=== PATIENT | male | born 1945 | race Caucasian/White ===

== ENCOUNTER 2020-12-25 10:43 | Outpatient (CLI) | payer MEDICARE, SELFPAY | END 2020-12-25 10:44 | disposition home or self-care (01) | PROVIDERS: PCP Family Medicine | DX: Z23 Encounter for immunization (principal) | CPT/HCPCS: 0001A; 91300 ==

== ENCOUNTER 2021-01-15 13:48 | Outpatient (CLI) | payer MEDICARE, SELFPAY | END 2021-01-15 13:49 | disposition home or self-care (01) | LOC: ANHCOVIDVC 13:48 | PROVIDERS: PCP Family Medicine | DX: Z23 Encounter for immunization (principal) | CPT/HCPCS: 0002A; 91300 ==

== ENCOUNTER 2021-10-21 13:54 | Emergency (ER) | payer MEDICARE, SELFPAY ==
[2021-10-21 14:12] VITALS: BP 146/82; PULSE 81; RESP 18; TEMP 36.4; O2SAT 100
--- NOTE | 2021-10-21 14:54 | ED.GENADULT ---
HPI - General Adult General Chief complaint: Upper Respiratory Infection Stated complaint: sorethroat Source: patient Mode of arrival: ambulatory Limitations: no limitations History of Present Illness HPI narrative: Patient is a 76-year-old male who presents to the [facility] via POV for evaluation of a sore throat that began this morning. Additionally, he reports swollen lymph nodes. He states his throat pain is intermittent and scratchy in nature. He also reports his sore throat has been improving after using warm salt water gargles. Nothing worsens symptoms. Denies known exposure to sick contacts. Patient reports he is fully vaccinated against Covid and influenza. He also reports having been vaccinated with the Covid booster. Related Data Home Medications Medication Instructions Recorded Confirmed isosorbide mononitrate 30 mg 30 mg PO DAILY 10/04/19 10/21/21 tablet,extended release 24 hr aspirin 81 mg tablet,delayed 81 mg PO DAILY 11/27/20 10/21/21 release calcium citrate 250 mg PO DAILY 11/27/20 10/21/21 cyanocobalamin (vitamin B-12) 5,000 mcg PO DAILY 11/27/20 10/21/21 5,000 mcg capsule ferrous sulfate 325 mg (65 mg 325 mg PO DAILY 11/27/20 10/21/21 iron) tablet multivitamin 1 tablet PO DAILY 11/27/20 10/21/21 omega-3 fatty acids 1,000 mg 1,000 mg PO DAILY 11/27/20 10/21/21 capsule rosuvastatin 20 mg tablet 20 mg PO DAILY 03/05/21 10/21/21 Allergies Allergy/AdvReac Type Severity Reaction Status Date / Time Penicillins Allergy Unknown Hives Verified 10/21/21 14:26 Review of Systems Review of Systems: Denies fever, chills, sweats, change in appetite, poor p.o. intake, rhinorrhea, sinus problems, nasal congestion, drooling, difficulty swallowing, voice changes, cough, shortness of breath, wheezing, abdominal pain, nausea, vomiting, diarrhea, chest pain, heart palpitations PMFSH Past Medical History Medical History Atrophy of muscle of right thigh Dysplastic nevi Hearing loss Macrocytic anemia Mixed axonal-demyelinating polyneuropathy Myelodysplasia (myelodysplastic syndrome) Other spondylosis, lumbar region Overweight (BMI 25.0-29.9) Squamous cell carcinoma of scalp Weight loss Family History Family History Father Cerebrovascular accident Social History Social History Second hand tobacco smoke exposure: No Alcohol intake: current Comments I have reviewed and agree with the patient's past medical, surgical, social, and family hx as documented by the RN. There is no relevant family history pertinent to the presenting complaint. Exam Narrative: GENERAL: Well-appearing, well-nourished, and in no acute distress. HEAD: Normocephalic, atraumatic. No sinus tenderness or facial swelling appreciated. EYES: PERRLA and EOMI. No evidence of erythema, swelling, or drainage. ENT: Bilateral external ears and ear canals normal. Bilateral TMs are normal.No TM perforation. Nares clear, no rhinorrhea or epistaxis. Bilateral turbinates without erythema/ swelling. Mucous membranes moist and pink. Uvula is midline without erythema and swelling. Posterior pharynx is subtly erythematous otherwise normal. Breath odor and voice normal. NECK: Supple. No Lymphadenopathy or nuchal rigidity appreciated. CHEST: Bilateral lung diehl are clear to auscultation. No respiratory distress. No evidence of cough or pleuritic cp upon examination. HEART: Regular rate and rhythm. No murmur, gallop, or rub heard. EXTREMITIES: Normal range of motion. No edema. SKIN: Warm, dry, no rash. NEURO: No focal deficits. Alert and oriented x3. Course Vital Signs Vital signs: Vital Signs Temperature 97.6 F 10/21/21 14:12 Pulse Rate 81 10/21/21 14:12 Respiratory Rate 18 10/21/21 14:12 Blood Pressure 146/82 H 10/21/21 14:12 Puls
[2021-10-22 12:27] LABS: SARS-CoV-2 RNA PCR Negative
== END 2021-10-21 15:10 | disposition home or self-care (01) ==
PROVIDERS: Emergency Provider Nurse Practitioner Family; PCP Family Medicine
DX: J02.9 Acute pharyngitis, unspecified (principal); Z20.822 Contact with and (suspected) exposure to COVID-19; D53.9 Nutritional anemia, unspecified; M62.551 Muscle wasting and atrophy, not elsewhere classified, right thigh; D46.9 Myelodysplastic syndrome, unspecified; M47.896 Other spondylosis, lumbar region; Z85.828 Personal history of other malignant neoplasm of skin
CPT/HCPCS: 87081; 87880; 99213; C9803; G0463; U0003; U0005

== ENCOUNTER 2022-09-23 10:04 | Outpatient (CLI) | payer MEDICARE, SELFPAY ==
[2022-09-23 18:59] LABS: Alanine Aminotransferase 26 U/L (6-50); Albumin Level 4.2 g/dL (3.5-5.1); Alkaline Phosphatase 56 U/L (38-126); Anion Gap 8 mmol/L (8-16); Aspartate Amino Transferase 54 U/L (17-59); Bilirubin,Total 0.6 mg/dL (0.2-1.3); Blood Urea Nitrogen 22 mg/dL (9-20); Calcium 8.8 mg/dL (8.4-10.2); Carbon Dioxide 27 mmol/L (22-30); Chloride 102 mmol/L (98-107); Cholesterol 151 mg/dL (0-200); Estimated Glomerular Filt Rate > 60; Glucose 155 mg/dL (65-110); HDL Direct 43 mg/dL; Potassium 4.1 mmol/L (3.4-5.0); Sodium 137 mmol/L (137-145); Triglycerides 70 mg/dL (<150)
[2022-09-23 19:10] LABS: LDL Cholesterol Direct 86 mg/dL
[2022-09-23 19:30] LABS: Creatinine Urine 98.8 mg/dL
[2022-09-23 19:33] LABS: MALB Creatinine Ratio 157.2 mg/g (0-30); Microalbumin Urine Random 155.3 mg/L (0-16.7)
[2022-09-23 20:01] LABS: Hemoglobin A1C 7.3 % (<5.7)
== END 2022-09-23 10:05 | disposition home or self-care (01) ==
PROVIDERS: PCP Family Medicine; Visit Provider Family Medicine
DX: E11.9 Type 2 diabetes mellitus without complications (principal)
CPT/HCPCS: 36415; 80053; 80061; 82043; 83036

== ENCOUNTER 2022-10-11 15:50 | Outpatient (CLI) | payer MEDICARE, SELFPAY ==
[2022-10-11 19:01] LABS: INR 1.2; Prothrombin Time 14.7 Seconds (11.1-14.7)
[2022-10-11 19:07] LABS: Basophils Percent Auto 0.7 % (0.2-1.2); Eosinophils Absolute Auto 0.1 K/mm3 (0-0.3); Eosinophils Percent Auto 2.4 % (0-4.4); Hematocrit 27.6 % (42.0-52.0); Hemoglobin 9.2 g/dL (14.0-18.0); Immature Granulocyte Absolute 0.01 K/mm3 (0.00-0.031); Immature Granulocyte Percent A 0.2 % (0-0.5); Lymphocytes Absolute Auto 1.04 K/mm3 (0.9-3.2); Lymphocytes Percent Auto 24.6 % (18.3-44.2); Mean Corpuscular HGB Conc 33.3 g/dl (32-36); Mean Corpuscular Hemoglobin 36.9 pg (26-34); Mean Corpuscular Volume 110.8 fl (80-100); Mean Platelet Volume 10.1 fl (7.4-10.4); Monocytes Absolute Auto 0.4 K/mm3 (0.1-0.6); Monocytes Percent Auto 9.5 % (2.6-8.5); Neutrophils Absolute Auto 2.7 K/mm3 (1.3-6.7); Neutrophils Percent Auto 62.6 % (45.5-73.1); Platelet Count Result 237 k/mm3 (150-375); Red Blood Count 2.49 M/mm3 (4.6-6.20); Red Cell Distribution Width 15.1 % (11.5-14.5); White Blood Count 4.2 K/mm3 (4.5-10.0)
[2022-10-11 19:08] LABS: Alanine Aminotransferase 36 U/L (6-50); Albumin Level 4.4 g/dL (3.5-5.1); Alkaline Phosphatase 59 U/L (38-126); Anion Gap 6 mmol/L (8-16); Aspartate Amino Transferase 34 U/L (17-59); Bilirubin,Total 0.4 mg/dL (0.2-1.3); Blood Urea Nitrogen 29 mg/dL (9-20); Calcium 8.8 mg/dL (8.4-10.2); Carbon Dioxide 27 mmol/L (22-30); Chloride 101 mmol/L (98-107); Estimated Glomerular Filt Rate 53; Glucose 326 mg/dL (65-110); Potassium 4.7 mmol/L (3.4-5.0); Sodium 134 mmol/L (137-145)
[2022-10-11 20:11] LABS: Platelet Estimate Adequate (Adequate); Schistocytes None Seen (NORMAL)
[2022-10-11 20:12] LABS: Anisocytosis 3+ (NORMAL)
== END 2022-10-11 15:51 | disposition home or self-care (01) ==
PROVIDERS: PCP Family Medicine; Visit Provider Internal Medicine Cardiovascular Disease
DX: I25.119 Atherosclerotic heart disease of native coronary artery with unspecified angina pectoris (principal); Z01.812 Encounter for preprocedural laboratory examination
CPT/HCPCS: 36415; 80053; 85025; 85610

== ENCOUNTER 2022-10-12 10:14 | Emergency (ER) | payer MEDICARE, SELFPAY ==
--- NOTE | ~2022-10-12 | CT_ITS ---
EXAMINATION: CT abdomen pelvis wo con DATE: 10/12/2022 13:30 INDICATION: Abdominal pain. Constipation. TECHNIQUE: Computed tomography (CT) of the abdomen and pelvis was performed without intravenous contr ast. Automated exposure control and iterative reconstruction technique were employed. The dose-length product was 386.29 mGy-cm. COMPARISON: None FINDINGS: Small bilateral pleural effusions, right greater than left. Right basilar atelectasis. Heart size is normal. No pericardial effusion. Atherosclerotic coronary artery calcification. Liver, gallbladder, p ancreas and bilateral adrenal glands are normal. Multiple splenic calcifications consistent with old granulomatous disease. Bilateral nephrolithiasis with 5 stones in the right kidney measuring up to 2 mm and 4 mm stone at the upper pole of the left kidney. Mild right and moderate left hydroureteroneph rosis. 2 mm nonobstructing stone in the dependent aspect of the dilated distalmost left ureter positi oned approximately 3 to 4 cm from the left ureterovesicular junction. 6 mm and 4 mm bladder stones in the dependent right trigonal region of the bladder, unclear whether freely mobile in the bladder or position within a ureterocele at the right ureterovesicular junction. Prostatomegaly which impresses upon the base of the distended bladder. Multiple phleboliths in the pelvis. Peyronie's disease with s mall amount of calcification along the penile tunica albuginea. Moderate amount of stool scattered th roughout the colon. Small bowel and appendix are normal. No free intraperitoneal gas or fluid. No pat hologically enlarged abdominal or pelvic lymphadenopathy. Small fat-containing left inguinal hernia. Mild lumbar dextrocurvature with severe spondylosis. Chronic T12 compression fracture with 50% anteri or vertebral body height loss. Severe left hip osteoarthritis. Chronic sclerotic lesion in the right supra-acetabular region likely representing an enchondroma which can be seen dating back to 02/01/2014 . IMPRESSION: 1. Bilateral nephrolithiasis with mild right and moderate left hydroureteronephrosis. There is also d istention of the bladder suggesting this may be related to outlet obstruction from the enlarged prost ate. There is however a 2 mm stone in the dependent aspect of the dilated distal left ureter, not cur rently but potentially transiently obstructing. There are also 6 mm and 4 mm stones at the right depe ndent bladder near the expected location of the right ureterovesicular junction, unclear whether free ly mobile or position within a ureterocele and also potentially obstructing. 2. Moderate amount of stool scattered throughout the colon consistent with constipation. 3. Small bilateral pleural effusions, right greater than left. Reviewed, dictated and finalized at location L. CAL THERAPIST IMPRESSION: 1. Bilateral nephrolithiasis with mild right and moderate left hydroureteroneph rosis. There is also distention of the bladder suggesting this may be related t o outlet obstruction from the enlarged prostate. There is however a 2 mm stone in the dependent aspect of the dilated distal left ureter, not currently but po tentially transiently obstructing. There are also 6 mm and 4 mm stones at the r ight dependent bladder near the expected location of the right ureterovesicular junction, unclear whether freely mobile or position within a ureterocele and a lso potentially obstructing. 2. Moderate amount of stool scattered throughout the colon consistent with cons tipation. 3. Small bilateral pleural effusions, right greater than left.
[2022-10-12 10:19] VITALS: BP 148/68; PULSE 92; RESP 16; TEMP 36.6; O2SAT 99
--- NOTE | 2022-10-12 12:38 | ED.ABDPAIN ---
HPI - Abdominal Pain General Chief Complaint: Abdominal Pain Stated Complaint: constipation Time Seen by Provider: 10/12/22 12:24 History of Present Illness HPI narrative: Patient is a 77-year-old male with a history of hypertension, hyperlipidemia, hypothyroidism, CHF presenting with abdominal pain. Patient states over the last 2 days he has been unable to have a bowel movement and has been feeling increasingly bloated. States that he has diffuse abdominal pain that is worsened with any slight movement. States that he became nauseated last night which has persisted through this afternoon. States he was able to tolerate water and has not had any vomiting. States that he has been unable to urinate since last night states he feels its related to his bloating. He denies prior abdominal surgeries. States he is unable to pass flatus. Denies recent fevers or chills, headache, chest pain, shortness of breath, cough, dysuria, hematuria, leg swelling. Related Data Home Medications Medication Instructions Recorded Confirmed isosorbide mononitrate 30 mg 30 mg PO DAILY 10/04/19 01/11/22 tablet,extended release 24 hr aspirin 81 mg tablet,delayed 81 mg PO DAILY 11/27/20 01/11/22 release (Adult Low Dose Aspirin) calcium citrate 250 mg PO DAILY 11/27/20 01/11/22 cyanocobalamin (vitamin B-12) 5,000 mcg PO DAILY 11/27/20 01/11/22 5,000 mcg capsule ferrous sulfate 325 mg (65 mg 325 mg PO DAILY 11/27/20 01/11/22 iron) tablet (Feosol) multivitamin (Daily Multi-Vitamin 1 tablet PO DAILY 11/27/20 01/11/22 tablet) omega-3 fatty acids 1,000 mg 1,000 mg PO DAILY 11/27/20 01/11/22 capsule (Super [place]-3) insulin detemir U-100 100 unit/mL 6 unit subcut QHS 01/11/22 01/11/22 (3 mL) subcutaneous pen (Levemir FlexTouch U-100 Insulin) Allergies Allergy/AdvReac Type Severity Reaction Status Date / Time Penicillins Allergy Unknown Hives Verified 09/27/22 10:52 Review of Systems Review of Systems: All systems reviewed & are unremarkable except as noted in HPI and below PMFSH Past Medical History Medical History Atrophy of muscle of right thigh Diabetic nephropathy associated with type 2 diabetes mellitus Dysplastic nevi Hearing loss Macrocytic anemia Mixed axonal-demyelinating polyneuropathy Myelodysplasia (myelodysplastic syndrome) Other spondylosis, lumbar region Overweight (BMI 25.0-29.9) Squamous cell carcinoma of scalp Weight loss Surgical History Surgical History History of quadruple bypass Family History Family History Father Cerebrovascular accident Mother due to natural causes Son Diabetes mellitus Social History Social History Smoking status: Never smoker Second hand tobacco smoke exposure: No Alcohol intake: current Substance use: never Substance use type: does not use Lack of Transportation: No Lack of Food: Never True Current Housing: I Have Housing Concerned About Future Housing: No Difficulty Paying Gas/Electric Bills: No Difficulty Paying for Meds: No Currently Unemployed: No Education: Bachelor's Degree Difficulty w/ Childcare or Family Care: No Additional living arrangements comments: Exam Narrative: GENERAL: Well-appearing, well-nourished, and in no acute distress. HEAD: Normocephalic, atraumatic. EYES: PERRLA and EOMI. ENT: Nares clear, no rhinorrhea or epistaxis. Mucous membranes moist. NECK: Supple. CHEST: Clear to auscultation. No respiratory distress. HEART: Regular rate and rhythm. No murmur heard. Normal peripheral pulses. ABDOMEN: Soft, diffusely tender, no guarding or rebound, normal active bowel sounds. EXTREMITIES: Normal range of motion. No edema. SKIN: Warm, dry, no rash. MARY
[2022-10-12 12:56] LABS: Basophils Percent Auto 0.5 % (0.2-1.2); Eosinophils Absolute Auto 0.1 K/mm3 (0-0.3); Eosinophils Percent Auto 0.8 % (0-4.4); Hematocrit 28.5 % (42.0-52.0); Hemoglobin 9.4 g/dL (14.0-18.0); Immature Granulocyte Absolute 0.02 K/mm3 (0.00-0.031); Immature Granulocyte Percent A 0.3 % (0-0.5); Lymphocytes Absolute Auto 0.94 K/mm3 (0.9-3.2); Lymphocytes Percent Auto 15.6 % (18.3-44.2); Mean Corpuscular Hemoglobin 37.3 pg (26-34); Mean Corpuscular Volume 113.1 fl (80-100); Mean Platelet Volume 10.1 fl (7.4-10.4); Monocytes Absolute Auto 0.5 K/mm3 (0.1-0.6); Monocytes Percent Auto 8.9 % (2.6-8.5); Neutrophils Absolute Auto 4.5 K/mm3 (1.3-6.7); Neutrophils Percent Auto 73.9 % (45.5-73.1); Platelet Count Result 243 k/mm3 (150-375); Red Blood Count 2.52 M/mm3 (4.6-6.20); Red Cell Distribution Width 15.2 % (11.5-14.5)
[2022-10-12 13:09] VITALS: BP 150/77; PULSE 83; O2SAT 100
[2022-10-12 13:09] LABS: Alanine Aminotransferase 28 U/L (6-50); Albumin Level 4.5 g/dL (3.5-5.1); Alkaline Phosphatase 71 U/L (38-126); Anion Gap 8 mmol/L (8-16); Aspartate Amino Transferase 23 U/L (17-59); Bilirubin,Total 0.8 mg/dL (0.2-1.3); Blood Urea Nitrogen 34 mg/dL (9-20); Calcium 9.1 mg/dL (8.4-10.2); Carbon Dioxide 24 mmol/L (22-30); Chloride 103 mmol/L (98-107); Estimated CRCL calculation 19 ml/min; Estimated Glomerular Filt Rate 24; Glucose 193 mg/dL (65-110); Lipase 18 U/L (23-300); Potassium 4.8 mmol/L (3.4-5.0); Sodium 135 mmol/L (137-145)
--- NOTE | 2022-10-12 13:54 | PC.NURSE ---
pt up to desk. states he just had a bowel movement and feels much better. states is going to go home and come back if any further problems.
== END 2022-10-12 13:44 | disposition left against medical advice (07) ==
PROVIDERS: Emergency Provider Emergency Medicine; PCP Family Medicine
DX: N17.9 Acute kidney failure, unspecified (principal); R33.9 Retention of urine, unspecified; K59.00 Constipation, unspecified; I11.0 Hypertensive heart disease with heart failure; I50.9 Heart failure, unspecified; E11.21 Type 2 diabetes mellitus with diabetic nephropathy; E78.5 Hyperlipidemia, unspecified; E03.9 Hypothyroidism, unspecified; D46.9 Myelodysplastic syndrome, unspecified; G61.81 Chronic inflammatory demyelinating polyneuritis; D53.9 Nutritional anemia, unspecified; E66.3 Overweight; Z68.25 Body mass index [BMI] 25.0-25.9, adult; Z85.828 Personal history of other malignant neoplasm of skin; Z79.82 Long term (current) use of aspirin; Z79.4 Long term (current) use of insulin; Z79.84 Long term (current) use of oral hypoglycemic drugs; J90 Pleural effusion, not elsewhere classified; N13.2 Hydronephrosis with renal and ureteral calculous obstruction
CPT/HCPCS: 36415; 74176; 80053; 83690; 85025; 99284

== ENCOUNTER 2022-10-12 19:52 | Observation (INO) | payer MEDICARE, SELFPAY ==
--- NOTE | ~2022-10-12 | XR_ITS ---
EXAMINATION: XR chest 1V portable DATE: 10/13/2022 00:42 INDICATION: Midsternal chest pain TECHNIQUE: frontal view of the chest was obtained. COMPARISON: Chest radiograph dated 05/28/2005 FINDINGS: Opacities at the right lower lung zone. Small right pleural effusion with blunting at the right costo phrenic angle. Mild left basilar opacities. No pneumothorax or left-sided pleural effusion. The cardi omediastinal silhouette is within normal limits for AP technique. Median sternotomy wires and mediast inal surgical clips are seen, likely from prior coronary artery bypass grafting. IMPRESSION: 1. Small left pleural effusion with associated right basilar atelectasis and/or pneumonia. 2. Mild atelectasis at the left lung base. Reviewed, dictated and finalized at location A. E CLEANER
--- NOTE | ~2022-10-12 | US_ITS ---
EXAMINATION: US renal BI DATE: 10/13/2022 23:15 INDICATION: Bilateral hydronephrosis. Acute kidney injury. TECHNIQUE: Multiple ultrasound grayscale images of the kidneys were obtained. COMPARISON: CT abdomen and pelvis 10/12/2022 FINDINGS: The right kidney measures 10.9 x 4.7 x 6.0 cm. The left kidney measures 10.5 x 5.7 x 5.7 cm. The kidn eys demonstrate normal parenchymal echogenicity. There is no hydronephrosis. The bladder is decompres sed by a Webber catheter. Bladder wall thickening is noted. IMPRESSION: 1. Normal kidneys. No hydronephrosis. 2. Wall thickening, which may be secondary to neurogenic bladder or chronic outlet obstruction. Reviewed, dictated and finalized at location A. RNAL SALESPERSON IMPRESSION: 1. Normal kidneys. No hydronephrosis. 2. Wall thickening, which may be secondary to neurogenic bladder or chronic out let obstruction.
[2022-10-12 20:32] VITALS: BP 155/89; PULSE 88; RESP 15; TEMP 37.3; O2SAT 100
[2022-10-13] VITALS (95 sets, daily range): BP systolic 117–162; BP diastolic 61–104; PULSE 68–102; RESP 12–32; TEMP 36.3–36.6; O2SAT 90–100; BMI 24.9
--- NOTE | 2022-10-13 00:23 | ECG_ITS ---
Measurements Intervals [place] Rate: 78 P: 48 OR: 191 QRS: -68 QRSD: 165 T: 105 QT: 433 QTc: 496 Interpretive Statements SINUS RHYTHM WITH SINUS ARRHYTHMIA RIGHT BUNDLE BRANCH BLOCK [120+ ms QRS DURATION, UPRIGHT V1, 40+ ms S IN I/aVL/V4/V5/V6] LEFT ANTERIOR FASCICULAR BLOCK [QRS AXIS <= -45, QR IN I, RS IN II] POSSIBLE SEPTAL MYOCARDIAL INFARCTION , OF INDETERMINATE AGE [30 ms Q WAVE IN V1/V2] ST DEVIATION AND MODERATE T-WAVE ABNORMALITY, CONSIDER LATERAL ISCHEMIA [-0.1+ mV T WAVE IN I/aVL/V5/V6] NO PREVIOUS ECG AVAILABLE FOR COMPARISON Electronically Signed On 10-13-2022 17:54:08 SUBSTANCE ABUSE PREVENTION COORDINATOR by Marycruz Evans M.D.
[2022-10-13] MEDS: ASPIRIN 81 MG CHEWABLE TABLET 324 MG PO (00:42)
[2022-10-13 01:30] LABS: Basophils Percent Auto 0.9 % (0.2-1.2); Eosinophils Percent Auto 0.7 % (0-4.4); Hematocrit 27.2 % (42.0-52.0); Hemoglobin 8.9 g/dL (14.0-18.0); Immature Granulocyte Absolute 0.01 K/mm3 (0.00-0.031); Immature Granulocyte Percent A 0.2 % (0-0.5); Lymphocytes Absolute Auto 0.88 K/mm3 (0.9-3.2); Lymphocytes Percent Auto 19.7 % (18.3-44.2); Mean Corpuscular HGB Conc 32.7 g/dl (32-36); Mean Corpuscular Hemoglobin 37.1 pg (26-34); Mean Corpuscular Volume 113.3 fl (80-100); Mean Platelet Volume 9.9 fl (7.4-10.4); Monocytes Absolute Auto 0.5 K/mm3 (0.1-0.6); Monocytes Percent Auto 10.5 % (2.6-8.5); Platelet Count Result 194 k/mm3 (150-375); Red Cell Distribution Width 15.4 % (11.5-14.5); White Blood Count 4.5 K/mm3 (4.5-10.0)
[2022-10-13 01:41] LABS: Platelet Estimate Adequate (Adequate)
[2022-10-13 01:42] LABS: Anion Gap 9 mmol/L (8-16); Anisocytosis 1+ (NORMAL); Blood Urea Nitrogen 40 mg/dL (9-20); Carbon Dioxide 25 mmol/L (22-30); Chloride 105 mmol/L (98-107); Estimated Glomerular Filt Rate 20; Glucose 231 mg/dL (65-110); Sodium 139 mmol/L (137-145)
[2022-10-13 01:55] LABS: Troponin I 0.487 ng/mL (0.000-0.034)
--- NOTE | 2022-10-13 01:55 | ED.RECABL ---
HPI - Recheck/Abnormal Lab/Rx General Chief Complaint: Recheck/Abnormal Lab/Rx Stated Complaint: Abnormal findings; Tori told to come back Time Seen by Provider: 10/13/22 00:08 History of Present Illness HPI narrative: 77-year-old male who had been seen here earlier for constipation and difficulty urinating, left the ER before his labs and imaging results come back, he was found to have an KARYNA with doubling of his creatinine. When he was at home, he had an episode of chest pain, which he states is very common for him and he took a nitroglycerin at home and his chest pain went away. Related Data Home Medications Medication Instructions Recorded Confirmed isosorbide mononitrate 30 mg 30 mg PO DAILY 10/04/19 01/11/22 tablet,extended release 24 hr aspirin 81 mg tablet,delayed 81 mg PO DAILY 11/27/20 01/11/22 release (Adult Low Dose Aspirin) calcium citrate 250 mg PO DAILY 11/27/20 01/11/22 cyanocobalamin (vitamin B-12) 5,000 mcg PO DAILY 11/27/20 01/11/22 5,000 mcg capsule ferrous sulfate 325 mg (65 mg 325 mg PO DAILY 11/27/20 01/11/22 iron) tablet (Feosol) multivitamin (Daily Multi-Vitamin 1 tablet PO DAILY 11/27/20 01/11/22 tablet) omega-3 fatty acids 1,000 mg 1,000 mg PO DAILY 11/27/20 01/11/22 capsule (Super [place]-3) insulin detemir U-100 100 unit/mL 6 unit subcut QHS 01/11/22 01/11/22 (3 mL) subcutaneous pen (Levemir FlexTouch U-100 Insulin) Allergies Allergy/AdvReac Type Severity Reaction Status Date / Time Penicillins Allergy Unknown Hives Verified 09/27/22 10:52 Review of Systems Review of Systems: CONST: No fever. HEENT: No sore throat C/V: Chest pain now resolved RESP: No cough GI: Reports distention and constipation : Difficulty urinating M/S: No joint pain. SKIN: No rash. NEURO: [No headache or focal numbness or weakness] PSYCH: [No depression] [facility] Past Medical History Medical History Atrophy of muscle of right thigh Diabetic nephropathy associated with type 2 diabetes mellitus Dysplastic nevi Hearing loss Macrocytic anemia Mixed axonal-demyelinating polyneuropathy Myelodysplasia (myelodysplastic syndrome) Other spondylosis, lumbar region Overweight (BMI 25.0-29.9) Squamous cell carcinoma of scalp Weight loss Surgical History Surgical History History of quadruple bypass Family History Family History Father Cerebrovascular accident Mother due to natural causes Son Diabetes mellitus Social History Social History Smoking status: Never smoker Second hand tobacco smoke exposure: No Alcohol intake: current Substance use: never Substance use type: does not use Lack of Transportation: No Lack of Food: Never True Current Housing: I Have Housing Concerned About Future Housing: No Difficulty Paying Gas/Electric Bills: No Difficulty Paying for Meds: No Currently Unemployed: No Education: Bachelor's Degree Difficulty w/ Childcare or Family Care: No Additional living arrangements comments: Exam Narrative: EXAMINATION OF ORGAN SYSTEMS/BODY AREAS: Constitutional: Vital signs per nursing GENERAL:[No acute distress, non-toxic appearing.] HEAD: Normal with no signs of head trauma. EYES: EOMI, conjunctiva normal ENT: Hearing grossly intact LUNGS: Nonlabored breathing. HEART: [Regular rate and rhythm] ABD: [Soft], [nontender to palpation] EXT: Normal range of motion SKIN: [No rashes or lesions.] NEURO: [Alert and oriented x 3. No gross focal sensory or strength deficits.] PSYCH: Normal affect Course Vital Signs Vital signs: Vital Signs Temperature 99.1 F 10/12/22 20:32 Pulse Rate 88 10/12/22 20:32 Respiratory Rate 15 10/12/22 20:32 Blood Pressure 155/89 H 10/12/22 20:32 Pulse Oxi
[2022-10-13 02:25] LABS: Influenza A QL RT-PCR Negative (Negative); Influenza B QL RT-PCR Negative (Negative); SARS-CoV-2 RNA PCR Negative
[2022-10-13 05:19] LABS: Troponin I 0.923 ng/mL (0.000-0.034)
--- NOTE | 2022-10-13 05:29 | PM.IMHP ---
H&P: HPI History of Present Illness Date/Time: 10/13/22 05:29 Chief Complaint: Acute urinary obstruction. Chest pain Narrative: This is a 69 year old gentleman with a past medical history including but not limited to hypertension, diabetes, dyslipidemia, heart disease, hypothyroidism who presented to the emergency department with complaint of urinary retention. He was seen earlier yesterday for constipation and difficulty urinating, left the ER before his labs and imaging results come back, he was found to have an KARYNA with doubling of his baseline creatinine.? While he was at home, he had an episode of chest pain, which is not unusual for him and had resolved after he took some nitroglycerin. Noted that the patient was previously scheduled for an elective outpatient cardiac catheterization with his primary public health veterinarian Dr. Chang on 10/14/2022. On arrival to the emergency department he was stable and afebrile with a temperature of 99.1? F, pulse rate 88, respiratory rate 15, blood pressure 122/77, pulse ox 98% on room air. His EKG shows normal sinus rhythm with rate of 78, left axis, pr interval 191, QRS duration 165, corrected QTC 467. No ST segment elevation or depression. Impression no EKG evidence of acute ischemia or dysrhythmia. He CBC shows a WBC of 4.5 hemoglobin 8.9, hematocrit 27.2 and a platelet count of 194. Chemistry shows a sodium of 135, potassium 4.8, chloride 103, bicarb 24, BUN 34, creatinine 2.6. Repeat chemistry shows serum sodium 139 potassium 5, chloride 105, bicarb 25, BUN 40, creatinine 3 and blood glucose 231. Troponin elevated at 0.48; a repeat troponin has almost double at 0.92. The patient was started on aspirin, heparin drip. Repeat EKG was ordered which reveals sinus rhythm with sinus arrhythmia, right bundle branch block, left anterior fascicular block, possible septal myocardial infarction, moderate T-wave abnormality, consider lateral ischemia.. Cardiology was consulted for possible cardiac catheterization today. This patient is NPO. The [facility] medicines service was consulted for evaluation and further management. Review of Systems Review of Systems: All systems reviewed & are unremarkable except as noted in HPI and below Constitutional: Constitutional: Reports as per HPI, Denies body ache(s) and Denies chills Eyes: Eyes: Reports as per HPI and Denies blurry vision ENT: Reports system reviewed and no additional complaints, except as documented, Denies dysphagia, Denies epistaxis and Denies nasal congestion Cardiovascular: Cardiovascular: Reports as per HPI, Reports chest pain, Denies pedal edema, Denies leg edema and Denies palpitations Respiratory: Respiratory: Reports as per HPI, Denies no additional respiratory complaints, Denies cough and Denies dyspnea Gastrointestinal: Gastrointestinal: Reports as per HPI, Reports melena, Denies diarrhea, Denies nausea, Denies vomiting and Denies hematemesis Genitourinary: Genitourinary: Reports no additional male genitourinary complaints, Reports as per HPI, Denies hematuria and Denies dysuria Musculoskeletal: Musculoskeletal: Reports no additional musculoskeletal complaints, Denies back pain, Denies arthralgias, Denies joint swelling and Denies neck pain Integumentary/Breasts: Skin/Breast: Reports system reviewed and no additional complaints, except as docu and Denies rash Neurologic: Reports system reviewed and no additional complaints, except as documented and Reports as per HPI Psychiatric: Psychiatric: Reports no additional psychiatric complaints and Reports as per HPI [facility] Past Medical History Medical History Atrophy of muscle of right thigh Diabetic nephropathy associated with type 2 diabetes mellitus Dysplastic nevi Hearing loss Macrocytic anemia Mixed axonal-demyelinating polyneuropathy Myelodysplasia (myelodysplastic syndrome) Other spondylosis, lumbar region Overweight (BMI 25.0-29.9) Squamous tianna
--- NOTE | 2022-10-13 05:35 | ECG_ITS ---
Measurements Intervals [place] Rate: 72 P: 52 MT: 196 QRS: -65 QRSD: 159 T: 122 QT: 444 QTc: 489 Interpretive Statements SINUS RHYTHM WITH SINUS ARRHYTHMIA RIGHT BUNDLE BRANCH BLOCK [120+ ms QRS DURATION, UPRIGHT V1, 40+ ms S IN I/aVL/V4/V5/V6] LEFT ANTERIOR FASCICULAR BLOCK [QRS AXIS <= -45, QR IN I, RS IN II] POSSIBLE SEPTAL MYOCARDIAL INFARCTION , OF INDETERMINATE AGE [30 ms Q WAVE IN V1/V2] MODERATE T-WAVE ABNORMALITY, CONSIDER LATERAL ISCHEMIA [-0.1+ mV T WAVE IN I/aVL/V5/V6] COMPARED TO ECG 10/13/2022 00:30:00 NO SIGNIFICANT CHANGES Electronically Signed On 10-13-2022 17:55:26 AUTOMOBILE UPHOLSTERER APPRENTICE by Marycruz Evans M.D.
[2022-10-13 06:10] LABS: Eosinophils Absolute Auto 0.1 K/mm3 (0-0.3); Eosinophils Percent Auto 1.4 % (0-4.4); Hematocrit 27.2 % (42.0-52.0); Immature Granulocyte Absolute 0.01 K/mm3 (0.00-0.031); Immature Granulocyte Percent A 0.2 % (0-0.5); Lymphocytes Absolute Auto 1.13 K/mm3 (0.9-3.2); Lymphocytes Percent Auto 27.1 % (18.3-44.2); Mean Corpuscular HGB Conc 33.1 g/dl (32-36); Mean Corpuscular Hemoglobin 37.7 pg (26-34); Mean Corpuscular Volume 113.8 fl (80-100); Mean Platelet Volume 10.2 fl (7.4-10.4); Monocytes Absolute Auto 0.6 K/mm3 (0.1-0.6); Monocytes Percent Auto 13.4 % (2.6-8.5); Neutrophils Absolute Auto 2.4 K/mm3 (1.3-6.7); Neutrophils Percent Auto 56.9 % (45.5-73.1); Platelet Count Result 213 k/mm3 (150-375); Red Blood Count 2.39 M/mm3 (4.6-6.20); Red Cell Distribution Width 15.2 % (11.5-14.5); White Blood Count 4.2 K/mm3 (4.5-10.0)
--- NOTE | 2022-10-13 06:13 | PC.NURSE ---
heparin orders clarified with provider
[2022-10-13 06:23] LABS: INR 1.3; Prothrombin Time 15.3 Seconds (11.1-14.7)
[2022-10-13 06:24] LABS: Partial Thromboplastin Time 31.6 SECONDS (22.3-36.8)
[2022-10-13] MEDS: HEPARIN SOD/D5W 100 UNITS/ML 25,000 UNITS/250 ML BAG 8 UNITS IV CONT (06:24)
[2022-10-13 07:10] LABS: Platelet Estimate Adequate (Adequate)
[2022-10-13 07:12] LABS: Anisocytosis 1+ (NORMAL); Schistocytes 1+ (NORMAL)
[2022-10-13 07:13] LABS: Helmet Cells 1+ (NORMAL); Macrocytosis 1+ (NORMAL); Microcytosis 1+ (NORMAL); Poikilocytosis 1+ (NORMAL)
--- NOTE | 2022-10-13 09:39 | ADMGEN ---
This patient, Darien Guzman, was admitted to Virtual Bed 3rd Floor-1. Patient/family oriented to hospital policies and general routines including ID bracelet, bed and alarms, visiting hours, pain management, procedures, bathroom and other care routines, personal items, smoking policy, room service/diet, and visiting hours. Information on how to activate the Rapid Response Team has been discussed. Patient/Family are encouraged to report perceived risks to care and to ask questions if they do not understand what they are told or what they should do. Admission done at bedside in ED. Pt pleasant,answered all questions to the best of his ability.
--- NOTE | 2022-10-13 15:47 | PM.CNCAR ---
Assessment and Plan Assessment and plan (1) CAD (coronary artery disease): Code(s): I25.10 - Atherosclerotic heart disease of [place] coronary artery without angina pectoris Status: Acute Plan Patient's anginal symptoms are stable. Discussed with Dr. Chang as well. He does not need inpatient cardiac cath at this time, and we will reschedule his outpatient cardiac cath. Will need his KARYNA to be resolved prior to cath. Recommend to continue his home cardiac meds. I will stop his Heparin drip. At this time, he does not need further inpatient cardiac evaluation. History of Present Illness History of Present Illness Consult date/time: 10/13/22 15:47 Requesting physician: Beatriz Shelton MD Consult reason: Other (Cardiac cath) Reason For Visit: Urinary Retention, KARYNA Narrative: This is a 77-year-old male who is a patient of Dr. Chang's. He has a history of known CAD with history of remote CABG x 4, hypertension, type 2 diabetes mellitus, dyslipidemia. He recently saw Dr. Chang on 09/29/22 and due to anginal symptoms, he was set up for cardiac cath as an outpatient on 10/14. Patient states he presented yesterday with constipation. He had a CT scan done here showing possible bladder outlet obstruction from enlarge prostate. He states he was called to come back to the ED. Patient was found with an KARYNA of 3 (baseline SCr is normal). He was found with minimally elevated troponins. We are being consulted for this given he was supposed to have cath tomorrow. Patient tells me that his anginal symptoms are stable and have not progressed since his visit with Dr. Chang. He is currently not complaining of chest pain and when he does get his angina, it resolves with NTG. Review of Systems Review of Systems: 12-point ROS obtained. Negative, unless stated in HPI. [facility] Past Medical History Medical History Atrophy of muscle of right thigh Diabetic nephropathy associated with type 2 diabetes mellitus Dysplastic nevi Hearing loss Macrocytic anemia Mixed axonal-demyelinating polyneuropathy Myelodysplasia (myelodysplastic syndrome) Other spondylosis, lumbar region Overweight (BMI 25.0-29.9) Squamous cell carcinoma of scalp Weight loss Surgical History Surgical History History of quadruple bypass Family History Family History Father Cerebrovascular accident Mother due to natural causes Son Diabetes mellitus Social History Social History Smoking status: Never smoker Second hand tobacco smoke exposure: No Alcohol intake: former Substance use: never Substance use type: does not use Lack of Transportation: No Lack of Food: Never True Current Housing: I Have Housing Concerned About Future Housing: No Difficulty Paying Gas/Electric Bills: No Difficulty Paying for Meds: No Currently Unemployed: No Education: Don't Know Difficulty w/ Childcare or Family Care: No Additional living arrangements comments: Spiritual care concerns: No Meds Home Medications and Allergies Home Medications Medication Instructions Recorded Confirmed Type isosorbide mononitrate 30 mg 30 mg PO DAILY 10/04/19 10/13/22 History tablet,extended release 24 hr aspirin 81 mg tablet,delayed 81 mg PO DAILY 11/27/20 10/13/22 History release (Adult Low Dose Aspirin) calcium citrate 250 mg PO DAILY 11/27/20 10/13/22 History cyanocobalamin (vitamin B-12) 5,000 mcg PO DAILY 11/27/20 10/13/22 History 5,000 mcg capsule ferrous sulfate 325 mg (65 mg 325 mg PO DAILY 11/27/20 10/13/22 History iron) tablet (Feosol) multivitamin (Daily Multi-Vitamin 1 tablet PO DAILY 11/27/20 10/13/22 History tablet) omega-3 fatty acids 1,000 mg 1,000 mg PO DAILY 11/27/20 10/13/22 History capsule ([place]ale
[2022-10-13 17:30] LABS: Glucose Point of Care 266 mg/dl (65-105)
[2022-10-13 20:29] LABS: Glucose Point of Care 331 mg/dl (65-105)
[2022-10-13] MEDS: INSULIN GLARGINE (*BKC) 100 UNITS/ML SUB-Q (21:21)
[2022-10-13 21:29] LABS: Hematocrit 26.9 % (42.0-52.0); Hemoglobin 8.9 g/dL (14.0-18.0)
[2022-10-13 21:40] LABS: Anion Gap 6 mmol/L (8-16); Blood Urea Nitrogen 31 mg/dL (9-20); Calcium 8.8 mg/dL (8.4-10.2); Carbon Dioxide 27 mmol/L (22-30); Chloride 106 mmol/L (98-107); Estimated CRCL calculation 31 ml/min; Estimated Glomerular Filt Rate 42; Glucose 282 mg/dL (65-110); Potassium 4.4 mmol/L (3.4-5.0); Sodium 139 mmol/L (137-145)
[2022-10-13 22:13] LABS: Prostate Specific Antigen 1.9 ng/mL (< OR = 4.0)
[2022-10-14] VITALS (7 sets, daily range): BP systolic 130–152; BP diastolic 67–74; PULSE 73–93; RESP 16–20; TEMP 36.5–36.7; O2SAT 96–100
[2022-10-14] MEDS: rOPINIRole HCL 0.25 MG TABLET PO (00:10)
[2022-10-14 04:38] LABS: Basophils Percent Auto 0.7 % (0.2-1.2); Eosinophils Absolute Auto 0.1 K/mm3 (0-0.3); Eosinophils Percent Auto 2.2 % (0-4.4); Hematocrit 28.5 % (42.0-52.0); Hemoglobin 9.4 g/dL (14.0-18.0); Immature Granulocyte Absolute 0.01 K/mm3 (0.00-0.031); Immature Granulocyte Percent A 0.2 % (0-0.5); Lymphocytes Absolute Auto 1.12 K/mm3 (0.9-3.2); Lymphocytes Percent Auto 24.9 % (18.3-44.2); Mean Corpuscular Hemoglobin 37.3 pg (26-34); Mean Corpuscular Volume 113.1 fl (80-100); Mean Platelet Volume 10.4 fl (7.4-10.4); Monocytes Absolute Auto 0.6 K/mm3 (0.1-0.6); Monocytes Percent Auto 12.2 % (2.6-8.5); Neutrophils Absolute Auto 2.7 K/mm3 (1.3-6.7); Neutrophils Percent Auto 59.8 % (45.5-73.1); Platelet Count Result 220 k/mm3 (150-375); Red Blood Count 2.52 M/mm3 (4.6-6.20); White Blood Count 4.5 K/mm3 (4.5-10.0)
[2022-10-14 04:47] LABS: Albumin Level 3.9 g/dL (3.5-5.1); Anion Gap 6 mmol/L (8-16); Blood Urea Nitrogen 27 mg/dL (9-20); Carbon Dioxide 30 mmol/L (22-30); Chloride 106 mmol/L (98-107); Estimated CRCL calculation 35 ml/min; Estimated Glomerular Filt Rate 49; Glucose 149 mg/dL (65-110); Potassium 3.9 mmol/L (3.4-5.0); Sodium 142 mmol/L (137-145)
[2022-10-14 05:15] LABS: Platelet Estimate Adequate (Adequate)
[2022-10-14 05:16] LABS: Macrocytosis 1+ (NORMAL); Schistocytes 1+ (NORMAL)
[2022-10-14] MEDS: LEVOTHYROXINE SODIUM 100 MCG TABLET BY MOUTH (06:12)
--- NOTE | 2022-10-14 08:27 | PM.CNNEP ---
Assessment and Plan Assessment and plan (1) KARYNA (acute kidney injury): Code(s): N17.9 - Acute kidney failure, unspecified Status: Acute Assessment and Plan: The patient has acute kidney injury. His baseline creatinine is normal. He had urinary retention on admission. A Webber catheter was placed and had a good volume of urine since then. His creatinine peaked at 3 and has come down to 1.4. Most likely this is obstructive uropathy. This is most likely benign prostatic hypertrophy. It is thought that possibly his constipation lead to extra pressure on his prostate leading to the obstruction. Will check a urinalysis. If the creatinine does not return to baseline then we can do more evaluation of the kidneys. A creatinine has been ordered for tomorrow The patient is almost back to baseline as far as his creatinine goes. At this point he needs to see a urologist to further manage this issue especially in light that he is going to have a cardiac catheterization soon. (2) Angina pectoris, unstable: Code(s): I20.0 - Unstable angina Status: Acute Assessment and Plan: The patient has been having chronic stable angina and is going to get a cardiac catheterization at some point. Cardiology is on the case (3) Diabetic nephropathy associated with type 2 diabetes mellitus: Code(s): E11.21 - Type 2 diabetes mellitus with diabetic nephropathy Status: Acute Assessment and Plan: Management per hospitalist History of Present Illness Reason for Consult Consult date: 10/14/22 Chief Complaint Chief complaint: Urinary Retention, KARYNA History of Present Illness Narrative: Darien is a very pleasant 77-year-old gentleman who has multiple medical problems including coronary artery disease, benign prostatic hypertrophy, diabetes, mixed axonal demyelinating polyneuropathy, myelodysplastic syndrome. The patient came in the hospital because he was constipated had abdominal pain. He says that he had a big alliance party for his uncle and the patient ate poorly. He became constipated and was unable to have a bowel movement. He tried cathartics but they did not work so he went to the ER. He waited 4hours in the ER to be seen and just happened to have a bowel movement so he felt better. So he left. They had however already drawn his blood and when the blood returned he had an elevated creatinine and so he was asked to come back. He was admitted to the hospital. In the meantime the patient has been having angina and was talking with his health education director and was scheduled for a cardiac catheterization this week at [facility]. This of course was canceled because he is here. Upon admission the patient was found to have a high bladder volume and so a catheter rub was placed. After that his creatinine came down nicely and is almost normal at 1.4 today. The patient says he takes Advil every once in a while but has not had any in no few weeks. He says that he noted that his urine was darker recently. He says that normally he gets up at night once a night but in the last few weeks has been getting up twice a night. His flows have been pretty good. He denies any bloody urine, foamy urine, kidney stones, or bladder infections. He has no pain with urination. Review of Systems Constitutional: Constitutional: Reports no additional constitutional complaints Eyes: Eyes: Reports no additional eye complaints ENT: Reports system reviewed and no additional complaints, except as documented Cardiovascular: Cardiovascular: Reports no additional cardiovascular complaints Respiratory: Respiratory: Reports no additional respiratory complaints Gastrointestinal: Gastrointestinal: Reports no additional gastrointestinal complaints Genitourinary: Genitourinary: Reports no additional male genitourinary complaints Musculoskeletal: Musculoskeletal: Reports no additional musculoskeletal complaints Integumentary/Deysi
[2022-10-14 08:29] LABS: Glucose Point of Care 143 mg/dl (65-105)
--- NOTE | 2022-10-14 10:16 | PM.IMPN ---
Progress Note: A&P Assessment and Plan (1) Elevated troponin: Code(s): R77.8 - Other specified abnormalities of plasma proteins Status: Acute Assessment and Plan: Patient present with a history of recent episode of chest pain, promptly improve after nitro paste. He has a history of coronary artery disease and is well known by Dr. Gómez. Patient previously scheduled for cardiac catheterization as an outpatient. Cardiology consulted for possible cardiac catheterization and patient's is NPO. 10/13/2022 interval history: 77-year-old male with history of coronary artery disease with 4 vessel CABG and chronic angina presented emergency department with complaint of chest he was found to have elevated and his tropes were elevated he was started on heparin drip, he was seen by Cardiology after evaluation patient did not need any further ischemic workup and heparin was stopped, patient will be seen by his primary dial mounter as outpatient further recommendation to follow, remains clinically stable will continue to monitor. (2) Acute urinary retention: Code(s): R33.8 - Other retention of urine Status: Acute Assessment and Plan: Patient denies previous episode of acute urinary retention. Creatinine is elevated from 1.3-2.6 on 10/12/2022. Obtain renal ultrasound. Follow-up with urology consult. Monitor daily intake output. Avoid nephrotoxic medication. Five monitor serum creatinine in a.m. labs. May consider Nephrology consult if this is not improving. (3) KARYNA (acute kidney injury): Code(s): N17.9 - Acute kidney failure, unspecified Status: Acute Assessment and Plan: Acute kidney injury likely prerenal versus ischemic ATN versus obstruction. Given the context, obstruction appears to be likely. (4) Diabetic nephropathy associated with type 2 diabetes mellitus: Code(s): E11.21 - Type 2 diabetes mellitus with diabetic nephropathy Status: Acute Assessment and Plan: Establish diabetes mellitus. This morning blood glucose was 231. Obtain serial Accu-Cheks. Currently patient is NPO. Resume home regimen once diet can be reinstated. (5) CAD (coronary artery disease): Code(s): I25.10 - Atherosclerotic heart disease of [place] coronary artery without angina pectoris Status: Acute Assessment and Plan: As above. Patient describe intermittent episode of chest pain, likely resolve with nitroglycerin. Proceed with cardiac catheterization. Continue home cardioprotective regimen. (6) Overweight (BMI 25.0-29.9): Code(s): E66.3 - Overweight Status: Acute Assessment and Plan: Patient was advised to observe caloric restriction and exercise. (7) Hypothyroidism (acquired): Code(s): E03.9 - Hypothyroidism, unspecified Status: Acute Assessment and Plan: Resume supplementation when diet is a wean stated above. (8) Mixed hyperlipidemia: Code(s): E78.2 - Mixed hyperlipidemia Status: Acute Assessment and Plan: Check lipid profile is as an outpatient. Resume home medication with diet is reinstated. (9) Sleep disorder: Code(s): G47.9 - Sleep disorder, unspecified Status: Acute Assessment and Plan: CPAP/BiPAP at home per home parameters. (10) Vitamin B12 deficiency: Code(s): E53.8 - Deficiency of other specified B group vitamins Status: Acute Assessment and Plan: Currently being supplemented. Plan Code status full code. Patient admitted under observation service. DVT prophylaxes patient was previously on Xarelto. Currently on Ramesh hoses. Subjective Date/time seen: 10/13/22 3375 HPINarrative: This is a 69 year old gentleman with a past medical history including but not limited to hypertension, diabetes, dyslipidemia, heart disease, hypothyroidism who presented to the emergency department with complaint of urinary retention.? He was seen earlier yesterday for constipa
--- NOTE | 2022-10-14 10:41 | PM.PNCARD ---
Progress Note: A&P Assessment and Plan (1) CAD (coronary artery disease): Code(s): I25.10 - Atherosclerotic heart disease of [place] coronary artery without angina pectoris Status: Acute Plan Patient's anginal symptoms are stable. He does not need inpatient cardiac cath at this time, and we will reschedule his outpatient cardiac cath. Acute kidney injury has improved post relief of obstruction Recommend to continue his home cardiac meds. He is instructed to limit his activity until after angiogram At this time, he does not need further inpatient cardiac evaluation. Subjective Date/time seen: 10/14/22 10:41 Interval history: 77-year-old admitted for constipation, urinary obstruction, renal failure. Also the plan was to have a catheterization as an outpatient today. Date of service 10/14/2022: Feels okay. No chest pain at present. No shortness breath abdominal pain Review of Systems Review of Systems: All systems reviewed & are unremarkable except as noted in HPI and below Constitutional: Constitutional: Denies chills ENT: Reports Normal hearing present Cardiovascular: Cardiovascular: Reports chest pain Respiratory: Respiratory: Denies dyspnea Gastrointestinal: Gastrointestinal: Denies abdominal pain and Reports constipation Musculoskeletal: Musculoskeletal: Denies back pain Integumentary/Breasts: Skin/Breast: Denies skin pain Endocrine: Endocrine: Denies excessive sweating Hematologic/Lymphatic: Hematologic/Lymphatic: Denies easy bleeding Exam Narrative: Alert oriented Const: General: comfortable and no acute distress HENMT: Face/Nose/Sinus: Normal nares present Eyes: Sclera: sclerae normal Neck: Neck: supple Carotids: no bruits Resp: Effort & Inspection: normal respiratory effort Cardio: Rate: regular rate Rhythm: regular rhythm GI: Inspection: non-distended GI Palp: Yes Soft to palpation Auscultation: normal bowel sounds Urinary Catheter: Urinary Catheter: patent and draining Skin: General skin exam: normal color Neuro: Speech: normal speech Extrem: General: normal to inspection Psych: Affect: normal affect Objective Data Vital Signs Vital Signs: Vital Signs - 24 hr 10/13/22 10:48 10/13/22 11:00 10/13/22 11:01 Temperature Pulse Rate 82 72 81 Respiratory Rate 25 H 15 20 Blood Pressure 128/69 Pulse Oximetry 95 94 95 Oxygen Delivery 10/13/22 11:15 10/13/22 11:16 10/13/22 11:30 Temperature Pulse Rate 72 79 70 Respiratory Rate 14 24 H 14 Blood Pressure 142/89 H Pulse Oximetry 96 97 97 Oxygen Delivery 10/13/22 11:31 10/13/22 11:54 10/13/22 12:00 Temperature Pulse Rate 72 85 84 Respiratory Rate 19 15 18 Blood Pressure 145/73 H Pulse Oximetry 99 98 100 Oxygen Delivery 10/13/22 12:01 10/13/22 12:15 10/13/22 12:16 Temperature Pulse Rate 74 88 73 Respiratory Rate 19 17 19 Blood Pressure 142/81 H 162/99 H Pulse Oximetry 99 98 99 Oxygen Delivery 10/13/22 12:30 10/13/22 13:01 10/13/22 13:15 Temperature Pulse Rate 93 102 H 73 Respiratory Rate 18 26 H 16 Blood Pressure Pulse Oximetry 100 99 Oxygen Delivery 10/13/22 13:17 10/13/22 13:30 10/13/22 13:31 Temperature Pulse Rate 77 79 73 Respiratory Rate 16 32 H 20 Blood Pressure 138/75 131/73 Pulse Oximetry 100 90 100 Oxygen Delivery 10/13/22 13:50 10/13/22 14:00 10/13/22 14:01 Temperature Pulse Rate 85 80 78 Respiratory Rate 19 16 16 Blood Pressure 145/86 H Pulse Oximetry Oxygen Delivery 10/13/22 15:07 10/13/22 15:15 10/13/22 15:16 Temperature Pulse Rate 91 74 76 Respiratory Rate 27 H 20 21 H Blood Pressure 139/104 H Pulse Oximetry 99 94 92 Oxygen Delivery 10/13/22 15:35 10/13/22 15:45 10/13/22 15:46 Temperature Pulse Rate 79 85 78 Respiratory Rate 25 H 23 H 20 Blood Pressure 119/101 H Pulse Oximetry 100 100 99 Oxygen Delivery 10/13/22 15:47 10/13/22 16:00 10/13/22
[2022-10-14 11:04] LABS: Add Urine Microscopic? YES; Appearance Urine Clear (Clear); Bilirubin Urine Negative (Negative); Blood Urine 2+ (Negative); Color Urine Light Yellow (Yellow); Glucose Urine UA 2+ mg/dL (Negative); Ketones Urine Negative (Negative); Leukocyte Esterase Ur Negative LEU/UL (NEGATIVE); Nitrate Urine Negative (Negative); Protein Urine 2+ mg/dL (Negative); Urobilinogen Urine 0.2 mg/dL (<2.0)
[2022-10-14] MEDS: TAMSULOSIN HCL 0.4 MG CAPSULE PO (11:18)
[2022-10-14] MEDS: CYANOCOBALAMIN 1,000 MCG TABLET 5000 MCG PO (11:18)
[2022-10-14] MEDS: MULTIVITAMINS THERAPEUTIC TAB (*BKC) 1 TABLET PO (11:18)
[2022-10-14] MEDS: ASPIRIN 81 MG ENTERIC TABLET PO (11:18)
[2022-10-14] MEDS: FERROUS SULFATE 324 MG TABLET PO (11:18)
[2022-10-14] MEDS: OMEGA 3 POLYUNSAT FATTY ACIDS 1 GM CAP PO (11:18)
[2022-10-14] MEDS: RANOLAZINE 500 MG TAB.ER.12H PO (11:19)
[2022-10-14] MEDS: PANTOPRAZOLE SOD SESQUIHYDRATE 20 MG TAB PO (11:19)
[2022-10-14] MEDS: ENOXAPARIN 40 MG/0.4 ML SYRINGE SUB-Q (11:19)
[2022-10-14] MEDS: ISOSORBIDE MONONITRATE 30 MG TAB.ER.24H PO (11:19)
[2022-10-14 11:20] LABS: RBC Urine >75 /hpf (0-2); Squamous Epithelial Cell Urine Rare /hpf (Few); WBC Urine 51-75 /hpf (0-3)
[2022-10-14 11:32] LABS: Glucose Point of Care 273 mg/dl (65-105)
--- NOTE | 2022-10-14 12:00 | WPDURCON ---
Assessment and Plan Assessment and plan (1) Acute urinary retention: Code(s): R33.8 - Other retention of urine Status: Acute Assessment and Plan: Resolved s/p catheter placement. Ok to discharge home with saini. Will do a voiding trial in the office in 7-10 days. Tamsulosin started, continue post discharge. (2) KARYNA (acute kidney injury): Code(s): N17.9 - Acute kidney failure, unspecified Status: Acute Assessment and Plan: Improved s/p cath placement from 3.0 to 1.4. (3) BPH (benign prostatic hyperplasia): Code(s): N40.0 - Benign prostatic hyperplasia without lower urinary tract symptoms Status: Acute Assessment and Plan: Hydronephrosis resolved. Urology Consult Note HPI Date Seen: 10/14/22 Time Seen: 09:15 Requesting Physician: Beatriz Shelton MD Primary Care Provider: Jay Jay Reynoso MD Consult Narrative Reason for consult: Retention/BPH Narrative: Darien Guzman is a 77 year old male who initially presented to the ER a few days ago for severe constipation and was discharged home, however when his CT results were noted there was bladder distention and bilateral hydronephrosis noted as well as KARYNA with a creatinine of 3.0 so he was called to come back to the ER. He states he had a good bowel movement at home before returning back to the ER. He was also having intermittent episodes of angina especially with exercise recently. A saini was placed upon arrival and >2500cc were noted upon return. His WBC is 4.5 today and creatinine has decreased significantly to 1.40 today s/p catheter placement and a repeat EDGAR today shows resolution of his hydronephrosis and bladder distention. He states that he doesn't urinate frequently at home, or at night, and denies straining or hesitancy. He has no history of being on BPH or OAB medications. Review of Systems Cardiovascular: Cardiovascular: Denies chest pain Respiratory: Respiratory: Reports no additional respiratory complaints Gastrointestinal: Gastrointestinal: Reports no additional gastrointestinal complaints, Denies abdominal pain, Denies nausea and Denies vomiting Genitourinary: Genitourinary: Denies hematuria, Denies dysuria, Denies flank pain, Denies urinary frequency, Denies urinary hesitancy and Denies urinary urgency [facility] Past Medical History Medical History Atrophy of muscle of right thigh Diabetic nephropathy associated with type 2 diabetes mellitus Dysplastic nevi Hearing loss Macrocytic anemia Mixed axonal-demyelinating polyneuropathy Myelodysplasia (myelodysplastic syndrome) Other spondylosis, lumbar region Overweight (BMI 25.0-29.9) Squamous cell carcinoma of scalp Weight loss Surgical History Surgical History History of quadruple bypass Family History Family History Father Cerebrovascular accident Mother due to natural causes Son Diabetes mellitus Social History Social History Smoking status: Never smoker Second hand tobacco smoke exposure: No Alcohol intake: former Substance use: never Substance use type: does not use Lack of Transportation: No Lack of Food: Never True Current Housing: I Have Housing Concerned About Future Housing: No Difficulty Paying Gas/Electric Bills: No Difficulty Paying for Meds: No Currently Unemployed: No Education: Don't Know Difficulty w/ Childcare or Family Care: No Additional living arrangements comments: Spiritual care concerns: No Meds Home Medications and Allergies Home Medications Medication Instructions Recorded Confirmed Type isosorbide mononitrate 30 mg 30 mg PO DAILY 10/04/19 10/13/22 History tablet,extended release 24 hr asp
--- NOTE | 2022-10-14 12:24 | PM.DS ---
DS: Admitting Diagnosis Discharge Date 10/13/2022 Admitting Diagnosis urinary retention DS: Discharge Diagnosis Discharge Diagnosis (1) Elevated troponin: Code(s): R77.8 - Other specified abnormalities of plasma proteins Status: Acute Assessment and Plan: Patient present with a history of recent episode of chest pain, promptly improve after nitro paste. He has a history of coronary artery disease and is well known by Dr. Gómez. Patient previously scheduled for cardiac catheterization as an outpatient. Cardiology consulted for possible cardiac catheterization and patient's is NPO. 10/13/2022 interval history: 77-year-old male with history of coronary artery disease with 4 vessel CABG and chronic angina presented emergency department with complaint of chest he was found to have elevated and his tropes were elevated he was started on heparin drip, he was seen by Cardiology after evaluation patient did not need any further ischemic workup and heparin was stopped, patient will be seen by his primary driver as outpatient further recommendation to follow, remains clinically stable will continue to monitor. (2) Acute urinary retention: Code(s): R33.8 - Other retention of urine Status: Acute Assessment and Plan: Patient denies previous episode of acute urinary retention. Creatinine is elevated from 1.3-2.6 on 10/12/2022. Obtain renal ultrasound. Follow-up with urology consult. Monitor daily intake output. Avoid nephrotoxic medication. Five monitor serum creatinine in a.m. labs. May consider Nephrology consult if this is not improving. (3) KARYNA (acute kidney injury): Code(s): N17.9 - Acute kidney failure, unspecified Status: Acute Assessment and Plan: Acute kidney injury likely prerenal versus ischemic ATN versus obstruction. Given the context, obstruction appears to be likely. (4) Diabetic nephropathy associated with type 2 diabetes mellitus: Code(s): E11.21 - Type 2 diabetes mellitus with diabetic nephropathy Status: Acute Assessment and Plan: Establish diabetes mellitus. This morning blood glucose was 231. Obtain serial Accu-Cheks. Currently patient is NPO. Resume home regimen once diet can be reinstated. (5) CAD (coronary artery disease): Code(s): I25.10 - Atherosclerotic heart disease of [place] coronary artery without angina pectoris Status: Acute Assessment and Plan: As above. Patient describe intermittent episode of chest pain, likely resolve with nitroglycerin. Proceed with cardiac catheterization. Continue home cardioprotective regimen. (6) Overweight (BMI 25.0-29.9): Code(s): E66.3 - Overweight Status: Acute Assessment and Plan: Patient was advised to observe caloric restriction and exercise. (7) Hypothyroidism (acquired): Code(s): E03.9 - Hypothyroidism, unspecified Status: Acute Assessment and Plan: Resume supplementation when diet is a wean stated above. (8) Mixed hyperlipidemia: Code(s): E78.2 - Mixed hyperlipidemia Status: Acute Assessment and Plan: Check lipid profile is as an outpatient. Resume home medication with diet is reinstated. (9) Sleep disorder: Code(s): G47.9 - Sleep disorder, unspecified Status: Acute Assessment and Plan: CPAP/BiPAP at home per home parameters. (10) Vitamin B12 deficiency: Code(s): E53.8 - Deficiency of other specified B group vitamins Status: Acute Assessment and Plan: Currently being supplemented. Plan Code status full code. Patient admitted under observation service. DVT prophylaxes patient was previously on Xarelto. Currently on Ramesh hoses. DS: Summary Hospital Course Reason for hospitalization: Acute urinary obstruction. Chest pain Narrative: This is a 69 year old gentleman with a past medical history including but not limited to hypertension, diabetes, dyslipidemia, he
[2022-10-14 12:45] LABS: Hemoglobin A1C 7.7 % (<5.7)
== END 2022-10-14 13:08 | disposition home or self-care (01) ==
LOC: ANHED 10-13 03:09 → ANHIMU 10-14 12:23
PROVIDERS: Internal Medicine Nephrology; Admitting Provider Internal Medicine; Emergency Provider Emergency Medicine; PCP Family Medicine; Visit Provider Family Medicine
DX: R77.8 Other specified abnormalities of plasma proteins (principal); R33.8 Other retention of urine; N17.9 Acute kidney failure, unspecified; E11.21 Type 2 diabetes mellitus with diabetic nephropathy; G61.81 Chronic inflammatory demyelinating polyneuritis; D46.9 Myelodysplastic syndrome, unspecified; M47.816 Spondylosis without myelopathy or radiculopathy, lumbar region; I25.10 Atherosclerotic heart disease of native coronary artery without angina pectoris; Z95.1 Presence of aortocoronary bypass graft; I10 Essential (primary) hypertension; Z20.822 Contact with and (suspected) exposure to COVID-19; E78.2 Mixed hyperlipidemia; E03.9 Hypothyroidism, unspecified; R79.89 Other specified abnormal findings of blood chemistry; R94.4 Abnormal results of kidney function studies; R19.7 Diarrhea, unspecified; N40.1 Benign prostatic hyperplasia with lower urinary tract symptoms; N13.8 Other obstructive and reflux uropathy; G47.9 Sleep disorder, unspecified; Z99.89 Dependence on other enabling machines and devices; R39.198 Other difficulties with micturition; D23.9 Other benign neoplasm of skin, unspecified; J90 Pleural effusion, not elsewhere classified; J98.11 Atelectasis; I45.2 Bifascicular block; H91.90 Unspecified hearing loss, unspecified ear; E66.3 Overweight; E53.8 Deficiency of other specified B group vitamins; F10.90 Alcohol use, unspecified, uncomplicated; Z68.23 Body mass index [BMI] 23.0-23.9, adult; Z79.82 Long term (current) use of aspirin; Z79.84 Long term (current) use of oral hypoglycemic drugs; Z79.4 Long term (current) use of insulin; Z79.899 Other long term (current) drug therapy; Z83.3 Family history of diabetes mellitus
CPT/HCPCS: 36415; 71045; 76775; 80048; 80069; 81001; 82948; 83036; 84153; 84484; 85014; 85018; 85025; 85610; 85730; 87636; 93005; 96372; 96374; 99285; A9270; G0378; J1644; J1650; J1815

== ENCOUNTER 2022-10-26 08:34 | Outpatient (CLI) | payer MEDICARE, SELFPAY ==
[2022-10-26 21:47] LABS: Anion Gap 7 mmol/L (8-16); Blood Urea Nitrogen 28 mg/dL (9-20); Carbon Dioxide 26 mmol/L (22-30); Chloride 102 mmol/L (98-107); Estimated Glomerular Filt Rate > 60; Glucose 151 mg/dL (65-110); Sodium 135 mmol/L (137-145)
== END 2022-10-26 08:35 | disposition home or self-care (01) ==
LOC: ANHGOSHLAB 08:36
PROVIDERS: PCP Family Medicine; Visit Provider Physician Assistant
DX: N17.9 Acute kidney failure, unspecified (principal)
CPT/HCPCS: 36415; 80048

== ENCOUNTER 2022-11-01 10:30 | Outpatient (CLI) | payer MEDICARE, SELFPAY ==
[2022-11-01 11:12] LABS: Basophils Percent Auto 0.8 % (0.2-1.2); Eosinophils Absolute Auto 0.1 K/mm3 (0-0.3); Eosinophils Percent Auto 3.2 % (0-4.4); Hematocrit 26.4 % (42.0-52.0); Hemoglobin 8.4 g/dL (14.0-18.0); Lymphocytes Absolute Auto 1.01 K/mm3 (0.9-3.2); Lymphocytes Percent Auto 27.2 % (18.3-44.2); Mean Corpuscular HGB Conc 31.8 g/dl (32-36); Mean Corpuscular Hemoglobin 37.8 pg (26-34); Mean Corpuscular Volume 118.9 fl (80-100); Mean Platelet Volume 10.3 fl (7.4-10.4); Monocytes Absolute Auto 0.4 K/mm3 (0.1-0.6); Monocytes Percent Auto 10.8 % (2.6-8.5); Neutrophils Absolute Auto 2.2 K/mm3 (1.3-6.7); Platelet Count Result 258 k/mm3 (150-375); Red Blood Count 2.22 M/mm3 (4.6-6.20); Red Cell Distribution Width 15.7 % (11.5-14.5); White Blood Count 3.7 K/mm3 (4.5-10.0)
[2022-11-01 11:25] LABS: Alanine Aminotransferase 43 U/L (6-50); Albumin Level 3.9 g/dL (3.5-5.1); Alkaline Phosphatase 64 U/L (38-126); Anion Gap 7 mmol/L (8-16); Aspartate Amino Transferase 38 U/L (17-59); Bilirubin,Total 0.4 mg/dL (0.2-1.3); Blood Urea Nitrogen 24 mg/dL (9-20); Calcium 8.4 mg/dL (8.4-10.2); Carbon Dioxide 27 mmol/L (22-30); Chloride 104 mmol/L (98-107); Estimated Glomerular Filt Rate 49; Glucose 254 mg/dL (65-110); Potassium 5.1 mmol/L (3.4-5.0); Sodium 138 mmol/L (137-145)
[2022-11-01 12:18] LABS: Anisocytosis 1+ (NORMAL); Hypochromasia 1+ (NORMAL); Macrocytosis 1+ (NORMAL); Platelet Estimate Adequate (Adequate); Poikilocytosis 1+ (NORMAL); Schistocytes Rare (NORMAL)
== END 2022-11-01 10:31 | disposition home or self-care (01) ==
LOC: ANHLAB 10:34
PROVIDERS: PCP Family Medicine; Visit Provider Internal Medicine Cardiovascular Disease
DX: R94.39 Abnormal result of other cardiovascular function study (principal)
CPT/HCPCS: 36415; 80053; 85025

== ENCOUNTER 2022-11-11 04:51 | Emergency (ER) | payer MEDICARE, SELFPAY ==
[2022-11-11] VITALS (9 sets, daily range): BP systolic 102–107; BP diastolic 59–68; PULSE 69–81; RESP 16–114; TEMP 36–36.1; O2SAT 98–100
--- NOTE | 2022-11-11 05:56 | ED.MALEGU ---
HPI - Male Genitourinary General Chief complaint: Urogenital-Male Stated complaint: bllod in urine Time Seen by Provider: 11/11/22 04:58 History of Present Illness HPI Narrative: Patient is a 77-year-old male who presents ER with hematuria and Webber catheter not draining. He has had acute urinary retention and has had Webber catheter placed. He then failed his postvoid residual and has had to keep it in. No fevers or chills or sweats. No abdominal pain here is not on blood thinners. Related Data Home Medications Medication Instructions Recorded Confirmed isosorbide mononitrate 30 mg 30 mg PO DAILY 10/04/19 10/26/22 tablet,extended release 24 hr aspirin 81 mg tablet,delayed 81 mg PO DAILY 11/27/20 10/26/22 release (Adult Low Dose Aspirin) calcium citrate 250 mg PO DAILY 11/27/20 10/26/22 cyanocobalamin (vitamin B-12) 5,000 mcg PO DAILY 11/27/20 10/26/22 5,000 mcg capsule ferrous sulfate 325 mg (65 mg 325 mg PO DAILY 11/27/20 10/26/22 iron) tablet (Feosol) multivitamin (Daily Multi-Vitamin 1 tablet PO DAILY 11/27/20 10/26/22 tablet) omega-3 fatty acids 1,000 mg 1,000 mg PO DAILY 11/27/20 10/26/22 capsule (Super [place]-3) insulin detemir U-100 100 unit/mL 5 unit subcut QHS 01/11/22 10/26/22 (3 mL) subcutaneous pen (Levemir FlexTouch U-100 Insulin) pantoprazole 20 mg tablet,delayed 20 mg PO DAILY 10/13/22 10/26/22 release ranolazine 500 mg tablet,extended 500 mg PO DAILY 10/13/22 10/26/22 release,12 hr Allergies Allergy/AdvReac Type Severity Reaction Status Date / Time Penicillins Allergy Unknown Hives Verified 10/26/22 09:05 Review of Systems Gastrointestinal: Gastrointestinal: Denies abdominal pain, Denies nausea and Denies vomiting Genitourinary: Genitourinary: Reports hematuria, Reports oliguria and Denies urinary frequency PMFSH Past Medical History Medical History Atrophy of muscle of right thigh Diabetic nephropathy associated with type 2 diabetes mellitus Dysplastic nevi Hearing loss Macrocytic anemia Mixed axonal-demyelinating polyneuropathy Myelodysplasia (myelodysplastic syndrome) Other spondylosis, lumbar region Overweight (BMI 25.0-29.9) Squamous cell carcinoma of scalp Weight loss Surgical History Surgical History History of quadruple bypass Family History Family History Father Cerebrovascular accident Mother due to natural causes Son Diabetes mellitus Social History Social History Smoking status: Never smoker Second hand tobacco smoke exposure: No Alcohol intake: former Substance use: never Substance use type: does not use Lack of Transportation: No Lack of Food: Never True Current Housing: I Have Housing Concerned About Future Housing: No Difficulty Paying Gas/Electric Bills: No Difficulty Paying for Meds: No Currently Unemployed: No Education: Don't Know Difficulty w/ Childcare or Family Care: No Additional living arrangements comments: Spiritual care concerns: No Exam Narrative: GENERAL: Well-appearing, well-nourished, and in no acute distress. HEAD: Normocephalic, atraumatic. ABDOMEN: Soft, nontender, nondistended. : Circumcised penis with hypospadias with Webebr coming from urethra. No discharge. Webber with blood in it. EXTREMITIES: Normal range of motion. No edema. SKIN: Warm, dry, no rash. NEURO: Alert and oriented x3. PSYCH: Normal mood and affect. Course Course Emergency Course: Webber flushed and now draining without issue. Sediment was removed. Vital Signs Vital signs: Vital Signs Temperature 96.9 F L 11/11/22 05:00 Pulse Rate 69 11/11/22 05:00 Respiratory Rate 18 11/11/22 05:00 Blood Pressure 102/59 L 11/11/22 05:00 Pulse Oxime
== END 2022-11-11 06:37 | disposition home or self-care (01) ==
PROVIDERS: Emergency Provider Emergency Medicine; PCP Family Medicine
DX: T83.091A Other mechanical complication of indwelling urethral catheter, initial encounter (principal); E11.21 Type 2 diabetes mellitus with diabetic nephropathy; E11.42 Type 2 diabetes mellitus with diabetic polyneuropathy; D46.9 Myelodysplastic syndrome, unspecified; G61.81 Chronic inflammatory demyelinating polyneuritis; D53.9 Nutritional anemia, unspecified; Z79.82 Long term (current) use of aspirin; Z79.84 Long term (current) use of oral hypoglycemic drugs; Y84.6 Urinary catheterization as the cause of abnormal reaction of the patient, or of later complication, without mention of misadventure at the time of the procedure
CPT/HCPCS: 99282

== ENCOUNTER 2022-11-19 10:11 | Outpatient (CLI) | payer MEDICARE, SELFPAY ==
[2022-11-19 10:47] LABS: Basophils Percent Auto 0.6 % (0.2-1.2); Eosinophils Absolute Auto 0.1 K/mm3 (0-0.3); Eosinophils Percent Auto 1.9 % (0-4.4); Hematocrit 29.4 % (42.0-52.0); Hemoglobin 9.6 g/dL (14.0-18.0); Immature Granulocyte Absolute 0.01 K/mm3 (0.00-0.031); Immature Granulocyte Percent A 0.3 % (0-0.5); Lymphocytes Absolute Auto 0.91 K/mm3 (0.9-3.2); Lymphocytes Percent Auto 29.4 % (18.3-44.2); Mean Corpuscular HGB Conc 32.7 g/dl (32-36); Mean Corpuscular Hemoglobin 37.8 pg (26-34); Mean Corpuscular Volume 115.7 fl (80-100); Mean Platelet Volume 9.6 fl (7.4-10.4); Monocytes Absolute Auto 0.3 K/mm3 (0.1-0.6); Monocytes Percent Auto 10.7 % (2.6-8.5); Neutrophils Absolute Auto 1.8 K/mm3 (1.3-6.7); Neutrophils Percent Auto 57.1 % (45.5-73.1); Platelet Count Result 218 k/mm3 (150-375); Red Blood Count 2.54 M/mm3 (4.6-6.20); Red Cell Distribution Width 15.3 % (11.5-14.5); White Blood Count 3.1 K/mm3 (4.5-10.0)
[2022-11-19 10:55] LABS: Alanine Aminotransferase 16 U/L (6-50); Albumin Level 3.8 g/dL (3.5-5.1); Alkaline Phosphatase 66 U/L (38-126); Anion Gap 8 mmol/L (8-16); Aspartate Amino Transferase 18 U/L (17-59); Bilirubin,Total 0.4 mg/dL (0.2-1.3); Blood Urea Nitrogen 27 mg/dL (9-20); Calcium 8.9 mg/dL (8.4-10.2); Carbon Dioxide 26 mmol/L (22-30); Chloride 104 mmol/L (98-107); Estimated Glomerular Filt Rate 49; Glucose 267 mg/dL (65-110); Potassium 5.3 mmol/L (3.4-5.0); Sodium 138 mmol/L (137-145)
[2022-11-19 11:02] LABS: Transferrin 184 mg/dL (206-381)
== END 2022-11-19 10:12 | disposition home or self-care (01) ==
LOC: ANHLAB 10:13
PROVIDERS: PCP Family Medicine; Visit Provider Internal Medicine Cardiovascular Disease
DX: I50.42 Chronic combined systolic (congestive) and diastolic (congestive) heart failure (principal)
CPT/HCPCS: 36415; 80053; 82728; 84466; 85025

== ENCOUNTER 2022-12-06 11:06 | Outpatient (CLI) | payer MEDICARE, SELFPAY ==
[2022-12-06 11:52] LABS: Basophils Percent Auto 0.6 % (0.2-1.2); Eosinophils Absolute Auto 0.1 K/mm3 (0-0.3); Eosinophils Percent Auto 1.4 % (0-4.4); Hematocrit 26.6 % (42.0-52.0); Hemoglobin 8.7 g/dL (14.0-18.0); Immature Granulocyte Absolute 0.01 K/mm3 (0.00-0.031); Immature Granulocyte Percent A 0.3 % (0-0.5); Lymphocytes Absolute Auto 1.29 K/mm3 (0.9-3.2); Lymphocytes Percent Auto 35.9 % (18.3-44.2); Mean Corpuscular HGB Conc 32.7 g/dl (32-36); Mean Corpuscular Hemoglobin 37.8 pg (26-34); Mean Corpuscular Volume 115.7 fl (80-100); Mean Platelet Volume 9.7 fl (7.4-10.4); Monocytes Absolute Auto 0.4 K/mm3 (0.1-0.6); Monocytes Percent Auto 9.7 % (2.6-8.5); Neutrophils Absolute Auto 1.9 K/mm3 (1.3-6.7); Neutrophils Percent Auto 52.1 % (45.5-73.1); Platelet Count Result 192 k/mm3 (150-375); Red Cell Distribution Width 14.7 % (11.5-14.5); White Blood Count 3.6 K/mm3 (4.5-10.0)
[2022-12-06 12:08] LABS: Albumin Level 3.8 g/dL (3.5-5.1); Alkaline Phosphatase 65 U/L (38-126); Anion Gap 6 mmol/L (8-16); Aspartate Amino Transferase 21 U/L (17-59); Bilirubin,Total 0.4 mg/dL (0.2-1.3); Blood Urea Nitrogen 31 mg/dL (9-20); Calcium 8.7 mg/dL (8.4-10.2); Carbon Dioxide 25 mmol/L (22-30); Chloride 106 mmol/L (98-107); Estimated Glomerular Filt Rate 53; Glucose 299 mg/dL (65-110); Potassium 4.9 mmol/L (3.4-5.0); Sodium 137 mmol/L (137-145)
[2022-12-06 12:18] LABS: Transferrin 187 mg/dL (206-381)
[2022-12-07 00:02] LABS: Alanine Aminotransferase 20 U/L (6-50)
== END 2022-12-06 11:07 | disposition home or self-care (01) ==
LOC: ANHLAB 11:11
PROVIDERS: PCP Family Medicine; Visit Provider Internal Medicine Cardiovascular Disease
DX: I50.42 Chronic combined systolic (congestive) and diastolic (congestive) heart failure (principal)
CPT/HCPCS: 36415; 80053; 82728; 84466; 85025

== ENCOUNTER 2023-01-18 13:45 | Outpatient (RCR) | payer MEDICARE, SELFPAY ==
--- NOTE | 2023-01-18 15:21 | PTOPEVAL1 ---
Assessment and note entered by Barbara Chinchilla, PT, DPT Evaluation Information Assessment Status Evaluation Diagnosis cervicalgia Onset 4-6 weeks Subjective Information Pt initially states he thinks he brought this on himself. He states he was working out 3-4 times a week using a resisted neck extension machine. He states about a week after this he started to have pain that become really severe really quickly, sending him to the ED. He states imaging at the ED showed arthritis in his neck. He is currently wearing an inflatable cervical decompression device. He states anytime he tries to move he has a clicking pain that sounds and feels like a pencil snapping . He states all the pain is centralized to his neck and denies any numbness or tingling. Pt reports no pain at rest when sitting up in proper posture, and 10/10 at the worst during a click . Reported Pain Level Pain Score 0: Self Report Assessment PT Clinical Summary Darien presents to therapy today for his initial evaluation with a diagnosis of cervicalgia. Today his active and passive ROM in limited by pin point pain centralized at the R C5 facet joint. His pain was not affected by his shoulder ROM, and he demonstrates good shoulder strength. He declined radiating symptoms as well. He was instructed in a HEP including isometric cervical strengthening and cervical active ROM. It is recommended that he follow up with career transition specialist to address a possible opening restriction. He was not scheduled out for routine visits at this time and will only follow up if needed. Plan of Care Treatment Frequency and follow up in 1 month if needed Duration These treatments will address the objective and functional deficits as defined above. The patient will be advanced safely and appropriately in order for the patient to progress towards his/her prior level of function. Additional exercises will be introduced and as well as a comprehensive home exercise program upon discharge, if needed, ?to ensure carryover of functional gains achieved in the clinic. This treatment plan has been reviewed and agreement upon by the patient.
--- NOTE | 2023-02-23 14:39 | PCPTNOTE ---
Called and LVM for patient asking him to follow up if he felt like he needed more therapy. If we do not hear from with within a week he will be discharged.
--- NOTE | 2023-03-03 08:44 | PTOPDC ---
Assessment and note entered by Barbara Chinchilla, PT, DPT Evaluation Information Assessment Status Discharge - Pt Not Present Diagnosis cervicalgia Onset 4-6 weeks Subjective Information Darien was evaluated on 01/18/23, and did not complete any treatments. He planned on performing the exercises on his own and then following up one month if needed. Called pt one week ago for one month follow up and he did not return call. Assessment PT Clinical Summary He will be discharged at this time. If he needs additional therapy at a later date he will need a new order. Plan of Care PT Services Indicated No
== END 2023-03-03 10:42 | disposition home or self-care (01) ==
LOC: ANHGOSHPT 13:45
PROVIDERS: Visit Provider Nurse Practitioner Family
DX: M54.2 Cervicalgia (principal)
CPT/HCPCS: 97110; 97112; 97161

== ENCOUNTER → 2023-01-21 08:01 | Outpatient (CLI) | payer MEDICARE, SELFPAY ==
--- NOTE | ~2023-01-21 | MR_ITS ---
MRI of the cervical spine Clinical History: Neck pain Technique: Axial T2-weighted and gradient images, and sagittal T1-weighted, T2-weighted, and STIR dorys ges were acquired. Findings: There is no fracture of the cervical spine. 3 mm anterolisthesis of C4 over C5 noted. There is advanced degenerative disc narrowing at C5-C6 and C6-C7. No suspicious bone marrow signal abnorma lity seen. At C2-C3, there is no disc bulge or herniation. There is no spinal canal stenosis or cord compression . There is mild facet arthropathy with mild bilateral neural foraminal narrowing. At C3-C4, there is mild disc osteophyte complex. No luis spinal canal stenosis or cord compression. There is facet arthropathy bilaterally which also contribute to bilateral neural foraminal narrowing. At C4-C5, disc osteophyte complex results in mild flattening the ventral cord. There is facet arthrop athy, left worse than right, which contributes to bilateral neural foraminal narrowing. At C5-C6, there is disc osteophyte complex which results in mild canal stenosis and mild flattening t he ventral cord. There is bilateral neural foraminal narrowing. At C6-C7, disc osteophyte complex results in mild effacement of the ventral thecal sac but no luis c ord compression. There is bilateral neural foraminal narrowing. No abnormal signal seen in the spinal cord. Paravertebral soft tissues are unremarkable. Impression: Moderate degenerative spondylosis, as detailed above. There is mild flattening of the ventral cord at C4-C5 and C5-C6. There is multilevel neural foraminal narrowing, as detailed above. 3 mm anterolisthesis of C4 over C5. Reviewed, dictated and finalized at [facility]. Impression: Moderate degenerative spondylosis, as detailed above. There is mild flattening of the ventral cord at C4-C5 and C5-C6. There is multilevel neural foraminal na rrowing, as detailed above. 3 mm anterolisthesis of C4 over C5.
== END ==
PROVIDERS: PCP Family Medicine; Visit Provider Nurse Practitioner Family
DX: M47.892 Other spondylosis, cervical region (principal)
CPT/HCPCS: 72141

== ENCOUNTER 2023-03-17 10:33 | Observation (INO) | payer MEDICARE, SELFPAY ==
[2023-03-17] VITALS (38 sets, daily range): BP systolic 78–125; BP diastolic 24–69; PULSE 40–75; RESP 7–26; TEMP 36.6–36.9; O2SAT 99–100
--- NOTE | ~2023-03-17 | US_ITS ---
Procedure: Duplex Doppler examination of the bilateral carotids. Indication: Near syncope Technique: Real time, color-flow and pulse wave Doppler examination of the bilateral carotids was performed. Findings: Cai scale ultrasonography of the right neck demonstrated no significant plaque. There was demonstrat ion of normal color-flow and Doppler waveforms within the right common, internal and external carotid arteries. The peak systolic velocities in the right common, internal and external carotid arteries w ere demonstrated to be 197 cm/sec, 79 cm/sec and 129 cm/sec respectively. The right ICA/CCA ratio was 0.5.The proximal right internal carotid artery demonstrates 0% stenosis relative to the normal dista l artery lumen diameter. Cai scale sonography of the left neck demonstrated small plaques at the left carotid bulb and proxim al left internal carotid artery. There was demonstration of normal color-flow and wave forms within t he left common, internal and external carotid arteries. The peak systolic velocities in the left comm on, internal and external carotid arteries were demonstrated to be 145cm/sec, 131 cm/sec and 149 cm/s ec respectively. The left ICA/CCA ratio was 1.1. The proximal left internal carotid artery demonstrat es 0% stenosis relative to the normal distal artery lumen diameter. There was antegrade flow demonstrated in the bilateral vertebral arteries. Impression: No hemodynamically significant stenosis of the bilateral internal carotid arteries. Antegrade flow in the bilateral vertebral arteries. Note: The methodology used is an indirect measurement validated against a direct method (such as the NASCET criteria) that compares diameters at the stenosis to the distal ICA. Reviewed, dictated and finalized at location . Impression: No hemodynamically significant stenosis of the bilateral internal carotid arter ies. Antegrade flow in the bilateral vertebral arteries. Note: The methodology used is an indirect measurement validated against a direct meth od (such as the NASCET criteria) that compares diameters at the stenosis to the distal ICA.
--- NOTE | 2023-03-17 10:34 | ECG_ITS ---
Measurements Intervals [place] Rate: 50 P: 36 MD: 203 QRS: -15 QRSD: 165 T: 105 QT: 470 QTc: 430 Interpretive Statements SINUS BRADYCARDIA WITH SINUS ARRHYTHMIA RIGHT BUNDLE BRANCH BLOCK CANNOT RULE OUT SEPTAL INFARCT, AGE INDETERMINATE BORDERLINE ST-T WAVE ABNORMALITY- LATERAL LEADS ABNORMAL ECG COMPARED TO ECG 10/13/2022 06:43:49 SINUS BRADYCARDIA NOW PRESENT Electronically Signed On 03-17-2023 15:36:02 CDT by Samuel Ortega D.O.
--- NOTE | 2023-03-17 10:53 | PC.NURSE ---
Pt's EMS bag of NSS has finished. Pt is a diabetic and states his sugar this morning was 160
[2023-03-17 10:56] LABS: Basophils Percent Auto 0.6 % (0.2-1.2); Eosinophils Absolute Auto 0.1 K/mm3 (0-0.3); Eosinophils Percent Auto 2.9 % (0-4.4); Hematocrit 27.7 % (42.0-52.0); Hemoglobin 9.1 g/dL (14.0-18.0); Lymphocytes Absolute Auto 1.22 K/mm3 (0.9-3.2); Lymphocytes Percent Auto 38.9 % (18.3-44.2); Mean Corpuscular HGB Conc 32.9 g/dl (32-36); Mean Corpuscular Hemoglobin 37.4 pg (26-34); Monocytes Absolute Auto 0.3 K/mm3 (0.1-0.6); Monocytes Percent Auto 9.2 % (2.6-8.5); Neutrophils Absolute Auto 1.5 K/mm3 (1.3-6.7); Neutrophils Percent Auto 48.4 % (45.5-73.1); Platelet Count Result 168 k/mm3 (150-375); Red Blood Count 2.43 M/mm3 (4.6-6.20); Red Cell Distribution Width 13.3 % (11.5-14.5); White Blood Count 3.1 K/mm3 (4.5-10.0)
--- NOTE | 2023-03-17 10:58 | ED.GENADULT ---
HPI - General Adult General Chief complaint: Nausea/Vomiting/Diarrhea Stated complaint: DIZZY, N/V Time Seen by Provider: 03/17/23 10:33 History of Present Illness HPI narrative: 77-year-old male presented to the emergency department for evaluation after having some low blood pressure. Patient states that he did take his blood pressure medications this morning at 630 and then took Viagra at 730. Patient does have an indwelling Webber catheter. Patient was scheduled to have his Webber catheter exchanged at the urology office today. Patient had coordinated with urology would remove the Webber catheter at home, have intercourse with his ex- and then present to his urology appointment to have the Webber catheter replaced. Patient did take the Viagra, the patient's ex- did not show up, patient did not remove the Webber catheter, the patient did present to the hospital to have a Webber catheter exchange. Patient states during his drive to the ED he had excessive lightheadedness and dizziness. Patient did call EMS and patient was found in the parking lot to be hypotensive and minimally responsive. Upon arrival to the ED patient states he does feel improved. Patient's blood pressure with EMS was in the 70s. Patient did have IV rehydration started and patient's blood pressure was in the 90s systolic after rehydration. Patient states that his blood pressure typically runs 120/80 when he checks it at the gym. Related Data Home Medications Medication Instructions Recorded Confirmed aspirin 81 mg tablet,delayed 81 mg PO DAILY 11/27/20 03/17/23 release (Adult Low Dose Aspirin) cyanocobalamin (vitamin B-12) 5,000 mcg PO DAILY 11/27/20 03/17/23 5,000 mcg capsule ferrous sulfate 325 mg (65 mg 325 mg PO DAILY 11/27/20 03/17/23 iron) tablet (Feosol) multivitamin (Daily Multi-Vitamin 1 tablet PO DAILY 11/27/20 03/17/23 tablet) omega-3 fatty acids 1,000 mg 1,000 mg PO DAILY 11/27/20 10/26/22 capsule (Super [place]-3) insulin detemir U-100 100 unit/mL 5 unit subcut QHS 01/11/22 10/26/22 (3 mL) subcutaneous pen (Levemir FlexTouch U-100 Insulin) ranolazine 500 mg tablet,extended 500 mg PO BID 12/21/22 05/25/23 release,12 hr lisinopril 5 mg tablet 5 mg PO DAILY 12/30/22 03/17/23 carvedilol 3.125 mg tablet (Coreg) 3.125 mg PO TID 03/17/23 03/17/23 isosorbide mononitrate 60 mg 60 mg PO BID 03/17/23 03/17/23 tablet,extended release 24 hr levothyroxine 100 mcg tablet 100 mcg PO DAILY 03/17/23 03/17/23 metformin 1,000 mg tablet 1,000 mg PO BID 03/17/23 03/17/23 Allergies Allergy/AdvReac Type Severity Reaction Status Date / Time Penicillins Allergy Unknown Hives Verified 03/17/23 17:18 Review of Systems Review of Systems: All systems reviewed & are unremarkable except as noted in HPI and below PMFSH Past Medical History Medical History Atrophy of muscle of right thigh Diabetic nephropathy associated with type 2 diabetes mellitus Dysplastic nevi Hearing loss Macrocytic anemia Mixed axonal-demyelinating polyneuropathy Myelodysplasia (myelodysplastic syndrome) Other spondylosis, lumbar region Overweight (BMI 25.0-29.9) Squamous cell carcinoma of scalp Weight loss Surgical History Surgical History History of quadruple bypass Family History Family History Father Cerebrovascular accident Mother due to natural causes Son Diabetes mellitus Social History Social History Smoking status: Never smoker Second hand tobacco smoke exposure: No Alcohol intake: never Substance use: never Substance use type: does not use Lack of Transportation: No Lack of Food: Never True Current Housing: I Have Housing Concerned About Future Housing: No Difficulty Paying Gas/Electric B
[2023-03-17 11:05] LABS: Alanine Aminotransferase 15 U/L (6-50); Albumin Level 3.4 g/dL (3.5-5.1); Alkaline Phosphatase 45 U/L (38-126); Anion Gap 4 mmol/L (8-16); Aspartate Amino Transferase 19 U/L (17-59); Bilirubin,Total 0.4 mg/dL (0.2-1.3); Blood Urea Nitrogen 43 mg/dL (9-20); Calcium 8.2 mg/dL (8.4-10.2); Carbon Dioxide 27 mmol/L (22-30); Chloride 107 mmol/L (98-107); Estimated CRCL calculation 31 ml/min; Estimated Glomerular Filt Rate 42; Glucose 226 mg/dL (65-110); Potassium 5.9 mmol/L (3.4-5.0); Sodium 138 mmol/L (137-145)
[2023-03-17] MEDS: SODIUM CHLORIDE 0.9% IV 1,000 ML 999 ML IV CONT (11:08)
[2023-03-17 11:22] LABS: Appearance Urine Turbid (Clear); Bacteria Urine 4+ /hpf; Bilirubin Urine Negative (Negative); Blood Urine 2+ (Negative); Color Urine Yellow (Yellow); Glucose Urine UA 3+ mg/dL (Negative); Ketones Urine Negative (Negative); Leukocyte Esterase Ur 3+ LEU/UL (Negative); Nitrate Urine Negative (Negative); Protein Urine 2+ mg/dL (Negative); RBC Urine 21-50 /hpf (0-2); Specific Grav Ur 1.021 (1.001-1.035); Squamous Epithelial Cell Urine Occasional /hpf (Few); Urobilinogen Urine 0.2 mg/dL (<2.0); WBC Clumps Urine Present /HPF; WBC Urine >100 /hpf
[2023-03-17 11:27] LABS: Add Urine Microscopic? YES
[2023-03-17] MEDS: CALCIUM GLUC 1,000 MG/NS 50 ML 1,000 MG/50 ML BAG 100 MG IVPB (11:31)
[2023-03-17] MEDS: SODIUM BICARBONATE 8.4% 50 MEQ/50 ML SYRINGE IV PUSH (11:32)
[2023-03-17 11:33] LABS: Anisocytosis 1+ (NORMAL); Ovalocytes 1+ (NORMAL); Platelet Estimate Adequate (Adequate); Schistocytes Rare (NORMAL)
[2023-03-17] MEDS: DEXTROSE 50% 25 GM/50 ML SYRINGE IV PUSH (11:33)
[2023-03-17] MEDS: INSULIN HUMAN REGULAR (*BKC) 100 UNITS/ML 6 UNITS IV PUSH (11:35)
[2023-03-17] MEDS: ALBUTEROL SULFATE NEB 2.5 MG/3 ML INH 10 MG INHALATION (11:36)
[2023-03-17 11:37] LABS: Glucose Point of Care 203 mg/dl (65-105)
[2023-03-17] MEDS: SODIUM ZIRCONIUM CYCLOSILICATE 10 GM POWD.PACK PO (11:37)
[2023-03-17] MEDS: levoFLOXacin 750 MG/D5W 150 ML 750 MG/150 ML BAG 100 MG IVPB (12:10)
[2023-03-17] MEDS: SODIUM CHLORIDE 0.9% IV 1,000 ML 250 ML IV CONT (12:11)
[2023-03-17 13:14] LABS: Glucose Point of Care 197 mg/dl (65-105)
--- NOTE | 2023-03-17 14:40 | PM.IMHP ---
H&P: HPI History of Present Illness Date/Time: 03/17/23 14:15 Chief Complaint: Dizzy and lightheaded. Narrative: This is a very pleasant 77-year-old male with multiple medical problems including history of TIA, coronary artery disease status post 4 vessel bypass in his 50s, heart failure with preserved ejection fraction, insulin-dependent type 2 diabetes mellitus, hypothyroidism, hypertension, myelodysplastic syndrome, and iron deficiency anemia who presented to the emergency department via EMS for evaluation of dizziness and lightheadedness. He felt fine when he went to bed last night and when he got up this morning. He was scheduled to have his Webber catheter changed at the urologist today and he made plans with his to have sexual intercourse this morning after removing his Webber catheter and before going to his appointment. He took a Viagra at about 07:30 however they did not have relations. During his drive to the appointment he began to feel extremely lightheaded, dizzy, and weak. He pulled over immediately and called 911 as he thought he was going to lose consciousness. He denies that he could have taken more medication than prescribed. His glucose this morning was 140. He denies headache, vertigo, focal weakness, paresthesias, chest pain, pleuritic pain, palpitations, shortness of breath, abdominal pain, back pain, and diarrhea. On EMS arrival his systolic blood pressure was in the 70s and he was complaining of nausea and he had several episodes of emesis. At the time my evaluation he reports feeling a lot better and he has no specific complaints. In the ED: Pertinent labs include a WBC count of 3.1, RBC count 2.43, hemoglobin 9.1, hematocrit 27.7%, MCV 114, platelets 168. Sodium 138, potassium 5.9, BUN 43, creatinine 1.60, glucose 226. UA showed 2+ protein, 2+ blood, 3+ leukocyte esterase, 21 to 50 RBC, greater than 100 WBC, and 4+ bacteria. He received an IV fluid bolus and was treated appropriately for hyperkalemia. He was also given a dose of levofloxacin 750 mg IV x1 for what appears to be urinary tract infection. He is being admitted for further treatment and evaluation. Review of Systems Review of Systems: Twelve systems were reviewed and are negative except for as per HPI. [facility] Past Medical History Medical History (Updated 03/17/23 @ 21:49 by Lulu Bello PA-C) Chronic kidney disease Coronary artery disease Diabetic peripheral neuropathy Gastroesophageal reflux disease Hearing loss Hypothyroidism Insulin dependent type 2 diabetes mellitus Iron deficiency anemia Mixed axonal-demyelinating polyneuropathy Myelodysplastic syndrome Osteoarthritis Squamous cell carcinoma of scalp Transient ischemic attack (2019) Vitamin B12 deficiency Weight loss Surgical History Surgical History (Updated 03/17/23 @ 21:45 by Lulu Bello PA-C) History of arthroscopy of right knee History of cardiac catheterization History of colonoscopy with polypectomy History of quadruple bypass Family History Family History Father Cerebrovascular accident Mother due to natural causes Son Diabetes mellitus Social History Social History (Updated 03/17/23 @ 21:45 by Lulu Bello PA-C) Social History: Surrogate medical decision maker: Ingris Guzman. Code status: Full code. Smoking status: Never smoker Second hand tobacco smoke exposure: No Alcohol intake: never Substance use: never Substance use type: does not use Lack of Transportation: No Lack of Food: Never True Current Housing: I Have Housing Concerned About Future Housing: No Difficulty Paying Gas/Electric Bills: No Difficulty Paying for Meds: No Currently Unemployed: No Education: Master's Degree or Higher Difficulty w/ Childcare or Family Care: No Living arrangements: alone Additional living arrangements comments: The patient lives
--- NOTE | 2023-03-17 15:46 | ADMGEN ---
This patient, Darien Guzman, was admitted to 2 Medical Room 260-01. Patient/family oriented to hospital policies and general routines including ID bracelet, bed and alarms, visiting hours, pain management, procedures, bathroom and other care routines, personal items, smoking policy, room service/diet, and visiting hours. Information on how to activate the Rapid Response Team has been discussed. Patient/Family are encouraged to report perceived risks to care and to ask questions if they do not understand what they are told or what they should do.
[2023-03-17 16:08] LABS: Glucose Point of Care 142 mg/dl (65-105)
--- NOTE | 2023-03-17 18:30 | PC.NURSE ---
limited written home med list from pt, reviewed and compared meds to external med history, will be bringing med list tomorrow for confirmation
[2023-03-17 20:20] LABS: Anion Gap 4 mmol/L (8-16); Blood Urea Nitrogen 38 mg/dL (9-20); Calcium 8.7 mg/dL (8.4-10.2); Carbon Dioxide 30 mmol/L (22-30); Chloride 106 mmol/L (98-107); Estimated CRCL calculation 31 ml/min; Estimated Glomerular Filt Rate 42; Glucose 171 mg/dL (65-110); Potassium 4.9 mmol/L (3.4-5.0); Sodium 140 mmol/L (137-145)
[2023-03-17 20:45] LABS: Hemoglobin A1C 8.1 % (<5.7)
[2023-03-17 21:04] LABS: Glucose Point of Care 168 mg/dl (65-105)
[2023-03-17] MEDS: LACTATED RINGERS 1,000 ML 75 ML IV CONT (23:08)
[2023-03-18] VITALS: BP 109/60; PULSE 61; PULSE 79; RESP 14; TEMP 36.6; O2SAT 98
[2023-03-18 04:00] VITALS: PULSE 57
[2023-03-18 05:02] VITALS: BP 129/56; PULSE 86; RESP 14; TEMP 36.7; O2SAT 98
[2023-03-18 05:03] LABS: Hematocrit 29.2 % (42.0-52.0); Hemoglobin 9.7 g/dL (14.0-18.0); Mean Corpuscular HGB Conc 33.2 g/dl (32-36); Mean Corpuscular Hemoglobin 37.7 pg (26-34); Mean Corpuscular Volume 113.6 fl (80-100); Mean Platelet Volume 9.4 fl (7.4-10.4); Platelet Count Result 140 k/mm3 (150-375); Red Blood Count 2.57 M/mm3 (4.6-6.20); Red Cell Distribution Width 13.8 % (11.5-14.5); White Blood Count 3.5 K/mm3 (4.5-10.0)
[2023-03-18 05:15] LABS: Alanine Aminotransferase 14 U/L (6-50); Albumin Level 3.3 g/dL (3.5-5.1); Alkaline Phosphatase 49 U/L (38-126); Anion Gap 3 mmol/L (8-16); Aspartate Amino Transferase 20 U/L (17-59); Bilirubin,Total 0.5 mg/dL (0.2-1.3); Blood Urea Nitrogen 30 mg/dL (9-20); Calcium 8.5 mg/dL (8.4-10.2); Carbon Dioxide 29 mmol/L (22-30); Chloride 106 mmol/L (98-107); Estimated CRCL calculation 39 ml/min; Estimated Glomerular Filt Rate 53; Glucose 121 mg/dL (65-110); Magnesium 1.8 mg/dL (1.6-2.3); Potassium 4.7 mmol/L (3.4-5.0); Sodium 138 mmol/L (137-145)
[2023-03-18 05:54] LABS: Thyroid Stimulating Hormone Reflex 0.766 uIU/mL (0.465-4.68)
[2023-03-18] MEDS: LEVOTHYROXINE SODIUM 100 MCG TABLET PO (06:33)
[2023-03-18 08:00] VITALS: BP 128/61; PULSE 56; PULSE 69; RESP 18; TEMP 36.6; O2SAT 100
--- NOTE | 2023-03-18 08:00 | ECHO_ITS ---
Patient Info Name: Darien Guzman Age: 77 years : 1945 Gender: Male Ht: 66 in Wt: 140 lbs BSA: 1.72 m2 HR: 64 bpm BP: 129 / 54 mmHg Heart Rhythm: Sinus Rhythm Technical Quality: Good Exam Date: 03/18/2023 10:49 AM Exam Location: [facility] Patient Status: Outpatient Admit Date: 03/17/2023 Staff Ordering Physician: Lulu Bello PA-C Digital Composer: FRANCISCO Attending Provider: Gibson Raygoza MD Referring Physician: Eugenia VELA; Exam Type: CA echo doppler color flow Study Info Indications - barady cardia Complete two-dimensional, color flow and Doppler transthoracic echocardiogram is performed. Summary 1. Left ventricular chamber dimension is mildly enlarged. 2. Left ventricular systolic function is normal, estimated at 55%. 3. There is no increased left ventricular wall thickness. 4. Left ventricular septal wall motion is abnormal with septal motion related to bundle branch block. 5. The left ventricular diastolic function is grade I diastolic dysfunction. 6. Right ventricular chamber dimension is mildly enlarged. 7. Right ventricular systolic function is normal. 8. Right atrial chamber dimension is moderately enlarged. 9. There is trace tricuspid valve regurgitation. 10. No pulmonary hypertension, estimated pulmonary arterial systolic pressure is 7 mmHg. Left Ventricle Left ventricular chamber dimension is mildly enlarged. Left ventricular systolic function is normal, estimated at 55%. There is no increased left ventricular wall thickness. Left ventricular septal wall motion is abnormal with septal motion related to bundle branch block. The left ventricular diastolic function is grade I diastolic dysfunction. Right Ventricle Right ventricular chamber dimension is mildly enlarged. Right ventricular systolic function is normal. Left Atria Left atrial chamber dimension is mildly enlarged. Right Atria Right atrial chamber dimension is moderately enlarged. Aortic Valve The aortic valve is trileaflet. There is mild aortic valve sclerosis. There is no aortic valve stenosis. There is no aortic valve regurgitation. Pulmonic Valve The pulmonic valve is normal. There is trace pulmonic regurgitation. Mitral Valve The mitral valve has thickened leaflets. There is trace mitral valve regurgitation. The mitral valve annulus is mildly calcified. Tricuspid Valve The tricuspid valve leaflets are normal. There is trace tricuspid valve regurgitation. No pulmonary hypertension, estimated pulmonary arterial systolic pressure is 7 mmHg. Pericardium/Pleural The pericardium appears normal. There is no pericardial effusion. Inferior Vena Cava Normal inferior vena cava with >50% collapse upon inspiration consistent with normal right atrial pressure, 5 mmHg. Aorta The aortic root size at the sinus of Valsalva is normal. There is mild aortic atherosclerosis. Left Ventricular Outflow Tract Name Value Normal LVOT 2D LVOT Diameter 2.1 cm LVOT Doppler LVOT Peak Gradient 2 mmHg LVOT Mean Gradient 1 mmHg LVOT VTI 13 cm LVOT VTI/AV VTI Ratio 0.7
[2023-03-18 08:33] LABS: Glucose Point of Care 118 mg/dl (65-105)
[2023-03-18] MEDS: FERROUS SULFATE 324 MG TABLET PO (09:07)
[2023-03-18] MEDS: MULTIVITAMINS THERAPEUTIC TAB (*BKC) 1 TABLET PO (09:07)
[2023-03-18] MEDS: CYANOCOBALAMIN 1,000 MCG TABLET 5000 MCG PO (09:07)
[2023-03-18] MEDS: ASPIRIN 81 MG ENTERIC TABLET PO (09:07)
--- NOTE | 2023-03-18 10:13 | PM.DS ---
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 He felt fine when he went to bed last night and when he got up this morning. He was scheduled to have his Webber catheter changed at the urologist today and he made plans with his to have sexual intercourse this morning after removing his Webber catheter and before going to his appointment. He took a Viagra at about 07:30. During his drive to the appointment he began to feel extremely lightheaded, dizzy, and weak. He pulled over immediately and called 911 as he thought he was going to lose consciousness. He denies that he could have taken more medication than prescribed. His glucose this morning was 140. He denies headache, vertigo, focal weakness, paresthesias, chest pain, pleuritic pain, palpitations, shortness of breath, abdominal pain, back pain, and diarrhea. On EMS arrival his systolic blood pressure was in the 70s and he was complaining of nausea and he had several episodes of emesis. In the ED: Pertinent labs include a WBC count of 3.1, RBC count 2.43, hemoglobin 9.1, hematocrit 27.7%, MCV 114, platelets 168. Sodium 138, potassium 5.9, BUN 43, creatinine 1.60, glucose 226. UA showed 2+ protein, 2+ blood, 3+ leukocyte esterase, 21 to 50 RBC, greater than 100 WBC, and 4+ bacteria. He received an IV fluid bolus and was treated appropriately for hyperkalemia. He was also given a dose of levofloxacin 750 mg IV x1 for what appears to be urinary tract infection. He is being admitted for further treatment and evaluation. At this time patient is completely normal. He probably had orthostatic hypotension leading to presyncope. Patient is asymptomatic at this time and is being discharged home Time Spent with Patient Time attestation: Total time spent providing and/or coordinating discharge services: Exam Narrative: General: Nontoxic-appearing male in the semi-Salazar position in bed. Weight: 63.5 kg. BMI: 20.7. HEENT: Normocephalic, atraumatic. PERRL, EOMI. Sclera anicteric. Moist mucous membranes. Neck: Supple. No obvious carotid bruits. Respiratory: Lungs are clear to auscultation bilaterally. Cardiovascular: Bradycardic with S1-S2. Ventricular rate is in the upper 50s at the time of my evaluation. Gastrointestinal: Abdomen is soft, black, nontender, and nondistended with positive bowel sounds. Skin: Warm and dry. No rash or lesions on limited exam. Extremities: No cyanosis, clubbing, or edema. Radial and pedal pulses intact. Neurological: Alert. Cranial nerves 2-12 are grossly intact. No gross focal deficits to casual conversation. Psychiatric: Pleasant and cooperative with normal mood and affect. Judgment and insight intact. He is in good spirits. DS: Data Data Completed and Pending Labs on day of discharge: Labs from last 24 hours 03/18/23 03/18/23 03/17/23 08:31 04:49 20:31 WBC 3.5 L RBC 2.57 L Hgb 9.7
[2023-03-18 12:17] LABS: Glucose Point of Care 142 mg/dl (65-105)
== END 2023-03-18 12:45 | disposition home or self-care (01) ==
LOC: ANHED 11:26 → ANHIMU 14:35 → ANH2MED 15:29
PROVIDERS: Physician Assistant; Admitting Provider Hospitalist; Emergency Provider Emergency Medicine; PCP Family Medicine; Visit Provider Hospitalist
DX: I95.9 Hypotension, unspecified (principal); R55 Syncope and collapse; I25.10 Atherosclerotic heart disease of native coronary artery without angina pectoris; Z95.1 Presence of aortocoronary bypass graft; D50.9 Iron deficiency anemia, unspecified; E11.21 Type 2 diabetes mellitus with diabetic nephropathy; R42 Dizziness and giddiness; N39.0 Urinary tract infection, site not specified; B96.1 Klebsiella pneumoniae [K. pneumoniae] as the cause of diseases classified elsewhere; Z96.0 Presence of urogenital implants; D46.9 Myelodysplastic syndrome, unspecified; G61.81 Chronic inflammatory demyelinating polyneuritis; I50.30 Unspecified diastolic (congestive) heart failure; M47.896 Other spondylosis, lumbar region; R79.89 Other specified abnormal findings of blood chemistry; R94.31 Abnormal electrocardiogram [ECG] [EKG]; E66.3 Overweight; E87.5 Hyperkalemia; Z68.21 Body mass index [BMI] 21.0-21.9, adult; R63.4 Abnormal weight loss; Z86.73 Personal history of transient ischemic attack (TIA), and cerebral infarction without residual deficits; Z79.82 Long term (current) use of aspirin; Z79.4 Long term (current) use of insulin; Z79.84 Long term (current) use of oral hypoglycemic drugs; Z79.899 Other long term (current) drug therapy
CPT/HCPCS: 36415; 51702; 80048; 80053; 81001; 82948; 83036; 83735; 84443; 85025; 85027; 87040; 87077; 87086; 87186; 93005; 93306; 93880; 94640; 96361; 96365; 96367; 96375; 99285; A9270; G0378; J0612; J1815; J1956; J7030; J7120

== ENCOUNTER 2023-06-01 07:56 | Outpatient (CLI) | payer MEDICARE, SELFPAY ==
[2023-06-01 18:21] LABS: Basophils Percent Auto 0.6 % (0.2-1.2); Eosinophils Absolute Auto 0.1 K/mm3 (0-0.3); Hematocrit 33.6 % (42.0-52.0); Hemoglobin 11.2 g/dL (14.0-18.0); Lymphocytes Absolute Auto 1.31 K/mm3 (0.9-3.2); Mean Corpuscular HGB Conc 33.3 g/dl (32-36); Mean Corpuscular Hemoglobin 37.5 pg (26-34); Mean Corpuscular Volume 112.4 fl (80-100); Mean Platelet Volume 10.3 fl (7.4-10.4); Monocytes Absolute Auto 0.4 K/mm3 (0.1-0.6); Monocytes Percent Auto 11.3 % (2.6-8.5); Neutrophils Absolute Auto 1.6 K/mm3 (1.3-6.7); Neutrophils Percent Auto 46.1 % (45.5-73.1); Platelet Count Result 188 k/mm3 (150-375); Red Blood Count 2.99 M/mm3 (4.6-6.20); Red Cell Distribution Width 13.5 % (11.5-14.5); White Blood Count 3.4 K/mm3 (4.5-10.0)
[2023-06-01 18:54] LABS: Alanine Aminotransferase 18 U/L (6-50); Albumin Level 4.2 g/dL (3.5-5.1); Alkaline Phosphatase 69 U/L (38-126); Anion Gap 6 mmol/L (8-16); Aspartate Amino Transferase 24 U/L (17-59); Bilirubin,Total 0.5 mg/dL (0.2-1.3); Blood Urea Nitrogen 31 mg/dL (9-20); Calcium 9.4 mg/dL (8.4-10.2); Carbon Dioxide 27 mmol/L (22-30); Chloride 102 mmol/L (98-107); Cholesterol 172 mg/dL (0-200); Estimated Glomerular Filt Rate 42; Glucose 187 mg/dL (65-110); HDL Direct 46 mg/dL; Potassium 5.4 mmol/L (3.4-5.0); Sodium 135 mmol/L (137-145); Triglycerides 71 mg/dL (<150)
[2023-06-01 18:56] LABS: Platelet Estimate Adequate (Adequate)
[2023-06-01 18:57] LABS: Macrocytosis 1+ (NORMAL); Schistocytes None Seen (NORMAL)
[2023-06-01 19:05] LABS: LDL Cholesterol Direct 103 mg/dL
[2023-06-01 19:18] LABS: Hemoglobin A1C 8.6 % (<5.7)
== END 2023-06-01 07:57 | disposition home or self-care (01) ==
PROVIDERS: PCP Family Medicine; Visit Provider Family Medicine
DX: E78.5 Hyperlipidemia, unspecified (principal); E11.21 Type 2 diabetes mellitus with diabetic nephropathy; I25.10 Atherosclerotic heart disease of native coronary artery without angina pectoris; E03.9 Hypothyroidism, unspecified; D46.9 Myelodysplastic syndrome, unspecified
CPT/HCPCS: 36415; 80053; 80061; 83036; 84443; 85025

== ENCOUNTER 2023-07-11 09:45 | Outpatient (CLI) | payer MEDICARE, SELFPAY ==
[2023-07-11 19:16] LABS: Basophils Percent Auto 0.9 % (0.2-1.2); Eosinophils Absolute Auto 0.1 K/mm3 (0-0.3); Eosinophils Percent Auto 2.8 % (0-4.4); Hematocrit 33.4 % (42.0-52.0); Immature Granulocyte Absolute 0.01 K/mm3 (0.00-0.031); Immature Granulocyte Percent A 0.3 % (0-0.5); Lymphocytes Absolute Auto 1.35 K/mm3 (0.9-3.2); Lymphocytes Percent Auto 42.7 % (18.3-44.2); Mean Corpuscular HGB Conc 32.9 g/dl (32-36); Mean Corpuscular Hemoglobin 38.3 pg (26-34); Mean Corpuscular Volume 116.4 fl (80-100); Mean Platelet Volume 10.1 fl (7.4-10.4); Monocytes Absolute Auto 0.3 K/mm3 (0.1-0.6); Monocytes Percent Auto 9.2 % (2.6-8.5); Neutrophils Absolute Auto 1.4 K/mm3 (1.3-6.7); Neutrophils Percent Auto 44.1 % (45.5-73.1); Platelet Count Result 205 k/mm3 (150-375); Red Blood Count 2.87 M/mm3 (4.6-6.20); Red Cell Distribution Width 14.2 % (11.5-14.5); White Blood Count 3.2 K/mm3 (4.5-10.0)
[2023-07-11 19:50] LABS: Platelet Estimate Adequate (Adequate); Schistocytes None Seen (NORMAL)
[2023-07-11 19:51] LABS: Anisocytosis 1+ (NORMAL); Macrocytosis 1+ (NORMAL)
[2023-07-11 20:22] LABS: Alanine Aminotransferase 19 U/L (6-50); Albumin Level 4.4 g/dL (3.5-5.1); Alkaline Phosphatase 50 U/L (38-126); Anion Gap 7 mmol/L (8-16); Aspartate Amino Transferase 37 U/L (17-59); Bilirubin,Total 0.5 mg/dL (0.2-1.3); Blood Urea Nitrogen 45 mg/dL (9-20); Calcium 9.5 mg/dL (8.4-10.2); Carbon Dioxide 27 mmol/L (22-30); Chloride 105 mmol/L (98-107); Cholesterol 179 mg/dL (0-200); Estimated Glomerular Filt Rate 49; Glucose 124 mg/dL (65-110); HDL Direct 39 mg/dL; Potassium 4.7 mmol/L (3.4-5.0); Sodium 139 mmol/L (137-145); Triglycerides 94 mg/dL (<150)
[2023-07-11 20:33] LABS: LDL Cholesterol Direct 107 mg/dL
[2023-07-11 20:34] LABS: Creatinine Urine 64.4 mg/dL
[2023-07-11 20:35] LABS: Hemoglobin A1C 7.6 % (<5.7)
[2023-07-11 20:38] LABS: MALB Creatinine Ratio 224.5 mg/g (0-30); Microalbumin Urine Random 144.6 mg/L (0-16.7)
== END 2023-07-11 09:46 | disposition home or self-care (01) ==
PROVIDERS: PCP Family Medicine; Visit Provider Family Medicine
DX: E11.9 Type 2 diabetes mellitus without complications (principal); M87.052 Idiopathic aseptic necrosis of left femur; Z01.818 Encounter for other preprocedural examination
CPT/HCPCS: 36415; 80053; 80061; 82043; 83036; 85025

== ENCOUNTER 2023-08-30 09:59 | Outpatient (CLI) | payer MEDICARE, SELFPAY ==
[2023-08-30 19:53] LABS: Alanine Aminotransferase 13 U/L (6-50); Albumin Level 4.1 g/dL (3.5-5.1); Alkaline Phosphatase 74 U/L (38-126); Anion Gap 7 mmol/L (8-16); Aspartate Amino Transferase 19 U/L (17-59); Bilirubin,Total 0.6 mg/dL (0.2-1.3); Blood Urea Nitrogen 31 mg/dL (9-20); Calcium 9.5 mg/dL (8.4-10.2); Carbon Dioxide 28 mmol/L (22-30); Chloride 105 mmol/L (98-107); Cholesterol 147 mg/dL (0-200); Estimated Glomerular Filt Rate 53; Glucose 145 mg/dL (65-110); HDL Direct 35 mg/dL; Sodium 140 mmol/L (137-145); Triglycerides 115 mg/dL (<150)
[2023-08-30 20:04] LABS: LDL Cholesterol Direct 92 mg/dL
[2023-08-30 20:49] LABS: Basophils Percent Auto 0.9 % (0.2-1.2); Eosinophils Absolute Auto 0.1 K/mm3 (0-0.3); Eosinophils Percent Auto 2.6 % (0-4.4); Hematocrit 31.6 % (42.0-52.0); Hemoglobin 10.2 g/dL (14.0-18.0); Immature Granulocyte Absolute 0.01 K/mm3 (0.00-0.031); Immature Granulocyte Percent A 0.3 % (0-0.5); Lymphocytes Absolute Auto 1.33 K/mm3 (0.9-3.2); Lymphocytes Percent Auto 38.6 % (18.3-44.2); Mean Corpuscular HGB Conc 32.3 g/dl (32-36); Mean Corpuscular Hemoglobin 37.5 pg (26-34); Mean Corpuscular Volume 116.2 fl (80-100); Monocytes Absolute Auto 0.4 K/mm3 (0.1-0.6); Neutrophils Absolute Auto 1.6 K/mm3 (1.3-6.7); Neutrophils Percent Auto 46.6 % (45.5-73.1); Platelet Count Result 291 k/mm3 (150-375); Red Blood Count 2.72 M/mm3 (4.6-6.20); Red Cell Distribution Width 14.6 % (11.5-14.5); White Blood Count 3.5 K/mm3 (4.5-10.0)
[2023-08-30 21:03] LABS: Platelet Estimate Adequate (Adequate)
[2023-08-30 21:04] LABS: Macrocytosis 1+ (NORMAL); Ovalocytes 1+ (NORMAL); Schistocytes None Seen (NORMAL)
[2023-08-30 21:17] LABS: Hemoglobin A1C 7.2 % (<5.7)
== END 2023-08-30 10:00 | disposition home or self-care (01) ==
LOC: ANHGOSHLAB 10:01
PROVIDERS: PCP Family Medicine; Visit Provider Family Medicine
DX: E78.5 Hyperlipidemia, unspecified (principal); D46.9 Myelodysplastic syndrome, unspecified; E03.9 Hypothyroidism, unspecified; E11.9 Type 2 diabetes mellitus without complications; E87.5 Hyperkalemia; N17.9 Acute kidney failure, unspecified; N18.9 Chronic kidney disease, unspecified; Z79.4 Long term (current) use of insulin
CPT/HCPCS: 36415; 80053; 80061; 83036; 84443; 85025; G0108

== ENCOUNTER 2023-09-27 08:54 | Outpatient (CLI) | payer MEDICARE, SELFPAY | END 2023-09-27 08:55 | disposition home or self-care (01) | LOC: ANHAUDIO 08:55 | PROVIDERS: PCP Family Medicine; Visit Provider Nurse Practitioner Family | DX: H91.90 Unspecified hearing loss, unspecified ear (principal) | CPT/HCPCS: 92557; 92567 ==

== ENCOUNTER 2023-09-29 09:30 | Outpatient (RCR) | payer MEDICARE, SELFPAY | END 2023-11-15 12:48 | disposition home or self-care (01) | LOC: ANHDMC 09:30 | PROVIDERS: PCP Family Medicine; Visit Provider Nurse Practitioner Family | DX: E11.65 Type 2 diabetes mellitus with hyperglycemia (principal); Z71.89 Other specified counseling | CPT/HCPCS: G0108 ==

== ENCOUNTER 2023-10-11 08:30 | Outpatient (RCR) | payer MEDICARE, SELFPAY ==
--- NOTE | 2023-09-22 09:57 | OPREHPOC ---
Outpatient Therapy Plan of Care This is a Multidisciplinary Plan of Care that may contain components documented by all disciplines (PT, OT, and ST.) PT Problem 1 PT Problem #1 Knowledge Deficit PT Goal 1 Goal 1* indep with HEP PT Problem 2 PT Problem #2 Pain PT Goal 1 Goal 1* pt report pain at worst rating of 2/10 with increased activity level 2* pt report walking/standing tolerance of 45 minutes PT Problem 3 PT Problem #3 Impaired Range of Motion PT Goal 1 Goal increase flexibility of L LE: in supine: 1* hip extension 0' 2* knee extension 0' 3* hip flexion 100' PT Problem 4 PT Problem #4 Impaired Strength PT Goal 1 Goal increase strength of L LE, to improve mobility and gait skills: 1* pt perform supine exercises x 20 reps 2* transfer supine/sit without laboring and good speed 3* sit/stand from 18 seat without use of UE x 5 reps 4* single leg standing 10 seconds with good balance PT Problem 5 PT Problem #5 Impaired Functional Mobil PT Goal 1 Goal 1* TUG 11 seconds 2* 5 reps sit/stand time of 19 seconds 3* 2 minute walking test distance of 420' 4* pt report no issues getting in/out car 5* pt report NO issues getting up/down from toliet
--- NOTE | 2023-09-22 09:57 | PTOPEVAL1 ---
Assessment and note entered by Gisela Messer, PT Evaluation Information Assessment Status Evaluation Diagnosis L femur necrosis/ s/p L THR Jul Onset 08-02-23 Subjective Information had [facility] services; doing HEP-supine: heel slide, hip abduction,quad set; standing side step R/L, small squat, hip abduction--10 reps; used wheeled walker then cane- stopped using cane about few weeks ago; no falls ACTIVITY: live alone; stairs with one rail, doing OK with them but slow; problems tying L shoe, to reach shoe laces- wear slip on shoes; returned to driving, cooking, cleaning; still using grabber to reach things from the floor; some problems getting in/out car and bed; still have raised toliet seat; prior to hip surgery--golf and played pickle ball; want to get back to them. per pt- no restrictions from dr; activity as tolerated. GOAL: improve balance, leg strength, Reported Pain Level Pain Score Self Report Additional Pain Score Comments pain range in the past week -12/31; lateral hip pain reported walking/standing tolerance: 20 minutes decrease pain:sit/rest no longer taking any pain meds; no longer using ice- instruct on PRN use Assessment PT Clinical Summary Darien is s/p L THR in July. He lives alone and no longer uses an assistive device. Reports decreased balance and strength, with difficulty getting in/out car, stand up from toliet and walking tolerance. Active prior to THR and wants to get back to [employer] and pickle ball. Is planning to go to [place] after . With the evaluation, he has decreased hip and knee extension ROM and decreased strength of L LE; 5 reps sit/stand time of 29 sec with use of 1 UE; TUG 16 seconds and 2 minute walking test distance of 310'. He has a HEP from [facility] services, but only performing 10 reps; SKilled PT services are indicated to increase LE strength, gait and balance skills, to improve mobility, activity leve
--- NOTE | 2023-10-13 07:41 | PTOPDC ---
Assessment and note entered by Sagar Palma, PT Discharge Information Assessment Status Discharge - Pt Not Present Diagnosis L femur necrosis/ s/p L THR Jul Onset 08-02-23 Subjective Information Patient contacted clinic stating that he was unable to make his progress note visit. Unable to reschedule because he is going out of state for a while. Reports that he is doing very well and denies any issues. Would like to be discharged from skilled therapy at this time. Reported Pain Level Pain Score 1: Self Report Additional Pain Score Comments Pt's neck pain 05/02 Assessment PT Clinical Summary Patient will be discharged from therapy at this time per request. Travelling out of state for a while. Please refer to last treatment note for discharge status. Plan of Care PT Services Indicated D/C to HEP
== END 2023-10-13 13:47 | disposition home or self-care (01) ==
LOC: ANHPT 08:30
PROVIDERS: PCP Family Medicine; Visit Provider Family Medicine
DX: M87.052 Idiopathic aseptic necrosis of left femur (principal)
CPT/HCPCS: 97110; 97112; 97116; 97161; 97530

== ENCOUNTER 2023-12-22 08:24 | Outpatient (CLI) | payer MEDICARE, SELFPAY ==
[2023-12-22 12:42] LABS: Alanine Aminotransferase 13 U/L (6-50); Albumin Level 4.1 g/dL (3.5-5.1); Alkaline Phosphatase 61 U/L (38-126); Anion Gap 6 mmol/L (8-16); Aspartate Amino Transferase 29 U/L (17-59); Bilirubin,Total 0.4 mg/dL (0.2-1.3); Blood Urea Nitrogen 31 mg/dL (9-20); Calcium 9.2 mg/dL (8.4-10.2); Carbon Dioxide 27 mmol/L (22-30); Chloride 105 mmol/L (98-107); Cholesterol 145 mg/dL (0-200); Estimated Glomerular Filt Rate 58; Glucose 156 mg/dL (65-110); HDL Direct 37 mg/dL; Potassium 4.6 mmol/L (3.4-5.0); Sodium 138 mmol/L (137-145); Triglycerides 82 mg/dL (<150)
[2023-12-22 12:53] LABS: LDL Cholesterol Direct 92 mg/dL
[2023-12-22 13:03] LABS: Hemoglobin A1C 7.5 % (<5.7)
[2023-12-22 13:25] LABS: Creatinine Urine 71.5 mg/dL
[2023-12-22 13:29] LABS: MALB Creatinine Ratio 198.3 mg/g (0-30); Microalbumin Urine Random 141.8 mg/L (0-16.7)
== END 2023-12-22 08:25 | disposition home or self-care (01) ==
LOC: ANHGOSHLAB 08:26
PROVIDERS: PCP Family Medicine; Visit Provider Family Medicine
DX: E03.9 Hypothyroidism, unspecified (principal); E11.9 Type 2 diabetes mellitus without complications
CPT/HCPCS: 36415; 80053; 80061; 82043; 83036; 84443

== ENCOUNTER 2024-01-02 14:43 | Outpatient (CLI) | payer MEDICARE, SELFPAY ==
--- NOTE | ~2024-01-02 | XR_ITS ---
EXAMINATION: XR hand LT 2V DATE: 01/02/2024 14:56 INDICATION: Dropped heavy piece of wood on the hand 2 weeks prior TECHNIQUE: Posteroanterior and lateral views of the left hand were obtained. COMPARISON: None. FINDINGS: Bone alignment is normal. No acute fracture. Suggestion of an old healed fracture deformity at the ba se of the left middle phalanx with severe secondary osteoarthritis at the fifth proximal interphalang eal joint. Additional old healed fracture deformity at the fifth distal phalanx. Additional severe os teoarthritis at the distal radioulnar and first carpometacarpal joints. Moderate osteoarthritis at th e first and second metacarpophalangeal and first interphalangeal and second, third and fifth distal i nterphalangeal joints. Mild osteoarthritis at many of the remaining joints in the left hand. Multiple surgical clips along the radial/volar aspect of the wrist and distal forearm. Vascular calcification along the ulnar artery. IMPRESSION: 1. Old healed fracture deformities at the left fifth middle and distal phalanges. No acute osseous at the left hand or wrist abnormality. 2. 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 Reviewed, dictated and finalized at location B. IMPRESSION: 1. Old healed fracture deformities at the left fifth middle and distal phalange s. No acute osseous at the left hand or wrist abnormality. 2. 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
== END 2024-01-02 14:44 ==
PROVIDERS: PCP Family Medicine; Visit Provider Family Medicine
DX: M19.042 Primary osteoarthritis, left hand (principal); M19.032 Primary osteoarthritis, left wrist
CPT/HCPCS: 73120

== ENCOUNTER 2024-01-12 02:59 | Day surgery (SDC) | payer MEDICARE, SELFPAY ==
[2024-01-09 10:59] VITALS: BMI 24.5
--- NOTE | 2024-01-10 09:36 | SUR.PREOP ---
Patient called regarding upcoming procedure. Voicemail left regarding appointment times.
[2024-01-12 09:37] VITALS: BP 149/75; PULSE 62; RESP 16; TEMP 36.1; O2SAT 100
[2024-01-12 09:41] LABS: Glucose Point of Care 81 mg/dl (65-105)
[2024-01-12] MEDS: LACTATED RINGERS 1,000 ML 150 ML IV CONT (10:00)
--- NOTE | 2024-01-12 10:22 | WPDANESEPPF ---
Anes - Initial Pre Proc Eval Procedure: Operation Date: 01/12/24 11:00 Proposed Procedures p Esophagogastroduodenoscopy EGD - Hector Ryan MD Date/Time: 01/12/24 10:22 Surgeon: Hector Ryan MD Pre Op Diagnosis: Eosinophilic esophagitis and Dyskinesia of esophag Patient Data Age: 78 Gender: M Height: 1.65 m Weight: 66.9 kg Last Vital Signs Temp 96.9 F L 01/12/24 09:37 Pulse 62 01/12/24 09:37 Resp 16 01/12/24 09:37 BP 149/75 H 01/12/24 09:37 Pulse Ox 100 01/12/24 09:37 O2 Del Method Room Air 01/12/24 09:37 Allergies Allergy/AdvReac Type Severity Reaction Status Date / Time Penicillins Allergy Unknown Hives Verified 01/12/24 09:37 Home Medications Medication Instructions Recorded Confirmed Type aspirin 81 mg tablet,delayed 81 mg PO DAILY 11/27/20 01/09/24 History release (Adult Low Dose Aspirin) ferrous sulfate 325 mg (65 mg 325 mg PO DAILY 11/27/20 01/09/24 History iron) tablet (Feosol) multivitamin (Daily Multi-Vitamin 1 tablet PO DAILY 11/27/20 01/09/24 History tablet) omega-3 fatty acids 1,000 mg 1,000 mg PO DAILY 11/27/20 01/09/24 History capsule (Super [place]-3) ranolazine 500 mg tablet,extended 500 mg PO BID 10/13/22 01/09/24 History release,12 hr sacubitril 24 mg-valsartan 26 mg 1 tablet PO BID #30 tabs 11/15/22 01/09/24 Rx tablet (Entresto) blood sugar diagnostic (OneTouch #200 ea 01/05/23 01/09/24 Rx Verio test strips) nitroglycerin 0.4 mg sublingual 0.4 mg sublingual Q5M PRN chest 01/07/23 01/09/24 Rx tablet pain #25 tabs carvedilol 3.125 mg tablet (Coreg) 3.125 mg PO TID 03/17/23 01/12/24 History levothyroxine 100 mcg tablet 100 mcg PO DAILY #90 tabs 08/05/23 01/09/24 Rx flash glucose scanning reader #1 ea 08/31/23 01/09/24 Rx (FreeStyle Drea 2 [place]) flash glucose sensor (FreeStyle #13 ea 08/31/23 01/09/24 Rx Drea 2 Sensor kit) empagliflozin 5 mg-linagliptin 2.5 2 tablet PO QAM #180 ea 09/26/23 01/09/24 Rx mg-metformn ER 1,000 mg tablet,24hr (Trijardy XR) insulin detemir U-100 100 unit/mL 11 unit subcut QHS 09/26/23 01/09/24 History (3 mL) subcutaneous pen isosorbide mononitrate 60 mg 60 mg PO BID #180 tabs 12/26/23 01/09/24 Rx tablet,extended release 24 hr selenium sulfide 2.5 % lotion 1 applic topical 2XW 2 weeks #120 12/26/23 01/09/24 Rx mL doxycycline monohydrate 100 mg 100 mg PO BID #20 caps 01/03/24 01/09/24 Rx capsule prednisone 20 mg tablet 20 mg PO DAILY #7 tabs 01/03/24 01/09/24 Rx Laboratory Tests 01/12/24 09:36 POC Capillary Glucose 81 mg/dl (65-105) Patient hx anesthesia problems: none Family hx anesthesia problems: none Results Review: All pre-operative results and documents have been reviewed as part of the pre-operative evaluation. 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 Chronic kidney disease Coronary artery disease Diabetic peripheral neuropathy Gastroesophageal reflux disease Hearing loss Hypothyroidism Insulin dependent type 2 diabetes mellitus Iron deficiency anemia Mixed axonal-demyelinating polyneuropathy Myelodysplastic syndrome Osteoarthritis Squamous cell carcinoma of scalp Transient ischemic attack (2019) Vitamin B12 deficiency Weight loss Surgical History Surgical History History of arthroscopy of right knee History of cardiac catheterization History of colonoscopy with polypectomy History of left hip replacement History of quadruple bypass Family History Family History Father Cerebrovascular accident Mother due to natural causes Son Diabetes mellitus Social History Social History Social History: Surrogate medical d
--- NOTE | 2024-01-12 10:43 | PM.HPGS ---
History of Present Illness History of Present Illness Consent: Risks, benefits, and alternatives have been discussed and questions answered. Patient agrees to proceed with procedure. Chief complaint: esophageal spasm Narrative: Darien Guzman is a 78 year old male with almost a year of intermittent upper abdominal discomfort after eating that can last up to 2-3 hours and gets better after throwing up, this can happen 2-3 times a month. Never had EGD. 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 Chronic kidney disease Coronary artery disease Diabetic peripheral neuropathy Epigastric pain Gastroesophageal reflux disease Hearing loss Hypothyroidism Insulin dependent type 2 diabetes mellitus Iron deficiency anemia Mixed axonal-demyelinating polyneuropathy Myelodysplastic syndrome Osteoarthritis Squamous cell carcinoma of scalp Transient ischemic attack (2019) Vitamin B12 deficiency Weight loss Surgical History Surgical History History of arthroscopy of right knee History of cardiac catheterization History of colonoscopy with polypectomy History of left hip replacement History of quadruple bypass Family History Family History Father Cerebrovascular accident Mother due to natural causes Son Diabetes mellitus Social History Social History Social History: Surrogate medical decision maker: Ingris Guzman. Code status: Full code. Smoking status: Never smoker Second hand tobacco smoke exposure: No Alcohol intake: current Drinks per week: 1 Substance use: never Substance use type: does not use Lack of Transportation: No Lack of Food: Never True Current Housing: I Have Housing Concerned About Future Housing: No Difficulty Paying Gas/Electric Bills: No Difficulty Paying for Meds: No Currently Unemployed: No Education: Master's Degree or Higher Difficulty w/ Childcare or Family Care: No Living arrangements: with family Additional living arrangements comments: The patient lives in his own home in [place]. He and his are . 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: No Meds Home Medications and Allergies Home Medications Medication Instructions Recorded Confirmed Type aspirin 81 mg tablet,delayed 81 mg PO DAILY 11/27/20 01/09/24 History release (Adult Low Dose Aspirin) ferrous sulfate 325 mg (65 mg 325 mg PO DAILY 11/27/20 01/09/24 History iron) tablet (Feosol) multivitamin (Daily Multi-Vitamin 1 tablet PO DAILY 11/27/20 01/09/24 History tablet) omega-3 fatty acids 1,000 mg 1,000 mg PO DAILY 11/27/20 01/09/24 History capsule (Super [place]-3) ranolazine 500 mg tablet,extended 500 mg PO BID 10/13/22 01/09/24 History release,12 hr sacubitril 24 mg-valsartan 26 mg 1 tablet PO BID #30 tabs 11/15/22 01/09/24 Rx tablet (Entresto) blood sugar diagnostic (OneTouch #200 ea 01/05/23 01/09/24 Rx Verio test strips) nitroglycerin 0.4 mg sublingual 0.4 mg sublingual Q5M PRN chest 01/07/23 01/09/24 Rx tablet pain #25 tabs carvedilol 3.125 mg tablet (Coreg) 3.125 mg PO TID 03/17/23 01/12/24 History levothyroxine 100 mcg tablet 100 mcg PO DAILY #90 tabs 08/05/23 01/09/24 Rx flash glucose scanning reader #1 ea 08/31/23 01/09/24 Rx (FreeStyle Drea 2 [place]) flash glucose sensor (FreeStyle #13 ea 08/31/23 01/09/24 Rx Drea 2 Sensor kit) empagliflozin 5 mg-linagliptin 2.5 2 tablet PO QAM #180 ea 09/26/23 01/09/24 Rx mg-metformn ER 1,000 mg tablet,24hr (Tom
[2024-01-12 10:56] VITALS: BP 85/53; PULSE 62; RESP 26; O2SAT 100
[2024-01-12 11:06] VITALS: BP 86/53; PULSE 62; RESP 16; O2SAT 100
[2024-01-12 11:16] VITALS: BP 139/76; PULSE 61; RESP 28; O2SAT 100
[2024-01-12 11:17] LABS: Glucose Point of Care 93 mg/dl (65-105)
== END 2024-01-12 11:37 | disposition home or self-care (01) ==
PROVIDERS: PCP Family Medicine; Visit Provider Internal Medicine Gastroenterology
PROC: 0DJ08ZZ Inspection of Upper Intestinal Tract, Via Natural or Artificial Opening Endoscopic (ICD-10-PCS; CPT 43235; principal; 2024-01-12 11:00)
DX: K29.70 Gastritis, unspecified, without bleeding (principal); E11.22 Type 2 diabetes mellitus with diabetic chronic kidney disease; N18.30 Chronic kidney disease, stage 3 unspecified; G61.81 Chronic inflammatory demyelinating polyneuritis; E03.9 Hypothyroidism, unspecified; D50.9 Iron deficiency anemia, unspecified; K21.9 Gastro-esophageal reflux disease without esophagitis; E53.8 Deficiency of other specified B group vitamins; D46.9 Myelodysplastic syndrome, unspecified; Z86.73 Personal history of transient ischemic attack (TIA), and cerebral infarction without residual deficits; Z79.84 Long term (current) use of oral hypoglycemic drugs; Z79.82 Long term (current) use of aspirin; Z79.4 Long term (current) use of insulin; Z95.1 Presence of aortocoronary bypass graft
CPT/HCPCS: 43239; 82948; 88305; J2704; J7120

== ENCOUNTER 2024-01-30 08:02 | Outpatient (CLI) | payer MEDICARE, SELFPAY ==
--- NOTE | ~2024-01-30 | US_ITS ---
Abdominal Sonogram: Real-time sonographic imaging of the abdomen was performed. Clinical History: Epigastric pain Findings: The liver appears normal with no evidence of mass lesion or bile duct dilatation. Main por milly vein demonstrates normal direction of flow. The spleen is normal in size, with calcified granulom as. The gallbladder is well distended, without definite stone. Questionable focal gallbladder wall p olyp or wall calcification. The common bile duct measures 5 mm. The visualized pancreas, aorta, and IVC are unremarkable. The right kidney measures 10.2 cm in length and the left kidney measures 11.0 cm. There is no hydronephrosis or renal calculus. Impression: Questionable focal gallbladder wall polyp or wall calcification. No other significant findings. Reviewed, dictated and finalized at [facility]. Impression: Questionable focal gallbladder wall polyp or wall calcification. No other significant findings.
== END 2024-01-30 08:03 | disposition home or self-care (01) ==
LOC: ANHIMG 08:10
PROVIDERS: PCP Family Medicine; Visit Provider Internal Medicine Gastroenterology
DX: R10.13 Epigastric pain (principal); R11.2 Nausea with vomiting, unspecified
CPT/HCPCS: 76700

== ENCOUNTER 2024-01-30 12:42 | Outpatient (CLI) | payer MEDICARE, SELFPAY ==
--- NOTE | ~2024-01-30 | MR_ITS ---
MRI of the left hand CLINICAL HISTORY: Contusion TECHNIQUE: Axial T1-weighted and T2 fat-sat images, coronal T1-weighted and T2 fat-sat images, and sa gittal T1-weighted and T2 fat-sat images were acquired. FINDINGS: There is severe degenerative change of the first carpal metacarpal joint, with mild reactiv e marrow edema and perirectal change. Otherwise, remaining bone marrow signals throughout the hand ar e unremarkable. No other bone marrow edema identified. No fracture identified. Remaining joint spaces are preserved. No significant joint effusion. There is diffuse dorsal subcutaneous soft tissue edema in the hand. There is extensive edematous lundberg ge of the abductor pollicis brevis muscle, compatible with muscle strain. Remaining musculature appea rs intact. No abscess or soft tissue mass evident. X extensor tendons appear intact. IMPRESSION: Severe grade 1 strain of the abductor pollicis brevis muscle. Extensive dorsal subcutaneous soft tissue edema. Correlate for cellulitis. Severe degenerative change at the first CMC joint. Reviewed, dictated and finalized at [facility].
== END 2024-01-30 12:43 ==
LOC: GOSHIMG 12:44
PROVIDERS: PCP Family Medicine; Visit Provider Nurse Practitioner Family
DX: S60.222A Contusion of left hand, initial encounter (principal); X58.XXXA Exposure to other specified factors, initial encounter; M19.042 Primary osteoarthritis, left hand
CPT/HCPCS: 73218

== ENCOUNTER 2024-02-01 15:22 | Emergency (ER) | payer MEDICARE, SELFPAY ==
[2024-02-01 15:23] VITALS: BP 146/64; PULSE 79; RESP 16; TEMP 36.1; O2SAT 100
--- NOTE | 2024-02-01 16:09 | ED.GENADULT ---
HPI - General Adult General Chief complaint: Unspecified <Jose Childers APRN - Last Filed: 02/01/24 16:22> Stated complaint: left hand swelling <Jose Childers APRN - Last Filed: 02/01/24 16:22> Time Seen by Provider: 02/01/24 16:09 <Jose Childers APRN - Last Filed: 02/01/24 16:22> Focused HPI: Darien is a 78-year-old male patient presenting to the ER today with complaints of pain and swelling to the left hand. He reports that he smashed it on a log about 5 weeks ago and was gradually improving however he was helping a friend rake 2 weeks ago and he developed swelling and redness to the hand. Dr. Reynoso wanted him to come in to be evaluated to see if he needed IV antibiotics for cellulitis. No obvious open wound. States he had an x-ray of the hand and was negative for any fracture. Had a MRI of his hand 2 days ago and showed a severe muscle strain and soft tissue swelling. GENERAL: Well-appearing, well-nourished, and in no acute distress. HEAD: Normocephalic, atraumatic. CHEST: Clear to auscultation. No respiratory distress. HEART: Regular rate and rhythm. NEURO: Alert and oriented x3. Patient screened in triage and initial orders placed. Additional care and disposition to be based upon diagnostic testing and treatment. <Jose Childers APRN - Last Filed: 02/01/24 16:22> Source: patient <Jose CHIO Childers - Last Filed: 02/01/24 16:22> Mode of arrival: ambulatory <Jose Childers APRN - Last Filed: 02/01/24 16:22> Limitations: no limitations <Jose Childers APRN - Last Filed: 02/01/24 16:22> History of Present Illness HPI narrative: Agree with above MSE documentation. Denies fevers, chills. Has been taking Tylenol for the pain. Is scheduled to see Dr. Fung in 2 weeks. Patient also complains of intermittent discomfort with his urinary catheter. Wants to be checked for a UTI. Sees Dr. Luna. <Vonda Bonner PA-C - Last Filed: 02/01/24 23:27> Related Data Home medications: Home Medications Medication Instructions Recorded Confirmed aspirin 81 mg tablet,delayed 81 mg PO DAILY 11/27/20 01/16/24 release (Adult Low Dose Aspirin) ferrous sulfate 325 mg (65 mg 325 mg PO DAILY 11/27/20 01/16/24 iron) tablet (Feosol) multivitamin (Daily Multi-Vitamin 1 tablet PO DAILY 11/27/20 01/16/24 tablet) omega-3 fatty acids 1,000 mg 1,000 mg PO DAILY 11/27/20 01/16/24 capsule (Super [place]-3) ranolazine 500 mg tablet,extended 500 mg PO BID 10/13/22 01/16/24 release,12 hr carvedilol 3.125 mg tablet (Coreg) 3.125 mg PO TID 03/17/23 01/16/24 <Jose Childers APRN - Last Filed: 02/01/24 16:22> Allergies/adverse reactions: Allergies Allergy/AdvReac Type Severity Reaction Status Date / Time Penicillins Allergy Unknown Hives Verified 01/26/24 15:37 <Jose Childers APRN - Last Filed: 02/01/24 16:22> Review of Systems Review of Systems: CONSTITUTIONAL: Denies fever, chills, or sweats. GASTROINTESTINAL: Denies abdominal pain, nausea, vomiting GENITOURINARY: See HPI MUSCULOSKELETAL: See HPI NEUROLOGIC: Denies headache, dizziness, numbness, or weakness. 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
[2024-02-01 16:34] LABS: Basophils Percent Auto 0.3 % (0.2-1.2); Eosinophils Absolute Auto 0.2 K/mm3 (0-0.3); Eosinophils Percent Auto 5.1 % (0-4.4); Hematocrit 30.8 % (42.0-52.0); Hemoglobin 10.4 g/dL (14.0-18.0); Immature Granulocyte Absolute 0.01 K/mm3 (0.00-0.031); Immature Granulocyte Percent A 0.3 % (0-0.5); Lymphocytes Absolute Auto 1.28 K/mm3 (0.9-3.2); Lymphocytes Percent Auto 43.4 % (18.3-44.2); Mean Corpuscular HGB Conc 33.8 g/dl (32-36); Mean Corpuscular Hemoglobin 37.3 pg (26-34); Mean Corpuscular Volume 110.4 fl (80-100); Mean Platelet Volume 9.6 fl (7.4-10.4); Monocytes Absolute Auto 0.4 K/mm3 (0.1-0.6); Monocytes Percent Auto 13.2 % (2.6-8.5); Neutrophils Absolute Auto 1.1 K/mm3 (1.3-6.7); Neutrophils Percent Auto 37.7 % (45.5-73.1); Platelet Count Result 168 k/mm3 (150-375); Red Blood Count 2.79 M/mm3 (4.6-6.20); Red Cell Distribution Width 14.5 % (11.5-14.5)
[2024-02-01 16:48] LABS: Alanine Aminotransferase 16 U/L (6-50); Albumin Level 4.6 g/dL (3.5-5.1); Alkaline Phosphatase 57 U/L (38-126); Anion Gap 8 mmol/L (4-12); Aspartate Amino Transferase 21 U/L (17-59); Bilirubin,Total 0.5 mg/dL (0.2-1.3); Blood Urea Nitrogen 32 mg/dL (9-20); CRP < 0.5 mg/dL (<1.0); Calcium 9.9 mg/dL (8.4-10.2); Carbon Dioxide 25 mmol/L (22-30); Chloride 107 mmol/L (98-107); Estimated CRCL calculation 37 ml/min; Estimated Glomerular Filt Rate 53; Glucose 198 mg/dL (65-110); Potassium 4.4 mmol/L (3.4-5.0); Sodium 140 mmol/L (137-145)
[2024-02-01 17:10] LABS: Erythrocyte Sedimentation Rate 35 mm/hr (0-20)
[2024-02-01 17:12] LABS: Platelet Estimate Adequate (Adequate); Schistocytes None Seen
[2024-02-01 17:13] LABS: Anisocytosis 1+; Macrocytosis 1+ (NORMAL)
[2024-02-01 17:42] LABS: Lactic Acid Reflex 1.7 mmol/L (0.7-2.0)
[2024-02-01 19:33] LABS: Appearance Urine Cloudy (Clear); Bacteria Urine 4+ /hpf; Bilirubin Urine Negative (Negative); Blood Urine 1+ (Negative); Color Urine Yellow (Yellow); Glucose Urine UA 3+ mg/dL (Negative); Ketones Urine Negative (Negative); Leukocyte Esterase Ur 2+ LEU/UL (Negative); Need Manual Microscopic Reviewed; Nitrate Urine Negative (Negative); Protein Urine 1+ mg/dL (Negative); RBC Urine 0-2 /hpf (0-2); Specific Grav Ur 1.027 (1.001-1.035); Squamous Epithelial Cell Urine None Seen /hpf (Few); Urobilinogen Urine 0.2 mg/dL (<2.0); WBC Urine >100 /hpf (0-3)
[2024-02-01 19:34] LABS: Add Urine Microscopic? YES
[2024-02-01] MEDS: CEPHALEXIN 500 MG CAPSULE PO (19:51)
[2024-02-01 21:05] VITALS: BP 107/61; PULSE 60; RESP 15; O2SAT 98
== END 2024-02-01 21:08 | disposition home or self-care (01) ==
PROVIDERS: Nurse Practitioner Family; Emergency Provider Physician Assistant; PCP Family Medicine
DX: S66.912A Strain of unspecified muscle, fascia and tendon at wrist and hand level, left hand, initial encounter (principal); T83.511A Infection and inflammatory reaction due to indwelling urethral catheter, initial encounter; E11.22 Type 2 diabetes mellitus with diabetic chronic kidney disease; N18.9 Chronic kidney disease, unspecified; E11.42 Type 2 diabetes mellitus with diabetic polyneuropathy; E03.9 Hypothyroidism, unspecified; E53.8 Deficiency of other specified B group vitamins; D50.9 Iron deficiency anemia, unspecified; D46.9 Myelodysplastic syndrome, unspecified; K21.9 Gastro-esophageal reflux disease without esophagitis; Z96.642 Presence of left artificial hip joint; Z85.828 Personal history of other malignant neoplasm of skin; Z86.73 Personal history of transient ischemic attack (TIA), and cerebral infarction without residual deficits; Z79.82 Long term (current) use of aspirin; Z79.4 Long term (current) use of insulin; Y84.6 Urinary catheterization as the cause of abnormal reaction of the patient, or of later complication, without mention of misadventure at the time of the procedure; W23.0XXA Caught, crushed, jammed, or pinched between moving objects, initial encounter
CPT/HCPCS: 36415; 80053; 81001; 83605; 85025; 85652; 86140; 87077; 87086; 87147; 87181; 87186; 99283; A9270

== ENCOUNTER 2024-05-01 14:30 | Outpatient (RCR) | payer MEDICARE, SELFPAY ==
--- NOTE | 2024-02-17 11:55 | OTOPEVAL1 ---
Assessment and note entered by ISELA Fuentes/Padmini, CHT Evaluation Information 02/17/24 Diagnosis Pain in left hand Subjective Information Patient reporting left middle finger pain and swelling that has persisted for about 8 weeks. He is right handed. Reports the pain wakes him up at night. Has been using ice, Voltaren, and a compression wrap for relief. He reports he is unable to tie a shoe or button buttons. Reported Pain Level Pain Score 0: Self Report Additional Pain Score Comments Reporting no pain at rest. When his hand is bumped against something he experiences 10/10 pain. Assessment OT Clinical Summary Patient referred to OT with left hand pain and suspected sagittal band sprain of the middle finger MCP. He presents with no extensor lag of the finger, just persistent pain, swelling, and stiffness. Fabricated a relative motion orthosis for the patient and he is able to move the IPs well in the splint. He reports no pain with IP motion, just MCP motion. Also issued a compression glove to help with edema. Continued follow up indicated to progress HEP as tolerated, for use of modalities for pain control, splinting, manual therapy, and therapeutic exercise to facilitate optimal return of functional ROM and strength. Plan of Care Interventions Therapeutic Exercise,Manual Therapy,Therapeutic Activities,Hot Pack/Cold Pack,Check Out for Orthotic/Pr,Ultrasound,Paraffin OT Services Indicated Yes Treatment Frequency and 1-2x/week for 6 visits Duration These treatments will address the objective and functional deficits as defined above. The patient will be advanced safely and appropriately in order for the patient to progress towards his/her prior level of function. Additional exercises will be introduced and as well as a comprehensive home exercise program upon discharge, if needed, ?to ensure carryover of functional gains achieved in the clinic. This treatment plan has been reviewed and agreement upon by the patient.
--- NOTE | 2024-02-17 11:56 | OPREHPOC ---
Outpatient Therapy Plan of Care This is a Multidisciplinary Plan of Care that may contain components documented by all disciplines (PT, OT, and ST.) OT Problem 1 OT Problem #1 Knowledge Deficit OT Goal 1 Goal 1. Patient to be independent with instructed materials. 2. Patient to be independent and compliant with splint wearing schedule. Target Visit 7 OT Problem 2 OT Problem #2 Pain OT Goal 1 Goal 1. Patient to be independent with non-medication pain management techniques. Target Visit 7 OT Problem 3 OT Problem #3 Impaired Flexibility OT Goal 1 Goal 1. Patient to improve functional flexibility of the left hand as demonstrated by being able to make a hook fist with <2 cm gap between the finger tips and the DPC. 2. Patient to improve functional flexibility of the left hand as demonstrated by being able to make a composite fist with <1 cm gap between the finger tips and the palm. Target Visit 7
--- NOTE | 2024-03-23 11:50 | PCOTNOTE ---
Patient did not show up for scheduled appointment this date. Called patient and left voicemail regarding missed appt and to call back to reschedule as it was his re-eval.
--- NOTE | 2024-04-13 14:00 | OTOPPROG ---
Assessment and note entered by Gamaliel Whitlock, OTYury/Padmini, CHT OT Progress Update 04/13/24 Assessment Status Progress Diagnosis Pain in left hand Subjective Information Patient reporting some progress. He reports his pain is a little better. He continues to wear a compression glove for comfort. He reports he now able to tie his shoes. He tried to golf and it did not go well . Otherwise he reports he tries to avoid using the hand due to pain. He reports good compliance with his HEP. States he wears the relative motion orthosis when he sleeps. Wrist flexion improved from 45 to 60 deg. Wrist extension improved from 30 [address] improved from 10 to 20 deg. Wrist UD improved from 25 to 30 deg. 0/10 pain with wrist ROM. This improved from 8/10 pain with wrist ROM at the start of care. Finger flexion, tip to palm measurments: - index improved from 4 to 1 cm gap - middle improved from 7 to 2 cm gap - ring improved from 3 to 1 cm gap - small improved from 2 to 1 cm gap (L) appointment coordinator 32 lbs. (R) appointment coordinator 74 lbs. Assessment OT Clinical Summary Patient referred to OT with left hand pain and suspected sagittal band sprain of the middle finger MCP. He has participated in 6 OT sessions focused on reducing pain, improving ROM, and improving functional strength. He has made slow, steady progress with therapy. He is having less pain with assessments today. ROM is making great improvements. He continues to demonstrate residual weakness, stiffness, and pain that limits return to functional use. Continued skilled OT indicated to progress HEP as tolerated, for use of modalities for pain control, splinting, manual therapy, and therapeutic exercise to facilitate optimal return of functional ROM and strength. Plan of Care Interventions Therapeutic Exercise,Manual Therapy,Therapeutic Activities,Hot Pack/Cold Pack,Check Out for Orthotic/Pr,Ultrasound,Paraffin OT Services Indicated Yes Treatment Frequency and 1x/week for 4 visits Duration These treatments will address the objective and functional deficits as defined above. The elise
--- NOTE | 2024-04-13 14:00 | OPREHPOC ---
Outpatient Therapy Plan of Care This is a Multidisciplinary Plan of Care that may contain components documented by all disciplines (PT, OT, and ST.) OT Problem 1 OT Problem #1 Knowledge Deficit OT Goal 1 Goal 1. Patient to be independent with instructed materials. 2. Patient to be independent and compliant with splint wearing schedule. ---OT POC UPDATE 04/13/24--- 1. Met 2. Met Target Visit 10 OT Problem 2 OT Problem #2 Pain OT Goal 1 Goal 1. Patient to be independent with non-medication pain management techniques. ---OT POC UPDATE 04/13/24--- 1. Met, continue to treat pain Target Visit 10 OT Problem 3 OT Problem #3 Impaired Flexibility OT Goal 1 Goal 1. Patient to improve functional flexibility of the left hand as demonstrated by being able to make a hook fist with <2 cm gap between the finger tips and the DPC. 2. Patient to improve functional flexibility of the left hand as demonstrated by being able to make a composite fist with <1 cm gap between the finger tips and the palm. ---OT POC UPDATE 04/13/24--- 1. Progressing, not met 2. Progressing, not met Target Visit 10 OT Problem 4 OT Problem #4 Impaired Strength OT Goal 1 Goal New strength goals, 04/13/24: 1. Patient to increase left battery tester and repairer strength to 40 lbs. 2. Patient to be able to complete left wrist strengthening with 4 lbs. x20 reps without pain. Target Visit 10
--- NOTE | 2024-05-01 15:13 | OTOPPROG ---
Assessment and note entered by Gamaliel Whitlock, ISELA/Padmini, CHT OT Progress Update 05/01/24 Assessment Status Progress Diagnosis Pain in left hand Subjective Information Patient reporting some progress, but overall he is not happy with his level of function in the left hand. He reports he golfed 9 holes the other day and reports he did not have any pain, he did not use his middle finger on the club he says. 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 When gripping a dumbbell for wrist ROM he reports stiffness and tightness. We had a lengthy discussion regarding the importance of incorporating the left hand into ADLs. He states he wears the relative motion orthosis half the day , he finds it comforting. Wrist flexion 60 deg. Wrist extension [address] deg[address] 20 deg. Wrist UD 30 deg. 0/10 pain with wrist ROM. This improved from 8/10 pain with wrist ROM at the start of care. Finger flexion, tip to palm measurements: - index remained at 1 cm gap - middle remained at 2 cm gap - ring improved from 1 to 0 cm gap - small improved from 1 to 0 cm gap Hook fist/tip to DPC measurement: - index improved from 3 to 1 cm gap - middle improved from 4 to 2 cm gap - ring improved from 3 to 0 cm gap - small improved from 3 to 2 cm gap (L) health and safety tech 28 lbs. (R) health and safety tech 70 lbs. Assessment OT Clinical Summary Patient referred to OT with left hand pain and suspected sagittal band sprain of the middle finger MCP. He has participated in 9 OT sessions focused on reducing pain, improving ROM, and improving functional strength. He has made slow, steady progress with therapy. ROM is making great improvements. He continues to demonstrate residual weakness, stiffness, and pain that limits return to functional use. At the beginning of
== END 2024-05-16 09:24 | disposition still patient (30) ==
LOC: ANHGOSHOT 14:30
PROVIDERS: PCP Family Medicine; Visit Provider Plastic Surgery
DX: M79.642 Pain in left hand (principal)
CPT/HCPCS: 97018; 97035; 97110; 97140; 97165; L3806; L3933

== ENCOUNTER 2024-05-29 14:38 | Outpatient (RCR) | payer MEDICARE, SELFPAY ==
--- NOTE | 2024-05-29 13:51 | OTOPDC ---
Assessment and note entered by Gamaliel Whitlock, OTR/L, CHT OT D/C 05/29/24 Diagnosis Pain in left hand Subjective Information Patient reports he is doing great, noticing progress every day. This past month he has not been attending therapy due to being out of town for several weeks on a fishing trip. He states he was using his hand a lot for fishing, kayaking, and driving and this really helped. He just played 9 holes of golf and he was experiencing low amounts of pain and his concrete bucket unloader on the club felt good . He is reporting some residual stiffness, but he is now able to make a fist. Wrist ROM improved to functional limits: Wrist flexion 70 deg. Wrist extension [address] 20 deg. Wrist UD 30 deg. Finger flexion, tip to palm measurements: - index improved from 1 cm gap to 0 cm gap - middle improved from 2 cm gap to 0 cm gap - ring improved from 1 cm gap to 0 cm gap - small remained WNL Hook fist/tip to DPC measurement: - index improved from 3 to 1 cm gap - middle improved from 4 to 2 cm gap - ring improved from 3 to 0 cm gap - small improved from 3 to 2 cm gap (L) concrete bucket unloader improved from 28 lbs. to 48 lbs. (R) concrete bucket unloader 74 lbs. Reported Pain Level Pain Score 1: Self Report Additional Pain Score Comments Patient reports 1/10 is the lowest his hand gets. He states it can get up to 4/10 when he has to concrete bucket unloader with a strong concrete bucket unloader. Assessment OT Clinical Summary Patient referred to OT with left hand pain. Progress was plateauing last month from which appeared to be from patient not using his hand, however in the past month he went on vacation and used his hand for a variety of activities and this has really helped his progress. Today he presents with improved ROM, improved strength, and reduced pain. Reviewed his HEP and patient demonstrates excellent understanding. He states he would like to continue to exercise on his own and that he is ready for discharge. I
== END 2024-05-29 14:39 | disposition home or self-care (01) ==
LOC: ANHGOSHOT 14:38
PROVIDERS: PCP Family Medicine; Visit Provider Plastic Surgery
DX: M79.642 Pain in left hand (principal)
CPT/HCPCS: 97018; 97110

== ENCOUNTER 2024-07-06 09:20 | Outpatient (CLI) | payer MEDICARE, SELFPAY ==
[2024-07-06 16:19] LABS: Microalbumin Urine Random 144.7 mg/L (0-16.7)
[2024-07-06 16:20] LABS: Alanine Aminotransferase 13 U/L (6-50); Alkaline Phosphatase 64 U/L (38-126); Anion Gap 10 mmol/L (4-12); Aspartate Amino Transferase 39 U/L (17-59); Bilirubin,Total 0.3 mg/dL (0.2-1.3); Blood Urea Nitrogen 24 mg/dL (9-20); Calcium 9.1 mg/dL (8.4-10.2); Carbon Dioxide 27 mmol/L (22-30); Chloride 100 mmol/L (98-107); Cholesterol 151 mg/dL (0-200); Estimated Glomerular Filt Rate 58; Glucose 161 mg/dL (65-110); HDL Direct 39 mg/dL; Potassium 4.5 mmol/L (3.4-5.0); Sodium 137 mmol/L (137-145); Triglycerides 87 mg/dL (<150)
[2024-07-06 16:29] LABS: Creatinine Urine 88.6 mg/dL; MALB Creatinine Ratio 163.3 mg/g (0-30)
[2024-07-06 16:32] LABS: Hemoglobin A1C 7.4 % (<5.7)
[2024-07-06 16:33] LABS: LDL Cholesterol Direct 94 mg/dL
== END 2024-07-06 09:21 | disposition home or self-care (01) ==
PROVIDERS: PCP Family Medicine; Visit Provider Family Medicine
DX: E11.9 Type 2 diabetes mellitus without complications (principal)
CPT/HCPCS: 36415; 80053; 80061; 82043; 83036

== ENCOUNTER 2024-09-04 08:00 | Outpatient (RCR) | payer MEDICARE, SELFPAY ==
--- NOTE | 2024-06-26 14:50 | OTOPEVAL1 ---
Assessment and note entered by Gamaliel Whitlock, ISELA/Padmini, CHT Evaluation Information Assessment Status Evaluation Diagnosis Strain of extensor muscle, fascia, and tendon of left middle finger at [facility] ICD-10 Condition Codes (OT) M79.642 Subjective Information Patient has been experiencing left dorsal hand pain since December 2023 after a piece of lumber fell on his hand. He is right handed. He reports being restricted in any sort of gripping - hand tube bender on steering wheel, squeezing tooth paste, gripping a water bottle to open, etc. He wears a relative motion orthosis on the left middle finger to support the MCP joint when he weight lifts. Otherwise he has difficulties completely flexing the left 3rd MCP joint. Reports pain can occasionally wake him up in the middle of the night. Reported Pain Level Pain Score 0: Self Report Additional Pain Score Comments No pain at rest. 5/10 pain with composite flexion of the middle finger. Assessment OT Clinical Summary Patient referred to OT with left hand pain that has been persisting for 6 months. Pain localized to the dorsum of the MCP joint of the left middle finger. Restrictions include decreased functional hand tube bender and pain with gripping. Skilled OT indicated for use of paraffin, US, and iontophoresis, therapeutic exercise, and HEP instruction/ progression to facilitate optimal functional use of his left hand. Plan of Care Interventions Therapeutic Exercise,Manual Therapy,Therapeutic Activities,Hot Pack/Cold Pack,Ultrasound,Paraffin Other Interventions Iontophoresis OT Services Indicated Yes Treatment Frequency and 2x/week for 6 visits Duration These treatments will address the objective and functional deficits as defined above. The patient will be advanced safely and appropriately in order for the patient to progress towards his/her prior level of function. Additional exercises will be introduced and as well as a comprehensive home exercise program upon discharge, if needed, ?to ensure carryover of functional gains achieved in the clinic. This treatment plan has been reviewed and agreement upon by the patient.
--- NOTE | 2024-07-09 08:52 | PCOTNOTE ---
Patient called & cancelled scheduled appointment this date due to his car not starting.
--- NOTE | 2024-07-17 10:23 | OTOPPROG ---
Assessment and note entered by Gamaliel Whitlock, ISELA/Padmini, CHT OT Progress Update 07/17/24 Diagnosis Strain of extensor muscle, fascia, and tendon of left middle finger at [facility] ICD-10 Condition Codes (OT) M79.642 Subjective Information Patient has been experiencing left dorsal hand pain since December 2023 after a piece of lumber fell on his hand. He is right handed. Patient has been completing iontophoresis treatments this month. He reports after an iontophoresis treatment he gets relief for about a day. He reports the hand no longer wakes him up at night. He continues to report difficulties and pain with gripping a steering wheel, wash rag, and tube of toothpaste. He continues to report the most pain with composite flexion of the middle finger, particularly at the MCP joint. Assessment OT Clinical Summary Patient referred to OT with left hand pain that has been persisting for 6 months. Pain localized to the dorsum of the MCP joint of the left middle finger. He has participated in 5 treatment sessions focused on reducing pain and inflammation and improving functional cras. He continues to demonstrate functional limitations due to stiffness, weakness, and pain. He continues to report 7/10 pain with gross gripping tasks. He continues to get relief from therapy, however he continues to not use that hand for ADLs because of the pain. Patient typically feels better after completing heat, ROM, and gentle cras strengthening. Encouraged more use of the hand vs. keeping it immobilized and further leading into more stiffness. Continued skilled OT indicated for use of paraffin, US, and iontophoresis, therapeutic exercise, and HEP instruction/ progression to facilitate optimal functional use of his left hand. Plan of Care Interventions Therapeutic Exercise,Manual Therapy,Therapeutic Activities,Hot Pack/Cold Pack,Ultrasound,Paraffin Other Interventions Iontophoresis OT Services Indicated Yes Treatment Frequency and 2x/week for 6 visits Duration These treatments will address the objective and functional deficits as defined above. The patient will be advanced safely and appropriately in order for the patient to progress towards his/her prior level of function. Additional exercises will be introduced and as well as a comprehensive home exercise program upon discharge, if needed, ?to ensure carryover of functional gains achieved in the clinic. This treatment plan has been reviewed and agreement upon by the patient.
--- NOTE | 2024-07-17 10:24 | OPREHPOC ---
Outpatient Therapy Plan of Care This is a Multidisciplinary Plan of Care that may contain components documented by all disciplines (PT, OT, and ST.) OT Problem 1 OT Problem #1 Knowledge Deficit OT Goal 1 Goal / Goal Update 1. Patient to be independent with HEP. ---OT POC UPDATE 07/17/24--- 1. Met, questionable compliance with HEP, continue Target Visit 12 OT Problem 2 OT Problem #2 Pain OT Goal 1 Goal / Goal Update 1. Patient to be able to resume gross gripping tasks with pain less than 3/10. ---OT POC UPDATE 07/17/24--- 1. Not met, continue Target Visit 12 OT Problem 3 OT Problem #3 Impaired Range of Motion OT Goal 1 Goal / Goal Update ---OT POC UPDATE 07/17/24--- New ROM goal: 1. To increase functional power press tender on the left hand, patient to consistently be able to touch the middle finger to the palm 5/5 trials. Target Visit 12 OT Goal 1 Goal / Goal Update ---OT POC UPDATE 07/17/24--- New strength goal: 1. To increase power press tender strength on toothpaste tube, patient to increase left power press tender strength from 63 to 41 lbs. Target Visit 12
--- NOTE | 2024-08-07 09:27 | OTOPPROG ---
Assessment and note entered by Gamaliel Whitlock, ISELA/Padmini, VALENTINOT OT Progress Update 08/07/24 Assessment Status Progress Diagnosis Strain of extensor muscle, fascia, and tendon of left middle finger ICD-10 Condition Codes (OT) M79.642 Subjective Information Patient has been experiencing left dorsal hand pain since December 2023 after a piece of lumber fell on his hand. He is right handed. Patient reports progress in the last month. He reports he no longer wakes up in the middle of the night with pain. He reports his washing machine loader is better and more comfortable with gripping the tube of toothpaste. He has resumed his home workouts with weight lifting and reports he can sometimes washing machine loader the barbell. He continues to compensate by avoiding gross gripping on objects despite his hand feeling better after he works on his ROM and washing machine loader strength. Assessment OT Clinical Summary Patient referred to OT with left hand pain that has been persisting for 6-7 months. Pain localized to the dorsum of the MCP joint of the left middle finger. He has participated in 10 treatment sessions focused on reducing pain and inflammation and improving functional washing machine loader. He has made progress with improved ROM and improved washing machine loader strength of the left hand. He continues to demonstrate functional limitations due to stiffness, weakness, and pain. He continues to report 7/10 pain with gross gripping tasks. He continues to get relief from therapy, however he continues to not use that hand for ADLs because of the pain. Patient typically feels better after completing heat, ROM, and gentle washing machine loader strengthening. Encouraged more use of the hand vs. keeping it immobilized and further leading into more stiffness. Continued skilled OT indicated for use of paraffin, US, and iontophoresis, therapeutic exercise, and HEP instruction/ progression to facilitate optimal functional use of his left hand. Plan of Care Interventions Therapeutic Exercise,Manual Therapy,Therapeutic Activities,Hot Pack/Cold Pack,Ultrasound,Paraffin OT Services Indicated Yes Treatment Frequency and 2x/week for 8 visits Duration These treatments will address the objective and functional deficits as defined above. The patient will be advanced safely and appropriately in order for the patient to progress towards his/her prior level of function. Additional exercises will be introduced and as well as a comprehensive home exercise program upon discharge, if needed, ?to ensure carryover of functional gains achieved in the clinic. This treatment plan has been reviewed and agreement upon by the patient.
--- NOTE | 2024-08-07 09:27 | OPREHPOC ---
Outpatient Therapy Plan of Care This is a Multidisciplinary Plan of Care that may contain components documented by all disciplines (PT, OT, and ST.) OT Problem 1 OT Problem #1 Knowledge Deficit OT Goal 1 Goal / Goal Update 1. Patient to be independent with HEP. ---OT POC UPDATE 07/17/24--- 1. Met, questionable compliance with HEP, continue ---OT POC UPDATE 08/07/24--- 1. Met Target Visit 20 OT Problem 2 OT Problem #2 Pain OT Goal 1 Goal / Goal Update 1. Patient to be able to resume gross gripping tasks with pain less than 3/10. ---OT POC UPDATE 07/17/24--- 1. Not met, continue ---OT POC UPDATE 08/07/24--- 1. Not met, continue Target Visit 20 OT Problem 3 OT Problem #3 Impaired Range of Motion OT Goal 1 Goal / Goal Update ---OT POC UPDATE 07/17/24--- New ROM goal: 1. To increase functional financial analysis advisor on the left hand, patient to consistently be able to touch the middle finger to the palm 5/5 trials. ---OT POC UPDATE 08/07/24--- 1. Patient is progressing, he continues to have difficulties at first, but can progress to touching the palm Target Visit 20 OT Goal 1 Goal / Goal Update ---OT POC UPDATE 07/17/24--- New strength goal: 1. To increase financial analysis advisor strength on toothpaste tube, patient to increase left financial analysis advisor strength from 36 to 41 lbs. ---OT POC UPDATE 08/07/24--- 1. Goal met, increase financial analysis advisor strength to 50 lbs. Target Visit 20
--- NOTE | 2024-09-04 08:49 | OTOPDC ---
Assessment and note entered by Gamaliel Whitlock, OTR/L, CHT OT D/C REPORT 09/04/24 Diagnosis Strain of extensor muscle, fascia, and tendon of left middle finger ICD-10 Condition Codes (OT) M79.642 Subjective Information Patient has been experiencing left dorsal hand pain since December 2023 after a piece of lumber fell on his hand. He is right handed. Patient reports progress in the last month. He reports improvements with gross gripping, experiencing less pain, which has allowed improved heating equipment repairer on the toothpaste and barbells. He is no longer waking up in the middle of the night with pain. He reports the more he works his hand the better it feels. He reports he is making himself use his hand, which he notices it feels better when he uses it. ROM: - Patient's gross fist has returned to functional limits. Finger tips II-V are able to touch the palm when making a composite fist. He measures a 2 cm gap between finger tips and DPC, which improved from 3 cm gap last month. - Patient reporting no pain with active ROM and gripping with putty today. This improved from 5/10 with active ROM last month. Strength: - Left heating equipment repairer strength improved minimally, from 43 to 46 lbs., however last month he was reporting 8/ 10 pain with heating equipment repairer strength assessment and today he is reporting 2/10. - He has resumed his home workout routine with dumbbells and barbells. He is using his left hand to heating equipment repairer these now compared to a month ago he would avoid a gross heating equipment repairer around his weights. Reported Pain Level Pain Score 0: Self Report Additional Pain Score Comments No pain at rest. No pain with gripping his putty and working on his HEP. Just reporting stiffness . At worst the pain has been in the last week: / . Assessment OT Clinical Summary Patient referred to OT with left hand pain that has been persisting for 8 months. Pain localized to the dorsum of the MCP joint of the left middle finger. He has make slow, steady progress with therapy. His pain has reduced and he is using his hand for more ADL tasks. His full fist has returned to functional limits and his tolerance to heating equipment repairer strengthening has made excellent progress, no longer experiencing 8/10 pain with this. Had a lengthy discussion today about continuing this momentum by continuing to use his hand as much as he can and continuing to work on strengthening within his tolerance. He verbalizes excellent understanding. Discharging OT with patient independent with all materials. Plan of Care OT Services Indicated No
== END 2024-09-04 12:36 | disposition home or self-care (01) ==
LOC: ANHOT 08:00
PROVIDERS: PCP Family Medicine; Visit Provider Plastic Surgery
DX: S66.313D Strain of extensor muscle, fascia and tendon of left middle finger at wrist and hand level, subsequent encounter (principal); M79.642 Pain in left hand; M25.542 Pain in joints of left hand; R60.0 Localized edema
CPT/HCPCS: 97018; 97033; 97110; 97165; 97530

== ENCOUNTER 2025-01-10 01:59 | Day surgery (SDC) | payer MEDICARE, SELFPAY ==
[2025-01-01 14:38] VITALS: BMI 24.5
--- OUTSIDE RECORDS SUMMARY | 2025-01-10 02:01 | XMS_ITS | Clinical Summary ---
Author Organization [facility] [address] [facility] Address [address] [place] [address] Care Team Providers Care Elevator Constructor Hydraulic Name Role Phone Jay Jay Reynoso MD Unavailable [phone] Jay Jay Reynoso MD Primary Care Provider [phone] Allergies Active Allergy Reactions Criticality Noted Date Comments Penicillins Rash Medium 03/29/2012 As teen Penicillin allergy history form completed Medications levothyroxine (SYNTHROID, LEVOTHROID) 100 mcg tablet Take 1 tablet (100 mcg total) by mouth daily before breakfast Active vitamin B complex capsule Take 1 capsule by mouth daily Active nitroglycerin (NITROSTAT) 0.[address] 1 tablet (0.4 mg total) under the tongue every 5 (five) minutes as needed for chest pain Active ONETOUCH VERIO strip USE ONCE D UTD 3 019 Active cholecalcifer ol (VITAMIN D-3) 25 mcg (1,000 unit) tablet Take 1 tablet (1,000 Units total) by mouth daily Active omega-3/dha/e pa/dpa/fish oil (OMEGA-3 2100 ORAL) Take by mouth daily Active coenzyme Q10 100 mg capsule Take 1 capsule (100 mg total) by mouth daily Active hppxidlp71-bv co-Wydeifxa-s lgal 27 mg iron-1.13 mg-581.92 mg capsule Take by mouth Active UNABLE TO FIND Take 1 each by mouth daily Stress Relief Active ibuprofen (ADVIL,MOTRIN ) 200 mg tab/cap Take by mouth every 6 (six) hours as needed for pain Active calcium carbonate (OS-VIDAL) 1,500 mg (600 mg elemental) tablet Take 1 tablet (1,500 mg total) by mouth 2 (two) times a day Active ferrous sulfate ER 324 mg (65 mg iron) EC tabletIndicat ions:Iron Deficiency Anemia Take 65 mg by mouth 3 (three) times a day Active mupirocin (BACTROBAN) 2 % ointment Apply topically 3 (three) times a day X 5 days 023 Active aspirin 81 mg enteric coated tabletIndicat ions:Deep Vein Thrombosis Prevention Take 1 tablet (81 mg total) by mouth 2 (two) times a day 60 tablet 023 Active Additional Information Patient taking differently:81 mg oralOnce, Indications: Deep Vein Thrombosis Prevention, Reported on 01/09/2025 Levemir FlexPen 100 unit/mL (3 mL) pen for injection Inject 10 Units under the skin daily 023 Active Additional Information Patient taking differently: 12 Unitssubcutaneous Daily, Reported on 01/09/2025 Trijardy XR 5-2.5-1,000 mg tablet, IR & ER, biphasic 24hr Take 2 tablets by mouth every morning 023 Active isosorbide mononitrate ER (IMDUR) 60 mg 24 hr tablet Take 1 tablet (60 mg total) by mouth daily 90 tablet 3 024 Active Entresto 24-26 mg tablet TAKE 1 TABLET BY MOUTH TWICE DAILY 180 tablet [address] (PROTONIX) 20 mg EC tablet Take 1 tablet (20 mg total) by mouth every morning 024 Active ranolazine ER (RANEXA) 500 mg 12 hr tablet Take 1 tablet (500 mg total) by mouth 2 (two) times a day 180 tablet 3 024 Active carvediloL (COREG) 3.125 mg tablet TAKE 1 TABLET(3.125 MG) BY MOUTH TWICE DAILY WITH MEALS 180 tablet 025 Active atorvastatin (LIPITOR) 40 mg tablet Take 1 tablet (40 mg total) by mouth daily 30 tablet 11 025 2025 Active metoprolol (LOPRESSOR) 50 mg tablet Take 1/2 tablet twice daily 019 2020 Discontinued terazosin (HYTRIN) 10 mg capsule 019 2020 Discontinued traMADoL (ULTRAM) 50 mg tablet Take 1 tablet (50 mg total) by mouth every 6 (six) hours as needed 023 2024 Discontinued(P atient Reported) carvediloL (COREG) 3.125 mg tablet TAKE 1 TABLET(3.125 MG) BY MOUTH TWICE DAILY WITH MEALS 180 tablet 3 024 2024 Discontinued Active Problems Problem Noted Date Diagnosed Date Status post total hip replacement, left 08/02/20 23 CAD (coronary artery disease) 07/11/2019 Hx of CABG 07/11/2019 Essential hypertension 07/11/2019 Diabetes mellitus type II, non insulin dependent 07/11/2019 Hyperlipidemia 07/11/2019 Abnormal cardiovascular stress test 06/22/2019 Overview (06/22/2019): Added automatically from request for surgery [id number] Chest pain 06/22/2019 Overview (06/22/2019): Added automatically from request for surgery [id number] Encounters Date Type Department Care Team Description 01/09/2025 2:00 PM CDT Office Visit [facility] [address] [place] [address] Riccardo Chang MD Coronary artery disease [place] artery [place] heart with stable angina pectoris (Primary Dx); Hx of CABG; Ischemic cardiomyopathy; Hypertension associated with diabetes (HCC) from Last 3 Months Surgical History Surgery Date Site/Laterality Comments KNEE SURGERY CORONARY ARTERY BYPASS GRAFT X 4 HERNIA REPAIR BONE MARROW BIOPSY CARDIAC CATHETERIZATION SKIN CANCER EXCISION scalp Medical History Medical History Date Comments Joint pain Heart disease CHF (congestive heart failure) (HCC) Arthritis Enlarged prostate Hypertension Motion sickness Constipation Urinary retention 11/02/2022 Webber catheter present Type 2 diabetes mellitus (HCC) TIA (transient ischemic attack) 11/2020 Anemia GERD (gastroesophageal reflux disease) Hypothyroidism Family History Medical History Relation Name Comments No Known Problems Brother Other Father Unknown; Stroke Father Dementia Mother Other Mother Unknown; Relation Name Status Comments Brother Alive Father (Age 83) Mother (Age 81) Social History Tobacco Use Types Packs/Day Years Used Date Smoking Tobacco: Never Smokeless Tobacco: Never Tobacco Cessation:Counseling Given: Not Answered Alcohol Use Standard Drinks/Week Comments Yes 1 (1 standard drink = 0.6 oz pur e alcohol) Social Connection and Isolation Panel [NHANES] A nswer Date Recorded In a typical week, how many times do you talk on the phone with family, friends, or neighbors? Twice a week 08/03/20 How often do you get togethe r with friends or relatives? Three times a week 08/03/2023 How often do you attend chur ch or amish services? Never 08/03/2023 Do you belong to any clubs o r organizations such as christian groups, unions, fraternal or athletic groups, or school groups? No 08/03/2023 How often do you attend meet ings of the clubs or organizations you belong to? 1 to 4 times per year 08/03/2023 Are you , , di vorced, , never , or living with a partner? 08/03/2023 AUDIT-C Answer Date Recorded Q1: How often do you have a drink containing alc ohol? Monthly or less 08/02/2023 Q2: How many drinks containi ng alcohol do you have on a typical day when you are drinking? 1 or 2 08/02/2023 Q3: How often do you have si x or more drinks on one occasion? Never 08/02/2023 Overall Financial Resource Strain (CARDIA) Answe r Date Recorded How hard is it for you to pa y for the very basics like food, housing, medical care, and heating? Not very hard 08/03/2023 PRAPARE - Transportation Answer Date Re corded In the past 12 months, has l ack of transportation kept you from medical appointments or from getting medications? No 07/24 In the past 12 months, has l ack of transportation kept you from meetings, work, or from getting things needed for daily living? No 08/03/2023 Personal Safety Answer Date Recorded Have you ever been in or are you currently in a harmful physical or emotional relationship or is someone making you feel afraid or unsafe? 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 Gender Identity Not on file Sexual Orientation Not on file Obstetrics History Last Filed Vital Signs Vital Sign Reading Time Taken Comments Blood Pressure 100/54 01/09/2025 1:54 PM CDT Pulse 67 01/09/2025 1:54 PM CDT Temperature 36.8 C (98.2 F) 08/03/2023 7:48 AM CDT Respiratory Rate 16 08/03/2023 7:48 AM CDT Oxygen Saturation 93% 01/09/2025 1:54 PM CDT Inhaled Oxygen Concentration - - Weight 68.9 kg (152 lb) 01/09/2025 1:54 PM CDT Height 167.6 cm (5' 6 ) 01/09/2025 1:54 PM CDT Body Mass Index 24.53 01/09/2025 1:54 PM CDT Plan of Treatment Health Maintenance Due Date Last Done Comments Albumin Creatinine Ratio, Urine 1945 Depression Screening 1945 Hemoglobin A1C 1945 Dilated Eye Exam 1945 Foot Exam 1945 DTaP/Tdap/Td Vaccine (1 - Tdap) 1955 Hepatitis B Screening 1962 Zoster Vaccine (1 of 2) 1994 Well Visit 65+ 2009 Pneumococcal vaccine 65+ (2 of 2 - PPSV23) 02/06/2018 12/12/2017 Covid-19 Vaccine (4 - 2023-2 5 season) 2024 08/23/2021, 01/15/2021, 12/25/2020 Influenza Vaccine (#1) 2024 09/17/2022, 2017 Fall Risk Assessment 08/03/2024 08/03/2023, 07/12/2022, 07/06/2021, Additional history exists eGFR 08/03/2024 08/03/2023, 11/24, 12/21/2020, Additional history exists Lipid Panel 01/09/2026 01/09/2025, 07/24, 09/29/2022, Additional history exists Medical Devices Implanted Type Area Cutting Machine Offbearer Device Identifier Shelf Expiration Date Model / Serial / Lot Cinnafilm [id number] Device Closure Angio-Seal Vip Bondek-Plus Polyglyd L70 Cm Od6 Fr Odsec.035 In Vascular - [id number] Implanted:Qty: 1 on 07/19/2019 by Riccardo Chang MD at [facility] 01/22/2020 [id number] / / [employer] Device Closure Vascade Od5 Fr Femoral Artery [id number] - [id number] Implanted:Qty: 1 on 11/04/2022 by Riccardo Chang MD at [facility] [id number] / / Giron [employer] Nephew/Richco/ Ortho R3 56mm 3 Hole Hip Standard Shell Acetabular [id number] - [id number] Implanted:Qty: 1 on 08/02/2023 by Galileo Klein MD at [facility] Left: Hip [employer]/Richco/Or tho [id number] 09/16/2031 [id number] / / [id number] G[employer]hew[employer]Rich[employer]/ Ortho R3 56mm 40mm 20d Liner Acetabular Xlpe [id number] - [id number] Implanted:Qty: 1 on 08/02/2023 by Galileo Klein MD at [facility] Left: Hip [employer]Rich[employer]/Or tho [id number] 05/01/2033 [id number] / / [id number] [employer]Richco/ Ortho Polarstem Cementless Hip 6 Standard Stem Femoral Titanium Mcintosh [id number] - [id number] Implanted:Qty: 1 on 08/02/2023 by Galileo Klein MD at [facility] Left: Hip [employer]hew[employer]Richco/Or tho [id number] 04/15/2029 [id number] / / [id number] G[employer]hew[employer]Richco/ Ortho 40mm Modular Hip Head Femoral Oxinium [id number] - [id number] Implanted:Qty: 1 on 08/02/2023 by Galileo Klein MD at [facility] Left: Hip [employer]Rich[employer]/Or tho [id number] 04/29/2033 [id number] / / [id number] [employer]Rich[employer]/ Ortho Modular Neck Hip +0mm Taper Sleeve Femoral Titanium [id number] - [id number] Implanted:Qty: 1 on 08/02/2023 by Galileo Klein MD at [facility] Left: Hip [employer]Rich[employer]/Or tho [id number] 04/25/2033 [id number] / / [id number] Procedures Procedure Name Priority Date/Time Associated Diagnosis Comments POCT LIPID PANEL Routine 01/09/2025 1:48 PM CDT Coronary artery disease [place] artery [place] heart with stable angina pectoris EGFR Routine 08/03/2023 2:48 AM CDT from Last 3 Months or Most Recently Relevant to Health Maintenance Results * POCT lipid panel (01/09/2025 1:48 PM CDT) Cholesterol, POC 149 mg/dL HDL, POC 44 mg/dL Triglycerides, POC 88 mg/dL LDL Cholesterol POC 87 mg/dL Chol/HDL Ratio, POC 2.0 Non-HDL Cholesterol, POC 105 mg/dL Cholesterol Total, POC 149 mg/dL Capillary blood 01/09/2025 1 :48 PM CDT Riccardo Chang MD POINT OF CARE TEST ORDERABLES Fi nal Result * eGFR (08/03/2023 2:48 AM CDT) eGFR 77 mL/min/1. 73 m2 Comment: Interpretive Data Reference Interval Normal >/= 90 mL/min/1.73m2 Mildly decreased* 60 - 89 mL/min/1.73m2 Mildly to moderately decreased 45 - 59 mL/min/1.73m2 Moderately to severely decreased 30 - 44 mL/min/1.73m2 Severely decreased 15 - 29 mL/min/1.73m2 Kidney Failure < 15 mL/min/1.73m2 *Relative to young adult level Estimated glomerular filtration rate is determined by the 2020 CKD-EPI equation recommended by the National Kidney Foundation (A Unifying Approach to GFR Estimation: Recommendations of the NKF-ASK Task Force on Reassessing the Inclusion of Race in Diagnosing Kidney Disease, JUAN 2020). The CKD-EPI equation should not be used for patients with unstable renal function and has not been validated in children and those over 70. Current interpretive data was last reviewed 2021. Blood 08/03/2023 2:48 AM CDT 08/03/2023 2:51 AM CDT David Diaz MD LAB BLOOD ORDERABLES Final Res ult [facility] [address] [facility] Department [place] [address] from Last 3 Months or Most Recently Relevant to Health Maintenance Insurance MEDICARE SOLUTIONS MEDICARE SOLUTIONS MEDICARE SOLUTIONS Advance Directives For more information, please contact: [phone] * Full Code (Latest Code Status on File) Date Activated Date Inactivated Comments 08/02/2023 9:03 AM 08/03/2023 8:37 PM Care Teams Elevator Constructor Hydraulic Relationship Specialty Start Date End Date Jay Jay Reynoso MD PCP - General Family Medicine 09/08/20 Jay Jay Reynoso MD Family Medicine 11/29/19
--- OUTSIDE RECORDS SUMMARY | 2025-01-10 02:01 | XMS_ITS | Encounter Summary ---
Author Organization [employer] Address [address] [place] [address] Care Team Providers Care Amplifier Mechanic Name Role Phone Unavailable Primary Care Provider Unavailabl e Encounter Details Date Type Department Care Team (Late st Contact Info) Description 12/14/1999 Outpatient Historical Division of [facility] [address] [facility] [address] [address] (Excluded Provider) [place] [address] [facility] [address] [place] [address] Social History Tobacco Use Types Packs/Day Years Used Date Smoking Tobacco: Never Assessed Sex and Gender Information Value Date Recorded Sex Assigned at Not on file Legal Sex Male 4:08 AM RENAL DIETITIAN Gender Identity Not on file Sexual Orientation Not on file documented as of this encounter Plan of Treatment Not on file documented as of this encounter Visit Diagnoses Not on filedocumented in this encounter
--- OUTSIDE RECORDS SUMMARY | 2025-01-10 02:01 | XMS_ITS | Encounter Summary ---
Author Organization [employer] Address 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
--- OUTSIDE RECORDS SUMMARY | 2025-01-10 02:01 | XMS_ITS | Encounter Summary ---
Author Organization [employer] Address [address] [place] [address] Care Team Providers Care Diesel Engine Inspector Name Role Phone Unavailable Primary Care Provider Unavailabl e Encounter Details Date Type Department Care Team (Late st Contact Info) Description 12/01/1999 Outpatient Historical [facility] MRI DEPT Jay Jay Reynoso MD [address] [place] [id number] Amyotrophic lateral sclerosis (CMS/HCC) (Primary Dx) Social History Tobacco Use Types Packs/Day Years Used Date Smoking Tobacco: Never Assessed Sex and Gender Information Value Date Recorded Sex Assigned at Not on file Legal Sex Male 4:08 AM DIRECTOR OF LITIGATION Gender Identity Not on file Sexual Orientation Not on file documented as of this encounter Plan of Treatment Not on file documented as of this encounter Visit Diagnoses Diagnosis Amyotrophic lateral sclerosis (CMS/HCC)- Primary Amyotrophic lateral sclerosis documented in this encounter
--- OUTSIDE RECORDS SUMMARY | 2025-01-10 02:01 | XMS_ITS | Clinical Summary ---
Author Organization [facility] [employer] Address [address] [place] [address] Care Team Providers Care Cyber Security Engineer Name Role Phone Jay Jay Reynoso MD Primary Care Provider [phone] Source Comments [facility],non-owned Affiliates and Associated Physician Practices is amultiple site organization consisting of ambulatory clinics and hospital sitesin [place], [place], [place] and [place]. This disclosure is being madepursuant to the Care Everywhere program and may not contain all information available regarding this patient. Last updated 18.[facility] [employer] Allergies Active Allergy Reactions Criticality Noted Date Comments Penicillins Rash Low 03/29/2012 As teen Medications * Be aware that medications may not be up to date on this document. Alwaysverify current medications with the patient. Medication Sig Dispensed Refills Start Date End Date Status levothyroxine (SYNTHROID) 100 MCG tablet Take 1 Tab by mouth daily before breakfast. Active terazosin (HYTRIN) 10 MG capsule Take 1 Cap by mouth once daily. Active metoprolol succinate XL 24hr (TOPROL XL) 50 MG tablet Take 0.5 Tabs by mouth 2 times daily Active aspirin 81 MG tablet Take 1 Tab by mouth once daily. Active fenofibrate (TRICOR) 145 MG tablet Take 1 Tab by mouth once daily. Active Diltiazem HCl 180 MG CP24 Take 1 Cap by mouth once daily. Active rosuvastatin (CRESTOR) 10 MG tablet Take 10 mg by mouth once daily. Active Coenzyme Q10 (CO Q 10) 100 MG CAPS Take 1 Cap by mouth once daily. Active Multiple Vitamin (MULTI-VITAMIN PO) Take 1 Tab by mouth once daily. Active simvastatin (ZOCOR) 5 MG tablet TK 1 T PO D 1 06/29/2016 Active metFORMIN (GLUCOPHAGE) 1000 MG tablet TK 1 T PO BID 2 06/29/2016 Active lisinopril (PRINIVIL; ZESTRIL) 2.5 MG tablet 07/25/2016 Active fluticasone propionate (FLONASE) 50 MCG/ACT nasal spray ADMINISTER 2 SPRAYS IEN D 3 08/09/2016 Active hydrOXYzine hcl (ATARAX) 25 MG tablet Take 1 tablet by mouth 4 times daily as needed for Itching 30 tablet 02/07/2018 Active famotidine (PEPCID) 20 MG tablet Take 1 tablet by mouth 2 times daily 20 tablet 02/07/2018 Active isosorbide mononitrate CR 24hr (IMDUR) 30 MG tablet 02/12/2021 Acti ve B Complex Vitamins CAPS Take 1 capsule by mouth once daily Active naproxen (Naprosyn) 500 MG tablet Take 1 (one) tablet by mouth 2 times daily 20 tablet 12/22/2022 Active Active Problems No known active problems Family History Medical History Relation Name Comments Colon polyps Brother Colon polyps Father Stroke Father Diabetes Mother Cancer - Colon Neg Hx Relation Name Status Comments Brother Father Mother Social History Tobacco Use Types Packs/Day Years Used Date Smoking Tobacco: Never Smokeless Tobacco: Never Tobacco Cessation:Counseling Given: No Alcohol Use Standard Drinks/Week Comments Yes 5 (1 standard drink = 0.6 oz pur e alcohol) Sex and Gender Information Value Date Recorded Sex Assigned at Not on file Gender Identity Male 04/11/2021 8:06 AM CDT Sexual Orientation Not on file Last Filed Vital Signs Vital Sign Reading Time Taken Comments Blood Pressure 107/71 12/22/2022 2:45 PM RAND MAKER Pulse 72 12/22/2022 2:45 PM RAND MAKER Temperature 36.8 C (98.2 F) 12/22/2022 2:45 PM RAND MAKER Respiratory Rate 16 12/22/2022 2:45 PM RAND MAKER Oxygen Saturation 98% 12/22/2022 2:45 PM RAND MAKER Inhaled Oxygen Concentration - - Weight 68 kg (150 lb) 12/22/2022 10:19 AM RAND MAKER Height 165.1 cm (5' 5 ) 12/22/2022 9:57 AM RAND MAKER Body Mass Index 24.96 12/22/2022 9:57 AM RAND MAKER Plan of Treatment Health Maintenance Due Date Last Done Comments DTAP/TDAP/TD VACCINES (1 - Tdap) 1963 PNEUMOCOCCAL VACCINE 50+ (1 of 1 - PCV) 1994 ZOSTER VACCINE (1 of 2) 1994 Respiratory Syncytial Virus (RSV) Vaccine Pt: or over 60 yrs (1 - 1-dose 75+ series) 2019 COVID-19 VACCINE (4 - 2023-2 5 season) 2024 08/23/2021, 01/15/2021, 12/25/2020 INFLUENZA VACCINE (#1) 2024 09/17/2022 DEPRESSION SCREENING 10/24/2024 MEDICARE AWV CALENDAR YEAR 2024 HEPATITIS B VACCINE Aged Out No longe r eligible based on patient's age to complete this topic HIB VACCINE Aged Out No longer eligi ble based on patient's age to complete this topic HPV VACCINE Aged Out No longer eligi ble based on patient's age to complete this topic MENINGOCOCCAL (Group B) VACCINE SHARED DECISION-MAKING Aged Out No longer eligible based on patient's age to complete this topic MENINGOCOCCAL GROUPS A/C/Y/W VACCINE Aged Out No longer eligible b ased on patient's age to complete this topic Care Teams Cyber Security Engineer Relationship Specialty Start Date End Date Jay Jay Reynoso MD [facility] [place] [id number] PCP - General 03/29/12
--- OUTSIDE RECORDS SUMMARY | 2025-01-10 02:01 | XMS_ITS ---
Author Organization [facility] Address [address] [facility] [address] [place] [address] Care Team Providers Care Welding Machine Operator Helper Arc Name Role Phone Jay Jay Reynoso Primary Care Provider Unavaila Jay Jay King Unavailable [phone] Alka Reynoso MD Unavailable Unavailabl e REASON FOR VISIT DMB - [facility] - Schedule Encounters Encounter Location Date Provider Diagnosis -[facility] [address] [facility] [address] [place] [address] 10/03/2023 Jay Jay Howard Plan Of Treatment No Information Progress Notes * ASHLEY GabyOB:1944 (78 yo M)Acc No.[id number]:10/03/2023 Patient: Kai TAVAREZ :1945 A ge:78 Y S ex:Male [place], [address] * true * Date: Generated for Nedrai ng/Falevig/eTransmitting on: 0 01/10/2025 02:01 AM CDT
--- OUTSIDE RECORDS SUMMARY | 2025-01-10 02:01 | XMS_ITS | Patient Health Record ---
Author Organization [facility] Address [address] [place] [address] Care Team Providers Care Voice Over Announcer Name Role Phone Jay Jay Reynoso Primary Care Provider Jay Jay Beck Unavailable [phone] Alka Reynoso MD Unavailable Unavailabl e Allergies No Known Allergies Reason For Referral No Information Medications Medication SIG (Take, Route, Frequency, Duration) Notes Start Date End Date Status metFORMIN HCl 1000 MG 1 tablet with a me al Orally Once a day for 30 day(s) Active Aspir-81 Active Insulin Aspart 100 UNIT/ML as directed Subcutaneous Active Levothyroxine Sodium 50 MCG 1 tablet in the morning on an empty stomach Orally Once a day for 30 day(s) Active Jardiance 10 MG 1 tablet Orally Once a day for 30 day(s) Active Entresto 24-26 MG 1 tablet Orally Twic e a day for 30 day(s) Active Isosorbide Dinitrate 40 MG 1 tablet Oral ly Twice a day for 30 day(s) Active Social History Tobacco Use: Social History Observation Description Date Details (start date - stop date) Never Smoker NA - NA Smoking Question Answer Notes Are you a: never smoker Alcohol Screen Question Answer Notes How often did you have a dri nk containing alcohol in the past year? 2 to 3 times a week (3 points) Problems Problem Type SNOMED Code ICD Code Onset Dates Problem Status W/U Status Risk Notes Problem Fear of medical treatment (970687300) Fear of injections and transfusions (F40.231) Active confirmed Problem Localized, primary osteoarthritis of the pelvic region and thigh (125477484) Unilateral primary osteoarthritis, left hip (M16.12) Active confirmed Problem Cervical spondylosis without myelopathy (984959873) Spondylosis without myelopathy or radiculopathy, cervical region (M47.812) Active confirmed Plan Of Treatment Pending Test Test Name Order Date X ray : Hip, left 05/02/2023 Insurance Providers Payer Name Payer Address Payer Phone Subscriber Number Group Number Insured Name Patient Relationship to Insured Coverage Start Date Coverage End Date [employer]age [address] [address] [place] [address] [id number] Kai Stewart Self - patient is the insured Medical (General) History Medical History History ICD Code Arthritis: Yes Congestive Heart Failure: Yes Diabetes, type I: Yes High blood pressure: Yes Surgical History Surgery Date(Month/Year)
--- OUTSIDE RECORDS SUMMARY | 2025-01-10 02:01 | XMS_ITS | Encounter Summary ---
Author Organization [facility] Address [address] [place] [address] Phone Care Team Providers Care Heavy Equipment Field Mechanic Name Role Phone Diego Nunez MD Primary Care Provider Jay Jay Reynoso MD Unavailable [phone] Rosibel Rodrigues DPT Unavailable [phone] Jay Jay Reynoso MD Primary Care Provider [phone] Encounter Details Date Type Department Care Team (Late st Contact Info) Description 07/16/2020 Telephone [facility] Physical Therapy [address] [address] Fidelia Macias, B.A. 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 Gender Identity Not on file Sexual Orientation Not on file documented as of this encounter Plan of Treatment Not on file documented as of this encounter Visit Diagnoses Not on filedocumented in this encounter Care Teams Heavy Equipment Field Mechanic Relationship Specialty Start Date End Date Diego Nunez MD [address] [facility] [address] [place] [address] PCP - General Internal Medicine 11/29/19 09/07/20 Jay Jay Reynoso MD [address] [facility] [address] [place] [address] PCP - General Family Medicine 09/08/20 Jay Jay Reynoso MD [address] [facility] [address] [place] [address] Family Medicine 11/29/19 Rosibel Rodrigues DPT [address] [facility] [address] [place] [address] Physical Therapist Physical Therapy 06/25/20 09/01/20 documented as of this encounter
--- OUTSIDE RECORDS SUMMARY | 2025-01-10 02:01 | XMS_ITS | Encounter Summary ---
Author Organization [employer] Address [address] [place] [address] Care Team Providers Care Luncheonette Operator Name Role Phone Unavailable Primary Care Provider Unavailabl e Encounter Details Date Type Department Care Team (Late st Contact Info) Description 11/13/1999 Outpatient Historical Division [facility] [address] 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
--- OUTSIDE RECORDS SUMMARY | 2025-01-10 02:01 | XMS_ITS ---
Author Organization [facility] Address [address] [place] [address] Care Team Providers Care Molding Line Operator Name Role Phone Jay Jay Reynoso Primary Care Provider Unavaila Jay Jay King Unavailable [phone] Alka Reynoso MD Unavailable Unavailabl e Allergies No Known Allergies REASON FOR VISIT neck pain Medications Medication SIG (Take, Route, Frequency, Duration) Notes Start Date End Date Status Insulin Aspart 100 UNIT/ML as directed Subcutaneous Active Aspir-81 Active metFORMIN HCl 1000 MG 1 tablet with a me al Orally Once a day for 30 day(s) Active Jardiance 10 MG 1 tablet Orally Once a day for 30 day(s) Active Levothyroxine Sodium 50 MCG 1 tablet in the morning on an empty stomach Orally Once a day for 30 day(s) Active Isosorbide Dinitrate 40 MG 1 tablet Oral ly Twice a day for 30 day(s) Active Entresto 24-26 MG 1 tablet Orally Twic e a day for 30 day(s) Active Social History Tobacco Use: Social History Observation Description Date Details (start date - stop date) Never Smoker NA - NA Smoking Question Answer Notes Are you a: never smoker Alcohol Screen Question Answer Notes How often did you have a dri nk containing alcohol in the past year? 2 to 3 times a week (3 points) Vital Signs Height 66 in 11/30/2023 Weight 147 lbs 11/30/2023 BMI 23.72 11/30/2023 Blood pressure systolic 102 mm Hg 11/30/19 24 Blood pressure diastolic 63 mm Hg 024 Heart Rate 80 /min 11/30/2023 Temperature 97.8 degrees Fahrenheit 11/30/19 24 Oximetry 99 11/30/2023 Encounters Encounter Location Date Provider Diagnosis -[facility] [address] [place] [address] 11/30/2023 Jay Jay Shepardjoel Spondylosis without myelopathy or radiculopathy, cervical region M47.812 and Generalized anxiety disorder F41.1 Assessments Encounter Date Diagnosis (ICD Code) Assessment Notes Treatment Notes Treatment Clinical Notes Section Notes 11/30/2023 Spondylosis without myelopathy or radiculopathy, cervical region (ICD-10 - M47.812) I will proceed with the radiofrequency ablation of the right C3, C4 and C5 medial branch nerves under fluoroscopy. The patient has return of right-sided neck pain which is axial consistent with facet pain. He noted relief with the previous radiofrequency ablation back in March [place] like continued anemia. He has failed conservative therapy. I discussed the risks including bleeding, infection and neurologic injury. He will follow back as needed. Patient will continue to be a part of a comprehensive pain management program as tolerated, while and after treatment plan is carried out. The patient reported their current pain is 8/10 currently in office but is a 9/10 at worst and their pain disability index score is 40. Patient reports __% inital relief from procedure today and post procedure pain scale is __/10. Following the procedure the patient was monitored for 15 minutes post procedure to insure no side effects from procedure were present. 11/30/2023 Generalized anxiety disorder (ICD-10 - F41.1) Plan Of Treatment Treatment Notes Assessment Notes Spondylosis without myelopat hy or radiculopathy, cervical region I will proceed with the radiofrequency ablation of the right C3, C4 and C5 medial branch nerves under fluoroscopy. The patient has return of right-sided neck pain which is axial consistent with facet pain. He noted relief with the previous radiofrequency ablation back in March [place] like continued anemia. He has failed conservative therapy. I discussed the risks including bleeding, infection and neurologic injury. He will follow back as needed. Patient will continue to be a part of a comprehensive pain management program as tolerated, while and after treatment plan is carried out. The patient reported their current pain is 8/10 currently in office but is a 9/10 at worst and their pain disability index score is 40. Patient reports __% inital relief from procedure today and post procedure pain scale is __/10. Following the procedure the patient was monitored for 15 minutes post procedure to insure no side effects from procedure were present. Next Appt Details Follow Up: 4 Weeks, Reason: RFA follow up Procedure Notes * Category Sub-Category Detail Notes Cervical RFA right C3,C4,C5 *The patient was identified in the holding area and the operative permit was explained and signed. I have discussed with the patient the risks, benefits, side effects and complications of fluoroscopically guided cervical medial branch radiofrequency. I have answered the patient's questions regarding the procedure and have given the patient the opportunity to refuse the procedure. I also have discussed alternative methods of treatment. The patient stated understanding of the procedure and wished to proceed with a fluoroscopically guided cervical medial branch blocks and radiofrequency lesioning. The patient was taken to the fluoroscopic suite and placed on a C-arm table in the prone position with the appropriate monitors placed. A nurse was in attendance for the duration of the procedure to carefully monitor the patient. Please refer to the nursing record for vital sign documentation and for any doses of sedatives and medications. I was present and gave the order for any medications given to the patient. The patient was positioned prone on the fluoroscopy table. The posterior cervical area was prepped and draped in the usual sterile fashion. AP fluoroscopy was utilized to identify the target midway between the superior and inferior articular processes of C3 on the right side. The skin and subcutaneous tissues overlying were anesthetized with 1 cc of 1% Lidocaine via a 27 gauge needle at each level approached. A 22 gauge 10 mm cannula with a 5 mm active tip was then advanced. Once seated in the tissues, lateral fluoroscopy was utilized in order to advance the needle to the middle of the facet pillar at the C3 level. Once satisfactory placement of the first needle was obtained, the procedure was repeated at the C4 and C5 level utilizing AP fluoroscopy to determine appropriate lateral positioning and lateral fluoroscopy to advance the needles to an appropriate depth in the middle of the facet pillars at the respective levels. After completion lateral positioning was double checked with AP fluoroscopy. Motor testing was carried out at 2 Hz and up to 3 Volts which did not result in upper extremity movement. Following appropriate testing, 1 cc of preservative free 0.25% bupivacaine was injected at each level after negative aspiration of blood or CSF. Following, radiofrequency lesioning was conducted at each level for 60 seconds at 80 degrees Celsius. The patient did not note any upper extremity symptoms throughout the radiofrequency procedure. Lateral fluoroscopy was also utilized to constantly compare the needle position with those during testing. The patient tolerated the procedure well and there were no complications. Meaningful verbal contact was maintained with the patient throughout the procedure. The patient was taken to the recovery area. The patient remained in stable condition with no apparent complications. Post procedure instructions were given to the patient and a follow up appointment was confirmed. The patient was also discharged with information on how to reach the clinic or certified professional coder physician at anytime for questions or complaints., CPT- 21494 (RT), 31403 (RT), ICD-10- M47.812 cervical spondylosis, Estimated blood loss 0 ml Progress Notes * Gaby RAMIREZOB:1944 (78 yo M)Acc No.[id number]:11/30/2023 Progress Note Patient: Kai TAVAREZ Provider: Mariel Howard MD :1945 A ge:78 Y S ex:Male Date:11/30/2023 Address:[facility] [place] [address] Pcp:Jay Jay Reynoso Subjective: * Chief Complaints: * N aj pain * HPI: N aj Pain: The patient returns to the pain clinic. He has return of pain in the right cervical spine. The pain is the axial consistent with the cervical facet pain. He has failed conservative therapy. Previously on 04/06/23, I performed a radiofrequency circulation of the right side C3, C4 and C5 medial branch nerves under fluoroscopy. The patient noted over 80% relief for over seven months. He has requested a repeat treatment. * ROS: C ancer: Breast N o. P rostate N o. S kin N o. O thers N o. A utoimmune: Fibromylagia N o. L upus N o. T MJ N o.?Osteoarthritis N o. R heumatoid arthritis N o. O thers N o. R enal: Kidney stones N o. K idney infections N o. O thers N o. G enitourinary: Prostrate problems N o. U rinary Incontinence N o.?Bladder infections N o. O thers N o. C entral nervous system: Stroke N o. H eadaches N o. M igraines N o.?Nerve Damage N o. O thers N o. I nfectious disease: Hepatitis N o. M ononucleosis N o. O thers N o. P sychiatric: Depression N o. E CT Treatments N o. A nxiety?No. A lcoholism N o. P anic Attacks N o. D rug Addiction N o. O ther?No. C ardiology: High blood Pressure Y es. H eart Attack N o. A ngina(Chest Pain) N o. C ongestive heart failure Y es. O thers N o. ? E ndocrinology: Diabetes Y es. T hyroid disease N o. O thers?No. G astroenterology: Peptic ulcer disease N o. I rritable bowel syndrome?No. G ERD N o. D iverticulosis N o. O thers N o. H ematology/Lymph: Anemia N o. S ickle Cell N o. O thers N o.? R espiratory: Asthma N o. C hronic Bronchitis N o. P neumonia?No. C OPD N o. O thers N o. * Medical History: * Surgical History: N o Surgical History documented. * Hospitalization/Major Diagno stic Procedure: N o Hospitalization History. * Family History: F ather: No. M other: No. S iblings: No. * Social History: M arried: Yes. P regnancy: No. C hildren: 3. E ducation: Bachelors. O ccupation: Retired. D isability: No. S moking Are you a: n ever smoker E lectronic Cigarettes: No. A lcohol Screen How often did you have a drink containing alcohol in the past year? 2 to 3 times a week (3 points) C affeine: No. E xercise: Regularly. R ecreational drug use: No. * Medications: T akingIsosorbide Dinitrate 40 MG Tablet 1 tablet Orally Twice a day Entresto 24- 26 MG Tablet 1 tablet Orally Twice a day Insulin Aspart 100 UNIT/ML Solution Pen- injector as directed Subcutaneous Aspir-81 Jardiance 10 MG Tablet 1 tablet Orally Once a day Levothyroxine Sodium 50 MCG Tablet 1 tablet in the morning on an empty stomach Orally Once a day metFORMIN HCl 1000 MG Tablet 1 tablet with a meal Orally Once a day Medication List reviewed and reconciled with the patientTaking Isosorbide Dinitrate 40 MG Tablet 1 tablet Orally Twice a day Taking Entresto 24-26 MG Tablet 1 tablet Orally Twice a day Taking Insulin Aspart 100 UNIT/ML Solution Pen-injector as directed Subcutaneous Taking Aspir-81 Taking Jardiance 10 MG Tablet 1 tablet Orally Once a day Taking Levothyroxine Sodium 50 MCG Tablet 1 tablet in the morning on an empty stomach Orally Once a day Taking metFORMIN HCl 1000 MG Tablet 1 tablet with a meal Orally Once a day Medication List reviewed and reconciled with the patient * Allergies: N .K.D.A.no[Allergies Verified] Objective: * Vitals: H t: 66, Wt: 147, BMI: 23.72, BP: 102/63, HR: 80, Temp: 97.8, RR: 17, Pain Scale: 8/10, PO2: 99. * Examination: G eneral examination: General appearance: a lert and oriented to person, place and time, in no acute distress. HEENT: N ormocephalic/atraumatic. Lungs: n on labored breathing. Assessment: * Assessment: 1. S pondylosis without myelopathy or radiculopathy, cervical region - M47.812 (Primary) 2 . G eneralized anxiety disorder - F41.1 Plan: * Treatment: * Procedures: C ervical RFA: right C3,C4,C5 * The patient was identified in the holding area and the operative permit was explained and signed. I have discussed with the patient the risks, benefits, side effects and complications of fluoroscopically guided cervical medial branch radiofrequency. I have answered the patient's questions regarding the procedure and have given the patient the opportunity to refuse the procedure. I also have discussed alternative methods of treatment. The patient stated understanding of the procedure and wished to proceed with a fluoroscopically guided cervical medial branch blocks and radiofrequency lesioning. The patient was taken to the fluoroscopic suite and placed on a C-arm table in the prone position with the appropriate monitors placed. A nurse was in attendance for the duration of the procedure to carefully monitor the patient. Please refer to the nursing record for vital sign documentation and for any doses of sedatives and medications. I was present and gave the order for any medications given to the patient. The patient was positioned prone on the fluoroscopy table. The posterior cervical area was prepped and draped in the usual sterile fashion. AP fluoroscopy was utilized to identify the target midway between the superior and inferior articular processes of C3 on the right side. The skin and subcutaneous tissues overlying were anesthetized with 1 cc of 1% Lidocaine via a 27 gauge needle at each level approached. A 22 gauge 10 mm cannula with a 5 mm active tip was then advanced. Once seated in the tissues, lateral fluoroscopy was utilized in order to advance the needle to the middle of the facet pillar at the C3 level. Once satisfactory placement of the first needle was obtained, the procedure was repeated at the C4 and C5 level utilizing AP fluoroscopy to determine appropriate lateral positioning and lateral fluoroscopy to advance the needles to an appropriate depth in the middle of the facet pillars at the respective levels. After completion lateral positioning was double checked with AP fluoroscopy. Motor testing was carried out at 2 Hz and up to 3 Volts which did not result in upper extremity movement. Following appropriate testing, 1 cc of preservative free 0.25% bupivacaine was injected at each level after negative aspiration of blood or CSF. Following, radiofrequency lesioning was conducted at each level for 60 seconds at 80 degrees Celsius. The patient did not note any upper extremity symptoms throughout the radiofrequency procedure. Lateral fluoroscopy was also utilized to constantly compare the needle position with those during testing. The patient tolerated the procedure well and there were no complications. Meaningful verbal contact was maintained with the patient throughout the procedure. The patient was taken to the recovery area. The patient remained in stable condition with no apparent complications. Post procedure instructions were given to the patient and a follow up appointment was confirmed. The patient was also discharged with information on how to reach the clinic or certified professional coder physician at anytime for questions or complaints., CPT- 20887 (RT), 91363 (RT), ICD-10- M47.812 cervical spondylosis, Estimated blood loss 0 ml. * Procedure Codes: 6 4633 DESTROY CERV/THOR FACET [id number] DESTROY C/TH FACET JNT [id number] INJECTION MIDAZOLAM HCL PER 1 [id number] MOD SED SAME PHYS/QHP 5/>YRS * Follow Up: 4 Weeks (Reason: RFA follow up) * Images: Billing Information: * Visit Code: * Procedure Codes: 20566 DESTROY CERV/THOR FACET JNT. 46325 DESTROY C/TH FACET JNT ADDL. J2250 INJECTION MIDAZOLAM HCL PER 1 MG. 87311 MOD SED SAME PHYS/QHP 5/>YRS. * ESIS NURSE Sign off status: Completed true * Provider: Mariel Howard MD Date: 0 11/30/2023 Generated for Printi ng/Falevig/eTransmitting on: 0 01/10/2025 02:01 AM CDT History and Physical Notes * HPI (History of Present Illness) Category Sub-Category Detail Notes Category Not es Neck Pain The patient ret urns to the pain clinic. He has return of pain in the right cervical spine. The pain is the axial consistent with the cervical facet pain. He has failed conservative therapy. Previously on 04/06/23, I performed a radiofrequency circulation of the right side C3, C4 and C5 medial branch nerves under fluoroscopy. The patient noted over 80% relief for over seven months. He has requested a repeat treatment. Examination Category Sub-Category Detail Notes Category Not es General examination HEENT: Normocephalic/atrauma tic Lungs: non labored breathin g General appearance: alert and oriented t o person, place and time, in no acute distress
--- OUTSIDE RECORDS SUMMARY | 2025-01-10 02:01 | XMS_ITS | Encounter Summary ---
Author Organization [employer] Address [address] [place] [address] Care Team Providers Care Packer Name Role Phone Unavailable Primary Care Provider Unavailabl e Encounter Details Date Type Department Care Team (Late st Contact Info) Description 01/26/2000 Outpatient Historical Division [facility] [address] [address] [address] (Excluded Provider) [place] [address] [facility] [address] [place] [address] Social History Tobacco Use Types Packs/Day Years Used Date Smoking Tobacco: Never Assessed Sex and Gender Information Value Date Recorded Sex Assigned at Not on file 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
--- OUTSIDE RECORDS SUMMARY | 2025-01-10 02:01 | XMS_ITS | Referral Summary ---
Author Organization [facility] [address] [facility] Address [address] [place] [address] Care Team Providers Care Coppersmith Helper Name Role Phone Jay Jay Reynoso MD Unavailable [phone] Jay Jay Reynoso MD Primary Care Provider [phone] Encounters Date Type Department Care Team Description 01/09/2025 2:00 PM CDT Office Visit [facility] Cardiology [address] [place] [address] Riccardo Chang MD Coronary artery disease of [place] artery of [place] heart with stable angina pectoris (Primary Dx); Hx of CABG; Ischemic cardiomyopathy; Hypertension associated with diabetes (HCC) from Last 3 Months Allergies Active Allergy Reactions Criticality Noted Date [...] (100 mg total) by mouth daily Active rjcorluh25-vc xj-Izpznprv-s lgal 27 mg iron-1.13 mg-581.92 mg capsule [...] (three) times a day X 5 days Active aspirin 81 mg enteric coated tabletIndicat ions:Deep Vein Thrombosis Prevention Take 1 tablet (81 mg total) by mouth 2 (two) times a day 60 tablet Active Additional Information Patient taking differently:81 mg oralOnce, Indications: Deep Vein Thrombosis Prevention, Reported on 01/09/2025 Levemir FlexPen 100 unit/mL (3 mL) pen for injection Inject 10 Units under the skin daily Active Additional Information Patient taking differently: 12 Unitssubcutaneous Daily, Reported on 01/09/2025 Trijardy XR 5-2.5-1,000 mg tablet, IR & ER, biphasic 24hr Take 2 tablets by mouth every morning Active isosorbide mononitrate ER (IMDUR) 60 mg 24 hr tablet Take 1 tablet (60 mg total) by mouth daily 90 tablet 3 024 Active Entresto 24-26 mg tablet TAKE 1 TABLET BY MOUTH TWICE DAILY 180 [address] (PROTONIX) 20 mg EC tablet Take 1 tablet (20 mg total) by mouth every morning Active ranolazine ER (RANEXA) 500 mg 12 [...] (06/22/2019): Added automatically from request for surgery [id number] Chest pain 06/22/2019 Overview (06/22/2019): Added automatically from request for surgery [id number] Social History Tobacco Use Types Packs/Day Years [...] week 08/03/2023 How often do you attend [facility] or amish services? 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 Gender Identity Not on file Sexual Orientation Not on file Last Filed [...] 01/09/2025 1:54 PM CDT Plan of Treatment Not on file Medical Devices Implanted Type Area Rigger Device Identifier Shelf Expiration Date Model / Serial / Lot Lyft [id number] Device Closure Angio-Seal Vip [place]-Plus Polyglyd L70 Cm Od6 Fr Odsec.035 In Vascular - [id number] Implanted:Qty: 1 on 07/19/2019 by Riccardo Chang MD at [facility] [employer] 01/22/2020 [id number] / / [employer] Device Closure Vascade Od5 Fr Femoral Artery [id number] - [id number] Implanted:Qty: 1 on 11/04/2022 by Riccardo Chang MD at [facility] 700-500DX-[id number] [id number] / / [employer]Rich[employer]/ Ortho R3 56mm 3 Hole Hip Standard Shell Acetabular [id number] - [id number] Implanted:Qty: 1 on 08/02/2023 by Galileo Klein MD at [facility] Left: Hip [employer]Rich[employer]/Or tho [id number] 09/16/2031 [id number] / / [id number] [employer]/ Ortho R3 56mm 40mm 20d Liner Acetabular Xlpe [id number] - [id number] Implanted:Qty: 1 on 08/02/2023 by Galileo Klein MD at [facility] Left: Hip [employer]Or tho [id number] 05/01/2033 [id number] / / [id number] [employer]/ Ortho Polarstem Cementless Hip 6 Standard Stem Femoral Titanium Mcintosh [id number] - [id number] Implanted:Qty: 1 on 08/02/2023 by Galileo Klein MD at [facility] Left: Hip [employer]Or tho [id number] 04/15/2029 [id number] / / [id number] [employer]/ Ortho 40mm Modular Hip Head Femoral Oxinium [id number] - [id number] Implanted:Qty: 1 on 08/02/2023 by Galileo Klein MD at [facility] Left: Hip [employer]Or tho [id number] 04/29/2033 [id number] / / [id number] [employer]/ Ortho Modular Neck Hip +0mm 12/14 Taper Sleeve Femoral Titanium [id number] - [id number] Implanted:Qty: 1 on 08/02/2023 by Galileo Klein MD at [facility] Left: Hip [employer]Or tho [id number] 04/25/2033 [id number] / / [id number] Procedures Procedure Name Priority Date/Time Associated Diagnosis Comments POCT LIPID PANEL Routine 01/09/2025 1:48 PM CDT Coronary artery disease of [place] artery of [place] heart with stable angina pectoris EGFR Routine 08/03/2023 2:48 AM CDT from Last 3 Months or Most Recently Relevant to Health Maintenance Results * POCT lipid panel (01/09/2025 1:48 PM CDT) Pathologist [facility] Cholesterol, POC 149 mg/dL HDL, POC 44 mg/dL Triglycerides, POC 88 mg/dL LDL Cholesterol POC 87 mg/dL Chol/HDL Ratio, POC 2.0 Non-HDL Cholesterol, POC 105 mg/dL Cholesterol Total, POC 149 mg/dL Capillary blood 01/09/2025 1 :48 PM CDT us Riccardo Chang MD POINT OF CARE TEST ORDERABLES Fi nal Result * eGFR (08/03/2023 2:48 AM CDT) Pathologist [facility] eGFR 77 mL/min/1. 73 m2 Comment: Interpretive [...] Inclusion of Race in Diagnosing Kidney Disease, JASN 2020). The CKD-EPI equation should not be used for patients with unstable renal function and has not been validated in children and those over 70. Current interpretive data was last reviewed 2021. Blood 08/03/2023 2:48 AM CDT 08/03/2023 2:51 AM CDT David Diaz MD LAB BLOOD ORDERABLES Final Res ult [facility] [address] [facility] Department of Laboratories [place], [place] [id number] from Last 3 Months or Most Recently Relevant to Health Maintenance Insurance MEDICARE SOLUTIONS MEDICARE SOLUTIONS MEDICARE SOLUTIONS Advance Directives For more information, please contact: [phone] * Full Code (Latest Code Status on File) Date Activated Date Inactivated Comments 08/02/2023 9:03 AM 08/03/2023 8:37 PM Care Teams Coppersmith Helper Relationship Specialty Start Date End Date Jay Jay Reynoso MD PCP - General Family Medicine 09/08/20 Jay Jay Reynoso MD Family Medicine 11/29/19
--- OUTSIDE RECORDS SUMMARY | 2025-01-10 02:01 | XMS_ITS | Encounter Summary ---
Author Organization [facility] Address 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
--- OUTSIDE RECORDS SUMMARY | 2025-01-10 02:01 | XMS_ITS | Encounter Summary ---
Author Organization [facility] Healthcare Address [address] [place] [address] Care Team Providers Care Shrinker Name Role Phone Jay Jay Reynoso MD Unavailable [phone] Jay Jay Reynoso MD Primary Care Provider [phone] Reason for Visit * Reason Comments Follow-up 6 M follow up Encounter Details Date Type Department Care Team (Late st Contact Info) Description 01/09/2025 2:00 PM CDT Office Visit [facility] Medical Group Cardiology [address] [place] [address] Riccardo Chang MD [address] [address] Coronary artery disease of [place] artery of [place] heart with stable angina pectoris (Primary Dx); Hx of CABG; Ischemic cardiomyopathy; Hypertension associated with diabetes (HCC) Social History Tobacco Use Types Packs/Day Years [...] week 08/03/2023 How often do you attend [facility] or roman catholic services? Never 08/03/2023 Do you belong to any clubs o r organizations such as taoism groups, unions, fraternal or athletic groups, or [...] on file Legal Sex Male 3:30 AM [employer] Gender Identity Not on file Sexual Orientation Not on file documented as of this encounter Last Filed Vital Signs Vital Sign Reading Time Taken Comments Blood Pressure 100/54 01/09/2025 1:54 PM CDT Pulse 67 01/09/2025 1:54 PM CDT Temperature - - Respiratory Rate - - Oxygen Saturation 93% 01/09/2025 1:54 PM CDT Inhaled Oxygen Concentration - - Weight 68.9 kg (152 lb) 01/09/2025 1:54 PM CDT Height 167.6 cm (5' 6 ) 01/09/2025 1:54 PM CDT Body Mass Index 24.53 01/09/2025 1:54 PM CDT documented in this encounter Ordered Prescriptions Prescription Sig Dispense Quantity Refills Last Filled Start Date End Date atorvastatin (LIPITOR) 40 mg tablet Take 1 tablet (40 mg total) by mouth daily 30 tablet 11 01/09/2025 01/09/2026 documented in this encounter Progress Notes * Riccardo Chang MD - 01/09/2025 2:00 PM CDT [facility] 01/09/2025 CHIEF COMPLAINT Chief Complaint Patient presents with Follow-up 6 M follow up Chest pain, off and on x3 months HPI Darien Guzman is a 79 y.o. male with known CAD, history of remote CABG x4 (operative report not available, performed at [place], [place]), hypertension, type 2 diabetes mellitus, dyslipidemia. 06/13/2019-initial evaluation: Patient has known coronary disease, however has not had regular follow-up visit over last several years. He states that he saw Dr. Becker at one point of time few years ago, although, no records could be found in our EMR. He has been doing reasonably well over lastseveral years until 3 months ago when he started having exertional chest discomfort with walking, especially walking uphill. More recently, he has been experiencing discomfort during sexual intercourse. He also has dyspnea on exertion. He denies palpitation, dizziness or loss of consciousness. No PND, orthopnea or lower extremity swelling. He reports that he feels weak in his lower extremities lat bandar. He reports compliance with current medical regimen and heart healthy diet. 08/27/2019-patient is here for the follow-up visit after recent angiogram which showed severe [place] vessel CAD; patent bypass grafts, normal LVEF. His antianginal medications were optimized, and hasbeen on long-acting nitroglycerin and ranolazine in addition to other medications. On the follow-upvisit today, he reports resolution of the angina. His exercise capacity has improved. Reports compliance with current medical regimen. 09/08/2020- on the follow-up visit today, patient reports mild chest discomfort on heavy exertion. He denies any significant shortness of breath for level of activity. He has occasional orthostatic dizziness without syncope. Patient reports that he occasionally has low blood pressures, could not give the numbers. Reports compliance with current medical regimen. 12/22/2020- patient is here for the follow-up visit accompanied by his . Yesterday, patient hadan episode of dizziness and disorientation, and was taken to [facility]. His EKG showed sinus bradycardia, heart rate 49 beats per minute, right bundle branch block. Patient wasnot hypoglycemic. CT scan did not show any acute intracranial abnormality. Patient was ruled out for MD. His beta-varinder was discontinued. Patient's states that patient does not eat and drink regularly. Patient has stable angina, and is on isosorbide mononitrate. He occasionally needs sublingual nitroglycerin. Denies any significant shortness of breath for his level of activity. He has postural dizziness without syncope. 07/06/2021-on the follow-up visit today, patient states that he has stable chest pain. He gets chest discomfort when he starts play golf, and occasionally when he has an orgasm. His symptoms subsidedonce he gets going with playing golf. He denies any recurrent episodes of dizziness. No significantdyspnea for his level of activity. He reports compliance with current medical regimen. Patient states that he recently got from his . Patient follows up with Hematology for management ofhis anemia. 02/03/2022-on the follow-up today, patient reports anginal chest pain. He states that he gets chestdiscomfort at the beginning of playing golf and pickle ball which resolves after continued activity. He also states that he gets chest discomfort during sexual intercourse. He denies chest pain at rest. Patient has occasional orthostatic dizziness. No palpitations, syncope. No significant shortnessof breath for his level of activity. Reports compliance with current medical regimen. 07/12/2022-on the follow-up visit today, patient patient reports chest discomfort at the beginning of the exercise which improves as the patient continues to exercise. He is otherwise physically active, plays golf and pickle ball on a regular basis. Denies any significant shortness of breath for his level of activity. No palpitation, dizziness or syncope. Reports compliance with current medical regimen. 09/29/2022-on the follow-up visit today, patient reports worsening of anginal chest pain with more frequent episodes, especially when he tries to play pickle ball. He states that any time he tries toexert, he gets chest discomfort, which is sometimes relieved with nitroglycerin and often with rest. He denies chest pain while he is resting. He has been using nitroglycerin more frequently lately. No significant shortness of breath. No palpitation, dizziness or syncope. Reports compliance with current medical regimen. 11/10/2022- Patient has been experiencing worsening anginal chest pain with more frequent episodes of exertional chest discomfort. He has been optimal medical treatment including antianginal treatment with nitrates and ranolazine. Previously metoprolol was discontinued due to dizziness and bradycardia. Discussed previous angiographic findings with the patient which showed severe [place] vessel CAD; and essentially graft dependent. Due to worsening chest discomfort, patient was eager to proceed with repeat cardiac catheterization to reassess bypass grafts. He was recently admitted to [facility] on 10/13/2022 with constipation, ? Bladder outlet obstruction, and was found to be in KARYNA. His cardiac catheterization was postponed until renal function stabilized. Recent coronary angiogram showed that he is graft dependent. One of the aorta coronary grafts was not visualized and is likelyoccluded. His other grafts to left and right coronary systems are patent. Angiographic findings have not significantly changed compared to the previous cardiac catheterization. LVEF is 27% on recent echo. Since recent cardiac catheterization, patient states that he has had relatively sedentary lifestyle. He denies any recurrent chest discomfort at present. No dyspnea for his limited activity at present. Denies PND, orthopnea lower extremity swelling. Patient states he currently has a bladder catheter in place, follows up with a urologist. 01/19/2023-on the follow-up visit today, patient denies any significant shortness of breath for hislevel activity. He plays golf and pickle ball on a regular basis. Denies angina. No palpitations, dizziness or syncope. Reports compliance with current medical regimen. He states he follows up with he matologist for his chronic anemia. 04/20/2023-patient is here for the routine follow-up visit. He reports generalized fatigue. He states that he is able to walk at a slow pace without difficulty. He continues to play pickleball, all the he plays it less frequently. He states that he has started playing golf now. Denies chest pain. No palpitation, dizziness or syncope. He reports compliance with current medical regimen. He is concerned about the higher cost for Jardiance and Entresto. 01/09/2025-on the follow-up visit today, patient denies any major cardiovascular symptoms includingchest pain, shortness breath for level activity. Patient states that he plays 18 holes of golf, although he uses a cart. Reports compliance with current medication but has not been fully compliant with statin. MEDICAL HISTORY he has a past medical history of Anemia, Arthritis, CHF (congestive heart failure) ([facility]), Constipation, Enlarged prostate, GERD (gastroesophageal reflux disease), Heart disease, Hypertension, Hypothyroidism, Joint pain, Motion sickness, TIA (transient ischemic attack) (11/2020), Type 2 diabetes mellitus ([facility]), and Urinary retention (11/02/2022). he has a past surgical history that includes Knee surgery; Coronary artery bypass graft; Hernia repair; Bone marrow biopsy; Cardiac catheterization; and Skin cancer excision. CABG x4 at [facility]; operative report not available. he Allergies Allergen Reactions Penicillins Rash As teen Penicillin allergy history form completed Current Outpatient Medications Medication Sig Dispense Refill aspirin 81 mg enteric coated tablet Take 1 tablet (81 mg total) by mouth 2 (two) times a day (Patient taking differently: Take 1 tablet (81 mg total) by mouth once) 60 tablet 0 calcium carbonate (OS-VIDAL) 1,500 mg (600 mg elemental) tablet Take 1 tablet (1,500 mg total) by mouth 2 (two) times a day carvediloL (COREG) 3.125 mg tablet TAKE 1 TABLET(3.125 MG) BY MOUTH TWICE DAILY WITH MEALS 180 tablet 0 cholecalciferol (VITAMIN D-3) 25 mcg (1,000 unit) tablet Take 1 tablet (1,000 Units total) by mouthdaily coenzyme Q10 100 mg capsule Take 1 capsule (100 mg total) by mouth daily Entresto 24-26 mg tablet TAKE 1 TABLET BY MOUTH TWICE DAILY 180 tablet 3 ferrous sulfate ER 324 mg (65 mg iron) EC tablet Take 65 mg by mouth 3 (three) times a day ibuprofen (ADVIL,MOTRIN) 200 mg tab/cap Take by mouth every 6 (six) hours as needed for pain isosorbide mononitrate ER (IMDUR) 60 mg 24 hr tablet Take 1 tablet (60 mg total) by mouth daily 90 tablet 3 Levemir FlexPen 100 unit/mL (3 mL) pen for injection Inject 10 Units under the skin daily (Patient taking differently: Inject 12 Units under the skin daily) levothyroxine (SYNTHROID, LEVOTHROID) 100 mcg tablet Take 1 tablet (100 mcg total) by mouth daily before breakfast [id number]-kpbde 27 mg iron-1.13 mg-581.92 mg capsule Take by mouth nitroglycerin (NITROSTAT) 0.[address] 1 tablet (0.4 mg total) under the tongue every 5 (five) minutes as needed for chest pain omega-3/dha/epa/dpa/fish oil (OMEGA-3 2100 ORAL) Take by mouth daily ONETOUCH VERIO strip USE ONCE D UTD [address] (PROTONIX) 20 mg EC tablet Take 1 tablet (20 mg total) by mouth every morning ranolazine ER (RANEXA) 500 mg 12 hr tablet Take 1 tablet (500 mg total) by mouth 2 (two) times a day 180 tablet 3 Trijardy XR 5-2.5-1,000 mg tablet, IR & ER, biphasic 24hr Take 2 tablets by mouth every morning vitamin B complex capsule Take 1 capsule by mouth daily atorvastatin (LIPITOR) 40 mg tablet Take 1 tablet (40 mg total) by mouth daily 30 tablet 11 mupirocin (BACTROBAN) 2 % ointment Apply topically 3 (three) times a day X 5 days (Patient not taking: Reported on 01/09/2025) UNABLE TO FIND Take 1 each by mouth daily Stress Relief No current facility-administered medications for this visit. he family history includes Dementia in his mother; No Known Problems in his brother; Other in his father and mother; Stroke in his father. he reports that he has never smoked. He has never used smokeless tobacco. He reports current alcohol use of about 1.0 standard drink of alcohol per week. He reports that he does not use drugs. REVIEW OF SYSTEMS General ROS: Positive for fatigue Psychological ROS: negative for - anxiety, depression Ophthalmic ROS: negative for - loss of vision ENT ROS: negative for - sore throat, epistaxis, headaches, nasal congestion Allergy and Immunology ROS: negative for - hives, postnasal drip or seasonal allergies Hematological and Lymphatic ROS: Positive for low blood counts Respiratory ROS: negative for - cough, hemoptysis, wheezing Cardiovascular ROS: No angina or shortness of breath at present Gastrointestinal ROS: Positive for dyspepsia Endocrine ROS: Positive for diabetes without any major symptoms Musculoskeletal ROS: Weakness in the lower extremities Neurological ROS: negative for - gait disturbance, weakness Dermatological ROS: negative for pruritus, rash LABS AND OTHER DIAGNOSTIC TESTS REVIEWED Lab Results Component Value Date WBC 4.9 08/03/2023 HGB 9.0 (L) 08/03/2023 HCT 27.5 (L) 08/03/2023 MCV 114.6 (H) 08/03/2023 No lab exists for component: LABALBU Lab Results Component Value Date WBC 4.9 08/03/2023 HGB 9.0 (L) 08/03/2023 HCT 27.5 (L) 08/03/2023 MCV 114.6 (H) 08/03/2023 Lab Results Component Value Date CHOL 123 08/03/2023 Lab Results Component Value Date HDL 31 (L) 08/03/2023 No results found for: LDL ] Lab Results Component Value Date TRIG 150 (H) 08/03/2023 Echo- Normal left ventricular wall thickness. Moderate enlargement of left ventricle cavity. Left ventricular systolic function at the lower limit of normal. Normal left ventricular diastolic function. Ejection fraction is visually estimated at 55 %. These segments of the LV are hypokinetic: basal i nferior segment and mid inferior segment. There is moderate enlargement of left atrium. Increased left atrial pressure based on pulmonary vein inflow. Mitral valve leaflets appear mildly thickened. Mild mitral valve regurgitation. Aortic cusps appear mildly sclerotic. Mild aortic valve regurgitation. Mild tricuspid regurgitation. Moderate pulmonic regurgitation. Normal sinus rhythm. 01/31/2018-Dr. Vernon EKG-sinus rhythm, left anterior fascicular block, right bundle branch block. 06/13/2019 Lipid panel-total cholesterol 107, HDL 36, triglycerides 107, LDL 50. 06/13/2019 Cardiac catheterization- Severe [place] vessel CAD- A) 100% occlusion (chronic total occlusion) distal left main B) 100% occlusion mid RCA. Patent LEO to LAD; patent jump graft arising from LEO to OM/LPL branch; patent graft to distal RCA branches. Patent left subclavian artery. Ectatic aorta. Preserved LV systolic function, ejection fraction 60-65%; LVEDP 21 mmHg. 07/19/2019 Lipids-total cholesterol 110, HDL 47, triglycerides 68, LDL 49. 12/22/2020 EKG-sinus rhythm, right bundle branch block. 02/03/2022 Echo- Normal left ventricular systolic function. No focal wall motion abnormalities. Moderate concentric left ventricular hypertrophy. Normal left ventricular size. Normal global left ventricular systolic function. Normal left ventricular diastolic function. Ejection fraction is measured at 67 %. Moderate enlargement of left atrium. Mild tricuspid regurgitation. Mild pulmonary hypertension. Estimated peak RVSP is 38 mmHg. Normal sinus rhythm. Compared to the Echo of 05/2019, segmental wall motion abnormalities are not appreciated on this study. 03/24/2022-Dr. Valdez Lipids-total cholesterol 129, HDL 40, triglycerides 44, LDL 38. 09/29/2022 EKG-sinus rhythm, RBBB, LAFB. 09/29/2022 Cardiac catheterization-Severe [place] vessel CAD- A) 100% occlusion (chronic total occlusion) distal left main-from previous angiogram B) 100% occlusion mid RCA Patent LEO to LAD; patent jump graft arising from LEO to OM/LPL branch; patent graft to distal RCA branches. Patent left subclavian artery Ectatic aorta LVEF visually estimated at about 35%; poor visualization of the LV cavity. LVEDP elevated at 19 mmHg. 11/04/2022 Echo-Moderate LV enlargement. Moderate LVH. Severe global left ventricular systolic dysfunction. Restrictive diastolic dysfunction Grade III to IV. Ejection fraction is measured at 27 %. Global Longitudinal Strain abnormal at -8 %. Normal right ventricular size with mild hypokinesis. Moderate left atrial enlargement. Atrial septum bowed to right consistent with elevated left atrial pressures. Mild mitral annular calcification. Mild mitral valve regurgitation. Normal appearance of the aortic valve. No significant aortic stenosis by Doppler. Trace aortic valve regurgitation. Moderate pulmonary hypertension, RVSP 47 mmHg. Mild tricuspid regurgitation. Moderate to severe pulmonic regurgitation.11/08/2022 2 Labs-hemoglobin 9.6, MCV 115.7, platelet count 218. 11/19/2022 Labs-hemoglobin 8.7, MCV 115.7, platelet count 192. 12/06/2022 Echo-mild LV enlargement, mild LVH, LVEF about 55%, global longitudinal strain - 13%. Severe left, moderate right atrial enlargement. Moderate MAC, mild MR. Mild aortic valve sclerosis, no stenosis, trace aortic regurgitation, mild TR, RVSP 23 mmHg. 06/22/2023 Echo-normal LV size, mild LVH, LVEF 55%, grade 1 diastolic dysfunction, global longitudinal strain -12%. Moderate left atrial enlargement. Aneurysmal atrial septum. 07/27/2024; Dr. Becker Lipids-total cholesterol 149, LDL 44, triglycerides 88, LDL 87. 01/09/2025 PHYSICAL EXAM Vitals BP 100/54 (BP Location: Left arm, Patient Position: Sitting) Pulse 67 Ht 167.6 cm (5' 6 ) Wt 68.9 kg (152 lb) SpO2 93% BMI 24.53 kg/m?? General appearance -pale-appearing, alert, no distress, oriented to time, place, person Mental status - affect appropriate to mood Eyes - extraocular eye movements intact, pallor Ears - external ears appear normal, slightly decreased hearing Nose - normal and patent, no discharge Mouth - mucous membranes moist, tongue normal Neck - supple, no JVD Chest - clear to auscultation Heart - normal rate, regular rhythm, prominent S1, S2; S4 gallop Abdomen - soft, nontender Neurological - alert, oriented, normal speech, no gross motor deficits Musculoskeletal - no major deformity, no amputations Extremities - no pedal edema, no clubbing or cyanosis Skin - no rashes (on the exposed areas), no cyanosis ASSESSMENT Diagnoses and all orders for this visit: Coronary artery disease of [place] artery of [place] heart with stable angina pectoris (Primary) Hx of CABG Ischemic cardiomyopathy Hypertension associated with diabetes (HCC) Other orders - atorvastatin (LIPITOR) 40 mg tablet; Take 1 tablet (40 mg total) by mouth daily PLAN/RECOMMENDATIONS 79 y.o. male with known CAD, history of remote CABG x4 in approximately 1994 (operative report not available, performed at [place], [place]), hypertension, type 2 diabetesmellitus, dyslipidemia. -patient has CAD and ischemic cardiomyopathy. Prior coronary angiogram showed severe [place] vessel CAD; and essentially graft dependent, angiographic findings not significantly changed compared to the previous angiogram. Continue low-dose aspirin indefinitely as tolerated; and resume atorvastatin. Current LDL 87, target LDL less than 55. Currently on antianginal medications including isosorbide mononitrate, beta- varinder and ranolazine. - Patient has ischemic cardiomyopathy, and history of LV systolic dysfunction. Echocardiogram from 07/27/2024 showed normalization of LV systolic function. Currently on carvedilol, sacubitril/valsartan. Previously metoprolol was discontinued due to dizziness and bradycardia. He has been tolerating low-dose carvedilol 3.125 mg p.o. b.i.d. well so far. -patient has history of macrocytic anemia. He was advised to continue to follow- up with PCP and Hematology. No overt bleeding. He is currently receiving iron supplementation under Hematology care. - counseling done regarding heart healthy/low-salt diet. Aerobic exercise as tolerated . -follow-up in about 12 months or sooner if needed. 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 documented in this encounter Miscellaneous Notes * Addendum Note - Irina Ortiz MA - 01/09/2025 2:00 PM CDTAddended by: IRINA ORTIZ on: 01/09/2025 02:50 PM Modules accepted: Orders documented in this encounter Plan of Treatment Not on file documented as of this encounter Procedures Procedure Name Priority Date/Time Associated Diagnosis Comments POCT LIPID PANEL Routine 01/09/2025 1:48 PM CDT Coronary artery disease of [place] artery of [place] heart with stable angina pectoris documented in this encounter Results * POCT lipid panel (01/09/2025 1:48 PM CDT) Cholesterol, POC 149 mg/dL HDL, POC 44 mg/dL Triglycerides, POC 88 mg/dL LDL Cholesterol POC 87 mg/dL Chol/HDL Ratio, POC 2.0 Non-HDL Cholesterol, POC 105 mg/dL Cholesterol Total, POC 149 mg/dL Capillary blood 01/09/2025 1 :48 PM CDT Riccardo Chang MD POINT OF CARE TEST ORDERABLES Fi nal Result documented in this encounter Visit Diagnoses Diagnosis Coronary artery disease of [place] artery of [place] heart with stable angina pectoris- Primary Hx of CABG Postsurgical aortocoronary bypass status Ischemic cardiomyopathy Other specified forms of chronic ischemic heart disease Hypertension associated with diabetes (HCC) Unspecified essential hypertension documented in this encounter Discontinued Medications Medication Sig Discontinue Reason Start Date End Da te traMADoL (ULTRAM) 50 mg tablet Take 1 tablet (50 mg total) by mouth every 6 (six) hours as needed Patient Reported 07/28/2023 01/09/2025 documented as of this encounter Care Teams Shrinker Relationship Specialty Start Date End Date Jay Jay Reynoso MD PCP - General Family Medicine 09/08/20 Jay Jay Reynoso MD Family Medicine 11/29/19 documented as of this encounter
--- OUTSIDE RECORDS SUMMARY | 2025-01-10 02:02 | XMS_ITS | Clinical Summary ---
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 Gender Identity Not on file Sexual Orientation Not on file Plan of Treatment Health Maintenance Due Date Last Done Comments DIABETES ANNUAL FOOT EXAM 1962 DIABETES ANNUAL RETINAL EXAM 1962 DIABETES HBA1C Q 6 MONTHS 1962 DIABETES MICROALBUMIN ANNUAL SCREEN 1962 LDL CHOLESTEROL ANNUAL 1962 DTAP/TDAP/TD VACCINES (1 - Tdap) 1963 PNEUMOCOCCAL VACCINE 50+ YEARS (1 of 2 - PCV) 06/27/19 63 ZOSTER VACCINE (1 of 2) 1994 RSV VACCINE (60+ or ) (1 - 1-dose 75+ series) 2019 INFLUENZA VACCINE (#1) [address] [place] [id number] [facility] [id number] [facility] [place] [id number]
--- OUTSIDE RECORDS SUMMARY | 2025-01-10 02:02 | XMS_ITS ---
Author Organization [facility] Address [address] [facility] [address] [place] [address] Care Team Providers Care Dental Therapist Name Role Phone Jay Jay Reynoso Primary Care Provider Unavaila Jay Jay King Unavailable [phone] Alka Reynoso MD Unavailable Unavailabl e REASON FOR VISIT Neck pain Medications Medication SIG (Take, Route, Frequency, [...] to 3 times a week (3 points) Encounters Encounter Location Date Provider Diagnosis -[facility] [address] [facility] [address] [place] [address] 12/28/2023 Jay Jay Howard Plan Of Treatment No Information Progress Notes * Gaby RAMIREZOB:1944 (79 yo M)Acc No.[id number]:12/28/2023 Progress Note Patient: Mariel REYES Kai Provider: Mariel Howard MD :1945 A ge:78 Y S ex:Male Date:12/28/2023 Address:[address] [place] [address] [facility], [id number] Pcp:Jay Jay Reynoso Subjective: * Chief Complaints: * 1 . Neck pain. * ROS: C ancer: Breast N o. [...] O thers N o. * Medical History: A rthritis: Yes, Congestive Heart Failure: Yes, Diabetes, type I: Yes, High blood pressure: Yes. * Surgical History: D enies Past Surgical History. * Hospitalization/Major Diagno stic Procedure: D enies Past Hospitalization. * Family History: F ather: No. M [...] ecreational drug use: No. * Medications: T aking Isosorbide Dinitrate 40 MG Tablet 1 tablet Orally Twice a day , Taking Entresto 24-26 MG Tablet 1 tablet Orally Twice a day , Taking Insulin Aspart 100 UNIT/ML Solution Pen-injector as directed Subcutaneous , Taking Aspir-81 , Taking Jardiance 10 MG Tablet 1 tablet Orally Once a day , Taking Levothyroxine Sodium 50 MCG Tablet 1 tablet in the morning on an empty stomach Orally Once a day , Taking metFORMIN HCl 1000 MG Tablet 1 tablet with a meal Orally Once a day , Medication List reviewed and reconciled with the patient Objective: * Vitals: Assessment: Plan: * Treatment: * Images: Billing Information: * Visit Code: * Procedure Codes: * Electronic signature of Blue Howard MD on 01/10/2025 at 02:01 AM CDT Sign off status: Pending * Provider: Mariel Howard MD Date: 12/28/2023 Generated for Cody uriostegui/Ibrahima/Crystal on: 01/10/2025 02:01 AM CDT
[2025-01-10 08:14] VITALS: BP 110/86; PULSE 59; RESP 18; TEMP 36.1; O2SAT 100
[2025-01-10] MEDS: LACTATED RINGERS 1,000 ML 150 ML IV CONT (08:27)
[2025-01-10 08:32] LABS: Glucose Point of Care 143 mg/dl (65-105)
--- NOTE | 2025-01-10 08:34 | P.PNAN_ITS ---
Anes - Initial Pre Proc Eval Procedure: Operation Date: 01/10/25 09:30 Proposed Procedures p Colonoscopy - Hector Ryan MD Date/Time: 01/10/25 08:34 Surgeon: Hector Ryan MD Pre Op Diagnosis: Personal HX of colon polyps. Patient Data Age: 79 Gender: M Height: 1.65 m Weight: 67.8 kg Last Vital Signs Temp 36.1 C L 01/10/25 08:14 Pulse 59 L 01/10/25 08:14 Resp 18 01/10/25 08:14 BP 110/86 01/10/25 08:14 Pulse Ox 100 01/10/25 08:14 O2 Del Method Room Air 01/10/25 08:14 Allergies Allergy/AdvReac Type Severity Reaction Status Date / Time Penicillins Allergy Unknown Hives Verified 01/10/25 08:11 Home Medications ?Medication ?Instructions ?Recorded ?Confirmed ?Type aspirin 81 mg tablet,delayed 81 mg PO DAILY 11/27/20 01/10/25 History release (Adult Low Dose Aspirin) ferrous sulfate 325 mg (65 mg 325 mg PO DAILY 11/27/20 01/10/25 History iron) tablet (Feosol) multivitamin (Daily Multi-Vitamin 1 tablet PO DAILY 11/27/20 01/10/25 History tablet) omega-3 fatty acids 1,000 mg 1,000 mg PO DAILY 11/27/20 01/10/25 History capsule (Super [place]-3) ranolazine 500 mg tablet,extended 500 mg PO BID 10/13/22 01/10/25 History release,12 hr sacubitril 24 mg-valsartan 26 mg 1 tablet PO BID #30 tabs 11/15/22 01/10/25 Rx tablet (Entresto) blood sugar diagnostic (OneTouch #200 ea 01/05/23 01/01/25 Rx Verio test strips) carvedilol 3.125 mg tablet (Coreg) 3.125 mg PO TID 03/17/23 01/10/25 History flash glucose scanning reader #1 ea 08/31/23 01/01/25 Rx (FreeStyle Drea 2 [place]) isosorbide mononitrate 60 mg 60 mg PO BID #180 tabs 12/26/23 01/10/25 Rx tablet,extended release 24 hr levothyroxine 100 mcg tablet 100 mcg PO DAILY #90 tabs 03/29/24 01/10/25 Rx pantoprazole 20 mg tablet,delayed 20 mg PO QAM 3 months #90 tabs 04/05/24 01/10/25 Rx release empagliflozin 5 mg-linagliptin 2.5 2 tablet (2 x 5-2.5-1,000 mg) PO 06/18/24 01/10/25 Rx mg-metformn ER 1,000 mg QAM #180 ea tablet,24hr (Trijardy XR) insulin detemir U-100 100 unit/mL 11 unit (0.11 mL) subcut QHS #15 mL 07/16/24 01/10/25 Rx (3 mL) subcutaneous pen flash glucose sensor (FreeStyle #13 ea 07/20/24 01/01/25 Rx Drea 2 Sensor kit) nitroglycerin 0.4 mg sublingual 0.4 mg sublingual Q5M PRN chest 09/28/24 01/01/25 Rx tablet pain #25 tabs coenzyme Q10 100 mg capsule (Co 100 mg PO DAILY 01/01/25 01/10/25 History Q-10) Laboratory Tests 01/10/25 08:21 POC Capillary Glucose 143 H mg/dl (65-105) Patient hx anesthesia problems: none Family hx anesthesia problems: none Results Review: All pre-operative results and documents have been reviewed as part of the pre- operative evaluation. 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 Chronic kidney disease Diabetic peripheral neuropathy Iron deficiency anemia Osteoarthritis Hypothyroidism Gastroesophageal reflux disease Coronary artery disease 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 Code status: Full code. Smoking status: Never smoker Second hand tobacco smoke exposure: No Alcohol intake: current Drinks per week: 1 Substance use: never Substance use type: does not use Lack of Transportation: No Lack of Food: Never True Current Housing: I Have Housing Concerned About Future Housing: No Difficulty Paying Gas/Electric Bills: No Difficulty Paying for Meds: No Currently Unemployed: No Education: Master's Degree or Higher Difficulty w/ Childcare or Family Care: No Living arrangements: with family Additional living arrangements comments: The patient lives in his own home in [place]. He and his are . 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: No Anes - Eval Final PreProcedure Day of Procedure 01/10/25 08:34 Patient weight: normal Heart: regular rate and rhythm Lungs: clear to auscultation Airway: Mallampati scale class II Neurological: alert and oriented Last oral intake: >/= 8 hours ASA classification: IV Emergent: no Anesthetic plan: proceed Anesthesia type and monitoring: general GIVS and standard monitoring Results Review: All pre-operative results and documents have been reviewed as part of the pre- operative evaluation. Informed Consent: The patient's anesthetic plan and its attendant risks and benefits were discussed with the patient/family/POA. Questions were solicited and answers provided to the satisfaction of the patient/family/POA.
--- NOTE | 2025-01-10 09:18 | PM.HPGS ---
History of Present Illness History of Present Illness Consent: Risks, benefits, and alternatives have been discussed and questions answered. Patient agrees to proceed with procedure. Chief complaint: Personal HX of colon polyps. 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 Chronic kidney disease Diabetic peripheral neuropathy Iron deficiency anemia Osteoarthritis Hypothyroidism Gastroesophageal reflux disease Coronary artery disease 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 Code status: Full code. Smoking status: Never smoker Second hand tobacco smoke exposure: No Alcohol intake: current Drinks per week: 1 Substance use: never Substance use type: does not use Lack of Transportation: No Lack of Food: Never True Current Housing: I Have Housing Concerned About Future Housing: No Difficulty Paying Gas/Electric Bills: No Difficulty Paying for Meds: No Currently Unemployed: No Education: Master's Degree or Higher Difficulty w/ Childcare or Family Care: No Living arrangements: with family Additional living arrangements comments: The patient lives in his own home in [place]. He and his are . 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: No Meds Home Medications and Allergies Home Medications ?Medication ?Instructions ?Recorded ?Confirmed ?Type aspirin 81 mg tablet,delayed 81 mg PO DAILY 11/27/20 01/10/25 History release (Adult Low Dose Aspirin) ferrous sulfate 325 mg (65 mg 325 mg PO DAILY 11/27/20 01/10/25 History iron) tablet (Feosol) multivitamin (Daily Multi-Vitamin 1 tablet PO DAILY 11/27/20 01/10/25 History tablet) omega-3 fatty acids 1,000 mg 1,000 mg PO DAILY 11/27/20 01/10/25 History capsule (Super [place]-3) ranolazine 500 mg tablet,extended 500 mg PO BID 10/13/22 01/10/25 History release,12 hr sacubitril 24 mg-valsartan 26 mg 1 tablet PO BID #30 tabs 11/15/22 01/10/25 Rx tablet (Entresto) blood sugar diagnostic (OneTouch #200 ea 01/05/23 01/01/25 Rx Verio test strips) carvedilol 3.125 mg tablet (Coreg) 3.125 mg PO TID 03/17/23 01/10/25 History flash glucose scanning reader #1 ea 08/31/23 01/01/25 Rx (Piano MediaStyle Drea 2 [place]) isosorbide mononitrate 60 mg 60 mg PO BID #180 tabs 12/26/23 01/10/25 Rx tablet,extended release 24 hr levothyroxine 100 mcg tablet 100 mcg PO DAILY #90 tabs 03/29/24 01/10/25 Rx pantoprazole 20 mg tablet,delayed 20 mg PO QAM 3 months #90 tabs 04/05/24 01/10/25 Rx release empagliflozin 5 mg-linagliptin 2.5 2 tablet (2 x 5-2.5-1,000 mg) PO 06/18/24 01/10/25 Rx mg-metformn ER 1,000 mg QAM #180 ea tablet,24hr (Trijardy XR) insulin detemir U-100 100 unit/mL 11 unit (0.11 mL) subcut QHS #15 mL 07/16/24 01/10/25 Rx (3 mL) subcutaneous pen flash glucose sensor (FreeStyle #13 ea 07/20/24 01/01/25 Rx Drea 2 Sensor kit) nitroglycerin 0.4 mg sublingual 0.4 mg sublingual Q5M PRN chest 09/28/24 01/01/25 Rx tablet pain #25 tabs coenzyme Q10 100 mg capsule (Co 100 mg PO DAILY 01/01/25 01/10/25 History Q-10) Allergies Allergy/AdvReac Type Severity Reaction Status Date / Time Penicillins Allergy Unknown Hives Verified 01/10/25 08:11 Vital Signs Vital Signs - 24 hr 01/10/25 08:14 Temperature 97 F L Pulse Rate 59 L Respiratory Rate 18 Blood Pressure 110/86 Pulse Oximetry 100 Oxygen Delivery Room Air Exam Const: General: comfortable and no acute distress HENMT: Face/Nose/Sinus: Normal nares present Eyes: General: appearance normal, both eyes and all related structures Neck: Neck: no JVD Resp: Auscultation: clear to auscultation bilaterally Cardio: Rate: regular rate Rhythm: regular rhythm GI: Inspection: non-distended GI Palp: Yes Soft to palpation Skin: General skin exam: normal color Neuro: Speech: normal speech Extrem: General: normal to inspection Psych: Mental Status: mental status grossly normal Assessment and Plan Assessment and plan (1) Colon polyp: Code(s): K63.5 - Polyp of colon Status: Acute Assessment and Plan: colonoscopy
[2025-01-10 09:38] VITALS: BP 97/42; PULSE 62; RESP 21; O2SAT 100
[2025-01-10 09:48] VITALS: BP 113/33; PULSE 58; RESP 13; O2SAT 100
[2025-01-10 09:56] LABS: Glucose Point of Care 144 mg/dl (65-105)
[2025-01-10 09:58] VITALS: BP 110/48; PULSE 59; RESP 19; O2SAT 100
== END 2025-01-10 10:25 | disposition home or self-care (01) ==
PROVIDERS: PCP Family Medicine; Referring Provider Nurse Practitioner Family; Visit Provider Internal Medicine Gastroenterology
PROC: 0DJD8ZZ Inspection of Lower Intestinal Tract, Via Natural or Artificial Opening Endoscopic (ICD-10-PCS; CPT 45378; principal; 2025-01-10 09:30)
DX: Z12.11 Encounter for screening for malignant neoplasm of colon (principal); D12.3 Benign neoplasm of transverse colon; K63.5 Polyp of colon; K64.8 Other hemorrhoids; E11.22 Type 2 diabetes mellitus with diabetic chronic kidney disease; N18.9 Chronic kidney disease, unspecified; E11.42 Type 2 diabetes mellitus with diabetic polyneuropathy; D50.9 Iron deficiency anemia, unspecified; E03.9 Hypothyroidism, unspecified; K21.9 Gastro-esophageal reflux disease without esophagitis; E53.8 Deficiency of other specified B group vitamins; I25.10 Atherosclerotic heart disease of native coronary artery without angina pectoris; Q44.1 Other congenital malformations of gallbladder; M87.052 Idiopathic aseptic necrosis of left femur; D46.9 Myelodysplastic syndrome, unspecified; M19.90 Unspecified osteoarthritis, unspecified site; Z79.4 Long term (current) use of insulin; Z79.82 Long term (current) use of aspirin; Z79.84 Long term (current) use of oral hypoglycemic drugs; Z98.890 Other specified postprocedural states; Z98.61 Coronary angioplasty status; Z95.1 Presence of aortocoronary bypass graft; Z86.69 Personal history of other diseases of the nervous system and sense organs; Z86.73 Personal history of transient ischemic attack (TIA), and cerebral infarction without residual deficits; Z85.828 Personal history of other malignant neoplasm of skin; Z87.19 Personal history of other diseases of the digestive system; Z82.49 Family history of ischemic heart disease and other diseases of the circulatory system
CPT/HCPCS: 45385; 82948; 88305; J2003; J2371; J2704; J7120

== ENCOUNTER 2025-01-11 09:22 | Outpatient (CLI) | payer MEDICARE, SELFPAY ==
--- OUTSIDE RECORDS SUMMARY | 2025-01-11 10:23 | XMS_ITS | Encounter Summary ---
Author Organization [facility] Address [address] [place] [address] Phone Care Team Providers Care Computer Forensics Analyst Name Role Phone Diego Nunez MD Primary Care Provider Jay Jay Reynoso MD Unavailable [phone] Rosibel Rodrigues DPT Unavailable [phone] Jay Jay Reynoso MD Primary Care Provider [phone] Encounter Details Date Type Department Care Team (Late st Contact Info) Description 07/16/2020 Telephone [facility] Physical Therapy [address] [address] Fidelia Macias, B.A. 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 Gender Identity Not on file Sexual Orientation Not on file documented as of this encounter Plan of Treatment Not on file documented as of this encounter Visit Diagnoses Not on filedocumented in this encounter Care Teams Computer Forensics Analyst Relationship Specialty Start Date End Date Diego Nunez MD [address] [facility] [address] [place] [address] PCP - General Internal Medicine 11/29/19 09/07/20 Jay Jay Reynoso MD [address] [facility] [address] [place] [address] PCP - General Family Medicine 09/08/20 Jay Jay Reynoso MD [address] [facility] [address] [place] [address] Family Medicine 11/29/19 Rosibel Rodrigues DPT [address] [facility] [address] [place] [address] Physical Therapist Physical Therapy 06/25/20 09/01/20 documented as of this encounter
--- OUTSIDE RECORDS SUMMARY | 2025-01-11 10:23 | XMS_ITS | Clinical Summary ---
Author Organization [facility] Address [address] [place] [address] Care Team Providers Care Experimental Physicist Name Role Phone Jay Jay Reynoso MD Primary Care Provider [phone] Source Comments [facility],non-owned Affiliates and Associated Physician Practices is amultiple site organization consisting of ambulatory clinics and hospital sitesin [place], [place], [place] and [place]. This disclosure is being madepursuant to the Care Everywhere program and may not contain all information available regarding this patient. Last updated 18.[facility] Allergies Active Allergy Reactions Criticality Noted Date [...] Comments Blood Pressure 107/71 12/22/2022 2:45 PM CANOE BUILDER Pulse 72 12/22/2022 2:45 PM CANOE BUILDER Temperature 36.8 C (98.2 F) 12/22/2022 2:45 PM CANOE BUILDER Respiratory Rate 16 12/22/2022 2:45 PM CANOE BUILDER Oxygen Saturation 98% 12/22/2022 2:45 PM CANOE BUILDER Inhaled Oxygen Concentration - - Weight 68 kg (150 lb) 12/22/2022 10:19 AM CANOE BUILDER Height 165.1 cm (5' 5 ) 12/22/2022 9:57 AM CANOE BUILDER Body Mass Index 24.96 12/22/2022 9:57 AM CANOE BUILDER Plan of Treatment Health Maintenance Due Date [...] age to complete this topic Care Teams Experimental Physicist Relationship Specialty Start Date End Date Jay Jay Reynoso MD [facility] [place] [address] PCP - General 03/29/12
--- OUTSIDE RECORDS SUMMARY | 2025-01-11 10:23 | XMS_ITS | Patient Health Record ---
Author Organization [facility] Address [address] [place] [address] Care Team Providers Care Rn Cardiovascular Name Role Phone Jay Jay Reynoso Primary Care Provider Jay Jay Beck Unavailable [phone] Alka Reynoso MD Unavailable Unavailabl e Allergies [...] Risk Notes Problem Fear of medical treatment (278014160) Fear of injections and transfusions (F40.231) Active confirmed Problem Localized, primary osteoarthritis of the pelvic region and thigh (782807460) Unilateral primary osteoarthritis, left hip (M16.12) Active confirmed Problem Cervical spondylosis without myelopathy (125328022) Spondylosis without myelopathy or radiculopathy, cervical region (M47.812) Active confirmed Plan Of Treatment Pending Test Test Name Order Date X ray : Hip, left 05/02/2023 Insurance Providers Payer Name Payer Address Payer Phone Subscriber Number Group Number Insured Name Patient Relationship to Insured Coverage Start Date Coverage End Date [employer] Medicare Advantage [address] [address] [place] [address] [id number] Kai Stewart Self - patient is the insured Medical (General) History Medical History History ICD Code Arthritis: Yes Congestive Heart Failure: Yes Diabetes, type I: Yes High blood pressure: Yes Surgical History Surgery Date(Month/Year)
--- OUTSIDE RECORDS SUMMARY | 2025-01-11 10:23 | XMS_ITS | Encounter Summary ---
Author Organization [employer] Address [address] [place] [address] Care Team Providers Care Assessment Consultant Name Role Phone Unavailable Primary Care Provider Unavailabl e Encounter Details Date Type Department Care Team (Late st Contact Info) Description 12/14/1999 Outpatient Historical Division of [facility] [address] [facility] [address] [address] (Excluded Provider) [place] [address] [facility] [address] [place] [address] Social History Tobacco Use Types Packs/Day Years Used Date Smoking Tobacco: Never Assessed Sex and Gender Information Value Date Recorded Sex Assigned at Not on file 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
--- OUTSIDE RECORDS SUMMARY | 2025-01-11 10:23 | XMS_ITS | Encounter Summary ---
Author Organization [employer] Address 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
--- OUTSIDE RECORDS SUMMARY | 2025-01-11 10:23 | XMS_ITS | Referral Summary ---
Author Organization [facility] [address] [facility] Address [address] [place] [address] Care Team Providers Care Patternmaker Helper Name Role Phone Jay Jay Reynoso MD Unavailable [phone] Jay Jay Reynoso MD Primary Care Provider [phone] Encounters Date Type Department Care Team Description 01/09/2025 2:00 PM CDT Office Visit [facility] Cardiology [address] [place] [address] Riccardo Chang MD Coronary artery disease of [place] artery of [place] heart with stable angina pectoris (Primary Dx); [...] (100 mg total) by mouth daily Active [id number] wy-Umqqpiwm-y lgal 27 mg iron-1.13 mg-581.92 mg capsule [...] (06/22/2019): Added automatically from request for surgery [id number] Chest pain 06/22/2019 Overview (06/22/2019): Added automatically from request for surgery [id number] Social History Tobacco Use Types Packs/Day Years [...] week 08/03/2023 How often do you attend [facility] or denominational services? 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 Gender Identity Not on file Sexual Orientation [...] on file Medical Devices Implanted Type Area Clinical Dietitian Device Identifier Shelf Expiration Date Model / Serial / Lot [employer] [id number] Device Closure Angio-Seal Vip [place]-Plus Polyglyd L70 Cm Od6 Fr Odsec.035 In Vascular - [id number] Implanted:Qty: 1 on 07/19/2019 by Riccardo Chang MD at [facility] [employer] 01/22/2020 [id number] / / [employer] Device Closure Vascade Od5 Fr Femoral Artery [id number] - [id number] Implanted:Qty: 1 on 11/04/2022 by Riccardo Chang MD at [facility] [id number] / / [employer]hew[employer]Rich[employer]/ Ortho R3 56mm 3 Hole Hip Standard Shell Acetabular [id number] - [id number] Implanted:Qty: 1 on 08/02/2023 by Galileo Klein MD at [facility] Left: Hip [employer]hew[employer]Rich[employer]/Or tho [id number] 09/16/2031 [id number] / / [id number] [employer]/ Ortho R3 56mm 40mm 20d Liner Acetabular Xlpe [id number] - [id number] Implanted:Qty: 1 on 08/02/2023 by Galileo Klein MD at [facility] Left: Hip [employer]Rich[employer]/Or tho [id number] 05/01/2033 [id number] / / [id number] [employer]/ Ortho Polarstem Cementless Hip 6 Standard Stem Femoral Titanium Mcintosh [id number] - [id number] Implanted:Qty: 1 on 08/02/2023 by Galileo Klein MD at [facility] Left: Hip [employer]Rich[employer]/Or tho [id number] 04/15/2029 [id number] / / [id number] [employer]Rich[employer]/ Ortho 40mm Modular Hip Head Femoral Oxinium [id number] - [id number] Implanted:Qty: 1 on 08/02/2023 by Galileo Klein MD at [facility] Left: Hip [employer]Rich[employer]/Or tho [id number] 04/29/2033 [id number] / / [id number] [employer]/ Ortho Modular Neck Hip +0mm 12/14 Taper Sleeve Femoral Titanium [id number] - [id number] Implanted:Qty: 1 on 08/02/2023 by Galileo Klein MD at [facility] Left: Hip [employer]Rich[employer]/Or tho [id number] 04/25/2033 [id number] / / [id number] Procedures Procedure Name Priority Date/Time Associated Diagnosis Comments POCT LIPID PANEL Routine 01/09/2025 1:48 PM CDT Coronary artery disease of [place] artery of [place] heart with stable angina pectoris EGFR Routine 08/03/2023 2:48 AM CDT from Last 3 Months or Most Recently Relevant to Health Maintenance Results * POCT lipid panel (01/09/2025 1:48 PM CDT) Pathologist [facility] Cholesterol, POC 149 mg/dL HDL, POC 44 mg/dL Triglycerides, POC 88 mg/dL LDL Cholesterol POC 87 mg/dL Chol/HDL Ratio, POC 2.0 Non-HDL Cholesterol, POC 105 mg/dL Cholesterol Total, POC 149 mg/dL Capillary blood 01/09/2025 1 :48 PM CDT us Riccardo Chang MD POINT OF CARE TEST ORDERABLES Fi nal Result * eGFR (08/03/2023 2:48 AM CDT) Pathologist [facility] eGFR 77 mL/min/1. 73 m2 Comment: Interpretive [...] MD LAB BLOOD ORDERABLES Final Res ult [facility] [address] [facility] Department of Laboratories [place], [place] [id number] from Last 3 Months or Most Recently Relevant to Health Maintenance Insurance [employer] Advance Directives For more information, please contact: [phone] * Full Code (Latest Code Status on File) Date Activated Date Inactivated Comments 08/02/2023 9:03 AM 08/03/2023 8:37 PM Care Teams Patternmaker Helper Relationship Specialty Start Date End Date Jay Jay Reynoso MD PCP - General Family Medicine 09/08/20 Jay Jay Reynoso MD Family Medicine 11/29/19
--- OUTSIDE RECORDS SUMMARY | 2025-01-11 10:23 | XMS_ITS ---
Author Organization [facility] Address [address] [place] [address] Care Team Providers Care Cashier Assistant Name Role Phone Jay Jay Reynoso Primary Care Provider Unavaila Jay Jay Knig Unavailable [phone] Alka Reynoso MD Unavailable Unavailabl e REASON FOR VISIT D[facility] - [facility] - Schedule Encounters Encounter Location Date Provider Diagnosis -[facility] [address] [facility] [address] [place] [address] 10/03/2023 Jay Jay Howard Plan Of Treatment No Information Progress Notes * ASHLEY GabyOB:1944 (78 yo M)Acc No.[id number]:10/03/2023 Patient: Kai TAVAREZ :1945 A ge:78 Y S ex:Male [place], [address] * true * Date: Generated for Nedrai gila/Falevig/eTransmitting on: 0 01/11/2025 10:22 AM CDT
--- OUTSIDE RECORDS SUMMARY | 2025-01-11 10:23 | XMS_ITS ---
Author Organization [facility] Address [address] [place] [address] Care Team Providers Care Marketing Lead Name Role Phone Jay Jay Reynoso Primary Care Provider Unavaila Jay Jay King Unavailable [phone] Alka Reynoso MD Unavailable Unavailabl e Allergies [...] Provider Diagnosis -[facility] [address] [place] [address] 11/30/2023 Jay Jay Shepardjoel Spondylosis without myelopathy [...] the previous radiofrequency ablation back in March [place] like continued anemia. He has failed conservative [...] the previous radiofrequency ablation back in March [place] like continued anemia. He has failed conservative [...] on how to reach the clinic or concrete laborer physician at anytime for questions or complaints., CPT- 99491 (RT), 63271 (RT), ICD-10- M47.812 cervical spondylosis, Estimated blood loss 0 ml Progress Notes * Gaby RAMIREZOB:1944 (78 yo M)Acc No.[id number]:11/30/2023 Progress Note Patient: Kai TAVAREZ Provider: Mariel Howard MD :1945 A ge:78 Y S ex:Male Date:11/30/2023 Address:[facility] [place] [address] Pcp:Jay Jay Reynoso Subjective: * Chief Complaints: [...] on how to reach the clinic or concrete laborer physician at anytime for questions or complaints., CPT- 92698 (RT), 49117 (RT), ICD-10- M47.812 cervical spondylosis, Estimated blood loss 0 ml. * Procedure Codes: 6 4633 DESTROY CERV/THOR FACET [id number] DESTROY C/TH FACET JNT [id number] INJECTION MIDAZOLAM HCL PER 1 [id number] MOD SED SAME PHYS/QHP 5/>YRS * Follow Up: 4 Weeks (Reason: RFA follow up) * Images: Billing Information: * Visit Code: * Procedure Codes: 05038 DESTROY CERV/THOR FACET JNT. 96721 DESTROY C/TH FACET JNT ADDL. J2250 INJECTION MIDAZOLAM HCL PER 1 MG. 87374 MOD SED SAME PHYS/QHP 5/>YRS. * [facility] Sign off status: Completed true * Provider: Mariel Howard MD Date: 0 11/30/2023 Generated for Printi ng/Falevig/eTransmitting on: 0 01/11/2025 10:23 AM CDT History and Physical Notes * [...]
--- OUTSIDE RECORDS SUMMARY | 2025-01-11 10:23 | XMS_ITS | Clinical Summary ---
Author Organization [facility] [address] [facility] Address [address] [place] [address] Care Team Providers Care Glass Blower Helper Name Role Phone Jay Jay Reynoso MD Unavailable [phone] Jay Jay Reynoso MD Primary Care Provider [phone] Allergies Active Allergy Reactions Criticality Noted Date [...] (100 mg total) by mouth daily Active hutnnmsl26-jm td-Bfvtceyq-w lgal 27 mg iron-1.13 mg-581.92 mg capsule [...] (06/22/2019): Added automatically from request for surgery [id number] Chest pain 06/22/2019 Overview (06/22/2019): Added automatically from request for surgery [id number] Encounters Date Type Department Care Team Description 01/09/2025 2:00 PM CDT Office Visit [facility] Cardiology [address] [place] [address] Riccardo Chang MD Coronary artery disease of [place] artery of [place] heart with stable angina pectoris (Primary Dx); [...] often do you attend chur ch or sabianist services? 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 [employer] 01/22/2020 [id number] / / [employer] Device Closure [place] Od5 Fr Femoral Artery [id number] - [id number] Implanted:Qty: 1 on 11/04/2022 by Riccardo Chang MD at [facility] [id number] [id number] / / Giron [employer] Nephew/Richco/ Ortho R3 56mm 3 Hole Hip Standard Shell Acetabular [id number] - [id number] Implanted:Qty: 1 on 08/02/2023 by Galileo Klein MD at [facility] Left: Hip [employer]hew/Richco/Or tho [id number] 09/16/2031 [id number] / / [id number] G[employer]hew/Richco/ Ortho R3 56mm 40mm 20d Liner Acetabular Xlpe [id number] - [id number] Implanted:Qty: 1 on 08/02/2023 by Galileo Klein MD at [facility] Left: Hip [employer]hew/Richco/Or tho [id number] 05/01/2033 [id number] / / [id number] G[employer]hew/Richco/ Ortho Polarstem Cementless Hip 6 Standard Stem Femoral Titanium Mcintosh [id number] - [id number] Implanted:Qty: 1 on 08/02/2023 by Galileo Klein MD at [facility] Left: Hip [employer]hew/Richco/Or tho [id number] 04/15/2029 [id number] / / [id number] G[employer]hew/Richco/ Ortho 40mm Modular Hip Head Femoral Oxinium [id number] - [id number] Implanted:Qty: 1 on 08/02/2023 by Galileo Klein MD at [facility] Left: Hip [employer]hew/Richco/Or tho [id number] 04/29/2033 [id number] / / [id number] [employer]hew[employer]Richco/ Ortho Modular Neck Hip +0mm Taper Sleeve Femoral Titanium [id number] - [id number] Implanted:Qty: 1 on 08/02/2023 by Galileo Klein MD at [facility] Left: Hip [employer]hew[employer]Richco/Or tho [id number] 04/25/2033 [id number] / / [id number] Procedures Procedure Name Priority Date/Time Associated Diagnosis Comments POCT LIPID PANEL Routine 01/09/2025 1:48 PM CDT Coronary artery disease of [place] artery of [place] heart with stable angina pectoris EGFR Routine [...] LAB BLOOD ORDERABLES Final Res ult [facility] Department [place] [address] from Last 3 Months or Most Recently Relevant to Health Maintenance Insurance [facility] MEDICARE ADVANTAGE [facility] MEDICARE ADVANTAGE Advance Directives For more information, please contact: [phone] * Full Code (Latest Code Status on File) Date Activated Date Inactivated Comments 08/02/2023 9:03 AM 08/03/2023 8:37 PM Care Teams Glass Blower Helper Relationship Specialty Start Date End Date Jay Jay Reyonso MD PCP - General Family Medicine 09/08/20 Jay Jay Reynoso MD Family Medicine 11/29/19
--- OUTSIDE RECORDS SUMMARY | 2025-01-11 10:23 | XMS_ITS | Encounter Summary ---
Author Organization [employer] Address [address] [place] [address] Care Team Providers Care Steel Chipper Name Role Phone Unavailable Primary Care Provider Unavailabl e Encounter Details Date Type Department Care Team (Late st Contact Info) Description 01/26/2000 Outpatient Historical Division of [facility] [address] [facility] [address] [address] (Excluded Provider) [place] [address] [address] [facility] [address] [place] [address] Social History Tobacco Use Types Packs/Day Years Used Date Smoking Tobacco: Never Assessed Sex and Gender Information Value Date Recorded Sex Assigned at Not on file 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
--- OUTSIDE RECORDS SUMMARY | 2025-01-11 10:24 | XMS_ITS | Encounter Summary ---
Author Organization [employer] Address [address] [place] [address] Care Team Providers Care Sharemilker Name Role Phone Unavailable Primary Care Provider Unavailabl e Encounter Details Date Type Department Care Team (Late st Contact Info) Description 11/13/1999 Outpatient Historical Division [facility] [address] [facility] [address] [address] (Excluded Provider) [place] [address] [address] [facility] [address] [place] [address] Social History Tobacco Use Types Packs/Day Years Used Date Smoking Tobacco: Never Assessed Sex and Gender Information Value Date Recorded Sex Assigned at Not on file 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
--- OUTSIDE RECORDS SUMMARY | 2025-01-11 10:24 | XMS_ITS | Encounter Summary ---
Author Organization [employer] Address 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
--- OUTSIDE RECORDS SUMMARY | 2025-01-11 10:24 | XMS_ITS | Encounter Summary ---
Author Organization [employer] Address 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
--- OUTSIDE RECORDS SUMMARY | 2025-01-11 10:24 | XMS_ITS | Clinical Summary ---
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
--- OUTSIDE RECORDS SUMMARY | 2025-01-11 10:24 | XMS_ITS ---
Author Organization [facility] Address [address] [facility] [address] [place] [address] Care Team Providers Care Application Software Developer Name Role Phone Jay Jay Reynoso Primary Care Provider Unavaila Jay Jay King Unavailable [phone] Alka Reynoso MD Unavailable Unavailabl e REASON [...] Provider Diagnosis -[facility] [address] [facility] [address] [place] [address] 12/28/2023 Jay Jay Howard Plan Of Treatment No Information Progress Notes * Gaby RAMIREZOB:1944 (79 yo M)Acc No.[id number]:12/28/2023 Progress Note Patient: Mariel REYES Kai Provider: Mariel Howard MD :1945 A ge:78 Y S ex:Male Date:12/28/2023 Address:[address] [place] [address] [id number] Pcp:Jay Jay Reynoso Subjective: * Chief Complaints: [...] Electronic signature of Blue Howard MD on 01/11/2025 at 10:23 AM CDT Sign off status: Pending * Provider: Mariel Howard MD Date: 12/28/2023 Generated for Cody uriostegui/Ibrahima/Crystal on: 01/11/2025 10:23 AM CDT
[2025-01-11 13:53] LABS: Hemoglobin A1C 7.2 % (<5.7)
[2025-01-11 13:56] LABS: Alanine Aminotransferase 15 U/L (6-50); Albumin Level 4.2 g/dL (3.5-5.1); Alkaline Phosphatase 62 U/L (38-126); Anion Gap 9 mmol/L (4-12); Aspartate Amino Transferase 38 U/L (17-59); Bilirubin,Total 0.7 mg/dL (0.2-1.3); Blood Urea Nitrogen 26 mg/dL (9-20); Calcium 9.5 mg/dL (8.4-10.2); Carbon Dioxide 26 mmol/L (22-30); Chloride 104 mmol/L (98-107); Estimated Glomerular Filt Rate 57; Glucose 162 mg/dL (65-110); Potassium 4.7 mmol/L (3.4-5.0); Sodium 139 mmol/L (137-145)
== END 2025-01-11 09:23 | disposition home or self-care (01) ==
LOC: ANHGOSHLAB 09:23
PROVIDERS: PCP Family Medicine; Visit Provider Nurse Practitioner Family
DX: E11.65 Type 2 diabetes mellitus with hyperglycemia (principal)
CPT/HCPCS: 36415; 80053; 83036

== ENCOUNTER 2025-03-10 14:47 | Inpatient (IN) | payer MEDICARE, SELFPAY ==
--- NOTE | ~2025-03-10 | CT_ITS ---
CLINICAL INDICATION: Lower abdominal pain COMPARISON: 10/12/2022. TECHNIQUE: Multiple contiguous axial images of the abdomen and pelvis were performed following the ad ministration of with 100 mL Omnipaque-350 intravenous contrast The dose-length product (DLP) was 337.14 mGy-cm. Automated exposure control and iterative reconstruction technique were employed. FINDINGS/OBSERVATIONS: Visualized lower thorax: The bilateral lung bases are clear. The heart is of normal size, without pericardial effusion. Liver: The liver demonstrates homogeneous enhancement and is enlarged measuring 20 cm in longitudinal dimens ion. Gallbladder and biliary system: The gallbladder is only minimally distended, and otherwise unremarkable. Pancreas: The pancreas enhances homogeneously without ductal dilatation. Spleen: Punctate calcifications identified within the splenic parenchyma, suggesting prior granulomat ous disease. The remainder of the spleen otherwise enhances homogeneously and is not enlarged. Kidneys: Subcentimeter focus of fluid attenuation within the posterior upper pole of the left kidney, statistically a cyst. The remainder of the bilateral kidneys otherwise enhance symmetrically without hydronephrosis or michelle l calculi. Adrenal glands: Unremarkable. Gastrointestinal tract: Colonic diverticulosis without surrounding inflammatory change. Fecal stasis within the colon. Appendix: The appendix is not definitively visualized. However, no pericecal inflammatory change is identified suggest the presence of acute appendicitis. Vasculature: Densely calcified atherosclerotic disease Lymph nodes: No pathologically enlarged or morphologically suspicious lymph nodes within the retroperitoneum or at the root of the mesentery. Pelvic structures: The distended bladder is irregular in shape with significant surrounding inflammatory change. Dense opacification of the central portion of the bladder. A Webber catheter is present, in good position within the bladder, despite its distention. The prostate gland is poorly visualized and there acute streak metallic artifact from the patient's l eft hip prosthetic. Body wall and musculoskeletal: Small fat-containing umbilical hernia. Age-appropriate degenerative disease within the lumbosacral spine IMPRESSION: Findings within the bladder consistent with this patient's presentation, with a focus of increased at tenuation centrally within the bladder, likely representing hematoma, as detailed above. Reviewed, dictated and finalized at location A. IMPRESSION: Findings within the bladder consistent with this patient's presentation, with a focus of increased attenuation centrally within the bladder, likely representi ng hematoma, as detailed above.
--- OUTSIDE RECORDS SUMMARY | 2025-03-10 14:51 | XMS_ITS | Encounter Summary ---
Author Organization [employer] Address [address] [place] [address] Care Team Providers Care Career Technical Supervisor Name Role Phone Unavailable Primary Care Provider Unavailabl e Encounter Details Date Type Department Care Team (Late st Contact Info) Description 01/26/2000 Outpatient Historical Division of Neurology [address] [address] [address] (Excluded Provider) [place] [address] [address] [facility] [address] [place] [address] Social History Tobacco Use Types Packs/Day Years Used Date Smoking Tobacco: Never Assessed Sex and Gender Information Value Date Recorded Sex Assigned at Not on file 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
--- OUTSIDE RECORDS SUMMARY | 2025-03-10 14:51 | XMS_ITS | Encounter Summary ---
Author Organization [employer] Address [address] [place] [address] Care Team Providers Care Eviction Specialist Name Role Phone Unavailable Primary Care Provider Unavailabl e Encounter Details Date Type Department Care Team (Late st Contact Info) Description 12/14/1999 Outpatient Historical Division of Neurology [address] [facility] [address] [address] (Excluded Provider) [place] [address] [address] [facility] [address] [place] [address] Social History Tobacco Use Types Packs/Day Years Used Date Smoking Tobacco: Never Assessed Sex and Gender Information Value Date Recorded Sex Assigned at Not on file 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
--- OUTSIDE RECORDS SUMMARY | 2025-03-10 14:51 | XMS_ITS | Clinical Summary ---
Author Organization [facility] [employer] Address [address] [place] [address] Care Team Providers Care Non Destructive Testing Specialist Name Role Phone Jay Jay Reynoso MD Primary Care Provider [phone] Source Comments [facility] [employer],non-[facility] Affiliates and Associated Physician Practices is amultiple site organization consisting of ambulatory clinics and hospital sitesin [place], [place], [place] and [place]. This disclosure is being madepursuant to the Care Everywhere program and may not contain all information available regarding this patient. Last updated 18.[facility] [employer] Allergies Active Allergy Reactions Criticality Noted Date Comments Penicillins Rash Low 03/29/2012 As teen Medications * Be aware that medications may not be up to date on this document. Alwaysverify current medications with the patient. levothyroxine (SYNTHROID) 100 MCG tablet Take 1 [...] tablet TK 1 T PO D 1 6 Active metFORMIN (GLUCOPHAGE) 1000 MG tablet TK 1 T PO BID 2 6 Active lisinopril (PRINIVIL; ZESTRIL) 2.5 MG tablet 6 Active fluticasone propionate (FLONASE) 50 MCG/ACT nasal spray ADMINISTER 2 SPRAYS IEN D 3 6 Active hydrOXYzine hcl (ATARAX) 25 MG tablet Take 1 tablet by mouth 4 times daily as needed for Itching 30 tablet 8 Active famotidine (PEPCID) 20 MG tablet Take 1 tablet by mouth 2 times daily 20 tablet 8 Active isosorbide mononitrate CR 24hr (IMDUR) 30 MG tablet 1 Active B Complex Vitamins CAPS Take 1 capsule by mouth once daily Active naproxen (Naprosyn) 500 MG tablet Take 1 (one) tablet by mouth 2 times daily 20 tablet 3 Active Active Problems No known active problems [...] at Not on file Legal Sex Male 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 Gender Identity Male 04/11/2021 8:06 AM CDT Sexual Orientation Not on file Last Filed Vital Signs Vital Sign Reading Time Taken Comments Blood Pressure 107/71 12/22/2022 2:45 PM BOAT FUELER Pulse 72 12/22/2022 2:45 PM BOAT FUELER Temperature 36.8 C (98.2 F) 12/22/2022 2:45 PM BOAT FUELER Respiratory Rate 16 12/22/2022 2:45 PM BOAT FUELER Oxygen Saturation 98% 12/22/2022 2:45 PM BOAT FUELER Inhaled Oxygen Concentration - - Weight 68 kg (150 lb) 12/22/2022 10:19 AM BOAT FUELER Height 165.1 cm (5' 5) 12/22/2022 9:57 AM BOAT FUELER Body Mass Index 24.96 12/22/2022 9:57 AM BOAT FUELER Plan of Treatment Health Maintenance Due Date Last Done Comments DTAP/TDAP/TD VACCINES (1 - Tdap) 1963 PNEUMOCOCCAL VACCINE 50+ (1 of 1 - PCV) 1994 ZOSTER VACCINE (1 of 2) 1994 Respiratory Syncytial Virus (RSV) Vaccine Pt: or over 60 yrs (1 - 1-dose 75+ series) 2019 COVID-19 VACCINE (4 - 2023-2 5 season) 2024 08/23/2021, 01/15/2021, 12/25/2020 DEPRESSION SCREENING 10/24/2024 MEDICARE AWV CALENDAR YEAR 2024 INFLUENZA VACCINE (Season Ended) 2025 09/17/2022 HEPATITIS B VACCINE Aged Out No longe [...] on patient's age to complete this topic Insurance [address] [place], [place] [id number] [place] [address] MEDICARE ADV [facility] MANAGED MEDICARE ADV SELF PAY NO INSURANCE Member Subscriber Plan / Payer (Ef fective for All Dates) Name:AshleyDarien perez Member ID:Not on file Relation to Subscriber:Not on file Name:DARIEN RAMIREZ Subscriber ID:Not on file (Home) Address: [address] [place] [address] [place] [address] Payer ID:Not on file Group ID:Not on file Type:Self Pay Address: [place], [place] SELF PAY NO INSURANCE Member Subscriber Plan / Payer (Ef fective for All Dates) Name:AshleyDarien Member ID:Not on file Relation to Subscriber:Not on file Name:ASHLEYDARIEN Subscriber ID:Not on file Address: [address] [place] [address] Payer ID:Not on file Group ID:Not on file Type:Self Pay Address: [facility] MANAGED MEDICARE ADV SELF PAY NO INSURANCE Member Subscriber Plan / Payer (Ef fective for All Dates) Name:Darien Ramirez Member ID:Not on file Relation to Subscriber:Not on file Name:DARIEN RAMIREZ Subscriber ID:Not on file Address: [address] [place] [address] Payer ID:Not on file Group ID:Not on file Type:Self Pay Address: [facility] MANAGED MEDICARE ADV SELF PAY NO INSURANCE Member Subscriber Plan / Payer (Ef fective for All Dates) Name:Darien Ramirez Member ID:Not on file Relation to Subscriber:Not on file Name:DARIEN RAMIREZ Subscriber ID:Not on file Address: [address] [place] [address] Payer ID:Not on file Group ID:Not on file Type:Self Pay Address: [facility] MANAGED MEDICARE ADV Care Teams Non Destructive Testing Specialist Relationship Specialty Start Date End Date Jay Jay Reynoso MD [facility] [place] [address] PCP - General 03/29/12
--- OUTSIDE RECORDS SUMMARY | 2025-03-10 14:51 | XMS_ITS | Encounter Summary ---
Author Organization [employer] Address 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
--- OUTSIDE RECORDS SUMMARY | 2025-03-10 14:51 | XMS_ITS | Clinical Summary ---
Author Organization [facility] [address] [facility] Address [address] [place] [address] Care Team Providers Care Crane Helper Name Role Phone Jay Jay Reynoso MD Unavailable [phone] Jay Jay Reynoso MD Primary Care Provider [phone] Allergies Active Allergy Reactions Criticality Noted Date [...] VERIO strip USE ONCE D UTD 3 07/21/ 019 Active cholecalcifero l (VITAMIN D-3) 25 mcg (1,000 unit) tablet Take 1 tablet (1,000 Units total) by mouth daily Active omega-3/dha/ep a/dpa/fish oil (OMEGA-3 2100 ORAL) Take by mouth daily Active coenzyme Q10 100 mg capsule Take 1 capsule (100 mg total) by mouth daily Active pnvnjkac89-izu d-Nrxdjdji-jqu al 27 mg iron-1.13 mg-581.92 mg capsule Take by mouth Active UNABLE TO FIND Take 1 each by mouth daily Stress Relief Active ibuprofen (ADVIL,MOTRIN) 200 mg tab/cap Take by mouth every 6 (six) hours as needed for pain Active calcium carbonate (OS-VIDAL) 1,500 mg (600 mg elemental) tablet Take 1 tablet (1,500 mg total) by mouth 2 (two) times a day Active ferrous sulfate ER 324 mg (65 mg iron) EC tabletIndicati ons:Iron Deficiency Anemia Take 65 mg by mouth 3 (three) times a day Active mupirocin (BACTROBAN) 2 % ointment Apply topically 3 (three) times a day X 5 days Active aspirin 81 mg enteric coated tabletIndicati ons:Deep Vein Thrombosis Prevention Take 1 tablet (81 [...] tablets by mouth every morning 023 Active Entresto 24-26 mg tablet TAKE 1 [...] daily 30 tablet 11 025 2025 Active isosorbide mononitrate ER (IMDUR) 60 mg 24 hr tablet TAKE 1 TABLET(60 MG) BY MOUTH DAILY 90 tablet 3 025 Active metoprolol (LOPRESSOR) 50 mg tablet Take 1/2 tablet twice daily 019 2020 Discontinued terazosin (HYTRIN) 10 mg capsule 019 2020 Discontinued Active Problems Problem Noted Date Diagnosed Date Status post total hip replacement, left 08/02/20 23 CAD (coronary artery disease) 07/11/2019 Hx of CABG 07/11/2019 Essential hypertension 07/11/2019 Diabetes mellitus type II, non insulin dependent 07/11/2019 Hyperlipidemia 07/11/2019 Abnormal cardiovascular stress test 06/22/2019 Overview (06/22/2019): Added automatically from request for surgery [id number] Chest pain 06/22/2019 Overview (06/22/2019): Added automatically from request for surgery [id number] Encounters Date Type Department Care Team Description 01/09/2025 2:00 PM CDT Office Visit [facility] Cardiology [address] [place] [address] Riccardo Chang MD Coronary artery disease of [place] artery of [place] heart with stable angina pectoris (Primary Dx); [...] week 08/03/2023 How often do you attend [facility] or scientology services? 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 Gender Identity Not on file Sexual Orientation [...] 1:54 PM CDT Height 167.6 cm (5' 6) 01/09/2025 1:54 PM CDT Body Mass Index [...] 2023-2 5 season) 2024 08/23/2021, 01/15/2021, 12/25/2020 Fall Risk Assessment 08/03/2024 08/03/2023, 07/12/2022, 07/06/2021, Additional history exists eGFR 08/03/2024 08/03/2023, 11/24, 12/21/2020, Additional history exists Influenza Vaccine (Season Ended) 2025 09/17/20, 09/25/2018 Lipid Panel 01/09/2026 01/09/2025, 07/24, 09/29/2022, Additional history exists Medical Devices Implanted Type Area Real Estate Loan Processor Device Identifier Shelf Expiration Date Model / Serial / Lot [facility] [id number] Device Closure Angio-Seal Vip Bondek-Plus Polyglyd L70 Cm Od6 Fr Odsec.035 In Vascular - [id number] Implanted:Qty: 1 on 07/19/2019 by Riccardo Chang MD at [facility] [employer] 01/22/2020 [id number] / / [employer] Inc Device Closure Vascade Od5 Fr Femoral Artery [id number]-[id number] - [id number] Implanted:Qty: 1 on 11/04/2022 by Riccardo Chang MD at [facility] [employer] Inc [id number]-0 5U / / Giron & Nephew/Richco/ Ortho R3 56mm 3 Hole Hip Standard Shell Acetabular [id number] - [id number] Implanted:Qty: 1 on 08/02/2023 by Galileo Klein MD at [facility] Left: Hip Giron [employer] Nephew/Richco/Or tho [id number] 09/16/2031 [id number] / / [id number] Giron & Nephew/Richco/ Ortho R3 56mm 40mm 20d Liner Acetabular Xlpe [id number] - [id number] Implanted:Qty: 1 on 08/02/2023 by Galileo Klein MD at [facility] Left: Hip Giron [employer] Nephew/Richco/Or tho [id number] 05/01/2033 [id number] / / [id number] Giron [employer] Nephew/Richco/ Ortho Polarstem Cementless Hip 6 Standard Stem Femoral Titanium Mcintosh [id number] - [id number] Implanted:Qty: 1 on 08/02/2023 by Galileo Klein MD at [facility] Left: Hip Giron [employer] Nephew/Richco/Or tho [id number] 04/15/2029 [id number] / / [id number] Giron [employer] Nephew/Richco/ Ortho 40mm Modular Hip Head Femoral Oxinium [id number] - [id number] Implanted:Qty: 1 on 08/02/2023 by Galileo Klein MD at [facility] Left: Hip Giron [employer] Nephew/Richco/Or tho [id number] 04/29/2033 [id number] / / [id number] Giron & Nephew/Richco/ Ortho Modular Neck Hip +0mm 12/14 Taper Sleeve Femoral Titanium [id number] - [id number] Implanted:Qty: 1 on 08/02/2023 by Galileo Klein MD at [facility] Left: Hip Giron [employer] Nephew/Richco/Or tho [id number] 04/25/2033 [id number] / / [id number] Procedures Procedure Name Priority Date/Time Associated Diagnosis Comments POCT LIPID PANEL Routine 01/09/2025 1:48 PM CDT Coronary artery disease of [place] artery of [place] heart with stable angina pectoris EGFR Routine [...] MD LAB BLOOD ORDERABLES Final Res ult [facility] [address] [place] [address] from Last 3 Months or Most Recently Relevant to Health Maintenance Insurance [place] [id number] Advance Directives For more information, please contact: [phone] * Full Code (Latest Code Status on File) Date Activated Date Inactivated Comments 08/02/2023 9:03 AM 08/03/2023 8:37 PM Care Teams Crane Helper Relationship Specialty Start Date End Date Jay Jay Reynoso MD PCP - General Family Medicine 09/08/20 Jay Jay Reynoso MD Family Medicine 11/29/19
--- OUTSIDE RECORDS SUMMARY | 2025-03-10 14:51 | XMS_ITS | Patient Health Record ---
Author Organization [facility] Address [address] [place] [address] Care Team Providers Care Medical Concierge Name Role Phone Jay Jay Reynoso Primary Care Provider Jay Jay Beck Unavailable [phone] Alka Reynoso MD Unavailable Unavailabl e Allergies [...] Risk Notes Problem Fear of medical treatment (153664501) Fear of injections and transfusions (F40.231) Active confirmed Problem Localized, primary osteoarthritis of the pelvic region and thigh (973605338) Unilateral primary osteoarthritis, left hip (M16.12) Active confirmed Problem Cervical spondylosis without myelopathy (420902100) Spondylosis without myelopathy or radiculopathy, cervical region (M47.812) Active confirmed Plan Of Treatment Pending Test Test Name Order Date X ray : Hip, left 05/02/2023 Insurance Providers Payer Name Payer Address Payer Phone Subscriber Number Group Number Insured Name Patient Relationship to Insured Coverage Start Date Coverage End Date [employer] Medicare Advantage [address] [address] [place] [address] [id number] Kai Stewart Self - patient is the insured Medical (General) History Medical History History ICD Code Arthritis: Yes Congestive Heart Failure: Yes Diabetes, type I: Yes High blood pressure: Yes Surgical History Surgery Date(Month/Year)
--- OUTSIDE RECORDS SUMMARY | 2025-03-10 14:51 | XMS_ITS | Encounter Summary ---
Author Organization [employer] Address [address] [place] [address] Care Team Providers Care Associate Professor Of Library Science Name Role Phone Unavailable Primary Care Provider Unavailabl e Encounter Details Date Type Department Care Team (Latest Contact Info) Description 12/04/1999 Outpatient Historical [facility] Fabio Sanchez MD [address] [facility] [address] [address] Nerv/musculskel sym NEC (Primary Dx) Social History Tobacco Use Types Packs/Day Years Used Date Smoking Tobacco: Never Assessed Sex and Gender Information Value Date Recorded Sex Assigned at Not on file 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
--- OUTSIDE RECORDS SUMMARY | 2025-03-10 14:51 | XMS_ITS | Encounter Summary ---
Author Organization [facility] Address [address] [place] [address] Phone Care Team Providers Care Floriculturist Name Role Phone Diego Nunez MD Primary Care Provider Jay Jay Reynoso MD Unavailable [phone] Rosibel Rodrigues DPT Unavailable [phone] Jay Jay Reynoso MD Primary Care Provider [phone] Encounter Details Date Type Department Care Team (Late st Contact Info) Description 07/16/2020 Telephone [facility] Physical Therapy [address] [facility] [address] [place] [address] Fidelia Macias B.A. 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 Gender Identity Not on file Sexual Orientation Not on file documented as of this encounter Plan of Treatment Not on file documented as of this encounter Visit Diagnoses Not on filedocumented in this encounter Care Teams Floriculturist Relationship Specialty Start Date End Date Diego Nunez MD [address] [address] PCP - General Internal Medicine 11/29/19 09/07/20 Jay Jay Reynoso MD [address] [facility] [address] [place] [address] PCP - General Family Medicine 09/08/20 Jay Jay Reynoso MD [address] [facility] [address] [place] [address] Family Medicine 11/29/19 Rosibel Rodrigues DPT [address] [facility] [address] [place] [address] Physical Therapist Physical Therapy 06/25/20 09/01/20 documented as of this encounter
--- OUTSIDE RECORDS SUMMARY | 2025-03-10 14:51 | XMS_ITS | Referral Summary ---
Author Organization [facility] [address] [facility] Address [address] [place] [address] Care Team Providers Care Auto Top Mechanic Name Role Phone Jay Jay Reynoso MD Unavailable [phone] Jay Jay Reynoso MD Primary Care Provider [phone] Encounters Date Type Department Care Team Description 01/09/2025 2:00 PM CDT Office Visit [facility] Medical [facility] Cardiology [address] [place] [address] Riccardo Chang MD Coronary artery disease of [place] artery of [place] heart with stable angina pectoris (Primary Dx); [...] USE ONCE D UTD 3 019 Active cholecalcifero l (VITAMIN D-3) 25 mcg (1,000 unit) tablet Take 1 tablet (1,000 Units total) by mouth daily Active omega-3/dha/ep a/dpa/fish oil (OMEGA-3 2100 ORAL) Take by mouth daily Active coenzyme Q10 100 mg capsule Take 1 capsule (100 mg total) by mouth daily Active idozrofx54-vew x-Gfqajsvq-rgs al 27 mg iron-1.13 mg-581.92 mg capsule [...] 2 tablets by mouth every morning Active Entresto 24-26 mg tablet TAKE 1 TABLET BY MOUTH TWICE DAILY 180 tablet [address] (PROTONIX) 20 mg EC tablet Take 1 tablet (20 mg total) by mouth every morning Active ranolazine ER (RANEXA) 500 mg 12 hr tablet Take 1 tablet (500 mg total) by mouth 2 (two) times a day 180 tablet 3 Active carvediloL (COREG) 3.125 mg tablet TAKE 1 TABLET(3.125 MG) BY MOUTH TWICE DAILY WITH MEALS 180 tablet Active atorvastatin (LIPITOR) 40 mg tablet Take [...] (06/22/2019): Added automatically from request for surgery [id number] Chest pain 06/22/2019 Overview (06/22/2019): Added automatically from request for surgery [id number] Social History Tobacco Use Types Packs/Day Years [...] friends, or neighbors? Twice a week 08/03/20 23 How often do you get togethe r with friends or relatives? Three times a week 08/03/2023 How often do you attend chur ch or uatsdin services? 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 [employer] 01/22/2020 [id number] / / Cardiva Medical Inc Device Closure Vascade Od5 Fr Femoral Artery [id number] - [id number] Implanted:Qty: 1 on 11/04/2022 by Riccardo Chang MD at [facility] 700-500DX-0 5U / / Giron & Nephew/Richco/ Ortho R3 56mm 3 Hole Hip Standard Shell Acetabular [id number] - [id number] Implanted:Qty: 1 on 08/02/2023 by Galileo Klein MD at [facility] Left: Hip Giron [employer] Nephew/Richco/Or tho [id number] 09/16/2031 [id number] / / [id number] Giron & Nephew/Richco/ Ortho R3 56mm 40mm 20d Liner Acetabular Xlpe [id number] - [id number] Implanted:Qty: 1 on 08/02/2023 by Galileo Klein MD at [facility] Left: Hip Giron [employer] Nephew/Richco/Or tho [id number] 05/01/2033 [id number] / / [id number] Giron [employer] Nephew/Richco/ Ortho Polarstem Cementless Hip 6 Standard Stem Femoral Titanium Mcintosh [id number] - [id number] Implanted:Qty: 1 on 08/02/2023 by Galiloe Klein MD at [facility] Left: Hip Giron & Nephew/Richco/Or tho [id number] 04/15/2029 [id number] / / [id number] Giron & Nephew/Richco/ Ortho 40mm Modular Hip Head Femoral Oxinium [id number] - [id number] Implanted:Qty: 1 on 08/02/2023 by Galileo Klein MD at [facility] Left: Hip Giron [employer] Nephew/Richco/Or tho [id number] 04/29/2033 [id number] / / [id number] Giron & Nephew/Richco/ Ortho Modular Neck Hip +0mm 12/14 Taper Sleeve Femoral Titanium [id number] - [id number] Implanted:Qty: 1 on 08/02/2023 by Galileo Klein MD at [facility] Left: Hip Giron [employer] Nephew/Richco/Or tho [id number] 04/25/2033 [id number] / / [id number] Procedures Procedure Name Priority Date/Time Associated Diagnosis Comments POCT LIPID PANEL Routine 01/09/2025 1:48 PM CDT Coronary artery disease of [place] artery of [place]en[place] heart with stable angina pectoris EGFR Routine [...] LAB BLOOD ORDERABLES Final Res ult [facility] [address] [facility] Department [place] [address] from Last 3 Months or Most Recently Relevant to Health Maintenance Insurance Member Subscriber Plan / Payer (Ef fective 2022-Present) Name:Darien Guzman Relation to Subscriber:Self Name:Darien Guzman Payer ID:[id number] (NAIC) Type:[facility] MED[facility] Address: [place] [id number] [facility] MEDICARE ADVANTAGE Advance Directives For more information, please contact: [phone] * Full Code (Latest Code Status on File) Date Activated Date Inactivated Comments 08/02/2023 9:03 AM 08/03/2023 8:37 PM Care Teams Auto Top Mechanic Relationship Specialty Start Date End Date Jay Jay Reynoso MD PCP - General Family Medicine 09/08/20 Jay Jay Reynoso MD Family Medicine 11/29/19
--- OUTSIDE RECORDS SUMMARY | 2025-03-10 14:52 | XMS_ITS | Encounter Summary ---
Author Organization [employer] Address 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
--- OUTSIDE RECORDS SUMMARY | 2025-03-10 14:52 | XMS_ITS | Clinical Summary ---
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
--- OUTSIDE RECORDS SUMMARY | 2025-03-10 14:52 | XMS_ITS ---
Author Organization [facility] Address [address] [facility] [address] [place] [address] Care Team Providers Care Customer Servicer Name Role Phone Jay Jay Reynoso Primary Care Provider Unavaila Jay Jay King Unavailable [phone] Alka Reynoso MD Unavailable Unavailabl e REASON [...] Provider Diagnosis -[facility] [address] [facility] [address] [place] [address] 12/28/2023 Jay Jay Howard Plan Of Treatment No Information Progress Notes * Gaby RAMIREZOB:1944 (79 yo M)Acc No.[id number]:12/28/2023 Progress Note Patient: Mariel REYES Kai Provider: Mariel Howard MD :1945 A ge:78 Y S ex:Male Date:12/28/2023 Address:[address] [place] [address] [id number] Pcp:Jay Jay Reynoos Subjective: * Chief Complaints: * 1 . [...] Electronic signature of Blue Howard MD on 03/10/2025 at 02:51 PM CDT Sign off status: Pending * Provider: Mariel Howard MD Date: 12/28/2023 Generated for Cody uriostegui/Ibrahima/Crystal on: 0 03/10/2025 02:51 PM CDT
--- OUTSIDE RECORDS SUMMARY | 2025-03-10 14:52 | XMS_ITS | Encounter Summary ---
Author Organization [employer] Address [address] [place] [address] Care Team Providers Care Web Knitter Name Role Phone Unavailable Primary Care Provider Unavailabl e Encounter Details Date Type Department Care Team (Late st Contact Info) Description 11/13/1999 Outpatient Historical Division of Neurology [address] [facility] [address] [address] (Excluded Provider) [place] [address] [facility] [address] [place] [address] Social History Tobacco Use Types Packs/Day Years Used Date Smoking Tobacco: Never Assessed Sex and Gender Information Value Date Recorded Sex Assigned at Not on file 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
[2025-03-10 15:05] VITALS: BP 144/65; PULSE 63; RESP 16; TEMP 36.6; O2SAT 100
--- OUTSIDE RECORDS SUMMARY | 2025-03-10 15:24 | XMS_ITS | Referral Summary ---
Author Organization [facility] [address] [facility] Address [address] [place] [address] Care Team Providers Care Material Handler Floorperson Name Role Phone Jay Jay Reynoso MD Unavailable [phone] Jay Jay Reynoso MD Primary Care Provider [phone] Encounters Date Type Department Care Team Description 01/09/2025 2:00 PM CDT Office Visit [facility] Cardiology [address] [place] [address] Riccardo Chang MD Coronary artery disease of [place] artery of [place] heart with stable angina pectoris (Primary Dx); [...] (100 mg total) by mouth daily Active blrllbin09-dtl e-Qgmeagni-whg al 27 mg iron-1.13 mg-581.92 mg capsule [...] (06/22/2019): Added automatically from request for surgery [id number] Chest pain 06/22/2019 Overview (06/22/2019): Added automatically from request for surgery [id number] Social History Tobacco Use Types Packs/Day Years [...] often do you attend chur ch or church services? 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 Gender Identity Not on file Sexual Orientation [...] on file Medical Devices Implanted Type Area Critical Care Nurse Device Identifier Shelf Expiration Date Model / Serial / Lot Nordic Neurostim [id number] Device Closure Angio-Seal Vip Bondek-Plus Polyglyd L70 Cm Od6 Fr Odsec.035 In Vascular - [id number] Implanted:Qty: 1 on 07/19/2019 by Riccardo Chang MD at [facility] Nordic Neurostim/[employer] 01/22/2020 [id number] / / Cardiva Medical Inc Device Closure Vascade Od5 Fr Femoral Artery [id number]-[id number] - [id number] Implanted:Qty: 1 on 11/04/2022 by Riccardo Chang MD at [facility] 700-500DX-0 5U / / Giron & Nephew/Richco/ Ortho R3 56mm 3 Hole Hip Standard Shell Acetabular [id number] - [id number] Implanted:Qty: 1 on 08/02/2023 by Galileo Klein MD at [facility] Left: Hip Giron & Nephew/Richco/Or tho [id number] 09/16/2031 [id number] / / [id number] Giron & Nephew/Richco/ Ortho R3 56mm 40mm 20d Liner Acetabular Xlpe [id number] - [id number] Implanted:Qty: 1 on 08/02/2023 by Galileo Klein MD at [facility] Left: Hip Giron & Nephew/Richco/Or tho [id number] 05/01/2033 [id number] / / [id number] Giron & Nephew/Richco/ Ortho Polarstem Cementless Hip 6 Standard Stem Femoral Titanium Mcintosh [id number] - [id number] Implanted:Qty: 1 on 08/02/2023 by Galileo Klein MD at [facility] Left: Hip Giron & Nephew/Richco/Or tho [id number] 04/15/2029 [id number] / / [id number] Giron & Nephew/Richco/ Ortho 40mm Modular Hip Head Femoral Oxinium [id number] - [id number] Implanted:Qty: 1 on 08/02/2023 by Galileo Klein MD at [facility] Left: Hip Giron & Nephew/Richco/Or tho [id number] 04/29/2033 [id number] / / [id number] Giron & Nephew/Richco/ Ortho Modular Neck Hip +0mm 12/14 Taper Sleeve Femoral Titanium [id number] - [id number] Implanted:Qty: 1 on 08/02/2023 by Galileo Klein MD at [facility] Left: Hip Giron & Nephew/Richco/Or tho [id number] 04/25/2033 [id number] / / [id number] Procedures Procedure Name Priority Date/Time Associated Diagnosis Comments POCT LIPID PANEL Routine 01/09/2025 1:48 PM CDT Coronary artery disease of [place] artery of [place] heart with stable angina pectoris EGFR Routine [...] LAB BLOOD ORDERABLES Final Res ult [facility] [address] [facility] Department [place] [address] from Last 3 Months or Most Recently Relevant to Health Maintenance Insurance Member Subscriber Plan / Payer (Ef fective 2022-Present) Name:Darien Guzman Relation to Subscriber:Self Name:Darien Guzman Payer ID:[id number] (NAIC) Type:[facility] MEDICARE Address: [place] [id number] [facility] [address] Advance Directives For more information, please contact: [phone] * Full Code (Latest Code Status on File) Date Activated Date Inactivated Comments 08/02/2023 9:03 AM 08/03/2023 8:37 PM Care Teams Material Handler Floorperson Relationship Specialty Start Date End Date Jay Jay Reynoso MD PCP - General Family Medicine 09/08/20 Jay Jay Reynoso MD Family Medicine 11/29/19
--- OUTSIDE RECORDS SUMMARY | 2025-03-10 15:24 | XMS_ITS | Encounter Summary ---
Author Organization [employer] Address 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
--- OUTSIDE RECORDS SUMMARY | 2025-03-10 15:24 | XMS_ITS | Encounter Summary ---
Author Organization [employer] Address 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
--- OUTSIDE RECORDS SUMMARY | 2025-03-10 15:24 | XMS_ITS | Encounter Summary ---
Author Organization [facility] Address [address] [place] [address] Phone Care Team Providers Care Building Services Engineer Name Role Phone Diego Nunez MD Primary Care Provider Jay Jay Reynoso MD Unavailable [phone] Rosibel Rodrigues DPT Unavailable [phone] Jay Jay Reynoso MD Primary Care Provider [phone] Encounter Details Date Type Department Care Team (Late st Contact Info) Description 07/16/2020 Telephone [facility] Physical Therapy [address] [facility] [address] [place] [address] Fidelia Macias B.A. 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 Gender Identity Not on file Sexual Orientation Not on file documented as of this encounter Plan of Treatment Not on file documented as of this encounter Visit Diagnoses Not on filedocumented in this encounter Care Teams Building Services Engineer Relationship Specialty Start Date End Date Diego Nunez MD [address] [address] PCP - General Internal Medicine 11/29/19 09/07/20 Jay Jay Reynoso MD [address] [facility] [address] [place] [address] PCP - General Family Medicine 09/08/20 Jay Jay Reynoso MD [address] [facility] [address] [place] [address] Family Medicine 11/29/19 Rosibel Rodrigues DPT [address] [facility] [address] [place] [address] Physical Therapist Physical Therapy 06/25/20 09/01/20 documented as of this encounter
--- OUTSIDE RECORDS SUMMARY | 2025-03-10 15:24 | XMS_ITS | Encounter Summary ---
Author Organization [facility] Address [address] [place] [address] Care Team Providers Care Embossing Clerk Name Role Phone Unavailable Primary Care Provider Unavailabl e Encounter Details Date Type Department Care Team (Late st Contact Info) Description 01/26/2000 Outpatient Historical Division of Neurology [address] [facility] [address] [address] (Excluded Provider) [place] [address] [address] [facility] [address] [place] [address] Social History Tobacco Use Types Packs/Day Years Used Date Smoking Tobacco: Never Assessed Sex and Gender Information Value Date Recorded Sex Assigned at Not on file 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
--- OUTSIDE RECORDS SUMMARY | 2025-03-10 15:24 | XMS_ITS | Clinical Summary ---
Author Organization [facility] [employer] Address [address] [place] [address] Care Team Providers Care Net Developer With Wcf Name Role Phone Jay Jay Reynoso MD Primary Care Provider [phone] Source Comments [facility],non-[facility] Affiliates and Associated Physician Practices is amultiple site organization consisting of ambulatory clinics and hospital sitesin [place], [place], [place] and [place]. This disclosure is being madepursuant to the Care Everywhere program and may not contain all information available regarding this patient. Last updated 18.[facility] [employer] Allergies Active Allergy Reactions Criticality Noted Date [...] on file Legal Sex Male 6:18 AM DIRECTOR EMPLOYMENT Gender Identity Male 04/11/2021 8:06 AM CDT Sexual Orientation Not on file Last Filed Vital Signs Vital Sign Reading Time Taken Comments Blood Pressure 107/71 12/22/2022 2:45 PM DIRECTOR EMPLOYMENT Pulse 72 12/22/2022 2:45 PM DIRECTOR EMPLOYMENT Temperature 36.8 C (98.2 F) 12/22/2022 2:45 PM DIRECTOR EMPLOYMENT Respiratory Rate 16 12/22/2022 2:45 PM DIRECTOR EMPLOYMENT Oxygen Saturation 98% 12/22/2022 2:45 PM DIRECTOR EMPLOYMENT Inhaled Oxygen Concentration - - Weight 68 kg (150 lb) 12/22/2022 10:19 AM DIRECTOR EMPLOYMENT Height 165.1 cm (5' 5) 12/22/2022 9:57 AM DIRECTOR EMPLOYMENT Body Mass Index 24.96 12/22/2022 9:57 AM DIRECTOR EMPLOYMENT Plan of Treatment Health Maintenance Due Date [...] to complete this topic Insurance [address] [place], [place] [id number] [place] [address] MEDICARE ADV [facility] MANAGED MEDICARE ADV SELF PAY NO INSURANCE Member Subscriber Plan / Payer (Ef fective for All Dates) Name:AshleyDarien perez Member ID:Not on file Relation to Subscriber:Not on file Name:DARIEN RAMIREZ Subscriber ID:Not on file (Home) Address: [address] [place] [address] [place] [address] Payer ID:Not on file Group ID:Not on file Type:Self Pay Address: [place] SELF PAY NO INSURANCE Member Subscriber Plan / Payer (Ef fective for All Dates) Name:AshleyDarien Member ID:Not on file Relation to Subscriber:Not on file Name:ASHLEYDARIEN Subscriber ID:Not on file Address: [address] [place] [address] Payer ID:Not on file Group ID:Not on file Type:Self Pay Address: [facility] MANAGED MEDICARE ADV SELF PAY NO INSURANCE Member Subscriber Plan / Payer (Ef fective for All Dates) Name:Darien Ramirez Member ID:Not on file Relation to Subscriber:Not on file Name:DARIEN RAMIREZ Subscriber ID:Not on file Address: [address] [place] [address] Payer ID:Not on file Group ID:Not on file Type:Self Pay Address: [facility] MANAGED MEDICARE ADV SELF PAY NO INSURANCE Member Subscriber Plan / Payer (Ef fective for All Dates) Name:Darien Ramirez Member ID:Not on file Relation to Subscriber:Not on file Name:DARIEN RAMIREZ Subscriber ID:Not on file Address: [address] [place] [address] Payer ID:Not on file Group ID:Not on file Type:Self Pay Address: [facility] MANAGED MEDICARE ADV Care Teams Net Developer With Wcf Relationship Specialty Start Date End Date Jay Jay Reynoso MD [facility] [place] [address] PCP - General 03/29/12
--- OUTSIDE RECORDS SUMMARY | 2025-03-10 15:24 | XMS_ITS | Clinical Summary ---
Author Organization [facility] [address] [facility] Address [address] [place] [address] Care Team Providers Care Conche Loader And Unloader Name Role Phone Jay Jay Reynoso MD Unavailable [phone] Jay Jay Reynoso MD Primary Care Provider [phone] Allergies Active Allergy Reactions Criticality Noted Date [...] (100 mg total) by mouth daily Active osoosbjr39-vbr f-Eujoqxjo-qlg al 27 mg iron-1.13 mg-581.92 mg capsule [...] (06/22/2019): Added automatically from request for surgery [id number] Chest pain 06/22/2019 Overview (06/22/2019): Added automatically from request for surgery [id number] Encounters Date Type Department Care Team Description 01/09/2025 2:00 PM CDT Office Visit [facility] Cardiology [address] [place] [address] Riccardo Chang MD Coronary artery disease of [place] artery of [place] heart with stable angina pectoris (Primary Dx); [...] week 08/03/2023 How often do you attend [facility] or judaism services? 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 Gender Identity Not on file Sexual Orientation [...] history exists Medical Devices Implanted Type Area Supervisor Telephone Information Device Identifier Shelf Expiration Date Model / Serial / Lot [facility] [id number] Device Closure Angio-Seal Vip Bondek-Plus Polyglyd L70 Cm Od6 Fr Odsec.035 In Vascular - [id number] Implanted:Qty: 1 on 07/19/2019 by Riccardo Chang MD at [facility] [employer] 01/22/2020 [id number] / / Cardiva Medical Inc Device Closure Vascade Od5 Fr Femoral Artery [id number] - [id number] Implanted:Qty: 1 on 11/04/2022 by Riccardo Chang MD at [facility] 700-500DX-0 5U / / Giron & Nephew/Richco/ Ortho R3 56mm 3 Hole Hip Standard Shell Acetabular [id number] - [id number] Implanted:Qty: 1 on 08/02/2023 by Galileo Klein MD at [facility] Left: Hip Giron & Nephew/Richco/Or tho [id number] 09/16/2031 [id number] / / [id number] Giron & Nephew/Richco/ Ortho R3 56mm 40mm 20d Liner Acetabular Xlpe [id number] - [id number] Implanted:Qty: 1 on 08/02/2023 by Galileo Klein MD at [facility] Left: Hip Giron & Nephew/Richco/Or tho [id number] 05/01/2033 [id number] / / [id number] Giron & Nephew/Richco/ Ortho Polarstem Cementless Hip 6 Standard Stem Femoral Titanium Mcintosh [id number] - [id number] Implanted:Qty: 1 on 08/02/2023 by Galileo Klein MD at [facility] Left: Hip Giron & Nephew/Richco/Or tho [id number] 04/15/2029 [id number] / / [id number] Giron & Nephew/Richco/ Ortho 40mm Modular Hip Head Femoral Oxinium [id number] - [id number] Implanted:Qty: 1 on 08/02/2023 by Galileo Klein MD at [facility] Left: Hip Giron & Nephew/Richco/Or tho [id number] 04/29/2033 [id number] / / [id number] Giron & Nephew/Richco/ Ortho Modular Neck Hip +0mm 12/14 Taper Sleeve Femoral Titanium [id number] - [id number] Implanted:Qty: 1 on 08/02/2023 by Galileo Klein MD at [facility] Left: Hip Giron & Nephew/Richco/Or tho [id number] 04/25/2033 [id number] / / [id number] Procedures Procedure Name Priority Date/Time Associated Diagnosis Comments POCT LIPID PANEL Routine 01/09/2025 1:48 PM CDT Coronary artery disease of [place] artery of [place] heart with stable angina pectoris EGFR Routine [...] [address] Department [place] [address] from Last 3 Months or Most Recently Relevant to Health Maintenance Insurance [place] [phone] Advance Directives For more information, please contact: [phone] * Full Code (Latest Code Status on File) Date Activated Date Inactivated Comments 08/02/2023 9:03 AM 08/03/2023 8:37 PM Care Teams Conche Loader And Unloader Relationship Specialty Start Date End Date Jay Jay Reynoso MD PCP - General Family Medicine 09/08/20 Jay Jay Reynoso MD Family Medicine 11/29/19
--- OUTSIDE RECORDS SUMMARY | 2025-03-10 15:24 | XMS_ITS | Encounter Summary ---
Author Organization [email or web address] Address [address] [place] [address] Care Team Providers Care Janitorial Cleaner Name Role Phone Unavailable Primary Care Provider Unavailabl e Encounter Details Date Type Department Care Team (Late st Contact Info) Description 11/13/1999 Outpatient Historical Division of Neurology [address] [facility] [address] [address] (Excluded Provider) [place] [address] [facility] [address] [place] [address] Social History Tobacco Use Types Packs/Day Years Used Date Smoking Tobacco: Never Assessed Sex and Gender Information Value Date Recorded Sex Assigned at Not on file 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
--- OUTSIDE RECORDS SUMMARY | 2025-03-10 15:24 | XMS_ITS | Encounter Summary ---
Author Organization [employer] Address 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
--- OUTSIDE RECORDS SUMMARY | 2025-03-10 15:24 | XMS_ITS | Clinical Summary ---
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
--- OUTSIDE RECORDS SUMMARY | 2025-03-10 15:24 | XMS_ITS | Encounter Summary ---
Author Organization [employer] Address [address] [place] [address] Care Team Providers Care Surgical Nurse Practitioner Name Role Phone Unavailable Primary Care Provider Unavailabl e Encounter Details Date Type Department Care Team (Late st Contact Info) Description 12/14/1999 Outpatient Historical Division of Neurology [address] [facility] [address] [address] (Excluded Provider) [place] [address] [facility] [facility] [address] [place] [address] Social History Tobacco Use Types Packs/Day Years Used Date Smoking Tobacco: Never Assessed Sex and Gender Information Value Date Recorded Sex Assigned at Not on file 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
[2025-03-10 16:07] LABS: Basophils Percent Auto 0.5 % (0.2-1.2); Eosinophils Absolute Auto 0.1 K/mm3 (0-0.3); Eosinophils Percent Auto 2.3 % (0-4.4); Hematocrit 29.8 % (42.0-52.0); Hemoglobin 10.2 g/dL (14.0-18.0); Immature Granulocyte Absolute 0.01 K/mm3 (0.00-0.031); Immature Granulocyte Percent A 0.3 % (0-0.5); Lymphocytes Absolute Auto 1.17 K/mm3 (0.9-3.2); Lymphocytes Percent Auto 29.6 % (18.3-44.2); Mean Corpuscular HGB Conc 34.2 g/dl (32-36); Mean Corpuscular Hemoglobin 37.5 pg (26-34); Mean Corpuscular Volume 109.6 fl (80-100); Mean Platelet Volume 9.9 fl (7.4-10.4); Monocytes Absolute Auto 0.4 K/mm3 (0.1-0.6); Monocytes Percent Auto 10.6 % (2.6-8.5); Neutrophils Absolute Auto 2.2 K/mm3 (1.3-6.7); Neutrophils Percent Auto 56.7 % (45.5-73.1); Platelet Count Result 170 k/mm3 (150-375); Red Blood Count 2.72 M/mm3 (4.6-6.20)
--- NOTE | 2025-03-10 16:12 | ED_ITS ---
HPI - General Adult General Chief complaint: Urogenital-Male Stated complaint: saini stopped draining Time Seen by Provider: 03/10/25 15:12 History of Present Illness HPI narrative: Patient is an 79-year-old male who presents ER with further complications. Chronic indwelling Saini for neurogenic bladder. Catheter was exchanged on 02/24/2025. He started noticing some blood in his Saini bag last night. It stopped draining this morning he has developed suprapubic discomfort. No fevers or chills or sweats. His pain is lower abdomen that is worse with movement. Related Data Home Medications ?Medication ?Instructions ?Recorded ?Confirmed ?Last Taken ?Type aspirin 81 mg tablet,delayed 81 mg PO DAILY 11/27/20 01/14/25 01/07/25 History release (Adult Low Dose Aspirin) ferrous sulfate 325 mg (65 mg 325 mg PO DAILY 11/27/20 01/14/25 01/03/25 History iron) tablet (Feosol) multivitamin (Daily Multi-Vitamin 1 tablet PO DAILY 11/27/20 01/14/25 01/09/25 History tablet) omega-3 fatty acids 1,000 mg 1,000 mg PO DAILY 11/27/20 01/14/25 01/07/25 History capsule (Super [place]-3) ranolazine 500 mg tablet,extended 500 mg PO BID 10/13/22 01/14/25 01/09/25 History release,12 hr carvedilol 3.125 mg tablet (Coreg) 3.125 mg PO TID 03/17/23 01/14/25 01/09/25 History coenzyme Q10 100 mg capsule (Co 100 mg PO DAILY 01/01/25 01/14/25 01/08/25 History Q-10) Allergies Allergy/AdvReac Type Severity Reaction Status Date / Time Penicillins Allergy Unknown Hives Verified 03/10/25 14:49 Review of Systems 2 Review of Systems: All systems reviewed & are unremarkable except as noted in HPI and below Constitutional: Constitutional: Reports no additional constitutional complaints ENT: Reports system reviewed and no additional complaints, except as documented Gastrointestinal: Gastrointestinal: Reports no additional gastrointestinal complaints Genitourinary: Genitourinary: Reports no additional male genitourinary complaints [facility] Past Medical History Medical History Colon polyp Gastritis Gallbladder anomaly Nausea & vomiting Epigastric pain 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 Chronic kidney disease Diabetic peripheral neuropathy Iron deficiency anemia Osteoarthritis Hypothyroidism Gastroesophageal reflux disease Coronary artery disease 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 Code status: Full code. Smoking status: Never smoker Second hand tobacco smoke exposure: No Alcohol intake: current Drinks per week: 1 Substance use: never Substance use type: does not use Lack of Transportation: No Lack of Food: Never True Current Housing: I Have Housing Concerned About Future Housing: No Difficulty Paying Gas/Electric Bills: No Difficulty Paying for Meds: No Currently Unemployed: No Education: Master's Degree or Higher Difficulty w/ Childcare or Family Care: No Living arrangements: with family Additional living arrangements comments: The patient lives in his own home in [place]. He and his are . 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: No Exam 2 Narrative: GENERAL: Well-appearing, well-nourished, and in no acute distress. HEAD: Normocephalic, atraumatic. ENT: Mucous membranes moist. CHEST: Clear to auscultation. No respiratory distress. HEART: Regular rate and rhythm. Normal peripheral pulses. ABDOMEN: Soft, mild suprapubic discomfort, nondistended. EXTREMITIES: Normal range of motion. No edema. SKIN: Warm, dry, no rash. NEURO: Alert and oriented x3. PSYCH: Normal mood and affect. Course Course Emergency Course: Discussed with urology. Recommends [address] and then CBI for hematoma. After placement we are still not getting much blood out but if I manipulate the suprapubic region there is sediment that starts to come out. Patient is to be NPO as he may require cystoscopy in the morning. Patient wear of treatment plan. Accepted by hospitalist service. Vital Signs Vital signs: Vital Signs Temperature 98 F 03/10/25 15:05 Pulse Rate 63 03/10/25 15:05 Respiratory Rate 16 03/10/25 15:05 Blood Pressure 144/65 H 03/10/25 15:05 Pulse Oximetry 100 03/10/25 15:05 Oxygen Delivery Room Air 03/10/25 15:05 Temperature 98 F 03/10/25 15:05 Pulse Rate 61 03/10/25 18:46 Respiratory Rate 18 03/10/25 18:46 Blood Pressure 139/72 03/10/25 18:46 Pulse Oximetry 100 03/10/25 18:46 Oxygen Delivery Room Air 03/10/25 15:05 Medical Decision Making Vital Signs Vital Signs: Vital Signs Temperature 98 F 03/10/25 15:05 Pulse Rate 63 03/10/25 15:05 Respiratory Rate 16 03/10/25 15:05 Blood Pressure 144/65 H 03/10/25 15:05 Pulse Oximetry 100 03/10/25 15:05 Oxygen Delivery Room Air 03/10/25 15:05 Temperature 98 F 03/10/25 15:05 Pulse Rate 61 03/10/25 18:46 Respiratory Rate 18 03/10/25 18:46 Blood Pressure 139/72 03/10/25 18:46 Pulse Oximetry 100 03/10/25 18:46 Oxygen Delivery Room Air 03/10/25 15:05 Lab Data 03/10/25 16:01 03/10/25 16:01 Labs: Lab Results 03/10/25 03/10/25 Range/Units 16:01 16:27 WBC 4.0 L (4.5-10.0) K/mm3 RBC 2.72 L (4.6-6.20) M/mm3 Hgb 10.2 L (14.0-18.0) g/dL Hct 29.8 L (42.0-52.0) % MCV 109.6 H (80-100) fl MCH 37.5 H (26-34) pg MCHC 34.2 (32-36) g/dl RDW 14.0 (11.5-14.5) % Plt Count 170 (150-375) k/mm3 MPV 9.9 (7.4-10.4) fl Immature Gran % (Auto) 0.3 (0-0.5) % Neut % (Auto) 56.7 (45.5-73.1) % Lymph % (Auto) 29.6 (18.3-44.2) % [place] % (Auto) 10.6 H (2.6-8.5) % Eos % (Auto) 2.3 (0-4.4) % Baso % (Auto) 0.5 (0.2-1.2) % Lymph # (Auto) 1.17 (0.9-3.2) K/mm3 [place] # (Auto) 0.4 (0.1-0.6) K/mm3 Eos # (Auto) 0.1 (0-0.3) K/mm3 Baso # (Auto) 0.0 (0.0-0.1) K/mm3 Abs Immat Gran (auto) 0.01 (0.00-0.031) K/mm3 Absolute Neuts (auto) 2.2 (1.3-6.7) K/mm3 Absolute Nucleated RBC 0.000 (0.0-0.012) K/mm3 Band Neutrophils % Not Reportable Nucleated RBC % 0.0 (0.0-0.2) % Platelet Estimate Adequate (Adequate) Macrocytosis 1+ (NORMAL) Ovalocytes 1+ Schistocytes None seen Sodium 138 (137-145) mmol/L Potassium 4.6 (3.4-5.0) mmol/L Chloride 106 (98-107) mmol/L Carbon Dioxide 23 (22-30) mmol/L Anion Gap 9 (4-12) mmol/L BUN 41 H D (9-20) mg/dL Creatinine 1.25 (0.7-1.3) mg/dL Estim Creat Clear Calc 37 ml/min Estimated GFR 56 L (59 - ) Glucose 216 H (65-110) mg/dL Calcium 9.4 (8.4-10.2) mg/dL Total Bilirubin 0.4 (0.2-1.3) mg/dL AST 26 (17-59) U/L ALT 19 (6-50) U/L Alkaline Phosphatase 59 (38-126) U/L Total Protein 7.0 (6.3-8.2) g/dL Albumin 4.2 (3.5-5.1) g/dL Urine Color Yellow (Yellow) Urine Appearance Turbid H (Clear) Urine pH 5.5 (5.0-9.0) Ur Specific [place] 1.011 (1.001-1.035) Urine Protein 2+ H (Negative) mg/dL Urine Glucose (UA) 3+ H (Negative) mg/dL Urine Ketones Negative (Negative) mg/dL Ur Blood (Man) 3+ H (Negative) Urine Nitrate Negative (Negative) Urine Bilirubin Negative (Negative) Urine Urobilinogen 0.2 (<2.0) mg/dL Add Ur Microanalysis Reviewed Leukocyte Esterase Rfl 3+ H (Negative) YARELIS/UL Urine RBC >100 H (0-2) /hpf Urine WBC >100 H (0-3) /hpf Ur Squamous Epith Cells Moderate (Few) /hpf Urine Bacteria 1+ H /hpf Urine Casts 0-2 Urine Yeast (Budding) Present H (None) /hpf Imaging Data Radiologist's impression: ITS Impressions Abdomen/Pelvis CT 03/10/25 17:00 IMPRESSION: Findings within the bladder consistent with this patient's presentation, with a focus of increased attenuation centrally within the bladder, likely representing hematoma, as detailed above. Discharge Plan Discharge Clinical Impression: Acute UTI, Complication of Saini catheter, Hematoma Patient Disposition: Still a Patient Condition: Stable Patient Language: [place] Prescriptions: No Action aspirin [Adult Low Dose Aspirin] 81 mg tablet,delayed release (DR/EC) 81 mg PO DAILY omega-3 fatty acids [Super [place]-3] 1,000 mg capsule 1,000 mg PO DAILY multivitamin [Daily Multi-Vitamin] Tablet 1 tablet PO DAILY ferrous sulfate [Feosol] 325 mg (65 mg iron) tablet 325 mg PO DAILY Entresto 24-26 mg tablet 1 tablet PO BID Qty: 30 0RF (DME) FreeStyle Drea 2 [place] Misc See Rx Instructions .Route Qty: 1 0RF Rx Instructions: As directed isosorbide mononitrate 60 mg tablet extended release 24 hr 60 mg PO BID Qty: 180 3RF pantoprazole 20 mg tablet,delayed release (DR/EC) 20 mg PO QAM 90 Days Qty: 90 3RF ranolazine 500 mg tablet extended release 12 hr 500 mg PO BID carvedilol [Coreg] 3.125 mg Tablet 3.125 mg PO TID Rx Instructions: must administer with a meal/food coenzyme Q10 [Co Q-10] 100 mg capsule 100 mg PO DAILY (DME) OneTouch Verio test strips Strip See Rx Instructions .ROUTE .MEDSUPPLY Qty: 200 3RF Rx Instructions: Use to test blood sugar bid, daily and as directed Trijardy XR 5-2.5-1,000 mg tablet, IR - ER, biphasic 24hr 2 tablet PO QAM Qty: 180 4RF nitroglycerin 0.4 mg tablet, sublingual 0.4 mg SUBLINGUAL Q5M PRN (Reason: chest pain) Qty: 25 2RF insulin glargine [Lantus Solostar U-100 Insulin] 100 unit/mL (3 mL) insulin pen 11 unit subcut QPM Qty: 15 3RF (DME) FreeStyle Drea 2 Sensor Kit See Rx Instructions .Route Qty: 13 1RF Rx Instructions: As directed levothyroxine 100 mcg tablet 100 mcg PO DAILY Qty: 90 1RF Follow-up/Referrals: Jay Jay Reynoso MD [Primary Care Provider] -
[2025-03-10 16:14] VITALS: BP 121/72; PULSE 66; RESP 14; O2SAT 100
[2025-03-10] MEDS: WATER FOR IRRIGATION, STERILE 500 ML BOTTLE (16:17)
[2025-03-10 16:18] LABS: Alanine Aminotransferase 19 U/L (6-50); Albumin Level 4.2 g/dL (3.5-5.1); Alkaline Phosphatase 59 U/L (38-126); Anion Gap 9 mmol/L (4-12); Aspartate Amino Transferase 26 U/L (17-59); Bilirubin,Total 0.4 mg/dL (0.2-1.3); Blood Urea Nitrogen 41 mg/dL (9-20); Calcium 9.4 mg/dL (8.4-10.2); Carbon Dioxide 23 mmol/L (22-30); Chloride 106 mmol/L (98-107); Estimated CRCL calculation 37 ml/min; Estimated Glomerular Filt Rate 56; Glucose 216 mg/dL (65-110); Potassium 4.6 mmol/L (3.4-5.0); Sodium 138 mmol/L (137-145)
[2025-03-10 16:32] LABS: Macrocytosis 1+ (NORMAL); Ovalocytes 1+; Platelet Estimate Adequate (Adequate); Schistocytes None Seen
[2025-03-10 16:48] LABS: Add Urine Microscopic? YES; Appearance Urine Turbid (Clear); Bacteria Urine 1+ /hpf; Bilirubin Urine Negative (Negative); Blood Urine 3+ (Negative); Budding Yeast Urine Present /hpf; Color Urine Yellow (Yellow); Glucose Urine UA 3+ mg/dL (Negative); Ketones Urine Negative (Negative); Leukocyte Esterase Ur 3+ LEU/UL (Negative); Need Manual Microscopic Reviewed; Nitrate Urine Negative (Negative); Non Pathogenic Casts 0-2; Protein Urine 2+ mg/dL (Negative); RBC Urine >100 /hpf (0-2); Specific Grav Ur 1.011 (1.001-1.035); Squamous Epithelial Cell Urine Moderate /hpf (Few); Urobilinogen Urine 0.2 mg/dL (<2.0); WBC Urine >100 /hpf (0-3); pH Urine 5.5 (5.0-9.0)
--- NOTE | 2025-03-10 18:33 | P.HP_ITS ---
H&P: HPI History of Present Illness Date/Time: 03/10/25 18:33 Chief Complaint: Abdominal pain Narrative: 79-year-old male diabetes type 2, myelodysplastic syndrome, neurogenic bladder with chronic Webber, chronic kidney disease, iron deficiency anemia, hypothyroidism and CAD presents the hospital with abdominal pain. Patient has a chronic Webber and he states that yesterday he noticed that his urine was slight ly bloody. Today he states that his Webber catheter stopped draining and causing him abdominal pain. Patient denies nausea vomiting fever chills. In the ED his lab work shows leukopenia at 4.0, hemoglobin of 10.2, BUN of 41, creatinine of 1.25 which is around baseline, GFR of 56, glucose of 216, urine is turbid with 3+ blood, 3+ leukocyte esterase, over 100 RBCs over 100 wbc's with 1+ bacteria. Patient's Webber was flushed and was draining well. CT of the abdomen shows Findings within the bladder consistent with this patient's presentation, with a focus of increased attenuation centrally within the bladder, likely representing hematoma. Urology was consulted with recommendations for through a Webber and CBI overnight. Review of Systems Review of Systems: 12 systems were reviewed and are negativ e except for as per HPI. 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 Chronic kidney disease Diabetic peripheral neuropathy Iron deficiency anemia Osteoarthritis Hypothyroidism Gastroesophageal reflux disease Coronary artery disease 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 Code status: Full code. Smoking status: Never smoker Second hand tobacco smoke exposure: No Alcohol intake: never Drinks per week: 1 Substance use: never Substance use type: does not use Do You Feel Safe in your Home?: Yes Lack of Transportation: No Lack of Food: Never True Current Housing: I Have Housing Concerned About Future Housing: No Difficulty Paying Gas/Electric Bills: No Difficulty Paying for Meds: No Currently Unemployed: No Education: Decline to Answer Difficulty w/ Childcare or Family Care: No Living arrangements: with family Additional living arrangements comments: The patient lives in his own home in [place]. He and his are . 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: No Meds Home Medications and Allergies Home Medications ?Medication ?Instructions ?Recorded ?Confirmed ?Type aspirin 81 mg tablet,delayed 81 mg PO HS 11/27/20 03/10/25 History release (Adult Low Dose Aspirin) ferrous sulfate 325 mg (65 mg 325 mg PO TID 11/27/20 03/10/25 History iron) tablet (Feosol) multivitamin (Daily Multi-Vitamin 1 tablet PO DAILY 11/27/20 03/10/25 History tablet) omega-3 fatty acids 1,000 mg 1,000 mg PO DAILY 11/27/20 03/10/25 History capsule (Super [place]-3) ranolazine 500 mg tablet,extended 500 mg PO BID 10/13/22 03/10/25 History release,12 hr sacubitril 24 mg-valsartan 26 mg 1 tablet PO BID #30 tabs 11/15/22 03/10/25 Rx tablet (Entresto) blood sugar diagnostic (OneTouch #200 ea 01/05/23 03/10/25 Rx Verio test strips) carvedilol 3.125 mg tablet (Coreg) 3.125 mg PO DAILY 03/17/23 03/10/25 History flash glucose scanning reader #1 ea 08/31/23 03/10/25 Rx (FreeStyle Drea 2 [place]) isosorbide mononitrate 60 mg 60 mg PO BID #180 tabs 12/26/23 03/10/25 Rx tablet,extended release 24 hr pantoprazole 20 mg tablet,delayed 20 mg PO QAM 3 months #90 tabs 04/05/24 03/10/25 Rx release empagliflozin 5 mg-linagliptin 2.5 2 tablet (2 x 5-2.5-1,000 mg) PO 06/18/24 03/10/25 Rx mg-metformn ER 1,000 mg QAM #180 ea tablet,24hr (Trijardy XR) nitroglycerin 0.4 mg sublingual 0.4 mg sublingual Q5M PRN chest 09/28/24 03/10/25 Rx tablet pain #25 tabs coenzyme Q10 100 mg capsule (Co 100 mg PO DAILY 01/01/25 03/10/25 History Q-10) flash glucose sensor (FreeStyle #13 ea 01/21/25 03/10/25 Rx Drea 2 Sensor kit) levothyroxine 100 mcg tablet 100 mcg PO DAILY #90 tabs 01/22/25 03/10/25 Rx insulin glargine 100 unit/mL (3 12 unit subcut QPM 03/10/25 03/10/25 History mL) subcutaneous pen (Lantus Solostar U-100 Insulin) Allergies Allergy/AdvReac Type Severity Reaction Status Date / Time Penicillins Allergy Unknown Hives Verified 03/10/25 14:49 Vital Signs Vital Signs - 24 hr 03/10/25 15:05 03/10/25 16:14 Temperature 98 F Pulse Rate 63 66 Respiratory Rate 16 14 Blood Pressure 144/65 H 121/72 Pulse Oximetry 100 100 Oxygen Delivery Room Air Exam Narrative: General: well appearing, appears stated age. HEENT: normocephalic, atraumatic. Mucous membranes moist. EOMI, PERRLA, bilateral sclera anicteric, no conjunctival injection. Neck supple without JVD, lymphadenopathy, or bruit. Respiratory: clear to ascultation bilaterally. No rales/rhonic/wheezes. Cardiovascular: Regular rate and rhythm, normal S1-S2 upon ascultation. No murmurs, rubs, or clicks. PMI is nondisplaced, capillary refill less than 3 second. Abdomen: Soft, round, no pulsatile masses, nondistended and nontender. No rebound, no guarding. No CVA tenderness, no hepatosplenomegaly. Bowel sounds present to all four quadrants. No high pitch or tinkling sounds, resonant to percussion. Extremities: No cyanosis, clubbing, or edema present. Pulses are palpable 2/2. Active ROM to all four extremities. Neuro: Alert and orientated x 4. PERRLA. Cranial nerves 2-12 intact without focal deficit. Skin: Warm, dry, and intact, without rash, erythema, or lesion. Psych: pleasant, cooperative, normal speech, normal affect, no hallucinations, no dysarthia Webber catheter H&P: Results Labs Labs: Short CBC 03/10/25 Range/Units 16:01 WBC 4.0 L (4.5-10.0) K/mm3 Hgb 10.2 L (14.0-18.0) g/dL Hct 29.8 L (42.0-52.0) % Plt Count 170 (150-375) k/mm3 BMP 03/10/25 16:01 Sodium 138 Potassium 4.6 Chloride 106 Carbon Dioxide 23 BUN 41 H D Creatinine 1.25 Glucose 216 H Calcium 9.4 Liver Function 03/10/25 Range/Units 16:01 Total Bilirubin 0.4 (0.2-1.3) mg/dL AST 26 (17-59) U/L ALT 19 (6-50) U/L Alkaline Phosphatase 59 (38-126) U/L Albumin 4.2 (3.5-5.1) g/dL Urine 03/10/25 Range/Units 16:27 Urine Color Yellow (Yellow) Urine Appearance Turbid H (Clear) Urine pH 5.5 (5.0-9.0) Ur Specific [place] 1.011 (1.001-1.035) Urine Protein 2+ H (Negative) mg/dL Urine Glucose (UA) 3+ H (Negative) mg/dL Assessment and Plan Assessment and plan (1) Acute UTI: Code(s): N39.0 - Urinary tract infection, site not specified Status: Acute Assessment and Plan: Secondary to chronic Webber being clotted off and urinary retention Culture and sensitivity pending Rocephin IVF (2) Hematoma of bladder wall: Code(s): S37.22XA - Contusion of bladder, initial encounter Status: Acute Assessment and Plan: Chronic Webber exchanged for a 3 way catheter Urology consulted CBI Possible procedure in the morning NPO midnight (3) Insulin dependent type 2 diabetes mellitus: Code(s): E11.9 - Type 2 diabetes mellitus without complications; Z79.4 - [facility]CI (current) use of insulin Status: Acute Assessment and Plan: Diabetic diet NPO midnight for procedure Accu-Cheks a.c. HS Lantus and SSI (4) Hypothyroidism (acquired): Code(s): E03.9 - Hypothyroidism, unspecified Status: Acute Assessment and Plan: Continue levothyroxine (5) CKD (chronic kidney disease), stage III: Code(s): N18.30 - Chronic kidney disease, stage 3 unspecified Status: Acute Assessment and Plan: BMP in morning L (6) Myelodysplasia (myelodysplastic syndrome): Code(s): D46.9 - Myelodysplastic syndrome, unspecified Status: Acute Assessment and Plan: Chronic Webber due to neurogenic bladder Restart home medications (7) Coronary artery disease: Qualifiers: Associated angina: without angina Coronary Disease-Associated Artery/Lesion type: [place] artery [place] vs. transplanted heart: [place] heart Qualified Code(s): I25.10 - Atherosclerotic heart disease of [place] coronary artery without angina pectoris Code(s): I25.10 - Atherosclerotic heart disease of [place] coronary artery without angina pectoris Status: Acute Assessment and Plan: Continue Entresto, and Imdur Quality VTE Prophylaxis VTE prophylaxis: mechanical ordered If No VTE Prophylaxis Answer both mechanical and pharmacologic: Reason no pharmacologic proph: medical contraindication active bleeding/bleeding risk Hospitalist MIPS Advance Care Plan I have confirmed that the patient's Advanced Care Plan is present, code status is documented, or surrogate decision maker is listed in patient medical record.: Yes Medication Reconciliation I have utilized all available resources to obtain, update and review the patients current medications (includes all prescriptions, OTC, herbals, cannabis, and nutritional supplements).: Yes
[2025-03-10 18:46] VITALS: BP 139/72; PULSE 61; RESP 18; O2SAT 100
[2025-03-10] MEDS: MORPHINE SULFATE (*CRX) 2 MG/ML INJ IV PUSH (18:58)
[2025-03-10] MEDS: ONDANSETRON INJ 4 MG/2 ML VIAL IV PUSH (18:58)
[2025-03-10 20:32] VITALS: O2SAT 98
[2025-03-10 20:45] VITALS: BP 110/74; PULSE 74; RESP 16; O2SAT 98
[2025-03-10 20:52] VITALS: BMI 24.7
--- NOTE | 2025-03-10 20:53 | ADMGEN ---
This patient, Darien Guzman, was admitted to [address] [place] [address] Room 324-02. Patient/family oriented to hospital policies and general routines including ID bracelet, bed and alarms, visiting hours, pain management, procedures, bathroom and other care routines, personal items, smoking policy, room service/diet, and visiting hours. Information on how to activate the Rapid Response Team has been discussed. Patient/Family are encouraged to report perceived risks to care and to ask questions if they do not understand what they are told or what they should do.
[2025-03-10 21:51] LABS: Glucose Point of Care 252 mg/dl (65-105)
[2025-03-10] MEDS: SODIUM CHLORIDE 0.45% 1,000 ML 100 ML IV CONT (21:54)
[2025-03-10] MEDS: DOCUSATE SODIUM 100 MG CAPSULE PO (21:54)
[2025-03-10 21:59] VITALS: BP 117/54; PULSE 88; RESP 18; TEMP 36.9; O2SAT 99
[2025-03-10] MEDS: SODIUM CHLORIDE 0.9% IV 1,000 ML 125 ML IV CONT (22:55)
[2025-03-10] MEDS: SACUBITRIL/VALSARTAN 24-26 MG TABLET 1 TAB PO (22:57)
[2025-03-10] MEDS: INSULIN GLARGINE (*BKC) 100 UNITS/ML 10 UNITS SUB-Q (22:57)
[2025-03-11] VITALS (10 sets, daily range): BP systolic 108–147; BP diastolic 40–65; PULSE 48–95; RESP 13–19; TEMP 35.9–36.6; O2SAT 98–100
[2025-03-11] MEDS: MORPHINE SULFATE (*CRX) 2 MG/ML INJ IV PUSH ×2 (01:12→10:42)
[2025-03-11] MEDS: LEVOTHYROXINE SODIUM 100 MCG TABLET PO (05:41)
[2025-03-11 06:34] LABS: Basophils Percent Auto 0.8 % (0.2-1.2); Eosinophils Absolute Auto 0.1 K/mm3 (0-0.3); Eosinophils Percent Auto 2.5 % (0-4.4); Hematocrit 31.7 % (42.0-52.0); Hemoglobin 10.4 g/dL (14.0-18.0); Immature Granulocyte Absolute 0.01 K/mm3 (0.00-0.031); Immature Granulocyte Percent A 0.3 % (0-0.5); Lymphocytes Absolute Auto 0.88 K/mm3 (0.9-3.2); Lymphocytes Percent Auto 22.1 % (18.3-44.2); Mean Corpuscular HGB Conc 32.8 g/dl (32-36); Mean Corpuscular Hemoglobin 37.1 pg (26-34); Mean Corpuscular Volume 113.2 fl (80-100); Mean Platelet Volume 9.9 fl (7.4-10.4); Monocytes Absolute Auto 0.5 K/mm3 (0.1-0.6); Monocytes Percent Auto 11.3 % (2.6-8.5); Neutrophils Absolute Auto 2.5 K/mm3 (1.3-6.7); Platelet Count Result 148 k/mm3 (150-375)
[2025-03-11 06:40] LABS: Anion Gap 7 mmol/L (4-12); Blood Urea Nitrogen 32 mg/dL (9-20); Calcium 8.8 mg/dL (8.4-10.2); Carbon Dioxide 27 mmol/L (22-30); Chloride 105 mmol/L (98-107); Estimated CRCL calculation 40 ml/min; Estimated Glomerular Filt Rate > 60; Glucose 151 mg/dL (65-110); Potassium 4.4 mmol/L (3.4-5.0); Sodium 139 mmol/L (137-145)
[2025-03-11] MEDS: SODIUM CHLORIDE 0.9% IV 1,000 ML 125 ML IV CONT (06:41)
[2025-03-11 07:52] LABS: Glucose Point of Care 145 mg/dl (65-105)
[2025-03-11 07:57] LABS: Macrocytosis 1+ (NORMAL); Platelet Estimate Slightly Decreased (Adequate); Schistocytes None Seen
[2025-03-11 11:36] LABS: Glucose Point of Care 130 mg/dl (65-105)
--- NOTE | 2025-03-11 12:03 | WPDURCON ---
Assessment and Plan Assessment and plan (1) Hematoma of bladder wall: Code(s): S37.22XA - Contusion of bladder, initial encounter Status: Acute Assessment and Plan: Despite urine looking clear his CT scan reveals clots in the bladder will proceed with cysto with clot evacuation later today. (2) Urinary retention: Code(s): R33.9 - Retention of urine, unspecified Status: Acute Assessment and Plan: Continue with chronic indwelling Webber. Urology Consult Note HPI Date Seen: 03/11/25 Time Seen: 07:45 Requesting Physician: Huber Redding MD Primary Care Provider: Jay Jay Reynoso MD Consult Narrative Reason for consult: Hematuria Narrative: Darien Guzman is a 79 year old male with chronic indwelling Webber. Presented to the emergency room after his Webber catheter had some blood in stent draining. Catheter was replaced in the emergency room but again did not have adequate drainage. The time my evaluation he had some CBI going his urine was actually clear. However his CT scan reveals possible clots in the bladder. 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 Chronic kidney disease Diabetic peripheral neuropathy Iron deficiency anemia Osteoarthritis Hypothyroidism Gastroesophageal reflux disease Coronary artery disease Insulin dependent type 2 diabetes mellitus Myelodysplastic syndrome Transient ischemic attack (2020) Mixed axonal-demyelinating polyneuropathy Hearing loss Squamous cell carcinoma of scalp Vitamin B12 deficiency Weight loss Surgical History Surgical History Hx of hernia repair History of left hip replacement History of arthroscopy of right knee History of colonoscopy with polypectomy History of cardiac catheterization History of quadruple bypass Family History Family History Father Cerebrovascular accident Mother due to natural causes Son Diabetes mellitus Social History Social History Social History: Surrogate medical decision maker: Fritchmalathi Guzman. Code status: Full code. Smoking status: Never smoker Second hand tobacco smoke exposure: No Alcohol intake: never Drinks per week: 1 Substance use: never Substance use type: does not use Do You Feel Safe in your Home?: Yes Lack of Transportation: No Lack of Food: Never True Current Housing: I Have Housing Concerned About Future Housing: No Difficulty Paying Gas/Electric Bills: No Difficulty Paying for Meds: No Currently Unemployed: No Education: Decline to Answer Difficulty w/ Childcare or Family Care: No Living arrangements: with family Additional living arrangements comments: The patient lives in his own home in [place]. He and his are . 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: No Meds Home Medications and Allergies Home Medications ?Medication ?Instructions ?Recorded ?Confirmed ?Type aspirin 81 mg tablet,delayed 81 mg PO HS 11/27/20 03/10/25 History release (Adult Low Dose Aspirin) ferrous sulfate 325 mg (65 mg 325 mg PO TID 11/27/20 03/10/25 History iron) tablet (Feosol) multivitamin (Daily Multi-Vitamin 1 tablet PO DAILY 11/27/20 03/10/25 History tablet) omega-3 fatty acids 1,000 mg 1,000 mg PO DAILY 11/27/20 03/10/25 History capsule (Super [place]-3) ranolazine 500 mg tablet,extended 500 mg PO BID 10/13/22 03/10/25 History release,12 hr sacubitril 24 mg-valsartan 26 mg 1 tablet PO BID #30 tabs 11/15/22 03/10/25 Rx tablet (Entresto) blood sugar diagnostic (OneTouch #200 ea 01/05/23 03/10/25 Rx Verio test strips) carvedilol 3.125 mg tablet (Coreg) 3.125 mg PO DAILY 03/17/23 03/10/25 History flash glucose scanning reader #1 ea 08/31/23 03/10/25 Rx (FreeStyle Drea 2 [place]) isosorbide mononitrate 60 mg 60 mg PO BID #180 tabs 12/26/23 03/10/25 Rx tablet,extended release 24 hr pantoprazole 20 mg tablet,delayed 20 mg PO QAM 3 months #90 tabs 04/05/24 03/10/25 Rx release empagliflozin 5 mg-linagliptin 2.5 2 tablet (2 x 5-2.5-1,000 mg) PO 06/18/24 03/10/25 Rx mg-metformn ER 1,000 mg QAM #180 ea tablet,24hr (Trijardy XR) nitroglycerin 0.4 mg sublingual 0.4 mg sublingual Q5M PRN chest 09/28/24 03/10/25 Rx tablet pain #25 tabs coenzyme Q10 100 mg capsule (Co 100 mg PO DAILY 01/01/25 03/10/25 History Q-10) flash glucose sensor (FreeStyle #13 ea 01/21/25 03/10/25 Rx Drea 2 Sensor kit) levothyroxine 100 mcg tablet 100 mcg PO DAILY #90 tabs 01/22/25 03/10/25 Rx insulin glargine 100 unit/mL (3 12 unit subcut QPM 03/10/25 03/10/25 History mL) subcutaneous pen (Lantus Solostar U-100 Insulin) Allergies Allergy/AdvReac Type Severity Reaction Status Date / Time Penicillins Allergy Unknown Hives Verified 03/10/25 14:49 Vital Signs Vital Signs - 24 hr 03/10/25 15:05 03/10/25 16:14 03/10/25 18:46 Temperature 36.6 C Pulse Rate 63 66 61 Respiratory Rate 16 14 18 Blood Pressure 144/65 H 121/72 139/72 Pulse Oximetry 100 100 100 Oxygen Delivery Room Air 03/10/25 20:32 03/10/25 20:45 03/10/25 21:11 Temperature Pulse Rate 74 Respiratory Rate 16 Blood Pressure 110/74 Pulse Oximetry 98 98 Oxygen Delivery Room Air Room Air 03/10/25 21:59 03/11/25 05:34 03/11/25 08:00 Temperature 36.9 C 36.6 C Pulse Rate 88 51 L Respiratory Rate 18 16 Blood Pressure 117/54 L 114/40 L Pulse Oximetry 99 98 Oxygen Delivery Room Air 03/11/25 08:00 Temperature Pulse Rate 59 L Respiratory Rate Blood Pressure 126/55 L Pulse Oximetry 100 Oxygen Delivery Exam Const: General: cooperative and comfortable Resp: Effort & Inspection: normal respiratory effort Cardio: Rate: regular rate Rhythm: regular rhythm Results Labs 03/11/25 06:04 03/11/25 06:04 Labs: Short CBC 03/10/25 03/11/25 Range/Units 16:01 06:04 WBC 4.0 L 4.0 L (4.5-10.0) K/mm3 Hgb 10.2 L 10.4 L (14.0-18.0) g/dL Hct 29.8 L 31.7 L (42.0-52.0) % Plt Count 170 148 L (150-375) k/mm3 BMP 03/10/25 03/11/25 16:01 06:04 Sodium 138 139 Potassium 4.6 4.4 Chloride 106 105 Carbon Dioxide 23 27 BUN 41 H D 32 H Creatinine 1.25 1.14 Glucose 216 H 151 H Calcium 9.4 8.8 Liver Function 03/10/25 Range/Units 16:01 Total Bilirubin 0.4 (0.2-1.3) mg/dL AST 26 (17-59) U/L ALT 19 (6-50) U/L Alkaline Phosphatase 59 (38-126) U/L Albumin 4.2 (3.5-5.1) g/dL Urine 03/10/25 Range/Units 16:27 Urine Color Yellow (Yellow) Urine Appearance Turbid H (Clear) Urine pH 5.5 (5.0-9.0) Ur Specific [place] 1.011 (1.001-1.035) Urine Protein 2+ H (Negative) mg/dL Urine Glucose (UA) 3+ H (Negative) mg/dL
--- NOTE | 2025-03-11 12:07 | WPDHPUPDATE1 ---
History and Physical Update Update Date/Time: 03/11/25 12:07 History and Physical has been reviewed, including an updated exam of the patient. There are NO changes in the patient's condition. Risks, benefits, and alternatives have been discussed and questions answered. Patient agrees to proceed with procedure. Proceed with cysto with clot evacuation
--- NOTE | 2025-03-11 12:46 | P.PNIM_ITS ---
Progress Note: A&P Assessment and Plan (1) Acute UTI: Code(s): N39.0 - Urinary tract infection, site not specified Status: Acute Assessment and Plan: Secondary to chronic Webber being clotted off and urinary retention Culture and sensitivity pending Rocephin IVF (2) Hematoma of bladder wall: Code(s): S37.22XA - Contusion of bladder, initial encounter Status: Acute Assessment and Plan: Chronic Webber exchanged for a [address] showed clot in the bladder Urology consulted plan for cystoscopy today CBI t (3) Insulin dependent type 2 diabetes mellitus: Code(s): E11.9 - Type 2 diabetes mellitus without complications; Z79.4 - group home (current) use of insulin Status: Acute Assessment and Plan: Diabetic diet NPO for procedure Accu-Cheks a.c. HS Lantus and SSI (4) Hypothyroidism (acquired): Code(s): E03.9 - Hypothyroidism, unspecified Status: Acute Assessment and Plan: Continue levothyroxine (5) CKD (chronic kidney disease), stage III: Code(s): N18.30 - Chronic kidney disease, stage 3 unspecified Status: Acute Assessment and Plan: BMP in morning (6) Myelodysplasia (myelodysplastic syndrome): Code(s): D46.9 - Myelodysplastic syndrome, unspecified Status: Acute Assessment and Plan: Chronic Webber due to neurogenic bladder Restart home medications (7) Coronary artery disease: Qualifiers: Coronary Disease-Associated Artery/Lesion type: [place] artery [place] vs. transplanted heart: [place] heart Associated angina: without angina Qualified Code(s): I25.10 - Atherosclerotic heart disease of [place] coronary artery without angina pectoris Code(s): I25.10 - Atherosclerotic heart disease of [place] coronary artery without angina pectoris Status: Acute Assessment and Plan: Continue Entresto, and Imdur Subjective Date/time seen: 03/11/25 12:46 Interval history: per HPI: 79-year-old male diabetes type 2, myelodysplastic syndrome, neurogenic bladder with chronic Webber, chronic kidney disease, iron deficiency anemia, hypothyroidism and CAD presents the hospital with abdominal pain. Patient has a chronic Webber and he states that yesterday he noticed that his urine was slightly bloody. Today he states that his Webber catheter stopped draining and causing him abdominal pain. Patient denies nausea vomiting fever chills. In the ED his lab work shows leukopenia at 4.0, hemoglobin of 10.2, BUN of 41, creatinine of 1.25 which is around baseline, GFR of 56, glucose of 216, urine is turbid with 3+ blood, 3+ leukocyte esterase, over 100 RBCs over 100 wbc's with 1+ bacteria. Patient's Webber was flushed and was draining well. CT of the abdomen shows Findings within the bladder consistent with this patient's presentation, with a focus of increased attenuation centrally within the bladder, likely representing hematoma. Urology was consulted with recom mendations for through a Webber and CBI overnight. 03/11/25 patient was seen and examined at bedside. he is feeling Fine denies any chest pain, abd pain, nausea or vomiting. hematuria improving. catheter is working. urology team on board.Ct showed clot in the bladder. plan for cystoscopy today. Review of Systems Review of Systems: 12 systems were reviewed and are negativ e except for as per HPI. Exam Narrative: General: well appearing, appears stated age. HEENT: normocephalic, atraumatic. Mucous membranes moist. EOMI, PERRLA, bilateral sclera anicteric, no conjunctival injection. Neck supple without JVD, lymphadenopathy, or bruit. Respiratory: clear to ascultation bilaterally. No rales/rhonic/wheezes. Cardiovascular: Regular rate and rhythm, normal S1-S2 upon ascultation. No murmurs, rubs, or clicks. PMI is nondisplaced, capillary refill less than 3 second. Abdomen: Soft, round, no pulsatile masses, nondistended and nontender. No rebound, no guarding. No CVA tenderness, no hepatosplenomegaly. Bowel sounds present to all four quadrants. No high pitch or tinkling sounds, resonant to percussion. Extremities: No cyanosis, clubbing, or edema present. Pulses are palpable 2/2. Active ROM to all four extremities. Neuro: Alert and orientated x 4. PERRLA. Cranial nerves 2-12 intact without focal deficit. Skin: Warm, dry, and intact, without rash, erythema, or lesion. Psych: pleasant, cooperative, normal speech, normal affect, no hallucinations, no dysarthia Webber catheter Objective Data Vital Signs Vital Signs: Vital Signs - 24 hr 03/10/25 15:05 03/10/25 16:14 03/10/25 18:46 Temperature 98 F Pulse Rate 63 66 61 Respiratory Rate 16 14 18 Blood Pressure 144/65 H 121/72 139/72 Pulse Oximetry 100 100 100 Oxygen Delivery Room Air 03/10/25 20:32 03/10/25 20:45 03/10/25 21:11 Temperature Pulse Rate 74 Respiratory Rate 16 Blood Pressure 110/74 Pulse Oximetry 98 98 Oxygen Delivery Room Air Room Air 03/10/25 21:59 03/11/25 05:34 03/11/25 08:00 Temperature 98.4 F 98 F Pulse Rate 88 51 L Respiratory Rate 18 16 Blood Pressure 117/54 L 114/40 L Pulse Oximetry 99 98 Oxygen Delivery Room Air 03/11/25 08:00 Temperature Pulse Rate 59 L Respiratory Rate Blood Pressure 126/55 L Pulse Oximetry 100 Oxygen Delivery Intake/Output Intake/Output: Intake & Output 03/08/25 03/09/25 03/10/25 03/11/25 23:59 23:59 23:59 23:59 Intake Total 150 1444.6 Output Total 4500 6100 Balance -4350 -4655.4 Meds/Results Medications: Active Medications Generic Name Dose Route Start Last Admin Trade Name Freq PRN Reason Stop Dose Admin Acetaminophen 650 mg 03/10/25 18:33 Acetaminophen 325 Mg Tablet PO Q4H PRN Mild Pain (1-3) or Fever Hydrocodone Bitart/Acetaminophen 1 tab 03/10/25 18:33 Hydrocodone/Acetaminophen (*Crx) 5-325 Mg Tablet PO Q4H PRN Pain Rated 4-6 Aspirin 81 mg 03/11/25 21:00 Aspirin 81 Mg Enteric Tablet PO HS [facility] Dextrose 12.5 gm 03/10/25 19:18 Dextrose 50% 25 Gm/50 Ml Syringe IV PUSH PRN PRN Hypoglycemia Protocol Docusate Sodium 100 mg 03/10/25 21:00 03/10/25 21:54 Docusate Sodium 100 Mg Capsule PO 100 mg Q12HR TROY Administration Ferrous Sulfate 325 mg 03/11/25 09:00 Ferrous Sulfate [address] BY MOUTH TID TROY Glucagon 1 mg 03/10/25 19:18 Glucagon For Inj 1 Mg Vial IM PRN PRN Hypoglycemia Protocol Glucose 15 gm 03/10/25 19:18 Glucose Oral Gel 15 Gm Of Glucse In 37.5 Gm Tube PO PRN PRN Hypoglycemia Protocol Ceftriaxone Sodium 1 gm in 50 mls @ 100 mls/hr 03/11/25 19:00 Rocephin 1 Gm/Ns 50 Ml IVPB Q24H TROY Sodium Chloride 1,000 mls @ 125 mls/hr 03/10/25 18:35 03/11/25 06:41 Normal Saline Iv IV CONT 125 mls/hr .Q8H TROY Administration Dextrose 1,000 mls @ 100 mls/hr 03/10/25 19:18 Dextrose 5% 1,000 Ml IVPB PRN PRN Hypoglycemia Protocol Insulin Aspart 2 - 5 units 03/11/25 08:00 03/11/25 12:04 Insulin Aspart (*Bkc) 100 Units/Ml SUB-Q Not Given TIDWM [facility] Protocol Insulin Glargine 10 units 03/10/25 21:00 03/10/25 22:57 Insulin Glargine (*Bkc) 100 Units/Ml 0.15 units/kg (10 units) 10 units SUB-Q Administration HS TROY Isosorbide Mononitrate 60 mg 03/11/25 09:00 Isosorbide Mononitrate 60 Mg Tab.Er.24h PO DAILY TROY Levothyroxine Sodium 100 mcg 03/11/25 06:30 03/11/25 05:41 Levothyroxine Sodium 100 Mcg Tablet PO 100 mcg DAILY@0630 [facility] Administration Morphine Sulfate 2 mg 03/10/25 18:33 03/11/25 10:42 Morphine Sulfate (*Crx) 2 Mg/Ml Inj IV PUSH 2 mg Q2H PRN Administration Pain Rated 7-10 Nitroglycerin 0.4 mg 03/10/25 22:07 Nitroglycerin Sl 0.4 Mg Tablet SUBLINGUAL Q5M PRN chest pain Ondansetron HCl 4 mg 03/10/25 18:33 03/10/25 18:58 Ondansetron Inj 4 Mg/2 Ml Vial IV PUSH 4 mg Q4H PRN Administration Nausea Pantoprazole Sodium 20 mg 03/11/25 09:00 Pantoprazole Sod Sesquihydrate 20 Mg Tab PO QAM TROY Sacubitril/Valsartan 1 tab 03/10/25 22:20 03/10/25 22:57 Sacubitril/Valsartan 24-26 Mg Tablet PO 1 tab Q12HR TROY Administration Radiology Results: ITS Impressions Abdomen/Pelvis CT 03/10/25 17:00 IMPRESSION: Findings within the bladder consistent with this patient's presentation, with a focus of increased attenuation centrally within the bladder, likely representing hematoma, as detailed above. Labs Labs: Laboratory Results - last 24 hr 03/10/25 03/10/25 03/10/25 16:01 16:27 21:39 WBC 4.0 L RBC 2.72 L Hgb 10.2 L Hct 29.8 L MCV 109.6 H MCH 37.5 H MCHC 34.2 RDW 14.0 Plt Count 170 MPV 9.9 Immature Gran % (Auto) 0.3 Neut % (Auto) 56.7 Lymph % (Auto) 29.6 [place] % (Auto) 10.6 H Eos % (Auto) 2.3 Baso % (Auto) 0.5 Lymph # (Auto) 1.17 [place] # (Auto) 0.4 Eos # (Auto) 0.1 Baso # (Auto) 0.0 Abs Immat Gran (auto) 0.01 Absolute Neuts (auto) 2.2 Absolute Nucleated RBC 0.000 Band Neutrophils % Not Reportable Nucleated RBC % 0.0 Platelet Estimate Adequate Macrocytosis 1+ Ovalocytes 1+ Schistocytes None seen Sodium 138 Potassium 4.6 Chloride 106 Carbon Dioxide 23 Anion Gap 9 BUN 41 H D Creatinine 1.25 Estim Creat Clear Calc 37 Estimated GFR 56 L Glucose 216 H POC Capillary Glucose 252 H Calcium 9.4 Total Bilirubin 0.4 AST 26 ALT 19 Alkaline Phosphatase 59 Total Protein 7.0 Albumin 4.2 Urine Color Yellow Urine Appearance Turbid H Urine pH 5.5 Ur Specific [place] 1.011 Urine Protein 2+ H Urine Glucose (UA) 3+ H Urine Ketones Negative Ur Blood (Man) 3+ H Urine Nitrate Negative Urine Bilirubin Negative Urine Urobilinogen 0.2 Add Ur Microanalysis Reviewed Leukocyte Esterase Rfl 3+ H Urine RBC >100 H Urine WBC >100 H Ur Squamous Epith Cells Moderate Urine Bacteria 1+ H Urine Casts 0-2 Urine Yeast ([place]) Present H 03/11/25 03/11/25 03/11/25 06:04 07:48 11:34 WBC 4.0 L RBC 2.80 L Hgb 10.4 L Hct 31.7 L MCV 113.2 H MCH 37.1 H MCHC 32.8 RDW 14.0 Plt Count 148 L MPV 9.9 Immature Gran % (Auto) 0.3 Neut % (Auto) 63.0 Lymph % (Auto) 22.1 [place] % (Auto) 11.3 H Eos % (Auto) 2.5 Baso % (Auto) 0.8 Lymph # (Auto) 0.88 L [place] # (Auto) 0.5 Eos # (Auto) 0.1 Baso # (Auto) 0.0 Abs Immat Gran (auto) 0.01 Absolute Neuts (auto) 2.5 Absolute Nucleated RBC 0.000 Band Neutrophils % Not Reportable Nucleated RBC % 0.0 Platelet Estimate Slightly decreased Macrocytosis 1+ Ovalocytes Schistocytes None seen Sodium 139 Potassium 4.4 Chloride 105 Carbon Dioxide 27 Anion Gap 7 BUN 32 H Creatinine 1.14 Estim Creat Clear Calc 40 Estimated GFR > 60 Glucose 151 H POC Capillary Glucose 145 H 130 H Calcium 8.8 Total Bilirubin AST ALT Alkaline Phosphatase Total Protein Albumin Urine Color Urine Appearance Urine pH Ur Specific [place] Urine Protein Urine Glucose (UA) Urine Ketones Ur Blood (Man) Urine Nitrate Urine Bilirubin Urine Urobilinogen Add Ur Microanalysis Leukocyte Esterase Rfl Urine RBC Urine WBC Ur Squamous Epith Cells Urine Bacteria Urine Casts Urine Yeast ([place]) Quality VTE Prophylaxis VTE prophylaxis: mechanical ordered
--- NOTE | 2025-03-11 15:05 | PC.NURSE ---
To OR via stretcher.
[2025-03-11] MEDS: LACTATED RINGERS 1,000 ML 30 ML IV CONT (15:20)
--- NOTE | 2025-03-11 15:28 | P.PNAN_ITS ---
Anes - Initial Pre Proc Eval Procedure: Operation Date: 03/11/25 16:00 Proposed Procedures p Cystoscopy, Clot Evacuation - Matt Mills MD Date/Time: 03/11/25 15:28 Surgeon: Gene Pre Op Diagnosis: bladder hematoma, uti Patient Data Age: 79 Gender: M Height: 1.65 m Weight: 67.4 kg Last Vital Signs Temp 35.9 C L 03/11/25 14:00 Pulse 95 03/11/25 14:00 Resp 18 03/11/25 14:00 BP 118/62 03/11/25 14:00 Pulse Ox 100 03/11/25 14:00 O2 Del Method Room Air 03/11/25 08:00 Allergies Allergy/AdvReac Type Severity Reaction Status Date / Time Penicillins Allergy Unknown Hives Verified 03/10/25 14:49 Home Medications ?Medication ?Instructions ?Recorded ?Confirmed ?Type aspirin 81 mg tablet,delayed 81 mg PO HS 11/27/20 03/10/25 History release (Adult Low Dose Aspirin) ferrous sulfate 325 mg (65 mg 325 mg PO TID 11/27/20 03/10/25 History iron) tablet (Feosol) multivitamin (Daily Multi-Vitamin 1 tablet PO DAILY 11/27/20 03/10/25 History tablet) omega-3 fatty acids 1,000 mg 1,000 mg PO DAILY 11/27/20 03/10/25 History capsule (Super [place]-3) ranolazine 500 mg tablet,extended 500 mg PO BID 10/13/22 03/10/25 History release,12 hr sacubitril 24 mg-valsartan 26 mg 1 tablet PO BID #30 tabs 11/15/22 03/10/25 Rx tablet (Entresto) blood sugar diagnostic (OneTouch #200 ea 01/05/23 03/10/25 Rx Verio test strips) carvedilol 3.125 mg tablet (Coreg) 3.125 mg PO DAILY 03/17/23 03/10/25 History flash glucose scanning reader #1 ea 08/31/23 03/10/25 Rx (FreeStyle Drea 2 [place]) isosorbide mononitrate 60 mg 60 mg PO BID #180 tabs 12/26/23 03/10/25 Rx tablet,extended release 24 hr pantoprazole 20 mg tablet,delayed 20 mg PO QAM 3 months #90 tabs 04/05/24 03/10/25 Rx release empagliflozin 5 mg-linagliptin 2.5 2 tablet (2 x 5-2.5-1,000 mg) PO 06/18/24 03/10/25 Rx mg-metformn ER 1,000 mg QAM #180 ea tablet,24hr (Trijardy XR) nitroglycerin 0.4 mg sublingual 0.4 mg sublingual Q5M PRN chest 09/28/24 03/10/25 Rx tablet pain #25 tabs coenzyme Q10 100 mg capsule (Co 100 mg PO DAILY 01/01/25 03/10/25 History Q-10) flash glucose sensor (FreeStyle #13 ea 01/21/25 03/10/25 Rx Drea 2 Sensor kit) levothyroxine 100 mcg tablet 100 mcg PO DAILY #90 tabs 01/22/25 03/10/25 Rx insulin glargine 100 unit/mL (3 12 unit subcut QPM 03/10/25 03/10/25 History mL) subcutaneous pen (Lantus Solostar U-100 Insulin) Laboratory Tests 03/10/25 03/10/25 03/10/25 16:01 16:27 21:39 WBC 4.0 L K/mm3 (4.5-10.0) RBC 2.72 L M/mm3 (4.6-6.20) Hgb 10.2 L g/dL (14.0-18.0) Hct 29.8 L % (42.0-52.0) MCV 109.6 H fl (80-100) MCH 37.5 H pg (26-34) MCHC 34.2 g/dl (32-36) RDW 14.0 % (11.5-14.5) Plt Count 170 k/mm3 (150-375) MPV 9.9 fl (7.4-10.4) Immature Gran % (Auto) 0.3 % (0-0.5) Neut % (Auto) 56.7 % (45.5-73.1) Lymph % (Auto) 29.6 % (18.3-44.2) [place] % (Auto) 10.6 H % (2.6-8.5) Eos % (Auto) 2.3 % (0-4.4) Baso % (Auto) 0.5 % (0.2-1.2) Lymph # (Auto) 1.17 K/mm3 (0.9-3.2) [place] # (Auto) 0.4 K/mm3 (0.1-0.6) Eos # (Auto) 0.1 K/mm3 (0-0.3) Baso # (Auto) 0.0 K/mm3 (0.0-0.1) Abs Immat Gran (auto) 0.01 K/mm3 (0.00-0.031) Absolute Neuts (auto) 2.2 K/mm3 (1.3-6.7) Absolute Nucleated RBC 0.000 K/mm3 (0.0-0.012) Band Neutrophils % Not Reportable Nucleated RBC % 0.0 % (0.0-0.2) Platelet Estimate Adequate (Adequate) Macrocytosis 1+ (NORMAL) Ovalocytes 1+ Schistocytes None seen Sodium 138 mmol/L (137-145) Potassium 4.6 mmol/L (3.4-5.0) Chloride 106 mmol/L (98-107) Carbon Dioxide 23 mmol/L (22-30) Anion Gap 9 mmol/L (4-12) BUN 41 H D mg/dL (9-20) Creatinine 1.25 mg/dL (0.7-1.3) Estim Creat Clear Calc 37 ml/min Estimated GFR 56 L (59 - ) Glucose 216 H mg/dL (65-110) POC Capillary Glucose 252 H mg/dl (65-105) Calcium 9.4 mg/dL (8.4-10.2) Total Bilirubin 0.4 mg/dL (0.2-1.3) AST 26 U/L (17-59) ALT 19 U/L (6-50) Alkaline Phosphatase 59 U/L (38-126) Total Protein 7.0 g/dL (6.3-8.2) Albumin 4.2 g/dL (3.5-5.1) Urine Color Yellow (Yellow) Urine Appearance Turbid H (Clear) Urine pH 5.5 (5.0-9.0) Ur Specific [place] 1.011 (1.001-1.035) Urine Protein 2+ H mg/dL (Negative) Urine Glucose (UA) 3+ H mg/dL (Negative) Urine Ketones Negative mg/dL (Negative) Ur Blood (Man) 3+ H (Negative) Urine Nitrate Negative (Negative) Urine Bilirubin Negative (Negative) Urine Urobilinogen 0.2 mg/dL (<2.0) Add Ur Microanalysis Reviewed Leukocyte Esterase Rfl 3+ H YARELIS/UL (Negative) Urine RBC >100 H /hpf (0-2) Urine WBC >100 H /hpf (0-3) Ur Squamous Epith Cells Moderate /hpf (Few) Urine Bacteria 1+ H /hpf Urine Casts 0-2 Urine Yeast (Budding) Present H /hpf (None) 03/11/25 03/11/25 03/11/25 06:04 07:48 11:34 WBC 4.0 L K/mm3 (4.5-10.0) RBC 2.80 L M/mm3 (4.6-6.20) Hgb 10.4 L g/dL (14.0-18.0) Hct 31.7 L % (42.0-52.0) MCV 113.2 H fl (80-100) MCH 37.1 H pg (26-34) MCHC 32.8 g/dl (32-36) RDW 14.0 % (11.5-14.5) Plt Count 148 L k/mm3 (150-375) MPV 9.9 fl (7.4-10.4) Immature Gran % (Auto) 0.3 % (0-0.5) Neut % (Auto) 63.0 % (45.5-73.1) Lymph % (Auto) 22.1 % (18.3-44.2) [place] % (Auto) 11.3 H % (2.6-8.5) Eos % (Auto) 2.5 % (0-4.4) Baso % (Auto) 0.8 % (0.2-1.2) Lymph # (Auto) 0.88 L K/mm3 (0.9-3.2) [place] # (Auto) 0.5 K/mm3 (0.1-0.6) Eos # (Auto) 0.1 K/mm3 (0-0.3) Baso # (Auto) 0.0 K/mm3 (0.0-0.1) Abs Immat Gran (auto) 0.01 K/mm3 (0.00-0.031) Absolute Neuts (auto) 2.5 K/mm3 (1.3-6.7) Absolute Nucleated RBC 0.000 K/mm3 (0.0-0.012) Band Neutrophils % Not Reportable Nucleated RBC % 0.0 % (0.0-0.2) Platelet Estimate Slightly decreased (Adequate) Macrocytosis 1+ (NORMAL) Ovalocytes Schistocytes None seen Sodium 139 mmol/L (137-145) Potassium 4.4 mmol/L (3.4-5.0) Chloride 105 mmol/L (98-107) Carbon Dioxide 27 mmol/L (22-30) Anion Gap 7 mmol/L (4-12) BUN 32 H mg/dL (9-20) Creatinine 1.14 mg/dL (0.7-1.3) Estim Creat Clear Calc 40 ml/min Estimated GFR > 60 (59 - ) Glucose 151 H mg/dL (65-110) POC Capillary Glucose 145 H mg/dl 130 H mg/dl (65-105) (65-105) Calcium 8.8 mg/dL (8.4-10.2) Total Bilirubin AST ALT Alkaline Phosphatase Total Protein Albumin Urine Color Urine Appearance Urine pH Ur Specific [place] Urine Protein Urine Glucose (UA) Urine Ketones Ur Blood (Man) Urine Nitrate Urine Bilirubin Urine Urobilinogen Add Ur Microanalysis Leukocyte Esterase Rfl Urine RBC Urine WBC Ur Squamous Epith Cells Urine Bacteria Urine Casts Urine Yeast (Budding) Patient hx anesthesia problems: none Family hx anesthesia problems: none Results Review: All pre-operative results and documents have been reviewed as part of the pre- operative evaluation. 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 Chronic kidney disease Diabetic peripheral neuropathy Iron deficiency anemia Osteoarthritis Hypothyroidism Gastroesophageal reflux disease Coronary artery disease 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 Code status: Full code. Smoking status: Never smoker Second hand tobacco smoke exposure: No Alcohol intake: never Drinks per week: 1 Substance use: never Substance use type: does not use Do You Feel Safe in your Home?: Yes Lack of Transportation: No Lack of Food: Never True Current Housing: I Have Housing Concerned About Future Housing: No Difficulty Paying Gas/Electric Bills: No Difficulty Paying for Meds: No Currently Unemployed: No Education: Decline to Answer Difficulty w/ Childcare or Family Care: No Living arrangements: with family Additional living arrangements comments: The patient lives in his own home in [place]. He and his are . 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: No Anes - Eval Final PreProcedure Day of Procedure 03/11/25 15:28 Patient weight: normal Heart: regular rate and rhythm Lungs: clear to auscultation Airway: Mallampati scale class II Neurological: alert and oriented Last oral intake: >/= 8 hours ASA classification: IV Emergent: no Anesthetic plan: proceed Anesthesia type and monitoring: general LMA and standard monitoring Results Review: All pre-operative results and documents have been reviewed as part of the pre- operative evaluation. Informed Consent: The patient's anesthetic plan and its attendant risks and benefits were discussed with the patient/family/POA. Questions were solicited and answers provided to the satisfaction of the patient/family/POA.
[2025-03-11] MEDS: LIDOCAINE 2% GEL UROJET 10 ML PKG MUCOUS MEM (15:39)
--- NOTE | 2025-03-11 16:07 | P.OP_ITS ---
Procedure Note - Detailed Date of Procedure 03/11/25 Pre-op Diagnosis bladder hematoma, uti Post-op Diagnosis Same Procedure Performed Cystoscopy with clot evacuation bladder fulguration with Webber catheter placement [address] Matt Mills MD Anesthesia General Description of Procedure Patient was taken to the operative suite correctly identified. Once anesthesia was obtained was placed in dorsal lithotomy position and prepped and draped usual sterile fashion. Twenty-two Vietnamese scope inserted bladder direct vision. He has lateral lobe hypertrophy and a large median lobe protruding into the bladder. This was fairly vascular and oozing slightly. Upon entering the bladder he did have some debris with small clots which were evacuated. Reinspection revealed no bladder tumors. He was using at the medial lobe. I used the Bugbee to fulgurate the area. 2% viscous lidocaine was then inserted into the urethra and a 20 Vietnamese Webber was placed with 15 cc in the balloon. This was connected to continuous bladder irrigation and patient is taken recovery stable condition. Hopefully will be able to wean it off over the next 24 hours. This completes dictation. Please send a copy of op note to my office Estimated Blood Loss 0 Drains Yes Packing No Pathology None sent Complications No immediate complications Condition Stable Disposition PACU
[2025-03-11 16:36] LABS: Glucose Point of Care 96 mg/dl (65-105)
--- NOTE | 2025-03-11 17:30 | PC.NURSE ---
Back from OR via stretcher.
[2025-03-11] MEDS: DOCUSATE SODIUM 100 MG CAPSULE PO ×2 (17:52→20:29)
[2025-03-11] MEDS: PANTOPRAZOLE SOD SESQUIHYDRATE 20 MG TAB PO (17:52)
[2025-03-11] MEDS: FERROUS SULFATE 325 MG TABLET DR BY MOUTH (17:53)
[2025-03-11] MEDS: SACUBITRIL/VALSARTAN 24-26 MG TABLET 1 TAB PO (20:29)
[2025-03-11] MEDS: INSULIN GLARGINE (*BKC) 100 UNITS/ML 10 UNITS SUB-Q (20:29)
[2025-03-11] MEDS: ASPIRIN 81 MG ENTERIC TABLET PO (20:29)
[2025-03-11 23:02] LABS: Glucose Point of Care 176 mg/dl (65-105)
[2025-03-12] MEDS: LEVOTHYROXINE SODIUM 100 MCG TABLET PO (05:31)
[2025-03-12 05:50] VITALS: BP 109/55; PULSE 55; RESP 18; TEMP 36.2; O2SAT 100
[2025-03-12 06:40] LABS: Hematocrit 31.4 % (42.0-52.0); Hemoglobin 10.1 g/dL (14.0-18.0); Mean Corpuscular HGB Conc 32.2 g/dl (32-36); Mean Corpuscular Hemoglobin 37.4 pg (26-34); Mean Corpuscular Volume 116.3 fl (80-100); Mean Platelet Volume 9.7 fl (7.4-10.4); Platelet Count Result 127 k/mm3 (150-375); Red Cell Distribution Width 14.4 % (11.5-14.5); White Blood Count 4.1 K/mm3 (4.5-10.0)
[2025-03-12 06:51] LABS: Anion Gap 4 mmol/L (4-12); Blood Urea Nitrogen 26 mg/dL (9-20); Calcium 8.6 mg/dL (8.4-10.2); Carbon Dioxide 28 mmol/L (22-30); Chloride 107 mmol/L (98-107); Estimated CRCL calculation 41 ml/min; Estimated Glomerular Filt Rate > 60; Glucose 145 mg/dL (65-110); Potassium 4.3 mmol/L (3.4-5.0); Sodium 139 mmol/L (137-145)
[2025-03-12 07:25] LABS: Glucose Point of Care 150 mg/dl (65-105)
[2025-03-12] MEDS: SACUBITRIL/VALSARTAN 24-26 MG TABLET 1 TAB PO (08:08)
[2025-03-12] MEDS: FERROUS SULFATE 325 MG TABLET DR BY MOUTH ×2 (08:08→12:04)
[2025-03-12] MEDS: ISOSORBIDE MONONITRATE 60 MG TAB.ER.24H PO (08:08)
[2025-03-12] MEDS: PANTOPRAZOLE SOD SESQUIHYDRATE 20 MG TAB PO (08:08)
[2025-03-12] MEDS: DOCUSATE SODIUM 100 MG CAPSULE PO (08:08)
--- NOTE | 2025-03-12 10:04 | P.DS_ITS ---
DS: Admitting Diagnosis Discharge Date 03/12/25 Admitting Diagnosis hematuria DS: Discharge Diagnosis Discharge Diagnosis (1) Acute UTI: Code(s): N39.0 - Urinary tract infection, site not specified Status: Acute Assessment and Plan: Secondary to chronic Webber being clotted off and urinary retention R/O UTI (2) Hematoma of bladder wall: Code(s): S37.22XA - Contusion of bladder, initial encounter Status: Acute Assessment and Plan: Chronic Webber exchanged for a [address] showed clot in the bladder Urology consulted :S/P Cystoscopy with clot evacuation bladder fulguration with Webber catheter placement [address] (3) Insulin dependent type 2 diabetes mellitus: Code(s): E11.9 - Type 2 diabetes mellitus without complications; Z79.4 - long-term (current) use of insulin Status: Acute Assessment and Plan: Diabetic diet (4) Hypothyroidism (acquired): Code(s): E03.9 - Hypothyroidism, unspecified Status: Acute Assessment and Plan: Continue levothyroxine (5) CKD (chronic kidney disease), stage III: Code(s): N18.30 - Chronic kidney disease, stage 3 unspecified Status: Acute Assessment and Plan: BMP in morning (6) Myelodysplasia (myelodysplastic syndrome): Code(s): D46.9 - Myelodysplastic syndrome, unspecified Status: Acute Assessment and Plan: Chronic Webber due to neurogenic bladder Restart home medications (7) Coronary artery disease: Qualifiers: Coronary Disease-Associated Artery/Lesion type: [place] artery [place] vs. transplanted heart: [place] heart Associated angina: without angina Qualified Code(s): I25.10 - Atherosclerotic heart disease of [place] coronary artery without angina pectoris Code(s): I25.10 - Atherosclerotic heart disease of [place] coronary artery without angina pectoris Status: Acute Assessment and Plan: Continue Entresto, and Imdur DS: Summary Hospital Course Hospital Course: per HPI: 79-year-old male diabetes type 2, myelodysplastic syndrome, neurogenic bladder with chronic Webber, chronic kidney disease, iron deficiency anemia, hypothyroidism and CAD presents the hospital with abdominal pain. Patient has a chronic Webber and he states that yesterday he noticed that his urine was slightly bloody. Today he states that his Webber catheter stopped draining and causing him abdominal pain. Patient denies nausea vomiting fever chills. In the ED his lab work shows leukopenia at 4.0, hemoglobin of 10.2, BUN of 41, creatinine of 1.25 which is around baseline, GFR of 56, glucose of 216, urine is turbid with 3+ blood, 3+ leukocyte esterase, over 100 RBCs over 100 wbc's with 1+ bacteria. Patient's Webber was flushed and was draining well. CT of the abdomen shows Findings within the bladder consistent with this patient's presentation, with a focus of increased attenuation centrally within the bladder, likely representing hematoma. Urology was consulted with recommendations for through a Webber and CBI overnight. 03/11/25 patient was seen and examined at bedside. he is feeling Fine denies any chest pain, abd pain, nausea or vomiting. hematuria improving. catheter is working. urology team on board.Ct showed clot in the bladder. 03/12/25 Patient was seen and examined at bedside. he is feeling fine . denies any pain, SOb, abd pain, N/V underwent Cystoscopy with clot evacuation bladder fulguration with Webber catheter placement [address] Webber is working no hematuria. will discharge patient home and follow up as outpatient Status at Discharge Overall status at discharge: patient is back to baseline Time Spent with Patient Time attestation: Total time spent providing and/or coordinating discharge services: Time spent: Greater than 30 minutes Exam Narrative: General: well appearing, appears stated age. HEENT: normocephalic, atraumatic. Mucous membranes moist. EOMI, PERRLA, bilateral sclera anicteric, no conjunctival injection. Neck supple without JVD, lymphadenopathy, or bruit. Respiratory: clear to ascultation bilaterally. No rales/rhonic/wheezes. Cardiovascular: Regular rate and rhythm, normal S1-S2 upon ascultation. No mu rmurs, rubs, or clicks. PMI is nondisplaced, capillary refill less than 3 second. Abdomen: Soft, round, no pulsatile masses, nondistended and nontender. No rebound, no guarding. No CVA tenderness, no hepatosplenomegaly. Bowel sounds present to all four quadrants. No high pitch or tinkling sounds, resonant to percussion. Extremities: No cyanosis, clubbing, or edema present. Pulses are palpable 2/2. Active ROM to all four extremities. Neuro: Alert and orientated x 4. PERRLA. Cranial nerves 2-12 intact without focal deficit. Skin: Warm, dry, and intact, without rash, erythema, or lesion. Psych: pleasant, cooperative, normal speech, normal affect, no hallucinations, no dysarthia Webber catheter DS: Data Data Completed and Pending Labs on day of discharge: Labs from last 24 hours 03/12/25 03/12/25 03/11/25 07:21 06:34 20:35 WBC 4.1 L RBC 2.70 L Hgb 10.1 L Hct 31.4 L MCV 116.3 H MCH 37.4 H MCHC 32.2 RDW 14.4 Plt Count 127 L MPV 9.7 Sodium 139 Potassium 4.3 Chloride 107 Carbon Dioxide 28 Anion Gap 4 BUN 26 H Creatinine 1.11 Estim Creat Clear Calc 41 Estimated GFR > 60 Glucose 145 H POC Capillary Glucose 150 H 176 H Calcium 8.6 03/11/25 03/11/25 16:35 11:34 WBC RBC Hgb Hct MCV MCH MCHC RDW Plt Count MPV Sodium Potassium Chloride Carbon Dioxide Anion Gap BUN Creatinine Estim Creat Clear Calc Estimated GFR Glucose POC Capillary Glucose 96 130 H Calcium Discharge Plan Discharge Attending physician on discharge: Huber Redding Consulting providers: Damir Luna; Curtis Stack Discharging Clinician: Huber Redding Anticipated Discharge Date/Time: 03/12/25 17:47 Patient Disposition: Home Activity: as tolerated Diet: as tolerated Discharge Instructions: follow with PCP in one week Follow with urology clinic as outpatient Patient Instructions: Antibiotic Form, Heart Failure (GEN) Patient Language: Yi Stand Alone Forms: General Discharge Information Follow-up/Referrals: Matt Mills MD [Physician] - Call for Appointment Jay Jay Reynoso MD [Primary Care Provider] - 1 Week Discharge Medications: Continued aspirin [Adult Low Dose Aspirin] 81 mg tablet,delayed release (DR/EC) 81 mg PO HS omega-3 fatty acids [Super [place]-3] 1,000 mg capsule 1,000 mg PO DAILY multivitamin [Daily Multi-Vitamin] Tablet 1 tablet PO DAILY ferrous sulfate [Feosol] 325 mg (65 mg iron) tablet 325 mg PO TID Patient Comments: Supposed to be TID but takes 1 in AM and that 2 PM Entresto 24-26 mg tablet 1 tablet PO BID Qty: 30 0RF (DME) FreeStyle Drea 2 [place] Misc See Rx Instructions .Route Qty: 1 0RF Rx Instructions: As directed isosorbide mononitrate 60 mg tablet extended release 24 hr 60 mg PO BID Qty: 180 3RF pantoprazole 20 mg tablet,delayed release (DR/EC) 20 mg PO QAM 90 Days Qty: 90 3RF ranolazine 500 mg tablet extended release 12 hr 500 mg PO BID carvedilol [Coreg] 3.125 mg Tablet 3.125 mg PO DAILY Patient Comments: MD told to stop but reduced it to daily as felt it was too much to stop Rx Instructions: must administer with a meal/food insulin glargine [Lantus Solostar U-100 Insulin] 100 unit/mL (3 mL) insulin pen 12 unit subcut QPM coenzyme Q10 [Co Q-10] 100 mg capsule 100 mg PO DAILY (DME) OneTouch Verio test strips Strip See Rx Instructions .ROUTE .MEDSUPPLY Qty: 200 3RF Rx Instructions: Use to test blood sugar bid, daily and as directed Trijardy XR 5-2.5-1,000 mg tablet, IR - ER, biphasic 24hr 2 tablet PO QAM Qty: 180 4RF nitroglycerin 0.4 mg tablet, sublingual 0.4 mg SUBLINGUAL Q5M PRN (Reason: chest pain) Qty: 25 2RF (DME) FreeStyle Drea 2 Sensor Kit See Rx Instructions .Route Qty: 13 1RF Rx Instructions: As directed levothyroxine 100 mcg tablet 100 mcg PO DAILY Qty: 90 1RF Date of admission: 03/11/25 13:02 Primary Care Provider: Jay Jay Reynoso Admitting Provider: Akash Acosta Attending physician on admission: Huber Redding Condition: Stable Quality VTE Prophylaxis VTE prophylaxis: mechanical ordered
[2025-03-12 11:44] LABS: Glucose Point of Care 257 mg/dl (65-105)
[2025-03-12] MEDS: INSULIN ASPART (*BKC) 100 UNITS/ML SUB-Q (12:08)
== END 2025-03-12 13:32 | disposition home or self-care (01) | DRG 664 ==
LOC: ANHED 19:50 → ANH3MEDSUR 20:08
PROVIDERS: Nurse Practitioner Gerontology; Urology; Admitting Provider Internal Medicine; Emergency Provider Emergency Medicine; PCP Family Medicine; Visit Provider Internal Medicine
PROC: 0TCB8ZZ Extirpation of Matter from Bladder, Via Natural or Artificial Opening Endoscopic (ICD-10-PCS; CPT 52001; principal; 2025-03-11 16:00)
DX: T83.511A Infection and inflammatory reaction due to indwelling urethral catheter, initial encounter (principal); N39.0 Urinary tract infection, site not specified; N31.9 Neuromuscular dysfunction of bladder, unspecified; T83.091A Other mechanical complication of indwelling urethral catheter, initial encounter; N32.89 Other specified disorders of bladder; R33.9 Retention of urine, unspecified; E11.22 Type 2 diabetes mellitus with diabetic chronic kidney disease; N18.30 Chronic kidney disease, stage 3 unspecified; E11.42 Type 2 diabetes mellitus with diabetic polyneuropathy; E03.9 Hypothyroidism, unspecified; D46.9 Myelodysplastic syndrome, unspecified; I25.10 Atherosclerotic heart disease of native coronary artery without angina pectoris; K21.9 Gastro-esophageal reflux disease without esophagitis; D50.9 Iron deficiency anemia, unspecified; M19.90 Unspecified osteoarthritis, unspecified site; Z96.642 Presence of left artificial hip joint; Z86.73 Personal history of transient ischemic attack (TIA), and cerebral infarction without residual deficits; Z85.828 Personal history of other malignant neoplasm of skin; Z79.4 Long term (current) use of insulin
CPT/HCPCS: 36415; 74177; 80048; 80053; 81001; 82948; 85025; 85027; 96361; 96365; 96375; 96376; 99285; A9270; G0378; J0696; J1815; J2003; J2270; J2405; J2704; J3010; J7030; J7120; Q9967

== ENCOUNTER 2025-03-25 15:33 | Emergency (ER) | payer MEDICARE, SELFPAY ==
--- OUTSIDE RECORDS SUMMARY | 2025-03-25 15:39 | XMS_ITS | Encounter Summary ---
Author Organization [employer] Address [address] [place] [address] Care Team Providers Care Ground Equipment Mechanic Name Role Phone Unavailable Primary Care Provider Unavailabl e Encounter Details Date Type Department Care Team (Late st Contact Info) Description 11/13/1999 Outpatient Historical Division of Neurology [address] [facility] [address] [address] (Excluded Provider) [place] [address] [facility] [address] [place] [address] Social History Tobacco Use Types Packs/Day Years Used Date Smoking Tobacco: Never Assessed Sex and Gender Information Value Date Recorded Sex Assigned at Not on file 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
--- OUTSIDE RECORDS SUMMARY | 2025-03-25 15:39 | XMS_ITS | Encounter Summary ---
Author Organization [employer] Address 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
--- OUTSIDE RECORDS SUMMARY | 2025-03-25 15:39 | XMS_ITS | Clinical Summary ---
Author Organization [facility] [address] [facility] Address [address] [place] [address] Care Team Providers Care Cardiology Rn Name Role Phone Jay Jay Reynoso MD Unavailable [phone] Jay Jay Reynoso MD Primary Care Provider [phone] Allergies Active Allergy Reactions Criticality Noted Date [...] (100 mg total) by mouth daily Active -zpr k-Tjsqztjm-jpn al 27 mg iron-1.13 mg-581.92 mg capsule [...] (06/22/2019): Added automatically from request for surgery [id number] Chest pain 06/22/2019 Overview (06/22/2019): Added automatically from request for surgery [id number] Encounters Date Type Department Care Team Description 01/09/2025 2:00 PM CDT Office Visit [facility] Cardiology [address] [place] [address] Riccardo Chang MD Coronary artery disease of eastern shoshone artery of eastern shoshone heart with stable angina pectoris (Primary Dx); [...] week 08/03/2023 How often do you attend [facility] or zoroastrian services? 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 [employer] 01/22/2020 [id number] / / Cardiva Medical Inc Device Closure Vascade Od5 Fr Femoral Artery [id number]-[id number] - [id number] Implanted:Qty: 1 on 11/04/2022 by Riccardo Chang MD at [facility] 700-500DX-0 5U / / Giron & Nephew/Richco/ Ortho R3 56mm 3 Hole Hip Standard Shell Acetabular [id number] - [id number] Implanted:Qty: 1 on 08/02/2023 by Galileo Klein MD at [facility] Left: Hip Giron & Nephew/Richco/Or tho [id number] 09/16/2031 [id number] / / [id number] Giron & Nephew/Richco/ Ortho R3 56mm 40mm 20d Liner Acetabular Xlpe [id number] - [id number] Implanted:Qty: 1 on 08/02/2023 by Galileo Klein MD at [facility] Left: Hip Giron [employer] Nephew/Richco/Or tho [id number] 05/01/2033 [id number] / / [id number] Giron & Nephew/Richco/ Ortho Polarstem Cementless Hip 6 Standard Stem Femoral Titanium Mcintosh [id number] - [id number] Implanted:Qty: 1 on 08/02/2023 by Galileo Klein MD at [facility] Left: Hip Giron [employer] Nephew/Richco/Or tho [id number] 04/15/2029 [id number] / / [id number] Giron & Nephew/Richco/ Ortho 40mm Modular Hip Head Femoral Oxinium [id number] - [id number] Implanted:Qty: 1 on 08/02/2023 by Galileo Klein MD at [facility] Left: Hip Giron [employer] Nephew/Richco/Or tho [id number] 04/29/2033 [id number] / / [id number] Giron & Nephew/Richco/ Ortho Modular Neck Hip +0mm 12/14 Taper Sleeve Femoral Titanium [id number] - [id number] Implanted:Qty: 1 on 08/02/2023 by Galileo Klein MD at [facility] Left: Hip Giron & Nephew/Richco/Or tho [id number] 04/25/2033 [id number] / / [id number] Procedures Procedure Name Priority Date/Time Associated Diagnosis Comments POCT LIPID PANEL Routine 01/09/2025 1:48 PM CDT Coronary artery disease of eastern shoshone artery of eastern shoshone heart with stable angina pectoris EGFR Routine [...] [address] Department [place] [address] from Last 3 Months or Most Recently Relevant to Health Maintenance Insurance [place] [phone] Advance Directives For more information, please contact: [phone] * Full Code (Latest Code Status on File) Date Activated Date Inactivated Comments 08/02/2023 9:03 AM 08/03/2023 8:37 PM Care Teams Cardiology Rn Relationship Specialty Start Date End Date Jay Jay Reynoso MD PCP - General Family Medicine 09/08/20 Jay Jay Reynoso MD Family Medicine 11/29/19
--- OUTSIDE RECORDS SUMMARY | 2025-03-25 15:39 | XMS_ITS | Encounter Summary ---
Author Organization [employer] Address 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
--- OUTSIDE RECORDS SUMMARY | 2025-03-25 15:39 | XMS_ITS ---
Author Organization [facility] Address [address] [facility] [address] [place] [address] Care Team Providers Care Post Secondary Professional Name Role Phone Jay Jay Reynoso Primary Care Provider Unavaila Jay Jay King Unavailable [phone] Alka Reynoso MD Unavailable Unavailabl e REASON [...] Provider Diagnosis -[facility] [facility] [address] [facility] [address] [place] [address] 12/28/2023 Jay Jay Howard Plan Of Treatment No Information Progress Notes * Gaby RAMIREZOB:1944 (79 yo M)Acc No.[id number]:12/28/2023 Progress Note Patient: Mariel REYES Kai Provider: Mariel Howard MD :1945 A ge:78 Y S ex:Male Date:12/28/2023 Address:[address] [place] [address] [facility], [id number] Pcp:Jay Jay Reynoso Subjective: * Chief Complaints: [...] Electronic signature of Blue Howard MD on 03/25/2025 at 03:39 PM CDT Sign off status: Pending * Provider: Mariel Howard MD Date: 12/28/2023 Generated for Cody uriostegui/Ibrahima/Crystal on: 0 03/25/2025 03:39 PM CDT
--- OUTSIDE RECORDS SUMMARY | 2025-03-25 15:39 | XMS_ITS | Patient Health Record ---
Author Organization [facility] Address [address] [facility] [address] [place] [address] Care Team Providers Care Media Theorist And Author Of Name Role Phone Jay Jay Reynoso Primary Care Provider Jay Jay Beck Unavailable [phone] Alka Reynoso MD Unavailable Unavailabl e Allergies [...] Risk Notes Problem Fear of medical treatment (101854509) Fear of injections and transfusions (F40.231) Active confirmed Problem Localized, primary osteoarthritis of the pelvic region and thigh (976751624) Unilateral primary osteoarthritis, left hip (M16.12) Active confirmed Problem Cervical spondylosis without myelopathy (888981591) Spondylosis without myelopathy or radiculopathy, cervical region (M47.812) Active confirmed Plan Of Treatment Pending Test Test Name Order Date X ray : Hip, left 05/02/2023 Insurance Providers Payer Name Payer Address Payer Phone Subscriber Number Group Number Insured Name Patient Relationship to Insured Coverage Start Date Coverage End Date [employer] Medicare Advantage [address] [address] [place] [address] [id number] Kai Stewart Self - patient is the insured Medical (General) History Medical History History ICD Code Arthritis: Yes Congestive Heart Failure: Yes Diabetes, type I: Yes High blood pressure: Yes Surgical History Surgery Date(Month/Year)
--- OUTSIDE RECORDS SUMMARY | 2025-03-25 15:39 | XMS_ITS | Encounter Summary ---
Author Organization [facility] Address [address] [place] [address] Phone Care Team Providers Care Factory Representative Name Role Phone Diego Nunez MD Primary Care Provider Jay Jay Reynoso MD Unavailable [phone] Ravi Rosibelami Muniz DPT Unavailable [phone] Jay Jay Reynoso MD Primary Care Provider [phone] Encounter Details Date Type Department Care Team (Late st Contact Info) Description 07/16/2020 Telephone [facility] Physical Therapy [address] [facility] [address] [place] [address] Fidelia Macias B.A. 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 Gender Identity Not on file Sexual Orientation Not on file documented as of this encounter Plan of Treatment Not on file documented as of this encounter Visit Diagnoses Not on filedocumented in this encounter Care Teams Factory Representative Relationship Specialty Start Date End Date Diego Nunez MD [address] [address] PCP - General Internal Medicine 11/29/19 09/07/20 Jay Jay Reynoso MD [address] [facility] [address] [place] [address] PCP - General Family Medicine 09/08/20 Jay Jay Reynoso MD [address] [facility] [address] [place] [address] Family Medicine 11/29/19 Rosibel Rodrigues DPT [address] [facility] [address] [place] [address] Physical Therapist Physical Therapy 06/25/20 09/01/20 documented as of this encounter
--- OUTSIDE RECORDS SUMMARY | 2025-03-25 15:39 | XMS_ITS | Clinical Summary ---
Author Organization [facility] Address [address] [facility] [place] [address] Care Team Providers Care Cover Assembler Name Role Phone Jay Jay Reynoso MD Primary Care Provider [phone] Source Comments [facility],non-[facility] Affiliates and Associated Physician Practices is amultiple site organization consisting of ambulatory clinics and hospital sitesin [place], [place] and [place]. This disclosure is being madepursuant to the Care Everywhere program and may not contain all information available regarding this patient. Last updated 18.[facility] Allergies Active Allergy Reactions Criticality Noted Date [...] on file Legal Sex Male 6:18 AM PRECAST WORKER Gender Identity Male 04/11/2021 8:06 AM CDT Sexual Orientation Not on file Last Filed Vital Signs Vital Sign Reading Time Taken Comments Blood Pressure 107/71 12/22/2022 2:45 PM PRECAST WORKER Pulse 72 12/22/2022 2:45 PM PRECAST WORKER Temperature 36.8 C (98.2 F) 12/22/2022 2:45 PM PRECAST WORKER Respiratory Rate 16 12/22/2022 2:45 PM PRECAST WORKER Oxygen Saturation 98% 12/22/2022 2:45 PM PRECAST WORKER Inhaled Oxygen Concentration - - Weight 68 kg (150 lb) 12/22/2022 10:19 AM PRECAST WORKER Height 165.1 cm (5' 5) 12/22/2022 9:57 AM PRECAST WORKER Body Mass Index 24.96 12/22/2022 9:57 AM PRECAST WORKER Plan of Treatment Health Maintenance Due Date [...] to complete this topic Insurance [address] [place], [place] [id number] [place] [address] MEDICARE ADV [facility] MANAGED MEDICARE ADV SELF PAY NO INSURANCE Member Subscriber Plan / Payer (Ef fective for All Dates) Name:AshleyDarien perez Member ID:Not on file Relation to Subscriber:Not on file Name:DARIEN RAMIREZ Subscriber ID:Not on file (Home) Address: [address] [place] [address] [place] [address] Payer ID:Not on file Group ID:Not on file Type:Self Pay Address: [place], [place] SELF PAY NO INSURANCE Member Subscriber Plan / Payer (Ef fective for All Dates) Name:AshleyDarien Member ID:Not on file Relation to Subscriber:Not on file Name:ASHLEYDARIEN Subscriber ID:Not on file Address: [address] [place] [address] Payer ID:Not on file Group ID:Not on file Type:Self Pay Address: [facility] MANAGED MEDICARE ADV SELF PAY NO INSURANCE Member Subscriber Plan / Payer (Ef fective for All Dates) Name:Darien Ramirez Member ID:Not on file Relation to Subscriber:Not on file Name:DARIEN RAMIREZ Subscriber ID:Not on file Address: [address] [place] [address] Payer ID:Not on file Group ID:Not on file Type:Self Pay Address: [facility] MANAGED MEDICARE ADV SELF PAY NO INSURANCE Member Subscriber Plan / Payer (Ef fective for All Dates) Name:Darien Ramirez Member ID:Not on file Relation to Subscriber:Not on file Name:DARIEN RAMIREZ Subscriber ID:Not on file Address: [address] [place] [address] Payer ID:Not on file Group ID:Not on file Type:Self Pay Address: [facility] MANAGED MEDICARE ADV Care Teams Cover Assembler Relationship Specialty Start Date End Date Jay Jay Reynoso MD [facility] [place] [address] PCP - General 03/29/12
--- OUTSIDE RECORDS SUMMARY | 2025-03-25 15:39 | XMS_ITS | Clinical Summary ---
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
--- OUTSIDE RECORDS SUMMARY | 2025-03-25 15:39 | XMS_ITS | Referral Summary ---
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 Gender Identity Not on file Sexual Orientation [...] on file Medical Devices Implanted Type Area Projection Engineer Device Identifier Shelf Expiration Date Model / Serial / Lot [employer] [id number] Device Closure Angio-Seal Vip Bondek-Plus Polyglyd L70 Cm Od6 Fr Odsec.035 In Vascular - [id number] Implanted:Qty: 1 on 07/19/2019 by Riccardo Chang MD at [facility] [employer] 01/22/2020 [id number] / / Cardiva Medical Inc Device Closure Vascade Od5 Fr Femoral Artery [id number] - [id number] Implanted:Qty: 1 on 11/04/2022 by Riccardo Chang MD at [facility] 700-500DX-0 5U / / Giron & Nephew/Richco/ Ortho R3 56mm 3 Hole Hip Standard Shell Acetabular [id number] - [id number] Implanted:Qty: 1 on 08/02/2023 by Galileo Klein MD at [facility] Left: Hip Giron [employer] Nephew/Richco/Or tho [id number] 09/16/2031 [id number] / / [id number] Giron & Nephew/Richco/ Ortho R3 56mm 40mm 20d Liner Acetabular Xlpe [id number] - [id number] Implanted:Qty: 1 on 08/02/2023 by Galileo Klein MD at [facility] Left: Hip Giron [employer] Nephew/Richco/Or tho [id number] 05/01/2033 [id number] / / [id number] Giron & Nephew/Richco/ Ortho Polarstem Cementless Hip 6 Standard Stem Femoral Titanium Mcintosh [id number] - [id number] Implanted:Qty: 1 on 08/02/2023 by Galileo Klein MD at [facility] Left: Hip Giron [employer] Nephew/Richco/Or tho [id number] 04/15/2029 [id number] / / [id number] Giron & Nephew/Richco/ Ortho 40mm Modular Hip Head Femoral Oxinium 59409100 - [id number] Implanted:Qty: 1 on 08/02/2023 by Galileo Klein MD at [facility] Left: Hip Giron [employer] Nephew/Richco/Or tho [id number] 04/29/2033 [id number] / / [id number] Giron & Nephew/Richco/ Ortho Modular Neck Hip +0mm 12/14 Taper Sleeve Femoral Titanium [id number] - [id number] Implanted:Qty: 1 on 08/02/2023 by Galileo Klein MD at [facility] Left: Hip Giron [employer] Nephew/Richco/Or tho [id number] 04/25/2033 [id number] / / [id number] Procedures Procedure Name Priority Date/Time Associated Diagnosis Comments POCT LIPID PANEL Routine 01/09/2025 1:48 PM CDT Coronary artery disease of confederated sal[place] artery of confederated salish heart with stable angina pectoris EGFR Routine [...] LAB BLOOD ORDERABLES Final Res ult [facility] [address] [facility] Department [place] [address] from Last 3 Months or Most Recently Relevant to Health Maintenance Insurance Member Subscriber Plan / Payer (Ef fective 2022-Present) Name:Darien Guzman Relation to Subscriber:Self Name:Darien Guzman Payer ID:[id number] (NAIC) Type:[facility] MEDICARE Address: [place] [id number] [facility] MEDICARE ADVANTAGE Advance Directives For more information, please contact: [phone] * Full Code (Latest Code Status on File) Date Activated Date Inactivated Comments 08/02/2023 9:03 AM 08/03/2023 8:37 PM Care Teams Thread Separator Relationship Specialty Start Date End Date Jay Jay Reynoso MD PCP - General Family Medicine 09/08/20 Jay Jay Reynoso MD Family Medicine 11/29/19
--- OUTSIDE RECORDS SUMMARY | 2025-03-25 15:39 | XMS_ITS | Encounter Summary ---
Author Organization [employer] Address [address] [place] [address] Care Team Providers Care Plant Nursery Worker Name Role Phone Unavailable Primary Care Provider Unavailabl e Encounter Details Date Type Department Care Team (Late st Contact Info) Description 01/26/2000 Outpatient Historical Division of Neurology [address] [facility] [address] [address] (Excluded Provider) [place] [address] [address] [facility] [address] [place] [address] Social History Tobacco Use Types Packs/Day Years Used Date Smoking Tobacco: Never Assessed Sex and Gender Information Value Date Recorded Sex Assigned at Not on file 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
--- OUTSIDE RECORDS SUMMARY | 2025-03-25 15:39 | XMS_ITS | Encounter Summary ---
Author Organization [employer] Address [address] [place] [address] Care Team Providers Care Actuarial Analyst Name Role Phone Unavailable Primary Care Provider Unavailabl e Encounter Details Date Type Department Care Team (Late st Contact Info) Description 12/14/1999 Outpatient Historical Division of [facility] [address] [facility] [address] [address] (Excluded Provider) [place] [address] [facility] [address] [place] [address] Social History Tobacco Use Types Packs/Day Years Used Date Smoking Tobacco: Never Assessed Sex and Gender Information Value Date Recorded Sex Assigned at Not on file 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
--- OUTSIDE RECORDS SUMMARY | 2025-03-25 15:39 | XMS_ITS | Encounter Summary ---
Author Organization [employer] Address 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
[2025-03-25 15:46] VITALS: BP 134/76; PULSE 86; RESP 18; TEMP 36.9; O2SAT 98
--- OUTSIDE RECORDS SUMMARY | 2025-03-25 16:25 | XMS_ITS | Clinical Summary ---
Author Organization [facility] Global Active Address [address] [facility] [place] [address] Care Team Providers Care Debrander Name Role Phone Jay Jay Reynoso MD Primary Care Provider [phone] [facility] Global Active,[facility] Affiliates and Associated Physician Practices is amultiple site organization consisting of ambulatory clinics and hospital sitesin [place], [place], [place] and [place]. This disclosure is being madepursuant to the Care Everywhere program and may not contain all information available regarding this patient. Last updated 18.[facility] Global Active Allergies Active Allergy Reactions Criticality Noted Date [...] on file Legal Sex Male 6:18 AM TRAFFIC ANALYST Gender Identity Male 04/11/2021 8:06 AM CDT Sexual Orientation Not on file Last Filed Vital Signs Vital Sign Reading Time Taken Comments Blood Pressure 107/71 12/22/2022 2:45 PM TRAFFIC ANALYST Pulse 72 12/22/2022 2:45 PM TRAFFIC ANALYST Temperature 36.8 C (98.2 F) 12/22/2022 2:45 PM TRAFFIC ANALYST Respiratory Rate 16 12/22/2022 2:45 PM TRAFFIC ANALYST Oxygen Saturation 98% 12/22/2022 2:45 PM TRAFFIC ANALYST Inhaled Oxygen Concentration - - Weight 68 kg (150 lb) 12/22/2022 10:19 AM TRAFFIC ANALYST Height 165.1 cm (5' 5) 12/22/2022 9:57 AM TRAFFIC ANALYST Body Mass Index 24.96 12/22/2022 9:57 AM TRAFFIC ANALYST Plan of Treatment Health Maintenance Due Date [...] to complete this topic Insurance [address] [place], [place] [id number] [place] [address] [place] [address] [facility] MANAGED MEDICARE ADV SELF PAY NO INSURANCE Member Subscriber Plan / Payer (Ef fective for All Dates) Name:AshleyDarien perez Member ID:Not on file Relation to Subscriber:Not on file Name:DARIEN RAMIREZ Subscriber ID:Not on file (Home) Address: [address] [place] [address] [place] [address] Payer ID:Not on file Group ID:Not on file Type:Self Pay Address: [place] SELF PAY NO INSURANCE Member Subscriber Plan / Payer (Ef fective for All Dates) Name:AshleyDarien Member ID:Not on file Relation to Subscriber:Not on file Name:ASHLEYDARIEN Subscriber ID:Not on file Address: [address] [place] [address] Payer ID:Not on file Group ID:Not on file Type:Self Pay Address: [facility] MANAGED MEDICARE ADV SELF PAY NO INSURANCE Member Subscriber Plan / Payer (Ef fective for All Dates) Name:Darien Ramirez Member ID:Not on file Relation to Subscriber:Not on file Name:DARIEN RAMIREZ Subscriber ID:Not on file Address: [address] [place] [address] Payer ID:Not on file Group ID:Not on file Type:Self Pay Address: [facility] MANAGED MEDICARE ADV SELF PAY NO INSURANCE Member Subscriber Plan / Payer (Ef fective for All Dates) Name:Darien Ramirez Member ID:Not on file Relation to Subscriber:Not on file Name:DARIEN RAMIREZ Subscriber ID:Not on file Address: [address] [place] [address] Payer ID:Not on file Group ID:Not on file Type:Self Pay Address: [facility] MANAGED MEDICARE ADV Care Teams Debrander Relationship Specialty Start Date End Date Jay Jay Reynoso MD [facility] [place] [address] PCP - General 03/29/12
--- OUTSIDE RECORDS SUMMARY | 2025-03-25 16:25 | XMS_ITS | Clinical Summary ---
Author Organization [facility] [address] [facility] Address [address] [place] [address] Care Team Providers Care Experimental Box Tester Name Role Phone Jay Jay Reynoso MD Unavailable Jay Jay Reynoso MD Primary Care Provider [phone] Allergies Active Allergy Reactions Criticality Noted Date [...] (100 mg total) by mouth daily Active -ern d-Zujmkbbu-wxq al 27 mg iron-1.13 mg-581.92 mg capsule [...] (06/22/2019): Added automatically from request for surgery [id number] Chest pain 06/22/2019 Overview (06/22/2019): Added automatically from request for surgery [id number] Encounters Date Type Department Care Team Description 01/09/2025 2:00 PM CDT Office Visit [facility] Cardiology [address] [place] [address] Riccardo Chang MD Coronary artery disease of [place] artery of [place] heart with stable angina pectoris (Primary Dx); [...] week 08/03/2023 How often do you attend up health system or orthodox services? 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 Gender Identity Not on file Sexual Orientation [...] history exists Medical Devices Implanted Type Area Chief Business Development Officer Device Identifier Shelf Expiration Date Model / Serial / Lot [facility] Center[facility]apo[facility] [id number] Device Closure Angio-Seal Vip Bondek-Plus Polyglyd L70 Cm Od6 Fr Odsec.035 In Vascular - [id number] Implanted:Qty: 1 on 07/19/2019 by Riccardo Chang MD at [facility] [employer] 01/22/2020 [id number] / / [employer] Inc Device Closure Vascade Od5 Fr Femoral Artery [id number] - [id number] Implanted:Qty: 1 on 11/04/2022 by Riccardo Chang MD at [facility] 700-500DX-0 5U / / Giron & Nephew/Richco/ Ortho R3 56mm 3 Hole Hip Standard Shell Acetabular [id number] - [id number] Implanted:Qty: 1 on 08/02/2023 by Galileo Klein MD at [facility] Left: Hip Giron [employer] Nephew/Richco/Or tho [id number] 09/16/2031 [id number] / / [id number] Giron & Nephew/Richco/ Ortho R3 56mm 40mm 20d Liner Acetabular Xlpe [id number] - [id number] Implanted:Qty: 1 on 08/02/2023 by Galileo Klein MD at [facility] Left: Hip G[employer] Nephew/Richco/Or tho [id number] 05/01/2033 [id number] / / [id number] Giron [employer] Nephew/Richco/ Ortho Polarstem Cementless Hip 6 Standard Stem Femoral Titanium Mcintosh [id number] - [id number] Implanted:Qty: 1 on 08/02/2023 by Galileo Klein MD at [facility] Left: Hip Giron [employer] Nephew/Richco/Or tho [id number] 04/15/2029 [id number] / / [id number] Giron & Nephew/Richco/ Ortho 40mm Modular Hip Head Femoral Oxinium [id number] - [id number] Implanted:Qty: 1 on 08/02/2023 by Galileo Klein MD at [facility] Left: Hip G[employer] Nephew/Richco/Or tho [id number] 04/29/2033 [id number] / / [id number] Giron & Nephew/Richco/ Ortho Modular Neck Hip +0mm 12/14 Taper Sleeve Femoral Titanium [id number] - [id number] Implanted:Qty: 1 on 08/02/2023 by Galileo Klein MD at [facility] Left: Hip G[employer] Nephew/Richco/Or tho [id number] 04/25/2033 [id number] / / [id number] Procedures Procedure Name Priority Date/Time Associated Diagnosis Comments POCT LIPID PANEL Routine 01/09/2025 1:48 PM CDT Coronary artery disease of [place] artery of [place] heart with stable angina pectoris EGFR Routine [...] [address] [place] [address] from Last 3 Months or Most Recently Relevant to Health Maintenance Insurance [place] [id number] Advance Directives For more information, please contact: [phone] * Full Code (Latest Code Status on File) Date Activated Date Inactivated Comments 08/02/2023 9:03 AM 08/03/2023 8:37 PM Care Teams Experimental Box Tester Relationship Specialty Start Date End Date Jay Jay Reynoso MD PCP - General Family Medicine 09/08/20 Jay Jay Reynoso MD Family Medicine 11/29/19
--- OUTSIDE RECORDS SUMMARY | 2025-03-25 16:25 | XMS_ITS | Encounter Summary ---
Author Organization [facility] Address [address] [place] [address] Phone Care Team Providers Care Photography Spotter Name Role Phone Diego Nunez MD Primary Care Provider Jay Jay Reynoso MD Unavailable [phone] Ravi Rosibelami Muniz DPT Unavailable [phone] Jay Jay Reynoso MD Primary Care Provider [phone] Encounter Details Date Type Department Care Team (Late st Contact Info) Description 07/16/2020 Telephone [facility] Physical Therapy [address] [facility] [address] [place] [id number] Fidelia Macias B.A. 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 CONSULTANT TECHNOLOGY Gender Identity Not on file Sexual Orientation Not on file documented as of this encounter Plan of Treatment Not on file documented as of this encounter Visit Diagnoses Not on filedocumented in this encounter Care Teams Photography Spotter Relationship Specialty Start Date End Date Diego Nunez MD [address] [address] PCP - General Internal Medicine 11/29/19 09/07/20 Jay Jay Reynoso MD [address] [facility] [address] [place] [address] PCP - General Family Medicine 09/08/20 Jay Jay Reynoso MD [address] [facility] [address] [place] [address] Family Medicine 11/29/19 Rosibel Rodrigues DPT [address] [facility] [address] [place] [address] Physical Therapist Physical Therapy 06/25/20 09/01/20 documented as of this encounter
--- OUTSIDE RECORDS SUMMARY | 2025-03-25 16:25 | XMS_ITS | Encounter Summary ---
Author Organization [employer] Address 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
--- OUTSIDE RECORDS SUMMARY | 2025-03-25 16:25 | XMS_ITS | Encounter Summary ---
Author Organization [facility] Address [address] [place] [address] Care Team Providers Care Tourist Cabin Keeper Name Role Phone Unavailable Primary Care Provider Unavailabl e Encounter Details Date Type Department Care Team (Late st Contact Info) Description 12/01/1999 Outpatient Historical [facility] MRI DEPT Jay Jay Reynoso MD [address] [place] [phone] Amyotrophic lateral sclerosis (CMS/HCC) (Primary Dx) Social History Tobacco Use Types Packs/Day Years Used Date Smoking Tobacco: Never Assessed Sex and Gender Information Value Date Recorded Sex Assigned at Not on file Legal Sex Male 4:08 AM SASH FINISHER Gender Identity Not on file Sexual Orientation Not on file documented as of this encounter Plan of Treatment Not on file documented as of this encounter Visit Diagnoses Diagnosis Amyotrophic lateral sclerosis (CMS/HCC)- Primary Amyotrophic lateral sclerosis documented in this encounter
--- OUTSIDE RECORDS SUMMARY | 2025-03-25 16:25 | XMS_ITS | Encounter Summary ---
Author Organization [employer] Address [address] [place] [address] Care Team Providers Care Video Rental Clerk Name Role Phone Unavailable Primary Care Provider Unavailabl e Encounter Details Date Type Department Care Team (Late st Contact Info) Description 01/26/2000 Outpatient Historical Division of Neurology [address] [facility] [address] [address] (Excluded Provider) [place] [address] [address] [facility] [address] [place] [address] Social History Tobacco Use Types Packs/Day Years Used Date Smoking Tobacco: Never Assessed Sex and Gender Information Value Date Recorded Sex Assigned at Not on file Legal Sex Male 4: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
--- OUTSIDE RECORDS SUMMARY | 2025-03-25 16:25 | XMS_ITS | Clinical Summary ---
Author Organization [facility] Address [address] [place] [address] [place] [address] Care Team Providers Care R Developer Name Role Phone Unavailable Primary Care Provider Unavailabl e Social History Tobacco Use Types Packs/Day Years Used Date Smoking Tobacco: Never Assessed Sex and Gender Information Value Date Recorded Sex Assigned at Not on file Legal Sex Male 4:08 AM DATABASE PROGRAMMER ANALYST Gender Identity Not on file Sexual Orientation [...] VACCINE (#1) [address] [place] [address] [place] [id number] [facility] [address] [place] [address] [facility] [place] [id number]
--- OUTSIDE RECORDS SUMMARY | 2025-03-25 16:25 | XMS_ITS | Referral Summary ---
Author Organization [facility] [address] [facility] Address [address] [place] [address] Care Team Providers Care Blue Line Operator Name Role Phone Jay Jay eRynoso MD Unavailable [phone] Jay Jay Reynoso MD Primary Care Provider [phone] Encounters Date Type Department Care Team Description 01/09/2025 2:00 PM CDT Office Visit [facility] Cardiology [address] [place] [address] Riccardo Chang MD Coronary artery disease of [place] artery of quina[place] heart with stable angina pectoris (Primary Dx); [...] (100 mg total) by mouth daily Active giohaznj96-cfl t-Qrnvuzzs-woh al 27 mg iron-1.13 mg-581.92 mg capsule [...] (06/22/2019): Added automatically from request for surgery [id number] Chest pain 06/22/2019 Overview (06/22/2019): Added automatically from request for surgery [id number] Social History Tobacco Use Types Packs/Day Years [...] often do you attend chur ch or restoration services? 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 INDUSTRY INTERN Gender Identity Not on file Sexual Orientation [...] on file Medical Devices Implanted Type Area Hatchery Employee Device Identifier Shelf Expiration Date Model / Serial / Lot [employer] [id number] Device Closure Angio-Seal Vip Bondek-Plus Polyglyd L70 Cm Od6 Fr Odsec.035 In Vascular - [id number] Implanted:Qty: 1 on 07/19/2019 by Riccardo Chang MD at [facility] [employer] 01/22/2020 [id number] / / Cardiva Medical Inc Device Closure Vascade Od5 Fr Femoral Artery [id number]-[id number] - [id number] Implanted:Qty: 1 on 11/04/2022 by Riccardo Chang MD at [facility] 700-500DX-0 5U / / Giron & Nephew/Richco/ Ortho R3 56mm 3 Hole Hip Standard Shell Acetabular [id number] - [id number] Implanted:Qty: 1 on 08/02/2023 by Galileo Klein MD at [facility] Left: Hip Giron [employer] Nephew/Richco/Or tho [id number] 09/16/2031 [id number] / / [id number] Giron [employer] Nephew/Richco/ Ortho R3 56mm 40mm 20d Liner Acetabular Xlpe [id number] - [id number] Implanted:Qty: 1 on 08/02/2023 by Galileo Klein MD at [facility] Left: Hip Giron [employer] Nephew/Richco/Or tho [id number] 05/01/2033 [id number] / / [id number] Giron [employer] Nephew/Richco/ Ortho Polarstem Cementless Hip 6 Standard Stem Femoral Titanium Mcintosh [id number] - [id number] Implanted:Qty: 1 on 08/02/2023 by Galileo Klein MD at [facility] Left: Hip Giron [employer] Nephew/Richco/Or tho [id number] 04/15/2029 [id number] / / [id number] Giron & Nephew/Richco/ Ortho 40mm Modular Hip Head Femoral Oxinium [id number] - [id number] Implanted:Qty: 1 on 08/02/2023 by Galileo Klein MD at [facility] Left: Hip Giron [employer] Nephew/Richco/Or tho [id number] 04/29/2033 [id number] / / [id number] Giron & Nephew/Richco/ Ortho Modular Neck Hip +0mm 12/14 Taper Sleeve Femoral Titanium [id number] - [id number] Implanted:Qty: 1 on 08/02/2023 by Galileo Klein MD at [facility] Left: Hip Giron [employer] Nephew/Richco/Or tho [id number] 04/25/2033 [id number] / / [id number] Procedures Procedure Name Priority Date/Time Associated Diagnosis Comments POCT LIPID PANEL Routine 01/09/2025 1:48 PM CDT Coronary artery disease of [place] artery of [place] heart with stable angina pectoris EGFR Routine [...] LAB BLOOD ORDERABLES Final Res ult [facility] [address] [facility] Department [place] [address] from Last 3 Months or Most Recently Relevant to Health Maintenance Insurance Member Subscriber Plan / Payer (Ef fective 2022-Present) Name:Darien Guzman Relation to Subscriber:Self Name:Darien Guzman Payer ID:[id number] (NAIC) Type:[facility] MEDICARE Address: [place] [id number] [facility] MEDICARE ADVANTAGE Advance Directives For more information, please contact: [phone] * Full Code (Latest Code Status on File) Date Activated Date Inactivated Comments 08/02/2023 9:03 AM 08/03/2023 8:37 PM Care Teams Blue Line Operator Relationship Specialty Start Date End Date Jay Jay Reynoso MD PCP - General Family Medicine 09/08/20 Jay Jay Reynoso MD Family Medicine 11/29/19
--- OUTSIDE RECORDS SUMMARY | 2025-03-25 16:25 | XMS_ITS | Encounter Summary ---
Author Organization [employer] Address [address] [place] [address] Care Team Providers Care Public Transit Specialist Name Role Phone Unavailable Primary Care Provider Unavailabl e Encounter Details Date Type Department Care Team (Late st Contact Info) Description 12/14/1999 Outpatient Historical Division of Neurology [address] [facility] [address] [address] (Excluded Provider) [place] [address] [facility] [address] [place] [address] Social History Tobacco Use Types Packs/Day Years Used Date Smoking Tobacco: Never Assessed Sex and Gender Information Value Date Recorded Sex Assigned at Not on file Legal Sex Male 4:08 AM INSIDE SALES ADVISOR Gender Identity Not on file Sexual Orientation Not on file documented as of this encounter Plan of Treatment Not on file documented as of this encounter Visit Diagnoses Not on filedocumented in this encounter
--- OUTSIDE RECORDS SUMMARY | 2025-03-25 16:25 | XMS_ITS | Encounter Summary ---
Author Organization [employer] Address 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
--- OUTSIDE RECORDS SUMMARY | 2025-03-25 16:25 | XMS_ITS | Encounter Summary ---
Author Organization [employer] Address [address] [place] [address] Care Team Providers Care Tunnel Heading Supervisor Name Role Phone Unavailable Primary Care Provider Unavailabl e Encounter Details Date Type Department Care Team (Late st Contact Info) Description 11/13/1999 Outpatient Historical Division of Neurology [address] 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
[2025-03-25 17:48] VITALS: BP 140/92; PULSE 76; RESP 16; O2SAT 98
[2025-03-25 17:51] LABS: Bacteria Urine None Seen /hpf; Budding Yeast Urine Present /hpf; Non Pathogenic Casts 0-2; RBC Urine >100 /hpf (0-2); Squamous Epithelial Cell Urine None Seen /hpf (Few); WBC Urine >100 /hpf (0-3)
[2025-03-25 18:13] LABS: Add Urine Microscopic? YES; Appearance Urine Turbid (Clear); Bilirubin Urine Negative (Negative); Blood Urine 3+ (Negative); Glucose Urine UA 3+ mg/dL (Negative); Ketones Urine Negative (Negative); Leukocyte Esterase Ur 3+ LEU/UL (Negative); Nitrate Urine Negative (Negative); Protein Urine 2+ mg/dL (Negative); Specific Grav Ur 1.024 (1.001-1.035); Urobilinogen Urine 0.2 mg/dL (<2.0)
[2025-03-25 18:14] LABS: Color Urine Light Amber (Yellow)
--- NOTE | 2025-03-25 18:43 | ED_ITS ---
HPI - Male Genitourinary General Chief complaint: Urogenital-Male Stated complaint: Unable to urinate since 0800 Time Seen by Provider: 03/25/25 16:13 Source: patient Mode of arrival: ambulatory Limitations: no limitations History of Present Illness HPI Narrative: 79-year-old with a history of hypertension, diabetes, BPH, chronic Webber catheter a here with a complains of unable to urinate through his Webber catheter since this afternoon. Patient complains of lower abdominal pain. He denies any fever or chills. Onset (ago): day(s) (1) Severity: moderate Exacerbating factors: none Related Data Home Medications ?Medication ?Instructions ?Recorded ?Confirmed ?Last Taken ?Type aspirin 81 mg tablet,delayed 81 mg PO HS 11/27/20 03/15/25 03/09/25 21:00 History release (Adult Low Dose Aspirin) ferrous sulfate 325 mg (65 mg 325 mg PO TID 11/27/20 03/15/25 03/10/25 09:00 History iron) tablet (Feosol) multivitamin (Daily Multi-Vitamin 1 tablet PO DAILY 11/27/20 03/15/25 03/10/25 09:00 History tablet) omega-3 fatty acids 1,000 mg 1,000 mg PO DAILY 11/27/20 03/15/25 03/10/25 09:00 History capsule (Super Gentry-3) ranolazine 500 mg tablet,extended 500 mg PO BID 10/13/22 03/15/25 03/10/25 09:00 History release,12 hr carvedilol 3.125 mg tablet (Coreg) 3.125 mg PO DAILY 03/17/23 03/15/25 03/10/25 09:00 History coenzyme Q10 100 mg capsule (Co 100 mg PO DAILY 01/01/25 03/15/25 03/10/25 09:00 History Q-10) insulin glargine 100 unit/mL (3 12 unit subcut QPM 03/10/25 03/15/25 03/09/25 17:00 History mL) subcutaneous pen (Lantus Solostar U-100 Insulin) Allergies Allergy/AdvReac Type Severity Reaction Status Date / Time Penicillins Allergy Unknown Hives Verified 03/15/25 12:49 Review of Systems Review of Systems: All systems reviewed & are unremarkable except as noted in HPI and below Constitutional: Constitutional: Reports no additional constitutional complaints Eyes: Eyes: Reports no additional eye complaints ENT: Reports system reviewed and no additional complaints, except as documented Cardiovascular: Cardiovascular: Reports no additional cardiovascular complaints Respiratory: Respiratory: Reports no additional respiratory complaints Gastrointestinal: Gastrointestinal: Reports as per HPI Genitourinary: Genitourinary: Reports as per HPI Musculoskeletal: Musculoskeletal: Reports no additional musculoskeletal complaints PMFSH Past Medical History Medical History Colon polyp Gastritis Gallbladder anomaly Nausea & vomiting Epigastric pain 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 Chronic kidney disease Diabetic peripheral neuropathy Iron deficiency anemia Osteoarthritis Hypothyroidism Gastroesophageal reflux disease Coronary artery disease 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 Code status: Full code. Smoking status: Never smoker Second hand tobacco smoke exposure: No Alcohol intake: never Drinks per week: 1 Substance use: never Substance use type: does not use Do You Feel Safe in your Home?: Yes Lack of Transportation: No Lack of Food: Never True Current Housing: I Have Housing Concerned About Future Housing: No Difficulty Paying Gas/Electric Bills: No Difficulty Paying for Meds: No Currently Unemployed: No Education: Decline to Answer Difficulty w/ Childcare or Family Care: No Living arrangements: with family Additional living arrangements comments: The patient lives in his own home in [place]. He and his are . 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: No Exam Narrative: GENERAL: Well-appearing, well-nourished, and in no acute distress. HEAD: Normocephalic, atraumatic. EYES: PERRLA and EOMI. ENT: Nares clear, no rhinorrhea or epistaxis. Mucous membranes moist. NECK: Supple. CHEST: Clear to auscultation. No respiratory distress. HEART: Regular rate and rhythm. No murmur heard. Normal peripheral pulses. ABDOMEN: Soft, mild supra pubic tenderness, nondistended, normal active bowel sounds. EXTREMITIES: Normal range of motion. No edema. SKIN: Warm, dry, no rash. NEURO: No focal deficits. Alert and oriented x3. PSYCH: Normal mood and affect. Course Course Emergency Course: Pt's Webber cath was not flushing ,after changing Webber cath , drained about 600ml of pinkish reddish urine , UA was sent which appears to be infected , upon chart review his UA grew Pseudomonas sensitive to Cipro , i advised him to take antibiotic as prescribed , follow with urology Vital Signs Vital signs: Vital Signs Temperature 36.9 C 03/25/25 15:46 Pulse Rate 86 03/25/25 15:46 Respiratory Rate 18 03/25/25 15:46 Blood Pressure 134/76 03/25/25 15:46 Pulse Oximetry 98 03/25/25 15:46 Temperature 36.9 C 03/25/25 15:46 Pulse Rate 76 03/25/25 17:48 Respiratory Rate 16 03/25/25 17:48 Blood Pressure 140/92 H 03/25/25 17:48 Pulse Oximetry 98 03/25/25 17:48 MDM - Male Genitourinary Lab Data Labs: Lab Results 03/25/25 Range/Units 17:03 Urine Color Light lionel (Yellow) Urine Appearance Turbid H (Clear) Urine pH 7.0 (5.0-9.0) Ur Specific [place] 1.024 (1.001-1.035) Urine Protein 2+ H (Negative) mg/dL Urine Glucose (UA) 3+ H (Negative) mg/dL Urine Ketones Negative (Negative) mg/dL Ur Blood (Man) 3+ H (Negative) Urine Nitrate Negative (Negative) Urine Bilirubin Negative (Negative) Urine Urobilinogen 0.2 (<2.0) mg/dL Leukocyte Esterase Rfl 3+ H (Negative) YARELIS/UL Urine RBC >100 H (0-2) /hpf Urine WBC >100 H (0-3) /hpf Ur Squamous Epith Cells None seen (Few) /hpf Urine Bacteria None seen /hpf Urine Casts 0-2 Urine Yeast (Budding) Present H (None) /hpf Discharge Plan Discharge Clinical Impression: Chronic indwelling Webber catheter, Acute UTI Patient Disposition: Home Condition: Stable Instructions: Antibiotic Form, Urinary Tract Infection in Men (ED), Webber Catheter Placement and Care (ED) Patient Language: Bulgarian Prescriptions: New ciprofloxacin HCl [Cipro] 500 mg tablet 500 mg PO Q12H Qty: 14 0RF No Action aspirin [Adult Low Dose Aspirin] 81 mg tablet,delayed release (DR/EC) 81 mg PO HS omega-3 fatty acids [Super Gentry-3] 1,000 mg capsule 1,000 mg PO DAILY multivitamin [Daily Multi-Vitamin] Tablet 1 tablet PO DAILY ferrous sulfate [Feosol] 325 mg (65 mg iron) tablet 325 mg PO TID Patient Comments: Supposed to be TID but takes 1 in AM and that 2 PM Entresto 24-26 mg tablet 1 tablet PO BID Qty: 30 0RF (DME) FreeStyle Drea 2 [place]ona Misc See Rx Instructions .Route Qty: 1 0RF Rx Instructions: As directed isosorbide mononitrate 60 mg tablet extended release 24 hr 60 mg PO BID Qty: 180 3RF pantoprazole 20 mg tablet,delayed release (DR/EC) 20 mg PO QAM 90 Days Qty: 90 3RF ranolazine 500 mg tablet extended release 12 hr 500 mg PO BID carvedilol [Coreg] 3.125 mg Tablet 3.125 mg PO DAILY Patient Comments: told to stop but reduced it to daily as felt it was too much to stop Rx Instructions: must administer with a meal/food insulin glargine [Lantus Solostar U-100 Insulin] 100 unit/mL (3 mL) insulin pen 12 unit subcut QPM coenzyme Q10 [Co Q-10] 100 mg capsule 100 mg PO DAILY (DME) OneTouch Verio test strips Strip See Rx Instructions .ROUTE .MEDSUPPLY Qty: 200 3RF Rx Instructions: Use to test blood sugar bid, daily and as directed Trijardy XR 5-2.5-1,000 mg tablet, IR - ER, biphasic 24hr 2 tablet PO QAM Qty: 180 4RF nitroglycerin 0.4 mg tablet, sublingual 0.4 mg SUBLINGUAL Q5M PRN (Reason: chest pain) Qty: 25 2RF (DME) FreeStyle Drea 2 Sensor Kit See Rx Instructions .Route Qty: 13 1RF Rx Instructions: As directed levothyroxine 100 mcg tablet 100 mcg PO DAILY Qty: 90 1RF Follow-up/Referrals: Matt Mills MD [Physician] - Jay Jay Reynoso MD [Primary Care Provider] - Time of Disposition: 18:45
[2025-03-25 18:55] VITALS: BP 128/60; PULSE 73; RESP 16; TEMP 36.3; O2SAT 97
== END 2025-03-25 19:01 | disposition home or self-care (01) ==
PROVIDERS: Emergency Provider Family Medicine; PCP Family Medicine
DX: N39.0 Urinary tract infection, site not specified (principal); E11.9 Type 2 diabetes mellitus without complications; Z79.4 Long term (current) use of insulin; E11.40 Type 2 diabetes mellitus with diabetic neuropathy, unspecified; E03.9 Hypothyroidism, unspecified; N18.9 Chronic kidney disease, unspecified; M19.90 Unspecified osteoarthritis, unspecified site; K21.9 Gastro-esophageal reflux disease without esophagitis
CPT/HCPCS: 81001; 87086; 99283

== ENCOUNTER 2025-03-27 23:58 | Inpatient (IN) | payer MEDICARE, SELFPAY ==
--- NOTE | ~2025-03-27 | XR_ITS ---
Right Knee Technique: AP and lateral views were obtained. Clinical History: Pain Findings: No fracture or dislocation is seen. There is advanced degenerative change of the patellofem oral compartment. There is moderate to advanced degenerative change of the medial lateral compartment s.. Moderate to large joint effusion present. Extensive vascular calcifications are present. Impression: Moderate to advanced tricompartmental degenerative change, as detailed above. Moderate joint effusion. Reviewed, dictated and finalized at [facility]. Impression: Moderate to advanced tricompartmental degenerative change, as detailed above. Moderate joint effusion.
--- NOTE | ~2025-03-27 | CT_ITS ---
CT of the Abdomen and Pelvis: Indication: Hematuria Technique: 2.5 mm axial scans were obtained through the abdomen and pelvis following intravenous adm inistration of 100 cc of Omnipaque 350. Dose reduction technique was used on this scan by utilizing a utomated exposure control and iterative reconstruction technique. The dose-length product (DLP) was 4 57.47 mGy-cm. Findings: Scans through the lung bases are unremarkable. The liver, spleen, pancreas, gallbladder, and adrenal glands are within normal limits. Bilateral nono bstructing renal stones are present, largest in the left kidney measuring 4 mm. There are atheroscler otic calcifications of the aorta. No lymphadenopathy. No bowel obstruction or bowel wall thickening. There is no evidence to suggest acute appendicitis. Images through the pelvis are mildly degraded by streak artifact from left hip arthroplasty. Prostate gland is probably markedly enlarged, indenting into the bladder base. Webber catheter in place. There is a large hyperdense masslike lesion in the bladder lumen, measuring approximately 10.6 x 7.9 cm, c ompatible with large hematoma. No ascites. Chronic T12 compression fracture present. There is advanced degenerative spondylosis of the lumbar sp ine. Impression: Very large hematoma/blood clot in the urinary bladder measuring 10.6 x 7.9 cm. Probable markedly enlarged prostate gland indenting into the bladder base. Small nonobstructing renal stones, as above. Reviewed, dictated and finalized at [facility]. Impression: Very large hematoma/blood clot in the urinary bladder measuring 10.6 x 7.9 cm. Probable markedly enlarged prostate gland indenting into the bladder base. Small nonobstructing renal stones, as above.
[2025-03-27 23:56] VITALS: BP 163/95; PULSE 81; RESP 16; TEMP 36.9; O2SAT 98
[2025-03-28] VITALS (40 sets, daily range): BP systolic 94–147; BP diastolic 46–90; PULSE 50–83; RESP 14–18; TEMP 36.2–37.1; O2SAT 94–100; BMI 23.7
--- NOTE | 2025-03-28 00:05 | PC.NURSE ---
attempted to flush catheter without success. Old catheter removed. EDP Torossian at bedside.
--- NOTE | 2025-03-28 00:17 | ED_ITS ---
HPI - Male Genitourinary General Chief complaint: Urogenital-Male Stated complaint: blockage in catheter Time Seen by Provider: 03/28/25 00:04 History of Present Illness HPI Narrative: 79-year-old male with a past medical history including neurogenic bladder with a chronic indwelling Webber, chronic kidney disease, iron deficiency anemia, diabetes, myelodysplastic syndrome. Patient presents to the emergency department with inability urinate through his Webber catheter. He states his Webber catheter seems to have clogged up at around 5:00 p.m. and he has tried irrigated. Unsuccessful and he has been having abdominal distension pain worsening. He states this happened similarly just several days ago and he came to the ER and had his catheter exchange prior to discharge home. Three weeks ago he was admitted for continuous bladder irrigation, cystoscopy with hematoma in the bladder requiring fulguration with Urology. Patient has not been able to follow-up with urologist yet. He is currently on antibiotics for urinary tract infection. Denies any fever, chest pain, shortness a breath, chills, back pain. States that he is having abdominal pain distension not able to urinate. Notices that he has had hematuria for several weeks. Related Data Home Medications ?Medication ?Instructions ?Recorded ?Confirmed ?Last Taken ?Type aspirin 81 mg tablet,delayed 81 mg PO HS 11/27/20 03/15/25 03/09/25 21:00 History release (Adult Low Dose Aspirin) ferrous sulfate 325 mg (65 mg 325 mg PO TID 11/27/20 03/15/25 03/10/25 09:00 History iron) tablet (Feosol) multivitamin (Daily Multi-Vitamin 1 tablet PO DAILY 11/27/20 03/15/25 03/10/25 09:00 History tablet) omega-3 fatty acids 1,000 mg 1,000 mg PO DAILY 11/27/20 03/15/25 03/10/25 09:00 History capsule (Super Muse-3) ranolazine 500 mg tablet,extended 500 mg PO BID 10/13/22 03/15/25 03/10/25 09:00 History release,12 hr carvedilol 3.125 mg tablet (Coreg) 3.125 mg PO DAILY 03/17/23 03/15/25 03/10/25 09:00 History coenzyme Q10 100 mg capsule (Co 100 mg PO DAILY 01/01/25 03/15/25 03/10/25 09:00 History Q-10) insulin glargine 100 unit/mL (3 12 unit subcut QPM 03/10/25 03/15/25 03/09/25 17:00 History mL) subcutaneous pen (Lantus Solostar U-100 Insulin) Allergies Allergy/AdvReac Type Severity Reaction Status Date / Time Penicillins Allergy Unknown Hives Verified 03/15/25 12:49 Review of Systems 2 Review of Systems: As reviewed above in [facility] Past Medical History Medical History Colon polyp Gastritis Gallbladder anomaly Nausea & vomiting Epigastric pain 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 Chronic kidney disease Diabetic peripheral neuropathy Iron deficiency anemia Osteoarthritis Hypothyroidism Gastroesophageal reflux disease Coronary artery disease 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 Code status: Full code. Smoking status: Never smoker Second hand tobacco smoke exposure: No Alcohol intake: never Drinks per week: 1 Substance use: never Substance use type: does not use Do You Feel Safe in your Home?: Yes Lack of Transportation: No Lack of Food: Never True Current Housing: I Have Housing Concerned About Future Housing: No Difficulty Paying Gas/Electric Bills: No Difficulty Paying for Meds: No Currently Unemployed: No Education: Decline to Answer Difficulty w/ Childcare or Family Care: No Living arrangements: with family Additional living arrangements comments: The patient lives in his own home in [place]. He and his are . 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: No Exam 2 Narrative: GENERAL: Uncomfortable appearing and in pain but not any acute distress, answering questions appropriately HEAD: [Normocephalic, atraumatic.] EYES: [PERRLA and EOMI.] ENT: Nares clear, no rhinorrhea or epistaxis. Mucous membranes moist. NECK: Supple. CHEST: [Clear to auscultation. No respiratory distress.] HEART: [Regular rate and rhythm]. No murmur heard. [Normal peripheral pulses.] ABDOMEN: Soft, suprapubic fullness, tender to palpation in the suprapubic region, no peritonitis, [No rigidity or guarding] EXTREMITIES: Normal range of motion. [No edema.] SKIN: Warm, dry, no rash. NEURO: [No focal deficits]. Alert and oriented [x3.] PSYCH: [Normal mood and affect.] Course Vital Signs Vital signs: Vital Signs Temperature 36.9 C 03/27/25 23:56 Pulse Rate 81 03/27/25 23:56 Respiratory Rate 16 03/27/25 23:56 Blood Pressure 163/95 H 03/27/25 23:56 Pulse Oximetry 98 03/27/25 23:56 Oxygen Delivery Room Air 03/27/25 23:56 Temperature 36.9 C 03/27/25 23:56 Pulse Rate 81 03/27/25 23:56 Respiratory Rate 16 03/27/25 23:56 Blood Pressure 163/95 H 03/27/25 23:56 Pulse Oximetry 98 03/27/25 23:56 Oxygen Delivery Room Air 03/27/25 23:56 MDM - Male Genitourinary MDM Narrative Medical decision making narrative: 79-year-old male with a history of neurogenic bladder with chronic indwelling Webber, CKD, type 2 diabetes, myelodysplastic syndrome, iron deficiency. Patient presents to the emergency department with painful hematuria and inability urinate for the last several hours. Patient appears acutely uncomfortable has distended suprapubic region with tenderness to palpation. He has normal vital signs but is uncomfortable in a bladder scan shows greater than 1000 cc in the bladder. His current Webber catheter was exchanged at bedside with blood clots at the urethral meatus upon withdrawal. A 3 way Webber catheter was inserted and continuous bladder irrigation was initiated. Patient had return of over a 1000 cc of blood. He remains hemodynamically stable at this time. CBC, CMP, PT, PTT, continuous bladder irrigation ordered. CT of the abdomen and pelvis was obtained. Patient given his recent hematoma in the bladder and cystoscopy with Urology might have a complication of the procedure verses bleeding hematoma versus hemorrhagic cystitis versus urinary obstruction from clot in the Webber system. Low suspicion other acute intra-abdominal process. Patient was given morphine and fluids and re-evaluated frequently. Patient CT scan shows significant blood products in the bladder consistent with his clinical picture. Nonobstructing renal calculi left and right, no hydronephrosis of either kidney. No other intra-abdominal process. Patient has a stable hemoglobin of 10.0 and remains without leukocytosis. He does have a mild KARYNA with potential process being postobstructive. Patient was given fluid bolus, CBI was initiated and had significant cleared up from initial bloody return to now mostly clear. Patient's pain is under control. Case patient's case was discussed with the on-call urologist Dr. Dooley and his clinical exam, history, CT scan imaging and plan of care was discussed. Recommendations to make the patient NPO for potential cystoscopy interventions given the blood products on CT. Discussed the case with the hospitalist Service who agreed to accept the patient to the [facility] floor at this time. Patient comfortable with the plan. Medical Records Attestation: I reviewed the patient's medical records. Lab Data Attestation: I reviewed the patient's lab results. 03/28/25 00:19 03/28/25 00:19 Labs: Lab Results 03/28/25 Range/Units 00:19 WBC 5.4 (4.5-10.0) K/mm3 RBC 2.64 L (4.6-6.20) M/mm3 Hgb 10.0 L (14.0-18.0) g/dL Hct 30.1 L (42.0-52.0) % MCV 114.0 H (80-100) fl MCH 37.9 H (26-34) pg MCHC 33.2 (32-36) g/dl RDW 14.2 (11.5-14.5) % Plt Count 240 D (150-375) k/mm3 MPV 9.9 (7.4-10.4) fl Immature Gran % (Auto) 1.1 H (0-0.5) % Neut % (Auto) 51.2 (45.5-73.1) % Lymph % (Auto) 34.6 (18.3-44.2) % [place] % (Auto) 10.0 H (2.6-8.5) % Eos % (Auto) 2.4 (0-4.4) % Baso % (Auto) 0.7 (0.2-1.2) % Lymph # (Auto) 1.87 (0.9-3.2) K/mm3 [place] # (Auto) 0.5 (0.1-0.6) K/mm3 Eos # (Auto) 0.1 (0-0.3) K/mm3 Baso # (Auto) 0.0 (0.0-0.1) K/mm3 Abs Immat Gran (auto) 0.06 H (0.00-0.031) K/mm3 Absolute Neuts (auto) 2.8 (1.3-6.7) K/mm3 Absolute Nucleated RBC 0.000 (0.0-0.012) K/mm3 Nucleated RBC % 0.0 (0.0-0.2) % PT 14.5 (11.1-14.7) Seconds INR 1.1 APTT 29.0 (22.3-36.8) Seconds Sodium 138 (137-145) mmol/L Potassium 4.2 (3.4-5.0) mmol/L Chloride 103 (98-107) mmol/L Carbon Dioxide 22 (22-30) mmol/L Anion Gap 13 H (4-12) mmol/L BUN 22 H (9-20) mg/dL Creatinine 1.54 H (0.7-1.3) mg/dL Estim Creat Clear Calc 30 ml/min Estimated GFR 44 L (59 - ) Glucose 262 H (65-110) mg/dL Calcium 9.4 (8.4-10.2) mg/dL Total Bilirubin 0.4 (0.2-1.3) mg/dL AST 31 (17-59) U/L ALT 21 (6-50) U/L Alkaline Phosphatase 70 (38-126) U/L Total Protein 7.4 (6.3-8.2) g/dL Albumin 4.4 (3.5-5.1) g/dL Imaging Data Attestation: I personally reviewed and interpreted this imaging study as follows: My impression: Retained blood products in the bladder, Discharge Plan Discharge Clinical Impression: Painful hematuria, Complication of Webber catheter, Acute kidney injury, Clot hematuria Patient Disposition: Still a Patient Condition: Stable Patient Language: Ukrainian Prescriptions: No Action aspirin [Adult Low Dose Aspirin] 81 mg tablet,delayed release (DR/EC) 81 mg PO HS omega-3 fatty acids [Super Muse-3] 1,000 mg capsule 1,000 mg PO DAILY multivitamin [Daily Multi-Vitamin] Tablet 1 tablet PO DAILY ferrous sulfate [Feosol] 325 mg (65 mg iron) tablet 325 mg PO TID Patient Comments: Supposed to be TID but takes 1 in AM and that 2 PM Entresto 24-26 mg tablet 1 tablet PO BID Qty: 30 0RF (DME) FreeStyle Drea 2 Ledger Misc See Rx Instructions .Route Qty: 1 0RF Rx Instructions: As directed isosorbide mononitrate 60 mg tablet extended release 24 hr 60 mg PO BID Qty: 180 3RF ranolazine 500 mg tablet extended release 12 hr 500 mg PO BID carvedilol [Coreg] 3.125 mg Tablet 3.125 mg PO DAILY Patient Comments: MD told to stop but reduced it to daily as felt it was too much to stop Rx Instructions: must administer with a meal/food insulin glargine [Lantus Solostar U-100 Insulin] 100 unit/mL (3 mL) insulin pen 12 unit subcut QPM ciprofloxacin HCl [Cipro] 500 mg tablet 500 mg PO Q12H Qty: 14 0RF ciprofloxacin HCl 500 mg tablet 500 mg PO Q12H Qty: 14 0RF coenzyme Q10 [Co Q-10] 100 mg capsule 100 mg PO DAILY (DME) OneTouch Verio test strips Strip See Rx Instructions .ROUTE .MEDSUPPLY Qty: 200 3RF Rx Instructions: Use to test blood sugar bid, daily and as directed Trijardy XR 5-2.5-1,000 mg tablet, IR - ER, biphasic 24hr 2 tablet PO QAM Qty: 180 4RF nitroglycerin 0.4 mg tablet, sublingual 0.4 mg SUBLINGUAL Q5M PRN (Reason: chest pain) Qty: 25 2RF (DME) FreeStyle Drea 2 Sensor Kit See Rx Instructions .Route Qty: 13 1RF Rx Instructions: As directed levothyroxine 100 mcg tablet 100 mcg PO DAILY Qty: 90 1RF pantoprazole 20 mg tablet,delayed release (DR/EC) 20 mg PO QAM 90 Days Qty: 90 3RF Follow-up/Referrals: Jay Jay Reynoso MD [Primary Care Provider] - Time of Disposition: 03:08
[2025-03-28] MEDS: WATER FOR IRRIGATION, STERILE 500 ML BOTTLE 1000 ML (00:20)
[2025-03-28] MEDS: MORPHINE SULFATE (*CRX) 4 MG/ML INJ IV PUSH (00:21)
[2025-03-28] MEDS: LACTATED RINGERS 500 ML 999 ML IV CONT (00:21)
[2025-03-28 00:34] LABS: Alanine Aminotransferase 21 U/L (6-50); Albumin Level 4.4 g/dL (3.5-5.1); Alkaline Phosphatase 70 U/L (38-126); Anion Gap 13 mmol/L (4-12); Aspartate Amino Transferase 31 U/L (17-59); Bilirubin,Total 0.4 mg/dL (0.2-1.3); Blood Urea Nitrogen 22 mg/dL (9-20); Calcium 9.4 mg/dL (8.4-10.2); Carbon Dioxide 22 mmol/L (22-30); Chloride 103 mmol/L (98-107); Estimated CRCL calculation 30 ml/min; Estimated Glomerular Filt Rate 44; Glucose 262 mg/dL (65-110); Potassium 4.2 mmol/L (3.4-5.0); Sodium 138 mmol/L (137-145); Total Protein 7.4 g/dL (6.3-8.2)
--- OUTSIDE RECORDS SUMMARY | 2025-03-28 00:36 | XMS_ITS | Clinical Summary ---
Author Organization [facility] [address] [facility] Address [address] [place] [address] Care Team Providers Care Focuser Name Role Phone Jay Jay Reynoso MD Unavailable [phone] Jay Jay Reynoso MD Primary Care Provider [phone] Allergies Active Allergy Reactions Criticality Noted Date [...] (100 mg total) by mouth daily Active zucmzqjj20-flr h-Hrgizlek-wfs al 27 mg iron-1.13 mg-581.92 mg capsule [...] (06/22/2019): Added automatically from request for surgery [id number] Chest pain 06/22/2019 Overview (06/22/2019): Added automatically from request for surgery [id number] Encounters Date Type Department Care Team Description 01/09/2025 2:00 PM CDT Office Visit [facility] Cardiology [address] [place] [address] Riccardo Chang MD Coronary artery disease of [place] artery of [place] heart with stable angina pectoris (Primary Dx); [...] 08/03/2023 How often do you attend [facility] or temple services? 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 Gender Identity Not on file Sexual [...] history exists Medical Devices Implanted Type Area Factory Lay Out Engineer Device Identifier Shelf Expiration Date Model / Serial / Lot [employer] [facility] [id number] Device Closure Angio-Seal Vip Bondek-Plus Polyglyd L70 Cm Od6 Fr Odsec.035 In Vascular - [id number] Implanted:Qty: 1 on 07/19/2019 by Riccardo Chang MD at [facility] [employer] 01/22/2020 [id number] / / Cardiva Medical Inc Device Closure Vascade Od5 Fr Femoral Artery [id number] - [id number] Implanted:Qty: 1 on 11/04/2022 by Riccardo Chang MD at [facility] Medical Inc 700-500DX-0 5U / / Giron & Nephew/Richco/ Ortho R3 56mm 3 Hole Hip Standard Shell Acetabular [id number] - [id number] Implanted:Qty: 1 on 08/02/2023 by Galileo Klein MD at [facility] Left: Hip Giron [employer] Nephew/Richco/Or tho [id number] 09/16/2031 [id number] / / [id number] Giron [employer] Nephew/Richco/ Ortho R3 56mm 40mm 20d Liner Acetabular Xlpe [id number] - [id number] Implanted:Qty: 1 on 08/02/2023 by Galileo Klein MD at [facility] Left: Hip G[employer] Nephew/Richco/Or tho [id number] 05/01/2033 [id number] / / [id number] G[employer]hew/Richco/ Ortho Polarstem Cementless Hip 6 Standard Stem Femoral Titanium Mcintosh [id number] - [id number] Implanted:Qty: 1 on 08/02/2023 by Galileo Klein MD at [facility] Left: Hip G[employer] Nephew/Richco/Or tho [id number] 04/15/2029 [id number] / / [id number] Giron [employer] Nephew/Richco/ Ortho 40mm Modular Hip Head Femoral Oxinium [id number] - [id number] Implanted:Qty: 1 on 08/02/2023 by Galileo Klein MD at [facility] Left: Hip G[employer] Nephew/Richco/Or tho [id number] 04/29/2033 [id number] / / [id number] Giron [employer] Nephew/Richco/ Ortho Modular Neck Hip +0mm 12/14 Taper Sleeve Femoral Titanium [id number] - [id number] Implanted:Qty: 1 on 08/02/2023 by Galileo Klein MD at [facility] Left: Hip G[employer] Nephew/Richco/Or tho [id number] 04/25/2033 [id number] / / [id number] Procedures Procedure Name Priority Date/Time Associated Diagnosis Comments POCT LIPID PANEL Routine 01/09/2025 1:48 PM CDT Coronary artery disease of [place] artery of [place] heart with stable angina pectoris EGFR Routine [...] [address] [place] [address] from Last 3 Months or Most Recently Relevant to Health Maintenance Insurance [place] [phone] Advance Directives For more information, please contact: [phone] * Full Code (Latest Code Status on File) Date Activated Date Inactivated Comments 08/02/2023 9:03 AM 08/03/2023 8:37 PM Care Teams Focuser Relationship Specialty Start Date End Date Jay Jay Reynoso MD PCP - General Family Medicine 09/08/20 Jay Jay Reynoso MD Family Medicine 11/29/19
--- OUTSIDE RECORDS SUMMARY | 2025-03-28 00:36 | XMS_ITS | Referral Summary ---
Author Organization [facility] [address] [facility] Address [address] [place] [address] Care Team Providers Care M48 M60 Armor Crewman Name Role Phone Jay Jay Reynoso MD Unavailable [phone] Jay Jay Reynoso MD Primary Care Provider [phone] Encounters Date Type Department Care Team Description 01/09/2025 2:00 PM CDT Office Visit [facility] Cardiology [address] [place] [address] Riccardo Chang MD Coronary artery disease of [place] artery of [place] heart with stable angina pectoris (Primary Dx); [...] (100 mg total) by mouth daily Active elcdsatg98-pvh y-Cfqdqjcv-arl al 27 mg iron-1.13 mg-581.92 mg capsule [...] (06/22/2019): Added automatically from request for surgery [id number] Chest pain 06/22/2019 Overview (06/22/2019): Added automatically from request for surgery [id number] Social History Tobacco Use Types Packs/Day Years [...] often do you attend chur ch or orthodox services? 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 Gender Identity Not on file Sexual [...] on file Medical Devices Implanted Type Area Rotary Shear Cutter Device Identifier Shelf Expiration Date Model / Serial / Lot Home Dialysis Plus [id number] Device Closure Angio-Seal Vip Bondek-Plus Polyglyd L70 Cm Od6 Fr Odsec.035 In Vascular - [id number] Implanted:Qty: 1 on 07/19/2019 by Riccardo Chang MD at [facility] Dialysis Plus/[employer] 01/22/2020 [id number] / / Cardiva Medical Inc Device Closure Vascade Od5 Fr Femoral Artery [id number] - [id number] Implanted:Qty: 1 on 11/04/2022 by Riccardo Chang MD at [facility] 700-500DX-0 5U / / Giron & Nephew/Richco/ Ortho R3 56mm 3 Hole Hip Standard Shell Acetabular [id number] - [id number] Implanted:Qty: 1 on 08/02/2023 by Galileo Klein MD at [facility] Left: Hip Giron [employer] Nephew/Richco/Or tho [id number] 09/16/2031 [id number] / / [id number] Giron & Nephew/Richco/ Ortho R3 56mm 40mm 20d Liner Acetabular Xlpe [id number] - [id number] Implanted:Qty: 1 on 08/02/2023 by Galileo Klein MD at [facility] Left: Hip Giron [employer] Nephew/Richco/Or tho [id number] 05/01/2033 [id number] / / [id number] Giron & Nephew/Richco/ Ortho Polarstem Cementless Hip 6 Standard Stem Femoral Titanium Mcintosh 20592262 - [id number] Implanted:Qty: 1 on 08/02/2023 by Galileo Klein MD at [facility] Left: Hip Giron [employer] Nephew/Richco/Or tho [id number] 04/15/2029 [id number] / / [id number] Giron & Nephew/Richco/ Ortho 40mm Modular Hip Head Femoral Oxinium [id number] - [id number] Implanted:Qty: 1 on 08/02/2023 by Galileo Klein MD at [facility] Left: Hip Giron [employer] Nephew/Richco/Or tho [id number] 04/29/2033 [id number] / / [id number] Giron & Nephew/Richco/ Ortho Modular Neck Hip +0mm 12/14 Taper Sleeve Femoral Titanium [id number] - [id number] Implanted:Qty: 1 on 08/02/2023 by Galileo Klein MD at [facility] Left: Hip Giron & Nephew/Richco/Or tho [id number] 04/25/2033 [id number] / / [id number] Procedures Procedure Name Priority Date/Time Associated Diagnosis Comments POCT LIPID PANEL Routine 01/09/2025 1:48 PM CDT Coronary artery disease of [place] artery of [place] tribe heart with stable angina pectoris EGFR Routine [...] LAB BLOOD ORDERABLES Final Res ult [facility] [address] [facility] Department [place] [address] from Last 3 Months or Most Recently Relevant to Health Maintenance Insurance [facility] Address: [place] [id number] [facility] Address: [address] [address] [facility] ADVANTAGE [facility] Address: [facility] [address] [place] [address] Advance Directives For more information, please contact: [phone] * Full Code (Latest Code Status on File) Date Activated Date Inactivated Comments 08/02/2023 9:03 AM 08/03/2023 8:37 PM Care Teams M48 M60 Armor Crewman Relationship Specialty Start Date End Date Jay Jay Reynoso MD PCP - General Family Medicine 09/08/20 Jay Jay Reynoso MD Family Medicine 11/29/19
--- OUTSIDE RECORDS SUMMARY | 2025-03-28 00:36 | XMS_ITS | Clinical Summary ---
Author Organization [facility] Address [address] [place] [address] Care Team Providers Care Senior Engineering Associate Name Role Phone Jay Jay Reynoso MD Primary Care Provider [phone] Source Comments [facility],non-[facility] Affiliates and Associated Physician Practices is amultiple site organization consisting of ambulatory clinics and hospital sitesin [place], [place], [place] and [place]. This disclosure is being madepursuant to the Care Everywhere program and may not contain all information available regarding this patient. 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 MANAGER Gender Identity Male 04/11/2021 8:06 AM CDT Sexual Orientation Not on file Last Filed Vital Signs Vital Sign Reading Time Taken Comments Blood Pressure 107/71 12/22/2022 2:45 PM OPTICAL ENGINEERING MANAGER Pulse 72 12/22/2022 2:45 PM OPTICAL ENGINEERING MANAGER Temperature 36.8 C (98.2 F) 12/22/2022 2:45 PM OPTICAL ENGINEERING MANAGER Respiratory Rate 16 12/22/2022 2:45 PM OPTICAL ENGINEERING MANAGER Oxygen Saturation 98% 12/22/2022 2:45 PM OPTICAL ENGINEERING MANAGER Inhaled Oxygen Concentration - - Weight 68 kg (150 lb) 12/22/2022 10:19 AM OPTICAL ENGINEERING MANAGER Height 165.1 cm (5' 5) 12/22/2022 9:57 AM OPTICAL ENGINEERING MANAGER Body Mass Index 24.96 12/22/2022 9:57 AM OPTICAL ENGINEERING MANAGER Plan of Treatment Health Maintenance Due Date [...] to complete this topic Insurance [address] [place], [place] [id number] [place] [address] MEDICARE ADV [facility] MANAGED MEDICARE ADV SELF PAY NO INSURANCE Member Subscriber Plan / Payer (Ef fective for All Dates) Name:AshleyDarien perez Member ID:Not on file Relation to Subscriber:Not on file Name:DARIEN RAMIREZ Subscriber ID:Not on file (Home) Address: [address] [place] [address] [place] [address] Payer ID:Not on file Group ID:Not on file Type:Self Pay Address: [place], [place] SELF PAY NO INSURANCE Member Subscriber Plan / Payer (Ef fective for All Dates) Name:AshleyDarien Member ID:Not on file Relation to Subscriber:Not on file Name:ASHLEYDARIEN Subscriber ID:Not on file Address: [address] [place] [address] Payer ID:Not on file Group ID:Not on file Type:Self Pay Address: [facility] MANAGED MEDICARE ADV SELF PAY NO INSURANCE Member Subscriber Plan / Payer (Ef fective for All Dates) Name:Darien Ramirez Member ID:Not on file Relation to Subscriber:Not on file Name:DARIEN RAMIREZ Subscriber ID:Not on file Address: [address] [place] [address] Payer ID:Not on file Group ID:Not on file Type:Self Pay Address: [facility] MANAGED MEDICARE ADV SELF PAY NO INSURANCE Member Subscriber Plan / Payer (Ef fective for All Dates) Name:Darien Ramirez Member ID:Not on file Relation to Subscriber:Not on file Name:DARIEN RAMIREZ Subscriber ID:Not on file Address: [address] [place] [address] Payer ID:Not on file Group ID:Not on file Type:Self Pay Address: [facility] MANAGED MEDICARE ADV Care Teams Senior Engineering Associate Relationship Specialty Start Date End Date Jay Jay Reynoso MD [facility] [place] [address] PCP - General 03/29/12
--- OUTSIDE RECORDS SUMMARY | 2025-03-28 00:36 | XMS_ITS | Encounter Summary ---
Author Organization [facility] Address [address] [place] [address] Phone Care Team Providers Care Home Paraprofessional Name Role Phone Diego Nunez MD Primary Care Provider Jay Jay Reynoso MD Unavailable [phone] Rosibel Rodrigues DPT Unavailable [phone] Jay Jay Reynoso MD Primary Care Provider [phone] Encounter Details Date Type Department Care Team (Late st Contact Info) Description 07/16/2020 Telephone [facility] Physical Therapy [address] [facility] [address] [place] [address] Fidelia Macias B.A. 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 Gender Identity Not on file Sexual Orientation Not on file documented as of this encounter Plan of Treatment Not on file documented as of this encounter Visit Diagnoses Not on filedocumented in this encounter Care Teams Home Paraprofessional Relationship Specialty Start Date End Date Diego Nunez MD [address] [address] PCP - General Internal Medicine 11/29/19 09/07/20 Jay Jay Reynoso MD [address] [facility] [address] [place] [address] PCP - General Family Medicine 09/08/20 Jay Jay Reynoso MD [address] [facility] [address] [place] [address] Family Medicine 11/29/19 Rosibel Rodrigues DPT [address] [facility] [address] [place] [address] Physical Therapist Physical Therapy 06/25/20 09/01/20 documented as of this encounter
--- OUTSIDE RECORDS SUMMARY | 2025-03-28 00:36 | XMS_ITS | Encounter Summary ---
Author Organization [employer] Address [address] [place] [address] Care Team Providers Care Wood Die Maker Name Role Phone Unavailable Primary Care Provider Unavailabl e Encounter Details Date Type Department Care Team (Late st Contact Info) Description 01/26/2000 Outpatient Historical Division of Neurology [address] [facility] [address] [address] (Excluded Provider) [place] [address] [address] [facility] [address] [place] [address] Social History Tobacco Use Types Packs/Day Years Used Date Smoking Tobacco: Never Assessed Sex and Gender Information Value Date Recorded Sex Assigned at Not on file Legal 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
--- OUTSIDE RECORDS SUMMARY | 2025-03-28 00:36 | XMS_ITS | Patient Health Record ---
Author Organization [facility] Address [address] [place] [address] Care Team Providers Care Head Rigger Name Role Phone Jay Jay Reynoso Primary Care Provider Jay Jay Beck Unavailable [phone] Alka Reynoso MD Unavailable Unavailabl e Allergies [...] Risk Notes Problem Fear of medical treatment (478901466) Fear of injections and transfusions (F40.231) Active confirmed Problem Localized, primary osteoarthritis of the pelvic region and thigh (936378318) Unilateral primary osteoarthritis, left hip (M16.12) Active confirmed Problem Cervical spondylosis without myelopathy (589465749) Spondylosis without myelopathy or radiculopathy, cervical region (M47.812) Active confirmed Plan Of Treatment Pending Test Test Name Order Date X ray : Hip, left 05/02/2023 Insurance Providers Payer Name Payer Address Payer Phone Subscriber Number Group Number Insured Name Patient Relationship to Insured Coverage Start Date Coverage End Date [employer] Medicare Advantage [address] [address] [place] [address] [id number] Kai Stewart Self - patient is the insured Medical (General) History Medical History History ICD Code Arthritis: Yes Congestive Heart Failure: Yes Diabetes, type I: Yes High blood pressure: Yes Surgical History Surgery Date(Month/Year)
--- OUTSIDE RECORDS SUMMARY | 2025-03-28 00:37 | XMS_ITS | Encounter Summary ---
Author Organization [employer] Address [address] [place] [address] Care Team Providers Care Employee Development Specialist Name Role Phone Unavailable Primary Care Provider Unavailabl e Encounter Details Date Type Department Care Team (Late st Contact Info) Description 01/06/2000 Outpatient Historical [facility] MRI DEPT (Excluded Provider) [place] [address] [facility] [address] [place] [address] Nerv/musculskel sym NEC (Primary Dx) Social History Tobacco Use Types Packs/Day Years Used Date Smoking Tobacco: Never Assessed Sex and Gender Information Value Date Recorded Sex Assigned at Not on file 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
--- OUTSIDE RECORDS SUMMARY | 2025-03-28 00:37 | XMS_ITS | Encounter Summary ---
Author Organization [employer] Address 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
--- OUTSIDE RECORDS SUMMARY | 2025-03-28 00:37 | XMS_ITS | Encounter Summary ---
Author Organization [employer] Address [address] [place] [address] Care Team Providers Care Senior Sales Director Name Role Phone Unavailable Primary Care Provider Unavailabl e Encounter Details Date Type Department Care Team (Late st Contact Info) Description 11/13/1999 Outpatient Historical Division of Neurology [address] [facility] [address] [address] (Excluded Provider) [place] [address] [facility] [address] [place] [address] Social History Tobacco Use Types Packs/Day Years Used Date Smoking Tobacco: Never Assessed Sex and Gender Information Value Date Recorded Sex Assigned at Not on file 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
--- OUTSIDE RECORDS SUMMARY | 2025-03-28 00:37 | XMS_ITS | Encounter Summary ---
Author Organization [employer] Address 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
--- OUTSIDE RECORDS SUMMARY | 2025-03-28 00:37 | XMS_ITS ---
Author Organization [facility] Address [address] [facility] [address] [place] [address] Care Team Providers Care Edge Molder Name Role Phone Jay Jay Reynoso Primary Care Provider Unavaila Jay Jay King Unavailable [phone] Alka Reynoso MD Unavailable Unavailabl e REASON [...] Provider Diagnosis -[address] [facility] [address] [facility] [address] [place] [address] 12/28/2023 Jay Jay Howard Plan Of Treatment No Information Progress Notes * Gaby RAMIREZOB:1944 (79 yo M)Acc No.[id number]:12/28/2023 Progress Note Patient: Mariel REYES Kai Provider: Mariel Howard MD :1945 A ge:78 Y S ex:Male Date:12/28/2023 Address:[address] [place] [address] [id number] Pcp:Jay Jay Reynoso Subjective: * Chief Complaints: [...] Electronic signature of Blue Howard MD on 03/28/2025 at 12:36 AM CDT Sign off status: Pending * Provider: Mariel Howard MD Date: 0 12/28/2023 Generated for Cody uriostegui/Ibrahima/Crystal on: 0 03/28/2025 12:36 AM CDT
--- OUTSIDE RECORDS SUMMARY | 2025-03-28 00:37 | XMS_ITS | Clinical Summary ---
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
--- OUTSIDE RECORDS SUMMARY | 2025-03-28 00:37 | XMS_ITS | Encounter Summary ---
Author Organization [employer] Address [address] [place] [address] Care Team Providers Care Transfer Knitter Name Role Phone Unavailable Primary Care Provider Unavailabl e Encounter Details Date Type Department Care Team (Late st Contact Info) Description 12/14/1999 Outpatient Historical Division of Neurology [address] [facility] [address] [address] (Excluded Provider) [place] [address] [facility] [address] [place] [address] Social History Tobacco Use Types Packs/Day Years Used Date Smoking Tobacco: Never Assessed Sex and Gender Information Value Date Recorded Sex Assigned at Not on file Legal Sex Male 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
[2025-03-28 00:39] LABS: INR 1.1; Prothrombin Time 14.5 Seconds (11.1-14.7)
[2025-03-28 00:43] LABS: Basophils Percent Auto 0.7 % (0.2-1.2); Eosinophils Absolute Auto 0.1 K/mm3 (0-0.3); Eosinophils Percent Auto 2.4 % (0-4.4); Hematocrit 30.1 % (42.0-52.0); Immature Granulocyte Absolute 0.06 K/mm3 (0.00-0.031); Immature Granulocyte Percent A 1.1 % (0-0.5); Lymphocytes Absolute Auto 1.87 K/mm3 (0.9-3.2); Lymphocytes Percent Auto 34.6 % (18.3-44.2); Mean Corpuscular HGB Conc 33.2 g/dl (32-36); Mean Corpuscular Hemoglobin 37.9 pg (26-34); Mean Platelet Volume 9.9 fl (7.4-10.4); Monocytes Absolute Auto 0.5 K/mm3 (0.1-0.6); Neutrophils Absolute Auto 2.8 K/mm3 (1.3-6.7); Neutrophils Percent Auto 51.2 % (45.5-73.1); Platelet Count Result 240 k/mm3 (150-375); Red Blood Count 2.64 M/mm3 (4.6-6.20); Red Cell Distribution Width 14.2 % (11.5-14.5); White Blood Count 5.4 K/mm3 (4.5-10.0)
[2025-03-28] MEDS: CIPROFLOXACIN 400 MG/D5W 200ML 200 ML 200 MG IVPB ×3 (03:10→21:06)
[2025-03-28] MEDS: LACTATED RINGERS 1,000 ML 100 ML IV CONT ×2 (03:11→19:45)
--- NOTE | 2025-03-28 03:13 | PC.NURSE ---
abx started after ua sent to lab.
--- NOTE | 2025-03-28 03:19 | P.HP_ITS ---
H&P: HPI History of Present Illness Date/Time: 03/28/25 05:19 Chief Complaint: Hematuria Narrative: This is an 79-year-old male patient with a history of Type 2 diabetes, CAD, myelodysplastic syndrome, CKD, peripheral neuropathy, and iron deficiency anemia who is admitted to the hospital for hematuria. 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 He presents with recurrent episodes of severe bladder pain and u rinary retention, associated with gross hematuria and clot formation. A few days ago, he presented to the emergency department with severe pain and inability to pass urine; a large hematoma (described as the size of a tangerine) was found in the bladder. Catheter change and bladder irrigation relieved the obstruction, and he was observed overnight. He was discharged home in stable condition with c lear urine, but subsequently developed recurrence of symptoms, with even larger clots and similar severe pain. He denies fever, chills, chest pain, shortness of breath, nausea, vomiting, or other systemic symptoms. He reports occasional blood in the urine with catheter changes, but this was previously minimal and not concerning. He remains physically active, able to play golf (recently played nine holes after discharge), and reports no wounds or open sores. Pain is severe when the bladder is not draining, but resolves promptly with catheter drainage. He also reports occasional hiatal spasms, which are well-controlled with medication. 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 His manages his medications and ensures adherence. In ER he had obstructed Webber catheter which was changed and subsequently had 1500 mL grossly bloody urine drainage promptly which relieved patient's pain. CT scan abdomen pelvis shows worsening bladder. Labs show stable hemoglobin of 10 and normal white blood cell count. He was continued on ciprofloxacin which he was taking as an outpatient. Patient admitted NPO status for urology to evaluate in the morning possible return for cystoscopy. CBI continues to infuse initially had cleared up some in ER but is now dark pink. Pertinent negatives: No fever, chills, chest pain, shortness of breath, nausea, vomiting, or other complaints. No wounds or open sores. No neurological or psychiatric complaints. 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 Code status: Full code. Smoking status: Never smoker Second hand tobacco smoke exposure: No Alcohol intake: current Drinks per week: 1 Substance use: never Substance use type: does not use Do You Feel Safe in your Home?: Yes Lack of Transportation: No Lack of Food: Never True Current Housing: I Have Housing Concerned About Future Housing: No Difficulty Paying Gas/Electric Bills: No Difficulty Paying for Meds: No Currently Unemployed: No Education: Bachelor's Degree Difficulty w/ Childcare or Family Care: No Living arrangements: with family Additional living arrangements comments: The patient lives in his own home in [place]. He and his are . 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: No Meds Home Medications and Allergies Home Medications ?Medication ?Instructions ?Recorded ?Confirmed ?Type aspirin 81 mg tablet,delayed 81 mg PO HS 11/27/20 03/15/25 History release (Adult Low Dose Aspirin) ferrous sulfate 325 mg (65 mg 325 mg PO TID 11/27/20 03/15/25 History iron) tablet (Feosol) multivitamin (Daily Multi-Vitamin 1 tablet PO DAILY 11/27/20 03/15/25 History tablet) omega-3 fatty acids 1,000 mg 1,000 mg PO DAILY 11/27/20 03/15/25 History capsule (Super [place]-3) ranolazine 500 mg tablet,extended 500 mg PO BID 10/13/22 03/15/25 History release,12 hr sacubitril 24 mg-valsartan 26 mg 1 tablet PO BID #30 tabs 11/15/22 03/15/25 Rx tablet (Entresto) blood sugar diagnostic (OneTouch #200 ea 01/05/23 03/15/25 Rx Verio test strips) carvedilol 3.125 mg tablet (Coreg) 3.125 mg PO DAILY 03/17/23 03/15/25 History flash glucose scanning reader #1 ea 08/31/23 03/15/25 Rx (FreeStyle Drea 2 [place]) isosorbide mononitrate 60 mg 60 mg PO BID #180 tabs 12/26/23 03/15/25 Rx tablet,extended release 24 hr empagliflozin 5 mg-linagliptin 2.5 2 tablet (2 x 5-2.5-1,000 mg) PO 06/18/24 03/15/25 Rx mg-metformn ER 1,000 mg QAM #180 ea tablet,24hr (Trijardy XR) nitroglycerin 0.4 mg sublingual 0.4 mg sublingual Q5M PRN chest 09/28/24 03/15/25 Rx tablet pain #25 tabs coenzyme Q10 100 mg capsule (Co 100 mg PO DAILY 01/01/25 03/15/25 History Q-10) flash glucose sensor (FreeStyle #13 ea 01/21/25 03/15/25 Rx Drea 2 Sensor kit) levothyroxine 100 mcg tablet 100 mcg PO DAILY #90 tabs 01/22/25 03/15/25 Rx insulin glargine 100 unit/mL (3 12 unit subcut QPM 03/10/25 03/15/25 History mL) subcutaneous pen (Lantus Solostar U-100 Insulin) ciprofloxacin HCl 500 mg tablet 500 mg PO Q12H #14 tabs 03/25/25 Rx ciprofloxacin HCl 500 mg tablet 500 mg PO Q12H #14 tabs 03/25/25 Rx (Cipro) pantoprazole 20 mg tablet,delayed 20 mg PO QAM 3 months #90 tabs 03/26/25 Rx release Allergies Allergy/AdvReac Type Severity Reaction Status Date / Time Penicillins Allergy Unknown Hives Verified 03/15/25 12:49 Vital Signs Vital Signs - 24 hr 03/27/25 23:56 Temperature 36.9 C Pulse Rate 81 Respiratory Rate 16 Blood Pressure 163/95 H Pulse Oximetry 98 Oxygen Delivery Room Air Exam Narrative: GENERAL: Well-appearing, well-nourished, and in no acute distress. HEAD: Normocephalic, atraumatic. ENT:? Mucous membranes moist. CHEST: Clear to auscultation.? No respiratory distress. HEART: Regular rate and rhythm. ? Normal peripheral pulses. ABDOMEN: Soft, nontender, nondistended. Webber catheter in place with CBI EXTREMITIES: Normal range of motion. No peripheral edema. SKIN: Warm dry normal color NEURO: Alert and oriented x3. PSYCH: Normal mood and affect H&P: Results Labs Labs: Short CBC 03/28/25 Range/Units 00:19 WBC 5.4 (4.5-10.0) K/mm3 Hgb 10.0 L (14.0-18.0) g/dL Hct 30.1 L (42.0-52.0) % Plt Count 240 D (150-375) k/mm3 BMP 03/28/25 00:19 Sodium 138 Potassium 4.2 Chloride 103 Carbon Dioxide 22 BUN 22 H Creatinine 1.54 H Glucose 262 H Calcium 9.4 Liver Function 03/28/25 Range/Units 00:19 Total Bilirubin 0.4 (0.2-1.3) mg/dL AST 31 (17-59) U/L ALT 21 (6-50) U/L Alkaline Phosphatase 70 (38-126) U/L Albumin 4.4 (3.5-5.1) g/dL Pulse Oximetry SpO2 results: 94-100% on room air Attestation: I personally reviewed and interpreted this pulse oximetry as follows: Interpretation: No need for supplemental oxygenation at this time Imaging CT scan - abdomen: My impression: Large clot noted in bladder with indwelling Webber catheter located within the clotted aspect of the bladder, distended bladder noted per my independent interpretation. Radiologist's impression: CT of the Abdomen and Pelvis: Indication: Hematuria Technique: 2.5 mm axial scans were obtained through the abdomen and pelvis following intravenous administration of 100 cc of Omnipaque 350. Dose reduction technique was used on this scan by utilizing automated exposure control and iterative reconstruction technique. The dose-length product (DLP) was 457.47 mGy-cm. Findings: Scans through the lung bases are unremarkable. The liver, spleen, pancreas, gallbladder, and adrenal glands are within normal limits. Bilateral nonobstructing renal stones are present, largest in the left kidney measuring 4 mm. There are atherosclerotic calcifications of the aorta. No lymphadenopathy. No bowel obstruction or bowel wall thickening. There is no evidence to suggest acute appendicitis. Images through the pelvis are mildly degraded by streak artifact from left hip arthroplasty. Prostate gland is probably markedly enlarged, indenting into the bladder base. Webber catheter in place. There is a large hyperdense masslike lesion in the bladder lumen, measuring approximately 10.6 x 7.9 cm, compatible with large hematoma. No ascites. Chronic T12 compression fracture present. There is advanced degenerative spondylosis of the lumbar spine. Impression: Very large hematoma/blood clot in the urinary bladder measuring 10.6 x 7.9 cm. Probable markedly enlarged prostate gland indenting into the bladder base. Small nonobstructing renal stones, as above. Reviewed, dictated and finalized at [facility]. Assessment and Plan Assessment and plan (1) Clot hematuria: Code(s): R31.0 - Gross hematuria Status: Acute Assessment and Plan: -Hx neurogenic bladder with chronic indwelling Webber catheter -Recent cystoscopy with hematoma requiring fulguration -Catheter stopped draining, exchanged in ER tonight and 1500 mL grossly bloody hematuria quickly drained -CBI started, now nearly clear -Mild KARYNA on CKD noted, redraw labs in the morning -Admit and keep NPO for Urology evaluation and possible repeat cystoscopy -Continue antibiotics (2) Acute on chronic kidney failure: Code(s): N17.9 - Acute kidney failure, unspecified; N18.9 - Chronic kidney disease, unspecified Status: Acute Assessment and Plan: -Likely post-obstructive and should improve with bladder evacuation -Cr 1.54, BUN 22, eGFR 44, eCrCl 30 upon ER arrival -Repeat labs in AM (3) Type 2 diabetes mellitus with hyperglycemia: Qualifiers: Diabetes mellitus manager long term care insulin use: without manager long term care use Qualified Code(s): E11.65 - Type 2 diabetes mellitus with hyperglycemia Code(s): E11.65 - Type 2 diabetes mellitus with hyperglycemia Status: Acute Assessment and Plan: -Elevated glucose on admit -Continue Lantus -ACHS fingerstick glucose with SSI -Recent A1c 7.2 a few months ago (4) Iron deficiency anemia: Code(s): D50.9 - Iron deficiency anemia, unspecified Status: Acute Assessment and Plan: -Stable hemoglobin at 10 upon ER evaluation (5) Hypothyroidism (acquired): Code(s): E03.9 - Hypothyroidism, unspecified Status: Acute Assessment and Plan: -Continue levothyroxine Quality VTE Prophylaxis VTE prophylaxis: mechanical ordered If No VTE Prophylaxis Answer both mechanical and pharmacologic: Reason no pharmacologic proph: medical contraindication active bleeding/bleeding risk Hospitalist MIPS Advance Care Plan I have confirmed that the patient's Advanced Care Plan is present, code status is documented, or surrogate decision maker is listed in patient medical record.: Yes Medication Reconciliation I have utilized all available resources to obtain, update and review the patients current medications (includes all prescriptions, OTC, herbals, canna bis, and nutritional supplements).: Yes
[2025-03-28 03:33] LABS: Add Urine Microscopic? YES; Bilirubin Urine Negative (Negative); Blood Urine 3+ (Negative); Glucose Urine UA 3+ mg/dL (Negative); Ketones Urine Negative (Negative); Leukocyte Esterase Ur 1+ LEU/UL (Negative); Need Manual Microscopic Reviewed; Nitrate Urine Negative (Negative); Non Pathogenic Casts 0-2; Protein Urine 3+ mg/dL (Negative); Specific Grav Ur 1.029 (1.001-1.035); Squamous Epithelial Cell Urine None Seen /hpf (Few); Urobilinogen Urine 0.2 mg/dL (<2.0); pH Urine 6.5 (5.0-9.0)
[2025-03-28 03:37] LABS: RBC Urine >100 /hpf (0-2); WBC Urine 51-100 /hpf (0-3)
[2025-03-28 03:38] LABS: Appearance Urine Turbid (Clear); Color Urine Red (Yellow)
[2025-03-28 03:39] LABS: Bacteria Urine Trace /hpf
--- NOTE | 2025-03-28 04:30 | ADMGEN ---
This patient, Darien Guzman, was admitted to Medical Room [facility] at 0420. Patient/family oriented to hospital policies and general routines including ID bracelet, bed and alarms, visiting hours, pain management, procedures, bathroom and other care routines, personal items, smoking policy, room service/diet, and visiting hours. Information on how to activate the Rapid Response Team has been discussed. Patient/Family are encouraged to report perceived risks to care and to ask questions if they do not understand what they are told or what they should do.
[2025-03-28 05:48] LABS: Basophils Percent Auto 0.6 % (0.2-1.2); Eosinophils Percent Auto 1.1 % (0-4.4); Hematocrit 26.3 % (42.0-52.0); Hemoglobin 8.3 g/dL (14.0-18.0); Immature Granulocyte Absolute 0.02 K/mm3 (0.00-0.031); Immature Granulocyte Percent A 0.6 % (0-0.5); Lymphocytes Absolute Auto 1.03 K/mm3 (0.9-3.2); Lymphocytes Percent Auto 28.9 % (18.3-44.2); Mean Corpuscular HGB Conc 31.6 g/dl (32-36); Mean Corpuscular Hemoglobin 36.9 pg (26-34); Mean Corpuscular Volume 116.9 fl (80-100); Mean Platelet Volume 9.7 fl (7.4-10.4); Monocytes Absolute Auto 0.5 K/mm3 (0.1-0.6); Monocytes Percent Auto 13.5 % (2.6-8.5); Neutrophils Percent Auto 55.3 % (45.5-73.1); Platelet Count Result 167 k/mm3 (150-375); Red Blood Count 2.25 M/mm3 (4.6-6.20); Red Cell Distribution Width 14.5 % (11.5-14.5); White Blood Count 3.6 K/mm3 (4.5-10.0)
[2025-03-28 06:15] LABS: Platelet Estimate Adequate (Adequate)
[2025-03-28 06:16] LABS: Alanine Aminotransferase 15 U/L (6-50); Albumin Level 3.5 g/dL (3.5-5.1); Alkaline Phosphatase 49 U/L (38-126); Anion Gap 5 mmol/L (4-12); Aspartate Amino Transferase 18 U/L (17-59); Bilirubin,Total 0.3 mg/dL (0.2-1.3); Blood Urea Nitrogen 21 mg/dL (9-20); Calcium 8.6 mg/dL (8.4-10.2); Carbon Dioxide 25 mmol/L (22-30); Chloride 106 mmol/L (98-107); Estimated CRCL calculation 39 ml/min; Estimated Glomerular Filt Rate 57; Glucose 200 mg/dL (65-110); Macrocytosis 1+ (NORMAL); Magnesium 1.7 mg/dL (1.6-2.3); Ovalocytes 1+; Potassium 4.3 mmol/L (3.4-5.0); Schistocytes None Seen; Sodium 136 mmol/L (137-145); Total Protein 6.1 g/dL (6.3-8.2)
--- NOTE | 2025-03-28 08:04 | WPDURCON ---
Assessment and Plan Assessment and plan (1) Clot hematuria: Code(s): R31.0 - Gross hematuria Status: Acute Assessment and Plan: Proceed to the operating room for cysto with clot evacuation this morning. Urology Consult Note HPI Date Seen: 03/28/25 Time Seen: 08:04 Requesting Physician: Jose Zapata MD Primary Care Provider: Jay Jay Reynoso MD Consult Narrative Reason for consult: Gross hematuria with clots Narrative: Darien Guzman is a 79 year old male presented with clot retention. He has had another visit to the ER with his catheter clogging. He was admitted now for further management. His hemoglobin is down in a 0.3 from a baseline of 10. Creatinine is normal 1.23. He had a similar episode 2-3 weeks ago requiring cysto with clot evacuation. 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 Code status: Full code. Smoking status: Never smoker Second hand tobacco smoke exposure: No Alcohol intake: current Drinks per week: 1 Substance use: never Substance use type: does not use Do You Feel Safe in your Home?: Yes Lack of Transportation: No Lack of Food: Never True Current Housing: I Have Housing Concerned About Future Housing: No Difficulty Paying Gas/Electric Bills: No Difficulty Paying for Meds: No Currently Unemployed: No Education: Bachelor's Degree Difficulty w/ Childcare or Family Care: No Living arrangements: with family Additional living arrangements comments: The patient lives in his own home in [place]. He and his are . 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: No Meds Home Medications and Allergies Home Medications ?Medication ?Instructions ?Recorded ?Confirmed ?Type aspirin 81 mg tablet,delayed 81 mg PO HS 11/27/20 03/28/25 History release (Adult Low Dose Aspirin) ferrous sulfate 325 mg (65 mg 325 mg PO TID 11/27/20 03/28/25 History iron) tablet (Feosol) multivitamin (Daily Multi-Vitamin 1 tablet PO DAILY 11/27/20 03/28/25 History tablet) omega-3 fatty acids 1,000 mg 1,000 mg PO DAILY 11/27/20 03/28/25 History capsule (Super [place]-3) ranolazine 500 mg tablet,extended 500 mg PO BID 10/13/22 03/28/25 History release,12 hr sacubitril 24 mg-valsartan 26 mg 1 tablet PO BID #30 tabs 11/15/22 03/28/25 Rx tablet (Entresto) blood sugar diagnostic (OneTouch #200 ea 01/05/23 03/28/25 Rx Verio test strips) carvedilol 3.125 mg tablet (Coreg) 3.125 mg PO DAILY 03/17/23 03/28/25 History flash glucose scanning reader #1 ea 08/31/23 03/28/25 Rx (FreeStyle Drea 2 [place]) isosorbide mononitrate 60 mg 60 mg PO BID #180 tabs 12/26/23 03/28/25 Rx tablet,extended release 24 hr empagliflozin 5 mg-linagliptin 2.5 2 tablet (2 x 5-2.5-1,000 mg) PO 06/18/24 03/28/25 Rx mg-metformn ER 1,000 mg QAM #180 ea tablet,24hr (Trijardy XR) nitroglycerin 0.4 mg sublingual 0.4 mg sublingual Q5M PRN chest 09/28/24 03/28/25 Rx tablet pain #25 tabs coenzyme Q10 100 mg capsule (Co 100 mg PO DAILY 01/01/25 03/28/25 History Q-10) flash glucose sensor (FreeStyle #13 ea 01/21/25 03/28/25 Rx Drea 2 Sensor kit) levothyroxine 100 mcg tablet 100 mcg PO DAILY #90 tabs 01/22/25 03/28/25 Rx insulin glargine 100 unit/mL (3 12 unit subcut QPM 03/10/25 03/28/25 History mL) subcutaneous pen (Lantus Solostar U-100 Insulin) ciprofloxacin HCl 500 mg tablet 500 mg PO Q12H #14 tabs 03/25/25 03/28/25 Rx ciprofloxacin HCl 500 mg tablet 500 mg PO Q12H #14 tabs 03/25/25 03/28/25 Rx (Cipro) pantoprazole 20 mg tablet,delayed 20 mg PO QAM 3 months #90 tabs 03/26/25 03/28/25 Rx release Allergies Allergy/AdvReac Type Severity Reaction Status Date / Time Penicillins Allergy Unknown Hives Verified 03/15/25 12:49 Vital Signs Vital Signs - 24 hr 03/27/25 23:56 03/28/25 00:16 03/28/25 00:19 Temperature 36.9 C Pulse Rate 81 Respiratory Rate 16 Blood Pressure 163/95 H 147/90 H Pulse Oximetry 98 100 Oxygen Delivery Room Air 03/28/25 00:30 03/28/25 00:31 03/28/25 00:45 Temperature Pulse Rate Respiratory Rate Blood Pressure 129/68 Pulse Oximetry 100 99 97 Oxygen Delivery 03/28/25 00:46 03/28/25 01:14 03/28/25 01:15 Temperature Pulse Rate Respiratory Rate Blood Pressure 143/76 H 111/53 L Pulse Oximetry 100 100 100 Oxygen Delivery 03/28/25 01:16 03/28/25 01:30 03/28/25 01:31 Temperature Pulse Rate Respiratory Rate Blood Pressure 112/52 L Pulse Oximetry 100 100 94 Oxygen Delivery 03/28/25 01:45 03/28/25 01:46 03/28/25 02:00 Temperature Pulse Rate Respiratory Rate Blood Pressure 109/61 Pulse Oximetry 99 97 98 Oxygen Delivery 03/28/25 02:01 03/28/25 02:15 03/28/25 02:16 Temperature Pulse Rate Respiratory Rate Blood Pressure 109/50 L 124/65 Pulse Oximetry 98 100 100 Oxygen Delivery 03/28/25 02:30 03/28/25 02:31 03/28/25 02:46 Temperature Pulse Rate Respiratory Rate Blood Pressure 109/54 L 130/64 Pulse Oximetry 98 100 100 Oxygen Delivery 03/28/25 02:47 03/28/25 03:00 03/28/25 03:01 Temperature Pulse Rate Respiratory Rate Blood Pressure 120/56 L Pulse Oximetry 100 99 100 Oxygen Delivery 03/28/25 03:15 03/28/25 03:16 03/28/25 03:31 Temperature Pulse Rate Respiratory Rate Blood Pressure 138/82 124/57 L Pulse Oximetry 100 100 100 Oxygen Delivery 03/28/25 03:45 03/28/25 04:01 03/28/25 05:12 Temperature 36.6 C 37.1 C Pulse Rate 64 60 Respiratory Rate 16 16 Blood Pressure 113/64 111/52 L Pulse Oximetry 100 94 100 Oxygen Delivery Exam Const: General: cooperative Resp: Effort & Inspection: normal respiratory effort Cardio: Rate: regular rate Rhythm: regular rhythm Results Labs 03/28/25 05:39 03/28/25 05:39 Labs: Short CBC 03/28/25 03/28/25 Range/Units 00:19 05:39 WBC 5.4 3.6 L (4.5-10.0) K/mm3 Hgb 10.0 L 8.3 L (14.0-18.0) g/dL Hct 30.1 L 26.3 L (42.0-52.0) % Plt Count 240 D 167 (150-375) k/mm3 BMP 03/28/25 03/28/25 00:19 05:39 Sodium 138 136 L Potassium 4.2 4.3 Chloride 103 106 Carbon Dioxide 22 25 BUN 22 H 21 H Creatinine 1.54 H 1.23 Glucose 262 H 200 H Calcium 9.4 8.6 Liver Function 03/28/25 03/28/25 Range/Units 00:19 05:39 Total Bilirubin 0.4 0.3 (0.2-1.3) mg/dL AST 31 18 (17-59) U/L ALT 21 15 (6-50) U/L Alkaline Phosphatase 70 49 (38-126) U/L Albumin 4.4 3.5 (3.5-5.1) g/dL Urine 03/28/25 Range/Units 03:09 Urine Color Red H (Yellow) Urine Appearance Turbid H (Clear) Urine pH 6.5 (5.0-9.0) Ur Specific [place] 1.029 (1.001-1.035) Urine Protein 3+ H (Negative) mg/dL Urine Glucose (UA) 3+ H (Negative) mg/dL
[2025-03-28 08:15] LABS: Glucose Point of Care 138 mg/dl (65-105)
--- NOTE | 2025-03-28 08:44 | ECG_ITS ---
Test Date: 2025-03-28 09:17:57 Measurements Intervals [place] Rate: 52 P: 84 VT: 207 QRS: -5 QRSD: 172 T: 85 QT: 503 QTc: 470 Interpretive Statements SINUS BRADYCARDIA WITH OCCASIONAL SUPRAVENTRICULAR PREMATURE COMPLEXES BORDERLINE AV CONDUCTION DELAY RIGHT BUNDLE BRANCH BLOCK ABNORMAL ECG No previous ECG available for comparison Electronically Signed On 03-28-2025 10:00:17 CDT by Samuel Ortega D.O.
--- NOTE | 2025-03-28 09:44 | PC.NURSE ---
Patient to OR per stretcher 03/28/25 0940. CBI infusing.
--- NOTE | 2025-03-28 10:02 | P.PNAN_ITS ---
Anes - Initial Pre Proc Eval Procedure: Operation Date: 03/28/25 10:30 Proposed Procedures p Cystoscopy, Evacuation Bladder Clots - Matt Mills MD Date/Time: 03/28/25 10:02 Surgeon: Jose Zapata MD Pre Op Diagnosis: Hematuria with clots, CBI Patient Data Age: 79 Gender: M Height: 1.68 m Weight: 66.7 kg Last Vital Signs Temp 37.1 C 03/28/25 05:12 Pulse 60 03/28/25 05:12 Resp 16 03/28/25 05:12 BP 111/52 L 03/28/25 05:12 Pulse Ox 100 03/28/25 05:12 O2 Del Method Room Air 03/27/25 23:56 Allergies Allergy/AdvReac Type Severity Reaction Status Date / Time Penicillins Allergy Unknown Hives Verified 03/15/25 12:49 Home Medications ?Medication ?Instructions ?Recorded ?Confirmed ?Type aspirin 81 mg tablet,delayed 81 mg PO HS 11/27/20 03/28/25 History release (Adult Low Dose Aspirin) ferrous sulfate 325 mg (65 mg 325 mg PO TID 11/27/20 03/28/25 History iron) tablet (Feosol) multivitamin (Daily Multi-Vitamin 1 tablet PO DAILY 11/27/20 03/28/25 History tablet) omega-3 fatty acids 1,000 mg 1,000 mg PO DAILY 11/27/20 03/28/25 History capsule (Super [place]-3) ranolazine 500 mg tablet,extended 500 mg PO BID 10/13/22 03/28/25 History release,12 hr sacubitril 24 mg-valsartan 26 mg 1 tablet PO BID #30 tabs 11/15/22 03/28/25 Rx tablet (Entresto) blood sugar diagnostic (OneTouch #200 ea 01/05/23 03/28/25 Rx Verio test strips) carvedilol 3.125 mg tablet (Coreg) 3.125 mg PO DAILY 03/17/23 03/28/25 History flash glucose scanning reader #1 ea 08/31/23 03/28/25 Rx (FreeStyle Drea 2 [place]) isosorbide mononitrate 60 mg 60 mg PO BID #180 tabs 12/26/23 03/28/25 Rx tablet,extended release 24 hr empagliflozin 5 mg-linagliptin 2.5 2 tablet (2 x 5-2.5-1,000 mg) PO 06/18/24 03/28/25 Rx mg-metformn ER 1,000 mg QAM #180 ea tablet,24hr (Trijardy XR) nitroglycerin 0.4 mg sublingual 0.4 mg sublingual Q5M PRN chest 09/28/24 03/28/25 Rx tablet pain #25 tabs coenzyme Q10 100 mg capsule (Co 100 mg PO DAILY 01/01/25 03/28/25 History Q-10) flash glucose sensor (FreeStyle #13 ea 01/21/25 03/28/25 Rx Drea 2 Sensor kit) levothyroxine 100 mcg tablet 100 mcg PO DAILY #90 tabs 01/22/25 03/28/25 Rx insulin glargine 100 unit/mL (3 12 unit subcut QPM 03/10/25 03/28/25 History mL) subcutaneous pen (Lantus Solostar U-100 Insulin) ciprofloxacin HCl 500 mg tablet 500 mg PO Q12H #14 tabs 03/25/25 03/28/25 Rx ciprofloxacin HCl 500 mg tablet 500 mg PO Q12H #14 tabs 03/25/25 03/28/25 Rx (Cipro) pantoprazole 20 mg tablet,delayed 20 mg PO QAM 3 months #90 tabs 03/26/25 03/28/25 Rx release Laboratory Tests 03/28/25 03/28/25 03/28/25 00:19 03:09 05:39 WBC 5.4 K/mm3 3.6 L K/mm3 (4.5-10.0) (4.5-10.0) RBC 2.64 L M/mm3 2.25 L M/mm3 (4.6-6.20) (4.6-6.20) Hgb 10.0 L g/dL 8.3 L g/dL (14.0-18.0) (14.0-18.0) Hct 30.1 L % 26.3 L % (42.0-52.0) (42.0-52.0) MCV 114.0 H fl 116.9 H fl (80-100) (80-100) MCH 37.9 H pg 36.9 H pg (26-34) (26-34) MCHC 33.2 g/dl 31.6 L g/dl (32-36) (32-36) RDW 14.2 % 14.5 % (11.5-14.5) (11.5-14.5) Plt Count 240 D k/mm3 167 k/mm3 (150-375) (150-375) MPV 9.9 fl 9.7 fl (7.4-10.4) (7.4-10.4) Immature Gran % (Auto) 1.1 H % 0.6 H % (0-0.5) (0-0.5) Neut % (Auto) 51.2 % 55.3 % (45.5-73.1) (45.5-73.1) Lymph % (Auto) 34.6 % 28.9 % (18.3-44.2) (18.3-44.2) [place] % (Auto) 10.0 H % 13.5 H % (2.6-8.5) (2.6-8.5) Eos % (Auto) 2.4 % 1.1 % (0-4.4) (0-4.4) Baso % (Auto) 0.7 % 0.6 % (0.2-1.2) (0.2-1.2) Lymph # (Auto) 1.87 K/mm3 1.03 K/mm3 (0.9-3.2) (0.9-3.2) [place] # (Auto) 0.5 K/mm3 0.5 K/mm3 (0.1-0.6) (0.1-0.6) Eos # (Auto) 0.1 K/mm3 0.0 K/mm3 (0-0.3) (0-0.3) Baso # (Auto) 0.0 K/mm3 0.0 K/mm3 (0.0-0.1) (0.0-0.1) Abs Immat Gran (auto) 0.06 H K/mm3 0.02 K/mm3 (0.00-0.031) (0.00-0.031) Absolute Neuts (auto) 2.8 K/mm3 2.0 K/mm3 (1.3-6.7) (1.3-6.7) Absolute Nucleated RBC 0.000 K/mm3 0.000 K/mm3 (0.0-0.012) (0.0-0.012) Band Neutrophils % Not Reportable Nucleated RBC % 0.0 % 0.0 % (0.0-0.2) (0.0-0.2) Platelet Estimate Adequate (Adequate) Macrocytosis 1+ (NORMAL) Ovalocytes 1+ Schistocytes None seen PT 14.5 Seconds (11.1-14.7) INR 1.1 APTT 29.0 Seconds (22.3-36.8) Sodium 138 mmol/L 136 L mmol/L (137-145) (137-145) Potassium 4.2 mmol/L 4.3 mmol/L (3.4-5.0) (3.4-5.0) Chloride 103 mmol/L 106 mmol/L (98-107) (98-107) Carbon Dioxide 22 mmol/L 25 mmol/L (22-30) (22-30) Anion Gap 13 H mmol/L 5 mmol/L (4-12) (4-12) BUN 22 H mg/dL 21 H mg/dL (9-20) (9-20) Creatinine 1.54 H mg/dL 1.23 mg/dL (0.7-1.3) (0.7-1.3) Estim Creat Clear Calc 30 ml/min 39 ml/min Estimated GFR 44 L 57 L (59 - ) (59 - ) Glucose 262 H mg/dL 200 H mg/dL (65-110) (65-110) POC Capillary Glucose Calcium 9.4 mg/dL 8.6 mg/dL (8.4-10.2) (8.4-10.2) Magnesium 1.7 mg/dL (1.6-2.3) Total Bilirubin 0.4 mg/dL 0.3 mg/dL (0.2-1.3) (0.2-1.3) AST 31 U/L 18 U/L (17-59) (17-59) ALT 21 U/L 15 U/L (6-50) (6-50) Alkaline Phosphatase 70 U/L 49 U/L (38-126) (38-126) Total Protein 7.4 g/dL 6.1 L g/dL (6.3-8.2) (6.3-8.2) Albumin 4.4 g/dL 3.5 g/dL (3.5-5.1) (3.5-5.1) Urine Color Red H (Yellow) Urine Appearance Turbid H (Clear) Urine pH 6.5 (5.0-9.0) Ur Specific [place] 1.029 (1.001-1.035) Urine Protein 3+ H mg/dL (Negative) Urine Glucose (UA) 3+ H mg/dL (Negative) Urine Ketones Negative mg/dL (Negative) Ur Blood (Man) 3+ H (Negative) Urine Nitrate Negative (Negative) Urine Bilirubin Negative (Negative) Urine Urobilinogen 0.2 mg/dL (<2.0) Add Ur Microanalysis Reviewed Leukocyte Esterase Rfl 1+ H YARELIS/UL (Negative) Urine RBC >100 H /hpf (0-2) Urine WBC 51-100 H /hpf (0-3) Ur Squamous Epith Cells None seen /hpf (Few) Urine Bacteria Trace /hpf Urine Casts 0-2 03/28/25 08:08 WBC RBC Hgb Hct MCV MCH MCHC RDW Plt Count MPV Immature Gran % (Auto) Neut % (Auto) Lymph % (Auto) [place] % (Auto) Eos % (Auto) Baso % (Auto) Lymph # (Auto) [place] # (Auto) Eos # (Auto) Baso # (Auto) Abs Immat Gran (auto) Absolute Neuts (auto) Absolute Nucleated RBC Band Neutrophils % Nucleated RBC % Platelet Estimate Macrocytosis Ovalocytes Schistocytes PT INR APTT Sodium Potassium Chloride Carbon Dioxide Anion Gap BUN Creatinine Estim Creat Clear Calc Estimated GFR Glucose POC Capillary Glucose 138 H mg/dl (65-105) Calcium Magnesium Total Bilirubin AST ALT Alkaline Phosphatase Total Protein Albumin Urine Color Urine Appearance Urine pH Ur Specific [place] Urine Protein Urine Glucose (UA) Urine Ketones Ur Blood (Man) Urine Nitrate Urine Bilirubin Urine Urobilinogen Add Ur Microanalysis Leukocyte Esterase Rfl Urine RBC Urine WBC Ur Squamous Epith Cells Urine Bacteria Urine Casts Patient hx anesthesia problems: none Family hx anesthesia problems: none Results Review: All pre-operative results and documents have been reviewed as part of the pre- operative evaluation. 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 Chronic kidney disease Diabetic peripheral neuropathy Iron deficiency anemia Osteoarthritis Hypothyroidism Gastroesophageal reflux disease Coronary artery disease 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 Code status: Full code. Smoking status: Never smoker Second hand tobacco smoke exposure: No Alcohol intake: current Drinks per week: 1 Substance use: never Substance use type: does not use Do You Feel Safe in your Home?: Yes Lack of Transportation: No Lack of Food: Never True Current Housing: I Have Housing Concerned About Future Housing: No Difficulty Paying Gas/Electric Bills: No Difficulty Paying for Meds: No Currently Unemployed: No Education: Bachelor's Degree Difficulty w/ Childcare or Family Care: No Living arrangements: with family Additional living arrangements comments: The patient lives in his own home in [place]. He and his are . 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 Informed Consent: The patient's anesthetic plan and its attendant risks and benefits were discussed with the patient/family/POA. Questions were solicited and answers provided to the satisfaction of the patient/family/POA.
--- NOTE | 2025-03-28 10:57 | WPDHPUPDATE1 ---
History and Physical Update Update Date/Time: 03/28/25 10:57 History and Physical has been reviewed, including an updated exam of the patient. There are NO changes in the patient's condition. Risks, benefits, and alternatives have been discussed and questions answered. Patient agrees to proceed with procedure. Proceed with cystoscopy with clot evacuation
[2025-03-28] MEDS: LIDOCAINE 2% GEL UROJET 10 ML PKG MUCOUS MEM (11:27)
--- NOTE | 2025-03-28 11:28 | P.OP_ITS ---
Procedure Note - Detailed Date of Procedure 03/28/25 Pre-op Diagnosis Hematuria with clots, CBI Post-op Diagnosis Same Procedure Performed Cystoscopy with clot evacuation and fulguration Surgeon Matt Mills MD Anesthesia General Findings 500 cc of clot in the bladder no discrete bleeding although has some mild oozing of the prostatic fossa Description of Procedure Prep was taken to the operative suite correctly identified. Once anesthesia was obtained was placed in dorsal lithotomy position and prepped draped usual sterile fashion. Twenty-two [place] scope was inserted the bladder direct vision. He does have lateral lobe hypertrophy as well as a large median lobe. Approximately 500 cc of clot was evacuated out. Inspection revealed no gross but just some minimal oozing at the bladder neck area which was again fulgurated. 2% viscous lidocaine was inserted urethra [address] [place] [address] was placed with 15 cc in the balloon. This connected to continuous bladder irrigation and patient is taken recovery stable condition. Patient will be set up for prostate artery embolization. If this continues prior to that he may need a resection of that median lobe area. This completes dictation. Please send a copy of op note to my office Estimated Blood Loss 0 Drains Yes Packing No Pathology None sent Complications No immediate complications Condition Stable Disposition PACU
[2025-03-28] MEDS: EMPAGLIFLOZIN 10 MG TABLET PO (12:51)
[2025-03-28 13:02] LABS: Glucose Point of Care 113 mg/dl (65-105)
--- NOTE | 2025-03-28 16:00 | P.PNIM_ITS ---
Progress Note: A&P Assessment and Plan (1) Clot hematuria: Code(s): R31.0 - Gross hematuria Status: Acute Assessment and Plan: -Hx neurogenic bladder with chronic indwelling Webber catheter -Recent cystoscopy with hematoma requiring fulguration -Catheter stopped draining, exchanged in ER tonight and 1500 mL grossly bloody hematuria quickly drained -CBI started, now nearly clear -Mild KARYNA on CKD noted Urology consulted underwent cystoscopy with clot evacuation and fulguration 03/28/2025 -Continue antibiotics ciprofloxacin. Recent urine culture with Enterococcus which was vancomycin intermediate ampicillin resistant and Pseudomonas. Follow urine culture (2) Acute on chronic kidney failure: Code(s): N17.9 - Acute kidney failure, unspecified; N18.9 - Chronic kidney disease, unspecified Status: Acute Assessment and Plan: -Likely post-obstructive and should improve with bladder evacuation -Cr 1.54, BUN 22, eGFR 44, eCrCl 30 upon ER arrival Creatinine improving (3) Type 2 diabetes mellitus with hyperglycemia: Qualifiers: Diabetes mellitus nursing home insulin use: without rat exterminator use Qualified Code(s): E11.65 - Type 2 diabetes mellitus with hyperglycemia Code(s): E11.65 - Type 2 diabetes mellitus with hyperglycemia Status: Acute Assessment and Plan: -Elevated glucose on admit -Continue Lantus -ACHS fingerstick glucose with SSI -Recent A1c 7.2 a few months ago (4) Iron deficiency anemia: Code(s): D50.9 - Iron deficiency anemia, unspecified Status: Acute Assessment and Plan: -Stable hemoglobin at 10 upon ER evaluation (5) Hypothyroidism (acquired): Code(s): E03.9 - Hypothyroidism, unspecified Status: Acute Assessment and Plan: -Continue levothyroxine Subjective Date/time seen: 03/28/25 16:00 Interval history: Chart reviewed. Feels okay. Denies any abdominal pain. Labs reviewed. Review of Systems Review of Systems: All systems reviewed & are unremarkable except as noted in HPI and below Exam Narrative: GENERAL: Well-appearing, well-nourished, and in no acute distress. HEAD: Normocephalic, atraumatic. ENT:? Mucous membranes moist. CHEST: Clear to auscultation.? No respiratory distress. HEART: Regular rate and rhythm. ? Normal peripheral pulses. ABDOMEN: Soft, nontender, nondistended. Webber catheter in place with CBI EXTREMITIES: Normal range of motion. No peripheral edema. SKIN: Warm dry normal color NEURO: Alert and oriented x3. PSYCH: Normal mood and affect Objective Data Vital Signs Vital Signs: Vital Signs - 24 hr 03/27/25 23:56 03/28/25 00:16 03/28/25 00:19 Temperature 98.4 F Pulse Rate 81 Respiratory Rate 16 Blood Pressure 163/95 H 147/90 H Pulse Oximetry 98 100 Oxygen Delivery Room Air Oxygen Flow Rate 03/28/25 00:30 03/28/25 00:31 03/28/25 00:45 Temperature Pulse Rate Respiratory Rate Blood Pressure 129/68 Pulse Oximetry 100 99 97 Oxygen Delivery Oxygen Flow Rate 03/28/25 00:46 03/28/25 01:14 03/28/25 01:15 Temperature Pulse Rate Respiratory Rate Blood Pressure 143/76 H 111/53 L Pulse Oximetry 100 100 100 Oxygen Delivery Oxygen Flow Rate 03/28/25 01:16 03/28/25 01:30 03/28/25 01:31 Temperature Pulse Rate Respiratory Rate Blood Pressure 112/52 L Pulse Oximetry 100 100 94 Oxygen Delivery Oxygen Flow Rate 03/28/25 01:45 03/28/25 01:46 03/28/25 02:00 Temperature Pulse Rate Respiratory Rate Blood Pressure 109/61 Pulse Oximetry 99 97 98 Oxygen Delivery Oxygen Flow Rate 03/28/25 02:01 03/28/25 02:15 03/28/25 02:16 Temperature Pulse Rate Respiratory Rate Blood Pressure 109/50 L 124/65 Pulse Oximetry 98 100 100 Oxygen Delivery Oxygen Flow Rate 03/28/25 02:30 03/28/25 02:31 03/28/25 02:46 Temperature Pulse Rate Respiratory Rate Blood Pressure 109/54 L 130/64 Pulse Oximetry 98 100 100 Oxygen Delivery Oxygen Flow Rate 03/28/25 02:47 03/28/25 03:00 03/28/25 03:01 Temperature Pulse Rate Respiratory Rate Blood Pressure 120/56 L Pulse Oximetry 100 99 100 Oxygen Delivery Oxygen Flow Rate 03/28/25 03:15 03/28/25 03:16 03/28/25 03:31 Temperature Pulse Rate Respiratory Rate Blood Pressure 138/82 124/57 L Pulse Oximetry 100 100 100 Oxygen Delivery Oxygen Flow Rate 03/28/25 03:45 03/28/25 04:01 03/28/25 05:12 Temperature 97.9 F 98.7 F Pulse Rate 64 60 Respiratory Rate 16 16 Blood Pressure 113/64 111/52 L Pulse Oximetry 100 94 100 Oxygen Delivery Oxygen Flow Rate 03/28/25 08:10 03/28/25 10:00 03/28/25 11:35 Temperature 97.7 F 97.7 F Pulse Rate 50 L 83 Respiratory Rate 16 14 Blood Pressure 115/52 L 94/53 L Pulse Oximetry 100 100 Oxygen Delivery Room Air Room Air Simple Face Mask Oxygen Flow Rate 8 03/28/25 11:45 03/28/25 12:00 03/28/25 12:15 Temperature Pulse Rate 55 L 53 L 62 Respiratory Rate 17 17 16 Blood Pressure 121/57 L 127/56 L 125/57 L Pulse Oximetry 100 100 100 Oxygen Delivery Simple Face Mask Simple Face Mask Simple Face Mask Oxygen Flow Rate 8 8 8 03/28/25 12:30 03/28/25 12:50 03/28/25 13:05 Temperature 97.4 F L 97.5 F L Pulse Rate 55 L 62 63 Respiratory Rate 15 18 18 Blood Pressure 116/62 114/54 L 118/64 Pulse Oximetry 99 98 99 Oxygen Delivery Room Air Oxygen Flow Rate 03/28/25 13:43 03/28/25 15:08 Temperature 97.5 F L 97.2 F L Pulse Rate 61 59 L Respiratory Rate 18 16 Blood Pressure 123/61 113/58 L Pulse Oximetry 98 100 Oxygen Delivery Oxygen Flow Rate Intake/Output Intake/Output: Intake & Output 03/25/25 03/26/25 03/27/25 03/28/25 23:59 23:59 23:59 23:59 Intake Total 740 Output Total 6280 Balance -5540 Meds/Results Medications: Active Medications Generic Name Dose Route Start Last Admin Trade Name Freq PRN Reason Stop Dose Admin Acetaminophen 650 mg 03/28/25 02:58 Acetaminophen 325 Mg Tablet PO Q4H PRN Mild Pain (1-3) or Fever Dextrose 12.5 gm 03/28/25 03:53 Dextrose 50% 25 Gm/50 Ml Syringe IV PUSH PRN PRN Hypoglycemia Protocol Empagliflozin 10 mg 03/28/25 09:00 03/28/25 12:51 Empagliflozin 10 Mg Tablet PO 10 mg DAILY TROY Administration Fentanyl Citrate 25 mcg 03/28/25 10:08 Fentanyl Citrate Inj (*Crx) 100 Mcg/2 Ml Vial IV PUSH Q2M PRN Pain Glucagon 1 mg 03/28/25 03:53 Glucagon For Inj 1 Mg Vial IM PRN PRN Hypoglycemia Protocol Glucose 15 gm 03/28/25 03:53 Glucose Oral Gel 15 Gm Of Glucse In 37.5 Gm Tube PO PRN PRN Hypoglycemia Protocol Lactated Ringer's 1,000 mls @ 100 mls/hr 03/28/25 03:00 03/28/25 03:11 Lr - Lactated Ringers Iv IV CONT 100 mls/hr .Q10H TROY Administration Ciprofloxacin/Dextrose 200 mls @ 200 mls/hr 03/28/25 15:00 03/28/25 14:37 Cipro 400 Mg/D5w 200 Ml IVPB 200 mls/hr Q12H TROY Administration Dextrose 1,000 mls @ 100 mls/hr 03/28/25 03:53 Dextrose 5% 1,000 Ml IVPB PRN PRN Hypoglycemia Protocol Insulin Aspart 2 - 5 units 03/28/25 08:00 03/28/25 13:41 Insulin Aspart (*Bkc) 100 Units/Ml SUB-Q Not Given [facility] Protocol Ondansetron HCl 4 mg 03/28/25 02:58 Ondansetron Inj 4 Mg/2 Ml Vial IV PUSH Q4H PRN Nausea Radiology Results: ITS Impressions Abdomen/Pelvis CT 03/28/25 04:49 Impression: Very large hematoma/blood clot in the urinary bladder measuring 10.6 x 7.9 cm. Probable markedly enlarged prostate gland indenting into the bladder base. Small nonobstructing renal stones, as above. Labs Labs: Laboratory Results - last 24 hr 03/28/25 03/28/25 03/28/25 00:19 03:09 05:39 WBC 5.4 3.6 L RBC 2.64 L 2.25 L Hgb 10.0 L 8.3 L Hct 30.1 L 26.3 L MCV 114.0 H 116.9 H MCH 37.9 H 36.9 H MCHC 33.2 31.6 L RDW 14.2 14.5 Plt Count 240 D 167 MPV 9.9 9.7 Immature Gran % (Auto) 1.1 H 0.6 H Neut % (Auto) 51.2 55.3 Lymph % (Auto) 34.6 28.9 [place] % (Auto) 10.0 H 13.5 H Eos % (Auto) 2.4 1.1 Baso % (Auto) 0.7 0.6 Lymph # (Auto) 1.87 1.03 [place] # (Auto) 0.5 0.5 Eos # (Auto) 0.1 0.0 Baso # (Auto) 0.0 0.0 Abs Immat Gran (auto) 0.06 H 0.02 Absolute Neuts (auto) 2.8 2.0 Absolute Nucleated RBC 0.000 0.000 Band Neutrophils % Not Reportable Nucleated RBC % 0.0 0.0 Platelet Estimate Adequate Macrocytosis 1+ Ovalocytes 1+ Schistocytes None seen PT 14.5 INR 1.1 APTT 29.0 Sodium 138 136 L Potassium 4.2 4.3 Chloride 103 106 Carbon Dioxide 22 25 Anion Gap 13 H 5 BUN 22 H 21 H Creatinine 1.54 H 1.23 Estim Creat Clear Calc 30 39 Estimated GFR 44 L 57 L Glucose 262 H 200 H POC Capillary Glucose Calcium 9.4 8.6 Magnesium 1.7 Total Bilirubin 0.4 0.3 AST 31 18 ALT 21 15 Alkaline Phosphatase 70 49 Total Protein 7.4 6.1 L Albumin 4.4 3.5 Urine Color Red H Urine Appearance Turbid H Urine pH 6.5 Ur Specific [place] 1.029 Urine Protein 3+ H Urine Glucose (UA) 3+ H Urine Ketones Negative Ur Blood (Man) 3+ H Urine Nitrate Negative Urine Bilirubin Negative Urine Urobilinogen 0.2 Add Ur Microanalysis Reviewed Leukocyte Esterase Rfl 1+ H Urine RBC >100 H Urine WBC 51-100 H Ur Squamous Epith Cells None seen Urine Bacteria Trace Urine Casts 0-2 03/28/25 03/28/25 08:08 13:00 WBC RBC Hgb Hct MCV MCH MCHC RDW Plt Count MPV Immature Gran % (Auto) Neut % (Auto) Lymph % (Auto) [place] % (Auto) Eos % (Auto) Baso % (Auto) Lymph # (Auto) [place] # (Auto) Eos # (Auto) Baso # (Auto) Abs Immat Gran (auto) Absolute Neuts (auto) Absolute Nucleated RBC Band Neutrophils % Nucleated RBC % Platelet Estimate Macrocytosis Ovalocytes Schistocytes PT INR APTT Sodium Potassium Chloride Carbon Dioxide Anion Gap BUN Creatinine Estim Creat Clear Calc Estimated GFR Glucose POC Capillary Glucose 138 H 113 H Calcium Magnesium Total Bilirubin AST ALT Alkaline Phosphatase Total Protein Albumin Urine Color Urine Appearance Urine pH Ur Specific [place] Urine Protein Urine Glucose (UA) Urine Ketones Ur Blood (Man) Urine Nitrate Urine Bilirubin Urine Urobilinogen Add Ur Microanalysis Leukocyte Esterase Rfl Urine RBC Urine WBC Ur Squamous Epith Cells Urine Bacteria Urine Casts
[2025-03-28 16:42] LABS: Glucose Point of Care 191 mg/dl (65-105)
[2025-03-28] MEDS: LINEZOLID 600 MG TABLET PO (17:41)
[2025-03-28] MEDS: FERROUS SULFATE 325 MG TABLET DR BY MOUTH (17:41)
[2025-03-28] MEDS: INSULIN GLARGINE (*BKC) 100 UNITS/ML 8 UNITS SUB-Q (17:41)
[2025-03-28 19:51] LABS: Glucose Point of Care 265 mg/dl (65-105)
[2025-03-28] MEDS: RANOLAZINE 500 MG TAB.ER.12H PO (21:05)
[2025-03-28] MEDS: SACUBITRIL/VALSARTAN 24-26 MG TABLET 1 TAB PO (21:06)
[2025-03-29 00:20] VITALS: BP 95/47; PULSE 69; RESP 14; TEMP 36.4; O2SAT 100
[2025-03-29 04:39] VITALS: BP 123/53; PULSE 62; RESP 14; TEMP 36.4; O2SAT 99
[2025-03-29] MEDS: LEVOTHYROXINE SODIUM 100 MCG TABLET PO (06:08)
[2025-03-29] MEDS: CIPROFLOXACIN 400 MG/D5W 200ML 200 ML 200 MG IVPB ×3 (06:08→22:33)
[2025-03-29 06:27] LABS: Basophils Percent Auto 0.3 % (0.2-1.2); Eosinophils Absolute Auto 0.1 K/mm3 (0-0.3); Eosinophils Percent Auto 3.3 % (0-4.4); Hematocrit 24.4 % (42.0-52.0); Hemoglobin 7.9 g/dL (14.0-18.0); Immature Granulocyte Absolute 0.01 K/mm3 (0.00-0.031); Immature Granulocyte Percent A 0.3 % (0-0.5); Lymphocytes Percent Auto 30.3 % (18.3-44.2); Mean Corpuscular HGB Conc 32.4 g/dl (32-36); Mean Corpuscular Hemoglobin 37.6 pg (26-34); Mean Corpuscular Volume 116.2 fl (80-100); Mean Platelet Volume 9.6 fl (7.4-10.4); Monocytes Absolute Auto 0.4 K/mm3 (0.1-0.6); Monocytes Percent Auto 12.1 % (2.6-8.5); Neutrophils Absolute Auto 1.8 K/mm3 (1.3-6.7); Neutrophils Percent Auto 53.7 % (45.5-73.1); Platelet Count Result 166 k/mm3 (150-375); Red Cell Distribution Width 14.3 % (11.5-14.5); White Blood Count 3.3 K/mm3 (4.5-10.0)
[2025-03-29 06:31] LABS: Alanine Aminotransferase 11 U/L (6-50); Albumin Level 3.1 g/dL (3.5-5.1); Alkaline Phosphatase 50 U/L (38-126); Anion Gap 6 mmol/L (4-12); Aspartate Amino Transferase 16 U/L (17-59); Bilirubin,Total 0.4 mg/dL (0.2-1.3); Blood Urea Nitrogen 18 mg/dL (9-20); Calcium 8.6 mg/dL (8.4-10.2); Carbon Dioxide 27 mmol/L (22-30); Chloride 105 mmol/L (98-107); Estimated CRCL calculation 39 ml/min; Estimated Glomerular Filt Rate 57; Glucose 127 mg/dL (65-110); Magnesium 1.6 mg/dL (1.6-2.3); Potassium 4.1 mmol/L (3.4-5.0); Sodium 138 mmol/L (137-145); Total Protein 5.7 g/dL (6.3-8.2)
[2025-03-29 07:07] LABS: Anisocytosis 1+; Hypochromasia 1+; Platelet Estimate Adequate (Adequate)
[2025-03-29 07:08] LABS: Ovalocytes 1+; Schistocytes None Seen
[2025-03-29 09:03] LABS: Glucose Point of Care 139 mg/dl (65-105)
[2025-03-29 09:53] VITALS: PULSE 64
[2025-03-29] MEDS: carvediloL 3.125 MG TABLET PO (09:53)
[2025-03-29 09:55] VITALS: O2SAT 100
[2025-03-29] MEDS: MULTIVITAMINS THERAPEUTIC TAB (*BKC) 1 TABLET PO (09:55)
[2025-03-29] MEDS: LINEZOLID 600 MG TABLET PO ×2 (09:55→20:45)
[2025-03-29] MEDS: OMEGA 3 POLYUNSAT FATTY ACIDS 1 GM CAP PO (09:55)
[2025-03-29] MEDS: RANOLAZINE 500 MG TAB.ER.12H PO ×2 (09:55→20:45)
[2025-03-29] MEDS: EMPAGLIFLOZIN 10 MG TABLET PO (09:56)
[2025-03-29] MEDS: SACUBITRIL/VALSARTAN 24-26 MG TABLET 1 TAB PO ×2 (09:56→20:45)
[2025-03-29] MEDS: PANTOPRAZOLE SOD SESQUIHYDRATE 20 MG TAB PO (09:56)
[2025-03-29] MEDS: FERROUS SULFATE 325 MG TABLET DR BY MOUTH ×3 (09:56→17:54)
--- NOTE | 2025-03-29 10:38 | P.PNIM_ITS ---
Progress Note: A&P Assessment and Plan (1) Clot hematuria: Code(s): R31.0 - Gross hematuria Status: Acute Assessment and Plan: -Hx neurogenic bladder with chronic indwelling Webber catheter -Recent cystoscopy with hematoma requiring fulguration -Catheter stopped draining, exchanged in ER tonight and 1500 mL grossly bloody hematuria quickly drained -CBI started, now nearly clear -Mild KARYNA on CKD noted Urology consulted underwent cystoscopy with clot evacuation and fulguration 03/28/2025 -Continue antibiotics ciprofloxacin. Recent urine culture with Enterococcus which was vancomycin intermediate ampicillin resistant and Pseudomonas. Follow urine culture cipro dose adjusted and on linezolid now (2) Acute on chronic kidney failure: Code(s): N17.9 - Acute kidney failure, unspecified; N18.9 - Chronic kidney disease, unspecified Status: Acute Assessment and Plan: -Likely post-obstructive and should improve with bladder evacuation -Cr 1.54, BUN 22, eGFR 44, eCrCl 30 upon ER arrival Creatinine improving (3) Type 2 diabetes mellitus with hyperglycemia: Qualifiers: Diabetes mellitus custodial insulin use: without custodial use Qualified Code(s): E11.65 - Type 2 diabetes mellitus with hyperglycemia Code(s): E11.65 - Type 2 diabetes mellitus with hyperglycemia Status: Acute Assessment and Plan: -Elevated glucose on admit -Continue Lantus -ACHS fingerstick glucose with SSI -Recent A1c 7.2 a few months ago (4) Iron deficiency anemia: Code(s): D50.9 - Iron deficiency anemia, unspecified Status: Acute Assessment and Plan: -Stable hemoglobin at 10 upon ER evaluation (5) Hypothyroidism (acquired): Code(s): E03.9 - Hypothyroidism, unspecified Status: Acute Assessment and Plan: -Continue levothyroxine (6) Acute UTI: Code(s): N39.0 - Urinary tract infection, site not specified Status: Acute Assessment and Plan: pseudomonasa, enterococcus in ua cipro 400 mg q8 IV, linezolid 600 mg q12 Time Spent With Patient Time with patient: 25 - 35 minutes Subjective Date/time seen: 03/29/25 10:38 Interval history: Cystoscopy with clot evacuation and fulguration 03/[address] Mills. Pt is up in the chair and doing well. CBI is still on, urine is getting med surg nurse pinkish color. Review of Systems Review of Systems: All systems reviewed & are unremarkable except as noted in HPI and below Exam Narrative: GENERAL: Well-appearing, well-nourished, and in no acute distress. HEAD: Normocephalic, atraumatic. ENT:? Mucous membranes moist. CHEST: Clear to auscultation.? No respiratory distress. HEART: Regular rate and rhythm. ? Normal peripheral pulses. ABDOMEN: Soft, nontender, nondistended. Webber catheter in place with CBI EXTREMITIES: Normal range of motion. No peripheral edema. SKIN: Warm dry normal color NEURO: Alert and oriented x3. PSYCH: Normal mood and affect Const: General: comfortable Objective Data Vital Signs Vital Signs: Vital Signs - 24 hr 03/28/25 11:35 03/28/25 11:45 03/28/25 12:00 Temperature 97.7 F Pulse Rate 83 55 L 53 L Respiratory Rate 14 17 17 Blood Pressure 94/53 L 121/57 L 127/56 L Pulse Oximetry 100 100 100 Oxygen Delivery Simple Face Mask Simple Face Mask Simple Face Mask Oxygen Flow Rate 8 8 8 03/28/25 12:15 03/28/25 12:30 03/28/25 12:50 Temperature 97.4 F L Pulse Rate 62 55 L 62 Respiratory Rate 16 15 18 Blood Pressure 125/57 L 116/62 114/54 L Pulse Oximetry 100 99 98 Oxygen Delivery Simple Face Mask Room Air Oxygen Flow Rate 8 03/28/25 13:05 03/28/25 13:43 03/28/25 15:08 Temperature 97.5 F L 97.5 F L 97.2 F L Pulse Rate 63 61 59 L Respiratory Rate 18 18 16 Blood Pressure 118/64 123/61 113/58 L Pulse Oximetry 99 98 100 Oxygen Delivery Oxygen Flow Rate 03/28/25 20:18 03/28/25 21:00 03/29/25 00:20 Temperature 98.1 F 97.5 F L Pulse Rate 69 69 Respiratory Rate 16 14 Blood Pressure 96/46 L 95/47 L Pulse Oximetry 100 100 Oxygen Delivery Room Air Oxygen Flow Rate 03/29/25 04:39 03/29/25 09:53 Temperature 97.6 F Pulse Rate 62 64 Respiratory Rate 14 Blood Pressure 123/53 L Pulse Oximetry 99 Oxygen Delivery Oxygen Flow Rate Intake/Output Intake/Output: Intake & Output 03/26/25 03/27/25 03/28/25 03/29/25 23:59 23:59 23:59 23:59 Intake Total 2540 480 Output Total 7880 350 Balance -5340 130 Meds/Results Medications: Active Medications Generic Name Dose Route Start Last Admin Trade Name Freq PRN Reason Stop Dose Admin Acetaminophen 650 mg 03/28/25 02:58 Acetaminophen 325 Mg Tablet PO Q4H PRN Mild Pain (1-3) or Fever Carvedilol 3.125 mg 03/29/25 09:00 03/29/25 09:53 Carvedilol 3.125 Mg Tablet PO 3.125 mg DAILY TROY Administration Dextrose 12.5 gm 03/28/25 03:53 Dextrose 50% 25 Gm/50 Ml Syringe IV PUSH PRN PRN Hypoglycemia Protocol Empagliflozin 10 mg 03/28/25 09:00 03/29/25 09:56 Empagliflozin 10 Mg Tablet PO 10 mg DAILY TROY Administration Fentanyl Citrate 25 mcg 03/28/25 10:08 Fentanyl Citrate Inj (*Crx) 100 Mcg/2 Ml Vial IV PUSH Q2M PRN Pain Ferrous Sulfate 325 mg 03/28/25 17:00 03/29/25 09:56 Ferrous Sulfate [address] BY MOUTH 325 mg TID TROY Administration Fish Oil 1 gm 03/29/25 09:00 03/29/25 09:55 [place] 3 Polyunsat Fatty Acids 1 Gm Cap PO 1 gm DAILY TROY Administration Glucagon 1 mg 03/28/25 03:53 Glucagon For Inj 1 Mg Vial IM PRN PRN Hypoglycemia Protocol Glucose 15 gm 03/28/25 03:53 Glucose Oral Gel 15 Gm Of Glucse In 37.5 Gm Tube PO PRN PRN Hypoglycemia Protocol Lactated Ringer's 1,000 mls @ 100 mls/hr 03/28/25 03:00 03/28/25 19:45 Lr - Lactated Ringers Iv IV CONT 100 mls/hr .Q10H TROY Administration Dextrose 1,000 mls @ 100 mls/hr 03/28/25 03:53 Dextrose 5% 1,000 Ml IVPB PRN PRN Hypoglycemia Protocol Ciprofloxacin/Dextrose 200 mls @ 200 mls/hr 03/28/25 22:00 03/29/25 06:08 Cipro 400 Mg/D5w 200 Ml IVPB 200 mls/hr Q8HR TROY Administration Insulin Aspart 2 - 5 units 03/28/25 08:00 03/29/25 09:51 Insulin Aspart (*Bkc) 100 Units/Ml SUB-Q Not Given [facility] Protocol Insulin Glargine 8 units 03/28/25 18:00 03/28/25 17:41 Insulin Glargine (*Bkc) 100 Units/Ml SUB-Q 8 units QPM TROY Administration Levothyroxine Sodium 100 mcg 03/29/25 06:30 03/29/25 06:08 Levothyroxine Sodium 100 Mcg Tablet PO 100 mcg DAILY@0630 [facility] Administration Linezolid 600 mg 03/28/25 17:00 03/29/25 09:55 Linezolid 600 Mg Tablet PO 04/04/25 09:01 600 mg Q12HR TROY Administration Multivitamins Therapeutic 1 tablet 03/29/25 09:00 03/29/25 09:55 Multivitamins Therapeutic Tab (*Bkc) PO 1 tablet DAILY TROY Administration Nitroglycerin 0.4 mg 03/28/25 16:08 Nitroglycerin Sl 0.4 Mg Tablet SUBLINGUAL Q5M PRN chest pain Non-Formulary Medication 1 each 03/28/25 16:30 Nonformulary Nutritional Supplement XX 03/29/25 16:29 PRN PRN PROTOCOL Ondansetron HCl 4 mg 03/28/25 02:58 Ondansetron Inj 4 Mg/2 Ml Vial IV PUSH Q4H PRN Nausea Pantoprazole Sodium 20 mg 03/29/25 09:00 03/29/25 09:56 Pantoprazole Sod Sesquihydrate 20 Mg Tab PO 20 mg QAM TROY Administration Ranolazine 500 mg 03/28/25 21:00 03/29/25 09:55 Ranolazine 500 Mg Tab.Er.12h PO 500 mg Q12HR TROY Administration Sacubitril/Valsartan 1 tab 03/28/25 21:00 03/29/25 09:56 Sacubitril/Valsartan 24-26 Mg Tablet PO 1 tab Q12HR TROY Administration Radiology Results: ITS Impressions Abdomen/Pelvis CT 03/28/25 04:49 Impression: Very large hematoma/blood clot in the urinary bladder measuring 10.6 x 7.9 cm. Probable markedly enlarged prostate gland indenting into the bladder base. Small nonobstructing renal stones, as above. Labs Labs: Laboratory Results - last 24 hr 03/28/25 03/28/25 03/28/25 13:00 16:39 19:41 WBC RBC Hgb Hct MCV MCH MCHC RDW Plt Count MPV Immature Gran % (Auto) Neut % (Auto) Lymph % (Auto) [place] % (Auto) Eos % (Auto) Baso % (Auto) Lymph # (Auto) [place] # (Auto) Eos # (Auto) Baso # (Auto) Abs Immat Gran (auto) Absolute Neuts (auto) Absolute Nucleated RBC Band Neutrophils % Nucleated RBC % Platelet Estimate Hypochromasia Anisocytosis Ovalocytes Schistocytes Sodium Potassium Chloride Carbon Dioxide Anion Gap BUN Creatinine Estim Creat Clear Calc Estimated GFR Glucose POC Capillary Glucose 113 H 191 H 265 H Calcium Magnesium Total Bilirubin AST ALT Alkaline Phosphatase Total Protein Albumin 03/29/25 03/29/25 05:34 08:58 WBC 3.3 L RBC 2.10 L Hgb 7.9 L Hct 24.4 L MCV 116.2 H MCH 37.6 H MCHC 32.4 RDW 14.3 Plt Count 166 MPV 9.6 Immature Gran % (Auto) 0.3 Neut % (Auto) 53.7 Lymph % (Auto) 30.3 [place] % (Auto) 12.1 H Eos % (Auto) 3.3 Baso % (Auto) 0.3 Lymph # (Auto) 1.00 [place] # (Auto) 0.4 Eos # (Auto) 0.1 Baso # (Auto) 0.0 Abs Immat Gran (auto) 0.01 Absolute Neuts (auto) 1.8 Absolute Nucleated RBC 0.000 Band Neutrophils % Not Reportable Nucleated RBC % 0.0 Platelet Estimate Adequate Hypochromasia 1+ Anisocytosis 1+ Ovalocytes 1+ Schistocytes None seen Sodium 138 Potassium 4.1 Chloride 105 Carbon Dioxide 27 Anion Gap 6 BUN 18 Creatinine 1.22 Estim Creat Clear Calc 39 Estimated GFR 57 L Glucose 127 H POC Capillary Glucose 139 H Calcium 8.6 Magnesium 1.6 Total Bilirubin 0.4 AST 16 L ALT 11 Alkaline Phosphatase 50 Total Protein 5.7 L Albumin 3.1 L Quality VTE Prophylaxis VTE prophylaxis: mechanical ordered
[2025-03-29 12:00] VITALS: BP 104/60; PULSE 66; RESP 16; TEMP 36.9; O2SAT 100
[2025-03-29 12:08] LABS: Glucose Point of Care 219 mg/dl (65-105)
[2025-03-29] MEDS: LACTATED RINGERS 1,000 ML 100 ML IV CONT (12:46)
[2025-03-29] MEDS: INSULIN ASPART (*BKC) 100 UNITS/ML SUB-Q ×2 (12:47→17:55)
--- NOTE | 2025-03-29 15:51 | WPDUROPN2 ---
Progress Note: A&P Assessment and Plan (1) Clot hematuria: Code(s): R31.0 - Gross hematuria Status: Acute Assessment and Plan: 79y old male s/p Cystoscopy with clot evacuation and fulguration on 03/28/2025. Findings: 500 cc of clot in the bladder no discrete bleeding although has some mild oozing of the prostatic fossa. -patient cbi running with red urine. keep cbi running through the night and wean in the morning. -patient will need to discharge with the catheter. -Will follow up as outpatient for PAE referral. Subjective Subjective Date/Time Seen: 03/29/25 15:51 Interval history: Cystoscopy with clot evacuation and fulguration 03/[address] Mills. Pt is up in the chair and doing well. CBI is still on, urine is red Review of Systems Review of Systems: All systems reviewed & are unremarkable except as noted in HPI and below Exam Const: General: cooperative Resp: Effort & Inspection: normal respiratory effort Cardio: Rate: regular rate Rhythm: regular rhythm Urinary Catheter: Urinary Catheter: patent and draining and urine red Objective Data Vital Signs Vital Signs: Vital Signs - 24 hr 03/28/25 20:18 03/28/25 21:00 03/29/25 00:20 Temperature 98.1 F 97.5 F L Pulse Rate 69 69 Respiratory Rate 16 14 Blood Pressure 96/46 L 95/47 L Pulse Oximetry 100 100 Oxygen Delivery Room Air 03/29/25 04:39 03/29/25 09:53 03/29/25 12:00 Temperature 97.6 F 98.5 F Pulse Rate 62 64 66 Respiratory Rate 14 16 Blood Pressure 123/53 L 104/60 Pulse Oximetry 99 100 Oxygen Delivery Intake/Output Intake/Output: Intake & Output 03/26/25 03/27/25 03/28/25 03/29/25 23:59 23:59 23:59 23:59 Intake Total 2540 2160 Output Total 7880 350 Balance -5340 1810 Meds/Results Medications: Active Medications Generic Name Dose Route Start Last Admin Trade Name Freq PRN Reason Stop Dose Admin Acetaminophen 650 mg 03/28/25 02:58 Acetaminophen 325 Mg Tablet PO Q4H PRN Mild Pain (1-3) or Fever Carvedilol 3.125 mg 03/29/25 09:00 03/29/25 09:53 Carvedilol 3.125 Mg Tablet PO 3.125 mg DAILY TROY Administration Dextrose 12.5 gm 03/28/25 03:53 Dextrose 50% 25 Gm/50 Ml Syringe IV PUSH PRN PRN Hypoglycemia Protocol Docusate Sodium 100 mg 03/29/25 21:00 Docusate Sodium 100 Mg Capsule PO Q12HR TROY Empagliflozin 10 mg 03/28/25 09:00 03/29/25 09:56 Empagliflozin 10 Mg Tablet PO 10 mg DAILY TROY Administration Fentanyl Citrate 25 mcg 03/28/25 10:08 Fentanyl Citrate Inj (*Crx) 100 Mcg/2 Ml Vial IV PUSH Q2M PRN Pain Ferrous Sulfate 325 mg 03/28/25 17:00 03/29/25 12:45 Ferrous Sulfate [address] BY MOUTH 325 mg TID TROY Administration Fish Oil 1 gm 03/29/25 09:00 03/29/25 09:55 [place] 3 Polyunsat Fatty Acids 1 Gm Cap PO 1 gm DAILY TROY Administration Glucagon 1 mg 03/28/25 03:53 Glucagon For Inj 1 Mg Vial IM PRN PRN Hypoglycemia Protocol Glucose 15 gm 03/28/25 03:53 Glucose Oral Gel 15 Gm Of Glucse In 37.5 Gm Tube PO PRN PRN Hypoglycemia Protocol Lactated Ringer's 1,000 mls @ 100 mls/hr 03/28/25 03:00 03/29/25 12:53 Lr - Lactated Ringers Iv IV CONT Not Given .Q10H TROY Dextrose 1,000 mls @ 100 mls/hr 03/28/25 03:53 Dextrose 5% 1,000 Ml IVPB PRN PRN Hypoglycemia Protocol Ciprofloxacin/Dextrose 200 mls @ 200 mls/hr 03/28/25 22:00 03/29/25 13:20 Cipro 400 Mg/D5w 200 Ml IVPB 200 mls/hr Q8HR TR[facility] Administration Insulin Aspart 2 - 5 units 03/28/25 08:00 03/29/25 12:47 Insulin Aspart (*Bkc) 100 Units/Ml SUB-Q 2 units TIDWM [facility]OY Administration Protocol Insulin Glargine 8 units 03/28/25 18:00 03/28/25 17:41 Insulin Glargine (*Bkc) 100 Units/Ml SUB-Q 8 units QPM TROY Administration Levothyroxine Sodium 100 mcg 03/29/25 06:30 03/29/25 06:08 Levothyroxine Sodium 100 Mcg Tablet PO 100 mcg DAILY@0630 [facility] Administration Linezolid 600 mg 03/28/25 17:00 03/29/25 09:55 Linezolid 600 Mg Tablet PO 04/04/25 09:01 600 mg Q12HR [facility] Administration Multivitamins Therapeutic 1 tablet 03/29/25 09:00 03/29/25 09:55 Multivitamins Therapeutic Tab (*Bkc) PO 1 tablet DAILY TROY Administration Nitroglycerin 0.4 mg 03/28/25 16:08 Nitroglycerin Sl 0.4 Mg Tablet SUBLINGUAL Q5M PRN chest pain Non-Formulary Medication 1 each 03/28/25 16:30 Nonformulary Nutritional Supplement XX 03/29/25 16:29 PRN PRN PROTOCOL Ondansetron HCl 4 mg 03/28/25 02:58 Ondansetron Inj 4 Mg/2 Ml Vial IV PUSH Q4H PRN Nausea Pantoprazole Sodium 20 mg 03/29/25 09:00 03/29/25 09:56 Pantoprazole Sod Sesquihydrate 20 Mg Tab PO 20 mg QAM [facility] Administration Polyethylene Glycol 17 gm 03/29/25 15:15 Polyethylene Glycol 3350 17 Gm Powd.Pack PO QAM PRN Constipation Ranolazine 500 mg 03/28/25 21:00 03/29/25 09:55 Ranolazine 500 Mg Tab.Er.12h PO 500 mg Q12HR [facility] Administration Sacubitril/Valsartan 1 tab 03/28/25 21:00 03/29/25 09:56 Sacubitril/Valsartan 24-26 Mg Tablet PO 1 tab Q12HR [facility] Administration Radiology Results: ITS Impressions Abdomen/Pelvis CT 03/28/25 04:49 Impression: Very large hematoma/blood clot in the urinary bladder measuring 10.6 x 7.9 cm. Probable markedly enlarged prostate gland indenting into the bladder base. Small nonobstructing renal stones, as above. Labs Labs: Laboratory Results - last 24 hr 03/28/25 03/28/25 03/29/25 16:39 19:41 05:34 WBC 3.3 L RBC 2.10 L Hgb 7.9 L Hct 24.4 L MCV 116.2 H MCH 37.6 H MCHC 32.4 RDW 14.3 Plt Count 166 MPV 9.6 Immature Gran % (Auto) 0.3 Neut % (Auto) 53.7 Lymph % (Auto) 30.3 [place] % (Auto) 12.1 H Eos % (Auto) 3.3 Baso % (Auto) 0.3 Lymph # (Auto) 1.00 [place] # (Auto) 0.4 Eos # (Auto) 0.1 Baso # (Auto) 0.0 Abs Immat Gran (auto) 0.01 Absolute Neuts (auto) 1.8 Absolute Nucleated RBC 0.000 Band Neutrophils % Not Reportable Nucleated RBC % 0.0 Platelet Estimate Adequate Hypochromasia 1+ Anisocytosis 1+ Ovalocytes 1+ Schistocytes None seen Sodium 138 Potassium 4.1 Chloride 105 Carbon Dioxide 27 Anion Gap 6 BUN 18 Creatinine 1.22 Estim Creat Clear Calc 39 Estimated GFR 57 L Glucose 127 H POC Capillary Glucose 191 H 265 H Calcium 8.6 Magnesium 1.6 Total Bilirubin 0.4 AST 16 L ALT 11 Alkaline Phosphatase 50 Total Protein 5.7 L Albumin 3.1 L 03/29/25 03/29/25 08:58 11:51 WBC RBC Hgb Hct MCV MCH MCHC RDW Plt Count MPV Immature Gran % (Auto) Neut % (Auto) Lymph % (Auto) [place] % (Auto) Eos % (Auto) Baso % (Auto) Lymph # (Auto) [place] # (Auto) Eos # (Auto) Baso # (Auto) Abs Immat Gran (auto) Absolute Neuts (auto) Absolute Nucleated RBC Band Neutrophils % Nucleated RBC % Platelet Estimate Hypochromasia Anisocytosis Ovalocytes Schistocytes Sodium Potassium Chloride Carbon Dioxide Anion Gap BUN Creatinine Estim Creat Clear Calc Estimated GFR Glucose POC Capillary Glucose 139 H 219 H Calcium Magnesium Total Bilirubin AST ALT Alkaline Phosphatase Total Protein Albumin
[2025-03-29 17:41] LABS: Glucose Point of Care 201 mg/dl (65-105)
[2025-03-29] MEDS: polyethylene glycoL 3350 17 GM POWD.PACK PO (17:54)
[2025-03-29] MEDS: INSULIN GLARGINE (*BKC) 100 UNITS/ML 8 UNITS SUB-Q (17:56)
[2025-03-29] MEDS: DOCUSATE SODIUM 100 MG CAPSULE PO (20:45)
[2025-03-30] MEDS: LACTATED RINGERS 1,000 ML 100 ML IV CONT ×2 (02:55→15:33)
--- NOTE | 2025-03-30 05:06 | PC.NURSE ---
Patient pulled IV and will not keep telemetry in place. New IV access gained.
[2025-03-30 05:22] LABS: Basophils Percent Auto 0.4 % (0.2-1.2); Eosinophils Absolute Auto 0.1 K/mm3 (0-0.3); Eosinophils Percent Auto 2.2 % (0-4.4); Hematocrit 22.6 % (42.0-52.0); Hemoglobin 7.3 g/dL (14.0-18.0); Immature Granulocyte Absolute 0.02 K/mm3 (0.00-0.031); Immature Granulocyte Percent A 0.7 % (0-0.5); Lymphocytes Absolute Auto 0.97 K/mm3 (0.9-3.2); Lymphocytes Percent Auto 36.2 % (18.3-44.2); Mean Corpuscular HGB Conc 32.3 g/dl (32-36); Mean Corpuscular Hemoglobin 36.9 pg (26-34); Mean Corpuscular Volume 114.1 fl (80-100); Mean Platelet Volume 9.5 fl (7.4-10.4); Monocytes Absolute Auto 0.3 K/mm3 (0.1-0.6); Monocytes Percent Auto 12.7 % (2.6-8.5); Neutrophils Absolute Auto 1.3 K/mm3 (1.3-6.7); Neutrophils Percent Auto 47.8 % (45.5-73.1); Platelet Count Result 143 k/mm3 (150-375); Red Blood Count 1.98 M/mm3 (4.6-6.20); Red Cell Distribution Width 14.7 % (11.5-14.5); White Blood Count 2.7 K/mm3 (4.5-10.0)
[2025-03-30 05:42] LABS: Alanine Aminotransferase 11 U/L (6-50); Alkaline Phosphatase 46 U/L (38-126); Anion Gap 4 mmol/L (4-12); Aspartate Amino Transferase 18 U/L (17-59); Bilirubin,Total 0.3 mg/dL (0.2-1.3); Blood Urea Nitrogen 19 mg/dL (9-20); Calcium 8.5 mg/dL (8.4-10.2); Carbon Dioxide 29 mmol/L (22-30); Chloride 105 mmol/L (98-107); Estimated CRCL calculation 37 ml/min; Estimated Glomerular Filt Rate 54; Glucose 134 mg/dL (65-110); Hypochromasia 1+; Magnesium 1.6 mg/dL (1.6-2.3); Platelet Estimate Adequate (Adequate); Poikilocytosis 1+; Potassium 4.1 mmol/L (3.4-5.0); Schistocytes None Seen; Sodium 138 mmol/L (137-145); Total Protein 5.6 g/dL (6.3-8.2)
[2025-03-30 05:59] LABS: Glucose Point of Care 186 mg/dl (65-105)
[2025-03-30] MEDS: CIPROFLOXACIN 400 MG/D5W 200ML 200 ML 200 MG IVPB ×3 (06:05→21:01)
[2025-03-30] MEDS: LEVOTHYROXINE SODIUM 100 MCG TABLET PO (06:05)
[2025-03-30 06:27] VITALS: BP 106/76; PULSE 68; RESP 16; TEMP 36.9; O2SAT 99
[2025-03-30 08:56] LABS: Glucose Point of Care 140 mg/dl (65-105)
[2025-03-30] MEDS: EMPAGLIFLOZIN 10 MG TABLET PO (09:12)
[2025-03-30] MEDS: RANOLAZINE 500 MG TAB.ER.12H PO ×2 (09:13→21:02)
[2025-03-30] MEDS: MULTIVITAMINS THERAPEUTIC TAB (*BKC) 1 TABLET PO (09:13)
[2025-03-30] MEDS: LINEZOLID 600 MG TABLET PO ×2 (09:13→21:02)
[2025-03-30] MEDS: DOCUSATE SODIUM 100 MG CAPSULE PO ×2 (09:13→21:02)
[2025-03-30] MEDS: OMEGA 3 POLYUNSAT FATTY ACIDS 1 GM CAP PO (09:13)
[2025-03-30] MEDS: FERROUS SULFATE 325 MG TABLET DR BY MOUTH ×3 (09:13→17:38)
[2025-03-30] MEDS: SACUBITRIL/VALSARTAN 24-26 MG TABLET 1 TAB PO ×2 (09:13→21:02)
[2025-03-30] MEDS: PANTOPRAZOLE SOD SESQUIHYDRATE 20 MG TAB PO (09:13)
[2025-03-30] MEDS: polyethylene glycoL 3350 17 GM POWD.PACK PO ×2 (09:17→17:39)
[2025-03-30 09:18] VITALS: PULSE 68
[2025-03-30] MEDS: carvediloL 3.125 MG TABLET PO (09:18)
--- NOTE | 2025-03-30 11:17 | P.PNUR_ITS ---
Progress Note: A&P Assessment and Plan (1) Gross hematuria: Code(s): R31.0 - Gross hematuria Status: Acute Assessment and Plan: Urine is clear after retrieval of the small clot. No other clots noted. Will continue CBI at a slow rate today in weaned to off in morning. Will see what his H&H shows in the morning also. Will keep NPO after midnight in case something needs to be addressed tomorrow. Subjective Subjective Date/Time Seen: 03/30/25 11:17 Principal diagnosis: Gross hematuria Interval history: Patient has been doing fairly well. When I walked in the room his catheter was not draining. I flushed in retrieved a small little clot and then it was crystal clear. CBI was crystal clear also. Hemoglobin at 7.3 today. Will continue to monitor. Review of Systems Review of Systems: All systems reviewed & are unremarkable except as noted in HPI and below Exam Const: General: cooperative and comfortable Resp: Effort & Inspection: normal respiratory effort Cardio: Rate: regular rate Rhythm: regular rhythm Urinary Catheter: Urinary Catheter: patent and draining and urine clear Objective Data Vital Signs Vital Signs: Vital Signs - 24 hr 03/29/25 12:00 03/29/25 21:30 03/30/25 06:27 Temperature 36.9 C 36.9 C Pulse Rate 66 68 Respiratory Rate 16 16 Blood Pressure 104/60 106/76 Pulse Oximetry 100 99 Oxygen Delivery Room Air 03/30/25 09:18 Temperature Pulse Rate 68 Respiratory Rate Blood Pressure Pulse Oximetry Oxygen Delivery Intake/Output Intake/Output: Intake & Output 03/27/25 03/28/25 03/29/25 03/30/25 23:59 23:59 23:59 23:59 Intake Total 2540 5290 480 Output Total 7880 350 600 Balance -5340 4940 -120 Meds/Results Medications: Active Medications Generic Name Dose Route Start Last Admin Trade Name Freq PRN Reason Stop Dose Admin Acetaminophen 650 mg 03/28/25 02:58 Acetaminophen 325 Mg Tablet PO Q4H PRN Mild Pain (1-3) or Fever Carvedilol 3.125 mg 03/29/25 09:00 03/30/25 09:18 Carvedilol 3.125 Mg Tablet PO 3.125 mg DAILY [facility] Administration Dextrose 12.5 gm 03/28/25 03:53 Dextrose 50% 25 Gm/50 Ml Syringe IV PUSH PRN PRN Hypoglycemia Protocol Docusate Sodium 100 mg 03/29/25 21:00 03/30/25 09:13 Docusate Sodium 100 Mg Capsule PO 100 mg Q12HR [facility] Administration Empagliflozin 10 mg 03/28/25 09:00 03/30/25 09:12 Empagliflozin 10 Mg Tablet PO 10 mg DAILY [facility] Administration Fentanyl Citrate 25 mcg 03/28/25 10:08 Fentanyl Citrate Inj (*Crx) 100 Mcg/2 Ml Vial IV PUSH Q2M PRN Pain Ferrous Sulfate 325 mg 03/28/25 17:00 03/30/25 09:13 Ferrous Sulfate [address] BY MOUTH 325 mg TID TR[facility] Administration Fish Oil 1 gm 03/29/25 09:00 03/30/25 09:13 [place] 3 Polyunsat Fatty Acids 1 Gm Cap PO 1 gm DAILY [facility] Administration Glucagon 1 mg 03/28/25 03:53 Glucagon For Inj 1 Mg Vial IM PRN PRN Hypoglycemia Protocol Glucose 15 gm 03/28/25 03:53 Glucose Oral Gel 15 Gm Of Glucse In 37.5 Gm Tube PO PRN PRN Hypoglycemia Protocol Lactated Ringer's 1,000 mls @ 100 mls/hr 03/28/25 03:00 03/30/25 02:55 Lr - Lactated Ringers Iv IV CONT 100 mls/hr .Q10H [facility] Administration Dextrose 1,000 mls @ 100 mls/hr 03/28/25 03:53 Dextrose 5% 1,000 Ml IVPB PRN PRN Hypoglycemia Protocol Ciprofloxacin/Dextrose 200 mls @ 200 mls/hr 03/28/25 22:00 03/30/25 06:05 Cipro 400 Mg/D5w 200 Ml IVPB 200 mls/hr Q8HR [facility] Administration Insulin Aspart 2 - 5 units 03/28/25 08:00 03/30/25 09:04 Insulin Aspart (*Bkc) 100 Units/Ml SUB-Q Not Given TIDWM [facility] Protocol Insulin Glargine 8 units 03/28/25 18:00 03/29/25 17:56 Insulin Glargine (*Bkc) 100 Units/Ml SUB-Q 8 units QPM [facility] Administration Levothyroxine Sodium 100 mcg 03/29/25 06:30 03/30/25 06:05 Levothyroxine Sodium 100 Mcg Tablet PO 100 mcg DAILY@0630 [facility] Administration Linezolid 600 mg 03/28/25 17:00 03/30/25 09:13 Linezolid 600 Mg Tablet PO 04/04/25 09:01 600 mg Q12HR [facility] Administration Multivitamins Therapeutic 1 tablet 03/29/25 09:00 03/30/25 09:13 Multivitamins Therapeutic Tab (*Bkc) PO 1 tablet DAILY [facility] Administration Nitroglycerin 0.4 mg 03/28/25 16:08 Nitroglycerin Sl 0.4 Mg Tablet SUBLINGUAL Q5M PRN chest pain Ondansetron HCl 4 mg 03/28/25 02:58 Ondansetron Inj 4 Mg/2 Ml Vial IV PUSH Q4H PRN Nausea Pantoprazole Sodium 20 mg 03/29/25 09:00 03/30/25 09:13 Pantoprazole Sod Sesquihydrate 20 Mg Tab PO 20 mg QAM [facility] Administration Polyethylene Glycol 17 gm 03/29/25 15:15 03/30/25 09:17 Polyethylene Glycol 3350 17 Gm Powd.Pack PO 17 gm QAM PRN Administration Constipation Ranolazine 500 mg 03/28/25 21:00 03/30/25 09:13 Ranolazine 500 Mg Tab.Er.12h PO 500 mg Q12HR [facility] Administration Sacubitril/Valsartan 1 tab 03/28/25 21:00 03/30/25 09:13 Sacubitril/Valsartan 24-26 Mg Tablet PO 1 tab Q12HR [facility] Administration Radiology Results: ITS Impressions Abdomen/Pelvis CT 03/28/25 04:49 Impression: Very large hematoma/blood clot in the urinary bladder measuring 10.6 x 7.9 cm. Probable markedly enlarged prostate gland indenting into the bladder base. Small nonobstructing renal stones, as above. Labs Labs: Laboratory Results - last 24 hr 03/29/25 03/29/25 03/29/25 11:51 17:37 20:47 WBC RBC Hgb Hct MCV MCH MCHC RDW Plt Count MPV Immature Gran % (Auto) Neut % (Auto) Lymph % (Auto) [place] % (Auto) Eos % (Auto) Baso % (Auto) Lymph # (Auto) [place] # (Auto) Eos # (Auto) Baso # (Auto) Abs Immat Gran (auto) Absolute Neuts (auto) Absolute Nucleated RBC Band Neutrophils % Nucleated RBC % Platelet Estimate Hypochromasia Poikilocytosis Schistocytes Sodium Potassium Chloride Carbon Dioxide Anion Gap BUN Creatinine Estim Creat Clear Calc Estimated GFR Glucose POC Capillary Glucose 219 H 201 H 186 H Calcium Magnesium Total Bilirubin AST ALT Alkaline Phosphatase Total Protein Albumin 03/30/25 03/30/25 05:12 08:25 WBC 2.7 L RBC 1.98 L Hgb 7.3 L Hct 22.6 L MCV 114.1 H MCH 36.9 H MCHC 32.3 RDW 14.7 H Plt Count 143 L MPV 9.5 Immature Gran % (Auto) 0.7 H Neut % (Auto) 47.8 Lymph % (Auto) 36.2 [place] % (Auto) 12.7 H Eos % (Auto) 2.2 Baso % (Auto) 0.4 Lymph # (Auto) 0.97 [place] # (Auto) 0.3 Eos # (Auto) 0.1 Baso # (Auto) 0.0 Abs Immat Gran (auto) 0.02 Absolute Neuts (auto) 1.3 Absolute Nucleated RBC 0.000 Band Neutrophils % Not Reportable Nucleated RBC % 0.0 Platelet Estimate Adequate Hypochromasia 1+ Poikilocytosis 1+ Schistocytes None seen Sodium 138 Potassium 4.1 Chloride 105 Carbon Dioxide 29 Anion Gap 4 BUN 19 Creatinine 1.28 Estim Creat Clear Calc 37 Estimated GFR 54 L Glucose 134 H POC Capillary Glucose 140 H Calcium 8.5 Magnesium 1.6 Total Bilirubin 0.3 AST 18 ALT 11 Alkaline Phosphatase 46 Total Protein 5.6 L Albumin 3.0 L
[2025-03-30 12:37] LABS: Glucose Point of Care 223 mg/dl (65-105)
[2025-03-30] MEDS: INSULIN ASPART (*BKC) 100 UNITS/ML SUB-Q (12:50)
[2025-03-30] MEDS: SENNA/DOCUSATE SODIUM TABLET 1 TAB PO ×2 (14:23→21:02)
--- NOTE | 2025-03-30 14:31 | P.PNIM_ITS ---
Progress Note: A&P Assessment and Plan (1) Clot hematuria: Code(s): R31.0 - Gross hematuria Status: Acute Assessment and Plan: -Hx neurogenic bladder with chronic indwelling Webber catheter -Recent cystoscopy with hematoma requiring fulguration -Catheter stopped draining, exchanged in ER tonight and 1500 mL grossly bloody hematuria quickly drained -CBI started, now nearly clear -Mild KARYNA on CKD noted Urology consulted underwent cystoscopy with clot evacuation and fulguration 03/28/2025 -Continue antibiotics ciprofloxacin. Recent urine culture with Enterococcus which was vancomycin intermediate ampicillin resistant and Pseudomonas. Follow urine culture cipro dose adjusted and on linezolid now urology notes reviewed: urine is clear after retrieval of the small clot. No other clots noted. Will continue CBI at a slow rate today in weaned to off in morning. Will see what his H&H shows in the morning also. Will keep NPO after midnight in case something needs to be addressed tomorrow. 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 Qualified Code(s): E11.65 - Type 2 diabetes mellitus with hyperglycemia Code(s): E11.65 - Type 2 diabetes mellitus with hyperglycemia Status: Acute Assessment and Plan: -Elevated glucose on admit -Continue Lantus -ACHS fingerstick glucose with SSI -Recent A1c 7.2 a few months ago (4) Iron deficiency anemia: Code(s): D50.9 - Iron deficiency anemia, unspecified Status: Acute Assessment and Plan: -Stable hemoglobin at 10 upon ER evaluation (5) Hypothyroidism (acquired): Code(s): E03.9 - Hypothyroidism, unspecified Status: Acute Assessment and Plan: -Continue levothyroxine (6) Acute UTI: Code(s): N39.0 - Urinary tract infection, site not specified Status: Acute Assessment and Plan: pseudomonasa, enterococcus in ua cipro 400 mg q8 IV, linezolid 600 mg q12 Time Spent With Patient Time with patient: 25 - 35 minutes Subjective Date/time seen: 03/30/25 14:31 Interval history: CBI restarted. Had to be irrigated few times overnight. NO BM yet. Review of Systems Review of Systems: All systems reviewed & are unremarkable except as noted in HPI and below Exam Narrative: GENERAL: Well-appearing, well-nourished, and in no acute distress. HEAD: Normocephalic, atraumatic. ENT:? Mucous membranes moist. CHEST: Clear to auscultation.? No respiratory distress. HEART: Regular rate and rhythm. ? Normal peripheral pulses. ABDOMEN: Soft, nontender, nondistended. Webber catheter in place with CBI EXTREMITIES: Normal range of motion. No peripheral edema. SKIN: Warm dry normal color NEURO: Alert and oriented x3. PSYCH: Normal mood and affect Const: General: comfortable Objective Data Vital Signs Vital Signs: Vital Signs - 24 hr 03/29/25 21:30 03/30/25 06:27 03/30/25 08:00 Temperature 98.4 F Pulse Rate 68 Respiratory Rate 16 Blood Pressure 106/76 Pulse Oximetry 99 Oxygen Delivery Room Air Room Air 03/30/25 09:18 Temperature Pulse Rate 68 Respiratory Rate Blood Pressure Pulse Oximetry Oxygen Delivery Intake/Output Intake/Output: Intake & Output 03/27/25 03/28/25 03/29/25 03/30/25 23:59 23:59 23:59 23:59 Intake Total 2540 5290 680 Output Total 7880 350 600 Balance -5340 4940 80 Meds/Results Medications: Active Medications Generic Name Dose Route Start Last Admin Trade Name Freq PRN Reason Stop Dose Admin Acetaminophen 650 mg 03/28/25 02:58 Acetaminophen 325 Mg Tablet PO Q4H PRN Mild Pain (1-3) or Fever Carvedilol 3.125 mg 03/29/25 09:00 03/30/25 09:18 Carvedilol 3.125 Mg Tablet PO 3.125 mg DAILY TROY Administration Dextrose 12.5 gm 03/28/25 03:53 Dextrose 50% 25 Gm/50 Ml Syringe IV PUSH PRN PRN Hypoglycemia Protocol Docusate Sodium 100 mg 03/29/25 21:00 03/30/25 09:13 Docusate Sodium 100 Mg Capsule PO 100 mg Q12HR TROY Administration Empagliflozin 10 mg 03/28/25 09:00 03/30/25 09:12 Empagliflozin 10 Mg Tablet PO 10 mg DAILY TROY Administration Fentanyl Citrate 25 mcg 03/28/25 10:08 Fentanyl Citrate Inj (*Crx) 100 Mcg/2 Ml Vial IV PUSH Q2M PRN Pain Ferrous Sulfate 325 mg 03/28/25 17:00 03/30/25 12:50 Ferrous Sulfate [address] BY MOUTH 325 mg TID TROY Administration Fish Oil 1 gm 03/29/25 09:00 03/30/25 09:13 [place] 3 Polyunsat Fatty Acids 1 Gm Cap PO 1 gm DAILY TROY Administration Glucagon 1 mg 03/28/25 03:53 Glucagon For Inj 1 Mg Vial IM PRN PRN Hypoglycemia Protocol Glucose 15 gm 03/28/25 03:53 Glucose Oral Gel 15 Gm Of Glucse In 37.5 Gm Tube PO PRN PRN Hypoglycemia Protocol Lactated Ringer's 1,000 mls @ 100 mls/hr 03/28/25 03:00 03/30/25 02:55 Lr - Lactated Ringers Iv IV CONT 100 mls/hr .Q10H TROY Administration Dextrose 1,000 mls @ 100 mls/hr 03/28/25 03:53 Dextrose 5% 1,000 Ml IVPB PRN PRN Hypoglycemia Protocol Ciprofloxacin/Dextrose 200 mls @ 200 mls/hr 03/28/25 22:00 03/30/25 13:09 Cipro 400 Mg/D5w 200 Ml IVPB 200 mls/hr Q8HR TROY Administration Insulin Aspart 2 - 5 units 03/28/25 08:00 03/30/25 12:50 Insulin Aspart (*Bkc) 100 Units/Ml SUB-Q 2 units TIDWM TROY Administration Protocol Insulin Glargine 8 units 03/28/25 18:00 03/29/25 17:56 Insulin Glargine (*Bkc) 100 Units/Ml SUB-Q 8 units QPM TROY Administration Levothyroxine Sodium 100 mcg 03/29/25 06:30 03/30/25 06:05 Levothyroxine Sodium 100 Mcg Tablet PO 100 mcg DAILY@0630 TROY Administration Linezolid 600 mg 03/28/25 17:00 03/30/25 09:13 Linezolid 600 Mg Tablet PO 04/04/25 09:01 600 mg Q12HR TROY Administration Multivitamins Therapeutic 1 tablet 03/29/25 09:00 03/30/25 09:13 Multivitamins Therapeutic Tab (*Bkc) PO 1 tablet DAILY TROY Administration Nitroglycerin 0.4 mg 03/28/25 16:08 Nitroglycerin Sl 0.4 Mg Tablet SUBLINGUAL Q5M PRN chest pain Ondansetron HCl 4 mg 03/28/25 02:58 Ondansetron Inj 4 Mg/2 Ml Vial IV PUSH Q4H PRN Nausea Pantoprazole Sodium 20 mg 03/29/25 09:00 03/30/25 09:13 Pantoprazole Sod Sesquihydrate 20 Mg Tab PO 20 mg QAM TROY Administration Polyethylene Glycol 17 gm 03/29/25 15:15 03/30/25 09:17 Polyethylene Glycol 3350 17 Gm Powd.Pack PO 17 gm QAM PRN Administration Constipation Ranolazine 500 mg 03/28/25 21:00 03/30/25 09:13 Ranolazine 500 Mg Tab.Er.12h PO 500 mg Q12HR TROY Administration Sacubitril/Valsartan 1 tab 03/28/25 21:00 03/30/25 09:13 Sacubitril/Valsartan 24-26 Mg Tablet PO 1 tab Q12HR TROY Administration Senna/Docusate Sodium 1 tab 03/30/25 13:30 03/30/25 14:23 Senna/Docusate Sodium Tablet PO 1 tab HS TROY Administration Radiology Results: ITS Impressions Abdomen/Pelvis CT 03/28/25 04:49 Impression: Very large hematoma/blood clot in the urinary bladder measuring 10.6 x 7.9 cm. Probable markedly enlarged prostate gland indenting into the bladder base. Small nonobstructing renal stones, as above. Labs Labs: Laboratory Results - last 24 hr 03/29/25 03/29/25 03/30/25 17:37 20:47 05:12 WBC 2.7 L RBC 1.98 L Hgb 7.3 L Hct 22.6 L MCV 114.1 H MCH 36.9 H MCHC 32.3 RDW 14.7 H Plt Count 143 L MPV 9.5 Immature Gran % (Auto) 0.7 H Neut % (Auto) 47.8 Lymph % (Auto) 36.2 [place] % (Auto) 12.7 H Eos % (Auto) 2.2 Baso % (Auto) 0.4 Lymph # (Auto) 0.97 [place] # (Auto) 0.3 Eos # (Auto) 0.1 Baso # (Auto) 0.0 Abs Immat Gran (auto) 0.02 Absolute Neuts (auto) 1.3 Absolute Nucleated RBC 0.000 Band Neutrophils % Not Reportable Nucleated RBC % 0.0 Platelet Estimate Adequate Hypochromasia 1+ Poikilocytosis 1+ Schistocytes None seen Sodium 138 Potassium 4.1 Chloride 105 Carbon Dioxide 29 Anion Gap 4 BUN 19 Creatinine 1.28 Estim Creat Clear Calc 37 Estimated GFR 54 L Glucose 134 H POC Capillary Glucose 201 H 186 H Calcium 8.5 Magnesium 1.6 Total Bilirubin 0.3 AST 18 ALT 11 Alkaline Phosphatase 46 Total Protein 5.6 L Albumin 3.0 L 03/30/25 03/30/25 08:25 12:17 WBC RBC Hgb Hct MCV MCH MCHC RDW Plt Count MPV Immature Gran % (Auto) Neut % (Auto) Lymph % (Auto) [place] % (Auto) Eos % (Auto) Baso % (Auto) Lymph # (Auto) [place] # (Auto) Eos # (Auto) Baso # (Auto) Abs Immat Gran (auto) Absolute Neuts (auto) Absolute Nucleated RBC Band Neutrophils % Nucleated RBC % Platelet Estimate Hypochromasia Poikilocytosis Schistocytes Sodium Potassium Chloride Carbon Dioxide Anion Gap BUN Creatinine Estim Creat Clear Calc Estimated GFR Glucose POC Capillary Glucose 140 H 223 H Calcium Magnesium Total Bilirubin AST ALT Alkaline Phosphatase Total Protein Albumin Quality VTE Prophylaxis VTE prophylaxis: mechanical ordered
[2025-03-30 17:25] LABS: Glucose Point of Care 152 mg/dl (65-105)
[2025-03-30] MEDS: INSULIN GLARGINE (*BKC) 100 UNITS/ML 8 UNITS SUB-Q (17:39)
[2025-03-30 20:35] VITALS: BP 152/56; PULSE 68; RESP 16; TEMP 36.6; O2SAT 100
[2025-03-30 21:51] LABS: Glucose Point of Care 193 mg/dl (65-105)
[2025-03-31 04:33] VITALS: BP 120/60; PULSE 60; RESP 18; TEMP 36.9; O2SAT 100
[2025-03-31] MEDS: LACTATED RINGERS 1,000 ML 100 ML IV CONT ×2 (04:40→17:19)
[2025-03-31] MEDS: CIPROFLOXACIN 400 MG/D5W 200ML 200 ML 200 MG IVPB ×3 (04:59→22:39)
[2025-03-31 05:57] LABS: Basophils Percent Auto 0.6 % (0.2-1.2); Eosinophils Absolute Auto 0.1 K/mm3 (0-0.3); Eosinophils Percent Auto 2.5 % (0-4.4); Hematocrit 22.9 % (42.0-52.0); Hemoglobin 7.3 g/dL (14.0-18.0); Immature Granulocyte Absolute 0.01 K/mm3 (0.00-0.031); Immature Granulocyte Percent A 0.3 % (0-0.5); Lymphocytes Absolute Auto 1.08 K/mm3 (0.9-3.2); Lymphocytes Percent Auto 33.9 % (18.3-44.2); Mean Corpuscular HGB Conc 31.9 g/dl (32-36); Mean Corpuscular Hemoglobin 36.5 pg (26-34); Mean Corpuscular Volume 114.5 fl (80-100); Mean Platelet Volume 9.8 fl (7.4-10.4); Monocytes Absolute Auto 0.4 K/mm3 (0.1-0.6); Monocytes Percent Auto 13.8 % (2.6-8.5); Neutrophils Absolute Auto 1.6 K/mm3 (1.3-6.7); Neutrophils Percent Auto 48.9 % (45.5-73.1); Platelet Count Result 160 k/mm3 (150-375); Red Cell Distribution Width 14.1 % (11.5-14.5); White Blood Count 3.2 K/mm3 (4.5-10.0)
[2025-03-31 06:11] LABS: Alanine Aminotransferase 12 U/L (6-50); Albumin Level 3.1 g/dL (3.5-5.1); Alkaline Phosphatase 49 U/L (38-126); Anion Gap 3 mmol/L (4-12); Aspartate Amino Transferase 19 U/L (17-59); Bilirubin,Total 0.2 mg/dL (0.2-1.3); Blood Urea Nitrogen 19 mg/dL (9-20); Calcium 8.7 mg/dL (8.4-10.2); Carbon Dioxide 29 mmol/L (22-30); Chloride 104 mmol/L (98-107); Estimated CRCL calculation 37 ml/min; Estimated Glomerular Filt Rate 55; Glucose 120 mg/dL (65-110); Magnesium 1.5 mg/dL (1.6-2.3); Potassium 4.1 mmol/L (3.4-5.0); Sodium 136 mmol/L (137-145); Total Protein 5.7 g/dL (6.3-8.2)
[2025-03-31 06:36] LABS: Platelet Estimate Adequate (Adequate)
[2025-03-31 06:38] LABS: Hypochromasia 1+; Macrocytosis 1+ (NORMAL)
[2025-03-31 06:39] LABS: Ovalocytes 1+; Schistocytes None Seen
[2025-03-31] MEDS: polyethylene glycoL 3350 17 GM POWD.PACK PO (08:48)
[2025-03-31] MEDS: RANOLAZINE 500 MG TAB.ER.12H PO ×2 (08:49→20:26)
[2025-03-31] MEDS: DOCUSATE SODIUM 100 MG CAPSULE PO ×2 (08:49→20:26)
[2025-03-31] MEDS: SACUBITRIL/VALSARTAN 24-26 MG TABLET 1 TAB PO ×2 (08:49→20:26)
[2025-03-31] MEDS: ACETAMINOPHEN 325 MG TABLET 650 MG PO (08:49)
[2025-03-31] MEDS: OMEGA 3 POLYUNSAT FATTY ACIDS 1 GM CAP PO (08:49)
[2025-03-31] MEDS: FERROUS SULFATE 325 MG TABLET DR BY MOUTH ×3 (08:49→17:19)
[2025-03-31] MEDS: LINEZOLID 600 MG TABLET PO ×2 (08:49→20:26)
[2025-03-31] MEDS: EMPAGLIFLOZIN 10 MG TABLET PO (08:49)
[2025-03-31] MEDS: MULTIVITAMINS THERAPEUTIC TAB (*BKC) 1 TABLET PO (08:49)
[2025-03-31 08:50] VITALS: PULSE 60
[2025-03-31] MEDS: carvediloL 3.125 MG TABLET PO (08:50)
[2025-03-31] MEDS: PANTOPRAZOLE SOD SESQUIHYDRATE 20 MG TAB PO (08:50)
--- NOTE | 2025-03-31 09:00 | WPDUROPN2 ---
Progress Note: A&P Assessment and Plan (1) Gross hematuria: Code(s): R31.0 - Gross hematuria Status: Acute Assessment and Plan: Appears to have resolved at this point time. Will continue to hold CBI. If urine remains clear he can be discharged home with Webber catheter from my standpoint. He may have a diet today. He will be scheduled for prostate artery embolization in the near future. Subjective Subjective Date/Time Seen: 03/31/25 09:00 Principal diagnosis: Gross hematuria with clots Interval history: [place] is doing much better today. His urine is crystal clear off CBI. His only complaint now is no bowel movement and some right knee pain. Will defer management of that to the primary care service Review of Systems Review of Systems: All systems reviewed & are unremarkable except as noted in HPI and below Exam Const: General: cooperative Resp: Effort & Inspection: normal respiratory effort Cardio: Rate: regular rate Rhythm: regular rhythm Urinary Catheter: Urinary Catheter: patent and draining and urine clear Objective Data Vital Signs Vital Signs: Vital Signs - 24 hr 03/30/25 09:18 03/30/25 20:35 03/30/25 21:00 Temperature 36.6 C Pulse Rate 68 68 Respiratory Rate 16 Blood Pressure 152/56 H Pulse Oximetry 100 Oxygen Delivery Room Air 03/31/25 04:33 03/31/25 08:50 Temperature 36.9 C Pulse Rate 60 60 Respiratory Rate 18 Blood Pressure 120/60 Pulse Oximetry 100 Oxygen Delivery Intake/Output Intake/Output: Intake & Output 03/28/25 03/29/25 03/30/25 03/31/25 23:59 23:59 23:59 23:59 Intake Total 2540 5290 4240 1500 Output Total 7880 350 2750 1700 Balance -5340 4940 1490 -200 Meds/Results Medications: Active Medications Generic Name Dose Route Start Last Admin Trade Name Freq PRN Reason Stop Dose Admin Acetaminophen 650 mg 03/28/25 02:58 03/31/25 08:49 Acetaminophen 325 Mg Tablet PO 650 mg Q4H PRN Administration Mild Pain (1-3) or Fever Carvedilol 3.125 mg 03/29/25 09:00 03/31/25 08:50 Carvedilol 3.125 Mg Tablet PO 3.125 mg DAILY TROY Administration Dextrose 12.5 gm 03/28/25 03:53 Dextrose 50% 25 Gm/50 Ml Syringe IV PUSH PRN PRN Hypoglycemia Protocol Docusate Sodium 100 mg 03/29/25 21:00 03/31/25 08:49 Docusate Sodium 100 Mg Capsule PO 100 mg Q12HR TROY Administration Empagliflozin 10 mg 03/28/25 09:00 03/31/25 08:49 Empagliflozin 10 Mg Tablet PO 10 mg DAILY TROY Administration Fentanyl Citrate 25 mcg 03/28/25 10:08 Fentanyl Citrate Inj (*Crx) 100 Mcg/2 Ml Vial IV PUSH Q2M PRN Pain Ferrous Sulfate 325 mg 03/28/25 17:00 03/31/25 08:49 Ferrous Sulfate [address] BY MOUTH 325 mg TID TROY Administration Fish Oil 1 gm 03/29/25 09:00 03/31/25 08:49 [place] 3 Polyunsat Fatty Acids 1 Gm Cap PO 1 gm DAILY TROY Administration Glucagon 1 mg 03/28/25 03:53 Glucagon For Inj 1 Mg Vial IM PRN PRN Hypoglycemia Protocol Glucose 15 gm 03/28/25 03:53 Glucose Oral Gel 15 Gm Of Glucse In 37.5 Gm Tube PO PRN PRN Hypoglycemia Protocol Lactated Ringer's 1,000 mls @ 100 mls/hr 03/28/25 03:00 03/31/25 04:40 Lr - Lactated Ringers Iv IV CONT 100 mls/hr .Q10H TROY Administration Dextrose 1,000 mls @ 100 mls/hr 03/28/25 03:53 Dextrose 5% 1,000 Ml IVPB PRN PRN Hypoglycemia Protocol Ciprofloxacin/Dextrose 200 mls @ 200 mls/hr 03/28/25 22:00 03/31/25 05:59 Cipro 400 Mg/D5w 200 Ml IVPB Infused Q8HR TROY Infusion Insulin Aspart 2 - 5 units 03/28/25 08:00 03/31/25 08:48 Insulin Aspart (*Bkc) 100 Units/Ml SUB-Q Not Given TIDWM [facility] Protocol Insulin Glargine 8 units 03/28/25 18:00 03/30/25 17:39 Insulin Glargine (*Bkc) 100 Units/Ml SUB-Q 8 units QPM TROY Administration Levothyroxine Sodium 100 mcg 03/29/25 06:30 03/31/25 08:46 Levothyroxine Sodium 100 Mcg Tablet PO Not Given DAILY@0630 [facility] Linezolid 600 mg 03/28/25 17:00 03/31/25 08:49 Linezolid 600 Mg Tablet PO 04/04/25 09:01 600 mg Q12HR TROY Administration Multivitamins Therapeutic 1 tablet 03/29/25 09:00 03/31/25 08:49 Multivitamins Therapeutic Tab (*Bkc) PO 1 tablet DAILY TROY Administration Nitroglycerin 0.4 mg 03/28/25 16:08 Nitroglycerin Sl 0.4 Mg Tablet SUBLINGUAL Q5M PRN chest pain Ondansetron HCl 4 mg 03/28/25 02:58 Ondansetron Inj 4 Mg/2 Ml Vial IV PUSH Q4H PRN Nausea Pantoprazole Sodium 20 mg 03/29/25 09:00 03/31/25 08:50 Pantoprazole Sod Sesquihydrate 20 Mg Tab PO 20 mg QAM TROY Administration Polyethylene Glycol 17 gm 03/29/25 15:15 03/31/25 08:48 Polyethylene Glycol 3350 17 Gm Powd.Pack PO 17 gm QAM PRN Administration Constipation Ranolazine 500 mg 03/28/25 21:00 03/31/25 08:49 Ranolazine 500 Mg Tab.Er.12h PO 500 mg Q12HR TROY Administration Sacubitril/Valsartan 1 tab 03/28/25 21:00 03/31/25 08:49 Sacubitril/Valsartan 24-26 Mg Tablet PO 1 tab Q12HR TROY Administration Senna/Docusate Sodium 1 tab 03/30/25 13:30 03/30/25 21:02 Senna/Docusate Sodium Tablet PO 1 tab HS TROY Administration Radiology Results: ITS Impressions Abdomen/Pelvis CT 03/28/25 04:49 Impression: Very large hematoma/blood clot in the urinary bladder measuring 10.6 x 7.9 cm. Probable markedly enlarged prostate gland indenting into the bladder base. Small nonobstructing renal stones, as above. Labs Labs: Laboratory Results - last 24 hr 03/30/25 03/30/25 03/30/25 12:17 17:12 20:38 WBC RBC Hgb Hct MCV MCH MCHC RDW Plt Count MPV Immature Gran % (Auto) Neut % (Auto) Lymph % (Auto) [place] % (Auto) Eos % (Auto) Baso % (Auto) Lymph # (Auto) [place] # (Auto) Eos # (Auto) Baso # (Auto) Abs Immat Gran (auto) Absolute Neuts (auto) Absolute Nucleated RBC Band Neutrophils % Nucleated RBC % Platelet Estimate Hypochromasia Macrocytosis Ovalocytes Schistocytes Sodium Potassium Chloride Carbon Dioxide Anion Gap BUN Creatinine Estim Creat Clear Calc Estimated GFR Glucose POC Capillary Glucose 223 H 152 H 193 H Calcium Magnesium Total Bilirubin AST ALT Alkaline Phosphatase Total Protein Albumin 03/31/25 05:15 WBC 3.2 L RBC 2.00 L Hgb 7.3 L Hct 22.9 L MCV 114.5 H MCH 36.5 H MCHC 31.9 L RDW 14.1 Plt Count 160 MPV 9.8 Immature Gran % (Auto) 0.3 Neut % (Auto) 48.9 Lymph % (Auto) 33.9 [place] % (Auto) 13.8 H Eos % (Auto) 2.5 Baso % (Auto) 0.6 Lymph # (Auto) 1.08 [place] # (Auto) 0.4 Eos # (Auto) 0.1 Baso # (Auto) 0.0 Abs Immat Gran (auto) 0.01 Absolute Neuts (auto) 1.6 Absolute Nucleated RBC 0.000 Band Neutrophils % Not Reportable Nucleated RBC % 0.0 Platelet Estimate Adequate Hypochromasia 1+ Macrocytosis 1+ Ovalocytes 1+ Schistocytes None seen Sodium 136 L Potassium 4.1 Chloride 104 Carbon Dioxide 29 Anion Gap 3 L BUN 19 Creatinine 1.27 Estim Creat Clear Calc 37 Estimated GFR 55 L Glucose 120 H POC Capillary Glucose Calcium 8.7 Magnesium 1.5 L Total Bilirubin 0.2 AST 19 ALT 12 Alkaline Phosphatase 49 Total Protein 5.7 L Albumin 3.1 L
[2025-03-31 09:33] LABS: Glucose Point of Care 212 mg/dl (65-105)
[2025-03-31] MEDS: KETOROLAC 10 MG TABLET PO (13:06)
--- NOTE | 2025-03-31 13:25 | PM.IMPN ---
Progress Note: A&P Assessment and Plan (1) Clot hematuria: Code(s): R31.0 - Gross hematuria Status: Acute Assessment and Plan: -Hx neurogenic bladder with chronic indwelling Saini catheter -Recent cystoscopy with hematoma requiring fulguration -Catheter stopped draining, exchanged in ER tonight and 1500 mL grossly bloody hematuria quickly drained -CBI started, now nearly clear -Mild KARYNA on CKD noted Urology consulted underwent cystoscopy with clot evacuation and fulguration 03/28/2025 -Continue antibiotics ciprofloxacin. Recent urine culture with Enterococcus which was vancomycin intermediate ampicillin resistant and Pseudomonas. Follow urine culture cipro dose adjusted and on linezolid now urology notes reviewed: urine is clear after retrieval of the small clot. No other clots noted. Will continue CBI at a slow rate today in weaned to off in morning. Will see what his H&H shows in the morning also. Will keep NPO after midnight in case something needs to be addressed tomorrow. 6/8 h/h stable, urology ok with d/c home with saini (2) Acute on chronic kidney failure: Code(s): N17.9 - Acute kidney failure, unspecified; N18.9 - Chronic kidney disease, unspecified Status: Acute Assessment and Plan: -Likely post-obstructive and should improve with bladder evacuation -Cr 1.54, BUN 22, eGFR 44, eCrCl 30 upon ER arrival Creatinine improving (3) Type 2 diabetes mellitus with hyperglycemia: Qualifiers: Diabetes mellitus intermediate frame tender insulin use: without intermediate frame tender use Qualified Code(s): E11.65 - Type 2 diabetes mellitus with hyperglycemia Code(s): E11.65 - Type 2 diabetes mellitus with hyperglycemia Status: Acute Assessment and Plan: -Elevated glucose on admit -Continue Lantus -ACHS fingerstick glucose with SSI -Recent A1c 7.2 a few months ago (4) Iron deficiency anemia: Code(s): D50.9 - Iron deficiency anemia, unspecified Status: Acute Assessment and Plan: -Stable hemoglobin at 10 upon ER evaluation (5) Hypothyroidism (acquired): Code(s): E03.9 - Hypothyroidism, unspecified Status: Acute Assessment and Plan: -Continue levothyroxine (6) Acute UTI: Code(s): N39.0 - Urinary tract infection, site not specified Status: Acute Assessment and Plan: pseudomonasa, enterococcus in ua cipro 400 mg q8 IV, linezolid 600 mg q12 Plan rt knee sharp pain- will order xray to ensure nothing acute going on lidocaine patch toradol prn will add pt/ot as pt has to walk up 5 flights of stairs at home Time Spent With Patient Time with patient: 25 - 35 minutes Subjective Date/time seen: 03/31/25 13:25 Interval history: [place] is doing better- CBI stopped, urine is clear. He is still constipation- one small BM so far and rt knee had been hurting a lot. NO trauma or fall, had some pain in the past but it had been hurting a lot lastly. Urology is ok with discharge. Review of Systems Review of Systems: All systems reviewed & are unremarkable except as noted in HPI and below Exam Narrative: GENERAL: Well-appearing, well-nourished, and in no acute distress. HEAD: Normocephalic, atraumatic. ENT:? Mucous membranes moist. CHEST: Clear to auscultation.? No respiratory distress. HEART: Regular rate and rhythm. ? Normal peripheral pulses. ABDOMEN: Soft, nontender, nondistended. Saini catheter in place with CBI EXTREMITIES: Normal range of motion. No peripheral edema. SKIN: Warm dry normal color NEURO: Alert and oriented x3. PSYCH: Normal mood and affect Const: General: comfortable Objective Data Vital Signs Vital Signs: Vital Signs - 24 hr 03/30/25 20:35 03/30/25 21:00 03/31/25 04:33 Temperature 98 F 98.4 F Pulse Rate 68 60 Respiratory Rate 16 18 Blood Pressure 152/56 H 120/60 Pulse Oximetry 100 100 Oxygen Delivery Room Air 03/31/25 08:00 03/31/25 08:50 Temperature Pulse Rate 60 Respiratory Rate Blood Pressure Pulse Oximetry Oxygen Delivery Room Air Intake/Output Intake/Output: Intake & Output 03/28/25 03/29/25 03/30/25 03/31/25 23:59 23:59 23:59 23:59 Intake Total 5514 9991 4240 2460 Output Total 7882 350 2750 1700 Balance -5340 3140 5340 008 Meds/Results Medications: Active Medications Generic Name Dose Route Start Last Admin Trade Name Freq PRN Reason Stop Dose Admin Acetaminophen 650 mg 03/28/25 02:58 03/31/25 08:49 Acetaminophen 325 Mg Tablet PO 650 mg Q4H PRN Administration Mild Pain (1-3) or Fever Carvedilol 3.125 mg 03/29/25 09:00 03/31/25 08:50 Carvedilol 3.125 Mg Tablet PO 3.125 mg DAILY TROY Administration Dextrose 12.5 gm 03/28/25 03:53 Dextrose 50% 25 Gm/50 Ml Syringe IV PUSH PRN PRN Hypoglycemia Protocol Docusate Sodium 100 mg 03/29/25 21:00 03/31/25 08:49 Docusate Sodium 100 Mg Capsule PO 100 mg Q12HR TROY Administration Empagliflozin 10 mg 03/28/25 09:00 03/31/25 08:49 Empagliflozin 10 Mg Tablet PO 10 mg DAILY TROY Administration Fentanyl Citrate 25 mcg 03/28/25 10:08 Fentanyl Citrate Inj (*Crx) 100 Mcg/2 Ml Vial IV PUSH Q2M PRN Pain Ferrous Sulfate 325 mg 03/28/25 17:00 03/31/25 13:05 Ferrous Sulfate [address] BY MOUTH 325 mg TID TROY Administration Fish Oil 1 gm 03/29/25 09:00 03/31/25 08:49 [place] 3 Polyunsat Fatty Acids 1 Gm Cap PO 1 gm DAILY TROY Administration Glucagon 1 mg 03/28/25 03:53 Glucagon For Inj 1 Mg Vial IM PRN PRN Hypoglycemia Protocol Glucose 15 gm 03/28/25 03:53 Glucose Oral Gel 15 Gm Of Glucse In 37.5 Gm Tube PO PRN PRN Hypoglycemia Protocol Lactated Ringer's 1,000 mls @ 100 mls/hr 03/28/25 03:00 03/31/25 04:40 Lr - Lactated Ringers Iv IV CONT 100 mls/hr .Q10H TROY Administration Dextrose 1,000 mls @ 100 mls/hr 03/28/25 03:53 Dextrose 5% 1,000 Ml IVPB PRN PRN Hypoglycemia Protocol Ciprofloxacin/Dextrose 200 mls @ 200 mls/hr 03/28/25 22:00 03/31/25 13:04 Cipro 400 Mg/D5w 200 Ml IVPB 200 mls/hr Q8HR TROY Administration Insulin Aspart 2 - 5 units 03/28/25 08:00 03/31/25 13:02 Insulin Aspart (*Bkc) 100 Units/Ml SUB-Q Not Given TIDWM [facility] [place] Protocol Insulin Glargine 8 units 03/28/25 18:00 03/30/25 17:39 Insulin Glargine (*Bkc) 100 Units/Ml SUB-Q 8 units QPM TROY Administration Ketorolac Tromethamine 10 mg 03/31/25 12:02 03/31/25 13:06 Ketorolac 10 Mg Tablet PO 10 mg Q6H PRN Administration Pain Rated 4-6 Levothyroxine Sodium 100 mcg 03/29/25 06:30 03/31/25 08:46 Levothyroxine Sodium 100 Mcg Tablet PO Not Given DAILY@0630 [facility] [place] Lidocaine 1 patch 04/01/25 09:00 Lidocaine 5% Patch TRANSDERM DAILY [facility] Linezolid 600 mg 03/28/25 17:00 03/31/25 08:49 Linezolid 600 Mg Tablet PO 04/04/25 09:01 600 mg Q12HR [facility] [place] Administration Multivitamins Therapeutic 1 tablet 03/29/25 09:00 03/31/25 08:49 Multivitamins Therapeutic Tab (*Bkc) PO 1 tablet DAILY TROY Administration Nitroglycerin 0.4 mg 03/28/25 16:08 Nitroglycerin Sl 0.4 Mg Tablet SUBLINGUAL Q5M PRN chest pain Ondansetron HCl 4 mg 03/28/25 02:58 Ondansetron Inj 4 Mg/2 Ml Vial IV PUSH Q4H PRN Nausea Pantoprazole Sodium 20 mg 03/29/25 09:00 03/31/25 08:50 Pantoprazole Sod Sesquihydrate 20 Mg Tab PO 20 mg QAM TROY Administration Polyethylene Glycol 17 gm 03/29/25 15:15 03/31/25 08:48 Polyethylene Glycol 3350 17 Gm Powd.Pack PO 17 gm QAM PRN Administration Constipation Ranolazine 500 mg 03/28/25 21:00 03/31/25 08:49 Ranolazine 500 Mg Tab.Er.12h PO 500 mg Q12HR TROY Administration Sacubitril/Valsartan 1 tab 03/28/25 21:00 03/31/25 08:49 Sacubitril/Valsartan 24-26 Mg Tablet PO 1 tab Q12HR TROY Administration Senna/Docusate Sodium 1 tab 03/30/25 13:30 03/30/25 21:02 Senna/Docusate Sodium Tablet PO 1 tab HS TROY Administration Radiology Results: ITS Impressions Abdomen/Pelvis CT 03/28/25 04:49 Impression: Very large hematoma/blood clot in the urinary bladder measuring 10.6 x 7.9 cm. Probable markedly enlarged prostate gland indenting into the bladder base. Small nonobstructing renal stones, as above. 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 Moderate joint effusion. Labs Labs: Laboratory Results - last 24 hr 03/30/25 03/30/25 03/31/25 17:12 20:38 05:15 WBC 3.2 L RBC 2.00 L Hgb 7.3 L Hct 22.9 L MCV 114.5 H MCH 36.5 H MCHC 31.9 L RDW 14.1 Plt Count 160 MPV 9.8 Immature Gran % (Auto) 0.3 Neut % (Auto) 48.9 Lymph % (Auto) 33.9 [place] % (Auto) 13.8 H Eos % (Auto) 2.5 Baso % (Auto) 0.6 Lymph # (Auto) 1.08 [place] # (Auto) 0.4 Eos # (Auto) 0.1 Baso # (Auto) 0.0 Abs Immat Gran (auto) 0.01 Absolute Neuts (auto) 1.6 Absolute Nucleated RBC 0.000 Band Neutrophils % Not Reportable Nucleated RBC % 0.0 Platelet Estimate Adequate Hypochromasia 1+ Macrocytosis 1+ Ovalocytes 1+ Schistocytes None seen Sodium 136 L Potassium 4.1 Chloride 104 Carbon Dioxide 29 Anion Gap 3 L BUN 19 Creatinine 1.27 Estim Creat Clear Calc 37 Estimated GFR 55 L Glucose 120 H POC Capillary Glucose 152 H 193 H Calcium 8.7 Magnesium 1.5 L Total Bilirubin 0.2 AST 19 ALT 12 Alkaline Phosphatase 49 Total Protein 5.7 L Albumin 3.1 L 03/31/25 09:27 WBC RBC Hgb Hct MCV MCH MCHC RDW Plt Count MPV Immature Gran % (Auto) Neut % (Auto) Lymph % (Auto) [place] % (Auto) Eos % (Auto) Baso % (Auto) Lymph # (Auto) [place] # (Auto) Eos # (Auto) Baso # (Auto) Abs Immat Gran (auto) Absolute Neuts (auto) Absolute Nucleated RBC Band Neutrophils % Nucleated RBC % Platelet Estimate Hypochromasia Macrocytosis Ovalocytes Schistocytes Sodium Potassium Chloride Carbon Dioxide Anion Gap BUN Creatinine Estim Creat Clear Calc Estimated GFR Glucose POC Capillary Glucose 212 H Calcium Magnesium Total Bilirubin AST ALT Alkaline Phosphatase Total Protein Albumin Quality VTE Prophylaxis VTE prophylaxis: mechanical ordered
[2025-03-31] MEDS: INSULIN ASPART (*BKC) 100 UNITS/ML SUB-Q (17:26)
[2025-03-31] MEDS: INSULIN GLARGINE (*BKC) 100 UNITS/ML 8 UNITS SUB-Q (17:27)
[2025-03-31 17:28] LABS: Glucose Point of Care 330 mg/dl (65-105)
--- NOTE | 2025-03-31 18:35 | PC.NURSE ---
pt educated on how to irrigate his bladder with the saini catheter using sodium chloride flushes. pt demonstrated teaching back to this rn. pt verbalized understanding
[2025-03-31] MEDS: SENNA/DOCUSATE SODIUM TABLET 1 TAB PO (20:26)
[2025-03-31 20:57] LABS: Glucose Point of Care 146 mg/dl (65-105)
[2025-03-31 21:54] VITALS: BP 123/57; PULSE 68; RESP 16; TEMP 36.5; O2SAT 99
[2025-04-01] MEDS: LACTATED RINGERS 1,000 ML 100 ML IV CONT (05:13)
[2025-04-01] MEDS: LEVOTHYROXINE SODIUM 100 MCG TABLET PO (05:14)
[2025-04-01] MEDS: CIPROFLOXACIN 400 MG/D5W 200ML 200 ML 200 MG IVPB (05:14)
[2025-04-01 05:46] LABS: Basophils Percent Auto 0.3 % (0.2-1.2); Eosinophils Absolute Auto 0.1 K/mm3 (0-0.3); Eosinophils Percent Auto 2.9 % (0-4.4); Hemoglobin 7.9 g/dL (14.0-18.0); Immature Granulocyte Absolute 0.01 K/mm3 (0.00-0.031); Immature Granulocyte Percent A 0.3 % (0-0.5); Lymphocytes Absolute Auto 1.26 K/mm3 (0.9-3.2); Lymphocytes Percent Auto 37.2 % (18.3-44.2); Mean Corpuscular HGB Conc 32.9 g/dl (32-36); Mean Corpuscular Hemoglobin 37.4 pg (26-34); Mean Corpuscular Volume 113.7 fl (80-100); Mean Platelet Volume 9.9 fl (7.4-10.4); Monocytes Absolute Auto 0.3 K/mm3 (0.1-0.6); Monocytes Percent Auto 9.4 % (2.6-8.5); Neutrophils Absolute Auto 1.7 K/mm3 (1.3-6.7); Neutrophils Percent Auto 49.9 % (45.5-73.1); Platelet Count Result 177 k/mm3 (150-375); Red Blood Count 2.11 M/mm3 (4.6-6.20); Red Cell Distribution Width 14.1 % (11.5-14.5); White Blood Count 3.4 K/mm3 (4.5-10.0)
[2025-04-01 06:19] LABS: Alanine Aminotransferase 14 U/L (6-50); Albumin Level 3.4 g/dL (3.5-5.1); Alkaline Phosphatase 53 U/L (38-126); Anion Gap 6 mmol/L (4-12); Aspartate Amino Transferase 19 U/L (17-59); Bilirubin,Total 0.5 mg/dL (0.2-1.3); Blood Urea Nitrogen 21 mg/dL (9-20); Calcium 8.9 mg/dL (8.4-10.2); Carbon Dioxide 29 mmol/L (22-30); Chloride 103 mmol/L (98-107); Estimated CRCL calculation 36 ml/min; Estimated Glomerular Filt Rate 51; Glucose 126 mg/dL (65-110); Magnesium 1.7 mg/dL (1.6-2.3); Potassium 4.8 mmol/L (3.4-5.0); Sodium 138 mmol/L (137-145); Total Protein 6.3 g/dL (6.3-8.2)
[2025-04-01 06:21] LABS: Macrocytosis 2+ (NORMAL); Platelet Estimate Adequate (Adequate); Schistocytes None Seen
[2025-04-01 07:00] VITALS: BP 132/60; PULSE 66; RESP 18; TEMP 36.7; O2SAT 99
[2025-04-01 08:19] LABS: Glucose Point of Care 121 mg/dl (65-105)
[2025-04-01] MEDS: LIDOCAINE 5% PATCH 1 PATCH TRANSDERM (08:50)
[2025-04-01 08:51] VITALS: PULSE 84
[2025-04-01] MEDS: PANTOPRAZOLE SOD SESQUIHYDRATE 20 MG TAB PO (08:51)
[2025-04-01] MEDS: carvediloL 3.125 MG TABLET PO (08:51)
[2025-04-01] MEDS: LINEZOLID 600 MG TABLET PO (08:51)
[2025-04-01] MEDS: SACUBITRIL/VALSARTAN 24-26 MG TABLET 1 TAB PO (08:51)
[2025-04-01] MEDS: RANOLAZINE 500 MG TAB.ER.12H PO (08:51)
[2025-04-01] MEDS: OMEGA 3 POLYUNSAT FATTY ACIDS 1 GM CAP PO (08:51)
[2025-04-01] MEDS: EMPAGLIFLOZIN 10 MG TABLET PO (08:51)
[2025-04-01] MEDS: FERROUS SULFATE 325 MG TABLET DR BY MOUTH (08:51)
[2025-04-01] MEDS: DOCUSATE SODIUM 100 MG CAPSULE PO (08:51)
[2025-04-01] MEDS: MULTIVITAMINS THERAPEUTIC TAB (*BKC) 1 TABLET PO (08:51)
--- NOTE | 2025-04-01 10:19 | PM.DS ---
DS: Admitting Diagnosis Discharge Date 04/01 Admitting Diagnosis hematuria DS: Discharge Diagnosis Discharge Diagnosis (1) Clot hematuria: Code(s): R31.0 - Gross hematuria Status: Acute (2) Acute on chronic kidney failure: Code(s): N17.9 - Acute kidney failure, unspecified; N18.9 - Chronic kidney disease, unspecified Status: Acute (3) Type 2 diabetes mellitus with hyperglycemia: Qualifiers: Diabetes mellitus buttermaker continuous churn insulin use: without intermediate use Qualified Code(s): E11.65 - Type 2 diabetes mellitus with hyperglycemia Code(s): E11.65 - Type 2 diabetes mellitus with hyperglycemia Status: Acute (4) Iron deficiency anemia: Code(s): D50.9 - Iron deficiency anemia, unspecified Status: Acute (5) Hypothyroidism (acquired): Code(s): E03.9 - Hypothyroidism, unspecified Status: Acute (6) Acute UTI: Code(s): N39.0 - Urinary tract infection, site not specified Status: Acute Plan rt knee sharp pain- will order xray to ensure nothing acute going on lidocaine patch toradol prn will add pt/ot as pt has to walk up 5 flights of stairs at home DS: Summary Hospital Course Hospital Course: # gross hematuria -Hx neurogenic bladder with chronic indwelling Webber catheter -Recent cystoscopy with hematoma requiring fulguration -[facility] stopped draining[facility] mL grossly bloody hematuria quickly drained -CBI started, now nearly clear -Mild KARYNA on CKD noted Urology consulted underwent cystoscopy with clot evacuation and fulguration 03/28/2025 -Continue antibiotics ciprofloxacin. Recent urine culture with Enterococcus which was vancomycin intermediate ampicillin resistant and Pseudomonas. Follow urine culture cipro dose adjusted and on linezolid now urology notes reviewed: urine is clear after retrieval of the small clot. No other clots noted. Will continue CBI at a slow rate today in weaned to off in morning. Will see what his H&H shows in the morning also. Will keep NPO after midnight in case something needs to be addressed tomorrow. # KARYNA -Likely post-obstructive and should improve with bladder evacuation -Cr 1.54, BUN 22, eGFR 44, eCrCl 30 upon ER arrival Creatinine improving # t2dm -Elevated glucose on admit -Continue Lantus -ACHS fingerstick glucose with SSI -Recent A1c 7.2 a few months ago # UTI pseudomonasa, enterococcus in ua cipro 400 mg q8 IV, linezolid 600 mg q12 will send home with Cipro 750 mg bid for 5 5 more doses- next tonight 04/01 and linezolid -6 more doses - next one 04/01 pm. Discussed with pharmacy- pt needs to hold on with iron until cipro is completed Status at Discharge Functional status at discharge: independent ambulation Overall status at discharge: patient is progressing back to baseline Time Spent with Patient Time attestation: Total time spent providing and/or coordinating discharge services: Time spent: Greater than 30 minutes Exam Narrative: GENERAL: Well-appearing, well-nourished, and in no acute distress. HEAD: Normocephalic, atraumatic. ENT:? Mucous membranes moist. CHEST: Clear to auscultation.? No respiratory distress. HEART: Regular rate and rhythm. ? Normal peripheral pulses. ABDOMEN: Soft, nontender, nondistended. Webber catheter in place with CBI EXTREMITIES: Normal range of motion. No peripheral edema. SKIN: Warm dry normal color NEURO: Alert and oriented x3. PSYCH: Normal mood and affect Const: General: comfortable DS: Data Data Completed and Pending Labs on day of discharge: Labs from last 24 hours 04/01/25 04/01/25 03/31/25 08:16 05:17 20:54 WBC 3.4 L RBC 2.11 L Hgb 7.9 L Hct 24.0 L MCV 113.7 H MCH 37.4 H MCHC 32.9 RDW 14.1 Plt Count 177 MPV 9.9 Immature Gran % (Auto) 0.3 Neut % (Auto) 49.9 Lymph % (Auto) 37.2 [place] % (Auto) 9.4 H Eos % (Auto) 2.9 Baso % (Auto) 0.3 Lymph # (Auto) 1.26 [place] # (Auto) 0.3 Eos # (Auto) 0.1 Baso # (Auto) 0.0 Abs Immat Gran (auto) 0.01 Absolute Neuts (auto) 1.7 Absolute Nucleated RBC 0.000 Band Neutrophils % Not Reportable Nucleated RBC % 0.0 Platelet Estimate Adequate Macrocytosis 2+ Schistocytes None seen Sodium 138 Potassium 4.8 Chloride 103 Carbon Dioxide 29 Anion Gap 6 BUN 21 H Creatinine 1.34 H Estim Creat Clear Calc 36 Estimated GFR 51 L Glucose 126 H POC Capillary Glucose 121 H 146 H Calcium 8.9 Magnesium 1.7 Total Bilirubin 0.5 AST 19 ALT 14 Alkaline Phosphatase 53 Total Protein 6.3 Albumin 3.4 L 03/31/25 17:25 WBC RBC Hgb Hct MCV MCH MCHC RDW Plt Count MPV Immature Gran % (Auto) Neut % (Auto) Lymph % (Auto) [place] % (Auto) Eos % (Auto) Baso % (Auto) Lymph # (Auto) [place] # (Auto) Eos # (Auto) Baso # (Auto) Abs Immat Gran (auto) Absolute Neuts (auto) Absolute Nucleated RBC Band Neutrophils % Nucleated RBC % Platelet Estimate Macrocytosis Schistocytes Sodium Potassium Chloride Carbon Dioxide Anion Gap BUN Creatinine Estim Creat Clear Calc Estimated GFR Glucose POC Capillary Glucose 330 H Calcium Magnesium Total Bilirubin AST ALT Alkaline Phosphatase Total Protein Albumin Discharge Plan Discharge Attending physician on discharge: Raquel Song Consulting providers: Jaleel Dooley Discharging Clinician: Elizabeth Salcido Patient Disposition: Home Activity: february shower Diet: heart healthy Discharge Instructions: you were admitted for hematuria. You had cystocope with clot evacuation and urologist thought you were stable for discharge. Please f/u with urology as instructed. Follow proper Webber care instructions. WE were treating you for UTI with two different antibiotcs. Pleas note that treatment is not completed and you will have to take few more doses to complete it. Take Cipro 750 mg twice a day for 5 more doses- next tonight / and linezolid -6 more doses - next one 6/9 pm. VERY IMPORTANT: please don't take your iron until cipro is completed. Patient Instructions: Antibiotic Form, Heart Failure (DC) Patient Language: Marshallese Stand Alone Forms: General Discharge Information Follow-up/Referrals: Jay Jay Reynoso MD [Primary Care Provider] - 2 Weeks Jaleel Dooley MD [Physician] - 2 Weeks Discharge Medications: New linezolid 600 mg Tablet 600 mg PO Q12HR Qty: 6 0RF Rx Instructions: take next done 04/01 9 pm, and continue for a total of 6 more doses to complete the treatment ciprofloxacin HCl 750 mg tablet 750 mg PO Q12H Qty: 5 0RF Rx Instructions: take next dose tonight -04/01- total 5 more doses to complete the treatment. Continued aspirin [Adult Low Dose Aspirin] 81 mg tablet,delayed release (DR/EC) 81 mg PO HS omega-3 fatty acids [Super Jal-3] 1,000 mg capsule 1,000 mg PO DAILY Entresto 24-26 mg tablet 1 tablet PO BID Qty: 30 0RF (DME) FreeStyle Drea 2 [place] Misc See Rx Instructions .Route Qty: 1 0RF Rx Instructions: As directed isosorbide mononitrate 60 mg tablet extended release 24 hr 60 mg PO BID Qty: 180 3RF ranolazine 500 mg tablet extended release 12 hr 500 mg PO BID carvedilol [Coreg] 3.125 mg Tablet 3.125 mg PO DAILY Patient Comments: MD told to stop but reduced it to daily as felt it was too much to stop Rx Instructions: must administer with a meal/food insulin glargine [Lantus Solostar U-100 Insulin] 100 unit/mL (3 mL) insulin pen 12 unit subcut QPM coenzyme Q10 [Co Q-10] 100 mg capsule 100 mg PO DAILY (DME) OneTouch Verio test strips Strip See Rx Instructions .ROUTE .MEDSUPPLY Qty: 200 3RF Rx Instructions: Use to test blood sugar bid, daily and as directed Trijardy XR 5-2.5-1,000 mg tablet, IR - ER, biphasic 24hr 2 tablet PO QAM Qty: 180 4RF nitroglycerin 0.4 mg tablet, sublingual 0.4 mg SUBLINGUAL Q5M PRN (Reason: chest pain) Qty: 25 2RF Patient Comments: PRN (DME) FreeStyle Drea 2 Sensor Kit See Rx Instructions .Route Qty: 13 1RF Rx Instructions: As directed levothyroxine 100 mcg tablet 100 mcg PO DAILY Qty: 90 1RF pantoprazole 20 mg tablet,delayed release (DR/EC) 20 mg PO QAM 90 Days Qty: 90 3RF Held multivitamin [Daily Multi-Vitamin] Tablet 1 tablet PO DAILY Hold Instructions: Resume on 04/04/25. resume once done with cipro ferrous sulfate [Feosol] 325 mg (65 mg iron) tablet 325 mg PO TID Hold Instructions: Resume on 04/04/25. resume once done with cipro Patient Comments: Supposed to be TID but takes 1 in AM and that 2 PM Discontinued ciprofloxacin HCl [Cipro] 500 mg tablet 500 mg PO Q12H Qty: 14 0RF ciprofloxacin HCl 500 mg tablet 500 mg PO Q12H Qty: 14 0RF Date of admission: 03/28/25 02:58 Primary Care Provider: Jay Jay Reynoso Admitting Provider: Jose Zapata Attending physician on admission: Jose Zapata Condition: Stable Quality VTE Prophylaxis VTE prophylaxis: mechanical ordered Hospitalist MIPS Heart Failure (Exclusion) Patient has history of Heart Transplant or Left Ventricular Assistive Device?: No IF YES, STOP HERE Heart Failure (Qualifier) Patient has current or prior documentation of LVEF less than or equal to 40%, or mod/servere depressed LVSF?: No IF NO, STOP HERE
--- NOTE | 2025-04-01 10:49 | P.PNUR_ITS ---
Progress Note: A&P Assessment and Plan (1) Gross hematuria: Code(s): R31.0 - Gross hematuria Status: Acute Assessment and Plan: Urine remains clear. Patient can be discharged home from urology standpoint. He is to be set up for prostate artery embolization. Subjective Subjective Date/Time Seen: 04/01/25 10:49 Principal diagnosis: Hematuria Interval history: Has been doing well. Urine remains clear at this point time will be discharged home from urology standpoint Review of Systems Review of Systems: All systems reviewed & are unremarkable except as noted in HPI and below Exam Const: General: cooperative and comfortable Resp: Effort & Inspection: normal respiratory effort Cardio: Rate: regular rate Rhythm: regular rhythm Urinary Catheter: Urinary Catheter: patent and draining and urine clear Objective Data Vital Signs Vital Signs: Vital Signs - 24 hr 03/31/25 21:54 04/01/25 07:00 04/01/25 08:00 Temperature 36.5 C 36.7 C Pulse Rate 68 66 Respiratory Rate 16 18 Blood Pressure 123/57 L 132/60 Pulse Oximetry 99 99 Oxygen Delivery Room Air 04/01/25 08:51 04/01/25 09:24 Temperature Pulse Rate 84 Respiratory Rate Blood Pressure Pulse Oximetry Oxygen Delivery Room Air Intake/Output Intake/Output: Intake & Output 03/29/25 03/30/25 03/31/25 04/01/25 23:59 23:59 23:59 23:59 Intake Total 5290 4240 5840 1440 Output Total 350 2750 2900 1300 Balance 4940 1490 2940 140 Meds/Results Medications: Active Medications Generic Name Dose Route Start Last Admin Trade Name Louieq PRN Reason Stop Dose Admin Acetaminophen 650 mg 03/28/25 02:58 03/31/25 08:49 Acetaminophen 325 Mg Tablet PO 650 mg Q4H PRN Administration Mild Pain (1-3) or Fever Carvedilol 3.125 mg 03/29/25 09:00 04/01/25 08:51 Carvedilol 3.125 Mg Tablet PO 3.125 mg DAILY TROY Administration Dextrose 12.5 gm 03/28/25 03:53 Dextrose 50% 25 Gm/50 Ml Syringe IV PUSH PRN PRN Hypoglycemia Protocol Docusate Sodium 100 mg 03/29/25 21:00 04/01/25 08:51 Docusate Sodium 100 Mg Capsule PO 100 mg Q12HR TROY Administration Empagliflozin 10 mg 03/28/25 09:00 04/01/25 08:51 Empagliflozin 10 Mg Tablet PO 10 mg DAILY TROY Administration Fentanyl Citrate 25 mcg 03/28/25 10:08 Fentanyl Citrate Inj (*Crx) 100 Mcg/2 Ml Vial IV PUSH Q2M PRN Pain Ferrous Sulfate 325 mg 03/28/25 17:00 04/01/25 08:51 Ferrous Sulfate [address] BY MOUTH 325 mg TID TROY Administration Fish Oil 1 gm 03/29/25 09:00 04/01/25 08:51 [place] 3 Polyunsat Fatty Acids 1 Gm Cap PO 1 gm DAILY TROY Administration Glucagon 1 mg 03/28/25 03:53 Glucagon For Inj 1 Mg Vial IM PRN PRN Hypoglycemia Protocol Glucose 15 gm 03/28/25 03:53 Glucose Oral Gel 15 Gm Of Glucse In 37.5 Gm Tube PO PRN PRN Hypoglycemia Protocol Lactated Ringer's 1,000 mls @ 100 mls/hr 03/28/25 03:00 04/01/25 05:13 Lr - Lactated Ringers Iv IV CONT 100 mls/hr .Q10H TROY Administration Dextrose 1,000 mls @ 100 mls/hr 03/28/25 03:53 Dextrose 5% 1,000 Ml IVPB PRN PRN Hypoglycemia Protocol Ciprofloxacin/Dextrose 200 mls @ 200 mls/hr 03/28/25 22:00 04/01/25 06:14 Cipro 400 Mg/D5w 200 Ml IVPB Infused Q8HR TROY Infusion Insulin Aspart 2 - 5 units 03/28/25 08:00 04/01/25 08:55 Insulin Aspart (*Bkc) 100 Units/Ml SUB-Q Not Given TIDWM [facility] Protocol Insulin Glargine 8 units 03/28/25 18:00 03/31/25 17:27 Insulin Glargine (*Bkc) 100 Units/Ml SUB-Q 8 units QPM TROY Administration Ketorolac Tromethamine 10 mg 03/31/25 12:02 03/31/25 13:06 Ketorolac 10 Mg Tablet PO 10 mg Q6H PRN Administration Pain Rated 4-6 Levothyroxine Sodium 100 mcg 03/29/25 06:30 04/01/25 05:14 Levothyroxine Sodium 100 Mcg Tablet PO 100 mcg DAILY@0630 TROY Administration Lidocaine 1 patch 04/01/25 09:00 04/01/25 08:50 Lidocaine 5% Patch TRANSDERM 1 patch DAILY TROY Administration Linezolid 600 mg 03/28/25 17:00 04/01/25 08:51 Linezolid 600 Mg Tablet PO 04/04/25 09:01 600 mg Q12HR TROY Administration Multivitamins Therapeutic 1 tablet 03/29/25 09:00 04/01/25 08:51 Multivitamins Therapeutic Tab (*Bkc) PO 1 tablet DAILY TROY Administration Nitroglycerin 0.4 mg 03/28/25 16:08 Nitroglycerin Sl 0.4 Mg Tablet SUBLINGUAL Q5M PRN chest pain Ondansetron HCl 4 mg 03/28/25 02:58 Ondansetron Inj 4 Mg/2 Ml Vial IV PUSH Q4H PRN Nausea Pantoprazole Sodium 20 mg 03/29/25 09:00 04/01/25 08:51 Pantoprazole Sod Sesquihydrate 20 Mg Tab PO 20 mg QAM TROY Administration Polyethylene Glycol 17 gm 03/29/25 15:15 03/31/25 08:48 Polyethylene Glycol 3350 17 Gm Powd.Pack PO 17 gm QAM PRN Administration Constipation Ranolazine 500 mg 03/28/25 21:00 04/01/25 08:51 Ranolazine 500 Mg Tab.Er.12h PO 500 mg Q12HR TROY Administration Sacubitril/Valsartan 1 tab 03/28/25 21:00 04/01/25 08:51 Sacubitril/Valsartan 24-26 Mg Tablet PO 1 tab Q12HR TROY Administration Senna/Docusate Sodium 1 tab 03/30/25 13:30 03/31/25 20:26 Senna/Docusate Sodium Tablet PO 1 tab HS TROY Administration Radiology Results: ITS Impressions Abdomen/Pelvis CT 03/28/25 04:49 Impression: Very large hematoma/blood clot in the urinary bladder measuring 10.6 x 7.9 cm. Probable markedly enlarged prostate gland indenting into the bladder base. Small nonobstructing renal stones, as above. 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 Moderate joint effusion. Labs Labs: Laboratory Results - last 24 hr 03/31/25 03/31/2525 17:25 20:54 05:17 WBC 3.4 L RBC 2.11 L Hgb 7.9 L Hct 24.0 L MCV 113.7 H MCH 37.4 H MCHC 32.9 RDW 14.1 Plt Count 177 MPV 9.9 Immature Gran % (Auto) 0.3 Neut % (Auto) 49.9 Lymph % (Auto) 37.2 [place] % (Auto) 9.4 H Eos % (Auto) 2.9 Baso % (Auto) 0.3 Lymph # (Auto) 1.26 [place] # (Auto) 0.3 Eos # (Auto) 0.1 Baso # (Auto) 0.0 Abs Immat Gran (auto) 0.01 Absolute Neuts (auto) 1.7 Absolute Nucleated RBC 0.000 Band Neutrophils % Not Reportable Nucleated RBC % 0.0 Platelet Estimate Adequate Macrocytosis 2+ Schistocytes None seen Sodium 138 Potassium 4.8 Chloride 103 Carbon Dioxide 29 Anion Gap 6 BUN 21 H Creatinine 1.34 H Estim Creat Clear Calc 36 Estimated GFR 51 L Glucose 126 H POC Capillary Glucose 330 H 146 H Calcium 8.9 Magnesium 1.7 Total Bilirubin 0.5 AST 19 ALT 14 Alkaline Phosphatase 53 Total Protein 6.3 Albumin 3.4 L 04/01/25 08:16 WBC RBC Hgb Hct MCV MCH MCHC RDW Plt Count MPV Immature Gran % (Auto) Neut % (Auto) Lymph % (Auto) [place] % (Auto) Eos % (Auto) Baso % (Auto) Lymph # (Auto) [place] # (Auto) Eos # (Auto) Baso # (Auto) Abs Immat Gran (auto) Absolute Neuts (auto) Absolute Nucleated RBC Band Neutrophils % Nucleated RBC % Platelet Estimate Macrocytosis Schistocytes Sodium Potassium Chloride Carbon Dioxide Anion Gap BUN Creatinine Estim Creat Clear Calc Estimated GFR Glucose POC Capillary Glucose 121 H Calcium Magnesium Total Bilirubin AST ALT Alkaline Phosphatase Total Protein Albumin
[2025-04-01 11:41] LABS: Glucose Point of Care 240 mg/dl (65-105)
[2025-04-01] MEDS: INSULIN ASPART (*BKC) 100 UNITS/ML SUB-Q (11:46)
== END 2025-04-01 13:35 | disposition home or self-care (01) | DRG 690 ==
LOC: ANHED 03-28 03:08 → ANH3MED 03-28 03:40
PROVIDERS: Nurse Practitioner; Urology; Admitting Provider General Practice; Emergency Provider Student in an Organized Health Care Education/Training Program; PCP Family Medicine; Visit Provider Nurse Practitioner
PROC: 0TCB8ZZ Extirpation of Matter from Bladder, Via Natural or Artificial Opening Endoscopic (ICD-10-PCS; CPT 52001; principal; 2025-03-28 10:30)
DX: N39.0 Urinary tract infection, site not specified (principal); N17.9 Acute kidney failure, unspecified; R31.0 Gross hematuria; B96.5 Pseudomonas (aeruginosa) (mallei) (pseudomallei) as the cause of diseases classified elsewhere; B95.2 Enterococcus as the cause of diseases classified elsewhere; D50.9 Iron deficiency anemia, unspecified; D46.9 Myelodysplastic syndrome, unspecified; E03.9 Hypothyroidism, unspecified; E53.8 Deficiency of other specified B group vitamins; E11.65 Type 2 diabetes mellitus with hyperglycemia; E11.42 Type 2 diabetes mellitus with diabetic polyneuropathy; I25.10 Atherosclerotic heart disease of native coronary artery without angina pectoris; K21.9 Gastro-esophageal reflux disease without esophagitis; M19.90 Unspecified osteoarthritis, unspecified site; N18.9 Chronic kidney disease, unspecified; N31.2 Flaccid neuropathic bladder, not elsewhere classified; T83.098A Other mechanical complication of other urinary catheter, initial encounter; Z95.1 Presence of aortocoronary bypass graft; Z79.4 Long term (current) use of insulin; Z86.73 Personal history of transient ischemic attack (TIA), and cerebral infarction without residual deficits; Z85.828 Personal history of other malignant neoplasm of skin; Z96.642 Presence of left artificial hip joint; Z79.84 Long term (current) use of oral hypoglycemic drugs; Z79.82 Long term (current) use of aspirin; Z88.0 Allergy status to penicillin
CPT/HCPCS: 36415; 73560; 74177; 80053; 81001; 82948; 83735; 85025; 85610; 85730; 87086; 93005; 96374; 96375; 97161; 97165; 99285; A9270; J0744; J1100; J1815; J2270; J2405; J2704; J3010; J7120; Q9967

== ENCOUNTER 2025-04-06 00:01 | Observation (INO) | payer MEDICARE, SELFPAY ==
[2025-04-06] VITALS (11 sets, daily range): BP systolic 112–131; BP diastolic 51–69; PULSE 64–87; RESP 15–24; TEMP 36.1–36.6; O2SAT 98–100; BMI 23.7
--- NOTE | ~2025-04-06 | XR_ITS ---
XR chest 1V portable 04/06/2025 00:32 Indication: Chest pain Procedure: AP portable chest Comparison: 10/13/2022 Findings: Status post median sternotomy for CABG. Heart size normal. No focal air space disease, pulm onary edema, pleural effusion or suspected pneumothorax. Impression: 1: No acute cardiopulmonary disease. Reviewed, dictated and finalized at location B. Impression: 1: No acute cardiopulmonary disease.
--- OUTSIDE RECORDS SUMMARY | 2025-04-06 00:04 | XMS_ITS | Clinical Summary ---
Author Organization [facility] [address] [facility] Address [address] [place] [address] Care Team Providers Care Respiratory Services Manager Name Role Phone Jay Jay Reynoso MD Unavailable [phone] Jay Jay Reynoso MD Primary Care Provider [phone] Allergies Active Allergy Reactions Criticality Noted Date [...] (100 mg total) by mouth daily Active [id number] x-Hwturjuv-hqs al 27 mg iron-1.13 mg-581.92 mg capsule [...] 023 Active aspirin 81 mg enteric coated tabletIndicati [...] (06/22/2019): Added automatically from request for surgery [id number] Chest pain 06/22/2019 Overview (06/22/2019): Added automatically from request for surgery [id number] Encounters Date Type Department Care Team Description 04/05/2025 Telephone [facility] Medical [facility] Cardiology [address] [place] [address] Riccardo Chang MD Leg Swelling; Foot Swelling 01/09/2025 2:00 PM CDT Office Visit [facility] Cardiology [address] [place] [address] Riccardo Chang MD 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 Gender Identity Not on file Sexual [...] history exists Influenza Vaccine (Season Ended) 2025 09/17/20 22, 09/25/2018 Lipid Panel 01/09/2026 01/09/2025, 07/24, 09/29/2022, Additional history exists Medical Devices Implanted Type Area Plodding Operator Device Identifier Shelf Expiration Date Model / Serial / Lot iLinc [id number] Device Closure Angio-Seal Vip Bondek-Plus Polyglyd L70 Cm Od6 Fr Odsec.035 In Vascular - [id number] Implanted:Qty: 1 on 07/19/2019 by Riccardo Chang MD at [facility] [employer] 01/22/2020 [id number] / / [employer] Device Closure Vascade Od5 Fr Femoral Artery [id number] - [id number] Implanted:Qty: 1 on 11/04/2022 by Riccardo Chang MD at [facility] [id number] / / Giron [employer] Nephew[employer]Richco/ Ortho R3 56mm 3 Hole Hip Standard Shell Acetabular [id number] - [id number] Implanted:Qty: 1 on 08/02/2023 by Galileo Klein MD at [facility] Left: Hip [employer]hew/Richco/Or tho [id number] 09/16/2031 [id number] / / [id number] G[employer]hew[employer]Rich[employer]/ Ortho R3 56mm 40mm 20d Liner Acetabular Xlpe [id number] - [id number] Implanted:Qty: 1 on 08/02/2023 by Galileo Klein MD at [facility] Left: Hip [employer]Rich[employer]/Or tho [id number] 05/01/2033 [id number] / / [id number] [employer]hew[employer]Rich[employer]/ Ortho Polarstem Cementless Hip 6 Standard Stem Femoral Titanium Mcintosh [id number] - [id number] Implanted:Qty: 1 on 08/02/2023 by Galileo Klein MD at [facility] Left: Hip [employer]hew[employer]Richco/Or tho [id number] 04/15/2029 [id number] / / [id number] G[employer]hew[employer]Richco/ Ortho 40mm Modular Hip Head Femoral Oxinium [id number] - [id number] Implanted:Qty: 1 on 08/02/2023 by Galileo Klein MD at [facility] Left: Hip [employer]hew/Richco/Or tho [id number] 04/29/2033 [id number] / / [id number] G[employer]hew[employer]Richco/ Ortho Modular Neck Hip +0mm 12/14 Taper Sleeve Femoral Titanium [id number] - [id number] Implanted:Qty: 1 on 08/02/2023 by Galileo Klein MD at [facility] Left: Hip [employer]hew[employer]Richco/Or tho [id number] 04/25/2033 [id number] / / [id number] Procedures Procedure Name Priority Date/Time Associated Diagnosis Comments POCT LIPID PANEL Routine 01/09/2025 1:48 PM CDT 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 [address] [facility] Department [place] [address] from Last 3 Months or Most Recently Relevant to Health Maintenance Insurance [facility] MEDICARE ADVANTAGE Advance Directives For more information, please contact: [phone] * Full Code (Latest Code Status on File) Date Activated Date Inactivated Comments 08/02/2023 9:03 AM 08/03/2023 8:37 PM Care Teams Respiratory Services Manager Relationship Specialty Start Date End Date Jay Jay Reynoso MD PCP - General Family Medicine 09/08/20 Jay Jay Reynoso MD Family Medicine 11/29/19
--- OUTSIDE RECORDS SUMMARY | 2025-04-06 00:04 | XMS_ITS | Encounter Summary ---
Author Organization [facility] Address [address] [place] [address] Care Team Providers Care Manager Intern Name Role Phone Jay Jay Reynoso MD Unavailable [phone] Jay Jay Reynoso MD Primary Care Provider [phone] Reason for Visit * Reason Onset Date Comments Leg Swelling 04/05/2025 Foot Swelling 04/05/2025 Encounter Details Date Type Department Care Team (Late st Contact Info) Description 04/05/2025 Telephone [facility] Cardiology [address] [place] [address] Riccardo Chang MD [address] [facility] [address] [facility] [address] [place] [address] Leg Swelling; Foot Swelling Social History Tobacco Use Types Packs/Day Years [...] 08/03/2023 How often do you attend chur or amish services? 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 Now complaining of progressively worsening swelling in lower extremities. Pt had appt w/ QUALITY COMPLIANCE COORDINATOR at PCP's office today due to not urinating as much as they thought patient should be. They made patient appointment for patient with urologist on Tuesday. He is urinating slightly from the bag but not as much as she thinks he should by now but was contacting us regarding his legs. Informed that she needs to contact urologist office as even if we gave him something he would need to be able to urinate. I advised him to elevate his legs as much as he could with the catheter,wear compression stockings, and try to contact urologist in the mean time. She verbalized understanding. NICK Chang * Telephone Encounter - Giuliana Zavala - 04/05/2025 2:24 PM CDT Ingris (pts spouse) states that patient has been experiencing increasing lower extremity swelling for the past week or so. States that both legs are swollen from the knee down to the foot. States thatthey look like they are about to pop. Pt has been in and out of the ED due to bladder issues. Please advise. Thank you. Contact [phone] documented in this encounter Plan of Treatment Not on file documented as of this encounter Visit Diagnoses Not on filedocumented in this encounter Care Teams Manager Intern Relationship Specialty Start Date End Date Jay Jay Reynoso MD PCP - General Family Medicine 09/08/20 Jay Jay Reynoso MD Family Medicine 11/29/19 documented as of this encounter
--- OUTSIDE RECORDS SUMMARY | 2025-04-06 00:04 | XMS_ITS | Encounter Summary ---
Author Organization [employer] Address [address] [place] [address] Care Team Providers Care Gem Expert Name Role Phone Unavailable Primary Care Provider Unavailabl e Encounter Details Date Type Department Care Team (Late st Contact Info) Description 12/14/1999 Outpatient Historical Division [facility] [address] [facility] [address] (Excluded Provider) [place] [address] [facility] [facility] [address] [place] [address] Social History Tobacco Use Types Packs/Day Years Used Date Smoking Tobacco: Never Assessed Sex and Gender Information Value Date Recorded Sex Assigned at Not on file 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
--- OUTSIDE RECORDS SUMMARY | 2025-04-06 00:04 | XMS_ITS | Encounter Summary ---
Author Organization [facility] Address [address] [place] [address] Phone Care Team Providers Care Switching Operator Name Role Phone Diego Nunez MD Primary Care Provider Jay Jay Reynoso MD Unavailable [phone] Rosibel Rodrigues DPT Unavailable [phone] Jay Jay Reynoso MD Primary Care Provider [phone] Encounter Details Date Type Department Care Team (Late st Contact Info) Description 07/16/2020 Telephone [facility] Physical Therapy [address] [address] Fidelia Macias, B.A. 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 Care Teams Switching Operator Relationship Specialty Start Date End Date Diego Nunez MD [address] [facility] [address] [place] [address] PCP - General Internal Medicine 11/29/19 09/07/20 Jay Jay Reynoso MD [address] [facility] [address] [place] [address] PCP - General Family Medicine 09/08/20 Jay Jay Reynoso MD [address] [facility] [address] [place] [address] Family Medicine 11/29/19 Rosibel Rodrigues DPT [address] [facility] [address] [place] [address] Physical Therapist Physical Therapy 06/25/20 09/01/20 documented as of this encounter
--- OUTSIDE RECORDS SUMMARY | 2025-04-06 00:04 | XMS_ITS | Encounter Summary ---
Author Organization [email or web address] Address [address] [place] [address] Care Team Providers Care Private Branch Exchange Operator Name Role Phone Unavailable Primary Care Provider Unavailabl e Encounter Details Date Type Department Care Team (Late st Contact Info) Description 01/26/2000 Outpatient Historical Division of [facility] [address] [facility] [address] [address] (Excluded Provider) [place] [address] [facility] [address] [place] [address] Social History Tobacco Use Types Packs/Day Years Used Date Smoking Tobacco: Never Assessed Sex and Gender Information Value Date Recorded Sex Assigned at Not on file 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
--- OUTSIDE RECORDS SUMMARY | 2025-04-06 00:04 | XMS_ITS | Patient Health Record ---
Author Organization [facility] Address [address] [place] [address] Care Team Providers Care Ranch Manager Name Role Phone Jay Jay Reynoso Primary Care Provider Jay Jay Beck Unavailable [phone] Alka Reynoso MD Unavailable Unavailabl e Allergies [...] Risk Notes Problem Fear of medical treatment (059811601) Fear of injections and transfusions (F40.231) Active confirmed Problem Localized, primary osteoarthritis of the pelvic region and thigh (080292362) Unilateral primary osteoarthritis, left hip (M16.12) Active confirmed Problem Cervical spondylosis without myelopathy (537890531) Spondylosis without myelopathy or radiculopathy, cervical region (M47.812) Active confirmed Plan Of Treatment Pending Test Test Name Order Date X ray : Hip, left 05/02/2023 Insurance Providers Payer Name Payer Address Payer Phone Subscriber Number Group Number Insured Name Patient Relationship to Insured Coverage Start Date Coverage End Date [employer] Medicare Advantage [address] [address] [place] [address] [id number] Kai Stewart Self - patient is the insured Medical (General) History Medical History History ICD Code Arthritis: Yes Congestive Heart Failure: Yes Diabetes, type I: Yes High blood pressure: Yes Surgical History Surgery Date(Month/Year)
--- OUTSIDE RECORDS SUMMARY | 2025-04-06 00:04 | XMS_ITS | Encounter Summary ---
Author Organization [employer] Address 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
--- OUTSIDE RECORDS SUMMARY | 2025-04-06 00:04 | XMS_ITS | Referral Summary ---
Author Organization [facility] [address] [facility] Address [address] [place] [address] Care Team Providers Care Mft Name Role Phone Jay Jay Reynoso MD Unavailable [phone] Jay Jay Reynoso MD Primary Care Provider [phone] Encounters Date Type Department Care Team Description 04/05/2025 Telephone [facility] Medical Group Cardiology [address] [place] [address] Riccardo Chang MD Leg Swelling; Foot Swelling 01/09/2025 2:00 PM CDT Office Visit [facility] Medical 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 Gender Identity Not on file Sexual [...] on file Medical Devices Implanted Type Area Fisher Trawl Line Device Identifier Shelf Expiration Date Model / Serial / Lot Feastie [id number] Device Closure Angio-Seal Vip Bondek-Plus Polyglyd L70 Cm Od6 Fr Odsec.035 In Vascular - [id number] Implanted:Qty: 1 on 07/19/2019 by Riccardo Chang MD at [facility] [employer] 01/22/2020 [id number] / / Cardiva Medical Inc Device Closure Vascade Od5 Fr Femoral Artery [id number] - [id number] Implanted:Qty: 1 on 11/04/2022 by Riccardo Chang MD at [facility] 700-500DX-0 5U / / Giron & Nephew/Richco/ Ortho R3 56mm 3 Hole Hip Standard Shell Acetabular [id number] - [id number] Implanted:Qty: 1 on 08/02/2023 by Galileo Klein MD at [facility] Left: Hip Giron & Nephew/Richco/Or tho [id number] 09/16/2031 [id number] / / [id number] Giron & Nephew/Richco/ Ortho R3 56mm 40mm 20d Liner Acetabular Xlpe [id number] - [id number] Implanted:Qty: 1 on 08/02/2023 by Galileo Klein MD at [facility] Left: Hip Giron & Nephew/Richco/Or tho [id number] 05/01/2033 [id number] / / [id number] Giron & Nephew/Richco/ Ortho Polarstem Cementless Hip 6 Standard Stem Femoral Titanium Mcintosh [id number] - [id number] Implanted:Qty: 1 on 08/02/2023 by Galileo Klein MD at [facility] Left: Hip Giron & Nephew/Richco/Or tho [id number] 04/15/2029 [id number] / / [id number] Giron & Nephew/Richco/ Ortho 40mm Modular Hip Head Femoral Oxinium [id number] - [id number] Implanted:Qty: 1 on 08/02/2023 by Galileo Klein MD at [facility] Left: Hip Giron & Nephew/Richco/Or tho [id number] 04/29/2033 [id number] / / [id number] Giron & Nephew/Richco/ Ortho Modular Neck Hip +0mm 12/14 Taper Sleeve Femoral Titanium [id number] - [id number] Implanted:Qty: 1 on 08/02/2023 by Galileo Klein MD at [facility] Left: Hip Giron & Nephew/Richco/Or tho [id number] 04/25/2033 [id number] / / [id number] Procedures Procedure Name Priority Date/Time Associated Diagnosis Comments POCT LIPID PANEL Routine 01/09/2025 1:48 PM CDT 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 EGFR Routine [...] 2:48 AM CDT 08/03/2023 2:51 AM CDT us David Diaz MD LAB BLOOD ORDERABLES Final Res ult MARI [address] [place] [facility] Department of Laboratories [place], [place] [id number] from Last 3 Months or Most Recently Relevant to Health Maintenance Insurance [facility] MEDICARE ADVANTAGE [facility] MEDICARE ADVANTAGE Advance Directives For more information, please contact: [phone] * Full Code (Latest Code Status on File) Date Activated Date Inactivated Comments 08/02/2023 9:03 AM 08/03/2023 8:37 PM Care Teams Mft Relationship Specialty Start Date End Date Jay Jay Reynoso MD PCP - General Family Medicine 09/08/20 Jay Jay Reynoso MD Family Medicine 11/29/19
--- OUTSIDE RECORDS SUMMARY | 2025-04-06 00:04 | XMS_ITS | Encounter Summary ---
Author Organization [email or web address] Address 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
--- OUTSIDE RECORDS SUMMARY | 2025-04-06 00:04 | XMS_ITS | Clinical Summary ---
Author Organization [facility] Address [address] [place] [address] Care Team Providers Care Stable Attendant Name Role Phone Jay Jay Reynoso MD Primary Care Provider [phone] Source Comments [facility] Affiliates and Associated Physician Practices is amultiple site organization consisting of ambulatory clinics and hospital sitesin [place], [place], [place] and [place]. This disclosure is being madepursuant to the Care Everywhere program and may not contain all information available regarding this patient. Last updated 18.[facility] Allergies Active Allergy Reactions Criticality Noted Date [...] on file Legal Sex Male 6:18 AM MANAGER GROUP Gender Identity Male 04/11/2021 8:06 AM CDT Sexual Orientation Not on file Last Filed Vital Signs Vital Sign Reading Time Taken Comments Blood Pressure 107/71 12/22/2022 2:45 PM MANAGER GROUP Pulse 72 12/22/2022 2:45 PM MANAGER GROUP Temperature 36.8 C (98.2 F) 12/22/2022 2:45 PM MANAGER GROUP Respiratory Rate 16 12/22/2022 2:45 PM MANAGER GROUP Oxygen Saturation 98% 12/22/2022 2:45 PM MANAGER GROUP Inhaled Oxygen Concentration - - Weight 68 kg (150 lb) 12/22/2022 10:19 AM MANAGER GROUP Height 165.1 cm (5' 5) 12/22/2022 9:57 AM MANAGER GROUP Body Mass Index 24.96 12/22/2022 9:57 AM MANAGER GROUP Plan of Treatment Health Maintenance Due Date [...] to complete this topic Insurance [address] [place], [place] [id number] [place] [address] MEDICARE [facility] MANAGED MEDICARE ADV SELF PAY NO INSURANCE Member Subscriber Plan / Payer (Ef fective for All Dates) Name:AshleyDarien perez Member ID:Not on file Relation to Subscriber:Not on file Name:DARIEN RAMIREZ Subscriber ID:Not on file (Home) Address: [address] [place] [address] [place] [address] Payer ID:Not on file Group ID:Not on file Type:Self Pay Address: [place], [place] SELF PAY NO INSURANCE Member Subscriber Plan / Payer (Ef fective for All Dates) Name:AshleyDarien Member ID:Not on file Relation to Subscriber:Not on file Name:ASHLEYDARIEN Subscriber ID:Not on file Address: [address] [place] [address] Payer ID:Not on file Group ID:Not on file Type:Self Pay Address: [facility] MANAGED MEDICARE ADV SELF PAY NO INSURANCE Member Subscriber Plan / Payer (Ef fective for All Dates) Name:Darien Ramirez Member ID:Not on file Relation to Subscriber:Not on file Name:DARIEN RAMIREZ Subscriber ID:Not on file Address: [address] [place] [address] Payer ID:Not on file Group ID:Not on file Type:Self Pay Address: [facility] MANAGED MEDICARE ADV SELF PAY NO INSURANCE Member Subscriber Plan / Payer (Ef fective for All Dates) Name:Darien Ramirez Member ID:Not on file Relation to Subscriber:Not on file Name:DARIEN RAMIREZ Subscriber ID:Not on file Address: [address] [place] [address] Payer ID:Not on file Group ID:Not on file Type:Self Pay Address: [facility] MANAGED MEDICARE ADV Care Teams Stable Attendant Relationship Specialty Start Date End Date Jay Jay Reynoso MD [facility] [place] [address] PCP - General 03/29/12
--- OUTSIDE RECORDS SUMMARY | 2025-04-06 00:05 | XMS_ITS | Encounter Summary ---
Author Organization [employer] Address 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
--- OUTSIDE RECORDS SUMMARY | 2025-04-06 00:05 | XMS_ITS | Clinical Summary ---
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
--- OUTSIDE RECORDS SUMMARY | 2025-04-06 00:05 | XMS_ITS ---
Author Organization [facility] Address [address] [facility] [address] [place] [address] Care Team Providers Care Program Professional Name Role Phone Jay Jay Reynoso Primary Care Provider Unavaila Jay Jay King Unavailable [phone] Alka Reynoso MD Unavailable Unavailabl e REASON [...] Provider Diagnosis -[facility] [address] [facility] [address] [place] [address] 12/28/2023 Jay Jay Howard Plan Of Treatment No Information Progress Notes * Gaby RAMIREZOB:1944 (79 yo M)Acc No.[id number]:12/28/2023 Progress Note Patient: Mariel REYES Kai Provider: Mariel Howard MD :1945 A ge:78 Y S ex:Male Date:12/28/2023 Address:[address] [place] [address] [facility], [facility] Pcp:Jay Jay Reynoso Subjective: * Chief Complaints: [...] Electronic signature of Blue Howard MD on 04/06/2025 at 12:04 AM CDT Sign off status: Pending * Provider: Mariel Howard MD Date: 12/28/2023 Generated for Cody uriostegui/Ibrahima/Crystal on: 0 04/06/2025 12:04 AM CDT
--- OUTSIDE RECORDS SUMMARY | 2025-04-06 00:05 | XMS_ITS | Encounter Summary ---
Author Organization [employer] Address [address] [place] [address] Care Team Providers Care Junior Media Buyer Name Role Phone Unavailable Primary Care Provider Unavailabl e Encounter Details Date Type Department Care Team (Late st Contact Info) Description 11/13/1999 Outpatient Historical Division of Neu[facility] [address] [facility] [address] [address] (Excluded Provider) [place] [address] [facility] [address] [place] [address] Social History Tobacco Use Types Packs/Day Years Used Date Smoking Tobacco: Never Assessed Sex and Gender Information Value Date Recorded Sex Assigned at Not on file Legal Sex Male 4:08 AM MANAGER OF IT Gender Identity Not on file Sexual Orientation Not on file documented as of this encounter Plan of Treatment Not on file documented as of this encounter Visit Diagnoses Not on filedocumented in this encounter
--- NOTE | 2025-04-06 00:17 | ECG_ITS ---
Test Date: 2025-04-06 00:19:16 Measurements Intervals [place] Rate: 73 P: 57 TN: 178 QRS: -32 QRSD: 169 T: 64 QT: 438 QTc: 483 Interpretive Statements SINUS RHYTHM RIGHT BUNDLE BRANCH BLOCK CANNOT R/O SEPTAL INFARCT, AGE INDETERMINATE BASELINE ARTIFACT- I, II ,AVR, AVL, AVF, V3-V4 ABNORMAL ECG Compared to ECG 03/28/2025 09:17:57 HEART RATE HAS INCREASED Electronically Signed On 04-06-2025 07:32:01 CDT by Samuel Ortega D.O.
[2025-04-06 00:28] LABS: Basophils Percent Auto 0.6 % (0.2-1.2); Eosinophils Absolute Auto 0.1 K/mm3 (0-0.3); Eosinophils Percent Auto 2.6 % (0-4.4); Hematocrit 21.9 % (42.0-52.0); Hemoglobin 7.3 g/dL (14.0-18.0); Immature Granulocyte Absolute 0.01 K/mm3 (0.00-0.031); Immature Granulocyte Percent A 0.3 % (0-0.5); Lymphocytes Absolute Auto 1.25 K/mm3 (0.9-3.2); Lymphocytes Percent Auto 35.8 % (18.3-44.2); Mean Corpuscular HGB Conc 33.3 g/dl (32-36); Mean Corpuscular Hemoglobin 37.8 pg (26-34); Mean Corpuscular Volume 113.5 fl (80-100); Mean Platelet Volume 9.3 fl (7.4-10.4); Monocytes Absolute Auto 0.2 K/mm3 (0.1-0.6); Monocytes Percent Auto 5.7 % (2.6-8.5); Neutrophils Absolute Auto 1.9 K/mm3 (1.3-6.7); Platelet Count Result 154 k/mm3 (150-375); Red Blood Count 1.93 M/mm3 (4.6-6.20); Red Cell Distribution Width 14.6 % (11.5-14.5); White Blood Count 3.5 K/mm3 (4.5-10.0)
[2025-04-06 00:38] LABS: Alanine Aminotransferase 25 U/L (6-50); Albumin Level 4.2 g/dL (3.5-5.1); Alkaline Phosphatase 41 U/L (38-126); Anion Gap 10 mmol/L (4-12); Aspartate Amino Transferase 35 U/L (17-59); Bilirubin,Total 0.3 mg/dL (0.2-1.3); Blood Urea Nitrogen 35 mg/dL (9-20); Calcium 9.2 mg/dL (8.4-10.2); Carbon Dioxide 23 mmol/L (22-30); Chloride 104 mmol/L (98-107); Estimated CRCL calculation 36 ml/min; Estimated Glomerular Filt Rate 52; Glucose 221 mg/dL (65-110); Lipase 16 U/L (23-300); Potassium 4.8 mmol/L (3.4-5.0); Sodium 137 mmol/L (137-145); Total Protein 7.3 g/dL (6.3-8.2)
[2025-04-06 00:38] LABS: INR 1.1; Prothrombin Time 13.7 Seconds (11.1-14.7)
[2025-04-06 00:39] LABS: Partial Thromboplastin Time 30.5 Seconds (22.3-36.8)
--- OUTSIDE RECORDS SUMMARY | 2025-04-06 00:43 | XMS_ITS | Encounter Summary ---
Author Organization [facility] Healthcare Address [address] [place] [address] Care Team Providers Care Radiology Resident Name Role Phone Jay Jay Reynoso MD Unavailable [phone] Jay Jay Reynoso MD Primary Care Provider [phone] Reason for Visit * Reason Onset Date Comments Leg Swelling 04/05/2025 Foot Swelling 04/05/2025 Encounter Details Date Type Department Care Team (Late st Contact Info) Description 04/05/2025 Telephone [facility] Medical Group Cardiology [address] [place] [address] Riccardo Chang MD [address] [facility] [address] [facility] [address] [place] [address] Leg Swelling; Foot Swelling Social [...] How often do you attend chur or congregational services? 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 Now complaining of progressively worsening swelling in lower extremities. Pt had appt w/ RETORT PRESS OPERATOR at PCP's office today due to not [...] bladder issues. Please advise. Thank you. Contact [phone] documented in this encounter Plan of Treatment Not on file documented as of this encounter Visit Diagnoses Not on filedocumented in this encounter Care Teams Radiology Resident Relationship Specialty Start Date End Date Jay Jay Reynoso MD PCP - General Family Medicine 09/08/20 Jay Jay Reynoso MD Family Medicine 11/29/19 documented as of this encounter
--- OUTSIDE RECORDS SUMMARY | 2025-04-06 00:43 | XMS_ITS | Referral Summary ---
Author Organization [facility] [address] [facility] Address [address] [place] [address] Care Team Providers Care Rubber Thread Spooler Name Role Phone Jay Jay Reynoso MD Unavailable [phone] Jay Jay Reynoso MD Primary Care Provider [phone] Encounters Date Type Department Care Team Description 04/05/2025 Telephone [facility] Medical Group Cardiology [address] [place] [address] Riccardo Chang MD Leg Swelling; Foot Swelling 01/09/2025 2:00 PM CDT Office Visit [facility] Medical [facility] Cardiology [address] [facility] [address] [place] [address] Riccardo Chang MD Coronary artery disease of minto artery of minto heart with stable angina pectoris (Primary Dx); [...] (100 mg total) by mouth daily Active kqepzmam38-jvj c-Sivisuit-xkh al 27 mg iron-1.13 mg-581.92 mg capsule [...] (06/22/2019): Added automatically from request for surgery [id number] Chest pain 06/22/2019 Overview (06/22/2019): Added automatically from request for surgery [id number] Social History Tobacco Use Types Packs/Day Years [...] often do you attend chur ch or jainism services? 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 HOSPICE RN Gender Identity Not on file Sexual Orientation [...] on file Medical Devices Implanted Type Area Hot Pond Operator Device Identifier Shelf Expiration Date Model / Serial / Lot [employer] [id number] Device Closure Angio-Seal Vip Bondek-Plus Polyglyd L70 Cm Od6 Fr Odsec.035 In Vascular - [id number] Implanted:Qty: 1 on 07/19/2019 by Riccardo Chang MD at [facility] [employer] 01/22/2020 [id number] / / Cardiva Medical Inc Device Closure Vascade Od5 Fr Femoral Artery [id number] - [id number] Implanted:Qty: 1 on 11/04/2022 by Riccardo Chang MD at [facility] 700-500DX-0 5U / / Giron & Nephew/Richco/ Ortho R3 56mm 3 Hole Hip Standard Shell Acetabular [id number] - [id number] Implanted:Qty: 1 on 08/02/2023 by Galileo Klein MD at [facility] Left: Hip Giron [employer] Nephew/Richco/Or tho [id number] 09/16/2031 [id number] / / [id number] Giron & Nephew/Richco/ Ortho R3 56mm 40mm 20d Liner Acetabular Xlpe [id number] - [id number] Implanted:Qty: 1 on 08/02/2023 by Galileo Klein MD at [facility] Left: Hip Giron [employer] Nephew/Richco/Or tho [id number] 05/01/2033 [id number] / / [id number] Giron & Nephew/Richco/ Ortho Polarstem Cementless Hip 6 Standard Stem Femoral Titanium Mcintosh [id number] - [id number] Implanted:Qty: 1 on 08/02/2023 by Galileo Klein MD at [facility] Left: Hip Giron [employer] Nephew/Richco/Or tho [id number] 04/15/2029 [id number] / / [id number] Giron & Nephew/Richco/ Ortho 40mm Modular Hip Head Femoral Oxinium [id number] - [id number] Implanted:Qty: 1 on 08/02/2023 by Galileo Klein MD at [facility] Left: Hip Giron [employer] Nephew/Richco/Or tho [id number] 04/29/2033 [id number] / / [id number] Giron & Nephew/Richco/ Ortho Modular Neck Hip +0mm 12/14 Taper Sleeve Femoral Titanium [id number] - [id number] Implanted:Qty: 1 on 08/02/2023 by Galileo Klein MD at [facility] Left: Hip Giron & Nephew/Richco/Or tho [id number] 04/25/2033 [id number] / / [id number] Procedures Procedure Name Priority Date/Time Associated Diagnosis Comments POCT LIPID PANEL Routine 01/09/2025 1:48 PM CDT Coronary artery disease of minto artery of minto heart with stable angina pectoris EGFR Routine [...] Res ult MARI [address] [facility] Laboratories [place], [place] [address] from Last 3 Months or Most Recently Relevant to Health Maintenance Insurance [facility] MEDICARE ADVANTAGE [facility] MEDICARE ADVANTAGE Advance Directives For more information, please contact: [phone] * Full Code (Latest Code Status on File) Date Activated Date Inactivated Comments 08/02/2023 9:03 AM 08/03/2023 8:37 PM Care Teams Rubber Thread Spooler Relationship Specialty Start Date End Date Jay Jay Reynoso MD PCP - General Family Medicine 09/08/20 Jay Jay Reynoso MD Family Medicine 11/29/19
--- OUTSIDE RECORDS SUMMARY | 2025-04-06 00:43 | XMS_ITS | Encounter Summary ---
Author Organization [employer] Address [address] [place] [address] Care Team Providers Care Manager Recruitment Name Role Phone Unavailable Primary Care Provider Unavailabl e Encounter Details Date Type Department Care Team (Late st Contact Info) Description 11/13/1999 Outpatient Historical Division of Neurology [address] [facility] [address] [address] (Excluded Provider) [place] [address] [facility] [address] [place] [address] Social History Tobacco Use Types Packs/Day Years Used Date Smoking Tobacco: Never Assessed Sex and Gender Information Value Date Recorded Sex Assigned at Not on file Legal Sex Male 4: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
--- OUTSIDE RECORDS SUMMARY | 2025-04-06 00:43 | XMS_ITS | Encounter Summary ---
Author Organization [employer] Address 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
--- OUTSIDE RECORDS SUMMARY | 2025-04-06 00:43 | XMS_ITS | Clinical Summary ---
Author Organization [facility] [address] [facility] Address [address] [place] [address] Care Team Providers Care Science Manager Name Role Phone Jay Jay Reynoso MD Unavailable Jay Jay Reynoso MD Primary Care Provider [phone] Allergies Active Allergy Reactions Criticality Noted Date [...] (100 mg total) by mouth daily Active [id number] l-[id number] al 27 mg iron-1.13 mg-581.92 mg capsule [...] (06/22/2019): Added automatically from request for surgery [id number] Chest pain 06/22/2019 Overview (06/22/2019): Added automatically from request for surgery [id number] Encounters Date Type Department Care Team Description 04/05/2025 Telephone [facility] Cardiology [address] [place] [address] Riccardo Chang MD Leg Swelling; Foot Swelling 01/09/2025 2:00 PM CDT Office Visit 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 Never 08/03/2023 Do you belong to any clubs o r organizations such as taoist groups, unions, fraternal or athletic groups, or [...] on file Legal Sex Male 3:30 AM REPEAT CHIEF Gender Identity Not on file Sexual Orientation [...] history exists Medical Devices Implanted Type Area Clinical Pharmacologist Device Identifier Shelf Expiration Date Model / Serial / Lot Energy Micro [id number] Device Closure Angio-Seal Vip Bondek-Plus Polyglyd L70 Cm Od6 Fr Odsec.035 In Vascular - [id number] Implanted:Qty: 1 on 07/19/2019 by Riccardo Chang MD at [facility] [employer] 01/22/2020 [id number] / / [employer] Device Closure Vascade Od5 Fr Femoral Artery [id number] - [id number] Implanted:Qty: 1 on 11/04/2022 by Riccardo Chang MD at [facility] [id number] / / G[employer]hew[employer]Richco/ Ortho R3 56mm 3 Hole Hip Standard Shell Acetabular [id number] - [id number] Implanted:Qty: 1 on 08/02/2023 by Galileo Klein MD at [facility] Left: Hip [employer]Rich[employer]/Or tho [id number] 09/16/2031 [id number] / / [id number] G[employer]/ Ortho R3 56mm 40mm 20d Liner Acetabular Xlpe [id number] - [id number] Implanted:Qty: 1 on 08/02/2023 by Galileo Klein MD at [facility] Left: Hip [employer]/Or tho [id number] 05/01/2033 [id number] / / [id number] [employer]/ Ortho Polarstem Cementless Hip 6 Standard Stem Femoral Titanium Mcintosh [id number] - [id number] Implanted:Qty: 1 on 08/02/2023 by Galileo Klein MD at [facility] Left: Hip [employer]Rich[employer]/Or tho [id number] 04/15/2029 [id number] / / [id number] [employer]/ Ortho 40mm Modular Hip Head Femoral Oxinium [id number] - [id number] Implanted:Qty: 1 on 08/02/2023 by Galileo Klein MD at [facility] Left: Hip [employer]Rich[employer]/Or tho [id number] 04/29/2033 [id number] / / [id number] [employer]/ Ortho Modular Neck Hip +0mm 12/14 Taper Sleeve Femoral Titanium [id number] - [id number] Implanted:Qty: 1 on 08/02/2023 by Galileo Klein MD at [facility] Left: Hip [employer]Rich[employer]/Or tho [id number] 04/25/2033 [id number] / / [id number] Procedures Procedure Name Priority Date/Time Associated Diagnosis Comments POCT LIPID PANEL Routine 01/09/2025 1:48 PM CDT 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 EGFR Routine [...] LAB BLOOD ORDERABLES Final Res ult [facility] [address] [facility] Department [place] [address] from Last 3 Months or Most Recently Relevant to Health Maintenance Insurance [employer] Advance Directives For more information, please contact: [phone] * Full Code (Latest Code Status on File) Date Activated Date Inactivated Comments 08/02/2023 9:03 AM 08/03/2023 8:37 PM Care Teams Science Manager Relationship Specialty Start Date End Date Jay Jay Reynoso MD PCP - General Family Medicine 09/08/20 Jay Jay Reynoso MD Family Medicine 11/29/19
--- OUTSIDE RECORDS SUMMARY | 2025-04-06 00:43 | XMS_ITS | Encounter Summary ---
Author Organization [facility] Address 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
--- OUTSIDE RECORDS SUMMARY | 2025-04-06 00:43 | XMS_ITS | Clinical Summary ---
Author Organization [facility] [employer] Address [address] [place] [address] Care Team Providers Care Head Insulation Board Saw Operator Name Role Phone Jay Jay Reynoso MD Primary Care Provider [phone] Source Comments [facility] Affiliates and Associated Physician Practices is amultiple site organization consisting of ambulatory clinics and hospital sitesin [place], [place], [place] and [place]. This disclosure is being madepursuant to the Care Everywhere program and may not contain all information available regarding this patient. Last updated 18.[facility] [employer] Allergies Active Allergy Reactions Criticality Noted Date [...] on file Legal Sex Male 6:18 AM FOOD COUNTER WORKER Gender Identity Male 04/11/2021 8:06 AM CDT Sexual Orientation Not on file Last Filed Vital Signs Vital Sign Reading Time Taken Comments Blood Pressure 107/71 12/22/2022 2:45 PM FOOD COUNTER WORKER Pulse 72 12/22/2022 2:45 PM FOOD COUNTER WORKER Temperature 36.8 C (98.2 F) 12/22/2022 2:45 PM FOOD COUNTER WORKER Respiratory Rate 16 12/22/2022 2:45 PM FOOD COUNTER WORKER Oxygen Saturation 98% 12/22/2022 2:45 PM FOOD COUNTER WORKER Inhaled Oxygen Concentration - - Weight 68 kg (150 lb) 12/22/2022 10:19 AM FOOD COUNTER WORKER Height 165.1 cm (5' 5) 12/22/2022 9:57 AM FOOD COUNTER WORKER Body Mass Index 24.96 12/22/2022 9:57 AM FOOD COUNTER WORKER Plan of Treatment Health Maintenance Due [...] to complete this topic Insurance [address] [place], [place] [id number] [place] [address] MEDICARE ADV [facility] MANAGED MEDICARE ADV SELF PAY NO INSURANCE Member Subscriber Plan / Payer (Ef fective for All Dates) Name:AshleyDarien perez Member ID:Not on file Relation to Subscriber:Not on file Name:DARIEN RAMIREZ Subscriber ID:Not on file (Home) Address: [address] [place] [address] [place] [address] Payer ID:Not on file Group ID:Not on file Type:Self Pay Address: [place], [place] SELF PAY NO INSURANCE Member Subscriber Plan / Payer (Ef fective for All Dates) Name:AshleyDarien Member ID:Not on file Relation to Subscriber:Not on file Name:ASHLEYDARIEN Subscriber ID:Not on file Address: [address] [place] [address] Payer ID:Not on file Group ID:Not on file Type:Self Pay Address: [facility] MANAGED MEDICARE ADV SELF PAY NO INSURANCE Member Subscriber Plan / Payer (Ef fective for All Dates) Name:Darien Ramirez Member ID:Not on file Relation to Subscriber:Not on file Name:DARIEN RAMIREZ Subscriber ID:Not on file Address: [address] [place] [address] Payer ID:Not on file Group ID:Not on file Type:Self Pay Address: [facility] MANAGED MEDICARE ADV SELF PAY NO INSURANCE Member Subscriber Plan / Payer (Ef fective for All Dates) Name:Darien Ramirez Member ID:Not on file Relation to Subscriber:Not on file Name:DARIEN RAMIREZ Subscriber ID:Not on file Address: [address] [place] [address] Payer ID:Not on file Group ID:Not on file Type:Self Pay Address: [facility] MANAGED MEDICARE ADV Care Teams Head Insulation Board Saw Operator Relationship Specialty Start Date End Date Jay Jay Reynoso MD [facility] [place] [address] PCP - General 03/29/12
--- OUTSIDE RECORDS SUMMARY | 2025-04-06 00:43 | XMS_ITS | Encounter Summary ---
Author Organization [employer] Address [address] [place] [address] Care Team Providers Care Window Tinter Name Role Phone Unavailable Primary Care Provider Unavailabl e Encounter Details Date Type Department Care Team (Late st Contact Info) Description 12/14/1999 Outpatient Historical Division of Neurology [address] [address] (Excluded Provider) [place] [address] [facility] [facility] [address] [place] [address] Social History Tobacco Use Types Packs/Day Years Used Date Smoking Tobacco: Never Assessed Sex and Gender Information Value Date Recorded Sex Assigned at Not on file Legal Sex Male 4:08 AM OFFICE RN Gender Identity Not on file Sexual Orientation Not on file documented as of this encounter Plan of Treatment Not on file documented as of this encounter Visit Diagnoses Not on filedocumented in this encounter
--- OUTSIDE RECORDS SUMMARY | 2025-04-06 00:43 | XMS_ITS | Encounter Summary ---
Author Organization [employer] Address 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
--- OUTSIDE RECORDS SUMMARY | 2025-04-06 00:43 | XMS_ITS | Clinical Summary ---
Author Organization [facility] Address [address] [place] [address] [place] [address] Care Team Providers Care Instructional Systems Design Consultant Name Role Phone Unavailable Primary Care Provider Unavailabl e Social History Tobacco Use Types Packs/Day Years Used Date Smoking Tobacco: Never Assessed Sex and Gender Information Value Date Recorded Sex Assigned at Not on file Legal Sex Male 4:08 AM SALES SUPPORT ADMINISTRATOR Gender Identity Not on file Sexual [...] VACCINE (#1) [address] [place] [id number] [facility] [address] [place] [address] [facility] [place] [address]
--- OUTSIDE RECORDS SUMMARY | 2025-04-06 00:43 | XMS_ITS | Encounter Summary ---
Author Organization [employer] Address [address] [place] [address] Care Team Providers Care Director Adult Name Role Phone Unavailable Primary Care Provider Unavailabl e Encounter Details Date Type Department Care Team (Late st Contact Info) Description 01/26/2000 Outpatient Historical Division of Neurology [address] [facility] [address] [address] (Excluded Provider) [place] [address] [address] [facility] [address] [place] [address] Social History Tobacco Use Types Packs/Day Years Used Date Smoking Tobacco: Never Assessed Sex and Gender Information Value Date Recorded Sex Assigned at Not on file Legal Sex Male 4:08 AM HOME CARE AIDE Gender Identity Not on file Sexual Orientation Not on file documented as of this encounter Plan of Treatment Not on file documented as of this encounter Visit Diagnoses Not on filedocumented in this encounter
--- OUTSIDE RECORDS SUMMARY | 2025-04-06 00:43 | XMS_ITS | Encounter Summary ---
Author Organization [facility] Address [address] [place] [address] Phone Care Team Providers Care Assessment Analyst Name Role Phone Diego Nunez MD Primary Care Provider [phone] Jay Jay Reynoso MD Unavailable [phone] Rosibel Rodrigues DPT Unavailable [phone] Jay Jay Reynoso MD Primary Care Provider [phone] Encounter Details Date Type Department Care Team (Late st Contact Info) Description 07/16/2020 Telephone [facility] Physical Therapy [address] [address] Fidelia Macias, B.A. 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 AM RADIATION SAFETY OFFICER Gender Identity Not on file Sexual Orientation Not on file documented as of this encounter Plan of Treatment Not on file documented as of this encounter Visit Diagnoses Not on filedocumented in this encounter Care Teams Assessment Analyst Relationship Specialty Start Date End Date Diego Nunez MD [address] [facility] [address] [place] [address] PCP - General Internal Medicine 11/29/19 09/07/20 Jay Jay Reynoso MD [address] [facility] [address] [place] [address] PCP - General Family Medicine 09/08/20 Jay Jay Reynoso MD [address] [facility] [address] [place] [address] Family Medicine 11/29/19 Rosibel Rodrigues DPT [address] [facility] [address] [place] [address] Physical Therapist Physical Therapy 06/25/20 09/01/20 documented as of this encounter
[2025-04-06 00:48] LABS: Anisocytosis 1+; Band Neutrophils Percent 0 % (0-6); Hypochromasia 1+; Macrocytosis 1+ (NORMAL); Ovalocytes 1+; Platelet Estimate Adequate (Adequate); Schistocytes None Seen
[2025-04-06 00:49] LABS: Troponin I < 0.012 ng/mL (0.000-0.034)
[2025-04-06 01:10] LABS: Add Urine Microscopic? YES; Appearance Urine Turbid (Clear); Bacteria Urine None Seen /hpf; Bilirubin Urine Negative (Negative); Blood Urine 3+ (Negative); Budding Yeast Urine Present /hpf; Color Urine Dark Yellow (Yellow); Glucose Urine UA 3+ mg/dL (Negative); Ketones Urine Negative (Negative); Leukocyte Esterase Ur 2+ LEU/UL (Negative); Need Manual Microscopic Reviewed; Nitrate Urine Negative (Negative); Non Pathogenic Casts 0-2; Protein Urine 2+ mg/dL (Negative); RBC Urine 51-100 /hpf (0-2); Specific Grav Ur 1.023 (1.001-1.035); Squamous Epithelial Cell Urine None Seen /hpf (Few); Urobilinogen Urine 0.2 mg/dL (<2.0); WBC Urine >100 /hpf (0-3); pH Urine 5.5 (5.0-9.0)
[2025-04-06] MEDS: FUROSEMIDE INJ 40 MG/4 ML VIAL IV PUSH (02:03)
--- NOTE | 2025-04-06 02:19 | ED.CHESTPAIN ---
HPI - Chest Pain General Chief Complaint: Chest Pain Stated Complaint: chest pain, and urinary problems Time Seen by Provider: 04/06/25 00:29 History of Present Illness HPI narrative: Patient presents to to his Webber catheter no longer draining, this has happened multiple times in the last few weeks. Having some bladder distention and discomfort. He has also had intermittent chest pain for the last few days history of CABG in the past. None currently. Related Data Home Medications ?Medication ?Instructions ?Recorded ?Confirmed ?Last Taken ?Type ferrous sulfate 325 mg (65 mg 325 mg PO TID 11/27/20 04/05/25 03/27/25 08:00 History iron) tablet (Feosol) multivitamin (Daily Multi-Vitamin 1 tablet PO DAILY 11/27/20 04/05/25 03/27/25 08:00 History tablet) 1 tablet omega-3 fatty acids 1,000 mg 1,000 mg PO DAILY 11/27/20 04/05/25 03/27/25 08:00 History capsule (Super [place]-3) 1,000 mg ranolazine 500 mg tablet,extended 500 mg PO BID 10/13/22 04/05/25 03/27/25 08:00 History release,12 hr 500 mg carvedilol 3.125 mg tablet (Coreg) 3.125 mg PO DAILY 03/17/23 04/05/25 03/10/25 09:00 History coenzyme Q10 100 mg capsule (Co 100 mg PO DAILY 01/01/25 04/05/25 03/27/25 08:00 History Q-10) 100 mg insulin glargine 100 unit/mL (3 12 unit subcut QPM 03/10/25 04/05/25 03/27/25 07:00 History mL) subcutaneous pen (Lantus 12 units Solostar U-100 Insulin) Allergies Allergy/AdvReac Type Severity Reaction Status Date / Time Penicillins Allergy Unknown Hives Verified 04/05/25 10:22 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 Chronic kidney disease Diabetic peripheral neuropathy Iron deficiency anemia Osteoarthritis Hypothyroidism Gastroesophageal reflux disease Coronary artery disease 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 Code status: Full code. Smoking status: Never smoker Second hand tobacco smoke exposure: No Alcohol intake: current Drinks per week: 1 Substance use: never Substance use type: does not use Do You Feel Safe in your Home?: Yes Lack of Transportation: No Lack of Food: Never True Current Housing: I Have Housing Concerned About Future Housing: No Difficulty Paying Gas/Electric Bills: No Difficulty Paying for Meds: No Currently Unemployed: No Education: Bachelor's Degree Difficulty w/ Childcare or Family Care: No Living arrangements: with family Additional living arrangements comments: The patient lives in his own home in [place]. He and his are . 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: No Exam Narrative: EXAMINATION OF ORGAN SYSTEMS/BODY AREAS: Constitutional: Vital signs per nursing GENERAL:[No acute distress, non-toxic appearing.] HEAD: Normal with no signs of head trauma. EYES: EOMI, conjunctiva normal ENT: Hearing grossly intact LUNGS: Nonlabored breathing. HEART: [Regular rate and rhythm] ABD: [Soft], [nontender to palpation] EXT: Normal range of motion SKIN: [No rashes or lesions.] NEURO: [Alert and oriented x 3. No gross focal sensory or strength deficits.] PSYCH: Normal affect Course Vital Signs Vital signs: Vital Signs Temperature 97.7 F 04/06/25 00:09 Pulse Rate 75 04/06/25 00:09 Respiratory Rate 24 H 04/06/25 00:09 Blood Pressure 120/69 04/06/25 00:09 Pulse Oximetry 100 04/06/25 00:09 Oxygen Delivery Room Air 04/06/25 00:09 Temperature 97.7 F 04/06/25 00:09 Pulse Rate 70 04/06/25 03:33 Respiratory Rate 20 04/06/25 03:33 Blood Pressure 120/56 L 04/06/25 03:33 Pulse Oximetry 99 04/06/25 03:33 Oxygen Delivery Room Air 04/06/25 00:45 MDM - Chest Pain MDM Narrative Medical decision making narrative: Patient with chest pain for the last day, on/off, none currently, but does have a history of CABG in the past. He mostly came in today because his Webber catheter was no longer draining. It has gotten clogged with blood clots multiple times over last few weeks. Last replaced about a week ago. On evaluation, catheter indeed clogged, but the 2nd port was able to drain, relieving his symptoms, on bladder scan bladder was drained. After manual irrigation, blood clot removed and ultimately decision made to replace the catheter. Given the frequency of these episodes patient is concerned about going home at this time. I did feel it seemed reasonable to keep him in the hospital for this as well as for his chest pain given he is a high-risk patient. Discussed with hospitalist. Initial EKG on my independent interpretation shows normal sinus rhythm rate 73, PA 170, QRS 169, QTC 483, left axis, right bundle-branch block, no obvious ST elevations depressions or signs of acute ischemia or arrhythmia, I did compare this to his prior EKG and there is no obvious change Chest x-ray on my independent interpretation does not show any obvious pulmonary vascular congestion, effusions, consolidations or pneumothorax. Patient will be admitted for chest pain observation/urinary issues Lab Data 04/06/25 00:22 04/06/25 00:22 Labs: Lab Results 04/06/25 04/06/25 04/06/25 Range/Units 00:22 00:23 00:58 WBC 3.5 L (4.5-10.0) K/mm3 RBC 1.93 L (4.6-6.20) M/mm3 Hgb 7.3 L (14.0-18.0) g/dL Hct 21.9 L (42.0-52.0) % MCV 113.5 H (80-100) fl MCH 37.8 H (26-34) pg MCHC 33.3 (32-36) g/dl RDW 14.6 H (11.5-14.5) % Plt Count 154 (150-375) k/mm3 MPV 9.3 (7.4-10.4) fl Immature Gran % (Auto) 0.3 (0-0.5) % Neut % (Auto) 55.0 (45.5-73.1) % Lymph % (Auto) 35.8 (18.3-44.2) % [place] % (Auto) 5.7 (2.6-8.5) % Eos % (Auto) 2.6 (0-4.4) % Baso % (Auto) 0.6 (0.2-1.2) % Lymph # (Auto) 1.25 (0.9-3.2) K/mm3 [place] # (Auto) 0.2 (0.1-0.6) K/mm3 Eos # (Auto) 0.1 (0-0.3) K/mm3 Baso # (Auto) 0.0 (0.0-0.1) K/mm3 Abs Immat Gran (auto) 0.01 (0.00-0.031) K/mm3 Absolute Neuts (auto) 1.9 (1.3-6.7) K/mm3 Absolute Nucleated RBC 0.000 (0.0-0.012) K/mm3 Band Neutrophils % 0 (0-6) % Nucleated RBC % 0.0 (0.0-0.2) % Platelet Estimate Adequate (Adequate) Hypochromasia 1+ Anisocytosis 1+ Macrocytosis 1+ (NORMAL) Ovalocytes 1+ Schistocytes None seen PT 13.7 (11.1-14.7) Seconds INR 1.1 APTT 30.5 (22.3-36.8) Seconds Sodium 137 (137-145) mmol/L Potassium 4.8 (3.4-5.0) mmol/L Chloride 104 (98-107) mmol/L Carbon Dioxide 23 (22-30) mmol/L Anion Gap 10 (4-12) mmol/L BUN 35 H D (9-20) mg/dL Creatinine 1.32 H (0.7-1.3) mg/dL Estim Creat Clear Calc 36 ml/min Estimated GFR 52 L (59 - ) Glucose 221 H (65-110) mg/dL Calcium 9.2 (8.4-10.2) mg/dL Total Bilirubin 0.3 (0.2-1.3) mg/dL AST 35 (17-59) U/L ALT 25 (6-50) U/L Alkaline Phosphatase 41 (38-126) U/L Troponin I < 0.012 (0.000-0.034) ng/mL Total Protein 7.3 (6.3-8.2) g/dL Albumin 4.2 (3.5-5.1) g/dL Lipase 16 L (23-300) U/L Urine Color Dark yellow (Yellow) Urine Appearance Turbid H (Clear) Urine pH 5.5 (5.0-9.0) Ur Specific [place] 1.023 (1.001-1.035) Urine Protein 2+ H (Negative) mg/dL Urine Glucose (UA) 3+ H (Negative) mg/dL Urine Ketones Negative (Negative) mg/dL Ur Blood (Man) 3+ H (Negative) Urine Nitrate Negative (Negative) Urine Bilirubin Negative (Negative) Urine Urobilinogen 0.2 (<2.0) mg/dL Add Ur Microanalysis Reviewed Leukocyte Esterase Rfl 2+ H (Negative) YARELIS/UL Urine RBC 51-100 H (0-2) /hpf Urine WBC >100 H (0-3) /hpf Ur Squamous Epith Cells None seen (Few) /hpf Urine Bacteria None seen /hpf Urine Casts 0-2 Urine Yeast (Budding) Present H (None) /hpf 04/06/ Range/Units 03:31 WBC (4.5-10.0) K/mm3 RBC (4.6-6.20) M/mm3 Hgb (14.0-18.0) g/dL Hct (42.0-52.0) % MCV (80-100) fl MCH (26-34) pg MCHC (32-36) g/dl RDW (11.5-14.5) % Plt Count (150-375) k/mm3 MPV (7.4-10.4) fl Immature Gran % (Auto) (0-0.5) % Neut % (Auto) (45.5-73.1) % Lymph % (Auto) (18.3-44.2) % [place] % (Auto) (2.6-8.5) % Eos % (Auto) (0-4.4) % Baso % (Auto) (0.2-1.2) % Lymph # (Auto) (0.9-3.2) K/mm3 [place] # (Auto) (0.1-0.6) K/mm3 Eos # (Auto) (0-0.3) K/mm3 Baso # (Auto) (0.0-0.1) K/mm3 Abs Immat Gran (auto) (0.00-0.031) K/mm3 Absolute Neuts (auto) (1.3-6.7) K/mm3 Absolute Nucleated RBC (0.0-0.012) K/mm3 Band Neutrophils % (0-6) % Nucleated RBC % (0.0-0.2) % Platelet Estimate (Adequate) Hypochromasia Anisocytosis Macrocytosis (NORMAL) Ovalocytes Schistocytes PT (11.1-14.7) Seconds INR APTT (22.3-36.8) Seconds Sodium (137-145) mmol/L Potassium (3.4-5.0) mmol/L Chloride (98-107) mmol/L Carbon Dioxide (22-30) mmol/L Anion Gap (4-12) mmol/L BUN (9-20) mg/dL Creatinine (0.7-1.3) mg/dL Estim Creat Clear Calc ml/min Estimated GFR (59 - ) Glucose (65-110) mg/dL Calcium (8.4-10.2) mg/dL Total Bilirubin (0.2-1.3) mg/dL AST (17-59) U/L ALT (6-50) U/L Alkaline Phosphatase (38-126) U/L Troponin I < 0.012 (0.000-0.034) ng/mL Total Protein (6.3-8.2) g/dL Albumin (3.5-5.1) g/dL Lipase (23-300) U/L Urine Color (Yellow) Urine Appearance (Clear) Urine pH (5.0-9.0) Ur Specific [place] (1.001-1.035) Urine Protein (Negative) mg/dL Urine Glucose (UA) (Negative) mg/dL Urine Ketones (Negative) mg/dL Ur Blood (Man) (Negative) Urine Nitrate (Negative) Urine Bilirubin (Negative) Urine Urobilinogen (<2.0) mg/dL Add Ur Microanalysis Leukocyte Esterase Rfl (Negative) YARELIS/UL Urine RBC (0-2) /hpf Urine WBC (0-3) /hpf Ur Squamous Epith Cells (Few) /hpf Urine Bacteria /hpf Urine Casts Urine Yeast (Budding) (None) /hpf Discharge Plan Discharge Clinical Impression: Chest pain, Clot hematuria Patient Disposition: Still a Patient Condition: Stable Patient Language: Arabic Prescriptions: No Action omega-3 fatty acids [Super [place]-3] 1,000 mg capsule 1,000 mg PO DAILY multivitamin [Daily Multi-Vitamin] Tablet 1 tablet PO DAILY ferrous sulfate [Feosol] 325 mg (65 mg iron) tablet 325 mg PO TID Patient Comments: Supposed to be TID but takes 1 in AM and that 2 PM Entresto 24-26 mg tablet 1 tablet PO BID Qty: 30 0RF (DME) FreeStyle Drea 2 [place] Misc See Rx Instructions .Route Qty: 1 0RF Rx Instructions: As directed isosorbide mononitrate 60 mg tablet extended release 24 hr 60 mg PO BID Qty: 180 3RF ranolazine 500 mg tablet extended release 12 hr 500 mg PO BID carvedilol [Coreg] 3.125 mg Tablet 3.125 mg PO DAILY Patient Comments: MD told to stop but reduced it to daily as felt it was too much to stop Rx Instructions: must administer with a meal/food insulin glargine [Lantus Solostar U-100 Insulin] 100 unit/mL (3 mL) insulin pen 12 unit subcut QPM coenzyme Q10 [Co Q-10] 100 mg capsule 100 mg PO DAILY (DME) OneTouch Verio test strips Strip See Rx Instructions .ROUTE .MEDSUPPLY Qty: 200 3RF Rx Instructions: Use to test blood sugar bid, daily and as directed Trijardy XR 5-2.5-1,000 mg tablet, IR - ER, biphasic 24hr 2 tablet PO QAM Qty: 180 4RF nitroglycerin 0.4 mg tablet, sublingual 0.4 mg SUBLINGUAL Q5M PRN (Reason: chest pain) Qty: 25 2RF Patient Comments: PRN (DME) FreeStyle Drea 2 Sensor Kit See Rx Instructions .Route Qty: 13 1RF Rx Instructions: As directed levothyroxine 100 mcg tablet 100 mcg PO DAILY Qty: 90 1RF pantoprazole 20 mg tablet,delayed release (DR/EC) 20 mg PO QAM 90 Days Qty: 90 3RF Follow-up/Referrals: Jay Jay Reynoso MD [Primary Care Provider] -
[2025-04-06 03:58] LABS: Troponin I < 0.012 ng/mL (0.000-0.034)
--- NOTE | 2025-04-06 05:15 | ADMGEN ---
This patient, Darien Guzman, was admitted to Medical Room 261-01. Patient/family oriented to hospital policies and general routines including ID bracelet, bed and alarms, visiting hours, pain management, procedures, bathroom and other care routines, personal items, smoking policy, room service/diet, and visiting hours. Information on how to activate the Rapid Response Team has been discussed. Patient/Family are encouraged to report perceived risks to care and to ask questions if they do not understand what they are told or what they should do.
[2025-04-06 07:01] LABS: Troponin I < 0.012 ng/mL (0.000-0.034)
--- NOTE | 2025-04-06 08:13 | PM.IMHP ---
H&P: HPI History of Present Illness Date/Time: 04/06/25 08:13 Chief Complaint: Difficulty Voiding, chest pain Narrative: The patient is an 79 year old man hx CABG, TIA, anemia, HLD, BPH, GERD, chronic Webber, admitted for a catheter that clotted and was not draining. He reports epigastric chest pain for the last day, on/off that started after a meal but resolved with nitro. He notes a history of esophageal spasms also prior CABG. He had done some mildly physical work and had bleeding and clots in his Webber catheter bag. He came in to the ER because his Webber catheter was no longer draining. It has gotten clogged with blood clots multiple times over last few weeks. Last replaced about a week ago. In the ED the catheter was clogged, but the 2nd port was able to drain. Abdominal pain was relieved after his catheter was drained. After manual irrigation, blood clot removed and ultimately decision made to replace the catheter. EKG NSR, no acute changes. Troponin was negative x3. VSS. Afebrile, HR 66, RR 18, BP 131/51 in the ED. Chest x-ray on my independent interpretation does not show any obvious pulmonary vascular congestion, effusions, consolidations or pneumothorax. Patient was admitted for chest pain observation/urinary issues He was recently admitted to [facility] from 03/28 - 04/01 due to catheter obstruction due to small clot. He also had a UTI and mild KARYNA. Urology did a cystoscopy with clot evacuation and CBI. He was sent home on linezolid and cipro. 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 Code status: Full code. Smoking status: Never smoker Second hand tobacco smoke exposure: No Alcohol intake: never Drinks per week: 1 Substance use: never Substance use type: does not use Do You Feel Safe in your Home?: Yes Lack of Transportation: No Lack of Food: Never True Current Housing: I Have Housing Concerned About Future Housing: No Difficulty Paying Gas/Electric Bills: No Difficulty Paying for Meds: No Currently Unemployed: No Education: Bachelor's Degree Difficulty w/ Childcare or Family Care: No Living arrangements: with family Additional living arrangements comments: The patient lives in his own home in [place]. He and his are . 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: No Meds Home Medications and Allergies Home Medications ?Medication ?Instructions ?Recorded ?Confirmed ?Type ferrous sulfate 325 mg (65 mg 325 mg PO TID 11/27/20 04/06/25 History iron) tablet (Feosol) multivitamin (Daily Multi-Vitamin 1 tablet PO DAILY 11/27/20 04/06/25 History tablet) omega-3 fatty acids 1,000 mg 1,000 mg PO DAILY 11/27/20 04/06/25 History capsule (Super [place]-3) ranolazine 500 mg tablet,extended 500 mg PO BID 10/13/22 04/06/25 History release,12 hr sacubitril 24 mg-valsartan 26 mg 1 tablet PO BID #30 tabs 11/15/22 04/06/25 Rx tablet (Entresto) blood sugar diagnostic (OneTouch #200 ea 01/05/23 04/06/25 Rx Verio test strips) carvedilol 3.125 mg tablet (Coreg) 3.125 mg PO DAILY 03/17/23 04/06/25 History flash glucose scanning reader #1 ea 08/31/23 04/06/25 Rx (FreeStyle Drea 2 [place]) isosorbide mononitrate 60 mg 60 mg PO BID #180 tabs 12/26/23 04/06/25 Rx tablet,extended release 24 hr empagliflozin 5 mg-linagliptin 2.5 2 tablet (2 x 5-2.5-1,000 mg) PO 06/18/24 04/06/25 Rx mg-metformn ER 1,000 mg QAM #180 ea tablet,24hr (Trijardy XR) nitroglycerin 0.4 mg sublingual 0.4 mg sublingual Q5M PRN chest 09/28/24 04/06/25 Rx tablet pain #25 tabs coenzyme Q10 100 mg capsule (Co 100 mg PO DAILY 01/01/25 04/06/25 History Q-10) flash glucose sensor (FreeStyle #13 ea 01/21/25 04/06/25 Rx Drea 2 Sensor kit) levothyroxine 100 mcg tablet 100 mcg PO DAILY #90 tabs 01/22/25 04/06/25 Rx insulin glargine 100 unit/mL (3 12 unit subcut QPM 03/10/25 04/06/25 History mL) subcutaneous pen (Lantus Solostar U-100 Insulin) pantoprazole 20 mg tablet,delayed 20 mg PO QAM 3 months #90 tabs 03/26/25 04/06/25 Rx release aspirin 81 mg capsule 81 mg PO DAILY 04/06/25 04/06/25 History Allergies Allergy/AdvReac Type Severity Reaction Status Date / Time Penicillins Allergy Unknown Hives Verified 04/05/25 10:22 Vital Signs Vital Signs - 24 hr 04/06/25 00:09 04/06/25 00:45 04/06/25 03:33 Temperature 97.7 F Pulse Rate 75 70 Respiratory Rate 24 H 20 Blood Pressure 120/69 120/56 L Pulse Oximetry 100 100 99 Oxygen Delivery Room Air Room Air 04/06/25 05:00 04/06/25 05:20 Temperature 97.8 F Pulse Rate 72 66 Respiratory Rate 15 18 Blood Pressure 122/60 131/51 L Pulse Oximetry 98 100 Oxygen Delivery Exam Narrative: General - Awake and alert. No acute distress Eyes - PERRLA, EOM intact ENT - No thrush, No erythema Neck - No noticeable or palpable swelling Lymph Nodes - No lymphadenopathy Cardiovascular - RRR no m/r/g, no JVD Lungs: Clear to auscultation, No wheezing, use of accessory muscles, no crackles Skin - Skin warm and dry, no wounds or rashes Abdomen - Normal bowel sounds, abdomen soft and nontender Webber catheter in place with yellow urine Extremities - No edema, cyanosis or clubbing Musculoskeletal - 5/5 strength, normal range of motion, no swollen or erythematous joints. Neurological ? Alert and oriented x 3, CN 2-12 grossly intact. Psych: Normal mood and affect H&P: Results Labs Labs: Short CBC 04/06/25 Range/Units 00:22 WBC 3.5 L (4.5-10.0) K/mm3 Hgb 7.3 L (14.0-18.0) g/dL Hct 21.9 L (42.0-52.0) % Plt Count 154 (150-375) k/mm3 BMP 04/06/25 00:22 Sodium 137 Potassium 4.8 Chloride 104 Carbon Dioxide 23 BUN 35 H D Creatinine 1.32 H Glucose 221 H Calcium 9.2 Cardiac Enzymes 04/06/25 04/06/25 04/06/25 Range/Units 00:22 03:31 06:33 Troponin I < 0.012 < 0.012 < 0.012 (0.000-0.034) ng/mL Liver Function 04/06/25 Range/Units 00:22 Total Bilirubin 0.3 (0.2-1.3) mg/dL AST 35 (17-59) U/L ALT 25 (6-50) U/L Alkaline Phosphatase 41 (38-126) U/L Albumin 4.2 (3.5-5.1) g/dL Urine 04/06/25 Range/Units 00:58 Urine Color Dark yellow (Yellow) Urine Appearance Turbid H (Clear) Urine pH 5.5 (5.0-9.0) Ur Specific [place] 1.023 (1.001-1.035) Urine Protein 2+ H (Negative) mg/dL Urine Glucose (UA) 3+ H (Negative) mg/dL Assessment and Plan Assessment and plan (1) Atypical chest pain: Code(s): R07.89 - Other chest pain Status: Acute Assessment and Plan: Hx CAD --Continue ASA, Carvedilol 3.125 daily (reports previously took twice a day and it was changed to daily for low blood pressures) --Resume home isosorbide BID --Nitro prn (2) Muscle cramps: Code(s): R25.2 - Cramp and spasm Status: Acute Assessment and Plan: Mag 1.5 --2G IV mag --Recheck in AM (3) CAD (coronary artery disease): Code(s): I25.10 - Atherosclerotic heart disease of [place] coronary artery without angina pectoris Status: Acute Assessment and Plan: Continue ASA (4) Urinary obstruction: Code(s): N13.9 - Obstructive and reflux uropathy, unspecified Status: Acute Assessment and Plan: Webber replaced in ED Urology consulted, can follow up with urology on Tuesday (5) Type 2 diabetes mellitus with hyperglycemia: Qualifiers: Diabetes mellitus alf insulin use: without terminal operations manager use Qualified Code(s): E11.65 - Type 2 diabetes mellitus with hyperglycemia Code(s): E11.65 - Type 2 diabetes mellitus with hyperglycemia Status: Acute Assessment and Plan: Home Lantus 12 daily --Decrease to 10 units hs --SSI Quality VTE Prophylaxis VTE prophylaxis: mechanical ordered If No VTE Prophylaxis Answer both mechanical and pharmacologic: Reason no mechanical VTE proph: medical contraindication Hospitalist MIPS Advance Care Plan I have confirmed that the patient's Advanced Care Plan is present, code status is documented, or surrogate decision maker is listed in patient medical record.: Yes Medication Reconciliation I have utilized all available resources to obtain, update and review the patients current medications (includes all prescriptions, OTC, herbals, cannabis, and nutritional supplements).: Yes
[2025-04-06 11:49] LABS: Magnesium 1.5 mg/dL (1.6-2.3)
[2025-04-06] MEDS: CYCLOBENZAPRINE HCL 5 MG TABLET PO (12:10)
[2025-04-06] MEDS: MAGNESIUM SULF 2 GM/WATER 50ML 2 GM/50 ML BAG IVPB (12:14)
--- NOTE | 2025-04-06 14:30 | P.CONUR_ITS ---
Assessment and Plan Assessment and plan (1) Clot hematuria: Code(s): R31.0 - Gross hematuria Status: Acute Assessment and Plan: - Patient's catheter is not draining completely clear yellow with no signs of clots at all. No acute surgical intervention is required. -the plan is to either have the patient undergo a prostate artery embolization, or undergo some aspect of a prostate surgery in order to decrease the hematuria during presumably from his enlarged prostate (diagnosed during from the clot evacuation performed by Dr. Mills), the patient states he has an appointment with Urology on Tuesday, as well as an appointment with the interventional radiologist in the future. They are leaning towards doing some kind of urologic intervention for the prostate to have this done sooner. -from my standpoint, he is low his discharge later today versus tomorrow morning as long the catheter is clear, and he already has follow-up scheduled. Urology Consult Note HPI Date Seen: 04/06/25 Requesting Physician: Amanda Salcido APRN Primary Care Provider: Jay Jay Reynoso MD Consult Narrative Narrative: Darien Guzman is a 79 year old male with a recent history of clot retention and just recently admitted for a clot evacuation with Dr. Mills and CBI through his catheter they cleared up he was discharged with a catheter home. Since he has been home, things have been going well. However, he started having more hematuria and unfortunately he had clots that clogged the bladder and cause the patient significant amount of discomfort. He then presented to the emergency room. He was evaluated in his white blood cell count in not elevated, and his creatinine is 1.3 with a baseline from when he was discharged previously. His Webber catheter was irrigated to clear the patient was admitted. Urology consulted to evaluate catheter. Patient states he feels much better today. He states he has had no clots his catheter has been draining completely crystal clear. He has had no major issues. He denies any problems with his catheter draining. 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 Chronic kidney disease Diabetic peripheral neuropathy Iron deficiency anemia Osteoarthritis Hypothyroidism Gastroesophageal reflux disease Coronary artery disease 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 Code status: Full code. Smoking status: Never smoker Second hand tobacco smoke exposure: No Alcohol intake: never Drinks per week: 1 Substance use: never Substance use type: does not use Do You Feel Safe in your Home?: Yes Lack of Transportation: No Lack of Food: Never True Current Housing: I Have Housing Concerned About Future Housing: No Difficulty Paying Gas/Electric Bills: No Difficulty Paying for Meds: No Currently Unemployed: No Education: Bachelor's Degree Difficulty w/ Childcare or Family Care: No Living arrangements: with family Additional living arrangements comments: The patient lives in his own home in [place]. He and his are . 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: No Meds Home Medications and Allergies Home Medications ?Medication ?Instructions ?Recorded ?Confirmed ?Type ferrous sulfate 325 mg (65 mg 325 mg PO TID 11/27/20 04/06/25 History iron) tablet (Feosol) multivitamin (Daily Multi-Vitamin 1 tablet PO DAILY 11/27/20 04/06/25 History tablet) omega-3 fatty acids 1,000 mg 1,000 mg PO DAILY 11/27/20 04/06/25 History capsule (Super [place]-3) ranolazine 500 mg tablet,extended 500 mg PO BID 10/13/22 04/06/25 History release,12 hr sacubitril 24 mg-valsartan 26 mg 1 tablet PO BID #30 tabs 11/15/22 04/06/25 Rx tablet (Entresto) blood sugar diagnostic (OneTouch #200 ea 01/05/23 04/06/25 Rx Verio test strips) carvedilol 3.125 mg tablet (Coreg) 3.125 mg PO DAILY 03/17/23 04/06/25 History flash glucose scanning reader #1 ea 08/31/23 04/06/25 Rx (FreeStyle Drea 2 [place]) isosorbide mononitrate 60 mg 60 mg PO BID #180 tabs 12/26/23 04/06/25 Rx tablet,extended release 24 hr empagliflozin 5 mg-linagliptin 2.5 2 tablet (2 x 5-2.5-1,000 mg) PO 06/18/24 04/06/25 Rx mg-metformn ER 1,000 mg QAM #180 ea tablet,24hr (Trijardy XR) nitroglycerin 0.4 mg sublingual 0.4 mg sublingual Q5M PRN chest 09/28/24 04/06/25 Rx tablet pain #25 tabs coenzyme Q10 100 mg capsule (Co 100 mg PO DAILY 01/01/25 04/06/25 History Q-10) flash glucose sensor (FreeStyle #13 ea 01/21/25 04/06/25 Rx Drea 2 Sensor kit) levothyroxine 100 mcg tablet 100 mcg PO DAILY #90 tabs 01/22/25 04/06/25 Rx insulin glargine 100 unit/mL (3 12 unit subcut QPM 03/10/25 04/06/25 History mL) subcutaneous pen (Lantus Solostar U-100 Insulin) pantoprazole 20 mg tablet,delayed 20 mg PO QAM 3 months #90 tabs 03/26/25 04/06/25 Rx release aspirin 81 mg capsule 81 mg PO DAILY 04/06/25 04/06/25 History Allergies Allergy/AdvReac Type Severity Reaction Status Date / Time Penicillins Allergy Unknown Hives Verified 04/05/25 10:22 Vital Signs Vital Signs - 24 hr 04/06/25 00:09 04/06/25 00:45 04/06/25 03:33 Temperature 36.5 C Pulse Rate 75 70 Respiratory Rate 24 H 20 Blood Pressure 120/69 120/56 L Pulse Oximetry 100 100 99 Oxygen Delivery Room Air Room Air 04/06/25 05:00 04/06/25 05:20 04/06/25 08:00 Temperature 36.6 C Pulse Rate 72 66 67 Respiratory Rate 15 18 Blood Pressure 122/60 131/51 L Pulse Oximetry 98 100 Oxygen Delivery 04/06/25 12:00 Temperature Pulse Rate 87 Respiratory Rate Blood Pressure Pulse Oximetry Oxygen Delivery Exam 2 Const: General: comfortable and no acute distress Urinary Catheter: Urinary Catheter: patent and draining and urine clear (No hematuria noted, no clots noted all.) Results Labs 04/06/25 00:22 04/06/25 00:22 Labs: Short CBC 04/06/25 Range/Units 00:22 WBC 3.5 L (4.5-10.0) K/mm3 Hgb 7.3 L (14.0-18.0) g/dL Hct 21.9 L (42.0-52.0) % Plt Count 154 (150-375) k/mm3 BMP 04/06/25 00:22 Sodium 137 Potassium 4.8 Chloride 104 Carbon Dioxide 23 BUN 35 H D Creatinine 1.32 H Glucose 221 H Calcium 9.2 Cardiac Enzymes 04/06/25 04/06/25 04/06/25 Range/Units 00:22 03:31 06:33 Troponin I < 0.012 < 0.012 < 0.012 (0.000-0.034) ng/mL Liver Function 04/06/25 Range/Units 00:22 Total Bilirubin 0.3 (0.2-1.3) mg/dL AST 35 (17-59) U/L ALT 25 (6-50) U/L Alkaline Phosphatase 41 (38-126) U/L Albumin 4.2 (3.5-5.1) g/dL Urine 04/06/25 Range/Units 00:58 Urine Color Dark yellow (Yellow) Urine Appearance Turbid H (Clear) Urine pH 5.5 (5.0-9.0) Ur Specific [place] 1.023 (1.001-1.035) Urine Protein 2+ H (Negative) mg/dL Urine Glucose (UA) 3+ H (Negative) mg/dL
[2025-04-06 21:20] LABS: Glucose Point of Care 212 mg/dl (65-105)
[2025-04-07] VITALS: PULSE 66
[2025-04-07 04:00] VITALS: PULSE 63
[2025-04-07 05:39] LABS: Basophils Percent Auto 0.4 % (0.2-1.2); Eosinophils Absolute Auto 0.1 K/mm3 (0-0.3); Eosinophils Percent Auto 3.5 % (0-4.4); Hematocrit 21.5 % (42.0-52.0); Hemoglobin 7.1 g/dL (14.0-18.0); Immature Granulocyte Absolute 0.01 K/mm3 (0.00-0.031); Immature Granulocyte Percent A 0.4 % (0-0.5); Lymphocytes Absolute Auto 1.27 K/mm3 (0.9-3.2); Mean Corpuscular Hemoglobin 37.2 pg (26-34); Mean Corpuscular Volume 112.6 fl (80-100); Mean Platelet Volume 9.9 fl (7.4-10.4); Monocytes Absolute Auto 0.2 K/mm3 (0.1-0.6); Monocytes Percent Auto 9.4 % (2.6-8.5); Neutrophils Absolute Auto 0.9 K/mm3 (1.3-6.7); Neutrophils Percent Auto 36.3 % (45.5-73.1); Platelet Count Result 110 k/mm3 (150-375); Red Blood Count 1.91 M/mm3 (4.6-6.20); White Blood Count 2.5 K/mm3 (4.5-10.0)
[2025-04-07 05:40] VITALS: BP 118/54; PULSE 65; RESP 16; TEMP 36.3; O2SAT 99
[2025-04-07 05:53] LABS: Anion Gap 6 mmol/L (4-12); Blood Urea Nitrogen 23 mg/dL (9-20); Calcium 8.8 mg/dL (8.4-10.2); Carbon Dioxide 27 mmol/L (22-30); Chloride 103 mmol/L (98-107); Estimated CRCL calculation 44 ml/min; Estimated Glomerular Filt Rate > 60; Glucose 176 mg/dL (65-110); Magnesium 1.7 mg/dL (1.6-2.3); Potassium 4.2 mmol/L (3.4-5.0); Sodium 136 mmol/L (137-145)
[2025-04-07] MEDS: LEVOTHYROXINE SODIUM 100 MCG TABLET PO (06:01)
[2025-04-07 06:39] LABS: Anisocytosis 1+; Ovalocytes 1+; Platelet Estimate Decreased (Adequate); Schistocytes None Seen
[2025-04-07 08:01] LABS: Glucose Point of Care 140 mg/dl (65-105)
[2025-04-07 08:49] VITALS: BP 137/66
[2025-04-07 08:54] VITALS: PULSE 62
[2025-04-07] MEDS: ASPIRIN 81 MG ENTERIC TABLET PO (08:54)
[2025-04-07] MEDS: PANTOPRAZOLE SOD SESQUIHYDRATE 20 MG TAB PO (08:54)
[2025-04-07] MEDS: MULTIVITAMINS THERAPEUTIC TAB (*BKC) 1 TABLET PO (08:54)
[2025-04-07] MEDS: carvediloL 3.125 MG TABLET PO (08:54)
[2025-04-07] MEDS: ISOSORBIDE MONONITRATE 60 MG TAB.ER.24H PO (08:54)
[2025-04-07] MEDS: SACUBITRIL/VALSARTAN 24-26 MG TABLET 1 TAB PO (08:54)
[2025-04-07] MEDS: RANOLAZINE 500 MG TAB.ER.12H PO (08:54)
[2025-04-07] MEDS: MAGNESIUM SULF 2 GM/WATER 50ML 2 GM/50 ML BAG IVPB (09:32)
--- NOTE | 2025-04-07 10:11 | P.DS_ITS ---
DS: Admitting Diagnosis Discharge Date 04/07/2025 Admitting Diagnosis Hematuria DS: Discharge Diagnosis Discharge Diagnosis (1) Hypotension due to blood loss: Code(s): I95.89 - Other hypotension; R58 - Hemorrhage, not elsewhere classified Status: Acute (2) Clot hematuria: Code(s): R31.0 - Gross hematuria Status: Acute (3) Complication of Saini catheter: Code(s): T83.9XXA - Unspecified complication of genitourinary prosthetic device, implant and graft, initial encounter Status: Acute (4) Acute anemia: Code(s): D64.9 - Anemia, unspecified Status: Acute DS: Summary Hospital Course Reason for hospitalization: Copied from [facility] 04/06 The patient is an 79 year old man hx CABG, TIA, anemia, HLD, BPH, GERD, chronic Saini, admitted for a catheter that clotted and was not draining. He reports epigastric chest pain for the last day, on/off that started after a meal but resolved with nitro. He notes a history of esophageal spasms also prior CABG. He had done some mildly physical work and had bleeding and clots in his Saini catheter bag. He came in to the ER because his Saini catheter was no longer draining. It has gotten clogged with blood clots multiple times over last few weeks. Last replaced about a week ago. In the ED the catheter was clogged, but the 2nd port was able to drain. Abdominal pain was relieved after his catheter was drained. After manual irrigation, blood clot removed and ultimately decision made to replace the catheter. EKG NSR, no acute changes. Troponin was negative x3. VSS. Afebrile, HR 66, RR 18, BP 131/51 in the ED. Chest x-ray on my independent interpretation does not show any obvious pulmonary vascular congestion, effusions, consolidations or pneumothorax. Patient was admitted for chest pain observation/urinary issues He was recently admitted to [facility] from 03/28 - 04/01 due to catheter obstruction due to small clot. He also had a UTI and mild KARYNA. Urology did a cystoscopy with clot evacuation and CBI. He was sent home on linezolid and cipro. Hospital Course: Urinary obstruction: Urology consulted for clots in saini and acute hematuria. Patient had been more active so may have gotten pulled. Saini replaced in ED. Urology consulted, following up with urology on Tuesday Urine culture pending at discharge, grew jai albicans, likely a colonizer Hematuria Thrombocytopenia Anemia Saini clear prior to discharge, no hematuria. Platelet count low, 110. Drop may be second to acute blood loss Blood count improved after a transfusion 6.9>6.6<7 --Follow up labs in a week Atypical chest pain: Hx CAD. Chest pain atypical, felt it was similar to esophageal spasms previously. Resolved with nitro and did not recur. 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 No acute distress Eyes - PERRLA, EOM intact ENT - No thrush, No erythema Neck - No noticeable or palpable swelling Lymph Nodes - No lymphadenopathy Cardiovascular - RRR no m/r/g, no JVD Lungs: Clear to auscultation, No wheezing, use of accessory muscles, no crackles Skin - Skin warm and dry, no wounds or rashes Abdomen - Normal bowel sounds, abdomen soft and nontender Saini catheter in place with yellow urine Extremities - No edema, cyanosis or clubbing Musculoskeletal - 5/5 strength, normal range of motion, no swollen or erythematous joints. Neurological ? Alert and oriented x 3, CN 2-12 grossly intact. Psych: Normal mood and affect DS: Data Data Completed and Pending Labs on day of discharge: Labs from last 24 hours 04/07/25 04/07/25 04/06/25 07:52 05:29 21:16 WBC 2.5 L RBC 1.91 L Hgb 7.1 L Hct 21.5 L MCV 112.6 H MCH 37.2 H MCHC 33.0 RDW 14.0 Plt Count 110 L MPV 9.9 Immature Gran % (Auto) 0.4 Neut % (Auto) 36.3 L Lymph % (Auto) 50.0 H [place] % (Auto) 9.4 H Eos % (Auto) 3.5 Baso % (Auto) 0.4 Lymph # (Auto) 1.27 [place] # (Auto) 0.2 Eos # (Auto) 0.1 Baso # (Auto) 0.0 Abs Immat Gran (auto) 0.01 Absolute Neuts (auto) 0.9 L Absolute Nucleated RBC 0.000 Band Neutrophils % Not Reportable Nucleated RBC % 0.0 Platelet Estimate Decreased Anisocytosis 1+ Ovalocytes 1+ Schistocytes None seen Sodium 136 L Potassium 4.2 Chloride 103 Carbon Dioxide 27 Anion Gap 6 BUN 23 H D Creatinine 1.08 Estim Creat Clear Calc 44 Estimated GFR > 60 Glucose 176 H POC Capillary Glucose 140 H 212 H Calcium 8.8 Phosphorus Magnesium 1.7 04/06/25 11:33 WBC RBC Hgb Hct MCV MCH MCHC RDW Plt Count MPV Immature Gran % (Auto) Neut % (Auto) Lymph % (Auto) [place] % (Auto) Eos % (Auto) Baso % (Auto) Lymph # (Auto) [place] # (Auto) Eos # (Auto) Baso # (Auto) Abs Immat Gran (auto) Absolute Neuts (auto) Absolute Nucleated RBC Band Neutrophils % Nucleated RBC % Platelet Estimate Anisocytosis Ovalocytes Schistocytes Sodium Potassium Chloride Carbon Dioxide Anion Gap BUN Creatinine Estim Creat Clear Calc Estimated GFR Glucose POC Capillary Glucose Calcium Phosphorus 3.0 Magnesium 1.5 L Discharge Plan Discharge Attending physician on discharge: Amanda Salcido Consulting providers: Yazmin Kaplan; Samuel Ortega; Carlos Haynes Discharging Clinician: Amanda Salcido Anticipated Discharge Date/Time: 04/07/25 10:11 Patient Disposition: Home Activity: february shower Diet: heart healthy Discharge Instructions: Follow up with urology tomorrow as scheduled. No aspirin or other blood thinners until directed by urology. Follow up with hematology. Check labs this week to follow blood count. Also stopped COq10 for now. Limit activity. No lifting over 5 pounds (a gallon of milk). Walking is ok, or light weights (under 5 pounds while sitting) but avoid more activity until directed by urology Patient Instructions: Antibiotic Form, Heart Failure (GEN) Patient Language: Slovenian Stand Alone Forms: General Discharge Information Follow-up/Referrals: Matt Mills MD [Physician] - Jay Jay Reynoso MD [Primary Care Provider] - Discharge Medications: New magnesium oxide 200 mg magnesium tablet 200 mg PO DAILY Qty: 30 0RF Continued omega-3 fatty acids [Super [place]-3] 1,000 mg capsule 1,000 mg PO DAILY multivitamin [Daily Multi-Vitamin] Tablet 1 tablet PO DAILY Entresto 24-26 mg tablet 1 tablet PO BID Qty: 30 0RF (DME) FreeStyle Drea 2 [place] Misc See Rx Instructions .Route Qty: 1 0RF Rx Instructions: As directed isosorbide mononitrate 60 mg tablet extended release 24 hr 60 mg PO BID Qty: 180 3RF ranolazine 500 mg tablet extended release 12 hr 500 mg PO BID carvedilol [Coreg] 3.125 mg Tablet 3.125 mg PO DAILY Patient Comments: MD told to stop but reduced it to daily as felt it was too much to stop Rx Instructions: must administer with a meal/food insulin glargine [Lantus Solostar U-100 Insulin] 100 unit/mL (3 mL) insulin pen 12 unit subcut QPM sulfamethoxazole-trimethoprim [Bactrim DS] 800-160 mg tablet 1 tablet PO Q12H Qty: 6 0RF tramadol 50 mg tablet 50 mg PO Q6H PRN (Reason: pain) Qty: 20 0RF (DME) OneTouch Verio test strips Strip See Rx Instructions .ROUTE .MEDSUPPLY Qty: 200 3RF Rx Instructions: Use to test blood sugar bid, daily and as directed Trijardy XR 5-2.5-1,000 mg tablet, IR - ER, biphasic 24hr 2 tablet PO QAM Qty: 180 4RF nitroglycerin 0.4 mg tablet, sublingual 0.4 mg SUBLINGUAL Q5M PRN (Reason: chest pain) Qty: 25 2RF Patient Comments: PRN (DME) FreeStyle Drea 2 Sensor Kit See Rx Instructions .Route Qty: 13 1RF Rx Instructions: As directed levothyroxine 100 mcg tablet 100 mcg PO DAILY Qty: 90 1RF pantoprazole 20 mg tablet,delayed release (DR/EC) 20 mg PO QAM 90 Days Qty: 90 3RF (DME) pen needle, diabetic [Comfort EZ Pen [place]] 32 gauge x 5/32 needle See Rx Instructions .Route Qty: 100 3RF Rx Instructions: As directed Changed ferrous sulfate [Feosol] 325 mg (65 mg iron) tablet 325 mg PO DAILY Qty: 30 0RF Patient Comments: Supposed to be TID but takes 1 in AM and that 2 PM Discontinued aspirin 81 mg capsule 81 mg PO DAILY coenzyme Q10 [Co Q-10] 100 mg capsule 100 mg PO DAILY Other Ambulatory Orders: Basic Metabolic Panel (Routine) Timeframe: 1 Week Location: Determined by Patient Ordered By: Amanda Salcido Complete Blood Count with Diff (Routine) Timeframe: 1 Week Location: Determined by Patient Ordered By: Amanda Salcido Magnesium (Routine) Timeframe: 1 Week Location: Determined by Patient Ordered By: Amanda Salcido Date of admission: 04/06/25 04:01 Primary Care Provider: Jay Jay Reynoso Admitting Provider: Jose Zapata Attending physician on admission: Amanda Salcido Condition: Stable Quality VTE Prophylaxis VTE prophylaxis: mechanical ordered Hospitalist MIPS Heart Failure (Exclusion) Patient has history of Heart Transplant or Left Ventricular Assistive Device?: No IF YES, STOP HERE Heart Failure (Qualifier) Patient has current or prior documentation of LVEF less than or equal to 40%, or mod/servere depressed LVSF?: No IF NO, STOP HERE
== END 2025-04-07 12:30 | disposition home or self-care (01) ==
LOC: ANHED 04:18 → ANH2MED 04:54
PROVIDERS: Admitting Provider General Practice; Emergency Provider Emergency Medicine; PCP Family Medicine; Visit Provider Nurse Practitioner Acute Care
DX: T83.098A Other mechanical complication of other urinary catheter, initial encounter (principal); R31.0 Gross hematuria; R07.89 Other chest pain; R25.2 Cramp and spasm; E83.42 Hypomagnesemia; I95.89 Other hypotension; R58 Hemorrhage, not elsewhere classified; D69.6 Thrombocytopenia, unspecified; D50.9 Iron deficiency anemia, unspecified; I25.10 Atherosclerotic heart disease of native coronary artery without angina pectoris; N40.1 Benign prostatic hyperplasia with lower urinary tract symptoms; N13.8 Other obstructive and reflux uropathy; E11.65 Type 2 diabetes mellitus with hyperglycemia; E11.22 Type 2 diabetes mellitus with diabetic chronic kidney disease; N18.9 Chronic kidney disease, unspecified; E11.42 Type 2 diabetes mellitus with diabetic polyneuropathy; E03.9 Hypothyroidism, unspecified; E78.5 Hyperlipidemia, unspecified; K21.9 Gastro-esophageal reflux disease without esophagitis; D46.9 Myelodysplastic syndrome, unspecified; Z86.73 Personal history of transient ischemic attack (TIA), and cerebral infarction without residual deficits; Z79.4 Long term (current) use of insulin; Z79.899 Other long term (current) drug therapy; Z88.0 Allergy status to penicillin; Z85.828 Personal history of other malignant neoplasm of skin; Z95.1 Presence of aortocoronary bypass graft; Z96.642 Presence of left artificial hip joint
CPT/HCPCS: 36415; 71045; 80048; 80053; 81001; 82948; 83690; 83735; 84100; 84484; 85025; 85610; 85730; 87086; 93005; 96365; 96366; 96375; 99285; A9270; G0378; J1938; J3475

== ENCOUNTER 2025-04-13 14:59 | Observation (INO) | payer MEDICARE, SELFPAY ==
[2025-04-10 10:46] VITALS: BMI 24.2
--- NOTE | 2025-04-10 11:03 | PC.NURSE ---
Report to the Outpatient Waiting Room, entrance under the green pavilion located off [facility], at time __1100am on date ___04/12/25____. Planned Procedure Time: _1:00pm .? Time changes happen often and if your time is changed the preop area will call you the afternoon before. - You and your visitor will be asked to self-screen and do not enter if you have any COVID symptoms. Please call surgeon if you need to reschedule. - A mask is optional within the hospital at this time. Patients may have clear liquids (water, carbonated beverages, clear teas, apple juice) until 3 hours prior to surgery with a maximum of 20 ounces. - No food from midnight until time of surgery and no smoking, or chewing tobacco (or any form of nicotine). No chewing gum, candy or mints. (1000am) Take only the following medications with a SIP of water on the morning of surgery: ___Coreg, Isosorbide, Levothyroxine, Ranexa, and Ciprofloxin DO NOT STOP ANY OF YOUR OTHER PRESCRIPTION MEDICATIONS PRIOR TO SURGERY EXCEPT THE FOLLOWING Hold all vitamins and supplements for [address] Mills Medications to discontinue per physician NONE Date to take last dose NONE Please no make-up, nail emirati, hairspray, perfume, deodorant, or body powder the day of surgery.? No jewelry (including any body piercings) or valuables the day of surgery, leave them at home.? Please take a shower or bath the night before, or the morning of, surgery with an antibacterial soap.? Wear comfortable, loose fitting clothing.? Overnight bag w him - Jewelry must be removed prior to entering the operating room.? Rings and piercings that are not removed may be cut off. - The hospital will not accept responsibility for valuables.? - Please leave all valuables, including medications, at home the day of surgery. If you are going home after surgery, a licensed charter bus driver must drive you home.? - NO public transportation without another adult if you receive anesthesia. - We recommend that an adult stay with you for 24 hours following discharge. - We also recommend that you do not drive, make important decision, drink alcoholic beverages, or take any drugs that were not prescribed by your health care provider for at least 24 hours after your discharge time. Follow any additional instructions given to you from your surgeon. Telephone instructions given to ____Ingris and asked if any additional questions and then verbalized understanding. Patient advised to call surgeon office or pre surgery nurse liaison [phone] if any additional questions.
[2025-04-12] VITALS (17 sets, daily range): BP systolic 80–127; BP diastolic 49–66; PULSE 53–81; RESP 12–18; TEMP 36.4–37; O2SAT 93–100; BMI 24.3
--- OUTSIDE RECORDS SUMMARY | 2025-04-12 00:35 | XMS_ITS | Encounter Summary ---
Author Organization [facility] Address [address] [place] [address] Phone Care Team Providers Care Track Equipment Operator Name Role Phone Diego Nuenz MD Primary Care Provider Jay Jay Reynoso MD Unavailable [phone] Rosibel Rodrigues DPT Unavailable [phone] Jay Jay Reynoso MD Primary Care Provider [phone] Encounter Details Date Type Department Care Team (Late st Contact Info) Description 07/16/2020 Telephone [facility] Physical Therapy [address] [address] Fidelia Macias, B.A. 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 Gender Identity Not on file Sexual Orientation Not on file documented as of this encounter Plan of Treatment Not on file documented as of this encounter Visit Diagnoses Not on filedocumented in this encounter Care Teams Track Equipment Operator Relationship Specialty Start Date End Date Diego Nunez MD [address] [facility] [address] [place] [address] PCP - General Internal Medicine 11/29/19 09/07/20 Jay Jay Reynoso MD [address] [facility] [address] [place] [address] PCP - General Family Medicine 09/08/20 Jay Jay Reynoso MD [address] [facility] [address] [place] [address] Family Medicine 11/29/19 Rosibel Rodrigues DPT [address] [facility] [address] [place] [address] Physical Therapist Physical Therapy 06/25/20 09/01/20 documented as of this encounter
--- OUTSIDE RECORDS SUMMARY | 2025-04-12 00:35 | XMS_ITS | Encounter Summary ---
Author Organization [facility] Address 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
--- OUTSIDE RECORDS SUMMARY | 2025-04-12 00:35 | XMS_ITS | Clinical Summary ---
Author Organization [facility] [address] [facility] Address [address] [place] [address] Care Team Providers Care Nursery School Teacher Name Role Phone Jay Jay Reynoso MD Unavailable [phone] Jay Jay Reynoso MD Primary Care Provider [phone] Allergies Active Allergy Reactions Criticality Noted Date [...] (100 mg total) by mouth daily Active xsjdddez74-lpn u-Vcmhjizu-hpj al 27 mg iron-1.13 mg-581.92 mg capsule [...] (06/22/2019): Added automatically from request for surgery [id number] Chest pain 06/22/2019 Overview (06/22/2019): Added automatically from request for surgery [id number] Encounters Date Type Department Care Team Description 04/05/2025 Telephone [facility] Cardiology [address] [place] [address] Riccardo Chang MD Leg Swelling; Foot Swelling from Last 3 Months Surgical History Surgery [...] week 08/03/2023 How often do you attend [facility] or latter day services? 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 Gender Identity Not on file Sexual Orientation [...] history exists Medical Devices Implanted Type Area Sky Line Yarder Device Identifier Shelf Expiration Date Model / Serial / Lot [facility] Mobile Location, [place] [id number] Device Closure Angio-Seal Vip Bondek-Plus Polyglyd L70 Cm Od6 Fr Odsec.035 In Vascular - [id number] Implanted:Qty: 1 on 07/19/2019 by Riccardo Chang MD at [facility] 01/22/2020 [id number] / / [employer] Device Closure Vascade Od5 Fr Femoral Artery [id number] - [id number] Implanted:Qty: 1 on 11/04/2022 by Riccardo Chang MD at [facility] 700-500DX-0 5U / / Giron & Nephew/Richco/ Ortho R3 56mm 3 Hole Hip Standard Shell Acetabular [id number] - [id number] Implanted:Qty: 1 on 08/02/2023 by Galileo Klein MD at [facility] Left: Hip [employer] Nephew/Richco/Or tho [id number] 09/16/2031 [id number] / / [id number] G[employer]hew/Richco/ Ortho R3 56mm 40mm 20d Liner Acetabular Xlpe [id number] - [id number] Implanted:Qty: 1 on 08/02/2023 by Galileo Klein MD at [facility] Left: Hip [employer]hew[employer]Richco/Or tho [id number] 05/01/2033 [id number] / / [id number] G[employer]hew[employer]Richco/ Ortho Polarstem Cementless Hip 6 Standard Stem Femoral Titanium Mcintosh [id number] - [id number] Implanted:Qty: 1 on 08/02/2023 by Galileo Klein MD at [facility] Left: Hip [employer]hew[employer]Richco/Or tho [id number] 04/15/2029 [id number] / / [id number] G[employer] Nephew/Richco/ Ortho 40mm Modular Hip Head Femoral Oxinium [id number] - [id number] Implanted:Qty: 1 on 08/02/2023 by Galileo Klein MD at [facility] Left: Hip [employer]hew[employer]Richco/Or tho [id number] 04/29/2033 [id number] / / [id number] G[employer] Nephew/Richco/ Ortho Modular Neck Hip +0mm 12/14 Taper Sleeve Femoral Titanium [id number] - [id number] Implanted:Qty: 1 on 08/02/2023 by Galileo Klein MD at [facility] Left: Hip [employer]hew/Richco/Or tho [id number] 04/25/2033 [id number] / / [id number] Procedures Procedure Name Priority Date/Time Associated Diagnosis Comments POCT LIPID PANEL Routine 01/09/2025 1:48 PM CDT Coronary artery disease of [place] artery of [place] heart with stable angina pectoris EGFR Routine [...] [address] Department [place] [address] from Last 3 Months or Most Recently Relevant to Health Maintenance Insurance [facility] Address: [place] [address] [facility] Address: [place] [phone] Advance Directives For more information, please contact: [phone] * Full Code (Latest Code Status on File) Date Activated Date Inactivated Comments 08/02/2023 9:03 AM 08/03/2023 8:37 PM Care Teams Nursery School Teacher Relationship Specialty Start Date End Date Jay Jay Reynoso MD PCP - General Family Medicine 09/08/20 Jay Jay Reynoso MD Family Medicine 11/29/19
--- OUTSIDE RECORDS SUMMARY | 2025-04-12 00:35 | XMS_ITS | Encounter Summary ---
Author Organization [facility] Address [address] [place] [address] Care Team Providers Care Oyster Bed Worker Name Role Phone Unavailable Primary Care Provider Unavailabl e Encounter Details Date Type Department Care Team (Late st Contact Info) Description 12/14/1999 Outpatient Historical Division of Neurology [address] [facility] [address] [address] (Excluded Provider) [place] [address] [facility] [address] [place] [address] Social History Tobacco Use Types Packs/Day Years Used Date Smoking Tobacco: Never Assessed Sex and Gender Information Value Date Recorded Sex Assigned at Not on file 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
--- OUTSIDE RECORDS SUMMARY | 2025-04-12 00:35 | XMS_ITS | Encounter Summary ---
Author Organization [facility] Address [address] [place] [address] Care Team Providers Care Splicer Machine Operator Name Role Phone Unavailable Primary Care Provider Unavailabl e Encounter Details Date Type Department Care Team (Late st Contact Info) Description 01/26/2000 Outpatient Historical Division of Neurology [address] [facility] [address] [address] (Excluded Provider) [place] [address] [facility] [address] [place] [address] Social History Tobacco Use Types Packs/Day Years Used Date Smoking Tobacco: Never Assessed Sex and Gender Information Value Date Recorded Sex Assigned at Not on file 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
--- OUTSIDE RECORDS SUMMARY | 2025-04-12 00:35 | XMS_ITS | Encounter Summary ---
Author Organization [facility] Address 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
--- OUTSIDE RECORDS SUMMARY | 2025-04-12 00:35 | XMS_ITS | Encounter Summary ---
Author Organization [facility] Address 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
--- OUTSIDE RECORDS SUMMARY | 2025-04-12 00:35 | XMS_ITS | Referral Summary ---
Author Organization [facility] [address] [facility] Address [address] [place] [address] Care Team Providers Care Fishing Worker Name Role Phone Jay Jay Reynoso MD Unavailable [phone] Jay Jay Reynoso MD Primary Care Provider [phone] Encounters Date Type Department Care Team Description 04/05/2025 Telephone [facility] Cardiology [address] [facility] [address] [place] [address] Riccardo Chang MD Leg Swelling; Foot Swelling from Last 3 Months Allergies Active Allergy [...] (100 mg total) by mouth daily Active mumvxezl12-saw c-Pwdvzzhi-jtw al 27 mg iron-1.13 mg-581.92 mg capsule [...] (06/22/2019): Added automatically from request for surgery [id number] Chest pain 06/22/2019 Overview (06/22/2019): Added automatically from request for surgery [id number] Social History Tobacco Use Types Packs/Day Years [...] How often do you attend chur or jew services? 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 Gender Identity Not on file Sexual Orientation [...] on file Medical Devices Implanted Type Area Cytotechnologist/Cytology Supervisor Device Identifier Shelf Expiration Date Model / Serial / Lot Appcelerator [id number] Device Closure Angio-Seal Vip Bondek-Plus Polyglyd L70 Cm Od6 Fr Odsec.035 In Vascular - [id number] Implanted:Qty: 1 on 07/19/2019 by Riccardo Chang MD at [facility] 01/22/2020 [id number] / / [employer] Device Closure Vascade Od5 Fr Femoral Artery [id number] - [id number] Implanted:Qty: 1 on 11/04/2022 by Riccardo Chang MD at [facility] 700-500DX-0 5U / / Giron & Nephew/Richco/ Ortho R3 56mm 3 Hole Hip Standard Shell Acetabular [id number] - [id number] Implanted:Qty: 1 on 08/02/2023 by Galileo Klein MD at [facility] Left: Hip G[employer] Nephew/Richco/Or tho [id number] 09/16/2031 [id number] / / [id number] Giron [employer] Nephew/Richco/ Ortho R3 56mm 40mm 20d Liner Acetabular Xlpe [id number] - [id number] Implanted:Qty: 1 on 08/02/2023 by Galileo Kleni MD at [facility] Left: Hip G[employer] Nephew/Richco/Or tho [id number] 05/01/2033 [id number] / / [id number] Giron [employer] Nephew/Richco/ Ortho Polarstem Cementless Hip 6 Standard Stem Femoral Titanium Mcintosh [id number] - [id number] Implanted:Qty: 1 on 08/02/2023 by Galileo Klein MD at [facility] Left: Hip G[employer]hew/Richco/Or tho [id number] 04/15/2029 [id number] / / [id number] Giron [employer] Nephew/Richco/ Ortho 40mm Modular Hip Head Femoral Oxinium [id number] - [id number] Implanted:Qty: 1 on 08/02/2023 by Galileo Klein MD at [facility] Left: Hip G[employer] Nephew/Richco/Or tho [id number] 04/29/2033 [id number] / / [id number] Giron [employer] Nephew/Richco/ Ortho Modular Neck Hip +0mm 12/14 Taper Sleeve Femoral Titanium [id number] - [id number] Implanted:Qty: 1 on 08/02/2023 by Galileo Klein MD at [facility] Left: Hip G[employer]hew/Richco/Or tho [id number] 04/25/2033 [id number] / / [id number] Procedures Procedure Name Priority Date/Time Associated Diagnosis Comments POCT LIPID PANEL Routine 01/09/2025 1:48 PM CDT Coronary artery disease of [place] artery of [place] heart with stable angina pectoris EGFR Routine [...] LAB BLOOD ORDERABLES Final Res ult [facility] [address] [facility] Department [place] [address] from Last 3 Months or Most Recently Relevant to Health Maintenance Insurance [facility] MEDICARE ADVANTAGE [facility] MED[facility] ADVANTAGE Advance Directives For more information, please contact: [phone] * Full Code (Latest Code Status on File) Date Activated Date Inactivated Comments 08/02/2023 9:03 AM 08/03/2023 8:37 PM Care Teams Fishing Worker Relationship Specialty Start Date End Date Jay Jay Reynoso MD PCP - General Family Medicine 09/08/20 Jay Jay Reynoso MD Family Medicine 11/29/19
--- OUTSIDE RECORDS SUMMARY | 2025-04-12 00:35 | XMS_ITS | Encounter Summary ---
Author Organization [facility] Address [address] [place] [address] Care Team Providers Care Infection Control Specialist Name Role Phone Unavailable Primary Care Provider Unavailabl e Encounter Details Date Type Department Care Team (Late st Contact Info) Description 11/13/1999 Outpatient Historical Division of [facility] [address] [facility] [address] [address] (Excluded Provider) [place] [address] [facility] [address] [place] [address] Social History Tobacco Use Types Packs/Day Years Used Date Smoking Tobacco: Never Assessed Sex and Gender Information Value Date Recorded Sex Assigned at Not on file Legal Sex Male 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
--- OUTSIDE RECORDS SUMMARY | 2025-04-12 00:35 | XMS_ITS | Clinical Summary ---
Author Organization [facility] Address [address] [place] [address] [place] [address] Care Team Providers Care Spindle Carver Name Role Phone Unavailable Primary Care Provider Unavailabl e Social History Tobacco Use Types Packs/Day Years Used Date Smoking Tobacco: Never Assessed Sex and Gender Information Value Date Recorded Sex Assigned at Not on file Legal Sex Male 4:08 AM BARBACK Gender Identity Not on file Sexual Orientation [...] VACCINE (#1) [address] [place] [address] [facility] [address] [facility] [place] [address]
--- OUTSIDE RECORDS SUMMARY | 2025-04-12 00:35 | XMS_ITS | Clinical Summary ---
Author Organization [facility] Address [address] [place] [address] Care Team Providers Care Direct Of Real Estate Name Role Phone Jay Jay Ryenoso MD Primary Care Provider [phone] Source Comments [facility],non-[facility] Affiliates and Associated Physician Practices is amultiple site organization consisting of ambulatory clinics and hospital sitesin [place], [place] and [place]. This disclosure is being madepursuant to the Care Everywhere program and may not contain all information available regarding this patient. 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 Gender Identity Male 04/11/2021 8:06 AM CDT Sexual Orientation Not on file Last Filed Vital Signs Vital Sign Reading Time Taken Comments Blood Pressure 107/71 12/22/2022 2:45 PM INTERIOR DESIGNER Pulse 72 12/22/2022 2:45 PM INTERIOR DESIGNER Temperature 36.8 C (98.2 F) 12/22/2022 2:45 PM INTERIOR DESIGNER Respiratory Rate 16 12/22/2022 2:45 PM INTERIOR DESIGNER Oxygen Saturation 98% 12/22/2022 2:45 PM INTERIOR DESIGNER Inhaled Oxygen Concentration - - Weight 68 kg (150 lb) 12/22/2022 10:19 AM INTERIOR DESIGNER Height 165.1 cm (5' 5) 12/22/2022 9:57 AM INTERIOR DESIGNER Body Mass Index 24.96 12/22/2022 9:57 AM INTERIOR DESIGNER Plan of Treatment Health Maintenance Due Date [...] to complete this topic Insurance [address] [place] [place] [id number] [place] [address] [place] [address] [facility] MANAGED MEDICARE ADV SELF PAY NO INSURANCE Member Subscriber Plan / Payer (Ef fective for All Dates) Name:AshleyDarien perez Member ID:Not on file Relation to Subscriber:Not on file Name:DARIEN RAMIREZ Subscriber ID:Not on file (Home) Address: [address] [place] [address] [place] [address] Payer ID:Not on file Group ID:Not on file Type:Self Pay Address: [place] SELF PAY NO INSURANCE Member Subscriber Plan / Payer (Ef fective for All Dates) Name:AshleyDarien Member ID:Not on file Relation to Subscriber:Not on file Name:ASHLEYDARIEN Subscriber ID:Not on file Address: [address] [place] [address] Payer ID:Not on file Group ID:Not on file Type:Self Pay Address: [facility] MANAGED MEDICARE ADV SELF PAY NO INSURANCE Member Subscriber Plan / Payer (Ef fective for All Dates) Name:Darien Ramirez Member ID:Not on file Relation to Subscriber:Not on file Name:DARIEN RAMIREZ Subscriber ID:Not on file Address: [address] [place] [address] Payer ID:Not on file Group ID:Not on file Type:Self Pay Address: [facility] MANAGED MEDICARE ADV SELF PAY NO INSURANCE Member Subscriber Plan / Payer (Ef fective for All Dates) Name:Darien Ramirez Member ID:Not on file Relation to Subscriber:Not on file Name:DARIEN RAMIREZ Subscriber ID:Not on file Address: [address] [place] [address] Payer ID:Not on file Group ID:Not on file Type:Self Pay Address: [facility] MANAGED MEDICARE ADV Care Teams Direct Of Real Estate Relationship Specialty Start Date End Date Jay Jay Reynoso MD [facility] [place] [address] PCP - General 03/29/12
--- NOTE | 2025-04-12 10:54 | WPDANESEPPF ---
Anes - Initial Pre Proc Eval Procedure: Operation Date: 04/12/25 12:00 Proposed Procedures p Trans Urethral Resection Prostate - Matt Mills MD Date/Time: 04/12/25 10:54 Surgeon: Matt Mills MD Pre Op Diagnosis: bph, gross hematuria with clots Patient Data Age: 79 Gender: M Height: 1.65 m Weight: 66 kg Allergies Allergy/AdvReac Type Severity Reaction Status Date / Time Penicillins Allergy Unknown Hives Verified 04/10/25 10:39 Home Medications ?Medication ?Instructions ?Recorded ?Confirmed ?Type multivitamin (Daily Multi-Vitamin 1 tablet PO DAILY 11/27/20 04/10/25 History tablet) omega-3 fatty acids 1,000 mg 1,000 mg PO DAILY 11/27/20 04/10/25 History capsule (Super [place]-3) ranolazine 500 mg tablet,extended 500 mg PO BID 10/13/22 04/10/25 History release,12 hr sacubitril 24 mg-valsartan 26 mg 1 tablet PO BID #30 tabs 11/15/22 04/10/25 Rx tablet (Entresto) blood sugar diagnostic (OneTouch #200 ea 01/05/23 04/10/25 Rx Verio test strips) carvedilol 3.125 mg tablet (Coreg) 3.125 mg PO DAILY 03/17/23 04/10/25 History flash glucose scanning reader #1 ea 08/31/23 04/10/25 Rx (FreeStyle Drea 2 [place]) isosorbide mononitrate 60 mg 60 mg PO BID #180 tabs 12/26/23 04/10/25 Rx tablet,extended release 24 hr empagliflozin 5 mg-linagliptin 2.5 2 tablet (2 x 5-2.5-1,000 mg) PO 06/18/24 04/10/25 Rx mg-metformn ER 1,000 mg QAM #180 ea tablet,24hr (Trijardy XR) nitroglycerin 0.4 mg sublingual 0.4 mg sublingual Q5M PRN chest 09/28/24 04/10/25 Rx tablet pain #25 tabs flash glucose sensor (FreeStyle #13 ea 01/21/25 04/10/25 Rx Drea 2 Sensor kit) levothyroxine 100 mcg tablet 100 mcg PO DAILY #90 tabs 01/22/25 04/10/25 Rx insulin glargine 100 unit/mL (3 12 unit subcut QPM 03/10/25 04/10/25 History mL) subcutaneous pen (Lantus Solostar U-100 Insulin) pantoprazole 20 mg tablet,delayed 20 mg PO QAM 3 months #90 tabs 03/26/25 04/10/25 Rx release ferrous sulfate 325 mg (65 mg 325 mg PO DAILY #30 tabs 04/07/25 04/10/25 Rx iron) tablet (Feosol) magnesium oxide 200 mg PO DAILY #30 tabs 04/07/25 04/10/25 Rx ciprofloxacin HCl 500 mg tablet 500 mg PO Q12H 04/10/25 04/10/25 History pen needle, diabetic 32 gauge x #100 ea 04/10/25 Rx 5/32 (Comfort EZ Pen [place]) Patient hx anesthesia problems: none Family hx anesthesia problems: none Results Review: All pre-operative results and documents have been reviewed as part of the pre-operative evaluation. 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 Code status: Full code. Smoking status: Never smoker Second hand tobacco smoke exposure: No Alcohol intake: current Drinks per week: 1 Alcohol use details: 1 per month Substance use: never Substance use type: does not use Do You Feel Safe in your Home?: Yes Lack of Transportation: No Lack of Food: Never True Current Housing: I Have Housing Concerned About Future Housing: No Difficulty Paying Gas/Electric Bills: No Difficulty Paying for Meds: No Currently Unemployed: No Education: Bachelor's Degree Difficulty w/ Childcare or Family Care: No Living arrangements: with family Additional living arrangements comments: 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: No Anes - Eval Final PreProcedure Day of Procedure 04/12/25 10:54 Patient weight: normal Heart: regular rate and rhythm Lungs: clear to auscultation Airway: Mallampati scale class II Neurological: alert and oriented Last oral intake: >/= 8 hours ASA classification: IV Emergent: no Anesthetic plan: proceed Anesthesia type and monitoring: general LMA and standard monitoring Results Review: All pre-operative results and documents have been reviewed as part of the pre-operative evaluation. Informed Consent: The patient's anesthetic plan and its attendant risks and benefits were discussed with the patient/family/POA. Questions were solicited and answers provided to the satisfaction of the patient/family/POA.
[2025-04-12 11:08] LABS: Hematocrit 21.4 % (42.0-52.0)
[2025-04-12 11:10] LABS: Glucose Point of Care 158 mg/dl (65-105)
[2025-04-12 11:15] LABS: Hemoglobin 6.9 g/dL (14.0-18.0)
--- NOTE | 2025-04-12 11:29 | PM.IMHP ---
H&P: HPI History of Present Illness Date/Time: 04/12/25 11:29 Chief Complaint: Gross hematuria Narrative: 79-year-old male with chronic indwelling Webber was had repeated episodes of gross hematuria with clot retention. He is now here for cystoscopy with clot evacuation, possible TURP of his prostate as this is the likely source of bleeding. 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 Chronic kidney disease Diabetic peripheral neuropathy Iron deficiency anemia Osteoarthritis Hypothyroidism Gastroesophageal reflux disease Coronary artery disease 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 Code status: Full code. Smoking status: Never smoker Second hand tobacco smoke exposure: No Alcohol intake: current Drinks per week: 1 Alcohol use details: 1 per month Substance use: never Substance use type: does not use Do You Feel Safe in your Home?: Yes Lack of Transportation: No Lack of Food: Never True Current Housing: I Have Housing Concerned About Future Housing: No Difficulty Paying Gas/Electric Bills: No Difficulty Paying for Meds: No Currently Unemployed: No Education: Bachelor's Degree Difficulty w/ Childcare or Family Care: No Living arrangements: with family Additional living arrangements comments: 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: No Meds Home Medications and Allergies Home Medications ?Medication ?Instructions ?Recorded ?Confirmed ?Type multivitamin (Daily Multi-Vitamin 1 tablet PO DAILY 11/27/20 04/10/25 History tablet) omega-3 fatty acids 1,000 mg 1,000 mg PO DAILY 11/27/20 04/10/25 History capsule (Super [place]-3) ranolazine 500 mg tablet,extended 500 mg PO BID 10/13/22 04/10/25 History release,12 hr sacubitril 24 mg-valsartan 26 mg 1 tablet PO BID #30 tabs 11/15/22 04/10/25 Rx tablet (Entresto) blood sugar diagnostic (OneTouch #200 ea 01/05/23 04/10/25 Rx Verio test strips) carvedilol 3.125 mg tablet (Coreg) 3.125 mg PO DAILY 03/17/23 04/10/25 History flash glucose scanning reader #1 ea 08/31/23 04/10/25 Rx (FreeStyle Drea 2 [place]) isosorbide mononitrate 60 mg 60 mg PO BID #180 tabs 12/26/23 04/10/25 Rx tablet,extended release 24 hr empagliflozin 5 mg-linagliptin 2.5 2 tablet (2 x 5-2.5-1,000 mg) PO 06/18/24 04/10/25 Rx mg-metformn ER 1,000 mg QAM #180 ea tablet,24hr (Trijardy XR) nitroglycerin 0.4 mg sublingual 0.4 mg sublingual Q5M PRN chest 09/28/24 04/10/25 Rx tablet pain #25 tabs flash glucose sensor (FreeStyle #13 ea 01/21/25 04/10/25 Rx Drea 2 Sensor kit) levothyroxine 100 mcg tablet 100 mcg PO DAILY #90 tabs 01/22/25 04/10/25 Rx insulin glargine 100 unit/mL (3 12 unit subcut QPM 03/10/25 04/10/25 History mL) subcutaneous pen (Lantus Solostar U-100 Insulin) pantoprazole 20 mg tablet,delayed 20 mg PO QAM 3 months #90 tabs 03/26/25 04/10/25 Rx release ferrous sulfate 325 mg (65 mg 325 mg PO DAILY #30 tabs 04/07/25 04/10/25 Rx iron) tablet (Feosol) magnesium oxide 200 mg PO DAILY #30 tabs 04/07/25 04/10/25 Rx ciprofloxacin HCl 500 mg tablet 500 mg PO Q12H 04/10/25 04/10/25 History pen needle, diabetic 32 gauge x #100 ea 04/10/25 Rx (Comfort EZ Pen [place]) Allergies Allergy/AdvReac Type Severity Reaction Status Date / Time Penicillins Allergy Unknown Hives Verified 04/12/25 10:55 Exam Const: General: cooperative and comfortable Resp: Effort & Inspection: normal respiratory effort Cardio: Rate: regular rate Rhythm: regular rhythm H&P: Results Labs Labs: Short CBC 04/12/25 Range/Units 10:42 Hgb 6.9 L* (14.0-18.0) g/dL Hct 21.4 L (42.0-52.0) % Assessment and Plan Assessment and plan (1) Gross hematuria: Code(s): R31.0 - Gross hematuria Status: Acute Assessment and Plan: Proceed with transurethral resection of prostate.
--- NOTE | 2025-04-12 11:32 | WPDHPUPDATE1 ---
History and Physical Update Update Date/Time: 04/12/25 11:32 History and Physical has been reviewed, including an updated exam of the patient. There are NO changes in the patient's condition. Risks, benefits, and alternatives have been discussed and questions answered. Patient agrees to proceed with procedure.
[2025-04-12] MEDS: LACTATED RINGERS 1,000 ML 30 ML IV CONT (11:53)
[2025-04-12] MEDS: ceFAZolin 2 GM/D5W 50 ML 2 GM/50 ML BAG IVPB (12:00)
--- NOTE | 2025-04-12 12:07 | S_PTH ---
PATIENT: Darien Guzman LOC: [id number] #:[id number] AGE/SX: 79/M ROOM: 253 RE04/13/[address]: Carlitos Manjarrez MD : [id number] BED: 01 DIS: 04/15/2025 SPEC #: [id number] RECD: 04/15/25 07:52 STATUS: [place]AT[place] REJonah #: [id number] VINCENT: 04/12/25 12:[address]: Gene,Matt Rao DEPT: [facility] Surgical RECD BY: Majo San ENTERED: 04/15/25 07:52 SP TYPE: Surgical OTHR DR: DO Jay Jay Graham MD Tissues: A - Prostate Turp Procedures: Hematoxylin and Eosin Stain Gross and Microscopic Level 4
[2025-04-12] MEDS: LIDOCAINE 2% GEL UROJET 10 ML PKG MUCOUS MEM (12:14)
--- NOTE | 2025-04-12 13:26 | W.PM.PROC2 ---
Procedure Note - Detailed Date of Procedure 04/12/25 Pre-op Diagnosis bph, gross hematuria with clots, urinary retention Post-op Diagnosis Same Procedure Performed Cystoscopy with transurethral resection of prostate, complex Webber catheter placement Surgeon Matt Mills MD Anesthesia General Description of Procedure Patient was taken to the operative suite correctly identified. Once anesthesia was obtained was placed in dorsal lithotomy position and prepped draped usual sterile fashion. Twenty-seven [place] resectoscope was inserted in the bladder. The patient has an extremely enlarged median lobe. I was unable to visualize the orifices at this time. I went ahead and resected the lobe 1st and then the lateral lobes from the bladder neck to the vera. Chips were sent for analysis. At termination to could see the ureteral orifices. External sphincter was intact. 2% viscous lidocaine was inserted into the urethra. Twenty-four [address] was [address] connected to continuous bladder irrigation. Patient will be admitted for continuous bladder irrigation. Will be discharged home when ready with a Webber catheter. Will look into why he had the catheter in the 1st place and make a decision regarding voiding trial versus obtaining an EP 1. This completes dictation. Please send a copy of op note to office Estimated Blood Loss 75 Drains Yes Packing No Pathology Yes Condition Stable Disposition PACU
[2025-04-12] MEDS: fentaNYL CITRATE INJ (*CRX) 100 MCG/2 ML VIAL 25 MCG IV PUSH ×2 (14:19→14:45)
[2025-04-12 14:46] LABS: Glucose Point of Care 97 mg/dl (65-105)
--- NOTE | 2025-04-12 15:18 | ADMGEN ---
This patient, Darien Guzman, was admitted to Medical Room 253-01. Patient/family oriented to hospital policies and general routines including ID bracelet, bed and alarms, visiting hours, pain management, procedures, bathroom and other care routines, personal items, smoking policy, room service/diet, and visiting hours. Information on how to activate the Rapid Response Team has been discussed. Patient/Family are encouraged to report perceived risks to care and to ask questions if they do not understand what they are told or what they should do.
[2025-04-12] MEDS: HYDROcodone/acetaminophen (*CRX) 5-325 MG TABLET 1 TAB PO (15:50)
[2025-04-12 17:01] LABS: Glucose Point of Care 126 mg/dl (65-105)
[2025-04-12] MEDS: INSULIN GLARGINE (*BKC) 100 UNITS/ML 12 UNITS SUB-Q (17:40)
[2025-04-12] MEDS: ISOSORBIDE MONONITRATE 60 MG TAB.ER.24H PO (17:40)
[2025-04-12] MEDS: DOCUSATE SODIUM 100 MG CAPSULE PO (17:40)
[2025-04-12 20:06] LABS: Mean Corpuscular HGB Conc 32.4 g/dl (32-36); Mean Corpuscular Hemoglobin 37.1 pg (26-34); Mean Corpuscular Volume 114.6 fl (80-100); Mean Platelet Volume 9.6 fl (7.4-10.4); Platelet Count Result 149 k/mm3 (150-375); Red Blood Count 1.78 M/mm3 (4.6-6.20); Red Cell Distribution Width 14.7 % (11.5-14.5); White Blood Count 3.6 K/mm3 (4.5-10.0)
[2025-04-12 20:08] LABS: Hematocrit 20.4 % (42.0-52.0); Hemoglobin 6.6 g/dL (14.0-18.0)
[2025-04-12 20:15] LABS: INR 1.2; Prothrombin Time 15.2 Seconds (11.1-14.7)
[2025-04-12 20:16] LABS: Partial Thromboplastin Time 31.1 Seconds (22.3-36.8)
[2025-04-12 20:19] LABS: Anion Gap 10 mmol/L (4-12); Blood Urea Nitrogen 28 mg/dL (9-20); Calcium 8.9 mg/dL (8.4-10.2); Carbon Dioxide 26 mmol/L (22-30); Chloride 104 mmol/L (98-107); Estimated CRCL calculation 38 ml/min; Estimated Glomerular Filt Rate 58; Glucose 100 mg/dL (65-110); Potassium 4.1 mmol/L (3.4-5.0); Sodium 140 mmol/L (137-145)
[2025-04-12] MEDS: RANOLAZINE 500 MG TAB.ER.12H PO (20:24)
[2025-04-12] MEDS: SACUBITRIL/VALSARTAN 24-26 MG TABLET 1 TAB PO (20:24)
[2025-04-12] MEDS: CEPHALEXIN 500 MG CAPSULE PO (20:24)
[2025-04-12 20:28] LABS: Glucose Point of Care 100 mg/dl (65-105)
--- NOTE | 2025-04-12 22:07 | P.CONIM_ITS ---
Assessment and Plan Assessment and plan (1) Status post recent transurethral resection of prostate: Code(s): Z98.890 - Other specified postprocedural states Status: Acute (2) Acute on chronic blood loss anemia: Code(s): D62 - Acute posthemorrhagic anemia Status: Acute (3) Myelodysplastic syndrome: Code(s): D46.9 - Myelodysplastic syndrome, unspecified Status: Acute (4) Pancytopenia: Code(s): D61.818 - Other pancytopenia Status: Acute (5) BPH (benign prostatic hyperplasia): Qualifiers: Lower urinary tract symptom detail: urinary obstruction Lower urinary tract symptom presence: symptoms present Qualified Code(s): N40.1 - Benign prostatic hyperplasia with lower urinary tract symptoms; N13.8 - Other obstructive and reflux uropathy Code(s): N40.0 - Benign prostatic hyperplasia without lower urinary tract symptoms Status: Acute (6) CKD (chronic kidney disease), stage III: Qualifiers: Chronic kidney disease stage 3 subtype: stage 3a (GFR 45-59) Qualified Code(s): N18.31 - Chronic kidney disease, stage 3a Code(s): N18.30 - Chronic kidney disease, stage 3 unspecified Status: Acute (7) Insulin dependent type 2 diabetes mellitus: Code(s): E11.9 - Type 2 diabetes mellitus without complications; Z79.4 - assisted (current) use of insulin Status: Acute (8) Coronary artery disease: Qualifiers: Associated angina: without angina Coronary Disease-Associated Artery/Lesion type: [place] artery [place] vs. transplanted heart: [place] heart Qualified Code(s): I25.10 - Atherosclerotic heart disease of [place] coronary artery without angina pectoris Code(s): I25.10 - Atherosclerotic heart disease of [place] coronary artery without angina pectoris Status: Acute (9) GERD (gastroesophageal reflux disease): Qualifiers: Esophagitis bleeding: without hemorrhage Esophagitis presence: with esophagitis Qualified Code(s): K21.00 - Gastro-esophageal reflux disease with esophagitis, without bleeding Code(s): K21.9 - Gastro-esophageal reflux disease without esophagitis Status: Acute (10) Hypothyroidism: Qualifiers: Hypothyroidism type: unspecified Qualified Code(s): E03.9 - Hypothyroidism, unspecified Code(s): E03.9 - Hypothyroidism, unspecified Status: Acute (11) Hypotension due to blood loss: Code(s): I95.89 - Other hypotension; R58 - Hemorrhage, not elsewhere classified Status: Acute Plan Patient has acute on chronic anemia. Patient's underlying cause of anemia is multifactorial due to myelodysplastic syndrome and iron deficiency anemia due to chronic blood loss with recurrent episodes of hematuria due to prostate issues for which patient underwent TURP today. Patient's hemoglobin 5 days prior to admission was 7.1. Postop hemoglobin was 6.9. Patient does have noted pancytopenia on prior labs likely due to his myelodysplastic process. But would like to rule out any component of coagulopathy or thrombocytopenia making patient's postoperative blood-loss worse. Subsequently a stat CBC was ordered which demonstrated stable leukopenia and improved platelet count from baseline but hemoglobin had trended further downward to 6.6. Type and cross was obtained and will transfuse the patient 1 unit packed red blood cells. Will repeat CBC in a.m.. Patient is hemodynamically stable as far as vitals. He is not currently on any anti-platelet medications or blood thinners. Coag panel was obtained and was normal except for mildly elevated PT. repeat H&H is already been ordered for a.m. per primary service. Will resume iron supplement on discharge. Patient no hypotension just prior to initiation of blood transfusion. Presumed to be due to acute on chronic anemia. Patient although still mildly hypotensive for the most part has maintain maps 60-65 and is still having good urine output and mentating appropriately. He is not have any tachycardia or other signs of hemodynamic instability. He has asymptomatic while at rest. Although it does sound like he has been having some symptomatic anemia resulting in his decreased day-to-day activities more recently. Specially since his last hospital stay. Patient's repeat hemoglobin is still just at 7 and given his hypotension this morning out give the patient an additional 2 units of packed red blood cells for a total of 3 units. Postoperative management of TURP including catheter management per primary service. Monitor urine output closely. Patient's kidney function is stable. Avoid toxic medications. Patient does have insulin-dependent diabetes mellitus. Patient's glucoses were in the 150s postop. The patient received his evening Lantus at 18:00. Patient's glucoses are now low normal. Will need to monitor closely. Will add hypoglycemia protocol with Accu-Cheks a.c. HS. Will check random glucose around 01:00 to ensure patient is not hypoglycemic as he may have decreased appetite postop. Will provide low-dose sliding scale insulin as needed. Oral hypoglycemics on hold. Patient does have history of coronary disease which is asymptomatic. Will continue patient's home Ranexa Entresto and Imdur. P.r.n. nitro will be continued as well. Blood pressures are stable. Will continue home PPI therapy. Continue home thyroid supplement. MEDICAL DECISION MAKING NARRATIVE -Patient seen and examined at bedside -Collaborated with patient's nurse at the bedside in detail and addressed all concerns -Labs, electrolytes, radiology, investigations and test results reviewed -ED/Consult/Nursing/Ancilliary notes on the chart reviewed and appreciated -Spoke with patient and answered all questions answered HPI Date of Consult Consult date: 04/13/25 Requesting Physician: Matt Mills MD Primary Care Provider: Jay Jay Reynoso MD Consult Narrative Narrative: Date and time of patient contact: 04/13/2025 at 00:15 Darien Guzman is a 79 year old male with a past medical history of mild dysplasia with chronic pancytopenia, coronary artery disease, essential hypertension diastolic dysfunction, type 2 diabetes mellitus on insulin therapy, hypothyroidism, GERD and BPH who was admitted for scheduled TURP and is being observed postop on with CBI. Patient underwent procedure due to recurrent episodes of hematuria that was complicating his chronic Webber catheter. He has had a chronic Webber catheter for the last 1.5 years approximately. He kept having recurrent ER visits and was admitted 3 times since March 10 due to hematuria. Patient had elected to go undergo TURP. Patient had reported 75 mL of blood loss and procedure was uncomplicated. Postop hemoglobin a drop from patient's baseline of 7.1-6.9 and then later to 6.6. Patient's preop hemoglobin was from 5 days prior. Patient has had a significant drop in his hemoglobin since February. His usual baseline hemoglobin is around 10 any dropped to hemoglobin 8.3 with his hospital stay on March 28. He denied having any shortness of breath or dyspnea on exertion but does admit he has been significantly less active over recent weeks. He usually coughs frequently and has not been able to do so. Denies any chest pain or palpitations. He does have known heart murmur. He denies orthopnea or paroxysmal nocturnal dyspnea. His blood pressures have been stable since surgery as of the time of my review of the vitals. The patient's home antihypertensives had been resumed by Urology. Evidently patient's blood pressures were low just prior to my evaluation but they had not been documented by nursing staff yet. Patient's blood pressures were as low as 86/50. The patient received blood transfusion. Patient's blood pressures were variable throughout transfusion but stayed in the low 90s to upper 80s systolic. He was not tachycardic. He remained asymptomatic. At the time of my evaluation the patient was quite animated sitting completely upright in bed and comfortable. He denied any complaints. He reported good appetite. Patient was actively receiving transfusion that I had ordered prior to my physical evaluation. He reports that he does not think he has ever had a blood transfusion previously. Review of Systems 2 Review of Systems: 12 systems were reviewed with pertinent positives and negatives per HPI. Except as documented in the HPI, all other systems were reviewed and are negative. 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 Actinic keratoses Onychomycosis Tubular adenoma of colon Gastritis Reducible left inguinal hernia Eosinophilic esophagitis Memory loss Urinary obstruction Colon polyp Chronic kidney disease Diabetic peripheral neuropathy Iron deficiency anemia Osteoarthritis Hypothyroidism Gastroesophageal reflux disease Coronary artery disease Insulin dependent type 2 diabetes mellitus Myelodysplastic syndrome Transient ischemic attack (2019) Hearing loss Vitamin B12 deficiency Surgical History Surgical History (Updated 04/13/25 @ 07:17 by Preeti Macias DO) History of left hip replacement Hx of hernia repair History of arthroscopy of right knee History of colonoscopy with polypectomy History of cardiac catheterization History of quadruple bypass (1996) Family History Family History Father Cerebrovascular accident Mother due to natural causes Son Diabetes mellitus Social History Social History (Updated 04/13/25 @ 07:18 by Preeti Macias DO) Social History: He has been 3 times. He got from his 3rd but then shortly thereafter they reunited and her still romantic Lluvia involved but live in their own separate homes. 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 He used to play pickleball prior to his hip replacement in 2022. He still golfs regularly. He denies any history of alcohol or tobacco use. Surrogate medical decision maker: Ingris Guzman. Code status: Full code. Smoking status: Never smoker Second hand tobacco smoke exposure: No Alcohol intake: current Drinks per week: 1 Alcohol use details: 1 per month Substance use: never Substance use type: does not use Do You Feel Safe in your Home?: Yes Lack of Transportation: No Lack of Food: Never True Current Housing: I Have Housing Concerned About Future Housing: No Difficulty Paying Gas/Electric Bills: No Difficulty Paying for Meds: No Currently Unemployed: No Education: Bachelor's Degree Difficulty w/ Childcare or Family Care: No Living arrangements: with family Additional living arrangements comments: 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: No Meds Home Medications and Allergies Home Medications ?Medication ?Instructions ?Recorded ?Confirmed ?Type multivitamin (Daily Multi-Vitamin 1 tablet PO DAILY 11/27/20 04/10/25 History tablet) omega-3 fatty acids 1,000 mg 1,000 mg PO DAILY 11/27/20 04/10/25 History capsule (Super [place]-3) ranolazine 500 mg tablet,extended 500 mg PO BID 10/13/22 04/10/25 History release,12 hr sacubitril 24 mg-valsartan 26 mg 1 tablet PO BID #30 tabs 11/15/22 04/10/25 Rx tablet (Entresto) blood sugar diagnostic (OneTouch #200 ea 01/05/23 04/10/25 Rx Verio test strips) carvedilol 3.125 mg tablet (Coreg) 3.125 mg PO DAILY 03/17/23 04/10/25 History flash glucose scanning reader #1 ea 08/31/23 04/10/25 Rx (FreeStyle Drea 2 [place]) isosorbide mononitrate 60 mg 60 mg PO BID #180 tabs 12/26/23 04/10/25 Rx tablet,extended release 24 hr empagliflozin 5 mg-linagliptin 2.5 2 tablet (2 x 5-2.5-1,000 mg) PO 06/18/24 04/10/25 Rx mg-metformn ER 1,000 mg QAM #180 ea tablet,24hr (Trijardy XR) nitroglycerin 0.4 mg sublingual 0.4 mg sublingual Q5M PRN chest 09/28/24 04/10/25 Rx tablet pain #25 tabs flash glucose sensor (FreeStyle #13 ea 01/21/25 04/10/25 Rx Drea 2 Sensor kit) levothyroxine 100 mcg tablet 100 mcg PO DAILY #90 tabs 01/22/25 04/10/25 Rx insulin glargine 100 unit/mL (3 12 unit subcut QPM 03/10/25 04/10/25 History mL) subcutaneous pen (Lantus Solostar U-100 Insulin) pantoprazole 20 mg tablet,delayed 20 mg PO QAM 3 months #90 tabs 03/26/25 04/10/25 Rx release ferrous sulfate 325 mg (65 mg 325 mg PO DAILY #30 tabs 04/07/25 04/10/25 Rx iron) tablet (Feosol) magnesium oxide 200 mg PO DAILY #30 tabs 04/07/25 04/10/25 Rx ciprofloxacin HCl 500 mg tablet 500 mg PO Q12H 04/10/25 04/12/25 History pen needle, diabetic 32 gauge x #100 ea 04/10/25 Rx 5/32 (Comfort EZ Pen [place]) sulfamethoxazole 800 1 tablet PO Q12H #6 tabs 04/12/25 Rx mg-trimethoprim 160 mg tablet (Bactrim DS) tramadol 50 mg tablet 50 mg PO Q6H PRN pain #20 tabs 04/12/25 Rx Allergies Allergy/AdvReac Type Severity Reaction Status Date / Time Penicillins Allergy Unknown Hives Verified 04/12/25 11:51 Vital Signs Vital Signs - 24 hr 04/12/25 11:00 04/12/25 13:30 04/12/25 13:45 Temperature 97.5 F L 98.4 F Pulse Rate 81 78 68 Respiratory Rate 16 18 17 Blood Pressure 120/64 80/49 L 110/52 L Pulse Oximetry 100 100 100 Oxygen Delivery Simple Face Mask Simple Face Mask Oxygen Flow Rate 6 6 04/12/25 14:01 04/12/25 14:15 04/12/25 14:30 Temperature Pulse Rate 65 68 68 Respiratory Rate 17 15 17 Blood Pressure 114/57 L 123/61 117/66 Pulse Oximetry 100 93 97 Oxygen Delivery Room Air Room Air Room Air Oxygen Flow Rate 04/12/25 14:45 04/12/25 15:00 04/12/25 15:24 Temperature Pulse Rate 74 65 53 L Respiratory Rate 12 14 16 Blood Pressure 109/53 L 126/57 L 127/49 L Pulse Oximetry 95 94 94 Oxygen Delivery Room Air Room Air Oxygen Flow Rate 04/12/25 15:54 04/12/25 16:14 04/12/25 16:54 Temperature Pulse Rate 64 62 Respiratory Rate 16 16 Blood Pressure 114/51 L 109/52 L Pulse Oximetry 96 99 Oxygen Delivery Room Air Oxygen Flow Rate 04/12/25 20:54 04/12/25 21:45 04/12/25 21:50 Temperature 98.6 F 98.6 F 98.6 F Pulse Rate 65 65 65 Respiratory Rate 16 16 16 Blood Pressure 110/51 L 110/51 L 110/51 L Pulse Oximetry 98 98 98 Oxygen Delivery Oxygen Flow Rate Exam 2 Narrative: Weight 66.4 kg BMI 24.4 Const: Other: No acute distress, appears younger than stated age, appropriate mood and affect HENMT: Other: Mucous membranes are moist, no oral pharyngeal erythema, good dentition Eyes: Other: Positive conjunctival pallor, no scleral icterus Neck: Other: No JVD, no lymphadenopathy Resp: Other: Clear to auscultation bilaterally, no increased work of breathing Cardio: Other: Regular rate, regular rhythm, 2/6 systolic murmur heard best at the left upper sternal border, no JVD, 2+ bilateral radial pedal pulses GI: Other: Soft, nontender, nondistended, positive bowel sounds : Other: Three way catheter in place with continuous bladder irrigation urine is clear Skin: Other: Darkly tanned, no petechiae, no large areas of bruising Neuro: Other: Patient is alert oriented x4, speech is clear, moderate hearing loss, no localizing neurologic deficits noted during the course of conversation Extrem: Other: No clubbing, cyanosis or edema, normal range of motion of bilateral upper and lower extremity Psych: Other: Jovial, loquacious, appropriate judgment and insight Results Labs 04/13/25 05:48 04/13/25 05:48 Labs: Short CBC 04/12/25 04/12/25 Range/Units 10:42 20:02 WBC 3.6 L (4.5-10.0) K/mm3 Hgb 6.9 L* 6.6 L* (14.0-18.0) g/dL Hct 21.4 L 20.4 L* (42.0-52.0) % Plt Count 149 L (150-375) k/mm3 BMP 04/12/25 20:02 Sodium 140 Potassium 4.1 Chloride 104 Carbon Dioxide 26 BUN 28 H Creatinine 1.20 Glucose 100 Calcium 8.9 Quality VTE Prophylaxis VTE prophylaxis: mechanical ordered (ALEXISs and Ramesh lopes) Hospitalist MIPS Advance Care Plan I have confirmed that the patient's Advanced Care Plan is present, code status is documented, or surrogate decision maker is listed in patient medical record.: Yes Medication Reconciliation I have utilized all available resources to obtain, update and review the patients current medications (includes all prescriptions, OTC, herbals, cannabis, and nutritional supplements).: Yes
[2025-04-13] VITALS (17 sets, daily range): BP systolic 86–129; BP diastolic 28–94; PULSE 62–78; RESP 14–18; TEMP 36–37; O2SAT 96–100
--- NOTE | 2025-04-13 | ECHO_ITS ---
Patient Info Name: Darien Guzman Age: 79 years : 1945 Gender: Male Ht: 65 in Wt: 146 lbs BSA: 1.75 m2 HR: 63 bpm BP: 100 / 59 mmHg Technical Quality: Fair Exam Date: 04/13/2025 2:09 PM Patient Status: O Admit Date: 04/13/2025 Exam Type: CA echo dop color flow w con Complete two-dimensional, color flow and Doppler transthoracic echocardiogram is performed with contrast to opacify the left ventricle and to improve the deliniation of the left ventricle endocardial borders. Mannequin Mold Maker: Jessie Klein Attending Provider: Matt Mills MD Contrast/Agitated Saline Contrast/Ag. Saline: Definity Amount: 2.00 ml Administered By: Jessie Klein Existing IV Access: Yes IV Access Condition: patent with no signs of infiltration Summary 1. Definity contrast administered improved wall motion interpretation. 2. Left ventricular chamber dimension is normal. 3. Left ventricular systolic function is normal, estimated at 55-60. 4. Left ventricular septal wall motion is abnormal with septal motion related to bundle branch block. 5. The left ventricular diastolic function is grade I diastolic dysfunction. 6. E/e' 3 is not elevated. 7. Left atrial chamber dimension is severely enlarged. 8. Right atrial chamber dimension is mildly enlarged. 9. There is mild tricuspid valve regurgitation. 10. No pulmonary hypertension, estimated pulmonary arterial systolic pressure is 29 mmHg. 11. There is mild pulmonic regurgitation. Left Ventricle Definity contrast administered improved wall motion interpretation. Left ventricular chamber dimension is normal. Left ventricular systolic function is normal, estimated at 55-60. Left ventricular septal wall motion is abnormal with septal motion related to bundle branch block. The left ventricular diastolic function is grade I diastolic dysfunction. E/e' 3 is not elevated. Right Ventricle Right ventricular chamber dimension is normal. Right ventricular systolic function is normal. Left Atria Left atrial chamber dimension is severely enlarged. Right Atria Right atrial chamber dimension is mildly enlarged. Aortic Valve The aortic valve is trileaflet. There is no aortic valve stenosis. There is no aortic valve regurgitation. Pulmonic Valve There is mild pulmonic regurgitation. Mitral Valve There is no mitral valve stenosis. There is no mitral valve regurgitation. Tricuspid Valve There is mild tricuspid valve regurgitation. No pulmonary hypertension, estimated pulmonary arterial systolic pressure is 29 mmHg. Pericardium/Pleural There is no pericardial effusion. Inferior Vena Cava Normal inferior vena cava with >50% collapse upon inspiration consistent with normal right atrial pressure, 5 mmHg. Aorta The aortic root size at the sinus of Valsalva is normal. Left Ventricular Outflow Tract Name Value Normal LVOT 2D LVOT Diameter 2.4 cm LVOT Doppler LVOT Peak Velocity 85 cm/s LVOT Peak Gradient 3 mmHg LVOT Mean Gradient 1 mmHg LVOT VTI 19 cm LVOT Stroke Volume 86 ml LVOT CO 5.4 l/min LVOT CI 3.1 l/min/m2 Pulmonic Valve Name Value Normal RVOT Doppler RVOT Peak Velocity 64 cm/s RVOT Peak Gradient 2 mmHg PV Doppler PV Peak Velocity 100 cm/s PV Peak Gradient 4 mmHg PV Regurgitation Doppler CT Peak End Diastolic Velocity 109 cm/s Mitral Valve Name Value Normal MV Diastolic Function MV E Peak Velocity 38 cm/s MV A Peak Velocity 76 cm/s MV E/A 0.5 MV Decel Time (PW) 739 ms MV Annular TDI MV E/e' (Septal) 4.2 MV E/e' (Lateral) 2.9 MV E/e' (Average) 3.6 Tricuspid Valve Name Value Normal TV Regurgitation Doppler TR Peak Velocity 246 cm/s TR Peak Gradient 24 mmHg Estimated PAP/RSVP RA Pressure 5 mmHg <=5 PA Systolic Pressure 29 mmHg <36 RV Systolic Pressure 29 mmHg <36 TV Annular TDI TV Lateral Prisca s' Velocity 7.3 cm/s >=9.5 Aortic Valve Name Value Normal AV Doppler AV Peak Velocity 143 cm/s AV Peak Gradient 8 mmHg AV Area (Cont Eq Patricio) 2.6 cm2 AV DI (Patricio) 0.60 AV Regurgitation 2D LVOT Area 4.4 cm2 Ventricles Name Value Normal LV Dimensions 2D/MM IVS Diastolic Thickness (2D) 1.0 cm 0.6-1.0 LVID Diastole (2D) 5.3 cm 4.2-5.8 LVIW Diastolic Thickness (2D) 1.4 cm 0.6-1.0 LVID Systole (2D) 3.9 cm 2.5-4.0 LVOT Diameter 2.4 cm LV Mass (2D Cubed) 254.65 g 88.00-224.00 LV Mass Index (2D Cubed) 145 g/m2 49-115 Relative Wall Thickness (2D) 0.52 <=0.42 LV Fractional Shortening/Ejection Fraction 2D/MM LV Fractional Shortening (2D) 27 % 25-43 LV EF (2D Teichholz) 53 % LV Diastolic Volume (4C MOD) 167 ml LV EF (4C MOD) 50 % LV Diastolic Volume (2C MOD) 135 ml LV EF (2C MOD) 43 % LV Diastolic Volume (BP MOD) 153 ml 62-150 LV Diastolic Volume Index (BP MOD) 87 ml/m2 34-74 LV Systolic Volume (BP MOD) 82 ml 21-61 LV Systolic Volume Index (BP MOD) 47 ml/m2 11-31 LV EF (BP MOD) 47 % 52-72 LV Diastolic Length (4C) 8.5 cm LV Systolic Length (4C) 7.5 cm LV Stroke Volume (4C MOD) 83 ml Atria Name Value Normal LA Dimensions LA Volume (4C A-L) 81 ml LA Volume (BP A-L) 89 ml RA Dimensions RA Systolic Major [place] Length (4C) 5.4 cm 2.1-2.7 RA Area (4C) 19.2 cm2 <=18.0 Report Signatures
[2025-04-13] MEDS: LEVOTHYROXINE SODIUM 100 MCG TABLET PO (05:36)
[2025-04-13 06:10] LABS: Anion Gap 6 mmol/L (4-12); Blood Urea Nitrogen 27 mg/dL (9-20); Calcium 8.4 mg/dL (8.4-10.2); Carbon Dioxide 27 mmol/L (22-30); Chloride 105 mmol/L (98-107); Estimated CRCL calculation 38 ml/min; Estimated Glomerular Filt Rate 58; Glucose 182 mg/dL (65-110); Magnesium 1.6 mg/dL (1.6-2.3); Potassium 4.4 mmol/L (3.4-5.0); Sodium 138 mmol/L (137-145)
--- NOTE | 2025-04-13 07:43 | PM.IMPN ---
Progress Note: A&P Assessment and Plan (1) Status post recent transurethral resection of prostate: Code(s): Z98.890 - Other specified postprocedural states Status: Acute Assessment and Plan: Underwent TURP 0 04/12 Monitor H&H Monitor HypoNa Complex Webber catheter placement Urology following (2) Acute on chronic blood loss anemia: Code(s): D62 - Acute posthemorrhagic anemia Status: Acute Assessment and Plan: Multifactorial Possible underlying myelodysplastic syndrome Possible to to the recent surgery TURP Dilutional anemia from surgery Blood loss from hematuria Underlying iron deficiency anemia,coagulopathy or thrombocytopenia (3) Myelodysplastic syndrome: Code(s): D46.9 - Myelodysplastic syndrome, unspecified Status: Acute Assessment and Plan: Consult dimpling machine operator/oncologist as outpatient (4) Pancytopenia: Code(s): D61.818 - Other pancytopenia Status: Acute Assessment and Plan: As above (5) BPH (benign prostatic hyperplasia): Qualifiers: Lower urinary tract symptom detail: urinary obstruction Lower urinary tract symptom presence: symptoms present Qualified Code(s): N40.1 - Benign prostatic hyperplasia with lower urinary tract symptoms; N13.8 - Other obstructive and reflux uropathy Code(s): N40.0 - Benign prostatic hyperplasia without lower urinary tract symptoms Status: Acute Assessment and Plan: As above (6) CKD (chronic kidney disease), stage III: Qualifiers: Chronic kidney disease stage 3 subtype: stage 3a (GFR 45-59) Qualified Code(s): N18.31 - Chronic kidney disease, stage 3a Code(s): N18.30 - Chronic kidney disease, stage 3 unspecified Status: Acute Assessment and Plan: -monitor closely during diuresis -Avoid nephrotoxic drugs. -Monitor antihypertensive drug therapy. -Avoid NSAIDs. -Routine CMP monitoring GFR. -Monitor electrolytes especially potassium. -Antibiotic doses depending on creatinine clearance. -Pharmacy does medications. -Cr stable 1.21 appears at baseline -Routine follow-up with Nephrology as an outpatient. (7) Insulin dependent type 2 diabetes mellitus: Code(s): E11.9 - Type 2 diabetes mellitus without complications; Z79.4 - [facility] (current) use of insulin Status: Acute Assessment and Plan: On sliding scale (8) Coronary artery disease: Qualifiers: Associated angina: without angina Coronary Disease-Associated Artery/Lesion type: seminole artery [place] vs. transplanted heart: seminole heart Qualified Code(s): I25.10 - Atherosclerotic heart disease of seminole coronary artery without angina pectoris Code(s): I25.10 - Atherosclerotic heart disease of seminole coronary artery without angina pectoris Status: Acute (9) GERD (gastroesophageal reflux disease): Qualifiers: Esophagitis bleeding: without hemorrhage Esophagitis presence: with esophagitis Qualified Code(s): K21.00 - Gastro-esophageal reflux disease with esophagitis, without bleeding Code(s): K21.9 - Gastro-esophageal reflux disease without esophagitis Status: Acute Assessment and Plan: Pantoprazole 20 mg p.o. q.d. (10) Hypothyroidism: Qualifiers: Hypothyroidism type: unspecified Qualified Code(s): E03.9 - Hypothyroidism, unspecified Code(s): E03.9 - Hypothyroidism, unspecified Status: Acute Assessment and Plan: Continue levothyroxine 100 mcg (11) Hypotension due to blood loss: Code(s): I95.89 - Other hypotension; R58 - Hemorrhage, not elsewhere classified Status: Acute Assessment and Plan: Holding antihypertensive On fluids On stress dose steroids Echocardiogram performed 2022 shows left ventricular ejection fraction 55% Repeat echocardiogram Subjective Date/time seen: 04/13/25 07:43 Interval history: Interval history:79 year old male with a past medical history of mild dysplasia with chronic pancytopenia, coronary artery disease, essential hypertension diastolic dysfunction, type 2 diabetes mellitus on insulin therapy, hypothyroidism, GERD and BPH who was admitted for scheduled TURP and is being observed postop on with CBI. Patient underwent procedure due to recurrent episodes of hematuria that was complicating his chronic Webber catheter. He has had a chronic Webber catheter for the last 1.5 years approximately. He kept having recurrent ER visits and was admitted 3 times since March 10 due to hematuria. Patient had elected to go undergo TURP. Patient had reported 75 mL of blood loss and procedure was uncomplicated. Postop hemoglobin a drop from patient's baseline of 7.1-6.9 and then later to 6.6. 04/13: Started stress dose steroids. Patient is asx.Ordered ECHO Review of Systems Review of Systems: 12 systems were reviewed with pertinent positives and negatives per HPI. Except as documented in the HPI, all other systems were reviewed and are negative. Exam Narrative: Weight 66.4 kg BMI 24.4 Const: Other: No acute distress, appears younger than stated age, appropriate mood and affect HENMT: Other: Mucous membranes are moist, no oral pharyngeal erythema, good dentition Eyes: Other: Positive conjunctival pallor, no scleral icterus Neck: Other: No JVD, no lymphadenopathy Resp: Other: Clear to auscultation bilaterally, no increased work of breathing Cardio: Other: Regular rate, regular rhythm, 2/6 systolic murmur heard best at the left upper sternal border, no JVD, 2+ bilateral radial pedal pulses GI: Other: Soft, nontender, nondistended, positive bowel sounds : Other: Three way catheter in place with continuous bladder irrigation urine is clear Skin: Other: Darkly tanned, no petechiae, no large areas of bruising Neuro: Other: Patient is alert oriented x4, speech is clear, moderate hearing loss, no localizing neurologic deficits noted during the course of conversation Extrem: Other: No clubbing, cyanosis or edema, normal range of motion of bilateral upper and lower extremity Psych: Other: Jovial, loquacious, appropriate judgment and insight Objective Data Vital Signs Vital Signs: Vital Signs - 24 hr 04/12/25 11:00 04/12/25 13:30 04/12/25 13:45 Temperature 97.5 F L 98.4 F Pulse Rate 81 78 68 Respiratory Rate 16 18 17 Blood Pressure 120/64 80/49 L 110/52 L Pulse Oximetry 100 100 100 Oxygen Delivery Simple Face Mask Simple Face Mask Oxygen Flow Rate 6 6 04/12/25 14:01 04/12/25 14:15 04/12/25 14:30 Temperature Pulse Rate 65 68 68 Respiratory Rate 17 15 17 Blood Pressure 114/57 L 123/61 117/66 Pulse Oximetry 100 93 97 Oxygen Delivery Room Air Room Air Room Air Oxygen Flow Rate 04/12/25 14:45 04/12/25 15:00 04/12/25 15:24 Temperature Pulse Rate 74 65 53 L Respiratory Rate 12 14 16 Blood Pressure 109/53 L 126/57 L 127/49 L Pulse Oximetry 95 94 94 Oxygen Delivery Room Air Room Air Oxygen Flow Rate 04/12/25 15:54 04/12/25 16:14 04/12/25 16:54 Temperature Pulse Rate 64 62 Respiratory Rate 16 16 Blood Pressure 114/51 L 109/52 L Pulse Oximetry 96 99 Oxygen Delivery Room Air Oxygen Flow Rate 04/12/25 20:00 04/12/25 20:54 04/12/25 21:45 Temperature 98.6 F 98.6 F Pulse Rate 73 65 65 Respiratory Rate 14 16 16 Blood Pressure 110/51 L 110/51 L Pulse Oximetry 99 98 98 Oxygen Delivery Room Air Oxygen Flow Rate 04/12/25 21:50 04/12/25 22:08 04/12/25 23:08 Temperature 98.6 F 97.6 F 97.6 F Pulse Rate 65 73 69 Respiratory Rate 16 14 16 Blood Pressure 110/51 L 90/55 L 86/50 L Pulse Oximetry 98 99 98 Oxygen Delivery Oxygen Flow Rate 04/13/25 00:08 04/13/25 00:45 04/13/25 01:00 Temperature 97.6 F 97.6 F 97.8 F Pulse Rate 76 73 70 Respiratory Rate 16 16 16 Blood Pressure 92/45 L 89/45 L 86/28 L Pulse Oximetry 100 96 100 Oxygen Delivery Oxygen Flow Rate 04/13/25 05:55 Temperature 97.7 F Pulse Rate 62 Respiratory Rate 16 Blood Pressure 88/49 L Pulse Oximetry 100 Oxygen Delivery Oxygen Flow Rate Intake/Output Intake/Output: Intake & Output 04/10/25 04/11/25 04/12/25 04/13/25 23:59 23:59 23:59 23:59 Intake Total 390 325 Output Total 5650 800 [facility] -[id number] -214 Meds/Results Medications: Active Medications Generic Name Dose Route Start Last Admin Trade Name Freq PRN Reason Stop Dose Admin Hydrocodone Bitart/Acetaminophen 1 tab 04/12/25 15:09 04/12/25 15:50 Hydrocodone/Acetaminophen (*Crx) 5-325 Mg Tablet PO 1 tab Q4H PRN Administration Pain Rated 1-6 Carvedilol 3.125 mg 04/13/25 09:00 Carvedilol 3.125 Mg Tablet PO DAILY TROY Cephalexin HCl 500 mg 04/12/25 21:00 04/12/25 20:24 Cephalexin 500 Mg Capsule PO 500 mg Q12HR TROY Administration Dextrose 12.5 gm 04/12/25 19:47 Dextrose 50% 25 Gm/50 Ml Syringe IV PUSH PRN PRN Hypoglycemia Protocol Docusate Sodium 100 mg 04/12/25 17:00 04/12/25 17:40 Docusate Sodium 100 Mg Capsule PO 100 mg BID TROY Administration Glucagon 1 mg 04/12/25 19:47 Glucagon For Inj 1 Mg Vial IM PRN PRN Hypoglycemia Protocol Glucose 15 gm 04/12/25 19:47 Glucose Oral Gel 15 Gm Of Glucse In 37.5 Gm Tube PO PRN PRN Hypoglycemia Protocol Hyoscyamine 0.125 mg 04/12/25 15:09 Hyoscyamine Sulfate 0.125 Mg Tablet SUBLINGUAL Q6H PRN Bladder Spasm Dextrose 1,000 mls @ 100 mls/hr 04/12/25 19:47 Dextrose 5% 1,000 Ml IVPB PRN PRN Hypoglycemia Protocol Sodium Chloride 250 mls @ 30 mls/hr 04/13/25 07:10 Normal Saline Iv IV CONT 04/13/25 15:29 .Q8H20M STA Insulin Aspart 2 - 5 units 04/13/25 08:00 Insulin Aspart (*Bkc) 100 Units/Ml SUB-Q TIDWM TROY Protocol Insulin Glargine 12 units 04/12/25 18:00 04/12/25 17:40 Insulin Glargine (*Bkc) 100 Units/Ml SUB-Q 12 units QPM TROY Administration Isosorbide Mononitrate 60 mg 04/12/25 17:00 04/12/25 17:40 Isosorbide Mononitrate 60 Mg Tab.Er.24h PO 60 mg BID TROY Administration Levothyroxine Sodium 100 mcg 04/13/25 06:30 04/13/25 05:36 Levothyroxine Sodium 100 Mcg Tablet PO 100 mcg DAILY@0630 [facility] Administration Morphine Sulfate 2 mg 04/12/25 15:09 Morphine Sulfate (*Crx) 2 Mg/Ml Inj IV PUSH Q2H PRN Pain Rated 7-10 Naloxone HCl 0.1 mg 04/12/25 15:09 Naloxone Hcl 0.4 Mg/Ml Vial IV PUSH Q2M PRN Opiate Reversal Nitroglycerin 0.4 mg 04/12/25 15:09 Nitroglycerin Sl 0.4 Mg Tablet SUBLINGUAL Q5M PRN chest pain Ondansetron HCl 4 mg 04/12/25 15:09 Ondansetron Inj 4 Mg/2 Ml Vial IV PUSH Q12H PRN Nausea And Vomiting Pantoprazole Sodium 20 mg 04/13/25 09:00 Pantoprazole Sod Sesquihydrate 20 Mg Tab PO QAM TROY Ranolazine 500 mg 04/12/25 21:00 04/12/25 20:24 Ranolazine 500 Mg Tab.Er.12h PO 500 mg Q12HR TROY Administration Sacubitril/Valsartan 1 tab 04/12/25 21:00 04/12/25 20:24 Sacubitril/Valsartan 24-26 Mg Tablet PO 1 tab Q12HR TROY Administration Labs Labs: Laboratory Results - last 24 hr 04/12/25 04/12/25 04/12/25 10:42 11:08 14:44 WBC RBC Hgb 6.9 L* Hct 21.4 L MCV MCH MCHC RDW Plt Count MPV PT INR APTT Sodium Potassium Chloride Carbon Dioxide Anion Gap BUN Creatinine Estim Creat Clear Calc Estimated GFR Glucose POC Capillary Glucose 158 H 97 Calcium Magnesium Blood Type Antibody Screen Crossmatch 04/12/25 04/12/25 04/12/25 16:57 20:02 20:19 WBC 3.6 L RBC 1.78 L Hgb 6.6 L* Hct 20.4 L* MCV 114.6 H MCH 37.1 H MCHC 32.4 RDW 14.7 H Plt Count 149 L MPV 9.6 PT 15.2 H INR 1.2 APTT 31.1 Sodium 140 Potassium 4.1 Chloride 104 Carbon Dioxide 26 Anion Gap 10 BUN 28 H Creatinine 1.20 Estim Creat Clear Calc 38 Estimated GFR 58 L Glucose 100 POC Capillary Glucose 126 H 100 Calcium 8.9 Magnesium Blood Type A Positive Antibody Screen Negative Crossmatch See Detail 04/13/25 05:48 WBC RBC Hgb 7.0 L Hct 21.0 L MCV MCH MCHC RDW Plt Count MPV PT INR APTT Sodium 138 Potassium 4.4 Chloride 105 Carbon Dioxide 27 Anion Gap 6 BUN 27 H Creatinine 1.21 Estim Creat Clear Calc 38 Estimated GFR 58 L Glucose 182 H POC Capillary Glucose Calcium 8.4 Magnesium 1.6 Blood Type Antibody Screen Crossmatch Quality VTE Prophylaxis VTE prophylaxis: mechanical ordered (SCDs and Ramesh lopes) Hospitalist MIPS Advance Care Plan I have confirmed that the patient's Advanced Care Plan is present, code status is documented, or surrogate decision maker is listed in patient medical record.: Yes Medication Reconciliation I have utilized all available resources to obtain, update and review the patients current medications (includes all prescriptions, OTC, herbals, cannabis, and nutritional supplements).: Yes
[2025-04-13 07:51] LABS: Glucose Point of Care 171 mg/dl (65-105)
[2025-04-13] MEDS: DOCUSATE SODIUM 100 MG CAPSULE PO ×2 (08:24→17:21)
[2025-04-13] MEDS: PANTOPRAZOLE SOD SESQUIHYDRATE 20 MG TAB PO (08:24)
[2025-04-13] MEDS: CEPHALEXIN 500 MG CAPSULE PO ×2 (08:24→21:08)
[2025-04-13] MEDS: HYDROCORTISONE SODIUM SUCCINATE 100 MG/2 ML VIAL IV PUSH ×2 (08:25→17:36)
[2025-04-13] MEDS: RANOLAZINE 500 MG TAB.ER.12H PO ×2 (08:25→21:08)
[2025-04-13] MEDS: INSULIN ASPART (*BKC) 100 UNITS/ML SUB-Q ×2 (11:46→17:21)
[2025-04-13 11:47] LABS: Glucose Point of Care 301 mg/dl (65-105)
[2025-04-13] MEDS: PERFLUTREN LIPID MICROSPHERES 1.5 ML VIAL DILUTED TO 10 ML TOTAL VOLUME IV PUSH (14:25)
--- NOTE | 2025-04-13 14:49 | IVDEFINITY ---
Prior to administration of IV Definity the patient was educated on the risks and benefits of the imaging enhancing agent including potential adverse side effects. The patient verbalized understanding. Allergies were verified. No exclusion criteria were identified and at least one of the following inclusion criteria were met: 1) physician request, 2) patient technically difficult to image (per the [place] [employer] guidelines of two or more segments not discernable within the apical view), or 3) questionable left ventricular function. ?
[2025-04-13 16:46] LABS: Glucose Point of Care 280 mg/dl (65-105)
--- NOTE | 2025-04-13 16:51 | WPDUROPN2 ---
Progress Note: A&P Assessment and Plan (1) Status post recent transurethral resection of prostate: Code(s): Z98.890 - Other specified postprocedural states Status: Acute (2) Urinary obstruction: Code(s): N13.9 - Obstructive and reflux uropathy, unspecified Status: Acute Assessment and Plan: POD#1 s/p turp, cbi weaned/clear home with saini - Appreciate hospitalist evaluation of anemia await am labs hopeful d/c tomorrow with Saini (3) Gross hematuria: Code(s): R31.0 - Gross hematuria Status: Acute (4) Acute on chronic blood loss anemia: Code(s): D62 - Acute posthemorrhagic anemia Status: Acute Subjective Subjective Date/Time Seen: 04/13/25 16:51 Interval history: NAEO: CBi weaned, clear. no pain, tolerating diet. Denies CP/SOb. had 3 U RBC and echo Review of Systems Constitutional: Constitutional: Reports as per HPI and Reports no additional constitutional complaints Eyes: Eyes: Reports as per HPI ENT: Reports system reviewed and no additional complaints, except as documented Respiratory: Respiratory: Denies hemoptysis and Denies dyspnea Gastrointestinal: Gastrointestinal: Denies abdominal pain Genitourinary: Genitourinary: Reports no additional male genitourinary complaints Musculoskeletal: Musculoskeletal: Reports no additional musculoskeletal complaints Integumentary/Breasts: Skin/Breast: Reports system reviewed and no additional complaints, except as docu Neurologic: Reports system reviewed and no additional complaints, except as documented Exam Const: General: comfortable and no acute distress HENMT: Mouth: Yes moist mucous membranes Eyes: Sclera: sclerae normal EOM: EOMs intact bilaterally Resp: Effort & Inspection: normal respiratory effort Cardio: Rate: regular rate Rhythm: regular rhythm GI: Inspection: non-distended GI Palp: Yes Soft to palpation and No Tenderness to palpation present (GI) : Male General Exam: Yes normal external exam Urinary Catheter: Urinary Catheter: patent and draining and urine clear Objective Data Vital Signs Vital Signs: Vital Signs - 24 hr 04/12/25 16:54 04/12/25 20:00 04/12/25 20:54 Temperature 37.0 C Pulse Rate 62 73 65 Respiratory Rate 16 14 16 Blood Pressure 109/52 L 110/51 L Pulse Oximetry 99 99 98 Oxygen Delivery Room Air 04/12/25 21:45 04/12/25 21:50 04/12/25 22:08 Temperature 37.0 C 37.0 C 36.4 C Pulse Rate 65 65 73 Respiratory Rate 16 16 14 Blood Pressure 110/51 L 110/51 L 90/55 L Pulse Oximetry 98 98 99 Oxygen Delivery 04/12/25 23:08 04/13/25 00:08 04/13/25 00:45 Temperature 36.4 C 36.4 C 36.4 C Pulse Rate 69 76 73 Respiratory Rate 16 16 16 Blood Pressure 86/50 L 92/45 L 89/45 L Pulse Oximetry 98 100 96 Oxygen Delivery 04/13/25 01:00 04/13/25 05:55 04/13/25 08:09 Temperature 36.6 C 36.5 C 36.4 C Pulse Rate 70 62 71 Respiratory Rate 16 16 16 Blood Pressure 86/28 L 88/49 L 91/54 L Pulse Oximetry 100 100 100 Oxygen Delivery 04/13/25 08:15 04/13/25 08:24 04/13/25 09:24 Temperature 36.0 C L 36.3 C L Pulse Rate 78 72 Respiratory Rate 16 16 Blood Pressure 111/62 93/41 L Pulse Oximetry 98 100 Oxygen Delivery Room Air 04/13/25 10:24 04/13/25 10:41 04/13/25 11:29 Temperature 36.2 C L 36.2 C L 36.2 C L Pulse Rate 70 70 71 Respiratory Rate 16 16 16 Blood Pressure 127/49 L 127/49 L 114/58 L Pulse Oximetry 100 100 100 Oxygen Delivery 04/13/25 11:45 04/13/25 12:45 04/13/25 13:45 Temperature 36.2 C L 36.2 C L 36.3 C L Pulse Rate 68 71 64 Respiratory Rate 14 16 16 Blood Pressure 102/48 L 110/50 L 118/94 H Pulse Oximetry 100 100 100 Oxygen Delivery 04/13/25 14:39 Temperature 36.5 C Pulse Rate 62 Respiratory Rate 18 Blood Pressure 100/59 L Pulse Oximetry 100 Oxygen Delivery Intake/Output Intake/Output: Intake & Output 04/10/25 04/11/25 04/12/25 04/13/25 23:59 23:59 23:59 23:59 Intake Total 390 1702 Output Total 5650 800 Balance -5260 902 Meds/Results Medications: Active Medications Generic Name Dose Route Start Last Admin Trade Name Freq PRN Reason Stop Dose Admin Hydrocodone Bitart/Acetaminophen 1 tab 04/12/25 15:09 04/12/25 15:50 Hydrocodone/Acetaminophen (*Crx) 5-325 Mg Tablet PO 1 tab Q4H PRN Administration Pain Rated 1-6 Carvedilol 3.125 mg 04/13/25 09:00 Carvedilol 3.125 Mg Tablet PO DAILY TROY Cephalexin HCl 500 mg 04/12/25 21:00 04/13/25 08:24 Cephalexin 500 Mg Capsule PO 500 mg Q12HR TROY Administration Dextrose 12.5 gm 04/12/25 19:47 Dextrose 50% 25 Gm/50 Ml Syringe IV PUSH PRN PRN Hypoglycemia Protocol Docusate Sodium 100 mg 04/12/25 17:00 04/13/25 08:24 Docusate Sodium 100 Mg Capsule PO 100 mg BID TROY Administration Glucagon 1 mg 04/12/25 19:47 Glucagon For Inj 1 Mg Vial IM PRN PRN Hypoglycemia Protocol Glucose 15 gm 04/12/25 19:47 Glucose Oral Gel 15 Gm Of Glucse In 37.5 Gm Tube PO PRN PRN Hypoglycemia Protocol Hydrocortisone Sodium Succinate 100 mg 04/13/25 08:00 04/13/25 08:25 Hydrocortisone Sodium Succinate 100 Mg/2 Ml Vial IV PUSH 100 mg Q8H TROY Administration Hyoscyamine 0.125 mg 04/12/25 15:09 Hyoscyamine Sulfate 0.125 Mg Tablet SUBLINGUAL Q6H PRN Bladder Spasm Dextrose 1,000 mls @ 100 mls/hr 04/12/25 19:47 Dextrose 5% 1,000 Ml IVPB PRN PRN Hypoglycemia Protocol Insulin Aspart 2 - 5 units 04/13/25 08:00 04/13/25 11:46 Insulin Aspart (*Bkc) 100 Units/Ml SUB-Q 4 units TIDWM TROY Administration Protocol Insulin Glargine 12 units 04/12/25 18:00 04/12/25 17:40 Insulin Glargine (*Bkc) 100 Units/Ml SUB-Q 12 units QPM TROY Administration Isosorbide Mononitrate 60 mg 04/12/25 17:00 04/12/25 17:40 Isosorbide Mononitrate 60 Mg Tab.Er.24h PO 60 mg BID TROY Administration Levothyroxine Sodium 100 mcg 04/13/25 06:30 04/13/25 05:36 Levothyroxine Sodium 100 Mcg Tablet PO 100 mcg DAILY@0630 TROY Administration Morphine Sulfate 2 mg 04/12/25 15:09 Morphine Sulfate (*Crx) 2 Mg/Ml Inj IV PUSH Q2H PRN Pain Rated 7-10 Naloxone HCl 0.1 mg 04/12/25 15:09 Naloxone Hcl 0.4 Mg/Ml Vial IV PUSH Q2M PRN Opiate Reversal Nitroglycerin 0.4 mg 04/12/25 15:09 Nitroglycerin Sl 0.4 Mg Tablet SUBLINGUAL Q5M PRN chest pain Ondansetron HCl 4 mg 04/12/25 15:09 Ondansetron Inj 4 Mg/2 Ml Vial IV PUSH Q12H PRN Nausea And Vomiting Pantoprazole Sodium 20 mg 04/13/25 09:00 04/13/25 08:24 Pantoprazole Sod Sesquihydrate 20 Mg Tab PO 20 mg QAM TROY Administration Ranolazine 500 mg 04/12/25 21:00 04/13/25 08:25 Ranolazine 500 Mg Tab.Er.12h PO 500 mg Q12HR TROY Administration Sacubitril/Valsartan 1 tab 04/12/25 21:00 04/12/25 20:24 Sacubitril/Valsartan 24-26 Mg Tablet PO 1 tab Q12HR TROY Administration Labs Labs: Laboratory Results - last 24 hr 04/12/25 04/12/25 04/12/25 16:57 20:02 20:19 WBC 3.6 L RBC 1.78 L Hgb 6.6 L* Hct 20.4 L* MCV 114.6 H MCH 37.1 H MCHC 32.4 RDW 14.7 H Plt Count 149 L MPV 9.6 PT 15.2 H INR 1.2 APTT 31.1 Sodium 140 Potassium 4.1 Chloride 104 Carbon Dioxide 26 Anion Gap 10 BUN 28 H Creatinine 1.20 Estim Creat Clear Calc 38 Estimated GFR 58 L Glucose 100 POC Capillary Glucose 126 H 100 Calcium 8.9 Magnesium TSH (Reflex) Blood Type A Positive Antibody Screen Negative Crossmatch See Detail 04/13/25 04/13/25 04/13/25 05:48 07:42 11:44 WBC RBC Hgb 7.0 L Hct 21.0 L MCV MCH MCHC RDW Plt Count MPV PT INR APTT Sodium 138 Potassium 4.4 Chloride 105 Carbon Dioxide 27 Anion Gap 6 BUN 27 H Creatinine 1.21 Estim Creat Clear Calc 38 Estimated GFR 58 L Glucose 182 H POC Capillary Glucose 171 H 301 H Calcium 8.4 Magnesium 1.6 TSH (Reflex) 2.800 Blood Type Antibody Screen Crossmatch 04/13/25 16:42 WBC RBC Hgb Hct MCV MCH MCHC RDW Plt Count MPV PT INR APTT Sodium Potassium Chloride Carbon Dioxide Anion Gap BUN Creatinine Estim Creat Clear Calc Estimated GFR Glucose POC Capillary Glucose 280 H Calcium Magnesium TSH (Reflex) Blood Type Antibody Screen Crossmatch
[2025-04-13] MEDS: INSULIN GLARGINE (*BKC) 100 UNITS/ML 12 UNITS SUB-Q (17:21)
[2025-04-13 21:21] LABS: Glucose Point of Care 299 mg/dl (65-105)
[2025-04-14] MEDS: HYDROCORTISONE SODIUM SUCCINATE 100 MG/2 ML VIAL IV PUSH ×4 (00:44→23:07)
[2025-04-14 01:51] VITALS: BP 107/49; PULSE 55; RESP 16; TEMP 36.6; O2SAT 100
[2025-04-14 01:52] LABS: Glucose Point of Care 275 mg/dl (65-105)
[2025-04-14] MEDS: LEVOTHYROXINE SODIUM 100 MCG TABLET PO (05:40)
[2025-04-14 06:56] VITALS: BP 118/54; PULSE 60; RESP 16; TEMP 36.2; O2SAT 98
[2025-04-14 08:08] LABS: Glucose Point of Care 213 mg/dl (65-105)
[2025-04-14] MEDS: INSULIN ASPART (*BKC) 100 UNITS/ML SUB-Q ×4 (08:30→20:38)
[2025-04-14 08:34] VITALS: RESP 16; O2SAT 98
[2025-04-14] MEDS: CEPHALEXIN 500 MG CAPSULE PO ×2 (08:34→20:38)
[2025-04-14] MEDS: DOCUSATE SODIUM 100 MG CAPSULE PO (08:34)
[2025-04-14] MEDS: RANOLAZINE 500 MG TAB.ER.12H PO ×2 (08:34→20:38)
[2025-04-14] MEDS: PANTOPRAZOLE SOD SESQUIHYDRATE 20 MG TAB PO (08:34)
[2025-04-14 11:48] LABS: Glucose Point of Care 246 mg/dl (65-105)
--- NOTE | 2025-04-14 12:35 | P.PNUR_ITS ---
Progress Note: A&P Assessment and Plan (1) Status post recent transurethral resection of prostate: Code(s): Z98.890 - Other specified postprocedural states Status: Acute (2) Urinary obstruction: Code(s): N13.9 - Obstructive and reflux uropathy, unspecified Status: Acute Assessment and Plan: POD#2 s/p turp, cbi weaned/clear home with saini -can dc cbi - Appreciate hospitalist evaluation of anemia await am labs hopeful d/c tomorrow with Saini (3) Gross hematuria: Code(s): R31.0 - Gross hematuria Status: Acute (4) Acute on chronic blood loss anemia: Code(s): D62 - Acute posthemorrhagic anemia Status: Acute Subjective Subjective Date/Time Seen: 04/14/25 12:35 Interval history: NAEO: Doing well, urine clear on clamped CBI. Likely dc tomorrow Review of Systems Constitutional: Constitutional: Reports as per HPI and Reports no additional constitutional complaints Eyes: Eyes: Reports as per HPI ENT: Reports system reviewed and no additional complaints, except as documented Respiratory: Respiratory: Denies hemoptysis and Denies dyspnea Gastrointestinal: Gastrointestinal: Denies abdominal pain Genitourinary: Genitourinary: Reports no additional male genitourinary complaints Musculoskeletal: Musculoskeletal: Reports no additional musculoskeletal complaints Integumentary/Breasts: Skin/Breast: Reports system reviewed and no additional complaints, except as docu Neurologic: Reports system reviewed and no additional complaints, except as documented Exam Const: General: comfortable and no acute distress HENMT: Mouth: Yes moist mucous membranes Eyes: Sclera: sclerae normal EOM: EOMs intact bilaterally Resp: Effort & Inspection: normal respiratory effort Cardio: Rate: regular rate Rhythm: regular rhythm GI: Inspection: non-distended GI Palp: Yes Soft to palpation and No Tenderness to palpation present (GI) : Male General Exam: Yes normal external exam Urinary Catheter: Urinary Catheter: patent and draining and urine clear Objective Data Vital Signs Vital Signs: Vital Signs - 24 hr 04/13/25 12:45 04/13/25 13:45 04/13/25 14:39 Temperature 36.2 C L 36.3 C L 36.5 C Pulse Rate 71 64 62 Respiratory Rate 16 16 18 Blood Pressure 110/50 L 118/94 H 100/59 L Pulse Oximetry 100 100 100 Oxygen Delivery 04/13/25 16:54 04/13/25 20:00 04/13/25 21:12 Temperature 37.0 C Pulse Rate 68 67 67 Respiratory Rate 16 18 18 Blood Pressure 118/60 129/54 L Pulse Oximetry 99 97 97 Oxygen Delivery Room Air 04/14/25 01:51 04/14/25 06:56 04/14/25 08:34 Temperature 36.6 C 36.2 C L Pulse Rate 55 L 60 Respiratory Rate 16 16 16 Blood Pressure 107/49 L 118/54 L Pulse Oximetry 100 98 98 Oxygen Delivery Room Air Intake/Output Intake/Output: Intake & Output 04/11/25 04/12/25 04/13/25 04/14/25 23:59 23:59 23:59 23:59 Intake Total 390 2732 240 Output Total 5688 2271 900 Balance -5260 557 -660 Meds/Results Medications: Active Medications Generic Name Dose Route Start Last Admin Trade Name Freq PRN Reason Stop Dose Admin Hydrocodone Bitart/Acetaminophen 1 tab 04/12/25 15:09 04/12/25 15:50 Hydrocodone/Acetaminophen (*Crx) 5-325 Mg Tablet PO 1 tab Q4H PRN Administration Pain Rated 1-6 Carvedilol 3.125 mg 04/13/25 09:00 Carvedilol 3.125 Mg Tablet PO DAILY TROY Cephalexin HCl 500 mg 04/12/25 21:00 04/14/25 08:34 Cephalexin 500 Mg Capsule PO 500 mg Q12HR TROY Administration Dextrose 12.5 gm 04/12/25 19:47 Dextrose 50% 25 Gm/50 Ml Syringe IV PUSH PRN PRN Hypoglycemia Protocol Docusate Sodium 100 mg 04/12/25 17:00 04/14/25 08:34 Docusate Sodium 100 Mg Capsule PO 100 mg BID TROY Administration Glucagon 1 mg 04/12/25 19:47 Glucagon For Inj 1 Mg Vial IM PRN PRN Hypoglycemia Protocol Glucose 15 gm 04/12/25 19:47 Glucose Oral Gel 15 Gm Of Glucse In 37.5 Gm Tube PO PRN PRN Hypoglycemia Protocol Hydrocortisone Sodium Succinate 100 mg 04/13/25 08:00 04/14/25 08:34 Hydrocortisone Sodium Succinate 100 Mg/2 Ml Vial IV PUSH 100 mg Q8H TROY Administration Hyoscyamine 0.125 mg 04/12/25 15:09 Hyoscyamine Sulfate 0.125 Mg Tablet SUBLINGUAL Q6H PRN Bladder Spasm Dextrose 1,000 mls @ 100 mls/hr 04/12/25 19:47 Dextrose 5% 1,000 Ml IVPB PRN PRN Hypoglycemia Protocol Insulin Aspart 2 - 5 units 04/13/25 08:00 04/14/25 12:09 Insulin Aspart (*Bkc) 100 Units/Ml SUB-Q 2 units TIDWM TROY Administration Protocol Insulin Aspart 1 - 2 units 04/14/25 21:00 Insulin Aspart (*Bkc) 100 Units/Ml SUB-Q HS TROY Protocol Insulin Glargine 12 units 04/12/25 18:00 04/13/25 17:21 Insulin Glargine (*Bkc) 100 Units/Ml SUB-Q 12 units QPM TROY Administration Isosorbide Mononitrate 60 mg 04/12/25 17:00 04/12/25 17:40 Isosorbide Mononitrate 60 Mg Tab.Er.24h PO 60 mg BID TROY Administration Levothyroxine Sodium 100 mcg 04/13/25 06:30 04/14/25 05:40 Levothyroxine Sodium 100 Mcg Tablet PO 100 mcg DAILY@0630 [facility] Administration Morphine Sulfate 2 mg 04/12/25 15:09 Morphine Sulfate (*Crx) 2 Mg/Ml Inj IV PUSH Q2H PRN Pain Rated 7-10 Naloxone HCl 0.1 mg 04/12/25 15:09 Naloxone Hcl 0.4 Mg/Ml Vial IV PUSH Q2M PRN Opiate Reversal Nitroglycerin 0.4 mg 04/12/25 15:09 Nitroglycerin Sl 0.4 Mg Tablet SUBLINGUAL Q5M PRN chest pain Ondansetron HCl 4 mg 04/12/25 15:09 Ondansetron Inj 4 Mg/2 Ml Vial IV PUSH Q12H PRN Nausea And Vomiting Pantoprazole Sodium 20 mg 04/13/25 09:00 04/14/25 08:34 Pantoprazole Sod Sesquihydrate 20 Mg Tab PO 20 mg QAM TROY Administration Polyethylene Glycol 17 gm 04/14/25 07:27 Polyethylene Glycol 3350 17 Gm Powd.Pack PO QAM PRN Constipation Ranolazine 500 mg 04/12/25 21:00 04/14/25 08:34 Ranolazine 500 Mg Tab.Er.12h PO 500 mg Q12HR TROY Administration Sacubitril/Valsartan 1 tab 04/12/25 21:00 04/12/25 20:24 Sacubitril/Valsartan 24-26 Mg Tablet PO 1 tab Q12HR TROY Administration Labs Labs: Laboratory Results - last 24 hr 04/12/25 04/13/25 04/13/25 20:02 16:42 20:12 POC Capillary Glucose 280 H 299 H Crossmatch See Detail 04/14/25 04/14/25 04/14/25 01:45 08:05 11:46 POC Capillary Glucose 275 H 213 H 246 H Crossmatch
[2025-04-14 14:00] VITALS: BP 97/66; PULSE 66; RESP 16; TEMP 36.6; O2SAT 100
--- NOTE | 2025-04-14 15:11 | P.PNIM_ITS ---
Progress Note: A&P Assessment and Plan (1) Status post recent transurethral resection of prostate: Code(s): Z98.890 - Other specified postprocedural states Status: Acute Assessment and Plan: Underwent TURP 0 04/12 Monitor H&H Monitor HypoNa Complex Webber catheter placement Urology following (2) Acute on chronic blood loss anemia: Code(s): D62 - Acute posthemorrhagic anemia Status: Acute Assessment and Plan: Multifactorial Possible underlying myelodysplastic syndrome Possible to to the recent surgery TURP Dilutional anemia from surgery Blood loss from hematuria Underlying iron deficiency anemia,coagulopathy or thrombocytopenia (3) Myelodysplastic syndrome: Code(s): D46.9 - Myelodysplastic syndrome, unspecified Status: Acute Assessment and Plan: 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 (4) Pancytopenia: Code(s): D61.818 - Other pancytopenia Status: Acute Assessment and Plan: As above (5) BPH (benign prostatic hyperplasia): Qualifiers: Lower urinary tract symptom presence: symptoms present Lower urinary tract symptom detail: urinary obstruction Qualified Code(s): N40.1 - Benign prostatic hyperplasia with lower urinary tract symptoms; N13.8 - Other obstructive and reflux uropathy Code(s): N40.0 - Benign prostatic hyperplasia without lower urinary tract symptoms Status: Acute Assessment and Plan: As above (6) CKD (chronic kidney disease), stage III: Qualifiers: Chronic kidney disease stage 3 subtype: stage 3a (GFR 45-59) Qualified Code(s): N18.31 - Chronic kidney disease, stage 3a Code(s): N18.30 - Chronic kidney disease, stage 3 unspecified Status: Acute Assessment and Plan: -monitor closely during diuresis -Avoid nephrotoxic drugs. -Monitor antihypertensive drug therapy. -Avoid NSAIDs. -Routine CMP monitoring GFR. -Monitor electrolytes especially potassium. -Antibiotic doses depending on creatinine clearance. -Pharmacy does medications. -Cr stable 1.21 appears at baseline -Routine follow-up with Nephrology as an outpatient. 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 transplanted heart: [place] heart Associated angina: without angina Qualified Code(s): I25.10 - Atherosclerotic heart disease of [place] coronary artery without angina pectoris Code(s): I25.10 - Atherosclerotic heart disease of [place] coronary artery without angina pectoris Status: Acute (9) GERD (gastroesophageal reflux disease): Qualifiers: Esophagitis presence: with esophagitis Esophagitis bleeding: without hemorrhage Qualified Code(s): K21.00 - Gastro-esophageal reflux disease with esophagitis, without bleeding Code(s): K21.9 - Gastro-esophageal reflux disease without esophagitis Status: Acute Assessment and Plan: Pantoprazole 20 mg p.o. q.d. (10) Hypothyroidism: Qualifiers: Hypothyroidism type: unspecified Qualified Code(s): E03.9 - Hypothyroidism, unspecified Code(s): E03.9 - Hypothyroidism, unspecified Status: Acute Assessment and Plan: Continue levothyroxine 100 mcg (11) Hypotension due to blood loss: Code(s): I95.89 - Other hypotension; R58 - Hemorrhage, not elsewhere classified Status: Acute Assessment and Plan: Holding antihypertensive On fluids On stress dose steroids Echocardiogram performed 2022 shows left ventricular ejection fraction 55% Repeat echocardiogram shows left ventricular ejection fraction 50-60% Subjective Date/time seen: 04/14/25 15:11 Interval history: Patient is currently doing well. Will discontinue use stress dose steroid tomorrow with no further episodes of hypotension Review of Systems Review of Systems: 12 systems were reviewed with pertinent positives and negatives per HPI. Except as documented in the HPI, all other systems were reviewed and are negative. Exam Narrative: Weight 66.4 kg BMI 24.4 Const: Other: No acute distress, appears younger than stated age, appropriate mood and affect HENMT: Other: Mucous membranes are moist, no oral pharyngeal erythema, good dentition Eyes: Other: Positive conjunctival pallor, no scleral icterus Neck: Other: No JVD, no lymphadenopathy Resp: Other: Clear to auscultation bilaterally, no increased work of breathing Cardio: Other: Regular rate, regular rhythm, 2/6 systolic murmur heard best at the left upper sternal border, no JVD, 2+ bilateral radial pedal pulses GI: Other: Soft, nontender, nondistended, positive bowel sounds : Other: Three way catheter in place with continuous bladder irrigation urine is clear Skin: Other: Darkly tanned, no petechiae, no large areas of bruising Neuro: Other: Patient is alert oriented x4, speech is clear, moderate hearing loss, no localizing neurologic deficits noted during the course of conversation Extrem: Other: No clubbing, cyanosis or edema, normal range of motion of bilateral upper and lower extremity Psych: Other: Jovial, loquacious, appropriate judgment and insight Objective Data Vital Signs Vital Signs: Vital Signs - 24 hr 04/13/25 16:54 04/13/25 20:00 04/13/25 21:12 Temperature 98.6 F Pulse Rate 68 67 67 Respiratory Rate 16 18 18 Blood Pressure 118/60 129/54 L Pulse Oximetry 99 97 97 Oxygen Delivery Room Air 04/14/25 01:51 04/14/25 06:56 04/14/25 08:34 Temperature 97.9 F 97.2 F L Pulse Rate 55 L 60 Respiratory Rate 16 16 16 Blood Pressure 107/49 L 118/54 L Pulse Oximetry 100 98 98 Oxygen Delivery Room Air 04/14/25 14:00 Temperature 97.9 F Pulse Rate 66 Respiratory Rate 16 Blood Pressure 97/66 L Pulse Oximetry 100 Oxygen Delivery Intake/Output Intake/Output: Intake & Output 04/11/25 04/12/25 04/13/25 04/14/25 23:59 23:59 23:59 23:59 Intake Total 390 2732 480 Output Total 5650 2175 900 Balance -5260 784 -504 Meds/Results Medications: Active Medications Generic Name Dose Route Start Last Admin Trade Name Freq PRN Reason Stop Dose Admin Hydrocodone Bitart/Acetaminophen 1 tab 04/12/25 15:09 04/12/25 15:50 Hydrocodone/Acetaminophen (*Crx) 5-325 Mg Tablet PO 1 tab Q4H PRN Administration Pain Rated 1-6 Carvedilol 3.125 mg 04/13/25 09:00 Carvedilol 3.125 Mg Tablet PO DAILY TROY Cephalexin HCl 500 mg 04/12/25 21:00 04/14/25 08:34 Cephalexin 500 Mg Capsule PO 500 mg Q12HR TROY Administration Dextrose 12.5 gm 04/12/25 19:47 Dextrose 50% 25 Gm/50 Ml Syringe IV PUSH PRN PRN Hypoglycemia Protocol Docusate Sodium 100 mg 04/12/25 17:00 04/14/25 08:34 Docusate Sodium 100 Mg Capsule PO 100 mg BID TROY Administration Glucagon 1 mg 04/12/25 19:47 Glucagon For Inj 1 Mg Vial IM PRN PRN Hypoglycemia Protocol Glucose 15 gm 04/12/25 19:47 Glucose Oral Gel 15 Gm Of Glucse In 37.5 Gm Tube PO PRN PRN Hypoglycemia Protocol Hydrocortisone Sodium Succinate 100 mg 04/13/25 08:00 04/14/25 08:34 Hydrocortisone Sodium Succinate 100 Mg/2 Ml Vial IV PUSH 100 mg Q8H TROY Administration Hyoscyamine 0.125 mg 04/12/25 15:09 Hyoscyamine Sulfate 0.125 Mg Tablet SUBLINGUAL Q6H PRN Bladder Spasm Dextrose 1,000 mls @ 100 mls/hr 04/12/25 19:47 Dextrose 5% 1,000 Ml IVPB PRN PRN Hypoglycemia Protocol Insulin Aspart 2 - 5 units 04/13/25 08:00 04/14/25 12:09 Insulin Aspart (*Bkc) 100 Units/Ml SUB-Q 2 units TIDWM TROY Administration Protocol Insulin Aspart 1 - 2 units 04/14/25 21:00 Insulin Aspart (*Bkc) 100 Units/Ml SUB-Q HS TROY Protocol Insulin Glargine 12 units 04/12/25 18:00 04/13/25 17:21 Insulin Glargine (*Bkc) 100 Units/Ml SUB-Q 12 units QPM TROY Administration Isosorbide Mononitrate 60 mg 04/12/25 17:00 04/12/25 17:40 Isosorbide Mononitrate 60 Mg Tab.Er.24h PO 60 mg BID TROY Administration Levothyroxine Sodium 100 mcg 04/13/25 06:30 04/14/25 05:40 Levothyroxine Sodium 100 Mcg Tablet PO 100 mcg DAILY@0630 [facility] Administration Morphine Sulfate 2 mg 04/12/25 15:09 Morphine Sulfate (*Crx) 2 Mg/Ml Inj IV PUSH Q2H PRN Pain Rated 7-10 Naloxone HCl 0.1 mg 04/12/25 15:09 Naloxone Hcl 0.4 Mg/Ml Vial IV PUSH Q2M PRN Opiate Reversal Nitroglycerin 0.4 mg 04/12/25 15:09 Nitroglycerin Sl 0.4 Mg Tablet SUBLINGUAL Q5M PRN chest pain Ondansetron HCl 4 mg 04/12/25 15:09 Ondansetron Inj 4 Mg/2 Ml Vial IV PUSH Q12H PRN Nausea And Vomiting Pantoprazole Sodium 20 mg 04/13/25 09:00 04/14/25 08:34 Pantoprazole Sod Sesquihydrate 20 Mg Tab PO 20 mg QAM TROY Administration Polyethylene Glycol 17 gm 04/14/25 07:27 Polyethylene Glycol 3350 17 Gm Powd.Pack PO QAM PRN Constipation Ranolazine 500 mg 04/12/25 21:00 04/14/25 08:34 Ranolazine 500 Mg Tab.Er.12h PO 500 mg Q12HR TROY Administration Sacubitril/Valsartan 1 tab 04/12/25 21:00 04/12/25 20:24 Sacubitril/Valsartan 24-26 Mg Tablet PO 1 tab Q12HR TROY Administration Labs Labs: Laboratory Results - last 24 hr 04/13/25 04/13/25 04/14/25 16:42 20:12 01:45 POC Capillary Glucose 280 H 299 H 275 H 04/14/25 04/14/25 08:05 11:46 POC Capillary Glucose 213 H 246 H Quality VTE Prophylaxis VTE prophylaxis: mechanical ordered (SCDs and Ramesh lopes) Hospitalist MIPS Advance Care Plan I have confirmed that the patient's Advanced Care Plan is present, code status is documented, or surrogate decision maker is listed in patient medical record.: Yes Medication Reconciliation I have utilized all available resources to obtain, update and review the patients current medications (includes all prescriptions, OTC, herbals, cannabis, and nutritional supplements).: Yes
[2025-04-14 15:35] LABS: Hematocrit 28.1 % (42.0-52.0); Mean Corpuscular Hemoglobin 33.7 pg (26-34); Mean Corpuscular Volume 105.2 fl (80-100); Mean Platelet Volume 9.6 fl (7.4-10.4); Platelet Count Result 213 k/mm3 (150-375); Red Blood Count 2.67 M/mm3 (4.6-6.20); Red Cell Distribution Width 21.4 % (11.5-14.5); White Blood Count 5.4 K/mm3 (4.5-10.0)
[2025-04-14 16:03] LABS: Alanine Aminotransferase 14 U/L (6-50); Albumin Level 3.3 g/dL (3.5-5.1); Alkaline Phosphatase 59 U/L (38-126); Anion Gap 8 mmol/L (4-12); Aspartate Amino Transferase 19 U/L (17-59); Bilirubin,Total 0.4 mg/dL (0.2-1.3); Blood Urea Nitrogen 25 mg/dL (9-20); Calcium 8.6 mg/dL (8.4-10.2); Carbon Dioxide 22 mmol/L (22-30); Chloride 106 mmol/L (98-107); Estimated CRCL calculation 44 ml/min; Estimated Glomerular Filt Rate > 60; Glucose 339 mg/dL (65-110); Potassium 4.3 mmol/L (3.4-5.0); Sodium 136 mmol/L (137-145); Total Protein 5.9 g/dL (6.3-8.2)
[2025-04-14 16:41] LABS: Glucose Point of Care 316 mg/dl (65-105)
[2025-04-14] MEDS: INSULIN GLARGINE (*BKC) 100 UNITS/ML 12 UNITS SUB-Q (16:44)
[2025-04-14 20:00] VITALS: PULSE 60; RESP 18; O2SAT 99
[2025-04-14 20:26] LABS: Glucose Point of Care 305 mg/dl (65-105)
[2025-04-14 21:13] LABS: Hematocrit 27.6 % (42.0-52.0); Hemoglobin 9.2 g/dL (14.0-18.0)
[2025-04-14 22:04] VITALS: BP 102/50; PULSE 60; RESP 18; TEMP 36.7; O2SAT 99
[2025-04-15 05:18] LABS: Hematocrit 28.3 % (42.0-52.0); Hemoglobin 9.2 g/dL (14.0-18.0); Mean Corpuscular HGB Conc 32.5 g/dl (32-36); Mean Corpuscular Hemoglobin 33.1 pg (26-34); Mean Corpuscular Volume 101.8 fl (80-100); Mean Platelet Volume 9.8 fl (7.4-10.4); Platelet Count Result 233 k/mm3 (150-375); Red Blood Count 2.78 M/mm3 (4.6-6.20); Red Cell Distribution Width 20.3 % (11.5-14.5); White Blood Count 5.5 K/mm3 (4.5-10.0)
[2025-04-15 05:47] LABS: Alanine Aminotransferase 9 U/L (6-50); Alkaline Phosphatase 53 U/L (38-126); Anion Gap 6 mmol/L (4-12); Aspartate Amino Transferase 15 U/L (17-59); Bilirubin,Total 0.4 mg/dL (0.2-1.3); Blood Urea Nitrogen 25 mg/dL (9-20); Calcium 8.5 mg/dL (8.4-10.2); Carbon Dioxide 27 mmol/L (22-30); Chloride 106 mmol/L (98-107); Estimated CRCL calculation 41 ml/min; Estimated Glomerular Filt Rate > 60; Glucose 221 mg/dL (65-110); Potassium 4.1 mmol/L (3.4-5.0); Sodium 139 mmol/L (137-145); Total Protein 5.8 g/dL (6.3-8.2)
[2025-04-15 06:05] VITALS: BP 117/60; PULSE 73; RESP 18; TEMP 36.8; O2SAT 99
[2025-04-15] MEDS: LEVOTHYROXINE SODIUM 100 MCG TABLET PO (06:09)
[2025-04-15 08:23] LABS: Glucose Point of Care 211 mg/dl (65-105)
[2025-04-15] MEDS: INSULIN ASPART (*BKC) 100 UNITS/ML SUB-Q (08:31)
[2025-04-15] MEDS: FLUCONAZOLE 150 MG TABLET PO (08:31)
--- NOTE | 2025-04-15 09:06 | PM.DS ---
DS: Admitting Diagnosis Discharge Date 04/15/2025 Admitting Diagnosis Gross hematuria DS: Discharge Diagnosis Discharge Diagnosis (1) Status post recent transurethral resection of prostate: Code(s): Z98.890 - Other specified postprocedural states Status: Acute (2) Urinary obstruction: Code(s): N13.9 - Obstructive and reflux uropathy, unspecified Status: Acute (3) Gross hematuria: Code(s): R31.0 - Gross hematuria Status: Acute (4) Acute on chronic blood loss anemia: Code(s): D62 - Acute posthemorrhagic anemia Status: Acute DS: Summary Hospital Course Hospital Course: This is an 79-year-old male with a chronic indwelling Webber catheter who presented to [facility] on 04/12/2025 to undergo cystoscopy with clot evacuation and TURP of his prostate as he had been having repeated episodes of gross hematuria with clot retention. He underwent cystoscopy with TURP and complex Webber catheter placement on 04/12/[address] Mills. He tolerated this procedure well. He was subsequently admitted for CBI. He did develop acute on chronic anemia during hospital admission for which he was seen in evaluation by hospitalist team and received 1 unit of packed red blood cells. He had coagulopathy evaluation during admission which was relatively unremarkable. His hemoglobin at time of discharge was stable at 9.2. His urine cleared and CBI was discontinued. He was discharged with Webber catheter in place and will follow-up with Dr. Mills as scheduled on 05/02/2025. He is also scheduled for IR evaluation to consider possible prostate artery embolization. We reviewed worrisome signs and symptoms for which to seek care and he was discharged in hemodynamically stable condition on 04/15/2025 on POD #3. Status at Discharge Functional status at discharge: independent ambulation Overall status at discharge: patient is back to baseline Time Spent with Patient Time attestation: Total time spent providing and/or coordinating discharge services: 45 minutes Time spent: Greater than 30 minutes Exam Narrative: General: Awake, alert, comfortable, no acute distress HEENT: Normocephalic, atraumatic, sclerae anicteric Respiratory: Normal respiratory effort, no accessory muscle use Abdomen: Nondistended, soft, nontender : Webber catheter draining clear yellow urine Skin: Normal coloration, warm and dry Neurologic: No focal neuro deficits noted Psychiatric: Appropriate mood and affect, judgment and insight intact DS: Data Data Completed and Pending Pending studies at discharge: Pending at discharge 04/12/25 12:07 Surgical [PTH] Routine Labs on day of discharge: Labs from last 24 hours 04/15/25 04/15/25 04/14/25 08:20 04:49 21:09 WBC 5.5 RBC 2.78 L Hgb 9.2 L 9.2 L Hct 28.3 L 27.6 L MCV 101.8 H MCH 33.1 MCHC 32.5 RDW 20.3 H Plt Count 233 MPV 9.8 Sodium 139 Potassium 4.1 Chloride 106 Carbon Dioxide 27 Anion Gap 6 BUN 25 H Creatinine 1.10 Estim Creat Clear Calc 41 Estimated GFR > 60 Glucose 221 H POC Capillary Glucose 211 H Calcium 8.5 Total Bilirubin 0.4 AST 15 L ALT 9 Alkaline Phosphatase 53 Total Protein 5.8 L Albumin 3.0 L 04/14/25 04/14/25 04/14/25 20:23 16:36 15:31 WBC 5.4 RBC 2.67 L Hgb 9.0 L Hct 28.1 L MCV 105.2 H D MCH 33.7 D MCHC 32.0 RDW 21.4 H Plt Count 213 MPV 9.6 Sodium 136 L Potassium 4.3 Chloride 106 Carbon Dioxide 22 Anion Gap 8 BUN 25 H Creatinine 1.04 Estim Creat Clear Calc 44 Estimated GFR > 60 Glucose 339 H POC Capillary Glucose 305 H 316 H Calcium 8.6 Total Bilirubin 0.4 AST 19 ALT 14 Alkaline Phosphatase 59 Total Protein 5.9 L Albumin 3.3 L 04/14/25 11:46 WBC RBC Hgb Hct MCV MCH MCHC RDW Plt Count MPV Sodium Potassium Chloride Carbon Dioxide Anion Gap BUN Creatinine Estim Creat Clear Calc Estimated GFR Glucose POC Capillary Glucose 246 H Calcium Total Bilirubin AST ALT Alkaline Phosphatase Total Protein Albumin Discharge Plan Discharge Attending physician on discharge: Carlitos Manjarrez Consulting providers: Preeti Macias Discharging Clinician: Kimmy Unger Patient Disposition: Home Activity: as tolerated Diet: regular Discharge Instructions: Follow-up with Dr. Mills on 05/02/2025 at 2:15 p.m. Continue Webber catheter. Call the office or go to ER if passing large clots or catheter not draining Begin taking an antibiotic called Bactrim 2 times per day for 3 days. Make sure you complete this entire course of antibiotic, even if you begin to feel better. You can take Tylenol every 6 hours as needed for pain. You can take tramadol for breakthrough pain. Only take this medication for moderate to severe pain and try to decrease use of this medication over the next 1-[address] while taking this medication. Call 911 if you have shallow breathing or loss of consciousness. Patient Language: Citizen Of [place] Stand Alone Forms: General Discharge Instructions Follow-up/Referrals: Matt Mills MD [Physician] - 05/02/25 2:15 pm Discharge Medications: New sulfamethoxazole-trimethoprim [Bactrim DS] 800-160 mg tablet 1 tablet PO Q12H Qty: 6 0RF tramadol 50 mg tablet 50 mg PO Q6H PRN (Reason: pain) Qty: 20 0RF Continued omega-3 fatty acids [Super [place]-3] 1,000 mg capsule 1,000 mg PO DAILY multivitamin [Daily Multi-Vitamin] Tablet 1 tablet PO DAILY Entresto 24-26 mg tablet 1 tablet PO BID Qty: 30 0RF (DME) FreeStyle Drea 2 [place] Misc See Rx Instructions .Route Qty: 1 0RF Rx Instructions: As directed isosorbide mononitrate 60 mg tablet extended release 24 hr 60 mg PO BID Qty: 180 3RF ranolazine 500 mg tablet extended release 12 hr 500 mg PO BID carvedilol [Coreg] 3.125 mg Tablet 3.125 mg PO DAILY Patient Comments: told to stop but reduced it to daily as felt it was too much to stop Rx Instructions: must administer with a meal/food insulin glargine [Lantus Solostar U-100 Insulin] 100 unit/mL (3 mL) insulin pen 12 unit subcut QPM magnesium oxide 200 mg magnesium tablet 200 mg PO DAILY Qty: 30 0RF ferrous sulfate [Feosol] 325 mg (65 mg iron) tablet 325 mg PO DAILY Qty: 30 0RF Patient Comments: Supposed to be TID but takes 1 in AM and that 2 PM (DME) OneTouch Verio test strips Strip See Rx Instructions .ROUTE .MEDSUPPLY Qty: 200 3RF Rx Instructions: Use to test blood sugar bid, daily and as directed Trijardy XR 5-2.5-1,000 mg tablet, IR - ER, biphasic 24hr 2 tablet PO QAM Qty: 180 4RF nitroglycerin 0.4 mg tablet, sublingual 0.4 mg SUBLINGUAL Q5M PRN (Reason: chest pain) Qty: 25 2RF Patient Comments: PRN (DME) FreeStyle Drea 2 Sensor Kit See Rx Instructions .Route Qty: 13 1RF Rx Instructions: As directed levothyroxine 100 mcg tablet 100 mcg PO DAILY Qty: 90 1RF pantoprazole 20 mg tablet,delayed release (DR/EC) 20 mg PO QAM 90 Days Qty: 90 3RF (DME) pen needle, diabetic [Comfort EZ Pen [place]] 32 gauge x 5/32 needle See Rx Instructions .Route Qty: 100 3RF Rx Instructions: As directed Discontinued ciprofloxacin HCl 500 mg tablet 500 mg PO Q12H Date of admission: 04/13/25 14:59 Primary Care Provider: Jay Jay Reynoso Admitting Provider: Matt Mills Attending physician on admission: Matt Mills Condition: Improved
[2025-04-15 09:10] VITALS: RESP 18; O2SAT 99
[2025-04-15] MEDS: PANTOPRAZOLE SOD SESQUIHYDRATE 20 MG TAB PO (09:10)
[2025-04-15] MEDS: RANOLAZINE 500 MG TAB.ER.12H PO (09:10)
[2025-04-15] MEDS: CEPHALEXIN 500 MG CAPSULE PO (09:10)
[2025-04-15 11:59] LABS: Glucose Point of Care 190 mg/dl (65-105)
--- NOTE | 2025-04-15 12:53 | P.PNIM_ITS ---
Progress Note: A&P Assessment and Plan (1) Status post recent transurethral resection of prostate: Code(s): Z98.890 - Other specified postprocedural states Status: Acute Assessment and Plan: Underwent TURP 0 04/12 Monitor H&H Monitor HypoNa Complex Webber catheter placement Urology following (2) Acute on chronic blood loss anemia: Code(s): D62 - Acute posthemorrhagic anemia Status: Acute Assessment and Plan: Multifactorial Possible underlying myelodysplastic syndrome Possible to to the recent surgery TURP Dilutional anemia from surgery Blood loss from hematuria Underlying iron deficiency anemia,coagulopathy or thrombocytopenia (3) Myelodysplastic syndrome: Code(s): D46.9 - Myelodysplastic syndrome, unspecified Status: Acute Assessment and Plan: Consult stopper maker helper/oncologist as outpatient (4) Pancytopenia: Code(s): D61.818 - Other pancytopenia Status: Acute Assessment and Plan: As above (5) BPH (benign prostatic hyperplasia): Qualifiers: Lower urinary tract symptom presence: symptoms present Lower urinary tract symptom detail: urinary obstruction Qualified Code(s): N40.1 - Benign prostatic hyperplasia with lower urinary tract symptoms; N13.8 - Other obstructive and reflux uropathy Code(s): N40.0 - Benign prostatic hyperplasia without lower urinary tract symptoms Status: Acute Assessment and Plan: As above (6) CKD (chronic kidney disease), stage III: Qualifiers: Chronic kidney disease stage 3 subtype: stage 3a (GFR 45-59) Qualified Code(s): N18.31 - Chronic kidney disease, stage 3a Code(s): N18.30 - Chronic kidney disease, stage 3 unspecified Status: Acute Assessment and Plan: -monitor closely during diuresis -Avoid nephrotoxic drugs. -Monitor antihypertensive drug therapy. -Avoid NSAIDs. -Routine CMP monitoring GFR. -Monitor electrolytes especially potassium. -Antibiotic doses depending on creatinine clearance. -Pharmacy does medications. -Cr stable 1.21 appears at baseline -Routine follow-up with Nephrology as an outpatient. 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 transplanted heart: [place] heart Associated angina: without angina Qualified Code(s): I25.10 - Atherosclerotic heart disease of [place] coronary artery without angina pectoris Code(s): I25.10 - Atherosclerotic heart disease of [place] coronary artery without angina pectoris Status: Acute (9) GERD (gastroesophageal reflux disease): Qualifiers: Esophagitis presence: with esophagitis Esophagitis bleeding: without hemorrhage Qualified Code(s): K21.00 - Gastro-esophageal reflux disease with esophagitis, without bleeding Code(s): K21.9 - Gastro-esophageal reflux disease without esophagitis Status: Acute Assessment and Plan: Pantoprazole 20 mg p.o. q.d. (10) Hypothyroidism: Qualifiers: Hypothyroidism type: unspecified Qualified Code(s): E03.9 - Hypothyroidism, unspecified Code(s): E03.9 - Hypothyroidism, unspecified Status: Acute Assessment and Plan: Continue levothyroxine 100 mcg (11) Hypotension due to blood loss: Code(s): I95.89 - Other hypotension; R58 - Hemorrhage, not elsewhere classified Status: Acute Assessment and Plan: Holding antihypertensive On fluids On stress dose steroids Echocardiogram performed 2022 shows left ventricular ejection fraction 55% Repeat echocardiogram shows left ventricular ejection fraction 50-60% (12) Acute UTI: Code(s): N39.0 - Urinary tract infection, site not specified Status: Acute Assessment and Plan: Reviewed UA and urine culture Started on fluconazole until 0 04/28/2025 Vital stable Subjective Date/time seen: 04/15/25 12:53 Interval history: Patient is cleared to discharge from medical standpoint of view. Reviewed urine culture. Patient will be started on fluconazole 200 mg p.o. q.d. for 14 days the Patient needs to follow-up with PCP. Review of Systems Review of Systems: 12 systems were reviewed with pertinent positives and negatives per HPI. Except as documented in the HPI, all other systems were reviewed and are negative. Exam Narrative: General: Awake, alert, comfortable, no acute distress HEENT: Normocephalic, atraumatic, sclerae anicteric Respiratory: Normal respiratory effort, no accessory muscle use Abdomen: Nondistended, soft, nontender : Webber catheter draining clear yellow urine Skin: Normal coloration, warm and dry Neurologic: No focal neuro deficits noted Psychiatric: Appropriate mood and affect, judgment and insight intact Const: Other: No acute distress, appears younger than stated age, appropriate mood and affect HENMT: Other: Mucous membranes are moist, no oral pharyngeal erythema, good dentition Eyes: Other: Positive conjunctival pallor, no scleral icterus Neck: Other: No JVD, no lymphadenopathy Resp: Other: Clear to auscultation bilaterally, no increased work of breathing Cardio: Other: Regular rate, regular rhythm, 2/6 systolic murmur heard best at the left upper sternal border, no JVD, 2+ bilateral radial pedal pulses GI: Other: Soft, nontender, nondistended, positive bowel sounds : Other: Three way catheter in place with continuous bladder irrigation urine is clear Skin: Other: Darkly tanned, no petechiae, no large areas of bruising Neuro: Other: Patient is alert oriented x4, speech is clear, moderate hearing loss, no localizing neurologic deficits noted during the course of conversation Extrem: Other: No clubbing, cyanosis or edema, normal range of motion of bilateral upper and lower extremity Psych: Other: Jovial, loquacious, appropriate judgment and insight Objective Data Vital Signs Vital Signs: Vital Signs - 24 hr 04/14/25 14:00 04/14/25 20:00 04/14/25 22:04 Temperature 97.9 F 98.0 F Pulse Rate 66 60 60 Respiratory Rate 16 18 18 Blood Pressure 97/66 L 102/50 L Pulse Oximetry 100 99 99 Oxygen Delivery Room Air 04/15/25 06:05 04/15/25 09:10 Temperature 98.2 F Pulse Rate 73 Respiratory Rate 18 18 Blood Pressure 117/60 Pulse Oximetry 99 99 Oxygen Delivery Room Air Intake/Output Intake/Output: Intake & Output 04/12/25 04/13/25 04/14/25 04/15/25 23:59 23:59 23:59 23:59 Intake Total 390 2732 1070 240 Output Total 5638 1705 1700 Balance -5223 108 -680 240 Meds/Results Medications: Active Medications Generic Name Dose Route Start Last Admin Trade Name Freq PRN Reason Stop Dose Admin Hydrocodone Bitart/Acetaminophen 1 tab 04/12/25 15:09 04/12/25 15:50 Hydrocodone/Acetaminophen (*Crx) 5-325 Mg Tablet PO 1 tab Q4H PRN Administration Pain Rated 1-6 Carvedilol 3.125 mg 04/13/25 09:00 Carvedilol 3.125 Mg Tablet PO DAILY TROY Cephalexin HCl 500 mg 04/12/25 21:00 04/15/25 09:10 Cephalexin 500 Mg Capsule PO 500 mg Q12HR TROY Administration Dextrose 12.5 gm 04/12/25 19:47 Dextrose 50% 25 Gm/50 Ml Syringe IV PUSH PRN PRN Hypoglycemia Protocol Docusate Sodium 100 mg 04/12/25 17:00 04/15/25 09:10 Docusate Sodium 100 Mg Capsule PO Not Given BID TROY Fluconazole 100 mg 04/16/25 09:00 Fluconazole 100 Mg Tablet PO 04/28/25 09:01 QAM TROY Glucagon 1 mg 04/12/25 19:47 Glucagon For Inj 1 Mg Vial IM PRN PRN Hypoglycemia Protocol Glucose 15 gm 04/12/25 19:47 Glucose Oral Gel 15 Gm Of Glucse In 37.5 Gm Tube PO PRN PRN Hypoglycemia Protocol Hyoscyamine 0.125 mg 04/12/25 15:09 Hyoscyamine Sulfate 0.125 Mg Tablet SUBLINGUAL Q6H PRN Bladder Spasm Dextrose 1,000 mls @ 100 mls/hr 04/12/25 19:47 Dextrose 5% 1,000 Ml IVPB PRN PRN Hypoglycemia Protocol Insulin Aspart 2 - 5 units 04/13/25 08:00 04/15/25 12:06 Insulin Aspart (*Bkc) 100 Units/Ml SUB-Q Not Given [facility] Protocol Insulin Aspart 1 - 2 units 04/14/25 21:00 04/14/25 20:38 Insulin Aspart (*Bkc) 100 Units/Ml SUB-Q 2 units HS TROY Administration Protocol Insulin Glargine 12 units 04/12/25 18:00 04/14/25 16:44 Insulin Glargine (*Bkc) 100 Units/Ml SUB-Q 12 units QPM TROY Administration Isosorbide Mononitrate 60 mg 04/12/25 17:00 04/12/25 17:40 Isosorbide Mononitrate 60 Mg Tab.Er.24h PO 60 mg BID TROY Administration Levothyroxine Sodium 100 mcg 04/13/25 06:30 04/15/25 06:09 Levothyroxine Sodium 100 Mcg Tablet PO 100 mcg DAILY@0630 TROY Administration Morphine Sulfate 2 mg 04/12/25 15:09 Morphine Sulfate (*Crx) 2 Mg/Ml Inj IV PUSH Q2H PRN Pain Rated 7-10 Naloxone HCl 0.1 mg 04/12/25 15:09 Naloxone Hcl 0.4 Mg/Ml Vial IV PUSH Q2M PRN Opiate Reversal Nitroglycerin 0.4 mg 04/12/25 15:09 Nitroglycerin Sl 0.4 Mg Tablet SUBLINGUAL Q5M PRN chest pain Ondansetron HCl 4 mg 04/12/25 15:09 Ondansetron Inj 4 Mg/2 Ml Vial IV PUSH Q12H PRN Nausea And Vomiting Pantoprazole Sodium 20 mg 04/13/25 09:00 04/15/25 09:10 Pantoprazole Sod Sesquihydrate 20 Mg Tab PO 20 mg QAM TROY Administration Polyethylene Glycol 17 gm 04/14/25 07:27 Polyethylene Glycol 3350 17 Gm Powd.Pack PO QAM PRN Constipation Ranolazine 500 mg 04/12/25 21:00 04/15/25 09:10 Ranolazine 500 Mg Tab.Er.12h PO 500 mg Q12HR TROY Administration Sacubitril/Valsartan 1 tab 04/12/25 21:00 04/12/25 20:24 Sacubitril/Valsartan 24-26 Mg Tablet PO 1 tab Q12HR TROY Administration Labs Labs: Laboratory Results - last 24 hr 04/14/25 04/14/25 04/14/25 15:31 16:36 20:23 WBC 5.4 RBC 2.67 L Hgb 9.0 L Hct 28.1 L MCV 105.2 H D MCH 33.7 D MCHC 32.0 RDW 21.4 H Plt Count 213 MPV 9.6 Sodium 136 L Potassium 4.3 Chloride 106 Carbon Dioxide 22 Anion Gap 8 BUN 25 H Creatinine 1.04 Estim Creat Clear Calc 44 Estimated GFR > 60 Glucose 339 H POC Capillary Glucose 316 H 305 H Calcium 8.6 Total Bilirubin 0.4 AST 19 ALT 14 Alkaline Phosphatase 59 Total Protein 5.9 L Albumin 3.3 L 04/14/25 04/15/25 04/15/25 21:09 04:49 08:20 WBC 5.5 RBC 2.78 L Hgb 9.2 L 9.2 L Hct 27.6 L 28.3 L MCV 101.8 H MCH 33.1 MCHC 32.5 RDW 20.3 H Plt Count 233 MPV 9.8 Sodium 139 Potassium 4.1 Chloride 106 Carbon Dioxide 27 Anion Gap 6 BUN 25 H Creatinine 1.10 Estim Creat Clear Calc 41 Estimated GFR > 60 Glucose 221 H POC Capillary Glucose 211 H Calcium 8.5 Total Bilirubin 0.4 AST 15 L ALT 9 Alkaline Phosphatase 53 Total Protein 5.8 L Albumin 3.0 L 04/15/25 11:55 WBC RBC Hgb Hct MCV MCH MCHC RDW Plt Count MPV Sodium Potassium Chloride Carbon Dioxide Anion Gap BUN Creatinine Estim Creat Clear Calc Estimated GFR Glucose POC Capillary Glucose 190 H Calcium Total Bilirubin AST ALT Alkaline Phosphatase Total Protein Albumin Quality VTE Prophylaxis VTE prophylaxis: mechanical ordered (ALEXISs and Ramesh lopes) Hospitalist MIPS Advance Care Plan I have confirmed that the patient's Advanced Care Plan is present, code status is documented, or surrogate decision maker is listed in patient medical record.: Yes Medication Reconciliation I have utilized all available resources to obtain, update and review the patients current medications (includes all prescriptions, OTC, herbals, cannabis, and nutritional supplements).: Yes
== END 2025-04-15 14:20 | disposition home or self-care (01) ==
LOC: ANHSURGERY 15:03 → ANH2MED 04-15 09:13
PROVIDERS: Anesthesiology; General Practice; Internal Medicine; Admitting Provider Urology; PCP Family Medicine; Visit Provider Urology
PROC: 0VT08ZZ Resection of Prostate, Via Natural or Artificial Opening Endoscopic (ICD-10-PCS; CPT 52601; principal; 2025-04-12 12:00)
DX: N40.1 Benign prostatic hyperplasia with lower urinary tract symptoms (principal); N13.8 Other obstructive and reflux uropathy; R33.8 Other retention of urine; R31.0 Gross hematuria; N41.0 Acute prostatitis; N41.1 Chronic prostatitis; N34.2 Other urethritis; N31.2 Flaccid neuropathic bladder, not elsewhere classified; D62 Acute posthemorrhagic anemia; D50.9 Iron deficiency anemia, unspecified; D61.818 Other pancytopenia; I95.89 Other hypotension; R58 Hemorrhage, not elsewhere classified; E11.22 Type 2 diabetes mellitus with diabetic chronic kidney disease; I13.10 Hypertensive heart and chronic kidney disease without heart failure, with stage 1 through stage 4 chronic kidney disease, or unspecified chronic kidney disease; N18.31 Chronic kidney disease, stage 3a; E11.42 Type 2 diabetes mellitus with diabetic polyneuropathy; G62.89 Other specified polyneuropathies; I25.10 Atherosclerotic heart disease of native coronary artery without angina pectoris; K21.00 Gastro-esophageal reflux disease with esophagitis, without bleeding; D46.9 Myelodysplastic syndrome, unspecified; E03.9 Hypothyroidism, unspecified; Z79.4 Long term (current) use of insulin; Z79.84 Long term (current) use of oral hypoglycemic drugs; Z79.899 Other long term (current) drug therapy; Z88.0 Allergy status to penicillin; Z86.73 Personal history of transient ischemic attack (TIA), and cerebral infarction without residual deficits; Z96.642 Presence of left artificial hip joint
CPT/HCPCS: 52601; 36415; 36430; 80048; 80053; 82948; 83735; 84443; 85014; 85018; 85027; 85610; 85730; 86850; 86900; 86901; 86923; 88305; A9270; C8929; G0378; J0690; J1720; J1815; J2405; J2704; J3010; J7120; P9016; Q9957

== ENCOUNTER 2025-04-25 08:52 | Outpatient (CLI) | payer MEDICARE, SELFPAY ==
--- OUTSIDE RECORDS SUMMARY | 2025-04-25 08:59 | XMS_ITS | Encounter Summary ---
Author Organization [employer] Address 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
--- OUTSIDE RECORDS SUMMARY | 2025-04-25 08:59 | XMS_ITS ---
Author Organization [facility] Address [address] [facility] [address] [place] [address] Care Team Providers Care Ammunition Specialist Name Role Phone Jay Jay Reynoso Primary Care Provider Unavaila Jay Jay King Unavailable [phone] Alka Reynoso MD Unavailable Unavailabl e REASON FOR VISIT Neck pain Medications Medication SIG (Take, Route, Frequency, Duration) Notes Start Date End Date Status metFORMIN HCl 1000 MG 1 tablet with a me al Orally Once a day; Duration: 30 day(s) Active Aspir-81 Active Insulin Aspart 100 UNIT/ML as directed Subcutaneous Active Levothyroxine Sodium 50 MCG 1 tablet in the morning on an empty stomach Orally Once a day; Duration: 30 day(s) Active Jardiance 10 MG 1 tablet Orally Once a day; Duration: 30 day(s) Active Entresto 24-26 MG 1 tablet Orally Twic e a day; Duration: 30 day(s) Active Isosorbide Dinitrate 40 MG 1 tablet Oral ly Twice a day; Duration: 30 day(s) Active Social History Tobacco Use: [...] Provider Diagnosis -[facility] [address] [place] [address] 12/28/2023 Jay Jay Howard Plan Of Treatment No Information Progress Notes * Angely RAMIREZ:1944 (79 yo M)Acc No.[id number]:12/28/2023 Progress Note Patient: Kai TAVAREZ Provider: Mariel Howard MD :1945 A ge:78 Y S ex:Male Date:12/28/2023 Address:[address] [place] [address] [id number] Pcp:Jay Jay Reynoso Subjective: * Chief Complaints: [...] Electronic signature of Blue Howard MD on 04/25/2025 at 08:59 AM CDT Sign off status: Pending * Provider: Mairel Howard MD Date: 12/28/2023 Generated for Cody uriostegui/Ibrahima/Crystal on: 04/25/2025 08:59 AM CDT
--- OUTSIDE RECORDS SUMMARY | 2025-04-25 08:59 | XMS_ITS | Clinical Summary ---
Author Organization [facility] [employer] Address [address] [place] [address] Care Team Providers Care Project Manager/Design Manager Name Role Phone Jay Jay Reynoso MD Primary Care Provider [phone] Source Comments [facility],non-[facility] Affiliates and Associated Physician Practices is amultiple site organization consisting of ambulatory clinics and hospital sitesin [place], [place], [place] and [place]. This disclosure is being madepursuant to the Care Everywhere program and may not contain all information available regarding this patient. Last updated 18.[facility] Allergies Active Allergy Reactions Criticality Noted Date [...] on file Legal Sex Male 6:18 AM PSYCH TECH Gender Identity Male 04/11/2021 8:06 AM CDT Sexual Orientation Not on file Last Filed Vital Signs Vital Sign Reading Time Taken Comments Blood Pressure 107/71 12/22/2022 2:45 PM PSYCH TECH Pulse 72 12/22/2022 2:45 PM PSYCH TECH Temperature 36.8 C (98.2 F) 12/22/2022 2:45 PM PSYCH TECH Respiratory Rate 16 12/22/2022 2:45 PM PSYCH TECH Oxygen Saturation 98% 12/22/2022 2:45 PM PSYCH TECH Inhaled Oxygen Concentration - - Weight 68 kg (150 lb) 12/22/2022 10:19 AM PSYCH TECH Height 165.1 cm (5' 5) 12/22/2022 9:57 AM PSYCH TECH Body Mass Index 24.96 12/22/2022 9:57 AM PSYCH TECH Plan of Treatment Health Maintenance Due Date [...] to complete this topic [place] [address] UHC MANAGED MEDICARE ADV UHC MANAGED MEDICARE ADV SELF PAY NO INSURANCE Member Subscriber Plan / Payer (Ef fective for All Dates) Name:AshleyDarien perez Member ID:Not on file Relation to Subscriber:Not on file Name:ASHLEYDARIEN PEREZ Subscriber ID:Not on file (Home) Address: [address] [place] [address] [place] [address] Payer ID:Not on file Group ID:Not on file Type:Self Pay Address: [place], [place] SELF PAY NO INSURANCE Member Subscriber Plan / Payer (Ef fective for All Dates) Name:Ashley Darien Member ID:Not on file Relation to Subscriber:Not on file Name:ASHLEYDARIEN Subscriber ID:Not on file Address: [address] [place] [address] Payer ID:Not on file Group ID:Not on file Type:Self Pay Address: [employer] [facility] MANAGED MEDICARE ADV SELF PAY NO INSURANCE Member Subscriber Plan / Payer (Ef fective for All Dates) Name:Darien Ramirez Member ID:Not on file Relation to Subscriber:Not on file Name:DARIEN RAMIREZ Subscriber ID:Not on file Address: [address] [place] [address] Payer ID:Not on file Group ID:Not on file Type:Self Pay Address: [employer] MANAGED MEDICARE ADV SELF PAY NO INSURANCE Member Subscriber Plan / Payer (Ef fective for All Dates) Name:Darien Ramirez Member ID:Not on file Relation to Subscriber:Not on file Name:DARIEN RAMIREZ Subscriber ID:Not on file Address: [address] [place] [address] Payer ID:Not on file Group ID:Not on file Type:Self Pay Address: [employer] MANAGED MEDICARE ADV Care Teams Project Manager/Design Manager Relationship Specialty Start Date End Date Jay Jay Reynoso MD [address] [place] [phone] PCP - General 03/29/12
--- OUTSIDE RECORDS SUMMARY | 2025-04-25 08:59 | XMS_ITS | Clinical Summary ---
Author Organization [facility] [address] [facility] Address [address] [place] [address] Care Team Providers Care Clinical Trials Nurse Name Role Phone Jay Jay Reynoso MD Unavailable Jay Jay Reynoso MD Primary Care Provider [phone] Allergies Active Allergy Reactions Criticality Noted Date [...] (100 mg total) by mouth daily Active -iwc l-Aazbxkua-ycw al 27 mg iron-1.13 mg-581.92 mg capsule [...] (06/22/2019): Added automatically from request for surgery [id number] Chest pain 06/22/2019 Overview (06/22/2019): Added automatically from request for surgery [id number] Encounters Date Type Department Care Team Description 04/05/2025 Telephone [facility] Cardiology [address] [place] [address] Riccardo Chang MD Leg Swelling; [...] week 08/03/2023 How often do you attend [facility] or congregational services? 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 Gender Identity Not on file Sexual Orientation [...] history exists Medical Devices Implanted Type Area Press Tender Smoke Signal Device Identifier Shelf Expiration Date Model / Serial / Lot [facility] Zet Universe [id number] Device Closure Angio-Seal Vip Bondek-Plus Polyglyd L70 Cm Od6 Fr Odsec.035 In Vascular - [id number] Implanted:Qty: 1 on 07/19/2019 by Riccardo Chang MD at [facility]/[employer] 01/22/2020 [id number] / / [employer] Inc Device Closure Vascade Od5 Fr Femoral Artery [id number] - [id number] Implanted:Qty: 1 on 11/04/2022 by Riccardo Chang MD at [facility] 700-500DX-0 5U / / Giron & Nephew/Richco/ Ortho R3 56mm 3 Hole Hip Standard Shell Acetabular [id number] - [id number] Implanted:Qty: 1 on 08/02/2023 by Galileo Klein MD at [facility] Left: Hip Giron [employer] Nephew/Richco/Or tho [id number] 09/16/2031 [id number] / / [id number] Giron & Nephew/Richco/ Ortho R3 56mm 40mm 20d Liner Acetabular Xlpe [id number] - [id number] Implanted:Qty: 1 on 08/02/2023 by Galileo Klein MD at [facility] Left: Hip G[employer] Nephew/Richco/Or tho [id number] 05/01/2033 [id number] / / [id number] G[employer] Nephew/Richco/ Ortho Polarstem Cementless Hip 6 Standard Stem Femoral Titanium Mcintosh [id number] - [id number] Implanted:Qty: 1 on 08/02/2023 by Galileo Klein MD at [facility] Left: Hip G[employer] Nephew/Richco/Or tho [id number] 04/15/2029 [id number] / / [id number] Giron [employer] Nephew/Richco/ Ortho 40mm Modular Hip Head Femoral Oxinium [id number] - [id number] Implanted:Qty: 1 on 08/02/2023 by Galileo Klein MD at [facility] Left: Hip Giron [employer] Nephew/Richco/Or tho [id number] 04/29/2033 [id number] / / [id number] Giron & Nephew/Richco/ Ortho Modular Neck Hip +0mm 12/14 Taper Sleeve Femoral Titanium [id number] - [id number] Implanted:Qty: 1 on 08/02/2023 by Galileo Klein MD at [facility] Left: Hip G[employer] Nephew/Richco/Or tho [id number] 04/25/2033 [id number] / / [id number] Procedures Procedure Name Priority Date/Time Associated Diagnosis Comments POCT LIPID PANEL Routine 01/09/2025 1:48 PM CDT Coronary artery disease of [place] artery of [place] heart with stable angina pectoris EGFR Routine [...] [address] Department [place] [address] from Last 3 Months or Most Recently Relevant to Health Maintenance Insurance Member Subscriber Plan / Payer (Ef fective 2022-Present) Name:Darien Guzman Relation to Subscriber:Self Name:Darien Guzman Payer ID:[id number] (NAIC) Type:[place] [employer] Address: [place] [id number] Advance Directives For more information, please contact: [phone] * Full Code (Latest Code Status on File) Date Activated Date Inactivated Comments 08/02/2023 9:03 AM 08/03/2023 8:37 PM Care Teams Clinical Trials Nurse Relationship Specialty Start Date End Date Jay Jay Reynoso MD PCP - General Family Medicine 09/08/20 Jay Jay Reynoso MD Family Medicine 11/29/19
--- OUTSIDE RECORDS SUMMARY | 2025-04-25 08:59 | XMS_ITS | Clinical Summary ---
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
--- OUTSIDE RECORDS SUMMARY | 2025-04-25 08:59 | XMS_ITS | Patient Health Record ---
Author Organization [facility] Address [address] [place] [address] Care Team Providers Care Javascript Front End Developer Name Role Phone Jay Jay Reynoso Primary Care Provider Jay Jay Beck Unavailable [phone] Alka Reynoso MD Unavailable Unavailabl e Allergies [...] Risk Notes Problem Fear of medical treatment (353556568) Fear of injections and transfusions (F40.231) Active confirmed Problem Unilateral primary osteoarthritis, left hip (M16.12) Active confirmed Problem Cervical spondylosis without myelopathy (585234365) Spondylosis without myelopathy or radiculopathy, cervical region (M47.812) Active confirmed Plan Of Treatment Pending Test Test Name Order Date X ray : Hip, left 05/02/2023 Insurance Providers Payer Name Payer Address Payer Phone Subscriber Number Group Number Insured Name Patient Relationship to Insured Coverage Start Date Coverage End Date [employer] Medicare Advantage [address] [address] [place] [address] [id number] Kai Stewart Self - patient is the insured Medical (General) History Medical History History ICD Code Arthritis: Yes Congestive Heart Failure: Yes Diabetes, type I: Yes High blood pressure: Yes Surgical History Surgery Date(Month/Year)
--- OUTSIDE RECORDS SUMMARY | 2025-04-25 08:59 | XMS_ITS | Encounter Summary ---
Author Organization [employer] Address [address] [place] [address] Care Team Providers Care Blending Tank Tender Helper Name Role Phone Unavailable Primary Care Provider Unavailabl e Encounter Details Date Type Department Care Team (Late st Contact Info) Description 11/13/1999 Outpatient Historical Division of Neurology [address] [facility] [address] [address] (Excluded Provider) [place] [address] [facility] [address] [place] [address] Social History Tobacco Use Types Packs/Day Years Used Date Smoking Tobacco: Never Assessed Sex and Gender Information Value Date Recorded Sex Assigned at Not on file 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
--- OUTSIDE RECORDS SUMMARY | 2025-04-25 08:59 | XMS_ITS | Referral Summary ---
Author Organization [facility] [address] [facility] Address [address] [place] [address] Care Team Providers Care Drum Plater Name Role Phone Jay Jay Reynoso MD Unavailable [phone] Jay Jay Reynoso MD Primary Care Provider [phone] Encounters Date Type Department Care Team Description 04/05/2025 Telephone [facility] Cardiology [address] [facility] [address] [place] [address] Riccardo Chang MD Leg Swelling; [...] (100 mg total) by mouth daily Active -clw u-Wtidabxw-fqg al 27 mg iron-1.13 mg-581.92 mg capsule [...] (06/22/2019): Added automatically from request for surgery [id number] Chest pain 06/22/2019 Overview (06/22/2019): Added automatically from request for surgery [id number] Social History Tobacco Use Types Packs/Day Years [...] How often do you attend chur or buddhism services? 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 Gender Identity Not on file Sexual [...] on file Medical Devices Implanted Type Area Industrial Tractor Driver Device Identifier Shelf Expiration Date Model / Serial / Lot [employer] [id number] Device Closure Angio-Seal Vip Bondek-Plus Polyglyd L70 Cm Od6 Fr Odsec.035 In Vascular - [id number] Implanted:Qty: 1 on 07/19/2019 by Riccardo Chang MD at [facility] 01/22/2020 [id number] / / Cardiva Medical Inc Device Closure Vascade Od5 Fr Femoral Artery [id number] - [id number] Implanted:Qty: 1 on 11/04/2022 by Riccardo Chang MD at [facility] 700-500DX-0 5U / / Giron & Nephew/Richco/ Ortho R3 56mm 3 Hole Hip Standard Shell Acetabular [id number] - [id number] Implanted:Qty: 1 on 08/02/2023 by Galileo Klein MD at [facility] Left: Hip Giron [employer] Nephew/Richco/Or tho [id number] 09/16/2031 [id number] / / [id number] Giron & Nephew/Richco/ Ortho R3 56mm 40mm 20d Liner Acetabular Xlpe [id number] - [id number] Implanted:Qty: 1 on 08/02/2023 by Galileo Klein MD at [facility] Left: Hip Giron [employer] Nephew/Richco/Or tho [id number] 05/01/2033 [id number] / / [id number] Giron [employer] Nephew/Richco/ Ortho Polarstem Cementless Hip 6 Standard Stem Femoral Titanium Mcintosh [id number] - [id number] Implanted:Qty: 1 on 08/02/2023 by Galileo Klein MD at [facility] Left: Hip Giron [employer] Nephew/Richco/Or tho [id number] 04/15/2029 [id number] / / [id number] Giron [employer] Nephew/Richco/ Ortho 40mm Modular Hip Head Femoral Oxinium 85985905 - [id number] Implanted:Qty: 1 on 08/02/2023 by Galileo Klein MD at [facility] Left: Hip Giron [employer] Nephew/Richco/Or tho [id number] 04/29/2033 [id number] / / [id number] Giron & Nephew/Richco/ Ortho Modular Neck Hip +0mm 12/14 Taper Sleeve Femoral Titanium [id number] - [id number] Implanted:Qty: 1 on 08/02/2023 by Galileo Klein MD at [facility] Left: Hip Giron [employer] Nephew/Richco/Or tho [id number] 04/25/2033 [id number] / / [id number] Procedures Procedure Name Priority Date/Time Associated Diagnosis Comments POCT LIPID PANEL Routine 01/09/2025 1:48 PM CDT Coronary artery disease of [place] artery of [place] heart with stable angina pectoris EGFR Routine [...] LAB BLOOD ORDERABLES Final Res ult [facility] [address] [facility] [place] [address] from Last 3 Months or Most Recently Relevant to Health Maintenance Insurance [facility] Address: [address] [address] [facility] MEDICARE ADVANTAGE [facility] Address: [address] [address] [place] [address] [facility] MEDIC[facility] ADVANTAGE [facility] Address: [facility] [address] [place] [address] Advance Directives For more information, please contact: [phone] * Full Code (Latest Code Status on File) Date Activated Date Inactivated Comments 08/02/2023 9:03 AM 08/03/2023 8:37 PM Care Teams Drum Plater Relationship Specialty Start Date End Date Jay Jay Reynoso MD PCP - General Family Medicine 09/08/20 Jay Jay Reynoso MD Family Medicine 11/29/19
--- OUTSIDE RECORDS SUMMARY | 2025-04-25 08:59 | XMS_ITS | Encounter Summary ---
Author Organization [employer] Address [address] [place] [address] Care Team Providers Care Dimension Quarry Supervisor Name Role Phone Unavailable Primary Care Provider Unavailabl e Encounter Details Date Type Department Care Team (Late st Contact Info) Description 12/01/1999 Outpatient Historical [facility] MRI DEPT Jay Jay Reynoso MD [address] [place] [address] Amyotrophic lateral sclerosis (CMS/HCC) (Primary Dx) Social History Tobacco Use Types Packs/Day Years Used Date Smoking Tobacco: Never Assessed Sex and Gender Information Value Date Recorded Sex Assigned at Not on file Legal Sex Male 4:08 AM SLEEVE SETTER 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
--- OUTSIDE RECORDS SUMMARY | 2025-04-25 08:59 | XMS_ITS | Encounter Summary ---
Author Organization [employer] Address 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
--- OUTSIDE RECORDS SUMMARY | 2025-04-25 08:59 | XMS_ITS | Encounter Summary ---
Author Organization [facility] Address [address] [place] [address] Phone Care Team Providers Care City Superintendent Of Schools Name Role Phone Diego Nunez MD Primary Care Provider Jay Jay Reynoso MD Unavailable [phone] Rosibel Rodrigues DPT Unavailable [phone] Jay Jay Reynoso MD Primary Care Provider [phone] Encounter Details Date Type Department Care Team (Late st Contact Info) Description 07/16/2020 Telephone [facility] Physical Therapy [address] [address] Fidelia Macias, B.A. 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 Care Teams City Superintendent Of Schools Relationship Specialty Start Date End Date Diego Nunez MD [address] [facility] [address] [place] [address] PCP - General Internal Medicine 11/29/19 09/07/20 Jay Jay Reynoso MD [address] [facility] [address] [place] [address] PCP - General Family Medicine 09/08/20 Jay Jay Reynoso MD [address] [facility] [address] [place] [address] Family Medicine 11/29/19 Rosibel Rodrigues DPT [address] [facility] [address] [place] [address] Physical Therapist Physical Therapy 06/25/20 09/01/20 documented as of this encounter
--- OUTSIDE RECORDS SUMMARY | 2025-04-25 08:59 | XMS_ITS | Encounter Summary ---
Author Organization [employer] Address [address] [place] [address] Care Team Providers Care Sales Center Manager Name Role Phone Unavailable Primary Care Provider Unavailabl e Encounter Details Date Type Department Care Team (Late st Contact Info) Description 12/14/1999 Outpatient Historical Division of Neurology [address] [facility] [address] [address] (Excluded Provider) [place] [address] 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
--- OUTSIDE RECORDS SUMMARY | 2025-04-25 08:59 | XMS_ITS | Encounter Summary ---
Author Organization [employer] Address [address] [place] [address] Care Team Providers Care Bi Data Architect Name Role Phone Unavailable Primary Care Provider Unavailabl e Encounter Details Date Type Department Care Team (Late st Contact Info) Description 01/26/2000 Outpatient Historical Division of Neurology [address] [facility] [address] [address] (Excluded Provider) [place] [address] [address] [facility] [address] [place] [address] Social History Tobacco Use Types Packs/Day Years Used Date Smoking Tobacco: Never Assessed Sex and Gender Information Value Date Recorded Sex Assigned at Not on file 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
[2025-04-25 12:49] LABS: Hematocrit 31.5 % (42.0-52.0); Hemoglobin 9.8 g/dL (14.0-18.0); Immature Granulocyte Percent A 0.5 % (0-0.5); Lymphocytes Absolute Auto 1.68 K/mm3 (0.9-3.2); Mean Corpuscular HGB Conc 31.1 g/dl (32-36); Mean Corpuscular Hemoglobin 34.3 pg (26-34); Mean Corpuscular Volume 110.1 fl (80-100); Nucleated Red Blood Cells Absolute Auto 0.000 K/mm3 (0.0-0.012); Nucleated Red Blood Cells Perc 0.0 % (0.0-0.2); Platelet Count Result 229 k/mm3 (150-375); Red Blood Count 2.86 M/mm3 (4.6-6.20); White Blood Count 3.9 K/mm3 (4.5-10.0)
[2025-04-25 13:01] LABS: Alanine Aminotransferase 15 U/L (6-50); Albumin Level 3.8 g/dL (3.5-5.1); Alkaline Phosphatase 72 U/L (38-126); Anion Gap 8 mmol/L (4-12); Aspartate Amino Transferase 44 U/L (17-59); Bilirubin,Total 0.3 mg/dL (0.2-1.3); Blood Urea Nitrogen 28 mg/dL (9-20); Calcium 9.0 mg/dL (8.4-10.2); Carbon Dioxide 29 mmol/L (22-30); Chloride 104 mmol/L (98-107); Estimated Glomerular Filt Rate 54; Glucose 107 mg/dL (65-110); Sodium 141 mmol/L (137-145); Total Protein 6.7 g/dL (6.3-8.2)
[2025-04-25 13:05] LABS: Potassium 4.4 mmol/L (3.4-5.0)
[2025-04-25 14:59] LABS: Hypochromasia 1+; Macrocytosis 1+ (NORMAL); Schistocytes None Seen
== END 2025-04-25 08:53 | disposition home or self-care (01) ==
PROVIDERS: PCP Family Medicine; Visit Provider Family Medicine
DX: D62 Acute posthemorrhagic anemia (principal); E11.21 Type 2 diabetes mellitus with diabetic nephropathy
CPT/HCPCS: 36415; 80053; 85025

== ENCOUNTER 2025-06-11 09:17 | Outpatient (CLI) | payer MEDICARE, SELFPAY ==
--- NOTE | ~2025-06-11 | XR_ITS ---
XR hip RT 2V w AP pelvis 06/11/2025 09:53 Indication: Right hip pain for 2 months Procedure: 4 views right hip including AP pelvis Comparison: 02/01/2014 Findings: There is a left total hip arthroplasty. There is lower lumbar spondylosis. There is a right pseudoarticulation at L5-S1. Pelvic rings intact. Extensive atherosclerosis. Stable moderate osteoarthritis of the right hip. No acute fracture, subluxation or dislocation. Stable subtle sclerosis right ilium, likely benign bone island. Impression: 1: Moderate osteoarthritis of the right hip, unchanged. Reviewed, dictated and finalized at location A. Impression: 1: Moderate osteoarthritis of the right hip, unchanged.
== END 2025-06-11 09:18 | disposition home or self-care (01) ==
LOC: GOSHIMG 09:17
PROVIDERS: PCP Nurse Practitioner Family; Visit Provider Nurse Practitioner Family
DX: M16.11 Unilateral primary osteoarthritis, right hip (principal)
CPT/HCPCS: 73502

== ENCOUNTER 2025-08-02 13:41 | Outpatient (CLI) | payer MEDICARE, SELFPAY ==
[2025-08-02 14:42] LABS: Hematocrit 31.6 % (42.0-52.0); Hemoglobin 10.2 g/dL (14.0-18.0); Immature Granulocyte Percent A 0.3 % (0-0.5); Immature Platelet Fraction Pct 3.6 % (0.9-11.2); Lymphocytes Absolute Auto 1.63 K/mm3 (0.9-3.2); Mean Corpuscular HGB Conc 32.3 g/dl (32-36); Mean Corpuscular Hemoglobin 37.1 pg (26-34); Mean Corpuscular Volume 114.9 fl (80-100); Nucleated Red Blood Cells Absolute Auto 0.000 K/mm3 (0.0-0.012); Nucleated Red Blood Cells Perc 0.0 % (0.0-0.2); Platelet Count Result 162 k/mm3 (150-375); Red Blood Count 2.75 M/mm3 (4.6-6.20); White Blood Count 3.3 K/mm3 (4.5-10.0)
[2025-08-02 14:51] LABS: Alanine Aminotransferase 14 U/L (6-50); Albumin Level 4.1 g/dL (3.5-5.1); Alkaline Phosphatase 59 U/L (38-126); Anion Gap 8 mmol/L (4-12); Aspartate Amino Transferase 20 U/L (17-59); Bilirubin,Total 0.3 mg/dL (0.2-1.3); Blood Urea Nitrogen 30 mg/dL (9-20); Calcium 9.0 mg/dL (8.4-10.2); Carbon Dioxide 25 mmol/L (22-30); Chloride 105 mmol/L (98-107); Estimated Glomerular Filt Rate 45; Glucose 184 mg/dL (65-110); Potassium 4.9 mmol/L (3.4-5.0); Sodium 138 mmol/L (137-145); Total Protein 7.0 g/dL (6.3-8.2)
[2025-08-02 15:23] LABS: Anisocytosis 1+; Macrocytosis 1+ (NORMAL); Ovalocytes Occasional; Schistocytes None Seen
[2025-08-02 15:27] LABS: Thyroid Stimulating Hormone 1.560 uIU/mL (0.465-4.680)
== END 2025-08-02 13:42 | disposition home or self-care (01) ==
PROVIDERS: PCP Family Medicine; Visit Provider Nurse Practitioner Adult Health
DX: R94.31 Abnormal electrocardiogram [ECG] [EKG] (principal); I25.112 Atherosclerotic heart disease of native coronary artery with refractory angina pectoris; E78.5 Hyperlipidemia, unspecified
CPT/HCPCS: 36415; 80053; 84443; 85025; 85055

== ENCOUNTER 2025-08-05 10:30 | Outpatient (CLI) | payer MEDICARE, SELFPAY ==
--- OUTSIDE RECORDS SUMMARY | 2025-08-05 11:33 | XMS_ITS | Encounter Summary ---
Author Organization [employer] Address [address] [place] [address] Care Team Providers Care Manufacturing Plant Manager Name Role Phone Unavailable Primary Care Provider Unavailabl e Encounter Details Date Type Department Care Team (Late st Contact Info) Description 11/13/1999 Outpatient Historical Division of Neurology [address] [facility] [address] [address] (Excluded Provider) [place] [address] [facility] [address] [place] [address] Social History Tobacco Use Types Packs/Day Years Used Date Smoking Tobacco: Never Assessed Sex and Gender Information Value Date Recorded Sex Assigned at Not on file Legal Sex Male 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
--- OUTSIDE RECORDS SUMMARY | 2025-08-05 11:33 | XMS_ITS | Encounter Summary ---
Author Organization [employer] Address [address] [place] [address] Care Team Providers Care Street Cleaning Equipment Operator Name Role Phone Unavailable Primary Care Provider Unavailabl e Encounter Details Date Type Department Care Team (Latest Contact Info) Description 12/04/1999 Outpatient Historical [facility] Fabio Sanchez MD [address] [facility] [address] [address] Nerv/musculskel sym NEC (Primary Dx) Social History Tobacco Use Types Packs/Day Years Used Date Smoking Tobacco: Never Assessed Sex and Gender Information Value Date Recorded Sex Assigned at Not on file Legal Sex Male 4:08 AM PULLEY 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
--- OUTSIDE RECORDS SUMMARY | 2025-08-05 11:33 | XMS_ITS | Clinical Summary ---
Author Organization [facility] Address [address] [place] [address] [place] [address] Care Team Providers Care Health Coach Name Role Phone Unavailable Primary Care Provider Unavailabl e Social History Tobacco Use Types Packs/Day Years Used Date Smoking Tobacco: Never Assessed Sex and Gender Information Value Date Recorded Sex Assigned at Not on file Legal Sex Male 4:08 AM PIGS FEET CLEANER Gender Identity Not on file Sexual Orientation [...] 1-dose 75+ series) 2019 INFLUENZA VACCINE (#1) [address] [place] [id number] [facility] [address] [facility] [place] [address]
--- OUTSIDE RECORDS SUMMARY | 2025-08-05 11:33 | XMS_ITS | Encounter Summary ---
Author Organization [employer] Address [address] [place] [address] Care Team Providers Care Internal Review And Audit Compliance Name Role Phone Unavailable Primary Care Provider Unavailabl e Encounter Details Date Type Department Care Team (Late st Contact Info) Description 12/14/1999 Outpatient Historical Division of Neurology [address] [facility] [address] [address] (Excluded Provider) [place] [address] [facility] [address] [place] [address] Social History Tobacco Use Types Packs/Day Years Used Date Smoking Tobacco: Never Assessed Sex and Gender Information Value Date Recorded Sex Assigned at Not on file Legal Sex Male 4: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
--- OUTSIDE RECORDS SUMMARY | 2025-08-05 11:33 | XMS_ITS | Clinical Summary ---
Author Organization [facility] [address] [facility] Address [address] [place] [address] Care Team Providers Care Counseling Director Name Role Phone Jay Jay Reynoso MD Unavailable [phone] Jay Jay Reynoso MD Primary Care Provider [phone] Allergies Active Allergy Reactions Criticality Noted Date [...] (100 mg total) by mouth daily Active -oqs b-Tbwhjiin-wst al 27 mg iron-1.13 mg-581.92 mg capsule [...] tablets by mouth every morning [address] (PROTONIX) 20 mg EC [...] MOUTH DAILY 90 tablet 3 025 Active Entresto 24-26 mg tablet TAKE 1 TABLET BY MOUTH TWICE DAILY 180 tablet 3 025 Active metoprolol (LOPRESSOR) 50 [...] (06/22/2019): Added automatically from request for surgery [id number] Chest pain 06/22/2019 Overview (06/22/2019): Added automatically from request for surgery [id number] Encounters Date Type Department Care Team Description 08/02/2025 1:30 PM CDT Ancillary Procedure [facility] [address] [place] [address] [place] [phone] Abnormal ECG; 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 08/02/2025 Telephone [facility] [address] [place] [address] [place] [phone] Ayse Luciano NP 07/31/2025 Telephone [facility] [address] [place] [address] [place] [phone] Ayse Luciano NP Chest Pain 07/30/2025 9:00 AM CDT Office Visit [facility] [address] [place] [phone] Ayse Luciano NP Chest pain due to myocardial ischemia, unspecified ischemic chest pain type (Primary Dx); Abnormal ECG 07/23/2025 Telephone [facility] [address] [place] [address] [place] [phone] Riccardo Chang MD from Last 3 Months Surgical History Surgery Date Site/Laterality Comments KNEE SURGERY CORONARY ARTERY BYPASS GRAFT X 4 HERNIA REPAIR BONE MARROW BIOPSY CARDIAC CATHETERIZATION SKIN CANCER EXCISION scalp Medical History Medical History Date Comments Joint pain Heart disease CHF (congestive heart failure) (HCC) Arthritis Enlarged prostate Hypertension Motion sickness Constipation Urinary retention 11/02/2022 Webber catheter present Type 2 diabetes mellitus TIA (transient ischemic attack) 11/2020 Anemia GERD [...] e alcohol) Social Connection and Isolation Panel Answer Date Recorded In a typical week, how many times do you talk on the phone with family, friends, or neighbors? Twice a week 08/03/20 How often do you get togethe r with friends or relatives? Three times a week 08/03/2023 How often do you attend chur Pulselocker or anglican services? 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 Gender Identity Not on file Sexual Orientation Not on file Obstetrics History Last Filed Vital Signs Vital Sign Reading Time Taken Comments Blood Pressure 112/58 07/30/2025 8:59 AM CDT Pulse 54 07/30/2025 8:59 AM CDT Temperature 36.8 C (98.2 F) 08/03/2023 7:48 AM CDT Respiratory Rate 16 08/03/2023 7:48 AM CDT Oxygen Saturation 98% 07/30/2025 8:59 AM CDT Inhaled Oxygen Concentration - - Weight 66.4 kg (146 lb 6.4 oz) 07/30/2025 8:59 A M CDT Height 167.6 cm (5' 6) 07/30/2025 8:59 AM CDT Body Mass Index 23.63 07/30/2025 8:59 AM CDT Plan of Treatment Health Maintenance Due Date Last Done Comments Albumin Creatinine Ratio, Urine 1944 Depression Screening 1944 Hemoglobin A1C 1944 Dilated Eye Exam 1944 Foot Exam 1944 DTaP/Tdap/Td Vaccine (1 - Tdap) 1955 Hepatitis B Screening 1962 Zoster Vaccine (1 of 2) 1994 Well Visit 65+ 2009 Pneumococcal vaccine 65+ (2 of 2 - PPSV23, PCV20, or PCV21) 02/06/2018 12/12/2017 Fall Risk Assessment 08/03/2024 08/03/2023, 07/12/2022, 07/06/2021, Additional history exists eGFR 08/03/2024 08/03/2023, 11/24, 12/21/2020, Additional history exists Covid-19 Vaccine (4 - 2024-2 6 season) 2025 08/23/2021, 01/15/2021, 12/25/2020 Influenza Vaccine (#1) 2025 09/17/2022, 2017 Lipid Panel 01/09/2026 01/09/2025, 07/24, 09/29/2022, Additional history exists Medical Devices Implanted Type Area Abrasive Water Jet Cutter Operator Device Identifier Shelf Expiration Date Model / Serial / Lot Sitesimon [id number] Device Closure Angio-Seal Vip Bondek-Plus Polyglyd L70 Cm Od6 Fr Odsec.035 In Vascular - [id number] Implanted:Qty: 1 on 07/19/2019 by Riccardo Chang MD at [facility] [employer] 01/22/2020 [id number] / / [employer] Device Closure Vascade Od5 Fr Femoral Artery [id number] - [id number] Implanted:Qty: 1 on 11/04/2022 by Riccardo Chang MD at [facility] [id number] / / Giron [employer] Nephew/Richco/ Ortho R3 56mm 3 Hole Hip Standard Shell Acetabular [id number] - [id number] Implanted:Qty: 1 on 08/02/2023 by Galileo Klein MD at [facility] Left: Hip [employer]hew/Richco/Or tho [id number] 09/16/2031 [id number] / / [id number] G[employer]Rich[employer]/ Ortho R3 56mm 40mm 20d Liner Acetabular Xlpe [id number] - [id number] Implanted:Qty: 1 on 08/02/2023 by Galileo Klein MD at [facility] Left: Hip [employer]Rich[employer]/Or tho [id number] 05/01/2033 [id number] / / [id number] [employer]Richco/ Ortho Polarstem Cementless Hip 6 Standard Stem Femoral Titanium Mcintosh [id number] - [id number] Implanted:Qty: 1 on 08/02/2023 by Galileo Klein MD at [facility] Left: Hip [employer]hew[employer]Richco/Or tho [id number] 04/15/2029 [id number] / / [id number] G[employer]hew[employer]Richco/ Ortho 40mm Modular Hip Head Femoral Oxinium [id number] - [id number] Implanted:Qty: 1 on 08/02/2023 by Galileo Klein MD at [facility] Left: Hip [employer]Richco/Or tho [id number] 04/29/2033 [id number] / / [id number] [employer]hew[employer]Richco/ Ortho Modular Neck Hip +0mm 12/14 Taper Sleeve Femoral Titanium [id number] - [id number] Implanted:Qty: 1 on 08/02/2023 by Galileo Klein MD at [facility] Left: Hip [employer]Rich[employer]/Or tho [id number] 04/25/2033 [id number] / / [id number] Procedures Procedure Name Priority Date/Time Associated Diagnosis Comments ELECTROCARDIOGRAM REPORT Routine 025 4:43 PM CDT Chest pain due to myocardial ischemia, unspecified ischemic chest pain type POCT LIPID PANEL Routine 01/09/2025 1:48 PM CDT Coronary artery disease of [place] artery of [place] heart with stable angina pectoris EGFR Routine 08/03/2023 2:48 AM CDT from Last 3 Months or Most Recently Relevant to Health Maintenance Results * Electrocardiogram Report (07/30/2025 4:43 PM CDT) Ayse Luciano NP ECG ORDERABLES Final Res ult * POCT lipid panel (01/09/2025 1:48 PM [...] MD LAB BLOOD ORDERABLES Final Res ult [facility] [address] [facility] Department [place] [address] from Last 3 Months or Most Recently Relevant to Health Maintenance Insurance [facility] MEDICARE ADVANTAGE [facility] Address: [address] [place] [address] [facility] Address: [address] [address] MEDICARE ADVANTAGE Advance Directives For more information, please contact: [phone] * Full Code (Latest Code Status on File) Date Activated Date Inactivated Comments 08/02/2023 9:03 AM 08/03/2023 8:37 PM Care Teams Counseling Director Relationship Specialty Start Date End Date Jay Jay Reynoso MD PCP - General Family Medicine 09/08/20 Jay Jay Reynoso MD Family Medicine 11/29/19
--- OUTSIDE RECORDS SUMMARY | 2025-08-05 11:33 | XMS_ITS | Encounter Summary ---
Author Organization [employer] Address [address] [place] [address] Care Team Providers Care Pain Management Nurse Practitioner Name Role Phone Unavailable Primary Care Provider Unavailabl e Encounter Details Date Type Department Care Team (Late st Contact Info) Description 01/06/2000 Outpatient Historical [facility] MRI DEPT (Excluded Provider) [place] [address] [facility] [address] [place] [address] Nerv/musculskel sym NEC (Primary Dx) Social History Tobacco Use Types Packs/Day Years Used Date Smoking Tobacco: Never Assessed Sex and Gender Information Value Date Recorded Sex Assigned at Not on file Legal Sex Male 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
--- OUTSIDE RECORDS SUMMARY | 2025-08-05 11:33 | XMS_ITS | Encounter Summary ---
Author Organization [employer] Address 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
--- OUTSIDE RECORDS SUMMARY | 2025-08-05 11:33 | XMS_ITS | Encounter Summary ---
Author Organization [employer] Address [address] [place] [address] Care Team Providers Care Baker Bench Name Role Phone Unavailable Primary Care Provider Unavailabl e Encounter Details Date Type Department Care Team (Late st Contact Info) Description 01/26/2000 Outpatient Historical Division of Neu[facility] [address] [facility] [address] [address] (Excluded Provider) [place] [address] [address] [facility] [address] [place] [address] Social History Tobacco Use Types Packs/Day Years Used Date Smoking Tobacco: Never Assessed Sex and Gender Information Value Date Recorded Sex Assigned at Not on file Legal Sex Male 4: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
--- OUTSIDE RECORDS SUMMARY | 2025-08-05 11:33 | XMS_ITS | Encounter Summary ---
Author Organization [facility] Address [address] [place] [address] Phone Care Team Providers Care Billet Assembler Name Role Phone Diego Nunez MD Primary Care Provider [phone] Jay Jay Reynoso MD Unavailable [phone] Rosibel Rodrigues DPT Unavailable [phone] Jay Jay Reynoso MD Primary Care Provider [phone] Encounter Details Date Type Department Care Team (Late st Contact Info) Description 07/16/[address] [facility] Physical Therapy [address] [address] Fidelia Macias, B.A. 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 [address] [place] [address] PCP - General Internal Medicine 11/29/19 09/07/20 Jay Jay Reynoso MD [address] [facility] [address] [place] [address] PCP - General Family Medicine 09/08/20 Jay Jay Reynoso MD [address] [facility] [address] [place] [address] Family Medicine 11/29/19 Rosibel Rodrigues DPT [address] [facility] [address] [place] [address] Physical Therapist Physical Therapy 06/25/20 09/01/20 documented as of this encounter
--- OUTSIDE RECORDS SUMMARY | 2025-08-05 11:33 | XMS_ITS | Encounter Summary ---
Author Organization [facility] Address [address] [place] [address] Care Team Providers Care Undraped Artist Model Name Role Phone Jay Jay Reynoso MD Unavailable [phone] Jay Jay Reynoso MD Primary Care Provider [phone] Encounter Details Date Type Department Care Team (Late st Contact Info) Description 08/02/[address] [facility] Medical Group Cardiology [address] [facility] [address] [facility] [address] [place] [address] Ayse Luciano NP [address] [place] [place] [address] Social History Tobacco Use Types Packs/Day Years [...] often do you attend chur ch or mosque services? 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 * Telephone Encounter - Reema Brooks RN - 08/02/2025 4:38 PM CDT Spoke to rep from [employer], Pt had episode of A-Flutter, rate of 106, no symptoms report, copy of strips scanned into the system. Forwarded to CT for review documented in this encounter Plan of Treatment Not on file documented as of this encounter Visit Diagnoses Not on filedocumented in this encounter Care Teams Undraped Artist Model Relationship Specialty Start Date End Date Jay Jay Reynoso MD PCP - General Family Medicine 09/08/20 Jay Jay Reynoso MD Family Medicine 11/29/19 documented as of this encounter
--- OUTSIDE RECORDS SUMMARY | 2025-08-05 11:33 | XMS_ITS | Clinical Summary ---
Author Organization [facility] [employer] Address [address] [place] [address] Care Team Providers Care Mounter Hand Name Role Phone Jay Jay Reynoso MD Primary Care Provider [phone] Source Comments [facility] Affiliates and Associated Physician Practices is amultiple site organization consisting of ambulatory clinics and hospital sitesin [place], [place], [place] and [place]. This disclosure is being madepursuant to the Care Everywhere program and may not contain all information available regarding this patient. Last updated 18.[facility] [employer] Allergies Active Allergy Reactions Criticality Noted Date [...] on file Legal Sex Male 6:18 AM HEADING SAW OPERATOR Gender Identity Male 04/11/2021 8:06 AM CDT Sexual Orientation Not on file Last Filed Vital Signs Vital Sign Reading Time Taken Comments Blood Pressure 107/71 12/22/2022 2:45 PM HEADING SAW OPERATOR Pulse 72 12/22/2022 2:45 PM HEADING SAW OPERATOR Temperature 36.8 C (98.2 F) 12/22/2022 2:45 PM HEADING SAW OPERATOR Respiratory Rate 16 12/22/2022 2:45 PM HEADING SAW OPERATOR Oxygen Saturation 98% 12/22/2022 2:45 PM HEADING SAW OPERATOR Inhaled Oxygen Concentration - - Weight 68 kg (150 lb) 12/22/2022 10:19 AM HEADING SAW OPERATOR Height 165.1 cm (5' 5) 12/22/2022 9:57 AM HEADING SAW OPERATOR Body Mass Index 24.96 12/22/2022 9:57 AM HEADING SAW OPERATOR Plan of Treatment Health Maintenance Due Date Last Done Comments DTAP/TDAP/TD VACCINES (1 - Tdap) 1963 PNEUMOCOCCAL VACCINE 50+ (1 of 1 - PCV) 1994 ZOSTER VACCINE (1 of 2) 1994 Respiratory Syncytial Virus (RSV) Vaccine Pt: or over 60 yrs (1 - 1-dose 75+ series) 2019 DEPRESSION SCREENING 10/24/2024 MEDICARE AWV CALENDAR YEAR 2024 COVID-19 VACCINE ( - 2024-2 6 season) 2025 08/23/2021, 01/15/2021, 12/25/2020 INFLUENZA VACCINE (#1) 2025 09/17/2022 HEPATITIS B VACCINE Aged Out [...] to complete this [place] [address] UHC MANAGED MEDICARE ADV UHC MANAGED MEDICARE ADV Member Subscriber Plan / Payer (Ef fective for All Dates) Name:Darien Ramirez Relation to Subscriber:Self Name:Darien Ramirez Payer ID:[id number] (NAIC) Type:Medicare-Managed Care Address: [id number] [place] [phone] SELF PAY NO INSURANCE Member Subscriber Plan / Payer (Ef fective for All Dates) Name:AshleyDarien perez Member ID:Not on file Relation to Subscriber:Not on file Name:ASHLEYDARIEN PEREZ Subscriber ID:Not on file (Home) Address: [address] [place] [address] [place] [address] Payer ID:Not on file Group ID:Not on file Type:Self Pay Address: [place], [place] SELF PAY NO INSURANCE Member Subscriber Plan / Payer (Ef fective for All Dates) Name:Ashley Darien Member ID:Not on file Relation to Subscriber:Not on file Name:ASHLEYDARIEN Subscriber ID:Not on file Address: [address] [place] [address] Payer ID:Not on file Group ID:Not on file Type:Self Pay Address: [facility] MANAGED MEDICARE ADV SELF PAY NO INSURANCE Member Subscriber Plan / Payer (Ef fective for All Dates) Name:Darien Ramirez Member ID:Not on file Relation to Subscriber:Not on file Name:DARIEN RAMIREZ Subscriber ID:Not on file Address: [address] [place] [address] Payer ID:Not on file Group ID:Not on file Type:Self Pay Address: [facility] MANAGED MEDICARE ADV SELF PAY NO INSURANCE Member Subscriber Plan / Payer (Ef fective for All Dates) Name:Darien Ramirez Member ID:Not on file Relation to Subscriber:Not on file Name:DARIEN RAMIREZ Subscriber ID:Not on file Address: [address] [place] [address] Payer ID:Not on file Group ID:Not on file Type:Self Pay Address: [facility] MANAGED MEDICARE ADV Care Teams Mounter Hand Relationship Specialty Start Date End Date Jay Jay Reynoso MD [address] [place] [phone] PCP - General 03/29/12
[2025-08-05 15:19] LABS: MALB Creatinine Ratio 761.7 mg/g (0-30)
== END 2025-08-05 10:31 | disposition home or self-care (01) ==
LOC: ANHGOSHLAB 10:30
PROVIDERS: PCP Family Medicine; Visit Provider Nurse Practitioner Family
DX: E11.9 Type 2 diabetes mellitus without complications (principal); Z79.4 Long term (current) use of insulin
CPT/HCPCS: 82043

== ENCOUNTER 2025-09-13 14:06 | Outpatient (CLI) | payer MEDICARE, SELFPAY ==
--- OUTSIDE RECORDS SUMMARY | 2025-09-13 14:18 | XMS_ITS | Encounter Summary ---
Author Organization [facility] Address [address] [place] [address] Phone Care Team Providers Care Wood Room Hand Name Role Phone Diego Nunez MD Primary Care Provider Jay Jay Reynoso MD Unavailable [phone] Rosibel Rodrigues DPT Unavailable [phone] Jay Jay Reynoso MD Primary Care Provider [phone] Encounter Details Date Type Department Care Team (Late st Contact Info) Description 07/16/2020 Telephone [facility] Physical Therapy [address] [address] Fidelia Macias, B.A. 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 Gender Identity Not on file Sexual Orientation Not on file documented as of this encounter Plan of Treatment Not on file documented as of this encounter Visit Diagnoses Not on filedocumented in this encounter Care Teams Wood Room Hand Relationship Specialty Start Date End Date Diego Nunez MD [address] [facility] [address] [place] [address] PCP - General Internal Medicine 11/29/19 09/07/20 Jay Jay Reynoso MD [address] [facility] [address] [place] [address] PCP - General Family Medicine 09/08/20 Jay Jay Reynoso MD [address] [facility] [address] [place] [address] Family Medicine 11/29/19 Rosibel Rodrigues DPT [address] [facility] [address] [place] [address] Physical Therapist Physical Therapy 06/25/20 09/01/20 documented as of this encounter
--- OUTSIDE RECORDS SUMMARY | 2025-09-13 14:18 | XMS_ITS | Clinical Summary ---
Author Organization [employer] [facility] Address [facility] [place] [address] Care Team Providers Care Geospatial Scientist Name Role Phone Unavailable Primary Care Provider Unavailabl e Social History Tobacco Use Types Packs/Day Years Used Date Smoking Tobacco: Never Assessed Sex and Gender Information Value Date Recorded Sex Assigned at Not on file Legal Sex Male 4:08 AM HEAD SAMPLER Gender Identity Not on file Sexual Orientation [...] series) 2019 INFLUENZA VACCINE (#1) [address] [place] [address] [facility] [id number]
--- OUTSIDE RECORDS SUMMARY | 2025-09-13 14:18 | XMS_ITS | Encounter Summary ---
Author Organization [facility] Address [address] [place] [address] Care Team Providers Care Progressive Care Unit Registered Nurse Name Role Phone Unavailable Primary Care Provider Unavailabl e Encounter Details Date Type Department Care Team (Late st Contact Info) Description 01/26/2000 Outpatient Historical Division of Neurology [address] [facility] [address] [address] (Excluded Provider) [place] [address] [facility] [address] [place] [address] Social History Tobacco Use Types Packs/Day Years Used Date Smoking Tobacco: Never Assessed Sex and Gender Information Value Date Recorded Sex Assigned at Not on file Legal Sex Male 4:08 AM MONORAIL CHARGER 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
--- OUTSIDE RECORDS SUMMARY | 2025-09-13 14:18 | XMS_ITS | Encounter Summary ---
Author Organization [facility] Address [address] [place] [address] Care Team Providers Care Director Distribution Name Role Phone Unavailable Primary Care Provider Unavailabl e Encounter Details Date Type Department Care Team (Late st Contact Info) Description 11/13/1999 Outpatient Historical Division [facility]rology [address] [facility] [address] [address] (Excluded Provider) [place] [address] [facility] [address] [place] [address] Social History Tobacco Use Types Packs/Day Years Used Date Smoking Tobacco: Never Assessed Sex and Gender Information Value Date Recorded Sex Assigned at Not on file Legal Sex Male 4:08 AM JUNIOR ACCOUNT 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
--- OUTSIDE RECORDS SUMMARY | 2025-09-13 14:18 | XMS_ITS | Clinical Summary ---
Author Organization [facility] [address] [facility] Address [address] [place] [address] Care Team Providers Care Passenger Service Supervisor Name Role Phone Jay Jay Reynoso MD Unavailable [phone] Jay Jay Reynoso MD Primary Care Provider [phone] Allergies Active Allergy Reactions Criticality Noted Date [...] (100 mg total) by mouth daily Active qzbktzib01-ebd v-Tcrtokif-cdb al 27 mg iron-1.13 mg-581.92 mg capsule [...] a day 180 tablet 3 024 Active atorvastatin (LIPITOR) 40 mg tablet Take 1 tablet (40 mg total) by mouth daily 30 tablet 11 025 2025 Active isosorbide mononitrate ER (IMDUR) 60 mg 24 hr tablet TAKE 1 TABLET(60 MG) BY MOUTH DAILY 90 tablet 3 025 Active Entresto 24-26 mg tablet TAKE 1 TABLET BY MOUTH TWICE DAILY 180 tablet 3 025 Active apixaban (ELIQUIS) 2.5 mg tablet Take 1 tablet (2.5 mg total) by mouth 2 (two) times a day 60 tablet 3 025 Active carvediloL (COREG) 3.125 mg tablet TAKE 1 TABLET(3.125 MG) BY MOUTH TWICE DAILY WITH MEALS 180 tablet 2 025 Active metoprolol (LOPRESSOR) 50 mg tablet Take 1/2 tablet twice daily 019 2020 Discontinued terazosin (HYTRIN) 10 mg capsule 019 2020 Discontinued carvediloL (COREG) 3.125 mg tablet TAKE 1 TABLET(3.125 MG) BY MOUTH TWICE DAILY WITH MEALS 180 tablet 025 2024 Discontinued Active Problems Problem Noted Date Diagnosed Date Status post total hip replacement, left 08/02/20 23 CAD (coronary artery disease) 07/11/2019 Hx of CABG 07/11/2019 Essential hypertension 07/11/2019 Diabetes mellitus type II, non insulin dependent 07/11/2019 Hyperlipidemia 07/11/2019 Abnormal cardiovascular stress test 06/22/2019 Overview (06/22/2019): Added automatically from request for surgery [id number] Chest pain 06/22/2019 Overview (06/22/2019): Added automatically from request for surgery [id number] Encounters Date Type Department Care Team Description 08/29/2025 Telephone [facility] Medical [facility] Cardiology [address] [place] [phone] Riccardo Chang MD 08/19/2025 Results Follow-Up [facility] Cardiology [address] [facility] [address] [place] [phone] Shahram Remy NP [facility] Mobile Cardiac Telemetry Event Monitor 08/13/2025 Orders Only [facility] Medical Group Cardiology at [address] [place] [address] Cary Putnam MA ECG abnormal (Primary Dx); 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 08/13/2025 Orders Only [facility] Medical Group Cardiology at [address] [place] [phone] Cary Putnam MA 08/09/2025 Orders Only [facility] Cardiology at [address] [place] [address] Keyla Hdez MD 08/07/2025 2:00 PM CDT Ancillary Procedure [facility] Medical [facility] Cardiology [address] [place] [address] [place] [phone] Abnormal ECG; 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 08/06/2025 [address] [place] [phone] Irina Ramesh MA 08/02/2025 1:30 PM CDT Ancillary Procedure [address] [place] [phone] Abnormal ECG; 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 08/02/2025 Tele[address] [place] [phone] Shahram Remy NP 07/31/2025 Telephone [address] [place] [phone] Shahram Remy NP Chest Pain 07/30/2025 9:00 AM CDT Office Visit [address] [place] [phone] Shahram Remy NP Chest pain due to myocardial ischemia, unspecified ischemic chest pain type (Primary Dx); Abnormal ECG 07/23/2025 [address] [place] [phone] Riccardo Chang MD from Last 3 Months [...] often do you attend chur ch or mormon services? 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 Gender Identity Not on file [...] Dilated Eye Exam 1945 Foot Exam 1945 Hepatitis B Screening 1962 Well Visit 65+ 2009 Zoster Vaccine (2 of 3) 08/02/2012 06/07/2012 Fall Risk Assessment 08/03/2024 08/03/2023, 07/12/2022, 07/06/2021, Additional history exists eGFR 08/03/2024 08/03/2023, 11/24, 12/21/2020, Additional history exists Covid-19 Vaccine (4 - 2024-2 6 season) 2025 08/23/2021, 01/15/2021, 12/25/2020 Influenza Vaccine (#1) 2025 , 09/17/2022, 09/25/2018, Additional history exists Lipid Panel 01/09/2026 01/09/2025, 07/24, 09/29/2022, Additional history exists DTaP/Tdap/Td Vaccine (3 - Td or Tdap) 10/10/2027 10/10/2017, 08/15/2008 Pneumococcal vaccine 65+ Completed 018, 07/10/2014, 07/11/2009 Medical Devices Implanted Type Area Urologist Md Device Identifier Shelf Expiration Date Model / Serial / Lot [facility] Denia [id number] Device Closure Angio-Seal Vip Bondek-Plus Polyglyd L70 Cm Od6 Fr Odsec.035 In Vascular - [id number] Implanted:Qty: 1 on 07/19/2019 by Riccardo Chang MD at [facility] [employer] 01/22/2020 [id number] / / [employer] Device Closure Vascade Od5 Fr Femoral Artery [id number] - [id number] Implanted:Qty: 1 on 11/04/2022 by Riccardo Chang MD at [facility] [id number] / / [employer]hew[employer]Rich[employer]/ Ortho R3 56mm 3 Hole Hip Standard Shell Acetabular [id number] - [id number] Implanted:Qty: 1 on 08/02/2023 by Galileo Klein MD at [facility] Left: Hip [employer]Rich[employer]/Or tho [id number] 09/16/2031 [id number] / / [id number] [employer]/ Ortho R3 56mm 40mm 20d Liner Acetabular Xlpe [id number] - [id number] Implanted:Qty: 1 on 08/02/2023 by Galileo Klein MD at [facility] Left: Hip [employer]/Or tho [id number] 05/01/2033 [id number] / / [id number] [employer]/ Ortho Polarstem Cementless Hip 6 Standard Stem Femoral Titanium Mcintosh [id number] - [id number] Implanted:Qty: 1 on 08/02/2023 by Galileo Klein MD at [facility] Left: Hip [employer]/Or tho [id number] 04/15/2029 [id number] / / [id number] [employer]/ Ortho 40mm Modular Hip Head Femoral Oxinium [id number] - [id number] Implanted:Qty: 1 on 08/02/2023 by Galileo Klein MD at [facility] Left: Hip [employer]/Or tho [id number] 04/29/2033 [id number] / / [id number] [employer]/ Ortho Modular Neck Hip +0mm 12/14 Taper Sleeve Femoral Titanium [id number] - [id number] Implanted:Qty: 1 on 08/02/2023 by Galileo Klein MD at [facility] Left: Hip [employer]/Or tho [id number] 04/25/2033 [id number] / / [id number] Procedures Procedure Name Priority Date/Time Associated Diagnosis Comments TRANSTHORACIC ECHO (TTE) COMPLETE W DOPPLER/CF WO CONTRAST Routine 08/07/2025 2:46 PM CDT Abnormal ECG 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 MCT - MOBILE CARDIAC TELEMETRY EVENT MONITOR Routine 08/02/2025 1:00 PM CDT Abnormal ECG 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 TSH Routine 08/02/2025 Abnormal ECG 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 Hyperlipidemia, unspecified hyperlipidemia type Stable angina pectoris COMPREHENSIVE METABOLIC PANEL Routine 08/02/2025 Abnormal ECG 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 CBC WITH AUTO DIFFERENTIAL Routine 08/02/2025 Abnormal ECG 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 ELECTROCARDIOGRAM REPORT Routine 025 4:43 PM CDT Chest pain due to myocardial ischemia, unspecified ischemic chest pain type POCT LIPID PANEL Routine 01/09/2025 1:48 PM CDT Coronary artery disease of [place] artery of [place] heart with stable angina pectoris EGFR Routine 08/03/2023 2:48 AM CDT from Last 3 Months or Most Recently Relevant to Health Maintenance Results * TRANSTHORACIC ECHO (TTE) COMPLETE W DOPPLER/CF WO CONTRAST (08/07/2025 2:46 PM CDT) EF Mod BP 50 % CONS SCIMAGE Anatomical Region Laterality Modality Ultrasound 08/07/2025 2:10 PM CDT Narrative 08/07/2025 8:08 PM CDT [facility] Medical Group Cardiology [address] [facility] [address] [address] [address] [facility] [address], [place] [address] P:[phone] P:[phone] Echocardiographic Report Patient Name: DARIEN RAMIREZ L : 1945 Study Date: 08/07/2025 2:10:53 PM Sex: M Coin Counter And Wrapper: Earlene Silva (R)(CT), [facility] Location: [place] Ref Provider: SHAHRAM REMY Height(Cm): 168 BSA: 1.76 Weight(Kg): 66.2 Heart Rate: 63 BP: 112 / 58 Quality: Good Order Provider: SHAHRAM REMY PROCEDURES: Echocardiographic Report: Transthoracic echocardiogram with complete 2D, M-Mode, and color Doppler examination. With Strain Analysis. INDICATIONS: R94.31 Abnormal electrocardiogram (ECG) (EKG) and I25.112 Atherosclerotic heart disease of [place] coronary artery with refractory angina pectoris. MEASUREMENTS: 2D/MM Value Range Doppler Value Range EF Mod BP 50 % [ 52 - 72 ] JARET Vmax 2.91 cm2 [ 2.00 - 4.00 ] LV GLS -11.83 % AV Mean PG 3 mmHg LVIDd 2D 5.71 cm [ 4.20 - 5.80 ] AV Peak Patricio 1.16 m/s [ 1.00 - 1.70 ] LVIDs 2D 4.45 cm [ 2.50 - 4.00 ] AV Peak PG 5 mmHg LVPWd 2D 1.10 cm [ 0.60 - 1.00 ] AV VTI 23.84 cm IVSd 2D 1.19 cm [ 0.60 - 1.00 ] LVOT Diam 2.15 cm [ 1.70 - 2.10 ] AoR Diam 2D 3.66 cm [ 3.10 - 3.70 ] LVOT Peak Patricio 0.93 m/s [ 0.70 - 1.10 ] LA Volume 89.76 ml [ 18.00 - 58.00 ] LVOT VTI 20.14 cm LA Volume Index 51 cc/m2 [ 16 - 28 ] MV E Peak Patricio 0.71 m/s [ 0.60 - 1.30 ] RA Volume 68.17 ml MV A Peak Patricio 0.28 m/s [ 1.00 - 1.20 ] MV Decel Time 118 msec [ 104 - 258 ] PV Peak Patricio 0.85 m/s [ 0.40 - 0.80 ] TR Peak Patricio 2.09 m/s [ 1.00 - 2.80 ] TR Peak PG 17 mmHg RVSP 22.00 mmHg [ 10.00 - 36.00 ] RV S` 7.28 mmHg Lateral E` 0.14 m/s [ 0.10 - 0.15 ] Septal E` 0.07 m/s [ 0.08 - 0.15 ] E` 0.11 m/s E/E` 7 Tapse 1.49 cm [ 1.71 - 5.00 ] 2D/MM Value Range Doppler Value Range - FINDINGS: Interpretation Site: Exam was interpreted at home. Left Ventricle: Mild concentric left ventricular hypertrophy. Mild enlargement of left ventricle cavity. Borderline LV systolic function. Indeterminate diastolic function. Ejection fraction is measured at 50 %. Global Longitudinal Strain is -12 %. Right Ventricle: Normal right ventricular size. Normal right ventricular systolic function. Left Atrium: There is moderate enlargement of left atrium. Right Atrium: There is mild enlargement of right atrium. Atrial Septum: Atrial septum bowed to the right consistent with elevated left atrial pressures. Mitral Valve: Normal appearance of the mitral valve. Mild mitral valve regurgitation. Aortic Valve: No evidence of hemodynamically significant aortic stenosis by Doppler. Aortic cusps appear mildly sclerotic. Trileaflet aortic valve. Tricuspid Valve: Normal appearance of the tricuspid valve. Estimated peak RVSP is 22 mmHg. Mild tricuspid regurgitation. Pulmonic Valve: Normal appearance of the pulmonic valve. Mild pulmonic regurgitation. Pericardium: Normal pericardium with no significant pericardial effusion. Aorta: Normal aortic root. Sinus of Valsalva 3.7 cm. IVC: Normal size and normal respiratory collapse consistent with normal right atrial pressure (<5 mmHg). CONCLUSIONS: Mild concentric left ventricular hypertrophy. Mild enlargement of left ventricle cavity. Borderline LV systolic function. Indeterminate diastolic function. Ejection fraction is measured at 50 %. Global Longitudinal Strain is abnormal at -12 %. Normal right ventricular size and systolic function. Moderate enlargement of left atrium. Normal appearance of the mitral valve. Mild mitral valve regurgitation. No evidence of hemodynamically significant aortic stenosis by Doppler. Aortic cusps appear mildly sclerotic. Trileaflet aortic valve. Estimated RVSP 22 mmHg. Mild tricuspid and pulmonic regurgitation. Electronically Signed By: Riccardo Chang MD, [facility] 08/07/2025 8:08:03 PM CDT Procedure Note Riccardo Chang MD - 08/07/2025 [facility] Medical Group Cardiology [address] [facility] [address] [id number] [address] [facility] [address] [address] P:[phone] P:[phone] Echocardiographic Report Patient Name: DARIEN RAMIREZ L : 1945 Study Date: 08/07/2025 2:10:53 PM Sex: M Coin Counter And Wrapper: Earlene Ahumada)(CT), [facility] Location: [facility] Provider: SHAHRAM REMY Height(Cm): 168 BSA: 1.76 Weight(Kg): 66.2 Heart Rate: 63 BP: 112 / 58 Quality: Good Order Provider: SHAHRAM REMY PROCEDURES: Echocardiographic Report: Transthoracic echocardiogram with complete 2D, M-Mode, and color Dopplerexamination. With Strain Analysis. INDICATIONS: R94.31 Abnormal electrocardiogram (ECG) (EKG) and I25.112 Atheroscleroticheart disease of [place] coronary artery with refractory angina pectoris. MEASUREMENTS: 2D/MM Value Range Doppler ValueRange EF Mod BP 50 % [ 52 - 72 ] JARET Vmax 2.91cm2 [ 2.00 - 4.00 ] LV GLS -11.83 % AV Mean PG 3mmHg LVIDd 2D 5.71 cm [ 4.20 - 5.80 ] AV Peak Patricio 1.16m/s [ 1.00 - 1.70 ] LVIDs 2D 4.45 cm [ 2.50 - 4.00 ] AV Peak PG 5mmHg LVPWd 2D 1.10 cm [ 0.60 - 1.00 ] AV VTI 23.84cm IVSd 2D 1.19 cm [ 0.60 - 1.00 ] LVOT Diam 2.15cm [ 1.70 - 2.10 ] AoR Diam 2D 3.66 cm [ 3.10 - 3.70 ] LVOT Peak Patricio 0.93m/s [ 0.70 - 1.10 ] LA Volume 89.76 ml [ 18.00 - 58.00 ] LVOT VTI 20.14cm LA Volume Index 51 cc/m2 [ 16 - 28 ] MV E Peak Patricio 0.71m/s [ 0.60 - 1.30 ] RA Volume 68.17 ml MV A Peak Patricio 0.28m/s [ 1.00 - 1.20 ] MV Decel Time 118 msec [ 104 - 258 ] PV Peak Patricio 0.85 m/s [ 0.40 - 0.80 ] TR Peak Patricio 2.09 m/s [ 1.00 - 2.80 ] TR Peak PG 17 mmHg RVSP 22.00 mmHg [ 10.00 - 36.00 ] RV S` 7.28 mmHg Lateral E` 0.14 m/s [ 0.10 - 0.15 ] Septal E` 0.07 m/s [ 0.08 - 0.15 ] E` 0.11 m/s E/E` 7 Tapse 1.49 cm [ 1.71 - 5.00 ] 2D/MM Value Range Doppler ValueRange - FINDINGS: Interpretation Site: Exam was interpreted at home. Left Ventricle: Mild concentric left ventricular hypertrophy. Mild enlargement of leftventricle cavity. Borderline LV systolic function. Indeterminate diastolic function.Ejection fraction is measured at 50 %. Global Longitudinal Strain is -12 %. Right Ventricle: Normal right ventricular size. Normal right ventricular systolicfunction. Left Atrium: There is moderate enlargement of left atrium. Right Atrium: There is mild enlargement of right atrium. Atrial Septum: Atrial septum bowed to the right consistent with elevated left atrialpressures. Mitral Valve: Normal appearance of the mitral valve. Mild mitral valve regurgitation. Aortic Valve: No evidence of hemodynamically significant aortic stenosis by Doppler.Aortic cusps appear mildly sclerotic. Trileaflet aortic valve. Tricuspid Valve: Normal appearance of the tricuspid valve. Estimated peak RVSP is 22 mmHg.Mild tricuspid regurgitation. Pulmonic Valve: Normal appearance of the pulmonic valve. Mild pulmonic regurgitation. Pericardium: Normal pericardium with no significant pericardial effusion. Aorta: Normal aortic root. Sinus of Valsalva 3.7 cm. IVC: Normal size and normal respiratory collapse consistent with normal rightatrial pressure (<5 mmHg). CONCLUSIONS: Mild concentric left ventricular hypertrophy. Mild enlargement of leftventricle cavity. Borderline LV systolic function. Indeterminate diastolic function.Ejection fraction is measured at 50 %. Global Longitudinal Strain is abnormal at -12 %. Normal right ventricular size and systolic function. Moderate enlargement of left atrium. Normal appearance of the mitral valve. Mild mitral valve regurgitation. No evidence of hemodynamically significant aortic stenosis by Doppler.Aortic cusps appear mildly sclerotic. Trileaflet aortic valve. Estimated RVSP 22 mmHg. Mild tricuspid and pulmonic regurgitation. Electronically Signed By: Riccardo Chang MD, [facility] 08/07/2025 8:08:03 PM CDT Shahram Remy NP CV ECHO PROCEDURES Final Result * [facility] Mobile Cardiac Telemetry Event Monitor (08/02/2025 1:00 PM CDT) Anatomical Region Laterality Modality Electrocardiogra phy Narrative 08/19/2025 1:22 PM CDT AMBULATORY INSECTICIDE SPRAYER REPORT Patient Name: Darien Ramirez Date of : 1945 Requesting Physician: shahram remy Date of interpretation: 08/19/25 Type of monitor : 14 day mobile cardiac outpatient telemetry Date of the study/Enrollment period: August 02 till August 15, 2025 Indication: Abnormal EKG, atherosclerotic heart disease Quality of the study: Artifact time 1% Interpretation: Average heart rate was 88 beats per minute with a minimum heart rate 54 beats per minute and maximum heart rate 160 beats per minute. Patient was in atrial fibrillation during the recording time. No evidence of significant pauses or blocks. Intraventricular conduction delay observed. Patient was asymptomatic during the monitoring time. Conclusions: Atrial fibrillation/flutter with controlled average heart rate. Intraventricular conduction delay. Voice recognition software was used to complete this document, therefore, commercial collections driver variances may occur. Wendy Gregg MD, [facility] 08/19/25 Procedure Note Wendy Gregg MD - 08/19/2025 AMBULATORY INSECTICIDE SPRAYER REPORT Patient Name: Darien Ramirez Date of : 1945 Requesting Physician: shahram remy Date of interpretation: 08/19/25 Type of monitor : 14 day mobile cardiac outpatient telemetry Date of the study/Enrollment period: August 02 till August 15, 2025 Indication: Abnormal EKG, atherosclerotic heart disease Quality of the study: Artifact time 1% Interpretation: Average heart rate was 88 beats per minute with a minimum heart rate 54beats per minute and maximum heart rate 160 beats per minute. Patient wasin atrial fibrillation during the recording time. No evidence ofsignificant pauses or blocks. Intraventricular conduction delay observed.Patient was asymptomatic during the monitoring time. Conclusions: Atrial fibrillation/flutter with controlled average heart rate. Intraventricular conduction delay. Voice recognition software was used to complete this document, therefore,commercial collections driver variances may occur. Wendy Gregg MD, [facility] 08/19/25 Shahram Remy NP [facility] Final Result * (ABNORMAL) CBC with auto differential (08/02/2025) SCRIBED WBC 3.3(A) 3.8 - 9.9 K/cumm EXTERNAL LAB SCRIBED Hemoglobin 10.2(A) 13.0 - 17.5 g/dL EXTERNAL LAB SCRIBED Hematocrit 31.6(A) 35.6 - 45.5 % EXTERNAL LAB SCRIBED Platelets 162 150 - 400 K/cumm EXTERNAL LAB SCRIBED MPV 9.6 9.1 - 12.3 fL EXTERNAL LAB SCRIBED RBC 2.75(A) 4.30 - 5.80 M/cumm EXTERNAL LAB SCRIBED MCV 114.9(A) 81.3 - 96.4 fL EXTERNAL LAB SCRIBED MCH 37.1(A) 27.1 - 33.3 pg EXTERNAL LAB SCRIBED MCHC 32.3 32.3 - 35.7 g/dL EXTERNAL LAB SCRIBED RDW 14.8 % EXTERNAL LAB Blood 08/02/2025 Shahram Cope [facility] CONSULT[facility] LAB BLOOD ORDERABLES Edit ed Result - Final EXTERNAL LAB * TSH (08/02/2025) Pathologist [facility] Scribed TSH 1.56 0.47 - 4.68 mcU/mL EXTERNAL LAB Blood 08/02/2025 Shahram Cope [facility] CONS[facility] LAB BLOOD ORDERABLES Shira l Result EXTERNAL LAB * (ABNORMAL) Comprehensive metabolic panel (08/02/2025) SCRIBED Sodium 138 135 - 145 mmol/L EXTERNAL LAB SCRIBED Potassium 4.9 3.3 - 5.2 mmol/L EXTERNAL LAB SCRIBED Chloride 105 97 - 110 mmol/L EXTERNAL LAB SCRIBED Carbon Dioxide 25 22 - 32 mmol/L EXTERNAL LAB SCRIBED Anion Gap 8 2 - 15 mmol/L EXTERNAL LAB SCRIBED Urea Nitrogen (BUN) 30(A) 6 - 25 mg/dL EXTERNAL LAB SCRIBED Creatinine 1.50(A) 0.80 - 1.30 mg/dL EXTERNAL LAB SCRIBED Glucose 184 70 - 199 mg/dL EXTERNAL LAB SCRIBED Calcium 9.0 8.5 - 10.3 mg/dL EXTERNAL LAB SCRIBED Bilirubin 0.3 0.1 - 1.2 mg/dL EXTERNAL LAB SCRIBED Plasma Protein 7.0 6.5 - 8.5 g/dL EXTERNAL LAB SCRIBED Albumin 4.1 3.5 - 5.0 g/dL EXTERNAL LAB SCRIBED Alkaline Phosphatase 59 40 - 130 Units/L EXTERNAL LAB SCRIBED Alanine Transaminase (ALT) 14 7 - 55 Units/L EXTERNAL LAB SCRIBED Aspartate Transaminase (AST) 20 10 - 50 Units/L EXTERNAL LAB Blood 08/02/2025 Shahram Remy NP LAB BLOOD ORDERABLES Edit ed Result - Final EXTERNAL LAB * Electrocardiogram Report (07/30/2025 4:43 PM CDT) Shahram Remy NP ECG ORDERABLES Final Res ult * [...] MD LAB BLOOD ORDERABLES Final Res ult [facility] [address] [facility] Department of Laboratories [place], [place] [id number] from Last 3 Months or Most Recently Relevant to Health Maintenance Insurance [facility] Address: [facility] [address] [place] [address] [facility] MEDICARE ADVANTAGE [facility] MEDIC[facility] Address: [address] [address] [facility] MEDICARE ADVANTAGE [facility] MEDIC[facility] Address: [address] [address] Advance Directives For more information, please contact: [phone] * Full Code (Latest Code Status on File) Date Activated Date Inactivated Comments 08/02/2023 9:03 AM 08/03/2023 8:37 PM Care Teams Passenger Service Supervisor Relationship Specialty Start Date End Date Jay Jay Reynoso MD PCP - General Family Medicine 09/08/20 Jay Jay Reynoso MD Family Medicine 11/29/19
--- OUTSIDE RECORDS SUMMARY | 2025-09-13 14:18 | XMS_ITS | Encounter Summary ---
Author Organization [facility] Address 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
--- OUTSIDE RECORDS SUMMARY | 2025-09-13 14:18 | XMS_ITS | Encounter Summary ---
Author Organization [facility] Address [address] [place] [address] Care Team Providers Care Vehicle Inspector Name Role Phone Unavailable Primary Care Provider Unavailabl e Encounter Details Date Type Department Care Team (Late st Contact Info) Description 12/14/1999 Outpatient Historical Division of Neurology [address] [address] (Excluded Provider) [place] [address] [facility] [address] [place] [address] Social History Tobacco Use Types Packs/Day Years Used Date Smoking Tobacco: Never Assessed Sex and Gender Information Value Date Recorded Sex Assigned at Not on file 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
--- OUTSIDE RECORDS SUMMARY | 2025-09-13 14:18 | XMS_ITS | Patient Health Record ---
Author Organization [facility] Address 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 confirmed Problem Localized, primary osteoarthritis of the pelvic region and thigh (598710390) Unilateral primary osteoarthritis, left hip (M16.12) Active confirmed Plan Of Treatment Pending Test Test Name Order Date X ray : Hip, left 05/02/2023 Insurance Providers Payer Name Payer Address Payer Phone Subscriber Number Group Number Insured Name Patient Relationship to Insured Coverage Start Date Coverage End Date [employer] Medicare Advantage [address] [address] [place] [address] [id number] Kai Stewart Self - patient is the insured Medical (General) History Medical History History ICD Code Arthritis: Yes Congestive Heart Failure: Yes Diabetes, type I: Yes High blood pressure: Yes Surgical History Surgery Date(Month/Year)
--- OUTSIDE RECORDS SUMMARY | 2025-09-13 14:18 | XMS_ITS | Clinical Summary ---
Author Organization [facility] Address [address] [address] Care Team Providers Care Job Placement Specialist Name Role Phone Jay Jay Reynoso MD Primary Care Provider [phone] Source Comments [facility],non-[facility] Affiliates and Associated Physician Practices is amultiple site organization consisting of ambulatory clinics and hospital sitesin [place] and [place]. This disclosure is being madepursuant to the Care Everywhere program and may not contain all information available regarding this patient. 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 Gender Identity Male 04/11/2021 8:06 AM CDT Sexual Orientation Not on file Last Filed Vital Signs Vital Sign Reading Time Taken Comments Blood Pressure 107/71 12/22/2022 2:45 PM AUTO ELECTRICAL TECHNICIAN Pulse 72 12/22/2022 2:45 PM AUTO ELECTRICAL TECHNICIAN Temperature 36.8 C (98.2 F) 12/22/2022 2:45 PM AUTO ELECTRICAL TECHNICIAN Respiratory Rate 16 12/22/2022 2:45 PM AUTO ELECTRICAL TECHNICIAN Oxygen Saturation 98% 12/22/2022 2:45 PM AUTO ELECTRICAL TECHNICIAN Inhaled Oxygen Concentration - - Weight 68 kg (150 lb) 12/22/2022 10:19 AM AUTO ELECTRICAL TECHNICIAN Height 165.1 cm (5' 5) 12/22/2022 9:57 AM AUTO ELECTRICAL TECHNICIAN Body Mass Index 24.96 12/22/2022 9:57 AM AUTO ELECTRICAL TECHNICIAN Plan of Treatment Health Maintenance Due Date [...] to complete this topic [place] [address] [employer] MANAGED MEDICARE ADV [employer] MANAGED MEDICARE ADV SELF PAY NO INSURANCE Member Subscriber Plan / Payer (Ef fective for All Dates) Name:AshleyDarien perez Member ID:Not on file Relation to Subscriber:Not on file Name:ASHLEYDARIEN PEREZ Subscriber ID:Not on file (Home) Address: [address] [place] [address] [place] [address] Payer ID:Not on file Group ID:Not on file Type:Self Pay Address: [place] SELF PAY NO INSURANCE Member Subscriber Plan / Payer (Ef fective for All Dates) Name:Ashley Darien Member ID:Not on file Relation to Subscriber:Not on file Name:ASHLEYDARIEN Subscriber ID:Not on file Address: [address] [place] [address] Payer ID:Not on file Group ID:Not on file Type:Self Pay Address: [facility] MANAGED MEDICARE ADV SELF PAY NO INSURANCE Member Subscriber Plan / Payer (Ef fective for All Dates) Name:Darien Ramirez Member ID:Not on file Relation to Subscriber:Not on file Name:DARIEN RAMIREZ Subscriber ID:Not on file Address: [address] [place] [address] Payer ID:Not on file Group ID:Not on file Type:Self Pay Address: [facility] MANAGED MEDICARE ADV SELF PAY NO INSURANCE Member Subscriber Plan / Payer (Ef fective for All Dates) Name:Darien Ramirez Member ID:Not on file Relation to Subscriber:Not on file Name:DARIEN RAMIREZ Subscriber ID:Not on file Address: [address] [place] [address] Payer ID:Not on file Group ID:Not on file Type:Self Pay Address: [facility] MANAGED MEDICARE ADV Care Teams Job Placement Specialist Relationship Specialty Start Date End Date Jay Jay Reynoso MD [address] [place] [phone] PCP - General 03/29/12
--- OUTSIDE RECORDS SUMMARY | 2025-09-13 14:18 | XMS_ITS | Encounter Summary ---
Author Organization [facility] Address [address] [place] [address] Care Team Providers Care Athletic Turf Worker Name Role Phone Unavailable Primary Care Provider Unavailabl e Encounter Details Date Type Department Care Team (Late st Contact Info) Description 01/06/2000 Outpatient Historical [facility] MRI DEPT (Excluded Provider) [place] [address] [address] [facility] [address] [place] [id number] Nerv/musculskel sym NEC (Primary Dx) Social History Tobacco Use Types Packs/Day Years Used Date Smoking Tobacco: Never Assessed Sex and Gender Information Value Date Recorded Sex Assigned at Not on file 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
--- OUTSIDE RECORDS SUMMARY | 2025-09-13 14:18 | XMS_ITS | Encounter Summary ---
Author Organization [facility] Address 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
[2025-09-13 14:54] LABS: Hematocrit 26.4 % (42.0-52.0); Hemoglobin 8.6 g/dL (14.0-18.0); Immature Granulocyte Percent A 0.3 % (0-0.5); Lymphocytes Absolute Auto 1.57 K/mm3 (0.9-3.2); Mean Corpuscular HGB Conc 32.6 g/dl (32-36); Mean Corpuscular Hemoglobin 37.1 pg (26-34); Mean Corpuscular Volume 113.8 fl (80-100); Nucleated Red Blood Cells Absolute Auto 0.000 K/mm3 (0.0-0.012); Nucleated Red Blood Cells Perc 0.0 % (0.0-0.2); Platelet Count Result 144 k/mm3 (150-375); Red Blood Count 2.32 M/mm3 (4.6-6.20); White Blood Count 3.3 K/mm3 (4.5-10.0)
[2025-09-13 17:23] LABS: Macrocytosis 1+ (NORMAL)
[2025-09-13 17:24] LABS: Band Neutrophils Percent 0 % (0-6); Schistocytes None Seen
== END 2025-09-13 14:07 | disposition home or self-care (01) ==
PROVIDERS: PCP Family Medicine; Visit Provider Nurse Practitioner Adult Health
DX: R94.31 Abnormal electrocardiogram [ECG] [EKG] (principal); I25.112 Atherosclerotic heart disease of native coronary artery with refractory angina pectoris
CPT/HCPCS: 36415; 85025